=== PATIENT | male | born 1945 | race Caucasian/White ===

== ENCOUNTER → 2018-09-06 | Outpatient (CLI) | payer MEDICARE ==
--- NOTE | 2018-09-07 08:57 | XR ---
EXAMINATION TYPE: XR chest 2V DATE OF EXAM: 09/06/2018 COMPARISON: NONE HISTORY: Influenza and shortness of breath TECHNIQUE: Frontal and lateral views of the chest are obtained. FINDINGS: Patient is rotated. Suspect heart may be enlarged. No evident airspace disease, pneumothor ax, or pleural effusion. Prominent lung volume may be indicative of underlying COPD. Bone mineralizat ion is normal. Flowing anterior osteophytes along the thoracic spine with relative preservation of th e disc spaces may be indicative of diffuse idiopathic skeletal hyperostosis. Aorta is dense. IMPRESSION: Suspect cardiomegaly, additional findings above.
== END ==
LOC: RADXRYALE 16:51
PROVIDERS: ATTEND Family Medicine
DX: J09.X1 Influenza due to identified novel influenza A virus with pneumonia (principal); R06.02 Shortness of breath
CPT/HCPCS: 71046

== ENCOUNTER → 2018-11-19 | Outpatient (CLI) | payer MEDICARE ==
[~2018-11-19] MED LIST: REGADENOSON 0.4 MG/5 ML SYRINGE IV ONE
--- NOTE | 2018-11-19 13:00 | NM ---
EXAMINATION TYPE: NM stress lexiscan cardiolite DATE OF EXAM: 11/19/2018 COMPARISON: Chest x-ray 09/06/2018 HISTORY: Hypertension, morbid obesity TECHNIQUE: After the intravenous administration of 10.24 mCi Tc 99m Sestamibi - Cardiolite resting S PECT images acquired 45 minutes post injection. The patient received 0.4mg Lexiscan, 25.2 mCi Tc 99m Sestamibi - Stress images obtained [address] injection FINDINGS: Review of stress and rest SPECT images demonstrates no distinct perfusion abnormality. Gated analysi s shows normal wall motion with an estimated left ventricular ejection fraction of 61 %. IMPRESSION: No scintigraphic evidence for reversible ischemia.
--- NOTE | 2018-11-19 14:14 | EST ---
EXERCISE STRESS AGE: 73 SEX: M HT: 67" WT: 243 PROTOCOL: Lexiscan Cardiolite Stress Test HEART RATE REST: 75 BLOOD PRESSURE REST: 119/69 MAXIMUM HEART RATE ACHIEVED: 99 MAXIMUM BLOOD PRESSURE: 121/71 INDICATIONS: Difficulty in breathing. CLINICAL INFORMATION: Baseline rhythm is sinus mechanism, rate of 75, right bundle branch block. Baseline blood pressure 119/69 mmHg. Patient received injection of Lexiscan. Electrocardiograph monitoring revealed rare PVCs. There was no evidence of diagnostic ischemic ST deviation. Cardiolite was injected per protocol. CONCLUSION: 1. Nondiagnostic electrocardiograph stress testing. 2. Nuclear images will be reported separately. MMODL / IJN: [id number] /
== END | disposition home or self-care (01) ==
LOC: RADNMMAIN 07:41
PROVIDERS: ATTEND Family Medicine
DX: R06.02 Shortness of breath (principal); I10 Essential (primary) hypertension; E78.2 Mixed hyperlipidemia; E66.01 Morbid (severe) obesity due to excess calories
CPT/HCPCS: 93017; 78452; A9500; J2785

== ENCOUNTER → 2019-03-18 | Outpatient (CLI) | payer MEDICARE ==
--- NOTE | 2019-03-18 18:07 | US ---
EXAMINATION TYPE: US carotid duplex BILAT DATE OF EXAM: 03/18/2019 COMPARISON: NONE CLINICAL HISTORY: G31.84 Mild cognitive impairment, so stated. EXAM MEASUREMENTS: RIGHT: Peak Systolic Velocity (PSV) cm/sec ----- Right CCA: 54.7 ----- Right ICA: 64.0 ----- Right ECA: 94.6 ICA/CCA ratio: 1.1 RIGHT: End Diastole cm/sec ----- Right CCA: 13.7 ----- Right ICA: 19.9 ----- Right ECA: 15.4 LEFT: Peak Systolic Velocity (PSV) cm/sec ----- Left CCA: 75.0 ----- Left ICA: 70.8 ----- Left ECA: 84.8 ICA/CCA ratio: .9 LEFT: End Diastole cm/sec ----- Left CCA: 16.1 ----- Left ICA: 19.6 ----- Left ECA: 16.8 VERTEBRALS (direction of flow): Right Vertebral: Antegrade Left Vertebral: Antegrade Rhythm: Normal No significant stenosis seen IMPRESSION: 1. Atherosclerotic plaque with no significant hemodynamic stenosis Criteria for Assigning % of Stenosis / Diameter reduction (Estimation based on the indirect measurements of the internal carotid artery velocities (ICA PSV). 1. Normal (no stenosis)=ICA PSV < 125 cm/s: ratio < 2.0: ICA EDV<40 cm/s. 2. Less than 50% stenosis=ICA PSV < 125 cm/s: ratio < 2.0: ICA EDV<40 cm/s. 3. 50 to 69% stenosis=ICA PSV of 125 to 230 cm/s: ration 2.0 ? 4.0: ICA EDV 40-100 cm/s. 4. Greater than 70% stenosis to near occlusion= ICA PSV > 230 cm/s: ratio > 4.0: ICA EDV > 100 cm/s. 5. Near occlusion= ICA PSV velocities may be low or undetectable: variable ratio and ICA EDV. 6. Total occlusion=unable to detect flow.
== END | disposition home or self-care (01) ==
LOC: RADUSWWP 16:17
PROVIDERS: ATTEND Family Medicine
DX: I65.23 Occlusion and stenosis of bilateral carotid arteries (principal)
CPT/HCPCS: 93880

== ENCOUNTER → 2019-05-27 | Outpatient (CLI) | payer MEDICARE ==
--- NOTE | 2019-05-27 11:01 | XR ---
Lumbosacral spine HISTORY: Low back pain 5 views of lumbosacral spine There is multilevel spondylosis. Lumbar vertebral bodies show preserved height, alignment, bone raise miner alization. Sclerosis present in the posterior elements of the lower lumbar spine is consistent with f acet arthropathy. Loss of disc height at intervertebral levels especially L4-5 and L5-S1 is accompani ed with vacuum disc phenomenon. Atherosclerotic vascular calcifications are present. No evident spond ylolysis on oblique views. IMPRESSION: Degenerative disc disease and facet arthropathy.
== END | disposition home or self-care (01) ==
LOC: RADXRYALE 10:22
PROVIDERS: ATTEND Family Medicine
DX: M51.37 Other intervertebral disc degeneration, lumbosacral region (principal); M46.97 Unspecified inflammatory spondylopathy, lumbosacral region
CPT/HCPCS: 72110

== ENCOUNTER 2021-12-10 10:20 | Inpatient (IN) | payer MEDICARE ==
[2021-12-10] MEDS ORDERED: SODIUM CHLORIDE 0.9% 1,000 ML IV STA (10:30)
--- NOTE | 2021-12-10 10:34 | ED ---
General Adult HPI - General Stated complaint: GI Bleed Time Seen by Provider: 12/10/21 10:20 Source: patient, RN notes reviewed, old records reviewed - History of Present Illness Initial comments: This is a 76-year-old male presents emergency Department complaining of rectal bleeding. Patient states started on Thursday and has been continuous since. Patient states he was a little lightheaded this morning daughter thought it was a little confused so she called EMS. Patient is alert and oriented 3 currently. Patient states this happened multiple times in the past and usually does not come to the hospital he states it usually stops on its own but this is been a heaviness she's ever had. Patient states his last colonoscopy was years ago. Patient denies any current lightheadedness or dizziness. Patient denies any chest pain palpitations or difficulty breathing. Patient denies any abdominal pain patient denies nausea vomiting diarrhea. - Related Data Allergies Allergy/AdvReac Type Severity Reaction Status Date / Time No Known Allergies Allergy Unverified 11/19/18 08:12 Review of Systems ROS Statement: Those systems with pertinent positive or pertinent negative responses have been documented in the HPI. ROS Other: All systems not noted in ROS Statement are negative. General Exam - General Exam Comments Initial Comments: GENERAL: Patient is well-developed and well-nourished. Patient is nontoxic and well- hydrated and is in no acute distress. ENT: Neck is soft and supple. No significant lymphadenopathy is noted. Oropharynx is clear. Moist mucous membranes. Neck has full range of motion without eliciting any pain. EYES: The sclera were anicteric and conjunctiva were pink and moist. Extraocular movements were intact and pupils were equal round and reactive to light. Eyelids were unremarkable. PULMONARY: Unlabored respirations. Good breath sounds bilaterally. No audible rales rhonchi or wheezing was noted. CARDIOVASCULAR: There is a regular rate and rhythm without any murmurs gallops or rubs. ABDOMEN: Soft and nontender with normal bowel sounds. RECTAL: Rectal exam there were no hemorrhoids there was bright red blood around the anus. Patient also had blood on the way down his right leg. SKIN: Skin is clear with no lesions or rashes and otherwise unremarkable. NEUROLOGIC: Patient is alert and oriented x3. Cranial nerves II through XII are grossly intact. Motor and sensory are also intact. Normal speech, volume and content. Symmetrical smile. MUSCULOSKELETAL: Normal extremities with adequate strength and full range of motion. LYMPHATICS: No significant lymphadenopathy is noted PSYCHIATRIC: Normal psychiatric evaluation. Course Vital Signs 12/10/21 12/10/21 12/10/21 10:28 11:00 11:30 Temperature 98.2 F Pulse Rate 112 H 105 H 100 Respiratory 18 22 22 Rate Blood Pressure 106/49 69/48 66/42 O2 Sat by Pulse 99 99 99 Oximetry 12/10/21 12/10/21 12:00 12:30 Temperature Pulse Rate 96 96 Respiratory 22 18 Rate Blood Pressure 76/44 93/56 O2 Sat by Pulse 97 96 Oximetry Medical Decision Making - Medical Decision Making Patient's creatinine is elevated and it has not been in the past I will consult nephrology. I spoke with Dr. Guzman about GI bleed he states he is willing to be on consult for that. I spoke with some physicians Dr. Brown she agreed to admit the patient admitted the patient wrote admitting orders. - Lab Data Result diagrams: 12/10/21 10:50 12/10/21 10:50 Lab Results 12/10/21 12/10/21 12/10/21 Range/Units 10:45 10:50 10:50 WBC 10.0 (3.8-10.6) k/uL RBC 3.83 L (4.30-5.90) m/uL Hgb 8.8 L (13.0-17.5) gm/dL Hct 29.3 L (39.0-53.0) % MCV 76.3 L (80.0-100.0) fL MCH 23.0 L (25.0-35.0) pg MCHC 30.2 L (31.0-37.0) g/dL RDW 18.6 H (11.5-15.5) % Plt Count 288 (150-450) k/uL MPV 7.5 Neutrophils % (Manual) 64 % Lymphocytes % (Manual) 20 % Monocytes % (Manual) 15 % Basophils % (Manual) 1 % Neutrophils # (Manual) 6.40 (1.3-7.7) k/uL Lymphocytes # (Manual) 2.00 (1.0-4.8) k/uL Monocytes # (Manual) 1.50 H (0-1.0) k/uL Basophils # (Manual) 0.10 (0-0.2) k/uL Nucleated RBCs 0 (0-0) /100 WBC Manual Slide Review Performed Hypochromasia Marked Poikilocytosis Slight Anisocytosis Slight Microcytosis Slight PT (9.0-12.0) sec INR (<1.2) APTT (22.0-30.0) sec Sodium 138 (137-145) mmol/L Potassium 4.8 (3.5-5.1) mmol/L Chloride 106 (98-107) mmol/L Carbon Dioxide 19 L (22-30) mmol/L Anion Gap 13 mmol/L BUN 59 H (9-20) mg/dL Creatinine 3.30 H (0.66-1.25) mg/dL Est GFR (CKD-EPI)AfAm 20 (>60 ml/min/1.73 sqM) Est GFR (CKD-EPI)NonAf 17 (>60 ml/min/1.73 sqM) Glucose 154 H (74-99) mg/dL Calcium 8.7 (8.4-10.2) mg/dL Magnesium 1.9 (1.6-2.3) mg/dL Total Bilirubin 0.6 (0.2-1.3) mg/dL AST 15 L (17-59) U/L ALT 12 (4-49) U/L Alkaline Phosphatase 61 (38-126) U/L Troponin I (0.000-0.034) ng/mL Total Protein 6.0 L (6.3-8.2) g/dL Albumin 3.6 (3.5-5.0) g/dL Blood Type Blood Type Confirm A Positive Blood Type Recheck Bld Type Recheck Status Antibody Screen Spec Expiration Date 12/10/21 12/10/21 12/10/21 Range/Units 10:50 10:50 11:39 WBC (3.8-10.6) k/uL RBC (4.30-5.90) m/uL Hgb (13.0-17.5) gm/dL Hct (39.0-53.0) % MCV (80.0-100.0) fL MCH (25.0-35.0) pg MCHC (31.0-37.0) g/dL RDW (11.5-15.5) % Plt Count (150-450) k/uL MPV Neutrophils % (Manual) % Lymphocytes % (Manual) % Monocytes % (Manual) % Basophils % (Manual) % Neutrophils # (Manual) (1.3-7.7) k/uL Lymphocytes # (Manual) (1.0-4.8) k/uL Monocytes # (Manual) (0-1.0) k/uL Basophils # (Manual) (0-0.2) k/uL Nucleated RBCs (0-0) /100 WBC Manual Slide Review Hypochromasia Poikilocytosis Anisocytosis Microcytosis PT 10.8 (9.0-12.0) sec INR 1.0 (<1.2) APTT 18.9 L (22.0-30.0) sec Sodium (137-145) mmol/L Potassium (3.5-5.1) mmol/L Chloride (98-107) mmol/L Carbon Dioxide (22-30) mmol/L Anion Gap mmol/L BUN (9-20) mg/dL Creatinine (0.66-1.25) mg/dL Est GFR (CKD-EPI)AfAm (>60 ml/min/1.73 sqM) Est GFR (CKD-EPI)NonAf (>60 ml/min/1.73 sqM) Glucose (74-99) mg/dL Calcium (8.4-10.2) mg/dL Magnesium (1.6-2.3) mg/dL Total Bilirubin (0.2-1.3) mg/dL AST (17-59) U/L ALT (4-49) U/L Alkaline Phosphatase (38-126) U/L Troponin I 0.028 (0.000-0.034) ng/mL Total Protein (6.3-8.2) g/dL Albumin (3.5-5.0) g/dL Blood Type A Positive Blood Type Confirm Blood Type Recheck No Previous Record Bld Type Recheck Status CABO Indicated Antibody Screen NEGATIVE Spec Expiration Date 12/13/20212349 Disposition Clinical Impression: GI bleed, Anemia, Acute renal failure Disposition: ADMITTED IP TO THIS [facility] Referrals: None,Stated [Primary Care Provider] - 1-2 days Time of Disposition: 12:54
[2021-12-10 11:13] LABS: Albumin 3.6 g/dL (3.5-5.0); Calcium 8.7 mg/dL (8.4-10.2); Magnesium 1.9 mg/dL (1.6-2.3); Potassium 4.8 mmol/L (3.5-5.1); Total Bilirubin 0.6 mg/dL (0.2-1.3)
[2021-12-10 11:30] LABS: Anisocytosis Slight; HCT 29.3 % (39.0-53.0); HGB 8.8 gm/dL (13.0-17.5); Hypochromasia Marked; MCHC 30.2 g/dL (31.0-37.0); MCV 76.3 fL (80.0-100.0); Mean Platelet Volume 7.5; Microcytosis Slight; Platelet Count 288 k/uL (150-450); Poikilocytosis Slight; RBC 3.83 m/uL (4.30-5.90); RDW 18.6 % (11.5-15.5)
[2021-12-10 12:17] LABS: Prothrombin Time 10.8 sec (9.0-12.0)
[2021-12-10 12:22] LABS: Partial Thromboplastin Time 18.9 sec (22.0-30.0)
[2021-12-10 12:36] LABS: Neutrophils % (M) 64 %; Nucleated Red Blood Cells 0 /100 WBC (0-0); Total Cells Counted 100
[2021-12-10] MEDS ORDERED: SODIUM CHLORIDE 0.9% 1,000 ML IV ONE ×2 (12:54→23:20)
[2021-12-10] MEDS ORDERED: MELATONIN 3 MG TABLET PO PRN (13:32)
[2021-12-10] MEDS ORDERED: ONDANSETRON 4 MG/2 ML VIAL IVP PRN (13:32)
[2021-12-10] MEDS ORDERED: ACETAMINOPHEN TAB 325 MG TAB PO PRN (13:32)
[2021-12-10] MEDS ORDERED: NALOXONE 0.4 MG/ML 1 ML VIAL IV PRN (13:32)
[2021-12-10] MEDS ORDERED: PANTOPRAZOLE 40 MG/10 ML VIAL IVP ONE (13:36)
--- NOTE | 2021-12-10 13:43 | P.HPIM ---
History of Present Illness H&P Date: 12/10/21 Chief Complaint: GI bleed Patient is a 76-year-old male patient of Dr. Joel with diabetes, hypertension, and dyslipidemia who presented to the ER with complaints of bright red blood per rectum. In the ER he underwent extensive evaluation. On arrival he was tachycardic with a pulse of 112. His blood pressure got as low as 66/42. He was given 1 L bolus. Laboratory analysis showed hemoglobin of 8.8, BUN 59, creatinine 3.3. PT/INR was normal. Arrangements are made for admission. Surgery and nephrology were consulted. Patient seen and examined at bedside in the emergency department. His daughter helps with history gathering. He started having rectal bleeding approximately 2 days ago. It continued to worsen and he therefore decided to present to the ER. He states it is pulled bright red and dark with some clots. He has been having consistent and frequent diarrhea. He denies any abdominal pain, nausea. He has been eating and drinking normally. He states that he gets these episodes approximately twice a year but they usually last 2 days and self resolved. He had colonoscopies in the past which were unrevealing his last one was approximately 7 years ago. He has a history of polycythemia and sees Dr. Adorno. He typically has phlebotomy performed if his hemoglobin is greater than 15 or hematocrit is greater than 45. He has been taking more NSAIDs than typical due to a tooth extraction. He denies any shortness of breath, lightheadedness, dizziness, chest pain. No fevers or chills. He reports that he has had increasing edema and Dr. Joel he referred him for echocardiogram due to his murmur and lower extremity edema. Pertinent positives and negatives as discussed in HPI, a complete review of systems was performed and all other systems are negative. Vital signs reviewed General: Ill appearing, mild distress, appears at stated age Derm: warm, dry, blood streaked down both legs Head: atraumatic, normocephalic, symmetric Eyes: EOMI, no lid lag, anicteric sclera, pupils equal round reactive to light ENT: Nose and ears atraumatic, no thrush, no pharyngeal erythema Neck: No thyromegaly, no cervical lymphadenopathy, trachea midline, supple Mouth: no lip lesion, mucus membranes moist Cardiovascular: S1S2 reg, with grade 4 systolic ejection murmur, positive posterior tibial pulse bilateral, 3+ edema, capillary refill less than 2 seconds Lungs: clear to auscultation bilateral, no rhonchi, no rales, no wheeze, no accessory muscle use Abdominal: soft, nontender to palpation, no guarding, no appreciable organomegaly, normal bowel sounds Ext: no gross muscle atrophy, muscle strength muscle strength 5 out of 5 in all 4 extremities, no contractures Neuro: CN II-XII grossly intact, light touch intact all 4 extremities, finger to nose within normal limits, Psych: Alert, oriented, appropriate affect Assessment/Plan: Acute GI bleed Acute blood loss anemia with history of polycythemia NSAID use -IV fluids -Serial hemoglobins -Transfuse for hemoglobin less than 8 -Follow frequent vital signs -Surgery consultation, Heme/onc recs -Nothing by mouth except ice chips - IV PPI Acute kidney injury Metabolic acidosis - hold ACEI, hold HCTZ, hold metformin -Likely related to above -Bladder scan -Check renal ultrasound -IV fluids gentle in the setting of lower extremity edema -Nephrology consultation - avoid additional nephrotoxic agents Lower extremity edema with systolic ejection murmur -Check echocardiogram DM 2 - hold oral - SSI - follow BS Hypertension - hold meds due to bordeline BP - follow BP The patient is admitted with an anticipated greater than 2 midnight stay for evaluation of GI bleed. Surrogate decision-maker: Daughter CODE STATUS:Full DVT prophylaxis: SCDs Discussed with: Patient, ED provider, daugther Anticipated discharge date: in 2-[address]: home A total of 65 minutes was spent on the care of this complex patient more than 50% of the time was spent in counseling and care coordination. Past Medical History Past Medical History: Diabetes Mellitus, Hyperlipidemia, Hypertension Additional Past Medical History / Comment(s): bladder issues, polycthemia, low testerone, heart murmur History of Any Multi-Drug Resistant Organisms: None Reported Past Surgical History: Tonsillectomy Past Psychological History: No Psychological Hx Reported Smoking Status: Former smoker Past Alcohol Use History: None Reported Past Drug Use History: None Reported - Past Family History Father History Unknown: Yes Medications and Allergies Allergies Allergy/AdvReac Type Severity Reaction Status Date / Time No Known Allergies Allergy Unverified 11/19/18 08:12 Physical Exam Osteopathic Statement: *. No significant issues noted on an osteopathic structural exam other than those noted in the History and Physical/Consult. Vitals: Vital Signs Temp Pulse Resp BP Pulse Ox 12/10/21 12:30 96 18 93/56 96 12/10/21 12:00 96 22 76/44 97 12/10/21 11:30 100 22 66/42 99 12/10/21 11:00 105 H 22 69/48 99 12/10/21 10:28 98.2 F 112 H 18 106/49 99 Intake and Output 12/09/21 12/10/21 12/10/21 22:59 06:59 14:59 Other: Weight 97.522 kg Results CBC & Chem 7: 12/10/21 10:50 12/10/21 10:50 Labs: Abnormal Lab Results - Last 24 Hours (Table) 12/10/21 12/10/21 12/10/21 Range/Units 10:50 10:50 11:39 RBC 3.83 L (4.30-5.90) m/uL Hgb 8.8 L (13.0-17.5) gm/dL Hct 29.3 L (39.0-53.0) % MCV 76.3 L (80.0-100.0) fL MCH 23.0 L (25.0-35.0) pg MCHC 30.2 L (31.0-37.0) g/dL RDW 18.6 H (11.5-15.5) % Monocytes # (Manual) 1.50 H (0-1.0) k/uL APTT 18.9 L (22.0-30.0) sec Carbon Dioxide 19 L (22-30) mmol/L BUN 59 H (9-20) mg/dL Creatinine 3.30 H (0.66-1.25) mg/dL Glucose 154 H (74-99) mg/dL AST 15 L (17-59) U/L Total Protein 6.0 L (6.3-8.2) g/dL
[2021-12-10 14:04] LABS: Anisocytosis Slight; HCT 27.7 % (39.0-53.0); HGB 8.1 gm/dL (13.0-17.5); Hypochromasia Marked; MCH 22.4 pg (25.0-35.0); MCHC 29.3 g/dL (31.0-37.0); MCV 76.5 fL (80.0-100.0); Microcytosis Slight; Platelet Count 289 k/uL (150-450); RBC 3.62 m/uL (4.30-5.90); RDW 18.6 % (11.5-15.5); WBC 9.8 k/uL (3.8-10.6)
[2021-12-10 15:07] LABS: Reticulocyte % 3.5 % (0.5-2.0)
[2021-12-10 15:08] LABS: Band Neutrophils % 1 %; Lymphocytes # (M) 1.57 k/uL (1.0-4.8); Monocytes # (M) 0.39 k/uL (0-1.0); Neutrophils % (M) 79 %; Nucleated Red Blood Cells 0 /100 WBC (0-0); Total Cells Counted 100
[2021-12-10 15:09] LABS: Poikilocytosis (M) Present
[2021-12-10 20:12] LABS: Glucose,Whole Blood 131 mg/dL (70-110)
[2021-12-10 20:34] LABS: Anisocytosis Slight; HCT 25.7 % (39.0-53.0); HGB 7.6 gm/dL (13.0-17.5); Hypochromasia Marked; MCH 23.1 pg (25.0-35.0); MCHC 29.7 g/dL (31.0-37.0); MCV 77.7 fL (80.0-100.0); Mean Platelet Volume 6.9; Microcytosis Slight; Platelet Count 257 k/uL (150-450); RBC 3.31 m/uL (4.30-5.90); RDW 18.5 % (11.5-15.5); WBC 8.2 k/uL (3.8-10.6)
[2021-12-10] MEDS: PRAVASTATIN SODIUM 40 MG TAB PO SCH (20:52)
[2021-12-10] MEDS: PANTOPRAZOLE 40 MG/10 ML VIAL IVP SCH (20:53)
[2021-12-10 21:26] LABS: Eosinophils # (M) 0.08 k/uL (0-0.7); Monocytes # (M) 0.49 k/uL (0-1.0); Neutrophils # (M) 5.82 k/uL (1.3-7.7); Neutrophils % (M) 71 %; Nucleated Red Blood Cells 0 /100 WBC (0-0); Total Cells Counted 100
[2021-12-10 23:18] LABS: % Iron Saturation 3.05 (15.00-50.00); Ferritin 15.4 ng/mL (22.0-322.0)
[2021-12-10 23:25] LABS: Immunoglobulin M 29.6 mg/dL (40.0-280.0); Protein, Total 5.5 g/dL (6.2-8.2)
[2021-12-10 23:48] LABS: Glucose,Whole Blood 118 mg/dL (70-110)
[2021-12-11 05:47] LABS: Anisocytosis Slight; HCT 24.2 % (39.0-53.0); HGB 7.3 gm/dL (13.0-17.5); Hypochromasia Marked; MCH 23.8 pg (25.0-35.0); MCHC 30.3 g/dL (31.0-37.0); MCV 78.6 fL (80.0-100.0); Microcytosis Slight; Platelet Count 216 k/uL (150-450); Poikilocytosis Slight; RBC 3.08 m/uL (4.30-5.90); WBC 8.6 k/uL (3.8-10.6)
[2021-12-11 06:01] LABS: Albumin 3.2 g/dL (3.5-5.0); Calcium 7.8 mg/dL (8.4-10.2); Potassium 4.9 mmol/L (3.5-5.1); Total Bilirubin 0.8 mg/dL (0.2-1.3); Total Protein 5.4 g/dL (6.3-8.2)
[2021-12-11 08:17] LABS: Appearance,Urine Clear (Clear); Bilirubin,Urine Negative (Negative); Blood,Urine Negative (Negative); Color,Urine Colorless; Glucose,Urine (UA) Negative (Negative); Ketones,Urine 1+ (Negative); Leukocyte Esterase,Urine Negative (Negative); Nitrite,Urine Negative (Negative); Protein,Urine Negative (Negative); Urobilinogen,Urine <2.0 mg/dL (<2.0)
[2021-12-11] MEDS: PANTOPRAZOLE 40 MG/10 ML VIAL IVP SCH ×2 (08:41→21:45)
--- NOTE | 2021-12-11 08:43 | P.NPCON ---
History of Present Illness - Reason for Consult acute renal failure - History of Present Illness Reason for consultation: Acute kidney injury History of present illness: Patient is a 76-year-old male seen in renal consultation for acute kidney injury. Patient baseline creatinine is in the range of 1-1.2. Creatine on admission was 3.3 and is down to 2.11 today. Patient presented to the hospital due to blood in the stool. Patient noticed bright red blood with bowel movements which started on Thursday. Patient states he's had similar episodes in the past. Patient states the last 2-3 days and resolved spontaneously. He denies any dizziness or syncopal episodes. Denies vomiting or diarrhea. Tess ent's blood pressure was low in the systolic 70s on admission and he did receive a fluid bolus. He has also received a unit of blood and is scheduled to receive another unit today. Patient does admit to taking ibuprofen for the last 3 weeks after he got his teeth pulled. He does have history of diabetes. Denies family history of renal disease. Denies history of heart disease. No vomiting or diarrhea. No fever or chills. He was taking metformin as well as lisinopril outpatient which are both currently held. He's currently receiving IV fluids. Vital signs are stable. General: Awake and alert. No acute distress. HEENT: Head exam is unremarkable. LUNGS: Breath sounds decreased. HEART: Rate and Rhythm are regular. ABDOMEN: Soft, no distention. Nontender. EXTREMITITES: Trace edema. Past Medical History Past Medical History: Blood Disorder, Diabetes Mellitus, Hyperlipidemia, Hypertension Additional Past Medical History / Comment(s): Past rectal bleeds, polycythemia, NIDDM, recently had lower 5 teeth extracted, R lower leg edema, heart murmur, DDD with occasional back pain. History of Any Multi-Drug Resistant Organisms: None Reported Past Surgical History: Tonsillectomy Additional Past Surgical History / Comment(s): Colonoscopies, bilateral cataract removals/lens implants, R mastoid surgery at age 4 yrs. Past Anesthesia/Blood Transfusion Reactions: No Reported Reaction Smoking Status: Former smoker - Past Family History Father History Unknown: Yes Family Medical History: No Reported History Additional Family Medical History / Comment(s): Father was healthy and lived into his 90s. Mother History Unknown: Yes Medications and Allergies Home Medications Medication Instructions Recorded Confirmed Type Aspirin EC [Ecotrin Low Dose] 81 mg PO DAILY 12/10/21 12/10/21 History Multivitamins, Thera [Multivitamin 1 tab PO DAILY 12/10/21 12/10/21 History (formulary)] [place]-3/Dha/Epa/Fish Oil [Fish Oil 1 cap PO TID 12/10/21 12/10/21 History 1,000 mg Softgel] Oxybutynin Chloride [Ditropan] 5 mg PO TID 12/10/21 12/10/21 History Pravastatin Sodium [Pravachol] 40 mg PO HS 12/10/21 12/10/21 History Testosterone Cypionate 200 mg IM Q10D 12/10/21 12/10/21 History [Depo-Testosterone] lisinopriL 40 mg PO DAILY 12/10/21 12/10/21 History metFORMIN HCL [Glucophage] 500 mg PO BID 12/10/21 12/10/21 History Allergies Allergy/AdvReac Type Severity Reaction Status Date / Time No Known Allergies Allergy Verified 12/10/21 13:44 Physical Exam Vitals: Vital Signs Temp Pulse Pulse Resp BP BP Pulse Ox 12/11/21 07:00 101 H 21 102/55 95 12/11/21 06:30 96 14 99/53 94 L 12/11/21 06:00 99 9 L 117/60 93 L 12/11/21 05:30 101 H 12 89/61 94 L 12/11/21 05:00 96 3 L 98/51 92 L 12/11/21 04:30 99 21 94/53 94 L 12/11/21 04:00 98.3 F 95 12 94/48 93 L 12/11/21 03:30 95 12 90/55 94 L 12/11/21 03:00 96 5 L 89/53 93 L 12/11/21 02:45 98 14 97/54 93 L 12/11/21 02:30 121 H 14 97/54 86 L 12/11/21 02:15 100 7 L 98/53 95 12/11/21 02:02 98.2 F 92 14 99/52 94 L 12/11/21 02:00 98 5 L 99/52 96 12/11/21 01:45 99 23 98/56 96 12/11/21 01:30 105 H 25 H 95/53 94 L 12/11/21 01:15 101 H 4 L 93/46 93 L 12/11/21 01:00 99 5 L 93/46 93 L 12/11/21 00:45 105 H 7 L 98/50 94 L 12/11/21 00:30 106 H 14 119/99 97 12/11/21 00:15 104 H 5 L 98/56 89 L 12/11/21 00:00 104 H 12 98/56 95 12/10/21 23:58 97.7 F 104 H 14 98/56 94 L 12/10/21 23:45 105 H 6 L 100/66 94 L 12/10/21 23:30 112 H 9 L 96 12/10/21 23:29 32 H 12/10/21 23:28 98.2 F 109 H 14 124/61 94 L 12/10/21 23:18 98 F 103 H 14 91/52 93 L 12/10/21 20:00 97.5 F L 99 12 78/44 93 L 12/10/21 18:52 97.4 F L 73 16 86/49 99 12/10/21 18:30 86/53 12/10/21 18:24 98.2 F 82 16 100/67 100 12/10/21 18:15 93 13 95/53 100 12/10/21 18:00 92 22 72/52 100 12/10/21 17:45 96 17 102/61 99 12/10/21 17:30 97 5 L 89/55 100 12/10/21 17:15 103 H 24 98/48 99 12/10/21 17:00 92 8 L 100/67 100 12/10/21 16:45 96 32 H 83/47 100 12/10/21 16:43 98 15 83/47 100 12/10/21 16:00 98.1 F 98 18 87/57 99 12/10/21 15:00 92 18 70/58 97 12/10/21 14:53 90 18 70/58 98 12/10/21 14:00 93 18 86/44 98 12/10/21 13:00 101 H 16 83/57 100 12/10/21 12:30 96 18 93/56 96 12/10/21 12:00 96 22 76/44 97 12/10/21 11:30 100 22 66/42 99 12/10/21 11:00 105 H 22 69/48 99 07/05/22 10:28 98.2 F 112 H 18 106/49 99 Intake and Output 12/10/21 12/11/21 12/11/21 22:59 06:59 14:59 Intake Total 2070 75 Output Total 650 100 Balance 1420 -25 Intake: Intake, IV Titration 1450 75 Amount Sodium Chloride 0.9% 1, 450 75 000 ml @ 75 mls/hr IV . [id number] ONE Rx#:[id number] Sodium Chloride 0.9% 1, 1000 000 ml @ 999 mls/hr IV . Q1H1M ONE Rx#:[id number] Blood Product 620 Rc As-1 Unit 310 [id number] Output: Urine 650 100 Other: Voiding Method Toilet Toilet # Voids 2 1 # Bowel Movements 4 Weight 97.522 kg 101.5 kg Results - Lab Results Most recent lab results Calcium 7.8 mg/dL (8.4-10.2) L 12/11/21 05:41 Magnesium 2.0 mg/dL (1.6-2.3) 12/11/21 05:41 12/11/21 05:41 12/11/21 05:41 Assessment and Plan Plan: Assessment: 1. Acute kidney injury mostly prerenal secondary to hypotension. Creatinine was 3.3 on admission and is 2.11 today. Baseline creatinine 1-1.2. UA benign. 2. Acute GI bleed. Status post blood transfusion this admission. Hemoglobin 7.3. Surgery consulted. 3. Metabolic acidosis secondary to acute kidney injury, metformin and IV fluids. 4. History of polycythemia. 5. Diabetes mellitus. Plan: Decrease rate of normal saline to 50 mL an hour. Continue to hold antihypertensives. Scheduled to receive another unit of blood today. Check renal ultrasound. Follow-up echocardiogram. Continue to monitor renal function and urine output. Thank you for the consultation. I will continue to follow the patient with you during his hospital stay.
[2021-12-11] MEDS: SODIUM CHLORIDE 0.9% 1,000 ML IV SCH (09:30)
[2021-12-11] MEDS: LACTATED RINGERS 1,000 ML IV SCH (09:30)
--- NOTE | 2021-12-11 09:41 | US ---
EXAMINATION TYPE: US kidneys/renal and bladder DATE OF EXAM: 12/11/2021 COMPARISON: NONE CLINICAL HISTORY: nba. EXAM MEASUREMENTS: Right Kidney: 12.3 x 5.9 x 5.0 cm Left Kidney: 11.1 x 6.4 x 5.0 cm Right Kidney: No hydronephrosis or masses seen Left Kidney: No hydronephrosis or masses seen Bladder: ANECHOIC, DISTENDED Bilateral Jets seen: Yes There is no evidence for hydronephrosis at this point in time. No nephrolithiasis is seen. No darcy s are identified. The urinary bladder is anechoic. Bilateral ureteral jets are seen. IMPRESSION: No evidence for obstructive uropathy.
[2021-12-11] MEDS: SODIUM FERRIC GLUCONAT-SUCROSE 125 MG in SODIUM CHLORIDE 0.9% 100 ML IVPB SCH (10:00)
--- NOTE | 2021-12-11 10:49 | P.CONS ---
History of Present Illness - Reason for Consult Consult date: 12/10/21 GI Bleed, PV Requesting physician: Marilou Brown - History of Present Illness HPI : Mr. Varghese now presents to hospital with active GI bleeding. He was tachycardic with a pulse of 112. Hypotensive. Hemoglobin 8.8 (when his baseline is 50% greater than this requiring monthly phlebotomy), New onset renal insufficiency BUN 59, creatinine 3.3. No evidence of coagulaopathy. He was admitted to ICU for further eval. He has followed our practice many years, per that record he has had rectal bleeding on and off and has not been adherent to GI evals. However in the record therre is not evidence of an acute severe drop as there is in this admission. To note I do not have if patient has JAK2 or not. Hematological History: Pt is seen f/u and monitoring of his Polycythemia Vera, diagnosed around 2007, for which he receives phlebotomy periodically. The pt has been having rectal bleeding off and on since at least mid 2014. He was recommended to have a GI w/u but did not do so, as he thought this was due to his diet. He stopped eating nuts in late 2014. He had an EGD and colonoscopy in 08/21, which were negative other than diverticulosis. He missed his 09/23 appt as his had been quite ill. She in 10/23. He resumed phlebo in 11/23 He is continuing on baby ASA. telemedicine 10/10/19: The patient has been in his usual state of health overall. He denied any hospital or ER visits. He denied any f/c/n/v/itching or redness of the extremities. He had 2 days of small amounts of BRBPR in 05/25, with spontaneous resolution. he had another recurrence lasting about 3-4 days, with small amounts of blood in stool. He states that he had been eating pistachios, and this stopped once he stopped eating the nuts. He has mild fatigue, which is stable. He has very occasional, transient dizziness. No h/o jt swelling or edema. His ROS is otherwise as per HPI and negative out of 10. as above. Due to increase in hemoglobin and hematocrit. He was changed to phlebotomies every 2 months after his visit in 10/25. He was started on Hydrea 500 mg once a day in 07/29. he had a good response to the same, with Hgb dropping into thge 13 range. At his visit in 09/26, phlebo intervals were increased back to Q 3mths, and Hydrea held per the pt's request At this visit on 04/26/21, Hct was still > 45. The pt was thus asked to restart Hydea at 500 QOD. However he hgas not done so despite repeated urging. He denied any fevers/chills/nausea/vomiting. No history of any redness or itching of the extremities. He has had bleeding per rectum, again in 09/27, lasting about 2 days. He continues on aspirin. 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 Review of systems otherwise as per HPI and negative out of [address] Adorno october 2021, The pt is tolerating his phlebotomies well. His C BC today shows Hgb at 13.9, but HCT remains > 45 at 48 - He was advised that with phlebo alone, hos Hgb is dropping, but Hct is still staying elevated. More aggressive phlebo could potentially drop his Hgb lower than desired. He was thus strongly urged to try Hydrea. Benefits, efficacy, toelrance in general, and possible side effects were discussed ind etail. - He finally stated he was willing to try - Check labs - Repeat Phlebo also initiated the following month Vital signs reviewed Review of Systems All systems: negative Constitutional: Reports as per HPI Past Medical History Past Medical History: Diabetes Mellitus, Hyperlipidemia, Hypertension Additional Past Medical History / Comment(s): bladder issues, polycthemia, low testerone, heart murmur History of Any Multi-Drug Resistant Organisms: None Reported Past Surgical History: Tonsillectomy Past Psychological History: No Psychological Hx Reported Smoking Status: Former smoker Past Alcohol Use History: None Reported Past Drug Use History: None Reported - Past Family History Father History Unknown: Yes Mother History Unknown: Yes Medications and Allergies Home Medications Medication Instructions Recorded Confirmed Type Aspirin EC [Ecotrin Low Dose] 81 mg PO DAILY 12/10/21 12/10/21 History Multivitamins, Thera [Multivitamin 1 tab PO DAILY 12/10/21 12/10/21 History (formulary)] [place]-3/Dha/Epa/Fish Oil [Fish Oil 1 cap PO TID 12/10/21 12/10/21 History 1,000 mg Softgel] Oxybutynin Chloride [Ditropan] 5 mg PO TID 12/10/21 12/10/21 History Pravastatin Sodium [Pravachol] 40 mg PO HS 12/10/21 12/10/21 History Testosterone Cypionate 200 mg IM Q10D 12/10/21 12/10/21 History [Depo-Testosterone] lisinopriL 40 mg PO DAILY 12/10/21 12/10/21 History metFORMIN HCL [Glucophage] 500 mg PO BID 12/10/21 12/10/21 History Allergies Allergy/AdvReac Type Severity Reaction Status Date / Time No Known Allergies Allergy Verified 12/10/21 13:44 Physical Exam Vitals: Vital Signs Temp Pulse Resp BP Pulse Ox 12/10/21 12:30 96 18 93/56 96 12/10/21 12:00 96 22 76/44 97 12/10/21 11:30 100 22 66/42 99 12/10/21 11:00 105 H 22 69/48 99 12/10/21 10:28 98.2 F 112 H 18 106/49 99 Intake and Output 12/09/21 12/10/21 12/10/21 22:59 06:59 14:59 Other: Weight 97.522 kg Darkened grayish skin Alert NAD Abdomen dis, soft HR Irr Results CBC & Chem 7: 12/11/21 05:41 12/11/21 05:41 Labs: Abnormal Lab Results - Last 24 Hours (Table) 12/10/21 12/10/21 12/10/21 Range/Units 10:50 10:50 11:39 RBC 3.83 L (4.30-5.90) m/uL Hgb 8.8 L (13.0-17.5) gm/dL Hct 29.3 L (39.0-53.0) % MCV 76.3 L (80.0-100.0) fL MCH 23.0 L (25.0-35.0) pg MCHC 30.2 L (31.0-37.0) g/dL RDW 18.6 H (11.5-15.5) % Monocytes # (Manual) 1.50 H (0-1.0) k/uL APTT 18.9 L (22.0-30.0) sec Carbon Dioxide 19 L (22-30) mmol/L BUN 59 H (9-20) mg/dL Creatinine 3.30 H (0.66-1.25) mg/dL Glucose 154 H (74-99) mg/dL AST 15 L (17-59) U/L Total Protein 6.0 L (6.3-8.2) g/dL 12/10/21 Range/Units 13:30 RBC 3.62 L (4.30-5.90) m/uL Hgb 8.1 L (13.0-17.5) gm/dL Hct 27.7 L (39.0-53.0) % MCV 76.5 L (80.0-100.0) fL MCH 22.4 L (25.0-35.0) pg MCHC 29.3 L (31.0-37.0) g/dL RDW 18.6 H (11.5-15.5) % Monocytes # (Manual) (0-1.0) k/uL APTT (22.0-30.0) sec Carbon Dioxide (22-30) mmol/L BUN (9-20) mg/dL Creatinine (0.66-1.25) mg/dL Glucose (74-99) mg/dL AST (17-59) U/L Total Protein (6.3-8.2) g/dL Assessment and Plan (1) Polycythemia vera Narrative/Plan: - last required phlebotomy 11/13/21 hemoglobin was 16.7 - Hold phlebotomies at this time. Current Visit: Yes Status: Acute Code(s): D45 - POLYCYTHEMIA VERA SNOMED Code(s): 780589245 (2) Acute renal failure Narrative/Plan: - New finding and nephrology following Current Visit: Yes Status: Acute Code(s): N17.9 - ACUTE KIDNEY FAILURE, UNSPECIFIED SNOMED Code(s): 40014360 (3) Anemia Narrative/Plan: Severe 50% loss of blood GI evaluation is recommended jacinda to assess for underlying cause of bleed Hold AC, ASA Evidence of IRon deficiency with active bleed Parental Iron ordered OK to transfuse PRBC Current Visit: Yes Status: Acute Code(s): D64.9 - ANEMIA, UNSPECIFIED SNOMED Code(s): 479073644 (4) GI bleed Current Visit: Yes Status: Acute Code(s): K92.2 - GASTROINTESTINAL HEMORRHAGE, UNSPECIFIED SNOMED Code(s): 43625843
--- NOTE | 2021-12-11 11:34 | CA ---
Transthoracic Echo Report Name: Vince Varghese Age: 76 Gender: M : 1945 Exam Date: 12/10/2021 14:05 Exam Location: [facility] Ht (in): 66 Wt (lb): 215 Ordering Physician: Marilou Brown DO Attending/Referring Phys: [id number], Stephanie Dedicated Driver Aicha Hernandez RDCS Procedure CPT: Indications: chf, murmur Cardiac Hx: Technical Quality: Fair Contrast 1: Total Dose (mL): Contrast 2: Total Dose (mL): MEASUREMENTS (Male / Female) Normal Values 2D ECHO LV Diastolic Diameter PLAX 4.1 cm 4.2 - 5.9 / 3.9 - 5.3 cm LV Systolic Diameter PLAX 2.7 cm IVS Diastolic Thickness 1.6 cm 0.6 - 1.0 / 0.6 - 0.9 cm LVPW Diastolic Thickness 2.1 cm 0.6 - 1.0 / 0.6 - 0.9 cm LV Relative Wall Thickness 0.9 LA Volume 96.7 cm??? 18 - 58 / 22 - 52 cm??? M-MODE Aortic Root Diameter MM 3.6 cm DOPPLER AV Peak Velocity 523.7 cm/s AV Peak Gradient 109.7 mmHg AV Mean Velocity 384.3 cm/s AV Mean Gradient 66.9 mmHg AV Velocity Time Integral 95.8 cm AI Peak Velocity 302.2 cm/s AI Peak Gradient 36.5 mmHg AI Pressure Half Time 366.5 ms LVOT Peak Velocity 121.2 cm/s LVOT Peak Gradient 5.9 mmHg MV Peak Velocity 223.6 cm/s MV Peak Gradient 20.0 mmHg MV Mean Velocity 137.3 cm/s MV Mean Gradient 8.1 mmHg MV Velocity Time Integral 44.4 cm MV Area PHT 2.3 cm??? Mitral E Point Velocity 82.2 cm/s Mitral A Point Velocity 205.4 cm/s Mitral E to A Ratio 0.4 MV Deceleration Time 327.1 ms TR Peak Velocity 299.7 cm/s TR Peak Gradient 35.9 mmHg Right Ventricular Systolic Press 40.3 mmHg FINDINGS Left Ventricle Moderately increased septal wall thickness. No obvious regional wall motion abnormalities. Left ventricular ejection fraction is estimated at 55 %. Right Ventricle Normal right ventricular size and function. Mild pulmonary hypertension. Right Atrium Normal right atrial size. Left Atrium Severely increased left atrial volume. No evidence for an atrial septal defect. Mitral Valve Moderate mitral annular calcification. Mitral valve thickened. Moderate mitral regurgitation. Mild mitral stenosis. Aortic Valve Severe aortic stenosis with a peak velocity of 524 m/s, peak gradient 110 mmHg, mean gradient 67 mmHg. Trace aortic regurgitation. Tricuspid Valve [id number] tricuspid regurgitation. Pulmonic Valve Trace pulmonic regurgitation. Pericardium No pericardial effusion. Aorta Normal size aortic root and proximal ascending aorta. CONCLUSIONS Technically difficult study for interpretation Normal left ventricular dimension and systolic function. Moderate concentric left ventricular hypertrophy Thickened mitral valve leaflets with mild/moderate mitral stenosis and mild mitral regurgitation Severe aortic stenosis. The mean gradient 67 mmHg. The aortic valve is extremely calcified Previewed by: Dr. Chano Ceja MD (Electronically Signed) Final Date: 11 December 2021 11:34
[2021-12-11] MEDS ORDERED: PEG 3350-NA SULF,BICARB,CL/KCL 4,000 ML BOTTLE PO ONE (12:03)
--- NOTE | 2021-12-11 12:14 | P.CNPUL ---
History of Present Illness Consult date: 12/11/21 Requesting physician: Marilou Brown Reason for consult: other (GI bleeding, I see management) Chief complaint: Bright red blood per rectum History of present illness: This is a 76-year-old white male with history of diabetes, hypertension, dyslipidemia, patient presented to the ER yesterday with 2 days history of bright red blood per rectum. Upon evaluation in the ER, patient was noted to be a bit tachycardic, blood pressure was 66/42, and his hemoglobin was 8.8. Patient received 1 L of fluid boluses, he also received a unit of packed RBCs, admitted to the ICU, and this consult was initiated. General surgery was consulted, patient is supposed to undergo colonoscopy sometime later today. Supposedly the patient had his last colonoscopy was 7 years ago. And it was supposedly normal. Patient is known to have history of polycythemia and he normally sees the parking meter installer for his polycythemia, typically undergoes phlebotomy on a regular basis for his elevated hemoglobin and hematocrit. Patient has been taking recently significant amount of ibuprofen for dental pain as he had recent teeth extractions. Patient denies any denies any lightheadedness, denies any chest pain. He also denies fever or chills. Hemoglobin on his initial presentation was 8.8. Today hemoglobin is 7.3 however he did receive a unit of packed RBCs since admission. Patient is now on IV fluids at 50 mL per hour, is also on pantoprazole at 40 mg IV push twice a day. Patient is also receiving for a ferric gluconate. On admission the patient was noted to have acute kidney injury with creatinine of 3.30 and today it is 2.11, patient is normally on metformin for diabetes. This is being addressed by nephrology on the case. Review of Systems Constitutional: Negative HEENT: Negative Cardiac: Negative Pulmonary: Negative GI: As noted in HPI Genitourinary: Negative Hematologic: As noted in HPI Neurologic: Negative Psychiatric: Negative Musculoskeletal: Negative Skin: Negative Past Medical History Past Medical History: Diabetes Mellitus, Hyperlipidemia, Hypertension Additional Past Medical History / Comment(s): bladder issues, polycthemia, low testerone, heart murmur History of Any Multi-Drug Resistant Organisms: None Reported Past Surgical History: Tonsillectomy Additional Past Surgical History / Comment(s): Colonoscopies, bilateral cataract removals/lens implants, R mastoid surgery at age 4 yrs. Past Anesthesia/Blood Transfusion Reactions: No Reported Reaction Past Psychological History: No Psychological Hx Reported Smoking Status: Former smoker Past Alcohol Use History: None Reported Past Drug Use History: None Reported - Past Family History Father History Unknown: Yes Family Medical History: No Reported History Additional Family Medical History / Comment(s): Father was healthy and lived into his 90s. Mother History Unknown: Yes Medications and Allergies Home Medications Medication Instructions Recorded Confirmed Type Aspirin EC [Ecotrin Low Dose] 81 mg PO DAILY 12/10/21 12/10/21 History Multivitamins, Thera [Multivitamin 1 tab PO DAILY 12/10/21 12/10/21 History (formulary)] [place]-3/Dha/Epa/Fish Oil [Fish Oil 1 cap PO TID 12/10/21 12/10/21 History 1,000 mg Softgel] Oxybutynin Chloride [Ditropan] 5 mg PO TID 12/10/21 12/10/21 History Pravastatin Sodium [Pravachol] 40 mg PO HS 12/10/21 12/10/21 History Testosterone Cypionate 200 mg IM Q10D 12/10/21 12/10/21 History [Depo-Testosterone] lisinopriL 40 mg PO DAILY 12/10/21 12/10/21 History metFORMIN HCL [Glucophage] 500 mg PO BID 12/10/21 12/10/21 History Allergies Allergy/AdvReac Type Severity Reaction Status Date / Time No Known Allergies Allergy Verified 12/10/21 13:44 Physical Exam Vitals: Vital Signs Temp Pulse Pulse Resp BP BP Pulse Ox 12/11/21 11:30 105 H 21 103/60 92 L 12/11/21 11:00 96 16 102/63 93 L 12/11/21 10:30 96 19 117/55 93 L 12/11/21 10:00 103 H 14 106/71 94 L 12/11/21 09:30 94 12 103/56 93 L 12/11/21 09:00 96 12 104/61 96 12/11/21 08:30 96 10 L 104/58 94 L 12/11/21 08:00 98.1 F 95 17 110/64 95 12/11/21 07:30 94 26 H 88/60 94 L 12/11/21 07:00 101 H 21 102/55 95 07/06/22 06:30 96 14 99/53 94 L 12/11/21 06:00 99 9 L 117/60 93 L 12/11/21 05:30 101 H 12 89/61 94 L 12/11/21 05:00 96 3 L 98/51 92 L 12/11/21 04:30 99 21 94/53 94 L 12/11/21 04:00 98.3 F 95 12 94/48 93 L 12/11/21 03:30 95 12 90/55 94 L 12/11/21 03:00 96 5 L 89/53 93 L 12/11/21 02:45 98 14 97/54 93 L 12/11/21 02:30 121 H 14 97/54 86 L 12/11/21 02:15 100 7 L 98/53 95 12/11/21 02:02 98.2 F 92 14 99/52 94 L 12/11/21 02:00 98 5 L 99/52 96 12/11/21 01:45 99 23 98/56 96 12/11/21 01:30 105 H 25 H 95/53 94 L 12/11/21 01:15 101 H 4 L 93/46 93 L 12/11/21 01:00 99 5 L 93/46 93 L 12/11/21 00:45 105 H 7 L 98/50 94 L 12/11/21 00:30 106 H 14 119/99 97 12/11/21 00:15 104 H 5 L 98/56 89 L 12/11/21 00:00 104 H 12 98/56 95 12/10/21 23:58 97.7 F 104 H 14 98/56 94 L 12/10/21 23:45 105 H 6 L 100/66 94 L 12/10/21 23:30 112 H 9 L 96 12/10/21 23:29 32 H 12/10/21 23:28 98.2 F 109 H 14 124/61 94 L 12/10/21 23:18 98 F 103 H 14 91/52 93 L 12/10/21 20:00 97.5 F L 99 12 78/44 93 L 12/10/21 18:52 97.4 F L 73 16 86/49 99 12/10/21 18:30 86/53 12/10/21 18:24 98.2 F 82 16 100/67 100 12/10/21 18:15 93 13 95/53 100 12/10/21 18:00 92 22 72/52 100 12/10/21 17:45 96 17 102/61 99 12/10/21 17:30 97 5 L 89/55 100 12/10/21 17:15 103 H 24 98/48 99 12/10/21 17:00 92 8 L 100/67 100 12/10/21 16:45 96 32 H 83/47 100 12/10/21 16:43 98 15 83/47 100 12/10/21 16:00 98.1 F 98 18 87/57 99 12/10/21 15:00 92 18 70/58 97 12/10/21 14:53 90 18 70/58 98 12/10/21 14:00 93 18 86/44 98 12/10/21 13:00 101 H 16 83/57 100 12/10/21 12:30 96 18 93/56 96 12/10/21 12:00 96 22 76/44 97 Intake and Output 12/10/21 12/11/21 12/11/21 22:59 06:59 14:59 Intake Total 2070 400 Output Total 650 675 Balance 1420 -275 Intake: IV 225 0.9 225 Intake, IV Titration 1450 175 Amount Sodium Chloride 0.9% 1, 450 75 000 ml @ 75 mls/hr IV . [id number] ONE Rx#:[id number] Sodium Chloride 0.9% 1, 1000 000 ml @ 999 mls/hr IV . Q1H1M ONE Rx#:[id number] Sodium Ferric Gluconat- 100 Sucrose 125 mg In Sodium Chloride 0.9% 100 ml @ 100 mls/hr IVPB DAILY [facility] Rx#:[id number] Blood Product 620 Rc As-1 Unit 310 [id number] Output: Urine 650 675 Other: Voiding Method Toilet Toilet Toilet Urinal # Voids 2 1 # Bowel Movements 4 Weight 97.522 kg 101.5 kg Physical Exam: Revealed 76-year-old white male, in no distress Head: Atraumatic, normocephalic. HEENT:[Neck is supple.] [No neck masses.] [No thyromegaly.] [No JVD.] Chest: [Clear throughout, no crackles, no rhonchi, no wheezes.] Cardiac Exam: [Normal S1 and S2, no S3 gallop, no murmur.] Abdomen: [Soft, nontender, no megaly, no rebound, no guarding, normal bowel sounds.] Extremities: [No clubbing, no edema, no cyanosis.] Neurological Exam: [No focal neurologic deficit.] Alert oriented 3 Psychiatric: Normal mood, affect and normal mental status examination. Skin: No rashes. Results - Laboratory Findings CBC and BMP: 12/11/21 05:41 12/11/21 05:41 PT/INR, D-dimer PT 11.0 sec (9.0-12.0) 12/11/21 05:41 INR 1.0 (<1.2) 12/11/21 05:41 Abnormal lab findings: Abnormal Labs 12/10/21 12/10/21 12/10/21 10:50 10:50 10:50 RBC 3.83 L Hgb 8.8 L Hct 29.3 L MCV 76.3 L MCH 23.0 L MCHC 30.2 L RDW 18.6 H Neutrophils # (Manual) Monocytes # (Manual) 1.50 H Retic Count APTT Chloride Carbon Dioxide 19 L BUN 59 H Creatinine 3.30 H Glucose 154 H POC Glucose (mg/dL) Calcium Iron % Saturation Ferritin AST 15 L Lactate Dehydrogenase Total Protein 6.0 L Total Protein (PEP) Albumin Urine Ketones IgM Crossmatch See Detail 12/10/21 12/10/21 12/10/21 11:39 13:30 13:32 RBC 3.62 L Hgb 8.1 L Hct 27.7 L MCV 76.5 L MCH 22.4 L MCHC 29.3 L RDW 18.6 H Neutrophils # (Manual) 7.80 H Monocytes # (Manual) Retic Count 3.5 H APTT 18.9 L Chloride Carbon Dioxide BUN Creatinine Glucose POC Glucose (mg/dL) Calcium Iron % Saturation Ferritin AST Lactate Dehydrogenase Total Protein Total Protein (PEP) Albumin Urine Ketones IgM Crossmatch 12/10/21 12/10/21 12/10/21 15:26 15:26 15:26 RBC Hgb Hct MCV MCH MCHC RDW Neutrophils # (Manual) Monocytes # (Manual) Retic Count APTT Chloride Carbon Dioxide BUN Creatinine Glucose POC Glucose (mg/dL) Calcium Iron 12 L % Saturation 3.05 L Ferritin 15.4 L AST Lactate Dehydrogenase 253 L Total Protein Total Protein (PEP) 5.5 L Albumin Urine Ketones IgM 29.6 L Crossmatch 12/10/21 12/10/21 12/10/21 19:07 20:10 23:45 RBC 3.31 L Hgb 7.6 L Hct 25.7 L MCV 77.7 L MCH 23.1 L MCHC 29.7 L RDW 18.5 H Neutrophils # (Manual) Monocytes # (Manual) Retic Count APTT Chloride Carbon Dioxide BUN Creatinine Glucose POC Glucose (mg/dL) 131 H 118 H Calcium Iron % Saturation Ferritin AST Lactate Dehydrogenase Total Protein Total Protein (PEP) Albumin Urine Ketones IgM Crossmatch 12/11/21 12/11/21 12/11/21 05:41 05:41 07:45 RBC 3.08 L Hgb 7.3 L Hct 24.2 L MCV 78.6 L MCH 23.8 L MCHC 30.3 L RDW 19.0 H Neutrophils # (Manual) Monocytes # (Manual) Retic Count APTT Chloride 112 H Carbon Dioxide 19 L BUN 55 H Creatinine 2.11 H Glucose 108 H POC Glucose (mg/dL) Calcium 7.8 L Iron % Saturation Ferritin AST Lactate Dehydrogenase Total Protein 5.4 L Total Protein (PEP) Albumin 3.2 L Urine Ketones 1+ H IgM Crossmatch - Diagnostic Findings Additional studies: Renal ultrasound showed no evidence of obstructive uropathy. Assessment and Plan Assessment: Impression: Acute GI bleeding, etiology is unclear however workup is in progress, patient will likely require EGD and colonoscopy. Nonsteroidal anti-inflammatory drugs use History of polycythemia Acute kidney injury, diuretics, KYLE inhibitor and metformin are presently on hold Type 2 diabetes Benign essential hypertension Recommendation: Continue Protonix Hold nonsteroidal inflammatory drugs, hold KYLE inhibitor's and diuretics, hold metformin Nephrology to see on consultation Renal ultrasound was reviewed and there is no evidence of hydronephrosis GI or general surgery consultation Transfuse for any hemoglobin below 7 Agree with iron infusion Continue to monitor in the ICU for the next 24 hours. We will continue to follow. Time with Patient: Greater than 30
[2021-12-11 12:28] LABS: Anisocytosis Slight; HCT 25.9 % (39.0-53.0); HGB 7.6 gm/dL (13.0-17.5); Hypochromasia Marked; MCH 23.7 pg (25.0-35.0); MCHC 29.4 g/dL (31.0-37.0); MCV 80.8 fL (80.0-100.0); Mean Platelet Volume 7.2; Microcytosis Slight; Platelet Count 229 k/uL (150-450); Poikilocytosis Slight; RDW 19.1 % (11.5-15.5)
--- NOTE | 2021-12-11 12:45 | P.GSCN ---
History of Present Illness Consult date: 12/11/21 History of present illness: CHIEF COMPLAINT: GI bleed HISTORY OF PRESENT ILLNESS: This is a 76-year-old male who presented to the hospital with complaints of bright red blood per rectum for the last 4 days. Patient reports that he was having about 3 bloody stools a day. Denies any abdominal pain. Denies any nausea or vomiting. He was also started to pass blood without any stool. He's had GI bleeds in the past but has never had workup done. They resolve on their own. His last colonoscopy was 7 years ago and reports that he had some colon polyps. He does have a sister with a history of colon cancer. History he was transferred to the ICU from the third floor due to symptomatic GI bleed. He had had 3 bloody bowel movements and became hypotensive and tachycardic. He received a fluid bolus and 1 unit of blood. Hemoglobin on admission was 8.8 and did go down to 7.3. Repeat hemoglobin today was 7.6. Patient also reports taking high dose of Motrin over the last 3 weeks for dental work. PAST MEDICAL HISTORY: See list. PAST SURGICAL HISTORY: See list. MEDICATIONS: See list. ALLERGIES: See list. SOCIAL HISTORY: No illicit drug use. REVIEW OF SYSTEMS: CONSTITUTIONAL: Denies fever or chills. HEENT: Denies blurred vision, vision changes, or eye pain. Denies hemoptysis CARDIOVASCULAR: Denies chest pain or pressure. RESPIRATORY: No shortness of breath. GASTROINTESTINAL: See HPI for pertinent findings HEMATOLOGIC: Denies bleeding disorders. GENITOURINARY: Denies any blood in urine or increased urinary frequency. SKIN: Denies pruitis. Denies rash. PHYSICAL EXAM: VITAL SIGNS: Reviewed GENERAL: Well-developed in no acute distress. HEENT: No sclera icterus. Extraocular movements grossly intact. Moist buccal mucosa. Head is atraumatic, normocephalic. No nasal drainage. ABDOMEN: Soft. Nondistended. Nontender NEUROLOGIC: Alert and oriented. Cranial nerves II through XII grossly intact. LABORATORY DATA: WBC is 8 hemoglobin 7.6 platelets 229 sodium 139 potassium 4.9 creatinine 2.11 magnesium 2.0 LFTs normal urinalysis negative for infection IMAGING: Echo severe aortic stenosis. Mild mitral regurgitation EF 55%. ASSESSMENT: 1. Acute GI bleed with bright red blood per rectum 2. Acute blood loss anemia secondary to GI bleed 3. NSAID use PLAN: -Patient scheduled for EGD and colonoscopy tomorrow, 12/12/[address] tran -Start GoLYTELY prep -Nothing by mouth after midnight -Clear liquid diet today -Continue monitor hemoglobin -Continue monitor for any signs or symptoms of bleeding -No NSAIDS -Patient receiving IV iron Thank you for this consultation Physician Lab Pack Chemist note has been reviewed by physician. Signing provider agrees with the documented findings, assessment, and plan of care. Past Medical History Past Medical History: Blood Disorder, Diabetes Mellitus, Hyperlipidemia, Hypertension Additional Past Medical History / Comment(s): Past rectal bleeds, polycythemia, NIDDM, recently had lower 5 teeth extracted, R lower leg edema, heart murmur, DDD with occasional back pain. History of Any Multi-Drug Resistant Organisms: None Reported Past Surgical History: Tonsillectomy Additional Past Surgical History / Comment(s): Colonoscopies, bilateral cataract removals/lens implants, R mastoid surgery at age 4 yrs. Past Anesthesia/Blood Transfusion Reactions: No Reported Reaction Smoking Status: Former smoker - Past Family History Father History Unknown: Yes Family Medical History: No Reported History Additional Family Medical History / Comment(s): Father was healthy and lived into his 90s. Mother History Unknown: Yes Medications and Allergies Home Medications Medication Instructions Recorded Confirmed Type Aspirin EC [Ecotrin Low Dose] 81 mg PO DAILY 12/10/21 12/10/21 History Multivitamins, Thera [Multivitamin 1 tab PO DAILY 12/10/21 12/10/21 History (formulary)] [place]-3/Dha/Epa/Fish Oil [Fish Oil 1 cap PO TID 12/10/21 12/10/21 History 1,000 mg Softgel] Oxybutynin Chloride [Ditropan] 5 mg PO TID 12/10/21 12/10/21 History Pravastatin Sodium [Pravachol] 40 mg PO HS 12/10/21 12/10/21 History Testosterone Cypionate 200 mg IM Q10D 12/10/21 12/10/21 History [Depo-Testosterone] lisinopriL 40 mg PO DAILY 12/10/21 12/10/21 History metFORMIN HCL [Glucophage] 500 mg PO BID 12/10/21 12/10/21 History Allergies Allergy/AdvReac Type Severity Reaction Status Date / Time No Known Allergies Allergy Verified 12/10/21 13:44 Surgical - Exam Vital Signs Temp Pulse Resp BP Pulse Ox 98.2 F 112 H 18 106/49 99 12/10/21 10:28 12/10/21 10:28 12/10/21 10:28 12/10/21 10:28 12/10/21 10:28 Results - Labs 12/11/21 12:18 12/11/21 05:41 Abnormal Lab Results - Last 24 Hours (Table) 12/10/21 12/10/21 12/10/21 Range/Units 10:50 10:50 10:50 RBC 3.83 L (4.30-5.90) m/uL Hgb 8.8 L (13.0-17.5) gm/dL Hct 29.3 L (39.0-53.0) % MCV 76.3 L (80.0-100.0) fL MCH 23.0 L (25.0-35.0) pg MCHC 30.2 L (31.0-37.0) g/dL RDW 18.6 H (11.5-15.5) % Neutrophils # (Manual) (1.3-7.7) k/uL Monocytes # (Manual) 1.50 H (0-1.0) k/uL Retic Count (0.5-2.0) % APTT (22.0-30.0) sec Chloride (98-107) mmol/L Carbon Dioxide 19 L (22-30) mmol/L BUN 59 H (9-20) mg/dL Creatinine 3.30 H (0.66-1.25) mg/dL Glucose 154 H (74-99) mg/dL POC Glucose (mg/dL) (70-110) mg/dL Calcium (8.4-10.2) mg/dL Iron (65-175) ug/dL % Saturation (15.00-50.00) Ferritin (22.0-322.0) ng/mL AST 15 L (17-59) U/L Lactate Dehydrogenase (313-618) U/L Total Protein 6.0 L (6.3-8.2) g/dL Total Protein (PEP) (6.2-8.2) g/dL Albumin (3.5-5.0) g/dL Urine Ketones (Negative) IgM (40.0-280.0) mg/dL Crossmatch See Detail 12/10/21 12/10/21 12/10/21 Range/Units 11:39 13:30 13:32 RBC 3.62 L (4.30-5.90) m/uL Hgb 8.1 L (13.0-17.5) gm/dL Hct 27.7 L (39.0-53.0) % MCV 76.5 L (80.0-100.0) fL MCH 22.4 L (25.0-35.0) pg MCHC 29.3 L (31.0-37.0) g/dL RDW 18.6 H (11.5-15.5) % Neutrophils # (Manual) 7.80 H (1.3-7.7) k/uL Monocytes # (Manual) (0-1.0) k/uL Retic Count 3.5 H (0.5-2.0) % APTT 18.9 L (22.0-30.0) sec Chloride (98-107) mmol/L Carbon Dioxide (22-30) mmol/L BUN (9-20) mg/dL Creatinine (0.66-1.25) mg/dL Glucose (74-99) mg/dL POC Glucose (mg/dL) (70-110) mg/dL Calcium (8.4-10.2) mg/dL Iron (65-175) ug/dL % Saturation (15.00-50.00) Ferritin (22.0-322.0) ng/mL AST (17-59) U/L Lactate Dehydrogenase (313-618) U/L Total Protein (6.3-8.2) g/dL Total Protein (PEP) (6.2-8.2) g/dL Albumin (3.5-5.0) g/dL Urine Ketones (Negative) IgM (40.0-280.0) mg/dL Crossmatch 12/10/21 12/10/21 12/10/21 Range/Units 15:26 15:26 15:26 RBC (4.30-5.90) m/uL Hgb (13.0-17.5) gm/dL Hct (39.0-53.0) % MCV (80.0-100.0) fL MCH (25.0-35.0) pg MCHC (31.0-37.0) g/dL RDW (11.5-15.5) % Neutrophils # (Manual) (1.3-7.7) k/uL Monocytes # (Manual) (0-1.0) k/uL Retic Count (0.5-2.0) % APTT (22.0-30.0) sec Chloride (98-107) mmol/L Carbon Dioxide (22-30) mmol/L BUN (9-20) mg/dL Creatinine (0.66-1.25) mg/dL Glucose (74-99) mg/dL POC Glucose (mg/dL) (70-110) mg/dL Calcium (8.4-10.2) mg/dL Iron 12 L (65-175) ug/dL % Saturation 3.05 L (15.00-50.00) Ferritin 15.4 L (22.0-322.0) ng/mL AST (17-59) U/L Lactate Dehydrogenase 253 L (313-618) U/L Total Protein (6.3-8.2) g/dL Total Protein (PEP) 5.5 L (6.2-8.2) g/dL Albumin (3.5-5.0) g/dL Urine Ketones (Negative) IgM 29.6 L (40.0-280.0) mg/dL Crossmatch 12/10/21 12/10/21 12/10/21 Range/Units 19:07 20:10 23:45 RBC 3.31 L (4.30-5.90) m/uL Hgb 7.6 L (13.0-17.5) gm/dL Hct 25.7 L (39.0-53.0) % MCV 77.7 L (80.0-100.0) fL MCH 23.1 L (25.0-35.0) pg MCHC 29.7 L (31.0-37.0) g/dL RDW 18.5 H (11.5-15.5) % Neutrophils # (Manual) (1.3-7.7) k/uL Monocytes # (Manual) (0-1.0) k/uL Retic Count (0.5-2.0) % APTT (22.0-30.0) sec Chloride (98-107) mmol/L Carbon Dioxide (22-30) mmol/L BUN (9-20) mg/dL Creatinine (0.66-1.25) mg/dL Glucose (74-99) mg/dL POC Glucose (mg/dL) 131 H 118 H (70-110) mg/dL Calcium (8.4-10.2) mg/dL Iron (65-175) ug/dL % Saturation (15.00-50.00) Ferritin (22.0-322.0) ng/mL AST (17-59) U/L Lactate Dehydrogenase (313-618) U/L Total Protein (6.3-8.2) g/dL Total Protein (PEP) (6.2-8.2) g/dL Albumin (3.5-5.0) g/dL Urine Ketones (Negative) IgM (40.0-280.0) mg/dL Crossmatch 12/11/21 12/11/21 12/11/21 Range/Units 05:41 05:41 07:45 RBC 3.08 L (4.30-5.90) m/uL Hgb 7.3 L (13.0-17.5) gm/dL Hct 24.2 L (39.0-53.0) % MCV 78.6 L (80.0-100.0) fL MCH 23.8 L (25.0-35.0) pg MCHC 30.3 L (31.0-37.0) g/dL RDW 19.0 H (11.5-15.5) % Neutrophils # (Manual) (1.3-7.7) k/uL Monocytes # (Manual) (0-1.0) k/uL Retic Count (0.5-2.0) % APTT (22.0-30.0) sec Chloride 112 H (98-107) mmol/L Carbon Dioxide 19 L (22-30) mmol/L BUN 55 H (9-20) mg/dL Creatinine 2.11 H (0.66-1.25) mg/dL Glucose 108 H (74-99) mg/dL POC Glucose (mg/dL) (70-110) mg/dL Calcium 7.8 L (8.4-10.2) mg/dL Iron (65-175) ug/dL % Saturation (15.00-50.00) Ferritin (22.0-322.0) ng/mL AST (17-59) U/L Lactate Dehydrogenase (313-618) U/L Total Protein 5.4 L (6.3-8.2) g/dL Total Protein (PEP) (6.2-8.2) g/dL Albumin 3.2 L (3.5-5.0) g/dL Urine Ketones 1+ H (Negative) IgM (40.0-280.0) mg/dL Crossmatch Diabetes panel 12/10/21 12/11/21 Range/Units 10:50 05:41 Sodium 138 139 (137-145) mmol/L Potassium 4.8 4.9 (3.5-5.1) mmol/L Chloride 106 112 H (98-107) mmol/L Carbon Dioxide 19 L 19 L (22-30) mmol/L BUN 59 H 55 H (9-20) mg/dL Creatinine 3.30 H 2.11 H (0.66-1.25) mg/dL Glucose 154 H 108 H (74-99) mg/dL Calcium 8.7 7.8 L (8.4-10.2) mg/dL AST 15 L 18 (17-59) U/L ALT 12 9 (4-49) U/L Alkaline Phosphatase 61 53 (38-126) U/L Total Protein 6.0 L 5.4 L (6.3-8.2) g/dL Albumin 3.6 3.2 L (3.5-5.0) g/dL Calcium panel 12/10/21 12/11/21 Range/Units 10:50 05:41 Calcium 8.7 7.8 L (8.4-10.2) mg/dL Albumin 3.6 3.2 L (3.5-5.0) g/dL Pituitary panel 12/10/21 12/11/21 Range/Units 10:50 05:41 Sodium 138 139 (137-145) mmol/L Potassium 4.8 4.9 (3.5-5.1) mmol/L Chloride 106 112 H (98-107) mmol/L Carbon Dioxide 19 L 19 L (22-30) mmol/L BUN 59 H 55 H (9-20) mg/dL Creatinine 3.30 H 2.11 H (0.66-1.25) mg/dL Glucose 154 H 108 H (74-99) mg/dL Calcium 8.7 7.8 L (8.4-10.2) mg/dL Adrenal panel 12/10/21 12/11/21 Range/Units 10:50 05:41 Sodium 138 139 (137-145) mmol/L Potassium 4.8 4.9 (3.5-5.1) mmol/L Chloride 106 112 H (98-107) mmol/L Carbon Dioxide 19 L 19 L (22-30) mmol/L BUN 59 H 55 H (9-20) mg/dL Creatinine 3.30 H 2.11 H (0.66-1.25) mg/dL Glucose 154 H 108 H (74-99) mg/dL Calcium 8.7 7.8 L (8.4-10.2) mg/dL Total Bilirubin 0.6 0.8 (0.2-1.3) mg/dL AST 15 L 18 (17-59) U/L ALT 12 9 (4-49) U/L Alkaline Phosphatase 61 53 (38-126) U/L Total Protein 6.0 L 5.4 L (6.3-8.2) g/dL Albumin 3.6 3.2 L (3.5-5.0) g/dL
--- NOTE | 2021-12-11 12:57 | P.PN ---
Subjective Progress Note Date: 12/11/21 (delayed charting seen at 11am) Patient is a 76-year-old male patient of Dr. Rosa with diabetes, hypertension, and dyslipidemia who presented to the ER with complaints of bright red blood per rectum. In the ER he underwent extensive evaluation. On arrival he was tachycardic with a pulse of 112. His blood pressure got as low as 66/42. He was given 1 L bolus. Laboratory analysis showed hemoglobin of 8.8, BUN 59, creatinine 3.3. PT/INR was normal. Arrangements are made for admission. Surgery and nephrology were consulted. He continued to have bleeding and required a unit of blood. He was noted to have a significant murmur and echo was ordered which showed severe aortic stenosis. Patient seen and examined at bedside. He has not had any bowel movement since last night at 10 pm. He denies any abdominal pain and reports he is hungry. Denies chest pain, shortness of breath, lightheadedness, dizziness. General: nontoxic, no distress, appears at stated age Derm: warm, dry Head: atraumatic, normocephalic, symmetric Eyes: EOMI, no lid lag, anicteric sclera Mouth: no lip lesion, mucus membranes moist Cardiovascular: S1S2 reg with grade 4 systolic ejection murmur, positive posterior tibial pulse bilateral, Lungs: CTA bilateral, no rhonchi, no rales , no accessory muscle use Abdominal: soft, nontender to palpation, no guarding, no appreciable organomegaly Ext: no gross muscle atrophy, no edema, no contractures Neuro: CN II-XI grossly intact, no focal neuro deficits Psych: Alert, oriented, appropriate affect Assessment/Plan: Acute GI bleed s/p 2 units pRBC Acute blood loss anemia with history of polycythemia, iron deficiency anemia NSAID use -IV fluids -Serial hemoglobins -Transfuse for hemoglobin less than 8 -Follow frequent vital signs -Surgery consult pending -Heme/onc recs appreacited -Nothing by mouth except ice chips - IV PPI Acute kidney injury Metabolic acidosis - hold ACEI, hold metformin -Check renal ultrasound without abnormlaities -IV fluids gentle in the setting of lower extremity edema -Nephrology recs apprecaited - avoid additional nephrotoxic agents Severe aortic stenosis, LVH - consult cardio DM 2 - hold oral - SSI - follow BS Hypertension - hold meds due to bordeline BP - follow BP Objective - Vital Signs Vital signs: Vital Signs Temp 97.9 F 12/11/21 12:00 Pulse 98 12/11/21 12:00 Resp 20 12/11/21 12:00 BP 107/66 12/11/21 12:00 Pulse Ox 94 L 12/11/21 12:00 FiO2 Intake & Output 12/10/21 12/11/21 12/11/21 18:59 06:59 18:59 Intake Total 2070 450 Output Total 650 775 Balance 1420 -325 Weight 97.522 kg 101.5 kg Intake: IV 275 0.9 275 Intake, IV Titration 1450 175 Amount Sodium Chloride 0.9% 1, 450 75 000 ml @ 75 mls/hr IV . [id number] ONE Rx#:[id number] Sodium Chloride 0.9% 1, 1000 000 ml @ 999 mls/hr IV . Q1H1M [facility] Rx#:[id number] Sodium Ferric Gluconat- 100 Sucrose 125 mg In Sodium Chloride 0.9% 100 ml @ 100 mls/hr IVPB DAILY [facility] Rx#:[id number] Blood Product 620 Rc As-1 Unit 310 [id number] Output: Urine 650 775 Other: Voiding Method Toilet Toilet Urinal # Voids 2 1 # Bowel Movements 4 - Labs CBC & Chem 7: 12/11/21 12:18 12/11/21 05:41 Labs: Abnormal Lab Results - Last 24 Hours (Table) 12/10/21 12/10/21 12/10/21 Range/Units 10:50 13:30 13:32 RBC 3.62 L (4.30-5.90) m/uL Hgb 8.1 L (13.0-17.5) gm/dL Hct 27.7 L (39.0-53.0) % MCV 76.5 L (80.0-100.0) fL MCH 22.4 L (25.0-35.0) pg MCHC 29.3 L (31.0-37.0) g/dL RDW 18.6 H (11.5-15.5) % Neutrophils # (Manual) 7.80 H (1.3-7.7) k/uL Retic Count 3.5 H (0.5-2.0) % Chloride (98-107) mmol/L Carbon Dioxide (22-30) mmol/L BUN (9-20) mg/dL Creatinine (0.66-1.25) mg/dL Glucose (74-99) mg/dL POC Glucose (mg/dL) (70-110) mg/dL Calcium (8.4-10.2) mg/dL Iron (65-175) ug/dL % Saturation (15.00-50.00) Ferritin (22.0-322.0) ng/mL Lactate Dehydrogenase (313-618) U/L Total Protein (6.3-8.2) g/dL Total Protein (PEP) (6.2-8.2) g/dL Albumin (3.5-5.0) g/dL Urine Ketones (Negative) IgM (40.0-280.0) mg/dL Crossmatch See Detail 12/10/21 12/10/21 12/10/21 Range/Units 15:26 15:26 15:26 RBC (4.30-5.90) m/uL Hgb (13.0-17.5) gm/dL Hct (39.0-53.0) % MCV (80.0-100.0) fL MCH (25.0-35.0) pg MCHC (31.0-37.0) g/dL RDW (11.5-15.5) % Neutrophils # (Manual) (1.3-7.7) k/uL Retic Count (0.5-2.0) % Chloride (98-107) mmol/L Carbon Dioxide (22-30) mmol/L BUN (9-20) mg/dL Creatinine (0.66-1.25) mg/dL Glucose (74-99) mg/dL POC Glucose (mg/dL) (70-110) mg/dL Calcium (8.4-10.2) mg/dL Iron 12 L (65-175) ug/dL % Saturation 3.05 L (15.00-50.00) Ferritin 15.4 L (22.0-322.0) ng/mL Lactate Dehydrogenase 253 L (313-618) U/L Total Protein (6.3-8.2) g/dL Total Protein (PEP) 5.5 L (6.2-8.2) g/dL Albumin (3.5-5.0) g/dL Urine Ketones (Negative) IgM 29.6 L (40.0-280.0) mg/dL Crossmatch 12/10/21 12/10/21 12/10/21 Range/Units 19:07 20:10 23:45 RBC 3.31 L (4.30-5.90) m/uL Hgb 7.6 L (13.0-17.5) gm/dL Hct 25.7 L (39.0-53.0) % MCV 77.7 L (80.0-100.0) fL MCH 23.1 L (25.0-35.0) pg MCHC 29.7 L (31.0-37.0) g/dL RDW 18.5 H (11.5-15.5) % Neutrophils # (Manual) (1.3-7.7) k/uL Retic Count (0.5-2.0) % Chloride (98-107) mmol/L Carbon Dioxide (22-30) mmol/L BUN (9-20) mg/dL Creatinine (0.66-1.25) mg/dL Glucose (74-99) mg/dL POC Glucose (mg/dL) 131 H 118 H (70-110) mg/dL Calcium (8.4-10.2) mg/dL Iron (65-175) ug/dL % Saturation (15.00-50.00) Ferritin (22.0-322.0) ng/mL Lactate Dehydrogenase (313-618) U/L Total Protein (6.3-8.2) g/dL Total Protein (PEP) (6.2-8.2) g/dL Albumin (3.5-5.0) g/dL Urine Ketones (Negative) IgM (40.0-280.0) mg/dL Crossmatch 12/11/21 12/11/21 12/11/21 Range/Units 05:41 05:41 07:45 RBC 3.08 L (4.30-5.90) m/uL Hgb 7.3 L (13.0-17.5) gm/dL Hct 24.2 L (39.0-53.0) % MCV 78.6 L (80.0-100.0) fL MCH 23.8 L (25.0-35.0) pg MCHC 30.3 L (31.0-37.0) g/dL RDW 19.0 H (11.5-15.5) % Neutrophils # (Manual) (1.3-7.7) k/uL Retic Count (0.5-2.0) % Chloride 112 H (98-107) mmol/L Carbon Dioxide 19 L (22-30) mmol/L BUN 55 H (9-20) mg/dL Creatinine 2.11 H (0.66-1.25) mg/dL Glucose 108 H (74-99) mg/dL POC Glucose (mg/dL) (70-110) mg/dL Calcium 7.8 L (8.4-10.2) mg/dL Iron (65-175) ug/dL % Saturation (15.00-50.00) Ferritin (22.0-322.0) ng/mL Lactate Dehydrogenase (313-618) U/L Total Protein 5.4 L (6.3-8.2) g/dL Total Protein (PEP) (6.2-8.2) g/dL Albumin 3.2 L (3.5-5.0) g/dL Urine Ketones 1+ H (Negative) IgM (40.0-280.0) mg/dL Crossmatch 12/11/21 Range/Units 12:18 RBC 3.20 L (4.30-5.90) m/uL Hgb 7.6 L (13.0-17.5) gm/dL Hct 25.9 L (39.0-53.0) % MCV (80.0-100.0) fL MCH 23.7 L (25.0-35.0) pg MCHC 29.4 L (31.0-37.0) g/dL RDW 19.1 H (11.5-15.5) % Neutrophils # (Manual) (1.3-7.7) k/uL Retic Count (0.5-2.0) % Chloride (98-107) mmol/L Carbon Dioxide (22-30) mmol/L BUN (9-20) mg/dL Creatinine (0.66-1.25) mg/dL Glucose (74-99) mg/dL POC Glucose (mg/dL) (70-110) mg/dL Calcium (8.4-10.2) mg/dL Iron (65-175) ug/dL % Saturation (15.00-50.00) Ferritin (22.0-322.0) ng/mL Lactate Dehydrogenase (313-618) U/L Total Protein (6.3-8.2) g/dL Total Protein (PEP) (6.2-8.2) g/dL Albumin (3.5-5.0) g/dL Urine Ketones (Negative) IgM (40.0-280.0) mg/dL Crossmatch
[2021-12-11 15:47] LABS: Free Kappa Lt Chain Qnt, Serum 10.79 mg/dL (0.33-1.94); Free Lambda Lt Chain Qnt, Seru 5.15 mg/dL (0.57-2.63)
[2021-12-11 15:55] LABS: Glucose,Whole Blood 113 mg/dL (70-110)
--- NOTE | 2021-12-11 18:58 | P.PN ---
Subjective Progress Note Date: 12/11/21 Principal diagnosis: GI Bleed at bedside, colonoscopy and EGD planned for morning, he is drinking prep. THey are not sure if he ever had the genetic testing or JAK2 on diagnosis, He received PRBC today and Parental Iron. Objective - Vital Signs Vital signs: Vital Signs Temp 98.9 F 12/11/21 16:35 Pulse 92 12/11/21 18:00 Resp 12 12/11/21 18:00 BP 104/49 12/11/21 18:00 Pulse Ox 95 12/11/21 18:00 FiO2 Intake & Output 12/10/21 12/11/21 12/11/21 18:59 06:59 18:59 Intake Total 2070 2330 Output Total 650 775 Balance 1420 1555 Weight 97.522 kg 101.5 kg Intake: IV 575 0.9 575 Intake, IV Titration 1450 175 Amount Sodium Chloride 0.9% 1, 450 75 000 ml @ 75 mls/hr IV . [id number] ONE Rx#:[id number] Sodium Chloride 0.9% 1, 1000 000 ml @ 999 mls/hr IV . Q1H1M ONE Rx#:[id number] Sodium Ferric Gluconat- 100 Sucrose 125 mg In Sodium Chloride 0.9% 100 ml @ 100 mls/hr IVPB DAILY [facility] Rx#:[id number] Oral 960 Blood Product 620 620 Rc As-1 Unit 310 [id number] Rc As-1 Unit 310 [id number] Output: Urine 650 775 Other: Voiding Method Toilet Toilet Urinal # Voids 2 1 # Bowel Movements 4 2 - Exam Darkened grayish skin Alert NAD Abdomen dis, soft HR Irr - Labs CBC & Chem 7: 12/11/21 12:18 12/11/21 05:41 Labs: Abnormal Lab Results - Last 24 Hours (Table) 12/10/21 12/10/21 12/10/21 Range/Units 10:50 15:26 15:26 RBC (4.30-5.90) m/uL Hgb (13.0-17.5) gm/dL Hct (39.0-53.0) % MCV (80.0-100.0) fL MCH (25.0-35.0) pg MCHC (31.0-37.0) g/dL RDW (11.5-15.5) % Chloride (98-107) mmol/L Carbon Dioxide (22-30) mmol/L BUN (9-20) mg/dL Creatinine (0.66-1.25) mg/dL Glucose (74-99) mg/dL POC Glucose (mg/dL) (70-110) mg/dL Calcium (8.4-10.2) mg/dL Iron 12 L (65-175) ug/dL % Saturation 3.05 L (15.00-50.00) Ferritin 15.4 L (22.0-322.0) ng/mL Total Protein (6.3-8.2) g/dL Total Protein (PEP) 5.5 L (6.2-8.2) g/dL Albumin (3.5-5.0) g/dL Albumin (PEP) 3.20 L (3.80-4.90) g/dL Urine Ketones (Negative) IgM (40.0-280.0) mg/dL Free [place] LC, Quant 10.79 H (0.33-1.94) mg/dL Free [place] LC, Quant 5.15 H (0.57-2.63) mg/dL Crossmatch See Detail 12/10/21 12/10/21 12/10/21 Range/Units 15:26 19:07 20:10 RBC 3.31 L (4.30-5.90) m/uL Hgb 7.6 L (13.0-17.5) gm/dL Hct 25.7 L (39.0-53.0) % MCV 77.7 L (80.0-100.0) fL MCH 23.1 L (25.0-35.0) pg MCHC 29.7 L (31.0-37.0) g/dL RDW 18.5 H (11.5-15.5) % Chloride (98-107) mmol/L Carbon Dioxide (22-30) mmol/L BUN (9-20) mg/dL Creatinine (0.66-1.25) mg/dL Glucose (74-99) mg/dL POC Glucose (mg/dL) 131 H (70-110) mg/dL Calcium (8.4-10.2) mg/dL Iron (65-175) ug/dL % Saturation (15.00-50.00) Ferritin (22.0-322.0) ng/mL Total Protein (6.3-8.2) g/dL Total Protein (PEP) (6.2-8.2) g/dL Albumin (3.5-5.0) g/dL Albumin (PEP) (3.80-4.90) g/dL Urine Ketones (Negative) IgM 29.6 L (40.0-280.0) mg/dL Free [place] LC, Quant (0.33-1.94) mg/dL Free [place] LC, Quant (0.57-2.63) mg/dL Crossmatch 12/10/21 12/11/21 12/11/21 Range/Units 23:45 05:41 05:41 RBC 3.08 L (4.30-5.90) m/uL Hgb 7.3 L (13.0-17.5) gm/dL Hct 24.2 L (39.0-53.0) % MCV 78.6 L (80.0-100.0) fL MCH 23.8 L (25.0-35.0) pg MCHC 30.3 L (31.0-37.0) g/dL RDW 19.0 H (11.5-15.5) % Chloride 112 H (98-107) mmol/L Carbon Dioxide 19 L (22-30) mmol/L BUN 55 H (9-20) mg/dL Creatinine 2.11 H (0.66-1.25) mg/dL Glucose 108 H (74-99) mg/dL POC Glucose (mg/dL) 118 H (70-110) mg/dL Calcium 7.8 L (8.4-10.2) mg/dL Iron (65-175) ug/dL % Saturation (15.00-50.00) Ferritin (22.0-322.0) ng/mL Total Protein 5.4 L (6.3-8.2) g/dL Total Protein (PEP) (6.2-8.2) g/dL Albumin 3.2 L (3.5-5.0) g/dL Albumin (PEP) (3.80-4.90) g/dL Urine Ketones (Negative) IgM (40.0-280.0) mg/dL Free [place] LC, Quant (0.33-1.94) mg/dL Free [place] LC, Quant (0.57-2.63) mg/dL Crossmatch 12/11/21 12/11/21 12/11/21 Range/Units 07:45 12:18 15:54 RBC 3.20 L (4.30-5.90) m/uL Hgb 7.6 L (13.0-17.5) gm/dL Hct 25.9 L (39.0-53.0) % MCV (80.0-100.0) fL MCH 23.7 L (25.0-35.0) pg MCHC 29.4 L (31.0-37.0) g/dL RDW 19.1 H (11.5-15.5) % Chloride (98-107) mmol/L Carbon Dioxide (22-30) mmol/L BUN (9-20) mg/dL Creatinine (0.66-1.25) mg/dL Glucose (74-99) mg/dL POC Glucose (mg/dL) 113 H (70-110) mg/dL Calcium (8.4-10.2) mg/dL Iron (65-175) ug/dL % Saturation (15.00-50.00) Ferritin (22.0-322.0) ng/mL Total Protein (6.3-8.2) g/dL Total Protein (PEP) (6.2-8.2) g/dL Albumin (3.5-5.0) g/dL Albumin (PEP) (3.80-4.90) g/dL Urine Ketones 1+ H (Negative) IgM (40.0-280.0) mg/dL Free [place] LC, Quant (0.33-1.94) mg/dL Free [place] LC, Quant (0.57-2.63) mg/dL Crossmatch Assessment and Plan (1) Polycythemia vera Narrative/Plan: - last required phlebotomy 11/13/21 hemoglobin was 16.7 - Hold phlebotomies at this time. - Unknown JAK2 status Current Visit: Yes Status: Acute Code(s): D45 - POLYCYTHEMIA VERA SNOMED Code(s): 761877842 (2) Acute renal failure Narrative/Plan: - New finding and nephrology following Current Visit: Yes Status: Acute Code(s): N17.9 - ACUTE KIDNEY FAILURE, UNSPECIFIED SNOMED Code(s): 74532915 (3) Anemia Narrative/Plan: Severe 50% loss of blood GI evaluation is recommended jacinda to assess for underlying cause of bleed Hold AC, ASA Evidence of IRon deficiency with active bleed Parental Iron ordered COntinue to transfuse PRBC B12 low norm, supplemented Current Visit: Yes Status: Acute Code(s): D64.9 - ANEMIA, UNSPECIFIED SNOMED Code(s): 079525501 (4) GI bleed Current Visit: Yes Status: Acute Code(s): K92.2 - GASTROINTESTINAL HEMORRHAGE, UNSPECIFIED SNOMED Code(s): 79699839
[2021-12-11 19:53] LABS: Anisocytosis Slight; HCT 26.4 % (39.0-53.0); HGB 8.2 gm/dL (13.0-17.5); Hypochromasia Marked; MCH 25.3 pg (25.0-35.0); MCHC 31.2 g/dL (31.0-37.0); MCV 81.1 fL (80.0-100.0); Mean Platelet Volume 7.4; Microcytosis Slight; Platelet Count 251 k/uL (150-450); Poikilocytosis Moderate; RBC 3.25 m/uL (4.30-5.90); RDW 19.2 % (11.5-15.5); WBC 10.1 k/uL (3.8-10.6)
[2021-12-11] MEDS: PRAVASTATIN SODIUM 40 MG TAB PO SCH (21:46)
[2021-12-11] MEDS: CYANOCOBALAMIN 1,000 MCG/ML 1 ML VIAL IM SCH (21:47)
[2021-12-12] MEDS: SODIUM CHLORIDE 0.9% 1,000 ML IV SCH (06:48)
[2021-12-12 07:12] LABS: Anisocytosis Slight; HCT 23.9 % (39.0-53.0); HGB 7.3 gm/dL (13.0-17.5); Hypochromasia Marked; MCHC 30.6 g/dL (31.0-37.0); MCV 81.7 fL (80.0-100.0); Mean Platelet Volume 7.7; Microcytosis Slight; Platelet Count 219 k/uL (150-450); Poikilocytosis Moderate; RBC 2.93 m/uL (4.30-5.90); RDW 19.6 % (11.5-15.5); WBC 7.3 k/uL (3.8-10.6)
[2021-12-12 07:23] LABS: Potassium 4.8 mmol/L (3.5-5.1)
--- NOTE | 2021-12-12 08:01 | P.CRDCN ---
History of Present Illness History of present illness: HISTORY OF PRESENTING ILLNESS Patient is a pleasant 76-year-old male with history of diabetes mellitus type 2 hypertension hyperlipidemia documentation of prior polycythemia and recent GI bl eed as well as acute kidney injury and aortic stenosis who presents secondary to GI bleed. He started noticing blood in the stool 2 days prior to arrival and continued to have bleeding with bright red blood and clots as well as diarrhea and therefore presented to the ER. He denies any abdominal pain, fevers, chills. He denies being lightheaded however blood pressure on presentation 66/42 with acute kidney injury with creatinine up to 3.3. He does have a history of polycythemia and sees Dr. barcenas in hemoglobin normally more in the 14- 15 range. He has been taking some NSAIDs for tooth pain. He is also been taking a baby aspirin however this was stopped on arrival. His bleeding has been somewhat better over last 24 hours per patient and hemoglobin has stabilized. He does have a prior history of smoking however quit a while ago, no alcohol and no illicit drugs no family history of CAD. Echo 12/10/2021 shows peak gradient 5.2 m/s with a mean gradient of 67 and severe aortic stenosis. He states he has not been very active and normal if he goes a grocery store he will use an electric scooter. He blames this mainly on his joint pains. He denies any actual dyspnea however does not do much. He did have a syncopal episode a few years ago however denies much lightheadedness. His blood pressure was initially 66 systolic and denied feeling lightheaded at this time however 2 and appears fairly stoic. Denies any chest pain or pressure. He does have lower extremity edema which he blames on his diabetes usually fairly mild. REVIEW OF SYSTEMS At the time of my exam: CONSTITUTIONAL: Denies fever or chills. CARDIOVASCULAR: Denies chest pain, +shortness of breath, no orthopnea, PND or palpitations. RESPIRATORY: Denies cough. GASTROINTESTINAL: Denies abdominal pain, diarrhea, constipation, nausea or vomiting. MUSCULOSKELETAL: Denies myalgias. NEUROLOGIC: Denies numbness, tingling or weakness. ENDOCRINE: Denies fatigue, weight change, polydipsia or polyurina. GENITOURINARY: Denies burning, hematuria or urgency with micturation. HEMATOLOGIC: Denies history of anemia or bleeding. PHYSICAL EXAMINATION Vital signs reviewed. CONSTITUTIONAL: No apparent distress. HEENT: Head is normocephalic. Pupils are equal, round. Sclerae anicteric. Mucous membranes of the mouth are moist. No JVD. No carotid bruit. CHEST EXAMINATION: Lungs are clear to auscultation. No chest wall tenderness is noted on palpation or with deep breathing. HEART EXAMINATION: Regular rate and rhythm. S1, S2 heard. +4/6 systolic murmur, no gallops or rub. ABDOMEN: Soft, nontender. Positive bowel sounds. EXTREMITIES: 2+ peripheral pulses, no lower extremity edema and no calf tenderness. NEUROLOGIC EXAMINATION: Patient is awake, alert and oriented x3. ASSESSMENT 1. Critical aortic stenosis 2. Acute GI bleed appears to be improving 3. Acute kidney injury improving 4. Chronic diastolic heart failure, mild lower extremity edema appears stable 5. History of polycythemia 6. Debility not very active 7. Diabetes mellitus type 2 PLAN Echocardiogram reviewed with critical aortic stenosis. He states he has not been having much symptoms however likely exacerbating his hypotension and appear s somewhat stoic not saying he had any symptoms when his systolic blood pressures in the 60s. Given critical aortic stenosis discussed recommendations for aortic valve replacement. Also appears he does have some degree of diastolic heart failure with recent lower extremity edema and his prior syncopal episode have also been related to his aortic stenosis. Stabilize hemoglobin and then we will perform TAVR workup in the next few weeks. Hold antihypertensive medications for now. Patient is at elevated risk for EGD, colonoscopy however benefits appear to outweigh the risks and he is cleared. Past Medical History Past Medical History: Blood Disorder, Diabetes Mellitus, Hyperlipidemia, Hypertension Additional Past Medical History / Comment(s): Past rectal bleeds, polycythemia, NIDDM, recently had lower 5 teeth extracted, R lower leg edema, heart murmur, DDD with occasional back pain. History of Any Multi-Drug Resistant Organisms: None Reported Past Surgical History: Tonsillectomy Additional Past Surgical History / Comment(s): Colonoscopies, bilateral cataract removals/lens implants, R mastoid surgery at age 4 yrs. Past Anesthesia/Blood Transfusion Reactions: No Reported Reaction Smoking Status: Former smoker - Past Family History Father History Unknown: Yes Family Medical History: No Reported History Additional Family Medical History / Comment(s): Father was healthy and lived int o his 90s. Mother History Unknown: Yes Medications and Allergies Home Medications Medication Instructions Recorded Confirmed Type Aspirin EC [Ecotrin Low Dose] 81 mg PO DAILY 12/10/21 12/10/21 History Multivitamins, Thera [Multivitamin 1 tab PO DAILY 12/10/21 12/10/21 History (formulary)] Reva-3/Dha/Epa/Fish Oil [Fish Oil 1 cap PO TID 12/10/21 12/10/21 History 1,000 mg Softgel] Oxybutynin Chloride [Ditropan] 5 mg PO TID 12/10/21 12/10/21 History Pravastatin Sodium [Pravachol] 40 mg PO HS 12/10/21 12/10/21 History Testosterone Cypionate 200 mg IM Q10D 12/10/21 12/10/21 History [Depo-Testosterone] lisinopriL 40 mg PO DAILY 12/10/21 12/10/21 History metFORMIN HCL [Glucophage] 500 mg PO BID 12/10/21 12/10/21 History Allergies Allergy/AdvReac Type Severity Reaction Status Date / Time No Known Allergies Allergy Verified 12/10/21 13:44 Physical Exam Vitals: Vital Signs Temp Pulse Resp BP Pulse Ox 12/12/21 07:30 91 5 L 79/50 93 L 12/12/21 07:00 89 5 L 88/47 96 12/12/21 06:30 87 11 L 100/56 93 L 12/12/21 06:00 86 28 H 108/50 93 L 12/12/21 05:30 88 13 95/50 92 L 12/12/21 05:00 89 14 88/47 93 L 12/12/21 04:30 81 10 L 97/50 93 L 12/12/21 04:00 98.4 F 89 22 111/53 93 L 12/12/21 03:30 88 12 110/36 93 L 12/12/21 03:00 86 12 98/54 96 12/12/21 02:30 80 13 85/47 94 L 12/12/21 02:00 89 12 103/51 96 12/12/21 01:30 87 15 114/45 97 12/12/21 01:00 98.2 F 99 16 110/58 12/12/21 00:30 92 15 88/53 93 L 12/12/21 00:06 92 11 L 88/53 93 L 12/12/21 00:00 91 14 95/55 93 L 12/11/21 23:30 93 12 84/55 92 L 12/11/21 23:00 95 15 84/55 12/11/21 22:30 96 18 104/40 94 L 12/11/21 22:00 99 12 103/50 12/11/21 21:30 94 30 H 89/62 95 12/11/21 21:00 92 15 92/49 96 12/11/21 20:30 105 H 21 93/66 12/11/21 20:00 110/25 12/11/21 19:30 89 12 99/50 98 12/11/21 19:00 92 12 87/62 95 12/11/21 18:30 100 12 104/49 96 12/11/21 18:00 92 12 104/49 95 12/11/21 17:30 99 11 L 12/11/21 17:00 101 H 14 12/11/21 16:35 98.9 F 90 14 116/59 97 12/11/21 16:30 101 H 18 116/59 12/11/21 16:00 98.9 F 90 13 116/59 96 12/11/21 15:30 93 12 121/59 96 12/11/21 15:00 93 12 81/55 94 L 12/11/21 14:44 98.9 F 96 14 107/58 95 12/11/21 14:30 96 14 96/55 95 12/11/21 14:14 98.6 F 89 12 96/55 94 L 12/11/21 14:04 99.1 F 92 12 77/60 95 12/11/21 14:00 101 H 16 96/57 96 12/11/21 13:30 99.0 F 90 9 L 96/57 94 L 12/11/21 13:00 100 12 97/59 93 L 12/11/21 12:30 93 16 97/59 92 L 12/11/21 12:00 97.9 F 98 20 107/66 94 L 12/11/21 11:30 105 H 21 103/60 92 L 12/11/21 11:00 96 16 102/63 93 L 12/11/21 10:30 96 19 117/55 93 L 12/11/21 10:00 103 H 14 106/71 94 L 12/11/21 09:30 94 12 103/56 93 L 12/11/21 09:00 96 12 104/61 96 12/11/21 08:30 96 10 L 104/58 94 L 12/11/21 08:00 98.1 F 95 17 110/64 95 Intake and Output 12/11/21 12/12/21 12/12/21 22:59 06:59 14:59 Intake Total 2100 520 50 Output Total 400 400 200 Balance 1700 120 -150 Intake: IV 400 400 50 0.9 400 400 50 Oral 1080 120 Blood Product 620 Rc As-1 Unit 310 [id number] Output: Urine 400 400 200 Other: Voiding Method Toilet Toilet Urinal Urinal # Voids 1 # Bowel Movements 1 Weight 99 kg Results 12/12/21 06:36 12/12/21 06:36 CBC 12/11/21 12/11/21 12/12/21 Range/Units 12:18 19:46 06:36 WBC 8.0 10.1 7.3 (3.8-10.6) k/uL RBC 3.20 L 3.25 L 2.93 L (4.30-5.90) m/uL Hgb 7.6 L 8.2 L 7.3 L (13.0-17.5) gm/dL Hct 25.9 L 26.4 L 23.9 L (39.0-53.0) % Plt Count 229 251 219 (150-450) k/uL Comprehensive Metabolic Panel 12/12/21 Range/Units 06:36 Sodium 139 (137-145) mmol/L Potassium 4.8 (3.5-5.1) mmol/L Chloride 109 H (98-107) mmol/L Carbon Dioxide 23 (22-30) mmol/L BUN 36 H (9-20) mg/dL Creatinine 1.38 H (0.66-1.25) mg/dL Glucose 107 H (74-99) mg/dL Calcium 8.0 L (8.4-10.2) mg/dL Current Medications Generic Name Dose Route Start Last Admin Trade Name Freq PRN Reason Stop Dose Admin Acetaminophen 650 mg 12/10/21 13:32 Acetaminophen Tab 325 Mg Tab PO Q6HR PRN Mild Pain or Fever > 100.5 Cyanocobalamin 1,000 mcg 07/06/22 19:30 12/11/21 21:47 Cyanocobalamin 1,000 Mcg/Ml 1 Ml Vial IM 12/13/21 09:01 1,000 mcg DAILY BRAD Administration Lactated Ringer's 1,000 mls @ 20 mls/hr 12/11/21 08:45 12/11/21 09:30 Lactated Ringers IV Not Given .Q24H BRAD Sodium Chloride 1,000 mls @ 50 mls/hr 12/11/21 08:45 12/12/21 06:48 Saline 0.9% IV 50 mls/hr .Q20H BRAD Administration Ferric Sodium Gluconate 125 mg 110 mls @ 100 mls/hr 12/11/21 09:30 12/11/21 10:00 / Sodium Chloride IVPB 12/15/21 10:05 100 mls/hr DAILY BRAD Administration Melatonin 3 mg 12/10/21 13:32 Melatonin 3 Mg Tablet PO HS PRN Insomnia Naloxone HCl 0.2 mg 12/10/21 13:32 Naloxone 0.4 Mg/Ml 1 Ml Vial IV Q2M PRN Opioid Reversal Ondansetron HCl 4 mg 12/10/21 13:32 Ondansetron 4 Mg/2 Ml Vial IVP Q8HR PRN Nausea And Vomiting Pantoprazole Sodium 40 mg 12/10/21 21:00 12/11/21 21:45 Pantoprazole 40 Mg/10 Ml Vial IVP 40 mg BID BRAD Administration Pravastatin Sodium 40 mg 12/10/21 21:00 12/11/21 21:46 Pravastatin Sodium 40 Mg Tab PO 40 mg HS BRAD Administration Intake and Output 12/11/21 12/12/21 12/12/21 22:59 06:59 14:59 Intake Total 2100 520 50 Output Total 400 400 200 Balance 1700 120 -150 Intake: IV 400 400 50 0.9 400 400 50 Oral 1080 120 Blood Product 620 Rc As-1 Unit 310 [id number] Output: Urine 400 400 200 Other: Voiding Method Toilet Toilet Urinal Urinal # Voids 1 # Bowel Movements 1 Weight 99 kg 12/12/21 06:36 12/12/21 06:36
[2021-12-12] MEDS: PANTOPRAZOLE 40 MG/10 ML VIAL IVP SCH ×2 (08:16→20:36)
[2021-12-12] MEDS: CYANOCOBALAMIN 1,000 MCG/ML 1 ML VIAL IM SCH (08:17)
[2021-12-12] MEDS: SODIUM FERRIC GLUCONAT-SUCROSE 125 MG in SODIUM CHLORIDE 0.9% 100 ML IVPB SCH (08:29)
--- NOTE | 2021-12-12 09:03 | P.PN ---
Subjective Patient is seen in follow-up for acute kidney injury. Renal function improving. Nonoliguric. Hemoglobin 7.3. Per nurse, has been having bloody bowel movements. Vital signs are stable. Blood pressures on the lower side. General: Awake. No acute distress. HEENT: Head exam is unremarkable. LUNGS: Breath sounds decreased. HEART: Rate and Rhythm are regular. ABDOMEN: Soft, no distention. EXTREMITITES: No edema. Objective - Vital Signs Vital signs: Vital Signs Temp 98.4 F 12/12/21 04:00 Pulse 91 12/12/21 07:30 Resp 5 L 12/12/21 07:30 BP 79/50 12/12/21 07:30 Pulse Ox 93 L 12/12/21 07:30 FiO2 Intake & Output 12/11/21 12/12/21 12/12/21 18:59 06:59 18:59 Intake Total 2330 1320 50 Output Total 775 800 200 Balance 1555 520 -150 Weight 99 kg Intake: IV 575 600 50 0.9 575 600 50 Intake, IV Titration 175 Amount Sodium Chloride 0.9% 1, 75 000 ml @ 75 mls/hr IV . [id number] ONE Rx#:[id number] Sodium Ferric Gluconat- 100 Sucrose 125 mg In Sodium Chloride 0.9% 100 ml @ 100 mls/hr IVPB DAILY [facility] Rx#:[id number] Oral 960 720 Blood Product 620 Rc As-1 Unit 310 [id number] Output: Urine 775 800 200 Other: Voiding Method Toilet Toilet Urinal Urinal # Voids 1 1 # Bowel Movements 2 1 - Labs CBC & Chem 7: 12/12/21 06:36 12/12/21 06:36 Labs: Abnormal Lab Results - Last 24 Hours (Table) 12/10/21 12/10/21 12/11/21 Range/Units 10:50 15:26 12:18 RBC 3.20 L (4.30-5.90) m/uL Hgb 7.6 L (13.0-17.5) gm/dL Hct 25.9 L (39.0-53.0) % MCH 23.7 L (25.0-35.0) pg MCHC 29.4 L (31.0-37.0) g/dL RDW 19.1 H (11.5-15.5) % Chloride (98-107) mmol/L BUN (9-20) mg/dL Creatinine (0.66-1.25) mg/dL Glucose (74-99) mg/dL POC Glucose (mg/dL) (70-110) mg/dL Calcium (8.4-10.2) mg/dL Albumin (PEP) 3.20 L (3.80-4.90) g/dL [place] LC, Quant 10.79 H (0.33-1.94) mg/dL Free Lambda LC, Quant 5.15 H (0.57-2.63) mg/dL Crossmatch See Detail 12/11/21 12/11/21 12/12/21 Range/Units 15:54 19:46 06:36 RBC 3.25 L 2.93 L (4.30-5.90) m/uL Hgb 8.2 L 7.3 L (13.0-17.5) gm/dL Hct 26.4 L 23.9 L (39.0-53.0) % MCH (25.0-35.0) pg MCHC 30.6 L (31.0-37.0) g/dL RDW 19.2 H 19.6 H (11.5-15.5) % Chloride (98-107) mmol/L BUN (9-20) mg/dL Creatinine (0.66-1.25) mg/dL Glucose (74-99) mg/dL POC Glucose (mg/dL) 113 H (70-110) mg/dL Calcium (8.4-10.2) mg/dL Albumin (PEP) (3.80-4.90) g/dL [place] LC, Quant (0.33-1.94) mg/dL Free Lambda LC, Quant (0.57-2.63) mg/dL Crossmatch 12/12/21 Range/Units 06:36 RBC (4.30-5.90) m/uL Hgb (13.0-17.5) gm/dL Hct (39.0-53.0) % MCH (25.0-35.0) pg MCHC (31.0-37.0) g/dL RDW (11.5-15.5) % Chloride 109 H (98-107) mmol/L BUN 36 H (9-20) mg/dL Creatinine 1.38 H (0.66-1.25) mg/dL Glucose 107 H (74-99) mg/dL POC Glucose (mg/dL) (70-110) mg/dL Calcium 8.0 L (8.4-10.2) mg/dL Albumin (PEP) (3.80-4.90) g/dL [place] LC, Quant (0.33-1.94) mg/dL Free Lambda LC, Quant (0.57-2.63) mg/dL Crossmatch Assessment and Plan Plan: Assessment: 1. Acute kidney injury mostly prerenal secondary to hypotension. Creatinine was 3.3 on admission and is 1.38 today. Baseline creatinine 1-1.2. UA benign. No hydronephrosis noted on kidney. 2. Acute GI bleed. Status post blood transfusion this admission. Hemoglobin 7.3. Surgery following. Scheduled for colonoscopy today. Receiving IV iron. 3. Metabolic acidosis secondary to acute kidney injury, metformin and IV fluids. Improved. 4. History of polycythemia. 5. Diabetes mellitus. 6. Aortic stenosis. Cardiology following. Plan: Maintain gentle IV hydration. Check cortisol level as blood pressures on the lower side. Last blood pressure 105/60 per nurse. Scheduled for colonoscopy today. Continue to hold antihypertensives.
[2021-12-12] MEDS ORDERED: DESMOPRESSIN ACETATE 24 MCG in SODIUM CHLORIDE 0.9% 50 ML IVPB ONE (09:15)
--- NOTE | 2021-12-12 10:30 | P.PN ---
Subjective Progress Note Date: 12/12/21 Principal diagnosis: GI bleed Patient is a 76-year-old male patient of Dr. Rosa with diabetes, hypertension, and dyslipidemia who presented to the ER with complaints of bright red blood per rectum. In the ER he underwent extensive evaluation. On arrival he was tachycardic with a pulse of 112. His blood pressure got as low as 66/42. He was given 1 L bolus. Laboratory analysis showed hemoglobin of 8.8, BUN 59, creatinine 3.3. PT/INR was normal. Arrangements are made for admission. Surgery and nephrology were consulted. He continued to have bleeding and required a unit of blood adn IV fluids. His renal function improved, Renal ultrasound was without abnormalities. He was seen by oncology and was found to have iron deficiency anemia, he was started on IV iron. He was noted to have a significant murmur and echo was ordered which showed severe aortic stenosis. Cardiology was consulted. Patient seen and examined at bedside.Had BM with blood during the prep this has slowed. He has no chest pain, sob is unchanged from baseline he denies any nausea or vomiting, no lightheaded or dizziness. He is feeling very hungry. General: nontoxic, no distress, appears at stated age Derm: warm, dry Head: atraumatic, normocephalic, symmetric Eyes: EOMI, no lid lag, anicteric sclera Mouth: no lip lesion, mucus membranes moist Cardiovascular: S1S2 reg with grade 4 systolic ejection murmur, positive posterior tibial pulse bilateral, Lungs: CTA bilateral, no rhonchi, no rales , no accessory muscle use Abdominal: soft, nontender to palpation, no guarding, no appreciable organomegaly Ext: no gross muscle atrophy, 2+ edema, no contractures Neuro: CN II-XI grossly intact, no focal neuro deficits Psych: Alert, oriented, appropriate affect Assessment/Plan: Acute GI bleed s/p 2 units pRBC Acute blood loss anemia with history of polycythemia, iron deficiency anemia, Mild B12 deficiency NSAID use -IV fluids -repeat CBC at 5 pm and in AM -Follow frequent vital signs -Surgery recs appreciated, EGD/Colon today -Heme/onc recs appreciated- IV iron X 3, B 12 X 3 - IV PPI Acute kidney injury, improving Metabolic acidosis - hold ACEI, hold metformin -Renal ultrasound without abnormlaities -Nephrology recs appreciated - avoid additional nephrotoxic agents Severe aortic stenosis, LVH - Cardio recs DM 2 - hold oral - SSI - follow BS Hypertension - hold meds due to labile BP - follow BP Active Medications Generic Name Dose Route Start Last Admin Trade Name Blessing PRN Reason Stop Dose Admin Acetaminophen 650 mg 12/10/21 13:32 Acetaminophen Tab 325 Mg Tab PO Q6HR PRN Mild Pain or Fever > 100.5 Cyanocobalamin 1,000 mcg 12/11/21 19:30 12/12/21 08:17 Cyanocobalamin 1,000 Mcg/Ml 1 Ml Vial IM 12/13/21 09:01 1,000 mcg DAILY BRAD Administration Lactated Ringer's 1,000 mls @ 20 mls/hr 12/11/21 08:45 12/11/21 09:30 Lactated Ringers IV Not Given .Q24H BRAD Sodium Chloride 1,000 mls @ 50 mls/hr 12/11/21 08:45 12/12/21 06:48 Saline 0.9% IV 50 mls/hr .Q20H BRAD Administration Ferric Sodium Gluconate 125 mg 110 mls @ 100 mls/hr 12/11/21 09:30 12/12/21 08:29 / Sodium Chloride IVPB 12/15/21 10:05 100 mls/hr DAILY BRAD Administration Magnesium Sulfate/Dextrose 1 100 mls @ 100 mls/hr 12/12/21 10:15 gm/ IV Solution IVPB 12/12/21 12:14 Q1H BRAD Melatonin 3 mg 12/10/21 13:32 Melatonin 3 Mg Tablet PO HS PRN Insomnia Naloxone HCl 0.2 mg 12/10/21 13:32 Naloxone 0.4 Mg/Ml 1 Ml Vial IV Q2M PRN Opioid Reversal Ondansetron HCl 4 mg 12/10/21 13:32 Ondansetron 4 Mg/2 Ml Vial IVP Q8HR PRN Nausea And Vomiting Pantoprazole Sodium 40 mg 12/10/21 21:00 12/12/21 08:16 Pantoprazole 40 Mg/10 Ml Vial IVP 40 mg BID BRAD Administration Pravastatin Sodium 40 mg 12/10/21 21:00 12/11/21 21:46 Pravastatin Sodium 40 Mg Tab PO 40 mg HS BRAD Administration Objective - Vital Signs Vital signs: Vital Signs Temp 98.4 F 12/12/21 08:00 Pulse 101 H 12/12/21 10:00 Resp 14 12/12/21 10:00 BP 105/60 12/12/21 10:00 Pulse Ox 97 12/12/21 10:00 FiO2 Intake & Output 12/11/21 12/12/21 12/12/21 18:59 06:59 18:59 Intake Total 2330 1320 300 Output Total 775 800 520 Balance 1555 520 -220 Weight 99 kg Intake: IV 575 600 300 0.9 575 600 200 Sodium Ferric Gluconat- 100 Sucrose 125 mg In Sodium Chloride 0.9% 100 ml @ 100 mls/hr IVPB DAILY [facility] Rx#:[id number] Intake, IV Titration 175 Amount Sodium Chloride 0.9% 1, 75 000 ml @ 75 mls/hr IV . [id number] ONE Rx#:[id number] Sodium Ferric Gluconat- 100 Sucrose 125 mg In Sodium Chloride 0.9% 100 ml @ 100 mls/hr IVPB DAILY [facility] Rx#:[id number] Oral 960 720 Blood Product 620 Rc As-1 Unit 310 [id number] Output: Urine 775 800 520 Other: Voiding Method Toilet Toilet Toilet Urinal Urinal Bedside Commode Urinal # Voids 1 1 # Bowel Movements 2 1 - Labs CBC & Chem 7: 12/12/21 06:36 12/12/21 06:36 Labs: Abnormal Lab Results - Last 24 Hours (Table) 12/10/21 12/10/21 12/11/21 Range/Units 10:50 15:26 12:18 RBC 3.20 L (4.30-5.90) m/uL Hgb 7.6 L (13.0-17.5) gm/dL Hct 25.9 L (39.0-53.0) % MCH 23.7 L (25.0-35.0) pg MCHC 29.4 L (31.0-37.0) g/dL RDW 19.1 H (11.5-15.5) % Chloride (98-107) mmol/L BUN (9-20) mg/dL Creatinine (0.66-1.25) mg/dL Glucose (74-99) mg/dL POC Glucose (mg/dL) (70-110) mg/dL Calcium (8.4-10.2) mg/dL Albumin (PEP) 3.20 L (3.80-4.90) g/dL Free [place] LC, Quant 10.79 H (0.33-1.94) mg/dL Free Lambda LC, Quant 5.15 H (0.57-2.63) mg/dL Crossmatch See Detail 12/11/21 12/11/21 12/12/21 Range/Units 15:54 19:46 06:36 RBC 3.25 L 2.93 L (4.30-5.90) m/uL Hgb 8.2 L 7.3 L (13.0-17.5) gm/dL Hct 26.4 L 23.9 L (39.0-53.0) % MCH (25.0-35.0) pg MCHC 30.6 L (31.0-37.0) g/dL RDW 19.2 H 19.6 H (11.5-15.5) % Chloride (98-107) mmol/L BUN (9-20) mg/dL Creatinine (0.66-1.25) mg/dL Glucose (74-99) mg/dL POC Glucose (mg/dL) 113 H (70-110) mg/dL Calcium (8.4-10.2) mg/dL Albumin (PEP) (3.80-4.90) g/dL Free [place] LC, Quant (0.33-1.94) mg/dL Free Lambda LC, Quant (0.57-2.63) mg/dL Crossmatch 12/12/21 Range/Units 06:36 RBC (4.30-5.90) m/uL Hgb (13.0-17.5) gm/dL Hct (39.0-53.0) % MCH (25.0-35.0) pg MCHC (31.0-37.0) g/dL RDW (11.5-15.5) % Chloride 109 H (98-107) mmol/L BUN 36 H (9-20) mg/dL Creatinine 1.38 H (0.66-1.25) mg/dL Glucose 107 H (74-99) mg/dL POC Glucose (mg/dL) (70-110) mg/dL Calcium 8.0 L (8.4-10.2) mg/dL Albumin (PEP) (3.80-4.90) g/dL Free [place] LC, Quant (0.33-1.94) mg/dL Free Lambda LC, Quant (0.57-2.63) mg/dL Crossmatch
[2021-12-12] MEDS ORDERED: PROPOFOL 10 MG/ML 20 ML VIAL IV ONE (11:17)
[2021-12-12] MEDS ORDERED: LIDOCAINE 2% INJ 20 MG/ML (2 ML VIAL) ONE (11:17)
[2021-12-12] MEDS ORDERED: IV FLUID CONTINUATION 1,000 ML IV ONE ×2 (11:20)
--- NOTE | 2021-12-12 11:40 | P.OP ---
Date of Procedure: 12/12/21 Preoperative Diagnosis: GI bleed Postoperative Diagnosis: Antral gastritis Severe diverticulosis Procedure(s) Performed: EGD Colonoscopy Anesthesia: MAC Surgeon: Luciano Sullivan Pathology: other (Antral) Condition: stable Disposition: PACU Description of Procedure: The patient's placed on the endoscopy table in the lateral position.. He received IV sedation. The gastroscope placed oropharynx passed in the esophagus into the stomach. The scope was then placed through the pylorus. The first and second portion of the duodenum appeared normal. The scope was then brought back the antrum this appeared mildly inflamed. The scope was then retroflexed and the remainder the stomach appeared normal. The GE junction was at 40 cm. The distal esophagus appeared normal. The proximal esophagus appeared normal. Withdrawn for patient. Next digital rectal exam was performed. This revealed minimal external hemorrhoids. The flexible colonoscope was then placed patient anus and passed into the colon. There was extensive diverticular changes noted in the sigmoid colon. There was also extensive diverticular changes in the left colon. The scope cavity advanced beyond the splenic flexure secondary to tortuosity of the bowel and the severe diverticulosis. Scope withdrawn. There were diverticular changes seen in the sigmoid and left colon. There is no active bleeding seen. The scope was brought back the rectum and this appeared normal. Scope withdrawn for patient. His presumed patient may have had bleeding from diverticular disease or hemorrhoids. No active GI bleeding was seen on colonoscopy.
--- NOTE | 2021-12-12 11:44 | P.PN ---
Subjective Progress Note Date: 12/12/21 Principal diagnosis: Acute GI bleeding This is a 76-year-old white male with history of diabetes, hypertension, dyslipidemia, patient presented to the ER yesterday with 2 days history of bright red blood per rectum. Upon evaluation in the ER, patient was noted to be a bit tachycardic, blood pressure was 66/42, and his hemoglobin was 8.8. Patient received 1 L of fluid boluses, he also received a unit of packed RBCs, admitted to the ICU, and this consult was initiated. General surgery was consulted, patient is supposed to undergo colonoscopy sometime later today. Supposedly the patient had his last colonoscopy was 7 years ago. And it was supposedly normal. Patient is known to have history of polycythemia and he normally sees the loaf counter for his polycythemia, typically undergoes phlebotomy on a regular basis for his elevated hemoglobin and hematocrit. Patient has been taking recently significant amount of ibuprofen for dental pain as he had recent teeth extractions. Patient denies any denies any lightheadedness, denies any chest pain. He also denies fever or chills. Hemoglobin on his initial presentation was 8.8. Today hemoglobin is 7.3 however he did receive a unit of packed RBCs since admission. Patient is now on IV fluids at 50 mL per hour, is also on pantoprazole at 40 mg IV push twice a day. Patient is also receiving for a ferric gluconate. On admission the patient was noted to have acute kidney injury with creatinine of 3.30 and today it is 2.11, patient is normally on metformin for diabetes. This is being addressed by nephrology on the case. Reevaluated today on 12/12/2021, patient remains in the ICU, had further GI blood loss, and the patient received another unit of packed RBCs, he received so far total of 2 units of packed RBCs since admission. Patient was seen by cardiology, echocardiogram revealed severe aortic stenosis, with peak velocity of 524 m/s, and peak gradient of 110 mm mean gradient is 67. Patient is being considered for eventual taVR in the future patient was cleared for GI workup/colonoscopy, although he is considered relatively high risk. Patient tells me today that he had chronic shortness of breath, able to walk a few blocks, and he had 1 episode of syncope many years ago. Patient remains on room air, in no distress, hemoglobin today is 7.3, it was 8.2 yesterday. Electrolytes are normal renal profile is improving creatinine is 1.38, hemodynamically the patient is stable Objective - Vital Signs Vital signs: Vital Signs Temp 98.4 F 12/12/21 08:00 Pulse 102 H 12/12/21 11:00 Resp 16 12/12/21 11:00 BP 116/96 12/12/21 11:00 Pulse Ox 97 12/12/21 11:00 FiO2 Intake & Output 12/11/21 12/12/21 12/12/21 18:59 06:59 18:59 Intake Total 2330 1320 400 Output Total 775 800 520 Balance 1555 520 -120 Weight 99 kg Intake: IV 575 600 400 0.9 575 600 250 Desmopressin Acetate 24 50 mcg In Sodium Chloride 0. 9% 50 ml @ 200 mls/hr IVPB ONCE ONE Rx#: [id number] Sodium Ferric Gluconat- 100 Sucrose 125 mg In Sodium Chloride 0.9% 100 ml @ 100 mls/hr IVPB DAILY [facility]CLUDES [facility] Rx#:[id number] Intake, IV Titration 175 Amount Sodium Chloride 0.9% 1, 75 000 ml @ 75 mls/hr IV . [id number] ONE Rx#:[id number] Sodium Ferric Gluconat- 100 Sucrose 125 mg In Sodium Chloride 0.9% 100 ml @ 100 mls/hr IVPB DAILY COUNT INCLUDES THE [facility] Rx#:[id number] Oral 960 720 Blood Product 620 Rc As-1 Unit 310 [id number] Output: Urine 775 800 520 Other: Voiding Method Toilet Toilet Toilet Urinal Urinal Bedside Commode Urinal # Voids 1 1 0 # Bowel Movements 2 1 - Exam Physical Exam: Revealed 76-year-old white male in no distress, on room air. HEENT:[Neck is supple.] [No neck masses.] [No thyromegaly.] [No JVD.], Moist mucous membranes Chest: Symmetrical chest expansion diminished breath sounds at the bases no crackles or rhonchi or wheezes Cardiac Exam: Normal S1 and S2, 3/6 systolic ejection murmur thought the precordium Abdomen: [Soft, nontender, no megaly, no rebound, no guarding, normal bowel sounds.] Extremities: [No clubbing, no edema, no cyanosis.] Neurological Exam: [No focal neurologic deficit.] Alert and oriented 3. Psychiatric: Normal mood affect and normal mental status examination. Skin: No rashes - Labs CBC & Chem 7: 12/12/21 06:36 12/12/21 06:36 Labs: Abnormal Lab Results - Last 24 Hours (Table) 12/10/21 12/10/21 12/11/21 Range/Units 10:50 15:26 12:18 RBC 3.20 L (4.30-5.90) m/uL Hgb 7.6 L (13.0-17.5) gm/dL Hct 25.9 L (39.0-53.0) % MCH 23.7 L (25.0-35.0) pg MCHC 29.4 L (31.0-37.0) g/dL RDW 19.1 H (11.5-15.5) % Chloride (98-107) mmol/L BUN (9-20) mg/dL Creatinine (0.66-1.25) mg/dL Glucose (74-99) mg/dL POC Glucose (mg/dL) (70-110) mg/dL Calcium (8.4-10.2) mg/dL Albumin (PEP) 3.20 L (3.80-4.90) g/dL Free [place] LC, Quant 10.79 H (0.33-1.94) mg/dL Free [place] LC, Quant 5.15 H (0.57-2.63) mg/dL Crossmatch See Detail 12/11/21 12/11/21 12/12/21 Range/Units 15:54 19:46 06:36 RBC 3.25 L 2.93 L (4.30-5.90) m/uL Hgb 8.2 L 7.3 L (13.0-17.5) gm/dL Hct 26.4 L 23.9 L (39.0-53.0) % MCH (25.0-35.0) pg MCHC 30.6 L (31.0-37.0) g/dL RDW 19.2 H 19.6 H (11.5-15.5) % Chloride (98-107) mmol/L BUN (9-20) mg/dL Creatinine (0.66-1.25) mg/dL Glucose (74-99) mg/dL POC Glucose (mg/dL) 113 H (70-110) mg/dL Calcium (8.4-10.2) mg/dL Albumin (PEP) (3.80-4.90) g/dL Free [place] LC, Quant (0.33-1.94) mg/dL Free [place]ambda LC, Quant (0.57-2.63) mg/dL Crossmatch 12/12/21 Range/Units 06:36 RBC (4.30-5.90) m/uL Hgb (13.0-17.5) gm/dL Hct (39.0-53.0) % MCH (25.0-35.0) pg MCHC (31.0-37.0) g/dL RDW (11.5-15.5) % Chloride 109 H (98-107) mmol/L BUN 36 H (9-20) mg/dL Creatinine 1.38 H (0.66-1.25) mg/dL Glucose 107 H (74-99) mg/dL POC Glucose (mg/dL) (70-110) mg/dL Calcium 8.0 L (8.4-10.2) mg/dL Albumin (PEP) (3.80-4.90) g/dL Free [place] LC, Quant (0.33-1.94) mg/dL Free Lambda LC, Quant (0.57-2.63) mg/dL Crossmatch Assessment and Plan Assessment: Impression: Acute GI bleeding, etiology is unclear however workup is in progress, patient will likely require EGD and colonoscopy. Nonsteroidal anti-inflammatory drugs use History of polycythemia Acute kidney injury, diuretics, KYLE inhibitor and metformin are presently on hold, renal status is improving and creatinine seems to be coming down. Type 2 diabetes Benign essential hypertension Severe aortic stenosis as noted on echocardiogram, may eventually require valve replacement Recommendation: Continue Protonix Proceed with GI workup to determine the exact source of the bleeding Renal ultrasound was reviewed and there is no evidence of hydronephrosis Transfuse for any hemoglobin below 7 Continue iron infusions Based on the findings from colonoscopy and/or EGD, further recommendations to follow regarding staying in the ICU for transfer out of ICU. We will continue to follow. While in the intensive care unit Time with Patient: Less than 30
[2021-12-12] MEDS: MAGNESIUM SULFATE-D5W PMX 1 GM in DEXTROSE/WATER 1 100ML.BAG IVPB SCH ×2 (12:22→14:11)
[2021-12-12 13:01] LABS: Glucose,Whole Blood 139 mg/dL (70-110)
[2021-12-12] MEDS: LACTATED RINGERS 1,000 ML IV SCH (14:04)
[2021-12-12 16:16] LABS: Anisocytosis Slight; HCT 24.9 % (39.0-53.0); HGB 7.7 gm/dL (13.0-17.5); Hypochromasia Marked; MCH 24.9 pg (25.0-35.0); MCHC 30.7 g/dL (31.0-37.0); MCV 81.2 fL (80.0-100.0); Mean Platelet Volume 7.2; Microcytosis Slight; Platelet Count 215 k/uL (150-450); Poikilocytosis Moderate; RBC 3.07 m/uL (4.30-5.90); RDW 19.9 % (11.5-15.5); WBC 7.9 k/uL (3.8-10.6)
[2021-12-12 16:18] LABS: Glucose,Whole Blood 142 mg/dL (70-110)
[2021-12-12] MEDS: INSULIN ASPART (NovoLOG) 100 UNIT/ML VIAL SQ SCH ×2 (16:49→20:37)
[2021-12-12 20:28] LABS: Glucose,Whole Blood 150 mg/dL (70-110)
[2021-12-12] MEDS: PRAVASTATIN SODIUM 40 MG TAB PO SCH (20:37)
[2021-12-13] MEDS: SODIUM CHLORIDE 0.9% 1,000 ML IV SCH (04:24)
[2021-12-13 05:55] LABS: Glucose,Whole Blood 146 mg/dL (70-110)
[2021-12-13] MEDS: INSULIN ASPART (NovoLOG) 100 UNIT/ML VIAL SQ SCH ×2 (06:29→13:06)
[2021-12-13 09:02] LABS: Anisocytosis Moderate; HCT 25.6 % (39.0-53.0); HGB 7.7 gm/dL (13.0-17.5); Hypochromasia Marked; MCHC 30.3 g/dL (31.0-37.0); MCV 82.7 fL (80.0-100.0); Microcytosis Slight; Platelet Count 272 k/uL (150-450); Poikilocytosis Moderate; RBC 3.09 m/uL (4.30-5.90); RDW 20.3 % (11.5-15.5); WBC 9.1 k/uL (3.8-10.6)
[2021-12-13] MEDS: CYANOCOBALAMIN 1,000 MCG/ML 1 ML VIAL IM SCH (09:40)
--- NOTE | 2021-12-13 09:44 | P.PN ---
Subjective Patient is seen in follow-up for acute kidney injury. Renal function improving. Creatinine 1.38 yesterday. Nonoliguric. No bowel movement today. Vital signs are stable. Blood pressures 121/89 this morning. General: Awake. No acute distress. HEENT: Head exam is unremarkable. LUNGS: Breath sounds decreased. HEART: Rate and Rhythm are regular. ABDOMEN: Soft, no distention. EXTREMITITES: No edema. Objective - Vital Signs Vital signs: Vital Signs Temp 97.6 F 12/13/21 08:00 Pulse 87 12/13/21 08:00 Resp 15 12/13/21 08:00 BP 121/89 12/13/21 08:00 Pulse Ox 95 12/13/21 08:00 FiO2 Intake & Output 12/12/21 12/13/21 12/13/21 18:59 06:59 18:59 Intake Total 950 118 Output Total 970 Balance -20 118 Intake: IV 950 0.9 600 Desmopressin Acetate 24 50 mcg In Sodium Chloride 0. 9% 50 ml @ 200 mls/hr IVPB ONCE ONE Rx#: [id number] Sodium Ferric Gluconat- 100 Sucrose 125 mg In Sodium Chloride 0.9% 100 ml @ 100 mls/hr IVPB DAILY [facility] Rx#:[id number] Oral 118 Output: Urine 970 Other: Voiding Method Toilet Toilet Toilet Bedside Commode Urinal Urinal Urinal # Voids 0 - Labs CBC & Chem 7: 12/13/21 08:15 12/12/21 06:36 Labs: Abnormal Lab Results - Last 24 Hours (Table) 12/10/21 12/12/21 12/12/21 Range/Units 13:30 12:59 15:55 RBC 3.07 L (4.30-5.90) m/uL Hgb 7.7 L (13.0-17.5) gm/dL Hct 24.9 L (39.0-53.0) % MCH 24.9 L (25.0-35.0) pg MCHC 30.7 L (31.0-37.0) g/dL RDW 19.9 H (11.5-15.5) % Pathologist Review See comment A POC Glucose (mg/dL) 139 H (70-110) mg/dL 12/12/21 12/12/21 12/13/21 Range/Units 16:16 20:26 05:51 RBC (4.30-5.90) m/uL Hgb (13.0-17.5) gm/dL Hct (39.0-53.0) % MCH (25.0-35.0) pg MCHC (31.0-37.0) g/dL RDW (11.5-15.5) % Pathologist Review POC Glucose (mg/dL) 142 H 150 H 146 H (70-110) mg/dL 12/13/21 Range/Units 08:15 RBC 3.09 L (4.30-5.90) m/uL Hgb 7.7 L (13.0-17.5) gm/dL Hct 25.6 L (39.0-53.0) % MCH (25.0-35.0) pg MCHC 30.3 L (31.0-37.0) g/dL RDW 20.3 H (11.5-15.5) % Pathologist Review POC Glucose (mg/dL) (70-110) mg/dL Assessment and Plan Plan: Assessment: 1. Acute kidney injury mostly prerenal secondary to hypotension. Creatinine was 3.3 on admission - 1.38 yesterday. Baseline creatinine 1-1.2. UA benign. No hydronephrosis noted on kidney. 2. Acute GI bleed. Status post blood transfusion this admission. Hemoglobin 7.7 yesterday. Surgery following. EGD and colonoscopy done 12/12/2021 showed antral gastritis and diverticulosis. Also received IV DDAVP this admission. 3. Metabolic acidosis secondary to acute kidney injury, metformin and IV fluids. Improved. 4. History of polycythemia. 5. Diabetes mellitus. 6. Aortic stenosis. Cardiology following. Plan: Maintain gentle IV hydration. Encourage oral intake. Continue to hold antihypertensives. Cortisol level not low. Morning labs pending.
[2021-12-13] MEDS: SODIUM FERRIC GLUCONAT-SUCROSE 125 MG in SODIUM CHLORIDE 0.9% 100 ML IVPB SCH (10:39)
[2021-12-13 11:16] LABS: Calcium 8.3 mg/dL (8.4-10.2); Potassium 4.4 mmol/L (3.5-5.1)
[2021-12-13 11:30] VITALS: BP 108/67; PULSE 96; RESP 16; TEMP 97.8
[2021-12-13 11:38] LABS: Glucose,Whole Blood 155 mg/dL (70-110)
--- NOTE | 2021-12-13 12:20 | P.PN ---
Subjective Progress Note Date: 12/12/21 Principal diagnosis: GI Bleed However GI eval did not identify active bleeding, severe diverticulosis was identified. Patient requiring 2 units of blood yesterday to keep adequate hemoglobin today. Objective - Vital Signs Vital signs: Vital Signs Temp 98.4 F 12/12/21 08:00 Pulse 102 H 12/12/21 11:00 Resp 16 12/12/21 11:00 BP 116/96 12/12/21 11:00 Pulse Ox 97 12/12/21 11:00 FiO2 Intake & Output 12/11/21 12/12/21 12/12/21 18:59 06:59 18:59 Intake Total 2330 1320 600 Output Total 775 800 520 Balance 1555 520 80 Weight 99 kg Intake: IV 575 600 600 0.9 575 600 250 Desmopressin Acetate 24 50 mcg In Sodium Chloride 0. 9% 50 ml @ 200 mls/hr IVPB ONCE ONE Rx#: [id number] Sodium Ferric Gluconat- 100 Sucrose 125 mg In Sodium Chloride 0.9% 100 ml @ 100 mls/hr IVPB DAILY [facility] Rx#:[id number] Intake, IV Titration 175 Amount Sodium Chloride 0.9% 1, 75 000 ml @ 75 mls/hr IV . [id number] ONE Rx#:[id number] Sodium Ferric Gluconat- 100 Sucrose 125 mg In Sodium Chloride 0.9% 100 ml @ 100 mls/hr IVPB DAILY [facility] Rx#:[id number] Oral 960 720 Blood Product 620 Rc As-1 Unit 310 [id number] Output: Urine 775 800 520 Other: Voiding Method Toilet Toilet Toilet Urinal Urinal Bedside Commode Urinal # Voids 1 1 0 # Bowel Movements 2 1 - Exam Darkened grayish skin Alert NAD Abdomen dis, soft HR Irr - Labs CBC & Chem 7: 12/13/21 08:15 12/13/21 08:15 Labs: Abnormal Lab Results - Last 24 Hours (Table) 12/10/21 12/10/21 12/11/21 Range/Units 10:50 15:26 12:18 RBC 3.20 L (4.30-5.90) m/uL Hgb 7.6 L (13.0-17.5) gm/dL Hct 25.9 L (39.0-53.0) % MCH 23.7 L (25.0-35.0) pg MCHC 29.4 L (31.0-37.0) g/dL RDW 19.1 H (11.5-15.5) % Chloride (98-107) mmol/L BUN (9-20) mg/dL Creatinine (0.66-1.25) mg/dL Glucose (74-99) mg/dL POC Glucose (mg/dL) (70-110) mg/dL Calcium (8.4-10.2) mg/dL Albumin (PEP) 3.20 L (3.80-4.90) g/dL Free [place] LC, Quant 10.79 H (0.33-1.94) mg/dL Free Lambda LC, Quant 5.15 H (0.57-2.63) mg/dL Crossmatch See Detail 12/11/21 12/11/21 12/12/21 Range/Units 15:54 19:46 06:36 RBC 3.25 L 2.93 L (4.30-5.90) m/uL Hgb 8.2 L 7.3 L (13.0-17.5) gm/dL Hct 26.4 L 23.9 L (39.0-53.0) % MCH (25.0-35.0) pg MCHC 30.6 L (31.0-37.0) g/dL RDW 19.2 H 19.6 H (11.5-15.5) % Chloride (98-107) mmol/L BUN (9-20) mg/dL Creatinine (0.66-1.25) mg/dL Glucose (74-99) mg/dL POC Glucose (mg/dL) 113 H (70-110) mg/dL Calcium (8.4-10.2) mg/dL Albumin (PEP) (3.80-4.90) g/dL Free [place] LC, Quant (0.33-1.94) mg/dL Free Lambda LC, Quant (0.57-2.63) mg/dL Crossmatch 12/12/21 Range/Units 06:36 RBC (4.30-5.90) m/uL Hgb (13.0-17.5) gm/dL Hct (39.0-53.0) % MCH (25.0-35.0) pg MCHC (31.0-37.0) g/dL RDW (11.5-15.5) % Chloride 109 H (98-107) mmol/L BUN 36 H (9-20) mg/dL Creatinine 1.38 H (0.66-1.25) mg/dL Glucose 107 H (74-99) mg/dL POC Glucose (mg/dL) (70-110) mg/dL Calcium 8.0 L (8.4-10.2) mg/dL Albumin (PEP) (3.80-4.90) g/dL Free [place] LC, Quant (0.33-1.94) mg/dL Free Lambda LC, Quant (0.57-2.63) mg/dL Crossmatch Assessment and Plan (1) Polycythemia vera Narrative/Plan: - last required phlebotomy 11/13/21 hemoglobin was 16.7 - Hold phlebotomies at this time. - Unknown JAK2 status Current Visit: Yes Status: Acute Code(s): D45 - POLYCYTHEMIA VERA SNOMED Code(s): 025648531 (2) Acute renal failure Narrative/Plan: - New finding and nephrology following Current Visit: Yes Status: Acute Code(s): N17.9 - ACUTE KIDNEY FAILURE, UNSPECIFIED SNOMED Code(s): 68552925 (3) Anemia Narrative/Plan: Severe 50% loss of blood GI evaluation without active bleeding found Hold AC, ASA Will check for hemolysis, less likely Evidence of IRon deficiency with active bleed Parental Iron ordered COntinue to transfuse PRBC B12 low norm, supplemented Current Visit: Yes Status: Acute Code(s): D64.9 - ANEMIA, UNSPECIFIED SNOMED Code(s): 718560979 (4) GI bleed Current Visit: Yes Status: Acute Code(s): K92.2 - GASTROINTESTINAL HEMORRHAGE, UNSPECIFIED SNOMED Code(s): 86636614
--- NOTE | 2021-12-13 12:37 | P.PN ---
Subjective Progress Note Date: 12/13/21 CHIEF COMPLAINT: GI bleed HISTORY OF PRESENT ILLNESS: Patient is status post EGD and colonoscopy with res ults showing antral gastritis, severe diverticulosis and external hemorrhoids. Patient tolerating diet. Denies any abdominal pain. Hemoglobin is stable at 7.7. He's had no further evidence of bleeding. Patient seen and examined with Dr. tran PHYSICAL EXAM: VITAL SIGNS: Reviewed. GENERAL: Well-developed in no acute distress. HEENT: No sclera icterus. Extraocular movements grossly intact. Moist buccal mucosa. Head is atraumatic, normocephalic. ABDOMEN: Soft. Nondistended. Nontender. NEUROLOGIC: Alert and oriented. Cranial nerves II through XII grossly intact. ASSESSMENT: 1. Acute GI bleed presumed bleeding secondary to diverticular disease or hemorrhoids 2. Acute blood loss anemia 3. Status post EGD and colonoscopy demonstrates antral gastritis, severe diverticulosis and external hemorrhoids PLAN: -Patient is stable from surgical standpoint for discharge -Continue PPI Physician Computer Information Science Professor note has been reviewed by physician. Signing provider agrees with the documented findings, assessment, and plan of care. Objective - Vital Signs Vital signs: Vital Signs Temp 97.8 F 12/13/21 11:28 Pulse 96 12/13/21 11:28 Resp 16 12/13/21 11:28 BP 108/67 12/13/21 11:28 Pulse Ox 95 12/13/21 08:00 FiO2 Intake & Output 12/12/21 12/13/21 12/13/21 18:59 06:59 18:59 Intake Total 950 118 Output Total 970 Balance -20 118 Intake: IV 950 0.9 600 Desmopressin Acetate 24 50 mcg In Sodium Chloride 0. 9% 50 ml @ 200 mls/hr IVPB ONCE ONE Rx#: [id number] Sodium Ferric Gluconat- 100 Sucrose 125 mg In Sodium Chloride 0.9% 100 ml @ 100 mls/hr IVPB DAILY [facility] Rx#:[id number] Oral 118 Output: Urine 970 Other: Voiding Method Toilet Toilet Toilet Bedside Commode Urinal Urinal Urinal # Voids 0 - Labs CBC & Chem 7: 12/13/21 08:15 12/13/21 08:15 Labs: Abnormal Lab Results - Last 24 Hours (Table) 12/10/21 12/12/21 12/12/21 Range/Units 13:30 12:59 15:55 RBC 3.07 L (4.30-5.90) m/uL Hgb 7.7 L (13.0-17.5) gm/dL Hct 24.9 L (39.0-53.0) % MCH 24.9 L (25.0-35.0) pg MCHC 30.7 L (31.0-37.0) g/dL RDW 19.9 H (11.5-15.5) % Pathologist Review See comment A BUN (9-20) mg/dL Creatinine (0.66-1.25) mg/dL Glucose (74-99) mg/dL POC Glucose (mg/dL) 139 H (70-110) mg/dL Calcium (8.4-10.2) mg/dL 12/12/21 12/12/21 12/13/21 Range/Units 16:16 20:26 05:51 RBC (4.30-5.90) m/uL Hgb (13.0-17.5) gm/dL Hct (39.0-53.0) % MCH (25.0-35.0) pg MCHC (31.0-37.0) g/dL RDW (11.5-15.5) % Pathologist Review BUN (9-20) mg/dL Creatinine (0.66-1.25) mg/dL Glucose (74-99) mg/dL POC Glucose (mg/dL) 142 H 150 H 146 H (70-110) mg/dL Calcium (8.4-10.2) mg/dL 12/13/21 12/13/21 12/13/21 Range/Units 08:15 08:15 11:30 RBC 3.09 L (4.30-5.90) m/uL Hgb 7.7 L (13.0-17.5) gm/dL Hct 25.6 L (39.0-53.0) % MCH (25.0-35.0) pg MCHC 30.3 L (31.0-37.0) g/dL RDW 20.3 H (11.5-15.5) % Pathologist Review BUN 24 H (9-20) mg/dL Creatinine 1.36 H (0.66-1.25) mg/dL Glucose 114 H (74-99) mg/dL POC Glucose (mg/dL) 155 H (70-110) mg/dL Calcium 8.3 L (8.4-10.2) mg/dL
--- NOTE | 2021-12-13 12:41 | P.PN ---
Subjective Patient is a pleasant 76-year-old male with history of diabetes mellitus type 2 hypertension hyperlipidemia documentation of prior polycythemia and recent GI bleed as well as acute kidney injury and aortic stenosis who presents secondary to GI bleed. He started noticing blood in the stool 2 days prior to arrival and continued to have bleeding with bright red blood and clots as well as diarrhea and therefore presented to the ER. He denies any abdominal pain, fevers, chills. He denies being lightheaded however blood pressure on presentation 6 /42 with acute kidney injury with creatinine up to 3.3. He does have a history of polycythemia and sees Dr. barcenas in hemoglobin normally more in the 14-15 range. He has been taking some NSAIDs for tooth pain. He is also been taking a baby aspirin however this was stopped on arrival. His bleeding has been somewhat better over last 24 hours per patient and hemoglobin has stabilized. He does have a prior history of smoking however quit a while ago, no alcohol and no illicit drugs no family history of CAD. Echo 12/10/2021 shows peak gradient 5.2 m/s with a mean gradient of 67 and severe aortic stenosis. He states he has not been very active and normal if he goes a grocery store he will use an electric scooter. He blames this mainly on his joint pains. He denies any actual dyspnea however does not do much. He did have a syncopal episode a few years ago however denies much lightheadedness. His blood pressure was initially 66 systolic and denied feeling lightheaded at this time however 2 and appears fairly stoic. Denies any chest pain or pressure. He does have lower extremity edema which he blames on his diabetes usually fairly mild. 12/13/2021 Patient seen and examined at bedside, no acute distress. He continues to have no complaints. His vital signs are stable, blood pressure continues to be on the lower side 95/58 overnight. Hemoglobin 7.7. BUN 24, serum creatinine 1.3. Lisinopril is on hold. Patient currently maintained on pravastatin 40 mg nightly PHYSICAL EXAMINATION Vital signs reviewed. CONSTITUTIONAL: No apparent distress. HEENT: Head is normocephalic. Neck Supple. No JVD. CHEST EXAMINATION: Lungs are clear to auscultation. No chest wall tenderness is noted on palpation or with deep breathing. HEART EXAMINATION: Regular rate and rhythm. S1, S2 heard. +4/6 systolic murmur, no gallops or rub. ABDOMEN: Soft, nontender. Positive bowel sounds. EXTREMITIES: 2+ peripheral pulses, no lower extremity edema and no calf tenderness. NEUROLOGIC EXAMINATION: Patient is awake, alert and oriented x3. ASSESSMENT Critical aortic stenosis Acute GI bleed appears to be improving Acute kidney injury improving Chronic heart failure with preserved ejection fraction , mild lower extremity edema appears stable History of polycythemia Debility not very active Diabetes mellitus type 2 PLAN Echocardiogram reviewed with critical aortic stenosis. Given critical aortic stenosis discussed recommendations for aortic valve replacement. Stabilize hemoglobin and then we will perform TAVR workup in the next few weeks. Hold antihypertensive medications for now. Patient to follow up outpatient with Dr. Nash Currently stable from a cardiology perspective. Nurse practitioner note has been reviewed by physician. Signing provider agrees with the documented findings, assessment, and plan of care. Objective - Vital Signs Vital signs: Vital Signs Temp 98.2 F 12/12/21 19:35 Pulse 100 12/13/21 04:05 Resp 18 12/13/21 04:05 BP 95/58 12/13/21 04:05 Pulse Ox 95 12/13/21 04:05 FiO2 Intake & Output 12/12/21 12/13/21 12/13/21 18:59 06:59 18:59 Intake Total 950 Output Total 970 Balance -20 Intake: IV 950 0.9 600 Desmopressin Acetate 24 50 mcg In Sodium Chloride 0. 9% 50 ml @ 200 mls/hr IVPB ONCE ONE Rx#: [id number] Sodium Ferric Gluconat- 100 Sucrose 125 mg In Sodium Chloride 0.9% 100 ml @ 100 mls/hr IVPB DAILY [facility] Rx#:[id number] Output: Urine 970 Other: Voiding Method Toilet Toilet Bedside Commode Urinal Urinal # Voids 0 - Labs CBC & Chem 7: 12/13/21 08:15 12/13/21 08:15 Labs: Abnormal Lab Results - Last 24 Hours (Table) 12/10/21 12/12/21 12/12/21 Range/Units 13:30 12:59 15:55 RBC 3.07 L (4.30-5.90) m/uL Hgb 7.7 L (13.0-17.5) gm/dL Hct 24.9 L (39.0-53.0) % MCH 24.9 L (25.0-35.0) pg MCHC 30.7 L (31.0-37.0) g/dL RDW 19.9 H (11.5-15.5) % Pathologist Review See comment A POC Glucose (mg/dL) 139 H (70-110) mg/dL 12/12/21 12/12/21 12/13/21 Range/Units 16:16 20:26 05:51 RBC (4.30-5.90) m/uL Hgb (13.0-17.5) gm/dL Hct (39.0-53.0) % MCH (25.0-35.0) pg MCHC (31.0-37.0) g/dL RDW (11.5-15.5) % Pathologist Review POC Glucose (mg/dL) 142 H 150 H 146 H (70-110) mg/dL
--- NOTE | 2021-12-13 12:49 | P.DS ---
Providers Date of admission: 12/10/21 12:56 Expected date of discharge: 12/13/21 Attending physician: Marilou Brown DO Consults: 12/10/21 12:54 Consult Physician Urgent Consulting Provider: Luciano Sullivan Consult Reason/Comments: GI bleed Do you want consulting provider notified?: Yes Consult Physician Urgent Consulting Provider: Ry Calero Consult Reason/Comments: Acute renal failure Do you want consulting provider notified?: Yes 12/10/21 13:34 Consult Physician Routine Consulting Provider: Jorge Adorno Consult Reason/Comments: GI bleed in patient with polycythemia Do you want consulting provider notified?: Yes 12/11/21 00:50 Consult Physician Stat Consulting Provider: Steven Kwong Consult Reason/Comments: GI bleed symptomatic Do you want consulting provider notified?: Already Contacted 12/11/21 12:35 Consult Physician Routine Consulting Provider: Chano Ceja Consult Reason/Comments: Severe aortic stenosis Do you want consulting provider notified?: Yes Primary care physician: Stated None Hospital Course: Discharge Diagnosis: Acute lower GI bleed secondary to diverticulosis Acute blood loss anemia, polycythemia, iron deficiency and mild B12 anemia Acute kidney injury Metabolic acidosis Severe aortic stenosis LVH Diabetes mellitus type 2 History of hypertension. Hospital Course: Patient is a 76-year-old male patient of Dr. Rosa with diabetes, hypertension, and dyslipidemia who presented to the ER with complaints of bright red blood per rectum. In the ER he underwent extensive evaluation. On arrival he was tachycardic with a pulse of 112. His blood pressure got as low as 66/42. He was given 1 L bolus. Laboratory analysis showed hemoglobin of 8.8, BUN 59, creatinine 3.3. PT/INR was normal. Arrangements are made for admission. Surgery and nephrology were consulted. He continued to have bleeding and required a unit of blood adn IV fluids. His renal function improved, Renal ultrasound was without abnormalities. He was seen by oncology and was found to have iron deficiency anemia, he was started on IV iron. He was noted to have a significant murmur and echo was ordered which showed severe aortic stenosis. Cardiology was consulted and recommended further outpatient follow-up. He underwent EGD and colonoscopy on 12/12/21 which demonstrated severe diverticulosis as well as gastritis. He was ordered with diet and continued to progress well. He did not have any episodes of bleeding after colonoscopy. He was determined stable for discharge home. His blood pressure was low normal despite his lisinopril being held on admission. He was determined he no longer requires this medication with his severe aortic stenosis. Follow-up: Dr. Martino and Dr. Cross next week, started on Protonix for his gastritis. He was also told to add fiber supplement to ensure regular bowel movements. Patient seen and examined at bedside. Denies any chest pain, shortness of breath, nausea, vomiting. Eating and drinking well. We went over his discharge instructions for [place] and patient did not have any questions. Vital signs reviewed and stable. General: nontoxic, no distress, appears at stated age Derm: warm, dry Head: atraumatic, normocephalic, symmetric Eyes: EOMI, no lid lag, anicteric sclera Mouth: no lip lesion, mucus membranes moist Cardiovascular: S1S2 reg, with grade 4 murmur, positive posterior tibial pulse bilateral, Lungs: CTA bilateral, no rhonchi, no rales , no accessory muscle use Abdominal: soft, nontender to palpation, no guarding, no appreciable organomegaly Ext: no gross muscle atrophy, no edema, no contractures Neuro: CN II-XI grossly intact, no focal neuro deficits Psych: Alert, oriented, appropriate affect A total of 35 minutes of time were spent preparing this complex discharge summary. Patient was discharged on 12/13/21. Patient Condition at Discharge: Stable Plan - Discharge Summary Discharge Rx Participant: No New Discharge Prescriptions: New Pantoprazole [Protonix] 40 mg PO DAILY #30 tab Ferrous Sulfate [Slow Release Iron] 142 mg PO DAILY #30 tab Continue metFORMIN HCL [Glucophage] 500 mg PO BID Pravastatin Sodium [Pravachol] 40 mg PO HS Oxybutynin Chloride [Ditropan] 5 mg PO TID Testosterone Cypionate [Depo-Testosterone] 200 mg IM Q10D Marble-3/Dha/Epa/Fish Oil [Fish Oil 1,000 mg Softgel] 1 cap PO TID Multivitamins, Thera [Multivitamin (formulary)] 1 tab PO DAILY Aspirin EC [Ecotrin Low Dose] 81 mg PO DAILY Discontinued lisinopriL 40 mg PO DAILY Discharge Medication List Aspirin EC [Ecotrin Low Dose] 81 mg PO DAILY 12/10/21 [History] Multivitamins, Thera [Multivitamin (formulary)] 1 tab PO DAILY 12/10/21 [History] Marble-3/Dha/Epa/Fish Oil [Fish Oil 1,000 mg Softgel] 1 cap PO TID 12/10/21 [History] Oxybutynin Chloride [Ditropan] 5 mg PO TID 12/10/21 [History] Pravastatin Sodium [Pravachol] 40 mg PO HS 12/10/21 [History] Testosterone Cypionate [Depo-Testosterone] 200 mg IM Q10D 12/10/21 [History] metFORMIN HCL [Glucophage] 500 mg PO BID 12/10/21 [History] Ferrous Sulfate [Slow Release Iron] 142 mg PO DAILY #30 tab 12/13/21 [Rx] Pantoprazole [Protonix] 40 mg PO DAILY #30 tab 12/13/21 [Rx] Follow up Appointment(s)/Referral(s): Jorge Adorno MD [STAFF PHYSICIAN] - 12/27/21 9:15 am Randy Nash DO [STAFF PHYSICIAN] - 12/25/21 1:15 pm None,Stated [Primary Care Provider] - 1-2 days Lui Cross DO [Doctor of Osteopathic Medicine] - 12/17/21 5:20 pm Luciano Sullivan MD [STAFF PHYSICIAN] - 1 Week Patient Instructions/Handouts: Gastrointestinal Bleeding (IP), Iron Deficiency Anemia (GEN) Activity/Diet/Wound Care/Special Instructions: Activity: As tolerated Diet: Heart healthy, consistent carbohydrate Special Instructions: Take a fiber supplement daily with a goal of having daily bowel movements. Consider something such as MiraLAX or a fiber gummy. If you not had a bowel movement in 48 hours please take 1 capful of MiraLAX Continue to hold aspirin for the next 5 days and then resume your aspirin 81 mg your colonoscopy found to have severe diverticulosis causing a diverticular bleed. You also have mild gastritis and we recommend protonix daily for the next 30 days. We have been diagnosed with severe aortic stenosis. This is what is causing her heart murmur. Please ensure that you follow up with cardiology. Lisinopril has been stopped at this time due to low blood pressures. We do suggest that you have a CBC obtained with Dr. Cross next week. Please bring this sheet to your outpatient appointments. Discharge Disposition: HOME SELF-CARE
--- NOTE | 2021-12-13 13:29 | P.PN ---
Subjective Progress Note Date: 12/13/21 Principal diagnosis: Acute GI bleeding This is a 76-year-old white male with history of diabetes, hypertension, dyslipidemia, patient presented to the ER yesterday with 2 days history of bright red blood per rectum. Upon evaluation in the ER, patient was noted to be a bit tachycardic, blood pressure was 66/42, and his hemoglobin was 8.8. Patient received 1 L of fluid boluses, he also received a unit of packed RBCs, admitted to the ICU, and this consult was initiated. General surgery was consulted, patient is supposed to undergo colonoscopy sometime later today. Supposedly the patient had his last colonoscopy was 7 years ago. And it was supposedly normal. Patient is known to have history of polycythemia and he normally sees the business education professor for his polycythemia, typically undergoes phlebotomy on a regular basis for his elevated hemoglobin and hematocrit. Patient has been taking recently significant amount of ibuprofen for dental pain as he had recent teeth extractions. Patient denies any denies any lightheadedness, denies any chest pain. He also denies fever or chills. Hemoglobin on his initial presentation was 8.8. Today hemoglobin is 7.3 however he did receive a unit of packed RBCs since admission. Patient is now on IV fluids at 50 mL per hour, is also on pantoprazole at 40 mg IV push twice a day. Patient is also receiving for a ferric gluconate. On admission the patient was noted to have acute kidney injury with creatinine of 3.30 and today it is 2.11, patient is normally on metformin for diabetes. This is being addressed by nephrology on the case. Reevaluated today on 12/12/2021, patient remains in the ICU, had further GI blood loss, and the patient received another unit of packed RBCs, he received so far total of 2 units of packed RBCs since admission. Patient was seen by cardiology, echocardiogram revealed severe aortic stenosis, with peak velocity of 524 m/s, and peak gradient of 110 mm mean gradient is 67. Patient is being considered for eventual taVR in the future patient was cleared for GI workup/colonoscopy, although he is considered relatively high risk. Patient tells me today that he had chronic shortness of breath, able to walk a few blocks, and he had 1 episode of syncope many years ago. Patient remains on room air, in no distress, hemoglobin today is 7.3, it was 8.2 yesterday. Electrolytes are normal renal profile is improving creatinine is 1.38, hemodynamically the patient is stable Reevaluated today on 12/13/2021, patient is doing great, he is now on medical floor, no further episodes of GI bleeding, EGD and contrast report was noted otherwise in the patient had severe diverticulosis and S2 most likely source of the bleeding/GI bleeding. Hemodynamically the patient is stable, patient will need to have follow-up on outpatient basis with cardiology regarding his aortic stenosis. From my perspective the patient could be considered for discharge planning if cleared by other consultants on the case Objective - Vital Signs Vital signs: Vital Signs Temp 97.8 F 12/13/21 11:28 Pulse 96 12/13/21 11:28 Resp 16 12/13/21 11:28 BP 108/67 12/13/21 11:28 Pulse Ox 95 12/13/21 08:00 FiO2 Intake & Output 12/12/21 12/13/21 12/13/21 18:59 06:59 18:59 Intake Total 950 358 Output Total 970 Balance -20 358 Intake: IV 950 0.9 600 Desmopressin Acetate 24 50 mcg In Sodium Chloride 0. 9% 50 ml @ 200 mls/hr IVPB ONCE ONE Rx#: [id number] Sodium Ferric Gluconat- 100 Sucrose 125 mg In Sodium Chloride 0.9% 100 ml @ 100 mls/hr IVPB DAILY [facility] Rx#:[id number] Oral 358 Output: Urine 970 Other: Voiding Method Toilet Toilet Toilet Bedside Commode Urinal Urinal Urinal # Voids 0 - Exam Physical Exam: Revealed 76-year-old white male in no distress, on room air. HEENT:[Neck is supple.] [No neck masses.] [No thyromegaly.] [No JVD.], Moist mucous membranes Chest: Symmetrical chest expansion diminished breath sounds at the bases no crackles or rhonchi or wheezes Cardiac Exam: Normal S1 and S2, 3/6 systolic ejection murmur thought the precordium Abdomen: [Soft, nontender, no megaly, no rebound, no guarding, normal bowel sounds.] Extremities: [No clubbing, no edema, no cyanosis.] Neurological Exam: [No focal neurologic deficit.] Alert and oriented 3. Psychiatric: Normal mood affect and normal mental status examination. Skin: No rashes - Labs CBC & Chem 7: 12/13/21 08:15 12/13/21 08:15 Labs: Abnormal Lab Results - Last 24 Hours (Table) 12/10/21 12/12/21 12/12/21 Range/Units 13:30 15:55 16:16 RBC 3.07 L (4.30-5.90) m/uL Hgb 7.7 L (13.0-17.5) gm/dL Hct 24.9 L (39.0-53.0) % MCH 24.9 L (25.0-35.0) pg MCHC 30.7 L (31.0-37.0) g/dL RDW 19.9 H (11.5-15.5) % Pathologist Review See comment A BUN (9-20) mg/dL Creatinine (0.66-1.25) mg/dL Glucose (74-99) mg/dL POC Glucose (mg/dL) 142 H (70-110) mg/dL Calcium (8.4-10.2) mg/dL 12/12/21 12/13/21 12/13/21 Range/Units 20:26 05:51 08:15 RBC 3.09 L (4.30-5.90) m/uL Hgb 7.7 L (13.0-17.5) gm/dL Hct 25.6 L (39.0-53.0) % MCH (25.0-35.0) pg MCHC 30.3 L (31.0-37.0) g/dL RDW 20.3 H (11.5-15.5) % Pathologist Review BUN (9-20) mg/dL Creatinine (0.66-1.25) mg/dL Glucose (74-99) mg/dL POC Glucose (mg/dL) 150 H 146 H (70-110) mg/dL Calcium (8.4-10.2) mg/dL 12/13/21 12/13/21 Range/Units 08:15 11:30 RBC (4.30-5.90) m/uL Hgb (13.0-17.5) gm/dL Hct (39.0-53.0) % MCH (25.0-35.0) pg MCHC (31.0-37.0) g/dL RDW (11.5-15.5) % Pathologist Review BUN 24 H (9-20) mg/dL Creatinine 1.36 H (0.66-1.25) mg/dL Glucose 114 H (74-99) mg/dL POC Glucose (mg/dL) 155 H (70-110) mg/dL Calcium 8.3 L (8.4-10.2) mg/dL Assessment and Plan Assessment: Impression: Acute GI bleeding, most likely secondary to diverticular disease. No active bleeding at present Nonsteroidal anti-inflammatory drugs use History of polycythemia Acute kidney injury, diuretics, KYLE inhibitor and metformin are presently on hold, renal status is improving and creatinine seems to be coming down. Type 2 diabetes Benign essential hypertension Severe aortic stenosis as noted on echocardiogram, may eventually require valve replacement Recommendation: Continue Protonix EGD and colonoscopy findings were reviewed Agree with discharge planning if cleared by other consultants Time with Patient: Less than 30
== END 2021-12-13 14:15 | disposition home or self-care (01) | DRG 378 ==
LOC: EC 10:20 → 5NMEDONC 12:56 → 3SCARD 13:05 → 2SICU 23:24 → 3SCARD 12-12 18:43
PROVIDERS: ADMIT Internal Medicine; ATTEND Internal Medicine
PROC: 30233N1 Transfusion of Nonautologous Red Blood Cells into Peripheral Vein, Percutaneous Approach (ICD-10-PCS; principal; 2021-12-10)
PROC: 05HF33Z Insertion of Infusion Device into Left Cephalic Vein, Percutaneous Approach (ICD-10-PCS; 2021-12-11)
PROC: 0DB78ZX Excision of Stomach, Pylorus, Via Natural or Artificial Opening Endoscopic, Diagnostic (ICD-10-PCS; 2021-12-12 10:40)
PROC: 0DJD8ZZ Inspection of Lower Intestinal Tract, Via Natural or Artificial Opening Endoscopic (ICD-10-PCS; 2021-12-12 10:40)
DX: K57.31 Diverticulosis of large intestine without perforation or abscess with bleeding (principal); D62 Acute posthemorrhagic anemia; N17.9 Acute kidney failure, unspecified; E87.2 Acidosis; I50.32 Chronic diastolic (congestive) heart failure; D51.9 Vitamin B12 deficiency anemia, unspecified; I11.0 Hypertensive heart disease with heart failure; I95.9 Hypotension, unspecified; D45 Polycythemia vera; E11.9 Type 2 diabetes mellitus without complications; K29.70 Gastritis, unspecified, without bleeding; K64.4 Residual hemorrhoidal skin tags; I35.0 Nonrheumatic aortic (valve) stenosis; E78.5 Hyperlipidemia, unspecified; G47.00 Insomnia, unspecified; G89.29 Other chronic pain; M47.9 Spondylosis, unspecified; Z79.82 Long term (current) use of aspirin; Z79.84 Long term (current) use of oral hypoglycemic drugs; Z79.890 Hormone replacement therapy; Z79.899 Other long term (current) drug therapy; Z86.010 Personal history of colon polyps; Z87.891 Personal history of nicotine dependence; Z80.0 Family history of malignant neoplasm of digestive organs
CPT/HCPCS: 36410; 36415; 43239; 45378; 76770; 76937; 80048; 80053; 81003; 82533; 82607; 82728; 82746; 82784; 83010; 83540; 83550; 83615; 83735; 83883; 83921; 84165; 84484; 85025; 85027; 85045; 85384; 85610; 85730; 86334; 86850; 86900; 86901; 86920; 88305; 93306; 96361; 96374; 99285

== ENCOUNTER → 2022-01-01 | Outpatient (CLI) | payer MEDICARE ==
[2022-01-01 22:50] LABS: HGB 8.4 g/dL (13.0-17.0); MCH 22.2 pg (27.0-32.0); MCHC 27.1 g/dL (32.0-37.0); MCV 81.8 fL (80.0-97.0); Mean Platelet Volume 9.9 fL (9.5-12.2); NRBC Per 100 WBC 0 /100 WBCS (0.0-0.0); Platelet Count 229 X 10*3/uL (140-440); RBC 3.79 X 10*6/uL (4.40-5.60); RDW 20.2 % (11.5-14.5); WBC 5.73 X 10*3/uL (4.50-10.00)
[2022-01-02 01:52] LABS: African American GFR (CKD) 74.7 (60.0-200.0); Anion Gap 12.9 mmol/L (10.00-18.00); Blood Urea Nitrogen 22.6 mg/dL (9.0-27.0); Carbon Dioxide 23.1 mmol/L (20.0-27.5); Non-African American GFR(CKD) 64.4 (60.0-200.0); Potassium 4.6 mmol/L (3.5-5.5)
== END | disposition home or self-care (01) ==
LOC: LABPAT 14:28
PROVIDERS: ATTEND Internal Medicine
DX: Z01.812 Encounter for preprocedural laboratory examination (principal); I35.0 Nonrheumatic aortic (valve) stenosis
CPT/HCPCS: 80051; 82565; 84520; 85027

== ENCOUNTER → 2022-01-08 | Outpatient (CLI) | payer MEDICARE ==
[~2022-01-08] MED LIST changes: +IRON SUCROSE 300 MG in SODIUM CHLORIDE 0.9% 250 ML IVPB NR; -REGADENOSON 0.4 MG/5 ML SYRINGE IV ONE; +SODIUM CHLORIDE 0.9% 500 ML 500 ML in EMPTY BAG 1 BAG IV PRN
[2022-01-08 10:35] VITALS: TEMP 98.3
[2022-01-08 14:21] VITALS: BP 124/77; PULSE 81; RESP 18
== END ==
LOC: PROCWHC3 10:07
PROVIDERS: ATTEND Internal Medicine Hematology & Oncology
DX: D60.9 Acquired pure red cell aplasia, unspecified (principal)
CPT/HCPCS: 96365; 96366; 99195; 36415; J1756

== ENCOUNTER 2022-02-12 14:32 | Inpatient (IN) | payer MEDICARE ==
[2022-02-12] MEDS ORDERED: PANTOPRAZOLE 40 MG/10 ML VIAL IVP STA (15:29)
[2022-02-12] MEDS ORDERED: ONDANSETRON 4 MG/2 ML VIAL IVP STA (15:29)
[2022-02-12] MEDS ORDERED: MORPHINE SULFATE 4 MG/ML SYRINGE IV STA (15:29)
--- NOTE | 2022-02-12 15:44 | ED ---
General Adult HPI - General Chief complaint: Abdominal Pain Stated complaint: abd issues Time Seen by Provider: 02/12/22 15:13 Source: patient, EMS, RN notes reviewed, old records reviewed Mode of arrival: EMS Limitations: no limitations - History of Present Illness Initial comments: Patient is a 76-year-old male who presents emergency Department complaining of multiple complaints. Has history diabetes, hypertension, aortic stenosis, chf. Recently had a surgical resection of colon secondary to bleeding diverticulitis. Is not on blood thinners per family. Presents over concern for some mild confusion, worsening abdominal pain. States the pain is at the source of the incision. States is a small amount of clear, yellowish discharge. Followed up with Dr. Sullivan, his surgeon last week and isamar removed. Incision he was told looked good. Denies fevers. Is more slow to respond per family. He did fall on Thursday secondary to weakness. Has been more weak since Thursday or Thursday. Has not had a bowel movement in the last 2-3 days. No urinary complaints. Has been having chronic shortness of breath that has been worsening as well. Was started on oxygen while at [facility]. Has lower extremity edema. Is on Lasix but does not seem to be helping much. Shortness of breath has been progressively worsening. Lower extremity edema also has been progressively worsening bilateral lower extremities. He denies chest pain. He denies nausea or vomiting. No known sick contacts. Presents for further evaluation at this time. Patient's daughter is at bedside and helps with history taking. Is not on blood thinners. Endorses mild orthopnea. Denies PND. Endorses exertional dyspnea. Endorses lower extremity edema.Symptoms started on Thursday or Thursday evening. It is currently Thursday. - Related Data Home Medications Medication Instructions Recorded Confirmed Aspirin EC [Ecotrin Low Dose] 81 mg PO HS 12/10/21 02/12/22 Multivitamins, Thera [Multivitamin 1 tab PO HS 12/10/21 02/12/22 (formulary)] [place]-3/Dha/Epa/Fish Oil [Fish Oil 1 cap PO HS 12/10/21 02/12/22 1,000 mg Softgel] Oxybutynin Chloride [Ditropan] 5 mg PO BID 12/10/21 02/12/22 Pravastatin Sodium [Pravachol] 40 mg PO HS@199912/10/21 02/12/22 Testosterone Cypionate 200 mg IM Q10D 12/10/21 02/12/22 [Depo-Testosterone] metFORMIN HCL [Glucophage] 500 mg PO BID 12/10/21 02/12/22 Acetaminophen Tab [Tylenol Tab] 1,000 mg PO Q6H PRN 02/12/22 02/12/22 Ferrocite 324mg 1 tab PO HS 02/12/22 02/12/22 Furosemide [Lasix] 40 mg PO DAILY 02/12/22 02/12/22 Healthshake 1 dose PO BID@0800,1600 02/12/22 02/12/22 Melatonin 3 mg PO HS PRN 02/12/22 02/12/22 Psyllium Husk 100% [Metamucil 1 tbsp PO DAILY 02/12/22 02/12/22 Packet] Previous Rx's Medication Instructions Recorded Pantoprazole [Protonix] 40 mg PO DAILY #30 tab 12/13/21 Allergies Allergy/AdvReac Type Severity Reaction Status Date / Time No Known Allergies Allergy Verified 02/12/22 16:03 Review of Systems ROS Statement: Those systems with pertinent positive or pertinent negative responses have been documented in the HPI. Review of Systems: CONST: Denies fever EYES: Denies blurry vision ENT: Denies nasal congestion C/V: Denies Chest pain RESP: Endorses progressively worsening shortness of breath. GI: Endorses abdominal pain : Denies dysuria SKIN: Denies rash. MSK: Denies joint pain. NEURO: Denies headache ROS Other: All systems not noted in ROS Statement are negative. Past Medical History Past Medical History: Blood Disorder, Diabetes Mellitus, Hyperlipidemia, Hypertension Additional Past Medical History / Comment(s): Past rectal bleeds, polycythemia, NIDDM, recently had lower 5 teeth extracted, R lower leg edema, heart murmur, DDD with occasional back pain. History of Any Multi-Drug Resistant Organisms: None Reported Past Surgical History: Bowel Resection, Tonsillectomy Additional Past Surgical History / Comment(s): Colonoscopies, bilateral cataract removals/lens implants, R mastoid surgery at age 4 yrs. Past Anesthesia/Blood Transfusion Reactions: No Reported Reaction Past Psychological History: No Psychological Hx Reported Smoking Status: Former smoker Past Alcohol Use History: None Reported Past Drug Use History: None Reported - Past Family History Father History Unknown: Yes Family Medical History: No Reported History Additional Family Medical History / Comment(s): Father was healthy and lived into his 90s. Mother History Unknown: Yes General Exam - General Exam Comments Initial Comments: General: Appears in no acute distress. HEAD: Normal with no signs of head trauma. EYES: PERRLA, EOMI, conjunctiva normal, no discharge. ENT: Hearing grossly intact, normal oropharynx. RESPIRATORY: Clear breath sounds bilaterally. No wheezes, rales, or rhonchi. Hypoxic to 90% on room air. C/V: Mildly tachycardic with a regular rhythm. S1 and S2 auscultated. Peripheral pulses 2+ and intact. 2+ pitting edema up to the level of the bilateral knees. ABD: Abdomen is soft, nondistended. Tender to palpation around the surgical site. Surgical site does have mild amount of yellowish, clear discharge. EXT: Normal range of motion, no obvious deformity SKIN: No rashes or lesions observed on exposed skin. NEURO: Alert and oriented 3. Slightly slow to respond to questions. NIH of 0. GCS is 15. Limitations: no limitations Course Vital Signs 02/12/22 02/12/22 02/12/22 14:35 16:19 17:25 Temperature 96.6 F L 97.6 F 98.2 F Pulse Rate 107 H 103 H 101 H Respiratory 20 20 16 Rate Blood Pressure 105/70 112/70 94/62 O2 Sat by Pulse 98 98 98 Oximetry Fraction of Inspired Oxygen (FIO2) 02/12/22 02/12/22 02/12/22 18:44 19:17 19:20 Temperature 98.1 F Pulse Rate 103 H 104 H 102 H Respiratory 16 36 H 32 H Rate Blood Pressure 98/58 89/57 90/60 O2 Sat by Pulse 99 90 L 93 L Oximetry Fraction of 80 Inspired Oxygen (FIO2) 02/12/22 02/12/22 19:30 19:37 Temperature Pulse Rate 101 H Respiratory Rate Blood Pressure 101/65 O2 Sat by Pulse 96 Oximetry Fraction of 65 Inspired Oxygen (FIO2) Medical Decision Making - Medical Decision Making Based on the patient's presentation and physical exam, I'm concerned for possib le abdominal pathology for the patient's current symptoms. This includes infection. Also appears to be having a mild CHF exacerbation at this time. He is on Lasix but is lower extremity edema, worsening exertional dyspnea that has been progressive, as well as orthopnea. We will obtain cardiac workup in addition to infectious workup. CT brain will be obtained for the confusion as well as CT abdomen and pelvis. Chest x-ray and Covid swab will be obtained. Patient was in agreement with this plan. Vital signs remarkable for mild tachycardia at this time.Patient is saturating well on 4-5 L nasal cannula. EKG shows no signs of acute ischemia. Chest x-ray is remarkable for pulmonary vascular congestion with suspected bilateral pleural effusions. Brain CT showed no acute intracranial process. CT abdomen and pelvis showed no signs of infectious etiology knee abdomen. There is a small amount of ascites. There are moderate-sized right and small left pleural effusions. There is also signs concerning for constipation. No other findings. Laboratory studies are remarkable for a chronic anemia with a hemoglobin of 8.6. Patient has a mildly elevated potassium of 5.3, slightly elevated troponin of 0.053 likely secondary to heart failure exacerbation due to the chest x-ray findings as well as elevated BNP of 11,000. Urinalysis is remarkable for a large amount of blood. No signs of infection at this time. This was likely secondary to Palmer catheter placement. Covid is negative. I was notified by nursing staff prior to receiving laboratory studies and imaging with the patient was slightly more unresponsive at this time. Based on workup, I am concerned for hypercarbia as the cause of his altered mental status. VBG was ordered and sent. It did confirm my suspicions, with patient's pCO2, venous of 78. Patient is a respiratory acidosis secondary to this. Patient was immediately placed on BiPAP prior to receiving the results of the venous blood gas. We will continue to monitor his mental status. Seems to be tolerating the BiPAP at this time. Is arousable on stimulation. CT imaging did take a long time due to down time to obtain reads. I did finally update the patient's daughter who is at bedside the results of his entire workup. Patient will be admitted to the hospital, to cardiac stepdown for his hypercarbic hypoxic respiratory failure likely secondary to CHF exacerbation, pleural effusions requiring noninvasive positive pressure ventilation. Patient was started on Zosyn due to the discharge from his wound. Wound cultures and blood cultures are sent. We will consult his surgeon, Dr. Sullivan for evaluation tomorrow. Cardiology was also consulted. Pulmonology Dr. interiano is also consulted. The patient's family was in agreement with this plan. I spoke with the admitting physician, Dr. Espinoza who was in agreement the plan as well. Patient was admitted in serious condition to stepdown. Echo is pending. Lasix is ordered. - Lab Data Result diagrams: 02/12/22 15:58 02/12/22 15:58 Lab Results 02/12/22 02/12/22 02/12/22 Range/Units 15:58 15:58 15:58 WBC (3.8-10.6) k/uL RBC (4.30-5.90) m/uL Hgb (13.0-17.5) gm/dL Hct (39.0-53.0) % MCV (80.0-100.0) fL MCH (25.0-35.0) pg MCHC (31.0-37.0) g/dL RDW (11.5-15.5) % Plt Count (150-450) k/uL MPV Neutrophils % (Manual) % Lymphocytes % (Manual) % Monocytes % (Manual) % Eosinophils % (Manual) % Neutrophils # Neutrophils # (Manual) (1.3-7.7) k/uL Lymphocytes # (Manual) (1.0-4.8) k/uL Monocytes # (Manual) (0-1.0) k/uL Eosinophils # (Manual) (0-0.7) k/uL Nucleated RBCs (0-0) /100 WBC Manual Slide Review Polychromasia Hypochromasia Poikilocytosis Anisocytosis Ovalocytes Stomatocytes PT (9.0-12.0) sec INR (<1.2) APTT (22.0-30.0) sec VBG pH (7.31-7.41) VBG pCO2 (37-51) mmHg VBG HCO3 (24-28) mmol/L Sodium (137-145) mmol/L Potassium (3.5-5.1) mmol/L Chloride (98-107) mmol/L Carbon Dioxide (22-30) mmol/L Anion Gap mmol/L BUN (9-20) mg/dL Creatinine (0.66-1.25) mg/dL Est GFR (CKD-EPI)AfAm (>60 ml/min/1.73 sqM) Est GFR (CKD-EPI)NonAf (>60 ml/min/1.73 sqM) Glucose (74-99) mg/dL POC Glucose (mg/dL) (70-110) mg/dL POC Glu Auto Glass Installer ID Plasma Lactic Acid Marlon 1.6 (0.7-2.0) mmol/L Calcium (8.4-10.2) mg/dL Total Bilirubin (0.2-1.3) mg/dL AST (17-59) U/L ALT (4-49) U/L Alkaline Phosphatase (38-126) U/L Ammonia 13 (<30) umol/L Troponin I 0.053 H* (0.000-0.034) ng/mL NT-Pro-B Natriuret Pep 03173 pg/mL Total Protein (6.3-8.2) g/dL Albumin (3.5-5.0) g/dL Amylase (30-110) U/L Lipase (23-300) U/L Urine Color Urine Appearance (Clear) Urine pH (5.0-8.0) Ur Specific [place] (1.001-1.035) Urine Protein (Negative) Urine Glucose (UA) (Negative) Urine Ketones (Negative) Urine Blood (Negative) Urine Nitrite (Negative) Urine Bilirubin (Negative) Urine Urobilinogen (<2.0) mg/dL Ur Leukocyte Esterase (Negative) Urine RBC (0-5) /hpf Urine WBC (0-5) /hpf Hyaline Casts (0-2) /lpf Urine Mucus (None) /hpf Coronavirus (PCR) (Not Detectd) 02/12/22 02/12/22 02/12/22 Range/Units 15:58 15:58 15:58 WBC 7.7 (3.8-10.6) k/uL RBC 3.70 L (4.30-5.90) m/uL Hgb 8.6 L (13.0-17.5) gm/dL Hct 31.1 L (39.0-53.0) % MCV 84.0 (80.0-100.0) fL MCH 23.3 L (25.0-35.0) pg MCHC 27.8 L (31.0-37.0) g/dL RDW 18.2 H (11.5-15.5) % Plt Count 472 H (150-450) k/uL MPV 7.0 Neutrophils % (Manual) 78 % Lymphocytes % (Manual) 11 % Monocytes % (Manual) 10 % Eosinophils % (Manual) 1 % Neutrophils # IN [employer]OR Neutrophils # (Manual) 6.01 (1.3-7.7) k/uL Lymphocytes # (Manual) 0.85 L (1.0-4.8) k/uL Monocytes # (Manual) 0.77 (0-1.0) k/uL Eosinophils # (Manual) 0.08 (0-0.7) k/uL Nucleated RBCs 0 (0-0) /100 WBC Manual Slide Review Performed Polychromasia Present Hypochromasia Marked Poikilocytosis Slight Anisocytosis Slight Ovalocytes Present Stomatocytes Present PT (9.0-12.0) sec INR (<1.2) APTT (22.0-30.0) sec VBG pH (7.31-7.41) VBG pCO2 (37-51) mmHg VBG HCO3 (24-28) mmol/L Sodium 134 L (137-145) mmol/L Potassium 5.3 H (3.5-5.1) mmol/L Chloride 92 L (98-107) mmol/L Carbon Dioxide 29 (22-30) mmol/L Anion Gap 13 mmol/L BUN 48 H (9-20) mg/dL Creatinine 1.16 (0.66-1.25) mg/dL Est GFR (CKD-EPI)AfAm 70 (>60 ml/min/1.73 sqM) Est GFR (CKD-EPI)NonAf 61 (>60 ml/min/1.73 sqM) Glucose 138 H (74-99) mg/dL POC Glucose (mg/dL) (70-110) mg/dL POC Glu Auto Glass Installer ID Plasma Lactic Acid Marlon (0.7-2.0) mmol/L Calcium 9.0 (8.4-10.2) mg/dL Total Bilirubin 0.4 (0.2-1.3) mg/dL AST 21 (17-59) U/L ALT 10 (4-49) U/L Alkaline Phosphatase 85 (38-126) U/L Ammonia (<30) umol/L Troponin I (0.000-0.034) ng/mL NT-Pro-B Natriuret Pep pg/mL Total Protein 6.5 (6.3-8.2) g/dL Albumin 3.7 (3.5-5.0) g/dL Amylase 62 (30-110) U/L Lipase 326 H (23-300) U/L Urine Color Urine Appearance (Clear) Urine pH (5.0-8.0) Ur Specific [place] (1.001-1.035) Urine Protein (Negative) Urine Glucose (UA) (Negative) Urine Ketones (Negative) Urine Blood (Negative) Urine Nitrite (Negative) Urine Bilirubin (Negative) Urine Urobilinogen (<2.0) mg/dL Ur Leukocyte Esterase (Negative) Urine RBC (0-5) /hpf Urine WBC (0-5) /hpf Hyaline Casts (0-2) /lpf Urine Mucus (None) /hpf Coronavirus (PCR) Not Detected (Not Detectd) 02/12/22 02/12/22 02/12/22 Range/Units 15:58 18:00 18:20 WBC (3.8-10.6) k/uL RBC (4.30-5.90) m/uL Hgb (13.0-17.5) gm/dL Hct (39.0-53.0) % MCV (80.0-100.0) fL MCH (25.0-35.0) pg MCHC (31.0-37.0) g/dL RDW (11.5-15.5) % Plt Count (150-450) k/uL MPV Neutrophils % (Manual) % Lymphocytes % (Manual) % Monocytes % (Manual) % Eosinophils % (Manual) % Neutrophils # Neutrophils # (Manual) (1.3-7.7) k/uL Lymphocytes # (Manual) (1.0-4.8) k/uL Monocytes # (Manual) (0-1.0) k/uL Eosinophils # (Manual) (0-0.7) k/uL Nucleated RBCs (0-0) /100 WBC Manual Slide Review Polychromasia Hypochromasia Poikilocytosis Anisocytosis Ovalocytes Stomatocytes PT 11.0 (9.0-12.0) sec INR 1.0 (<1.2) APTT 23.3 (22.0-30.0) sec VBG pH 7.21 L (7.31-7.41) VBG pCO2 78 H* (37-51) mmHg VBG HCO3 31 H (24-28) mmol/L Sodium (137-145) mmol/L Potassium (3.5-5.1) mmol/L Chloride (98-107) mmol/L Carbon Dioxide (22-30) mmol/L Anion Gap mmol/L BUN (9-20) mg/dL Creatinine (0.66-1.25) mg/dL Est GFR (CKD-EPI)AfAm (>60 ml/min/1.73 sqM) Est GFR (CKD-EPI)NonAf (>60 ml/min/1.73 sqM) Glucose (74-99) mg/dL POC Glucose (mg/dL) 189 H (70-110) mg/dL POC Glu Auto Glass Installer ID Tania Pendleton Plasma Lactic Acid Marlon (0.7-2.0) mmol/L Calcium (8.4-10.2) mg/dL Total Bilirubin (0.2-1.3) mg/dL AST (17-59) U/L ALT (4-49) U/L Alkaline Phosphatase (38-126) U/L Ammonia (<30) umol/L Troponin I (0.000-0.034) ng/mL NT-Pro-B Natriuret Pep pg/mL Total Protein (6.3-8.2) g/dL Albumin (3.5-5.0) g/dL Amylase (30-110) U/L Lipase (23-300) U/L Urine Color Urine Appearance (Clear) Urine pH (5.0-8.0) Ur Specific [place] (1.001-1.035) Urine Protein (Negative) Urine Glucose (UA) (Negative) Urine Ketones (Negative) Urine Blood (Negative) Urine Nitrite (Negative) Urine Bilirubin (Negative) Urine Urobilinogen (<2.0) mg/dL Ur Leukocyte Esterase (Negative) Urine RBC (0-5) /hpf Urine WBC (0-5) /hpf Hyaline Casts (0-2) /lpf Urine Mucus (None) /hpf Coronavirus (PCR) (Not Detectd) 02/12/22 Range/Units 19:06 WBC (3.8-10.6) k/uL RBC (4.30-5.90) m/uL Hgb (13.0-17.5) gm/dL Hct (39.0-53.0) % MCV (80.0-100.0) fL MCH (25.0-35.0) pg MCHC (31.0-37.0) g/dL RDW (11.5-15.5) % Plt Count (150-450) k/uL MPV Neutrophils % (Manual) % Lymphocytes % (Manual) % Monocytes % (Manual) % Eosinophils % (Manual) % Neutrophils # Neutrophils # (Manual) (1.3-7.7) k/uL Lymphocytes # (Manual) (1.0-4.8) k/uL Monocytes # (Manual) (0-1.0) k/uL Eosinophils # (Manual) (0-0.7) k/uL Nucleated RBCs (0-0) /100 WBC Manual Slide Review Polychromasia Hypochromasia Poikilocytosis Anisocytosis Ovalocytes Stomatocytes PT (9.0-12.0) sec INR (<1.2) APTT (22.0-30.0) sec VBG pH (7.31-7.41) VBG pCO2 (37-51) mmHg VBG HCO3 (24-28) mmol/L Sodium (137-145) mmol/L Potassium (3.5-5.1) mmol/L Chloride (98-107) mmol/L Carbon Dioxide (22-30) mmol/L Anion Gap mmol/L BUN (9-20) mg/dL Creatinine (0.66-1.25) mg/dL Est GFR (CKD-EPI)AfAm (>60 ml/min/1.73 sqM) Est GFR (CKD-EPI)NonAf (>60 ml/min/1.73 sqM) Glucose (74-99) mg/dL POC Glucose (mg/dL) (70-110) mg/dL POC Glu Auto Glass Installer ID Plasma Lactic Acid Marlon (0.7-2.0) mmol/L Calcium (8.4-10.2) mg/dL Total Bilirubin (0.2-1.3) mg/dL AST (17-59) U/L ALT (4-49) U/L Alkaline Phosphatase (38-126) U/L Ammonia (<30) umol/L Troponin I (0.000-0.034) ng/mL NT-Pro-B Natriuret Pep pg/mL Total Protein (6.3-8.2) g/dL Albumin (3.5-5.0) g/dL Amylase (30-110) U/L Lipase (23-300) U/L Urine Color Yellow Urine Appearance Clear (Clear) Urine pH 5.0 (5.0-8.0) Ur Specific [place] 1.019 (1.001-1.035) Urine Protein Trace H (Negative) Urine Glucose (UA) Negative (Negative) Urine Ketones Negative (Negative) Urine Blood Large H (Negative) Urine Nitrite Negative (Negative) Urine Bilirubin Negative (Negative) Urine Urobilinogen <2.0 (<2.0) mg/dL Ur Leukocyte Esterase Trace H (Negative) Urine RBC 117 H (0-5) /hpf Urine WBC 3 (0-5) /hpf Hyaline Casts 10 H (0-2) /lpf Urine Mucus Rare H (None) /hpf Coronavirus (PCR) (Not Detectd) - EKG Data -: EKG Interpreted by Me EKG Comments: 12-lead Electrocardiogram Interpretation Note EKG was reviewed and interpreted by myself. 12-lead ECG performed at 1810 is interpreted by me as revealing normal sinus rhythm at a rate of 110 beats per minute. Woden is normal. MS intervals 145 ms, QRS duration is 144 ms, QTc is 405 ms. There are signs concerning for a right bundle-branch block. Seen on prior EKGs.. There were no ST or T wave abnormalities to suggest myocardial ischemia or injury. R wave progression across the precordium was satisfactory. By my interpretation this EKG is non-diagnostic for acute ischemia. Critical Care Time Critical Care Time: Yes Total Critical Care Time: 35 Critical Care Time: Upon my evaluation, this patient had a high probability of imminent or life- threatening deterioration due to hypercarbic hypoxic respiratory failure requiring noninvasive positive pressure ventilation, surgical wound infection, CO2 narcosis, which required my direct attention, intervention, and personal management. I have personally provided 35 minutes of critical care time exclusive of time spent on separately billable procedures. Time includes review of laboratory data, radiology results, discussion with consultants, and monitoring for potential decompensation. Interventions were performed as documented in my note. Disposition Clinical Impression: CHF exacerbation, Acute respiratory failure with hypoxia and hypercapnia, CO2 narcosis, Elevated troponin, BiPAP (biphasic positive airway pressure) dependence, Chronic anemia, Surgical wound infection Disposition: ADMITTED IP TO THIS HOSP Condition: Serious Time of Disposition: 19:20
[2022-02-12 16:11] LABS: Anisocytosis Slight; HCT 31.1 % (39.0-53.0); HGB 8.6 gm/dL (13.0-17.5); Hypochromasia Marked; MCH 23.3 pg (25.0-35.0); MCHC 27.8 g/dL (31.0-37.0); Platelet Count 472 k/uL (150-450); Poikilocytosis Slight; RDW 18.2 % (11.5-15.5); WBC 7.7 k/uL (3.8-10.6)
[2022-02-12 16:18] LABS: Albumin 3.7 g/dL (3.5-5.0); Potassium 5.3 mmol/L (3.5-5.1); Total Bilirubin 0.4 mg/dL (0.2-1.3); Total Protein 6.5 g/dL (6.3-8.2)
[2022-02-12 16:24] LABS: Lactic Acid, Venous 1.6 mmol/L (0.7-2.0)
[2022-02-12 16:31] LABS: Partial Thromboplastin Time 23.3 sec (22.0-30.0)
[2022-02-12 18:00] LABS: Eosinophils # (M) 0.08 k/uL (0-0.7); Lymphocytes # (M) 0.85 k/uL (1.0-4.8); Monocytes # (M) 0.77 k/uL (0-1.0); Neutrophils # (M) 6.01 k/uL (1.3-7.7); Neutrophils % (M) 78 %; Nucleated Red Blood Cells 0 /100 WBC (0-0); Polychromasia Present; Total Cells Counted 100
[2022-02-12 18:02] LABS: Ovalocytes Present; Stomatocytes Present
[2022-02-12] MEDS ORDERED: FUROSEMIDE 10 MG/ML 4 ML VIAL IV STA ×2 (18:22→21:57)
[2022-02-12 18:26] LABS: Glucose,Whole Blood 189 mg/dL (70-110)
--- NOTE | 2022-02-12 18:37 | CT ---
EXAM: CT Head Without Intravenous Contrast CLINICAL HISTORY: ITS. REASON CT Reason: confusion TECHNIQUE: Axial computed tomography images of the head/brain without intravenous contrast. CTDI is 49.1 mGy and DLP is 1145.4 mGy-cm. This CT exam was performed using one or more of the following dose reduction techniques: automated exposure control, adjustment of the mA and/or kV according to patient size, and/or use of iterative reconstruction technique. COMPARISON: No relevant prior studies available. FINDINGS: There is no intracranial hemorrhage or mass-effect. Chronic and age- indeterminate bilateral basal ganglia lacunar infarcts. Involutional and microvascular ischemic changes. Atherosclerosis of skull base arteries. The calvarium is intact. Right mastoidectomy. Mild frontoethmoidal sinus mucosal thickening. Ocular lens prostheses. IMPRESSION: Chronic and age-indeterminate bilateral basal ganglia lacunar infarcts. No intracranial hemorrhage or mass-effect.
[2022-02-12 19:00] LABS: VBG PH 7.21 (7.31-7.41)
[2022-02-12] MEDS ORDERED: SODIUM CHLORIDE 0.9% 500 ML 250 ML IV ONE (19:24)
--- NOTE | 2022-02-12 19:32 | CT ---
EXAM: CT Abdomen and Pelvis With Intravenous Contrast CLINICAL HISTORY: ITS. REASON CT Reason: abd pain TECHNIQUE: Axial computed tomography images of the abdomen and pelvis with intravenous contrast. CTDI is 41.3 mGy and DLP is 2037.9 mGy-cm. This CT exam was performed using one or more of the following dose reduction techniques: automated exposure control, adjustment of the mA and/or kV according to patient size, and/or use of iterative reconstruction technique. COMPARISON: No relevant prior studies available. FINDINGS: Moderate right and small left pleural effusions with associated compressive atelectasis. Cardiomegaly. Extensive mitral valve calcification. Gallbladder distention may simply reflect fasting state. No radiopaque stone or pericholecystic inflammatory change. The liver, pancreas, spleen, and adrenal glands are within normal limits. Renal atrophy with nonspecific perinephric stranding. No hydronephrosis. Fecal retention proximally as well as distally. Intact sigmoid colonic anastomosis. No clear small bowel obstruction. No perforation. The appendix is unremarkable. Small volume ascites, predominantly collecting in the dependent left paracolic gutter. No clearly loculated abscess. Prostatomegaly without pathologic urinary bladder distention. Aortoiliac atherosclerosis without aneurysm fatty inguinal hernias, left larger than right. Hip degeneration, left greater than right. Left protrusio acetabuli. Lumbar spondylosis. Thoracic hyperostosis. No fracture. IMPRESSION: Multifocal fecal retention. No visualized obstructing mass. Correlate for constipation. Intact sigmoid colonic anastomosis. Small volume ascites, primarily collecting in the dependent left paracolic gutter. No loculated abscess. Moderate right and small left pleural effusions causing compressive atelectasis. Cardiomegaly. Incidental findings as detailed above.
[2022-02-12] MEDS ORDERED: ONDANSETRON 4 MG/2 ML VIAL IVP PRN (19:38)
[2022-02-12] MEDS ORDERED: NALOXONE 0.4 MG/ML 1 ML VIAL IV PRN (19:38)
[2022-02-12 19:52] LABS: Appearance,Urine Clear (Clear); Bilirubin,Urine Negative (Negative); Blood,Urine Large (Negative); Color,Urine Yellow; Glucose,Urine (UA) Negative (Negative); Hyaline Casts,Urine 10 /lpf (0-2); Ketones,Urine Negative (Negative); Leukocyte Esterase,Urine Trace (Negative); Mucus,Urine Rare /hpf; Nitrite,Urine Negative (Negative); Protein,Urine Trace (Negative); RBC,Urine 117 /hpf (0-5); Specific Gravity,Urine 1.019 (1.001-1.035); Urobilinogen,Urine <2.0 mg/dL (<2.0); WBC,Urine 3 /hpf (0-5)
--- NOTE | 2022-02-12 19:59 | XR ---
EXAM: XR Chest, 2 Views CLINICAL HISTORY: ITS. REASON XR Reason: confusion TECHNIQUE: Frontal and lateral views of the chest. COMPARISON: CT abdomen and pelvis of same date FINDINGS/impression: As noted on CT, there are moderate right and small left pleural effusions with associated compressive atelectasis. Upper lobe opacities could reflect infectious infiltrates. Cardiomegaly. Mild vascular congestion.
[2022-02-12] MEDS ORDERED: PIPERACILLIN-TAZOBACTAM 3.375 GM in SODIUM CHLORIDE 0.9% 100 ML IVPB SCH (20:00)
[2022-02-12] MEDS ORDERED: FUROSEMIDE 10 MG/ML 4 ML VIAL IV SCH (21:00)
[2022-02-12] MEDS ORDERED: metFORMIN 500 MG TAB PO SCH (21:00)
[2022-02-12 21:05] LABS: VBG PH 7.19 (7.31-7.41)
[2022-02-12 22:06] LABS: ABG Base Excess 2.2 mmol/L; ABG HCO3 30 mmol/L (21-25); ABG Hematocrit 27 % (34.0-46.0); ABG PH 7.23 (7.35-7.45); ABG PO2 100 mmHg (83-108); ABG TCO2 32 mmol/L (19-24); Allen Test Performed? Yes
[2022-02-12 22:13] LABS: ABG PCO2 72 mmHg (35-45)
[2022-02-12 22:42] LABS: Glucose,Whole Blood 234 mg/dL (70-110)
[2022-02-12] MEDS: ASPIRIN 81 MG PO SCH (22:53)
[2022-02-12] MEDS: OXYBUTYNIN CHLORIDE 5 MG TAB PO SCH (22:53)
[2022-02-12 23:36] LABS: Allen Test Performed? Yes
[2022-02-12 23:51] LABS: ABG Base Excess 1.9 mmol/L; ABG HCO3 31 mmol/L (21-25); ABG Hematocrit 26 % (34.0-46.0); ABG Oxygen Saturation 98.8 % (94-97); ABG PO2 127 mmHg (83-108); ABG TCO2 34 mmol/L (19-24)
[2022-02-12 23:54] LABS: ABG PCO2 92 mmHg (35-45); ABG PH 7.14 (7.35-7.45)
[2022-02-13] MEDS ORDERED: ETOMIDATE 2 MG/ML 10 ML VIAL ONE (00:35)
[2022-02-13] MEDS ORDERED: PHENYLEPHRINE 10 MG/ML VIAL ONE (00:35)
[2022-02-13] MEDS ORDERED: SODIUM CHLORIDE 0.9% 1,000 ML IV ONE ×2 (00:53→01:24)
[2022-02-13] MEDS ORDERED: VANCOMYCIN IV PER PHARMACY 1 EACH MISC MISCELLANE PRN (00:54)
[2022-02-13] MEDS ORDERED: VANCOMYCIN 1,750 MG in SODIUM CHLORIDE 0.9% 500 ML 500 ML IVPB ONE (01:00)
[2022-02-13] MEDS: NOREPINEPHRINE 4 MG in SODIUM CHLORIDE 0.9% 250 ML IV SCH ×4 (01:14→22:04)
[2022-02-13] MEDS: HEPARIN SODIUM,PORCINE/PF 5,000 UNIT/0.5 ML SYRINGE SQ SCH ×3 (01:20→20:36)
--- NOTE | 2022-02-13 01:23 | XR ---
EXAM: XR Chest, 1 View CLINICAL HISTORY: ITS.REASON XR Reason: intubation TECHNIQUE: Frontal view of the chest. COMPARISON: XR Chest dated 02/12/2022 at 1601 hrs FINDINGS: Lungs: Mild patchy opacities in the mid to lower lungs bilaterally may represent airspace disease/atelectasis. Pleural space: Small bilateral pleural effusions. No pneumothorax. Heart: Mild cardiomegaly. Mediastinum: Unremarkable. Bones/joints: Unremarkable. Tubes, lines and devices: New endotracheal tube with the tip 12 mm above the mima. New enteric tube within the stomach, tip off the edge of image. IMPRESSION: 1. New endotracheal tube with the tip 12 mm above the mima. 2. New enteric tube within the stomach, tip off the edge of image. 3. Mild cardiomegaly. 4. Mild patchy opacities in the mid to lower lungs bilaterally may represent airspace disease/atelectasis. 5. Small bilateral pleural effusions. 6. Overall findings may reflect edema or infectious/inflammatory process
--- NOTE | 2022-02-13 02:21 | P.HPIM ---
History of Present Illness H&P Date: 02/12/22 Chief Complaint: altered mental status 76 year old male with severe aortic valve stenosis , recent episode of acute diverticulitis with bleeding requiring surgical intervention patient is currently residing at a rehab [facility] , he was supposed to leave today to go home, he follow up with surgery about a week ago and was told that his wound and everything looked good ,and stiches were removed. patient underwent surgical colon resection about a month ago. patient unable to provide any meaningful history at this time due to changes in mental status , patient is lethargic and unresponsive. per ED report, patient was brought in for increase confusion , abd pain at incis ion site, with two areas of small wound dehiscence. no further episode of bleeding. it was also noted that he was getting worsening leg edema and increase shortness of breath. upon arrival to the ED, he was found to be hypoxic and hypercapnic , no history of COPD. patient was initiated on BIpap, follow up ABG did not show much improvement, case discussed with ICU for admission and close monitoring with potential for intubation and mechanical vent. patient also reported a fall on Thursday (4 days ago) CT of the brain in the ED showed no acute pathology no report of fever, of GI bleeding , no report of chest pain CXR showed mild pulmonary vascular congestion , Repeat CXR after intubation was more suggestive of patchy infiltrates possible pneumonia blood work showed chronic anemia 8.6, K 5.[address] showed small volume ascites and multifocal fecal impaction , patient did report 3 day history of constipation UA was bloody post victoria cath insertion patient was initiated on lasix in the ED for persumed CHF, most recent echo showing LVEF 55% Bipap for acute hypercapnic respiratory failure empiric antibiotics initiated , surgical wound did not show sings of infection elevated troponin , and pro bnp lactic acid normal renal function showing possible dehydration or insufficient perfusion , slightly elevated K and mild hyponatremia Review of Systems ROS unobtainable: due to mental status Past Medical History Past Medical History: Blood Disorder, Diabetes Mellitus, Hyperlipidemia, Hypertension Additional Past Medical History / Comment(s): Past rectal bleeds, polycythemia, NIDDM, recently had lower 5 teeth extracted, R lower leg edema, heart murmur, DDD with occasional back pain. History of Any Multi-Drug Resistant Organisms: None Reported Past Surgical History: Bowel Resection, Tonsillectomy Additional Past Surgical History / Comment(s): Colonoscopies, bilateral cataract removals/lens implants, R mastoid surgery at age 4 yrs. Past Anesthesia/Blood Transfusion Reactions: No Reported Reaction Past Psychological History: No Psychological Hx Reported Smoking Status: Former smoker Past Alcohol Use History: None Reported Past Drug Use History: None Reported - Past Family History Father History Unknown: Yes Family Medical History: No Reported History Additional Family Medical History / Comment(s): Father was healthy and lived into his 90s. Mother History Unknown: Yes Medications and Allergies Home Medications Medication Instructions Recorded Confirmed Type Aspirin EC [Ecotrin Low Dose] 81 mg PO HS 12/10/21 02/12/22 History Multivitamins, Thera [Multivitamin 1 tab PO HS 12/10/21 02/12/22 History (formulary)] [place]-3/Dha/Epa/Fish Oil [Fish Oil 1 cap PO HS 12/10/21 02/12/22 History 1,000 mg Softgel] Oxybutynin Chloride [Ditropan] 5 mg PO BID 12/10/21 02/12/22 History Pravastatin Sodium [Pravachol] 40 mg PO HS@199912/10/21 02/12/22 History Testosterone Cypionate 200 mg IM Q10D 12/10/21 02/12/22 History [Depo-Testosterone] metFORMIN HCL [Glucophage] 500 mg PO BID 12/10/21 02/12/22 History Pantoprazole [Protonix] 40 mg PO DAILY #30 tab 12/13/21 02/12/22 Rx Acetaminophen Tab [Tylenol Tab] 1,000 mg PO Q6H PRN 02/12/22 02/12/22 History Ferrocite 324mg 1 tab PO HS 02/12/22 02/12/22 History Furosemide [Lasix] 40 mg PO DAILY 02/12/22 02/12/22 History Healthshake 1 dose PO BID@0800,1600 02/12/22 02/12/22 History Melatonin 3 mg PO HS PRN 02/12/22 02/12/22 History Psyllium Husk 100% [Metamucil 1 tbsp PO DAILY 02/12/22 02/12/22 History Packet] Allergies Allergy/AdvReac Type Severity Reaction Status Date / Time No Known Allergies Allergy Verified 02/12/22 16:03 Physical Exam Vitals: Vital Signs Temp Pulse Pulse Resp BP BP Pulse Ox 02/12/22 22:05 99 22 100/59 94 L 02/12/22 21:52 99 22 101/63 95 02/12/22 21:36 99 20 104/60 95 02/12/22 21:23 02/12/22 20:57 102 H 25 H 100/63 95 02/12/22 19:37 02/12/22 19:30 101 H 101/65 96 02/12/22 19:20 102 H 32 H 90/60 93 L 02/12/22 19:17 104 H 36 H 89/57 90 L 02/12/22 18:44 98.1 F 103 H 16 98/58 99 02/12/22 17:25 98.2 F 101 H 16 94/62 98 02/12/22 16:19 97.6 F 103 H 20 112/70 98 02/12/22 14:35 96.6 F L 107 H 20 105/70 98 FiO2 02/12/22 22:05 50 02/12/22 21:52 50 02/12/22 21:36 50 02/12/22 21:23 50 02/12/22 20:57 50 02/12/22 19:37 65 02/12/22 19:30 02/12/22 19:20 80 02/12/22 19:17 02/12/22 18:44 02/12/22 17:25 02/12/22 16:19 02/12/22 14:35 Intake and Output 02/12/22 02/12/22 02/13/22 14:59 22:59 06:59 Other: Weight 108.862 kg 108.862 kg Constitutional: lethargic, very difficult to arouse, sometimes open eyes briefly to painful stimulation , on Bipap Eyes: Anicteric sclerae, moist conjunctiva, Pupils equal round reactive to light ENMT: NC/AT Neck: Supple, no masses, or JVD No carotid bruits No thyromegaly Lungs: Clear to auscultation Clear to percussion Normal respiratory effort, no accessory muscle use Cardiovascular: Heart regular in rate and rhythm, No murmurs, gallops, or rubs +3 bilateral peripheral leg edema Abdominal: Soft, slightly distended Grimices to deep palpation , no guarding, rebound or rigidity two small areas of wound dehiscence, no surrounding induration or erythema, yellowish base of the wound minimal drainage Abdomen moving with respiration sluggish bowel sounds No hepatomegaly, No splenomegaly No palpable mass No abdominal wall hernia noted Skin: Normal temperature, tone, texture, turgor No induration No subcutaneous nodules No rash, lesions No ulcers Extremities: No digital cyanosis No clubbing Pedal pulses intact and symmetrical Radial pulses intact and symmetrical No calf tenderness Psychiatric: lethargic , difficult to arouse, open eyes briefly to painful stimulation Neuro unable to perform neuro exam due to mental status Lymphatics: no palpable cervical or supraclavicular , or inguinal lymph nodes Results CBC & Chem 7: 02/12/22 15:58 02/12/22 15:58 Labs: Abnormal Lab Results - Last 24 Hours (Table) 02/12/22 02/12/22 02/12/22 Range/Units 15:58 15:58 15:58 RBC 3.70 L (4.30-5.90) m/uL Hgb 8.6 L (13.0-17.5) gm/dL Hct 31.1 L (39.0-53.0) % MCH 23.3 L (25.0-35.0) pg MCHC 27.8 L (31.0-37.0) g/dL RDW 18.2 H (11.5-15.5) % Plt Count 472 H (150-450) k/uL Lymphocytes # (Manual) 0.85 L (1.0-4.8) k/uL ABG pH (7.35-7.45) ABG pCO2 (35-45) mmHg ABG HCO3 (21-25) mmol/L ABG Total CO2 (19-24) mmol/L ABG O2 Saturation (94-97) % ABG Hematocrit (34.0-46.0) % VBG pH (7.31-7.41) VBG pCO2 (37-51) mmHg VBG HCO3 (24-28) mmol/L Hemoglobin (13.0-17.5) gm/dL Sodium 134 L (137-145) mmol/L Potassium 5.3 H (3.5-5.1) mmol/L Chloride 92 L (98-107) mmol/L BUN 48 H (9-20) mg/dL Glucose 138 H (74-99) mg/dL POC Glucose (mg/dL) (70-110) mg/dL Troponin I 0.053 H* (0.000-0.034) ng/mL Lipase 326 H (23-300) U/L Urine Protein (Negative) Urine Blood (Negative) Ur Leukocyte Esterase (Negative) Urine RBC (0-5) /hpf Hyaline Casts (0-2) /lpf Urine Mucus (None) /hpf 02/12/22 02/12/22 02/12/22 Range/Units 18:00 18:20 19:06 RBC (4.30-5.90) m/uL Hgb (13.0-17.5) gm/dL Hct (39.0-53.0) % MCH (25.0-35.0) pg MCHC (31.0-37.0) g/dL RDW (11.5-15.5) % Plt Count (150-450) k/uL Lymphocytes # (Manual) (1.0-4.8) k/uL ABG pH (7.35-7.45) ABG pCO2 (35-45) mmHg ABG HCO3 (21-25) mmol/L ABG Total CO2 (19-24) mmol/L ABG O2 Saturation (94-97) % ABG Hematocrit (34.0-46.0) % VBG pH 7.21 L (7.31-7.41) VBG pCO2 78 H* (37-51) mmHg VBG HCO3 31 H (24-28) mmol/L Hemoglobin (13.0-17.5) gm/dL Sodium (137-145) mmol/L Potassium (3.5-5.1) mmol/L Chloride (98-107) mmol/L BUN (9-20) mg/dL Glucose (74-99) mg/dL POC Glucose (mg/dL) 189 H (70-110) mg/dL Troponin I (0.000-0.034) ng/mL Lipase (23-300) U/L Urine Protein Trace H (Negative) Urine Blood Large H (Negative) Ur Leukocyte Esterase Trace H (Negative) Urine RBC 117 H (0-5) /hpf Hyaline Casts 10 H (0-2) /lpf Urine Mucus Rare H (None) /hpf 02/12/22 02/12/22 02/12/22 Range/Units 20:41 20:41 21:57 RBC (4.30-5.90) m/uL Hgb (13.0-17.5) gm/dL Hct (39.0-53.0) % MCH (25.0-35.0) pg MCHC (31.0-37.0) g/dL RDW (11.5-15.5) % Plt Count (150-450) k/uL Lymphocytes # (Manual) (1.0-4.8) k/uL ABG pH 7.23 L (7.35-7.45) ABG pCO2 72 H* (35-45) mmHg ABG HCO3 30 H (21-25) mmol/L ABG Total CO2 32 H (19-24) mmol/L ABG O2 Saturation 98.0 H (94-97) % ABG Hematocrit 27 L (34.0-46.0) % VBG pH 7.19 L* (7.31-7.41) VBG pCO2 81 H* (37-51) mmHg VBG HCO3 31 H (24-28) mmol/L Hemoglobin 8.8 L (13.0-17.5) gm/dL Sodium (137-145) mmol/L Potassium (3.5-5.1) mmol/L Chloride (98-107) mmol/L BUN (9-20) mg/dL Glucose (74-99) mg/dL POC Glucose (mg/dL) (70-110) mg/dL Troponin I 0.069 H* (0.000-0.034) ng/mL Lipase (23-300) U/L Urine Protein (Negative) Urine Blood (Negative) Ur Leukocyte Esterase (Negative) Urine RBC (0-5) /hpf Hyaline Casts (0-2) /lpf Urine Mucus (None) /hpf 02/12/22 Range/Units 22:40 RBC (4.30-5.90) m/uL Hgb (13.0-17.5) gm/dL Hct (39.0-53.0) % MCH (25.0-35.0) pg MCHC (31.0-37.0) g/dL RDW (11.5-15.5) % Plt Count (150-450) k/uL Lymphocytes # (Manual) (1.0-4.8) k/uL ABG pH (7.35-7.45) ABG pCO2 (35-45) mmHg ABG HCO3 (21-25) mmol/L ABG Total CO2 (19-24) mmol/L ABG O2 Saturation (94-97) % ABG Hematocrit (34.0-46.0) % VBG pH (7.31-7.41) VBG pCO2 (37-51) mmHg VBG HCO3 (24-28) mmol/L Hemoglobin (13.0-17.5) gm/dL Sodium (137-145) mmol/L Potassium (3.5-5.1) mmol/L Chloride (98-107) mmol/L BUN (9-20) mg/dL Glucose (74-99) mg/dL POC Glucose (mg/dL) 234 H (70-110) mg/dL Troponin I (0.000-0.034) ng/mL Lipase (23-300) U/L Urine Protein (Negative) Urine Blood (Negative) Ur Leukocyte Esterase (Negative) Urine RBC (0-5) /hpf Hyaline Casts (0-2) /lpf Urine Mucus (None) /hpf Microbiology - Last 24 Hours (Table) 02/12/22 19:25 Anaerobic Culture - Preliminary Abdomen 02/12/22 19:25 Wound Culture - Preliminary Abdomen Assessment and Plan Assessment: 76 year old male with DM , severe aortic stenosis , recent surgical repair of bleeding acute diverticulitis about a month ago. brought in today for altered mental status , found to have acute hypercapnic respiratory failure , possible pneumonia , bilateral lower extremity edema CVS blood pressure borderline with history of severe aortic valve stenosis slightly elevated troponin elevated proBNP possible diastolic CHF CXR very small pleural effusion with possible patchy infilterates / pneumonia patient given lasix in the ED , produced no urine output renal function shows possible dehydration or decrease effective arterial circulation border line blood pressure , hold antihypertensive meds Neuro acute metabolic encephalpathy recent fall 4 days ago , Brain CT no acute pathology Respiratory acute hypercapnic respiratory failure failed Bipap with worsening CO2 retention and acidosis patient intubated due to failure of Biapap with worsening acute hypercapnic respiratory failure with worsening mental status initiated on antibiotics in the ED with zosyn follow up cultures add vancomycin infectious suspected pneumonia follow up cultures COVID negative initiated on zosyn and vanco , to cover abd source and possible pneumonia metabolic /Renal mild hyperkalemia renal function suggestive of dehydration , vs ineffective arterial perfusion of the kidneys failed lasix challenge , not making urine victoria cath flushed will start IVF hydration with normal saline bolus of 1 L , then continue with maintenance at 125 cc per hour monitor for fluid over load. hematology no reported GI bleeding chronic stable anemia continue to monitor GI recent bowel resection for hemorrhagic acute diverticulitis constipation CT abd reviewed supportive care await Gen Surg eval DM insulin sliding scale Q6hr guarded prognosis ICU care full code DVT PPX heparin sc tid
[2022-02-13] MEDS: SODIUM CHLORIDE 0.9% 1,000 ML IV SCH ×2 (03:18→15:15)
[2022-02-13] MEDS: INSULIN ASPART (NovoLOG) 100 UNIT/ML VIAL SQ SCH ×4 (05:14→23:45)
[2022-02-13 05:15] LABS: Glucose,Whole Blood 130 mg/dL (70-110)
[2022-02-13 05:32] LABS: Allen Test Performed? Yes
[2022-02-13 06:08] LABS: ABG Base Excess 4.4 mmol/L; ABG HCO3 28 mmol/L (21-25); ABG Oxygen Saturation 98.6 % (94-97); ABG PCO2 39 mmHg (35-45); ABG PH 7.47 (7.35-7.45); ABG PO2 83 mmHg (83-108); ABG TCO2 29 mmol/L (19-24)
[2022-02-13 06:15] LABS: ABG Hematocrit 23 % (34.0-46.0)
[2022-02-13 06:25] LABS: Anisocytosis Slight; HCT 28.8 % (39.0-53.0); HGB 7.8 gm/dL (13.0-17.5); Hypochromasia Marked; MCH 22.8 pg (25.0-35.0); MCHC 27.2 g/dL (31.0-37.0); MCV 83.9 fL (80.0-100.0); Platelet Count 429 k/uL (150-450); Poikilocytosis Slight; RBC 3.43 m/uL (4.30-5.90); RDW 18.1 % (11.5-15.5)
[2022-02-13 06:44] LABS: Calcium 8.3 mg/dL (8.4-10.2); Potassium 5.4 mmol/L (3.5-5.1)
--- NOTE | 2022-02-13 07:21 | XR ---
EXAM: XR Chest, 1 View CLINICAL HISTORY: ITS.REASON XR Reason: Tube placement TECHNIQUE: Frontal view of the chest. COMPARISON: 02/13/2022 0050 hours FINDINGS: See Impression. IMPRESSION: 1. Endotracheal tube tip higher than the prior study, now 3 cm above the mima. 2. Stable enteric tube within the stomach. 3. Stable cardiomegaly. 4. Stable bilateral atelectasis/airspace disease and small pleural effusions.
[2022-02-13 08:26] LABS: Glucose,Whole Blood 104 mg/dL (70-110)
[2022-02-13] MEDS ORDERED: CISATRACURIUM 2 MG/ML 5 ML VIAL IV ONE (09:30)
[2022-02-13 09:59] LABS: Lymphocytes # (M) 1.08 k/uL (1.0-4.8); Monocytes # (M) 0.45 k/uL (0-1.0); Neutrophils # (M) 7.47 k/uL (1.3-7.7); Neutrophils % (M) 83 %; Nucleated Red Blood Cells 0 /100 WBC (0-0); Total Cells Counted 100
[2022-02-13] MEDS: CHLORHEXIDINE GLUCONATE 15 ML CUP MUCOUS MEM SCH ×2 (10:35→20:36)
[2022-02-13] MEDS: PIPERACILLIN-TAZOBACTAM 3.375 GM in SODIUM CHLORIDE 0.9% 100 ML IVPB SCH ×3 (10:35→23:45)
[2022-02-13] MEDS: ACETAMINOPHEN TAB 325 MG TAB PO PRN (10:36)
[2022-02-13] MEDS: PANTOPRAZOLE 40 MG/10 ML VIAL IVP SCH (10:36)
--- NOTE | 2022-02-13 10:47 | XR ---
EXAM: XR Chest, 1 View CLINICAL HISTORY: ITS.REASON XR Reason: central line placement TECHNIQUE: Frontal view of the chest. COMPARISON: 02/13/22 at 5:31 AM FINDINGS: Lungs: Stable airspace consolidation within the bilateral lower lobes. Pleural space: Stable lateral pleural effusions. No pneumothorax. Heart: Stable cardiomegaly. Mediastinum: Unremarkable. Bones/joints: Osseous structures stable. Tubes, lines and devices: Interval placement of right central venous catheter with tip terminating in the region of the right atrium. Endotracheal tube again seen with tip approximately 6.5 cm above the mima. Enteric feeding tube terminates below the inferior aspect of the film. IMPRESSION: Interval placement of right central venous catheter with tip terminating in the region of the right atrium. Endotracheal tube now approximately 6.5 cm above the mima, previously 3 cm. Otherwise grossly unchanged exam as compared to prior.
--- NOTE | 2022-02-13 10:58 | CA ---
Transthoracic Echo Report Name: Vince Varghese Age: 76 Gender: M : 1945 Exam Date: 02/13/2022 08:20 Exam Location: [facility] Ht (in): 66 Wt (lb): 240 Ordering Physician: Wicho Duque MD Attending/Referring Phys: Ski Maker Isabel Orourke RDCS Procedure CPT: Indications: Heart failure Cardiac Hx: Technical Quality: Fair Contrast 1: Total Dose (mL): Contrast 2: Total Dose (mL): MEASUREMENTS (Male / Female) Normal Values 2D ECHO LV Diastolic Diameter PLAX 5.0 cm 4.2 - 5.9 / 3.9 - 5.3 cm LV Systolic Diameter PLAX 3.8 cm IVS Diastolic Thickness 1.6 cm 0.6 - 1.0 / 0.6 - 0.9 cm LVPW Diastolic Thickness 1.4 cm 0.6 - 1.0 / 0.6 - 0.9 cm LV Relative Wall Thickness 0.6 RV Internal Dim ED PLAX 4.4 cm LVOT Diameter 2.3 cm LA Systolic Diameter LX 4.2 cm 3.0 - 4.0 / 2.7 - 3.8 cm LA Volume 89.1 cm??? 18 - 58 / 22 - 52 cm??? M-MODE Aortic Root Diameter MM 3.3 cm DOPPLER AV Peak Velocity 465.0 cm/s AV Peak Gradient 86.5 mmHg AV Mean Velocity 397.8 cm/s AV Mean Gradient 65.6 mmHg AV Velocity Time Integral 100.9 cm AI Peak Velocity 377.1 cm/s AI Peak Gradient 56.9 mmHg AI Pressure Half Time 232.1 ms MV Peak Velocity 224.7 cm/s MV Peak Gradient 20.2 mmHg MV Mean Velocity 121.2 cm/s MV Mean Gradient 7.4 mmHg MV Velocity Time Integral 54.8 cm MV Area PHT 2.9 cm??? Mitral E Point Velocity 213.6 cm/s Mitral A Point Velocity 188.2 cm/s Mitral E to A Ratio 1.1 MV Deceleration Time 264.6 ms MV E' Velocity 3.4 cm/s Mitral E to MV E' Ratio 63.1 TR Peak Velocity 293.7 cm/s TR Peak Gradient 34.5 mmHg Right Ventricular Systolic Press 37.7 mmHg FINDINGS Left Ventricle Left ventricular ejection fraction is estimated at 40-45 %. Moderately increased septal wall thickness. Left ventricular cavity size normal. Right Ventricle Severe right ventricular dilatation. Mild pulmonary hypertension. Right Atrium Normal right atrial size. Left Atrium Mildly increased left atrial diameter. Severely increased left atrial volume. Mildly increased left atrial area. No evidence for an atrial septal defect. Mitral Valve Moderate thickening/calcification of the anterior mitral valve leaflet. Moderate thickening/calcification of the posterior mitral valve leaflet. Moderate mitral annular calcification. [id number] mitral stenosis with peak gradient of 20 mmHg and mean gradient of 7 mmHg Aortic Valve Moderate to severe aortic valve sclerosis. Severe aortic stenosis with a peak velocity of 465 m/s, peak gradient 87 mmHg, mean gradient 66 mmHg Tricuspid Valve Mild tricuspid regurgitation. Pulmonic Valve Pulmonic valve not well visualized. Pericardium Normal pericardium. No pericardial effusion. Aorta Normal size aortic root and proximal ascending aorta. CONCLUSIONS Normal LV size with moderate concentric LVH ejection fraction of 45%. There is severe calcification of mitral annulus and leaflets. There is calcific mitral stenosis of a moderate degree. There is also severe aortic stenosis with a mean gradient of 60 mmHg. Mild pulmonary hypertension. Previewed by: Dr. Jf Coto MD (Electronically Signed) Final Date: 13 February 2022 10:57
[2022-02-13] MEDS: OXYBUTYNIN CHLORIDE 5 MG TAB PO SCH ×2 (11:04→20:36)
[2022-02-13 11:08] LABS: ABG Base Excess 3.9 mmol/L; ABG HCO3 27 mmol/L (21-25); ABG PCO2 36 mmHg (35-45); ABG PH 7.49 (7.35-7.45); ABG PO2 245 mmHg (83-108); ABG TCO2 28 mmol/L (19-24)
[2022-02-13 11:10] LABS: ABG Hematocrit 23 % (34.0-46.0); Allen Test Performed? no
[2022-02-13 11:44] LABS: Glucose,Whole Blood 130 mg/dL (70-110)
[2022-02-13] MEDS: FUROSEMIDE 10 MG/ML 4 ML VIAL IV SCH (11:52)
--- NOTE | 2022-02-13 12:19 | P.PN ---
Subjective Progress Note Date: 02/13/22 Patient was intubated last night after refractory hypercarbic respiratory failure. Patient's surgical wound seems to have wound dehiscence in 2 spots with pustular discharge and one area. Gen: Intubated, sedated HEENT: normocephalic, atraumatic, good hearing acuity, moist mucous membranes Resp: Ventilator dependent CVS: good distal perfusion x 4, GI: soft, wound dehiscence with 2 areas, lower area has pustular discharge : no SPT, no CVAT, victoria catheter is present MSK: no pitting edema, no clubbing Neuro: non-focal Assessment/plan: 76 year old male with DM , severe aortic stenosis , recent surgical repair of bleeding acute diverticulitis about a month ago. brought in today for altered mental status , found to have acute hypercapnic respiratory failure , possible pneumonia , bilateral lower extremity edema Acute Hypoxemic and Hypercarbic Respiratory Failure Septic Shock with Toxic/Metabolic Encephalopathy Community Acquired Pneumonia Surgical Site Infection s/p Bowel Resection Acute Kidney Injury - Admit to ICU, telemetry - ICU, ID consultation appreciated - Wound Care consult - Surgery consult - Vancomycin, Zosyn - f/u BCx, Wound Cx - IVF - Levophed - Propofol - Monitor I/Os, UOP - Daily labs Severe Aortic Stenosis Chronic Diastolic Heart Failure - strict I/Os, daily weights - cardiology consult - f/u Echo DM - Insulin sliding scale Q6hr guarded prognosis ICU care full code DVT PPX heparin sc tid Objective - Vital Signs Vital signs: Vital Signs Temp 99.9 F H 02/13/22 12:00 Pulse 89 02/13/22 12:00 Resp 20 02/13/22 12:00 BP 110/67 02/13/22 12:00 Pulse Ox 100 02/13/22 12:00 FiO2 50 02/13/22 12:00 Intake & Output 02/12/22 02/13/22 02/13/22 18:59 06:59 18:59 Intake Total 2987.374 1063.939 Output Total 485 530 Balance 2502.374 533.939 Weight 108.862 kg 108.862 kg Intake: IV 2900 562 Piperacillin-Tazobactam 3 100 100 .375 gm In Sodium Chloride 0.9% 100 ml @ 25 mls/hr IVPB Q8H [facility] Rx#: [id number] Sodium Chloride 0.9% 1, 300 450 000 ml @ 75 mls/hr IV . [id number] [facility] Rx#:[id number] Sodium Chloride 0.9% 1, 2000 000 ml @ 999 mls/hr IV . Q1H1M ONE Rx#:[id number] Vancomycin 1,750 mg In 500 Sodium Chloride 0.9% 500 ml 500 ml @ 167 mls/hr IVPB ONCE ONE Rx#: [id number] pressure bag 12 Intake, IV Titration 87.374 501.939 Amount Norepinephrine 4 mg In 14.655 418.660 Sodium Chloride 0.9% 250 ml @ 0.05 MCG/KG/MIN 20. 738 mls/hr IV .[id number] [facility] Rx#:[id number] propofoL 1,000 mg In 72.719 83.279 Empty Bag 1 bag @ 5 MCG/ KG/MIN 3.266 mls/hr IV . Q24H [facility] Rx#:[id number] Output: Urine 485 530 Other: Voiding Method Indwelling Catheter ABP, PAP, CO, CI - Last Documented Arterial Blood Pressure 112/63 - Labs CBC & Chem 7: 02/13/22 06:02 02/13/22 06:02 Labs: Abnormal Lab Results - Last 24 Hours (Table) 02/12/22 02/12/22 02/12/22 Range/Units 15:58 15:58 15:58 RBC 3.70 L (4.30-5.90) m/uL Hgb 8.6 L (13.0-17.5) gm/dL Hct 31.1 L (39.0-53.0) % MCH 23.3 L (25.0-35.0) pg MCHC 27.8 L (31.0-37.0) g/dL RDW 18.2 H (11.5-15.5) % Plt Count 472 H (150-450) k/uL Lymphocytes # (Manual) 0.85 L (1.0-4.8) k/uL ABG pH (7.35-7.45) ABG pCO2 (35-45) mmHg ABG pO2 (83-108) mmHg ABG HCO3 (21-25) mmol/L ABG Total CO2 (19-24) mmol/L ABG O2 Saturation (94-97) % ABG Hematocrit (34.0-46.0) % VBG pH (7.31-7.41) VBG pCO2 (37-51) mmHg VBG HCO3 (24-28) mmol/L Hemoglobin (13.0-17.5) gm/dL Sodium 134 L (137-145) mmol/L Potassium 5.3 H (3.5-5.1) mmol/L Chloride 92 L (98-107) mmol/L BUN 48 H (9-20) mg/dL Creatinine (0.66-1.25) mg/dL Glucose 138 H (74-99) mg/dL POC Glucose (mg/dL) (70-110) mg/dL Calcium (8.4-10.2) mg/dL Troponin I 0.053 H* (0.000-0.034) ng/mL Lipase 326 H (23-300) U/L Urine Protein (Negative) Urine Blood (Negative) Ur Leukocyte Esterase (Negative) Urine RBC (0-5) /hpf Hyaline Casts (0-2) /lpf Urine Mucus (None) /hpf 02/12/22 02/12/22 02/12/22 Range/Units 18:00 18:20 19:06 RBC (4.30-5.90) m/uL Hgb (13.0-17.5) gm/dL Hct (39.0-53.0) % MCH (25.0-35.0) pg MCHC (31.0-37.0) g/dL RDW (11.5-15.5) % Plt Count (150-450) k/uL Lymphocytes # (Manual) (1.0-4.8) k/uL ABG pH (7.35-7.45) ABG pCO2 (35-45) mmHg ABG pO2 (83-108) mmHg ABG HCO3 (21-25) mmol/L ABG Total CO2 (19-24) mmol/L ABG O2 Saturation (94-97) % ABG Hematocrit (34.0-46.0) % VBG pH 7.21 L (7.31-7.41) VBG pCO2 78 H* (37-51) mmHg VBG HCO3 31 H (24-28) mmol/L Hemoglobin (13.0-17.5) gm/dL Sodium (137-145) mmol/L Potassium (3.5-5.1) mmol/L Chloride (98-107) mmol/L BUN (9-20) mg/dL Creatinine (0.66-1.25) mg/dL Glucose (74-99) mg/dL POC Glucose (mg/dL) 189 H (70-110) mg/dL Calcium (8.4-10.2) mg/dL Troponin I (0.000-0.034) ng/mL Lipase (23-300) U/L Urine Protein Trace H (Negative) Urine Blood Large H (Negative) Ur Leukocyte Esterase Trace H (Negative) Urine RBC 117 H (0-5) /hpf Hyaline Casts 10 H (0-2) /lpf Urine Mucus Rare H (None) /hpf 02/12/22 02/12/22 02/12/22 Range/Units 20:41 20:41 21:57 RBC (4.30-5.90) m/uL Hgb (13.0-17.5) gm/dL Hct (39.0-53.0) % MCH (25.0-35.0) pg MCHC (31.0-37.0) g/dL RDW (11.5-15.5) % Plt Count (150-450) k/uL Lymphocytes # (Manual) (1.0-4.8) k/uL ABG pH 7.23 L (7.35-7.45) ABG pCO2 72 H* (35-45) mmHg ABG pO2 (83-108) mmHg ABG HCO3 30 H (21-25) mmol/L ABG Total CO2 32 H (19-24) mmol/L ABG O2 Saturation 98.0 H (94-97) % ABG Hematocrit 27 L (34.0-46.0) % VBG pH 7.19 L* (7.31-7.41) VBG pCO2 81 H* (37-51) mmHg VBG HCO3 31 H (24-28) mmol/L Hemoglobin 8.8 L (13.0-17.5) gm/dL Sodium (137-145) mmol/L Potassium (3.5-5.1) mmol/L Chloride (98-107) mmol/L BUN (9-20) mg/dL Creatinine (0.66-1.25) mg/dL Glucose (74-99) mg/dL POC Glucose (mg/dL) (70-110) mg/dL Calcium (8.4-10.2) mg/dL Troponin I 0.069 H* (0.000-0.034) ng/mL Lipase (23-300) U/L Urine Protein (Negative) Urine Blood (Negative) Ur Leukocyte Esterase (Negative) Urine RBC (0-5) /hpf Hyaline Casts (0-2) /lpf Urine Mucus (None) /hpf 02/12/22 02/12/22 02/12/22 Range/Units 22:40 23:04 23:51 RBC (4.30-5.90) m/uL Hgb (13.0-17.5) gm/dL Hct (39.0-53.0) % MCH (25.0-35.0) pg MCHC (31.0-37.0) g/dL RDW (11.5-15.5) % Plt Count (150-450) k/uL Lymphocytes # (Manual) (1.0-4.8) k/uL ABG pH 7.14 L* (7.35-7.45) ABG pCO2 92 H* (35-45) mmHg ABG pO2 127 H (83-108) mmHg ABG HCO3 31 H (21-25) mmol/L ABG Total CO2 34 H (19-24) mmol/L ABG O2 Saturation 98.8 H (94-97) % ABG Hematocrit 26 L (34.0-46.0) % VBG pH (7.31-7.41) VBG pCO2 (37-51) mmHg VBG HCO3 (24-28) mmol/L Hemoglobin 8.5 L (13.0-17.5) gm/dL Sodium (137-145) mmol/L Potassium (3.5-5.1) mmol/L Chloride (98-107) mmol/L BUN (9-20) mg/dL Creatinine (0.66-1.25) mg/dL Glucose (74-99) mg/dL POC Glucose (mg/dL) 234 H (70-110) mg/dL Calcium (8.4-10.2) mg/dL Troponin I 0.070 H* (0.000-0.034) ng/mL Lipase (23-300) U/L Urine Protein (Negative) Urine Blood (Negative) Ur Leukocyte Esterase (Negative) Urine RBC (0-5) /hpf Hyaline Casts (0-2) /lpf Urine Mucus (None) /hpf 02/13/22 02/13/22 02/13/22 Range/Units 05:12 06:02 06:02 RBC 3.43 L (4.30-5.90) m/uL Hgb 7.8 L (13.0-17.5) gm/dL Hct 28.8 L (39.0-53.0) % MCH 22.8 L (25.0-35.0) pg MCHC 27.2 L (31.0-37.0) g/dL RDW 18.1 H (11.5-15.5) % Plt Count (150-450) k/uL Lymphocytes # (Manual) (1.0-4.8) k/uL ABG pH (7.35-7.45) ABG pCO2 (35-45) mmHg ABG pO2 (83-108) mmHg ABG HCO3 (21-25) mmol/L ABG Total CO2 (19-24) mmol/L ABG O2 Saturation (94-97) % ABG Hematocrit (34.0-46.0) % VBG pH (7.31-7.41) VBG pCO2 (37-51) mmHg VBG HCO3 (24-28) mmol/L Hemoglobin (13.0-17.5) gm/dL Sodium 133 L (137-145) mmol/L Potassium 5.4 H (3.5-5.1) mmol/L Chloride (98-107) mmol/L BUN 49 H (9-20) mg/dL Creatinine 1.51 H (0.66-1.25) mg/dL Glucose 112 H (74-99) mg/dL POC Glucose (mg/dL) 130 H (70-110) mg/dL Calcium 8.3 L (8.4-10.2) mg/dL Troponin I (0.000-0.034) ng/mL Lipase (23-300) U/L Urine Protein (Negative) Urine Blood (Negative) Ur Leukocyte Esterase (Negative) Urine RBC (0-5) /hpf Hyaline Casts (0-2) /lpf Urine Mucus (None) /hpf 02/13/22 02/13/2222 Range/Units 06:07 11:06 11:41 RBC (4.30-5.90) m/uL Hgb (13.0-17.5) gm/dL Hct (39.0-53.0) % MCH (25.0-35.0) pg MCHC (31.0-37.0) g/dL RDW (11.5-15.5) % Plt Count (150-450) k/uL Lymphocytes # (Manual) (1.0-4.8) k/uL ABG pH 7.47 H 7.49 H (7.35-7.45) ABG pCO2 (35-45) mmHg ABG pO2 245 H (83-108) mmHg ABG HCO3 28 H 27 H (21-25) mmol/L ABG Total CO2 29 H 28 H (19-24) mmol/L ABG O2 Saturation 98.6 H 100.0 H (94-97) % ABG Hematocrit 23 L 23 L (34.0-46.0) % VBG pH (7.31-7.41) VBG pCO2 (37-51) mmHg VBG HCO3 (24-28) mmol/L Hemoglobin 7.5 L 7.5 L (13.0-17.5) gm/dL Sodium (137-145) mmol/L Potassium (3.5-5.1) mmol/L Chloride (98-107) mmol/L BUN (9-20) mg/dL Creatinine (0.66-1.25) mg/dL Glucose (74-99) mg/dL POC Glucose (mg/dL) 130 H (70-110) mg/dL Calcium (8.4-10.2) mg/dL Troponin I (0.000-0.034) ng/mL Lipase (23-300) U/L Urine Protein (Negative) Urine Blood (Negative) Ur Leukocyte Esterase (Negative) Urine RBC (0-5) /hpf Hyaline Casts (0-2) /lpf Urine Mucus (None) /hpf Microbiology - Last 24 Hours (Table) 02/12/22 19:25 Gram Stain - Preliminary Abdomen Wound Culture - Preliminary 02/12/22 19:25 Anaerobic Culture - Preliminary Abdomen
--- NOTE | 2022-02-13 12:19 | P.CRDCN ---
History of Present Illness Consult date: 02/13/22 History of present illness: Patient has a known history of hypertension, hyperlipidemia, aortic stenosis, chronic kidney disease, anemia congestive heart failure, diabetes and recent history of bowel resection for bleeding diverticulitis. Patient is not on anticoagulation due to history of GI bleed Patient follows in the office with Dr. Nash. Patient initially presented to the ER for mild confusion and worsening abdominal pain. Upon initial assessment patient was found to have worsening shortness of breath, lower extremity edema. We have been consulted to see the patient for congestive heart failure and elevated troponins. Patient is an echocardiogram which showed a mildly decreased LV function with an ejection fraction of 45%, there is severe calcification of mitral annulus and leaflets. There is calcific mitral stenosis of moderate degree, severe aortic stenosis with mean gradient of 60 mmHg pulmonary hypertension. he was examined resting comfortably in bed intubated and sedated. EKG shows sinus with PVCs and a right bundle-branch block and left fascicular. troponin elevation secondary to hypoxia. will start IV Lasix 40 mg daily Review of Systems REVIEW OF SYSTEMS At the time of my exam: CONSTITUTIONAL: Denies fever or chills. EYES: Negative for vision changes ENT: Negative for hearing loss CARDIOVASCULAR: Denies chest pain, shortness of breath, diaphoresis, orthopnea, PND or palpitations. VASCULAR: Denies edema RESPIRATORY: Denies cough. GASTROINTESTINAL: Denies abdominal pain, diarrhea, constipation, nausea or vomiting. MUSCULOSKELETAL: Denies myalgias. NEUROLOGIC: Denies numbness, tingling, headache or weakness. ENDOCRINE: Denies fatigue, weight change, polydipsia or polyurina. GENITOURINARY: Denies burning, hematuria or urgency with micturation. HEMATOLOGIC: Denies history of anemia or bleeding. DERMATOLOGY: Denies rash or skin sores PSYCH: Negative for depression or hallucinations. Past Medical History Past Medical History: Blood Disorder, Diabetes Mellitus, Hyperlipidemia, Hypertension Additional Past Medical History / Comment(s): Past rectal bleeds, polycythemia, NIDDM, recently had lower 5 teeth extracted, R lower leg edema, heart murmur, DDD with occasional back pain. History of Any Multi-Drug Resistant Organisms: None Reported Past Surgical History: Bowel Resection, Tonsillectomy Additional Past Surgical History / Comment(s): Colonoscopies, bilateral cataract removals/lens implants, R mastoid surgery at age 4 yrs. Past Anesthesia/Blood Transfusion Reactions: No Reported Reaction Past Psychological History: No Psychological Hx Reported Smoking Status: Former smoker Past Alcohol Use History: None Reported Past Drug Use History: None Reported - Past Family History Father History Unknown: Yes Family Medical History: No Reported History Additional Family Medical History / Comment(s): Father was healthy and lived into his 90s. Mother History Unknown: Yes Medications and Allergies Home Medications Medication Instructions Recorded Confirmed Type Aspirin EC [Ecotrin Low Dose] 81 mg PO HS 12/10/21 02/12/22 History Multivitamins, Thera [Multivitamin 1 tab PO HS 12/10/21 02/12/22 History (formulary)] [place]-3/Dha/Epa/Fish Oil [Fish Oil 1 cap PO HS 12/10/21 02/12/22 History 1,000 mg Softgel] Oxybutynin Chloride [Ditropan] 5 mg PO BID 12/10/21 02/12/22 History Pravastatin Sodium [Pravachol] 40 mg PO HS@199912/10/21 02/12/22 History Testosterone Cypionate 200 mg IM Q10D 12/10/21 02/12/22 History [Depo-Testosterone] metFORMIN HCL [Glucophage] 500 mg PO BID 12/10/21 02/12/22 History Pantoprazole [Protonix] 40 mg PO DAILY #30 tab 12/13/21 02/12/22 Rx Acetaminophen Tab [Tylenol Tab] 1,000 mg PO Q6H PRN 02/12/22 02/12/22 History Ferrocite 324mg 1 tab PO HS 02/12/22 02/12/22 History Furosemide [Lasix] 40 mg PO DAILY 02/12/22 02/12/22 History Healthshake 1 dose PO BID@0800,1600 02/12/22 02/12/22 History Melatonin 3 mg PO HS PRN 02/12/22 02/12/22 History Psyllium Husk 100% [Metamucil 1 tbsp PO DAILY 02/12/22 02/12/22 History Packet] Allergies Allergy/AdvReac Type Severity Reaction Status Date / Time No Known Allergies Allergy Verified 02/12/22 16:03 Physical Exam Vitals: Vital Signs Temp Pulse Pulse Resp BP BP Pulse Ox 02/13/22 10:49 02/13/22 10:21 02/13/22 07:32 02/13/22 07:00 88 20 93/58 02/13/22 06:00 90 28 H 81/57 02/13/22 05:00 89 20 88/59 02/13/22 04:05 02/13/22 04:00 99.4 F 88 80 20 84/60 96 02/13/22 03:00 98.4 F 86 20 85/61 98 02/13/22 02:49 02/13/22 02:00 79 20 88/62 02/13/22 01:40 78 20 78/47 02/13/22 01:20 75 20 67/55 02/13/22 01:00 76 20 62/44 02/13/22 00:57 02/13/22 00:50 02/13/22 00:40 91 23 72/49 02/13/22 00:35 02/13/22 00:20 100 40 H 89/65 02/13/22 00:00 96.3 F L 98 80 20 95/60 02/12/22 23:40 98 66 H 88/61 02/12/22 23:20 98 16 82/53 02/12/22 23:00 98 16 88/57 02/12/22 22:05 99 22 100/59 94 L 02/12/22 21:52 99 22 101/63 95 02/12/22 21:36 99 20 104/60 95 02/12/22 21:23 02/12/22 20:57 102 H 25 H 100/63 95 02/12/22 19:37 02/12/22 19:30 101 H 101/65 96 02/12/22 19:20 102 H 32 H 90/60 93 L 02/12/22 19:17 104 H 36 H 89/57 90 L 02/12/22 18:44 98.1 F 103 H 16 98/58 99 02/12/22 17:25 98.2 F 101 H 16 94/62 98 02/12/22 16:19 97.6 F 103 H 20 112/70 98 02/12/22 14:35 96.6 F L 107 H 20 105/70 98 FiO2 02/13/22 10:49 60 02/13/22 10:21 60 02/13/22 07:32 80 02/13/22 07:00 02/13/22 06:00 02/13/22 05:00 02/13/22 04:05 80 02/13/22 04:00 80 02/13/22 03:00 80 02/13/22 02:49 80 02/13/22 02:00 02/13/22 01:40 02/13/22 01:20 02/13/22 01:00 02/13/22 00:57 100 02/13/22 00:50 100 02/13/22 00:40 02/13/22 00:35 100 02/13/22 00:20 02/13/22 00:00 02/12/22 23:40 02/12/22 23:20 02/12/22 23:00 50 02/12/22 22:05 50 02/12/22 21:52 50 02/12/22 21:36 50 02/12/22 21:23 50 02/12/22 20:57 50 02/12/22 19:37 65 02/12/22 19:30 02/12/22 19:20 80 02/12/22 19:17 02/12/22 18:44 02/12/22 17:25 02/12/22 16:19 02/12/22 14:35 Intake and Output 02/12/22 02/13/22 02/13/22 22:59 06:59 14:59 Intake Total 2987.374 472.624 Output Total 485 225 Balance 2502.374 247.624 Intake: IV 2900 150 Piperacillin-Tazobactam 3 100 .375 gm In Sodium Chloride 0.9% 100 ml @ 25 mls/hr IVPB Q8H [facility] Rx#: [id number] Sodium Chloride 0.9% 1, 300 150 000 ml @ 75 mls/hr IV . [id number] [facility] Rx#:[id number] Sodium Chloride 0.9% 1, 2000 000 ml @ 999 mls/hr IV . Q1H1M ONE Rx#:[id number] Vancomycin 1,750 mg In 500 Sodium Chloride 0.9% 500 ml 500 ml @ 167 mls/hr IVPB ONCE ONE Rx#: [id number] Intake, IV Titration 87.374 322.624 Amount Norepinephrine 4 mg In 14.655 239.345 Sodium Chloride 0.9% 250 ml @ 0.05 MCG/KG/MIN 20. 738 mls/hr IV .[id number] [facility] Rx#:[id number] propofoL 1,000 mg In 72.719 83.279 Empty Bag 1 bag @ 5 MCG/ KG/MIN 3.266 mls/hr IV . Q24H [facility] Rx#:[id number] Output: Urine 485 225 Other: Voiding Method Indwelling Catheter Weight 108.862 kg PHYSICAL EXAMINATION VITAL SIGNS: Reviewed General: The patient is awake and alert, in no distress, and does not appear acutely ill. Skin: Skin is warm and dry and no rashes or lesions are noted. Eye: Pupils are equal, round and reactive to light, extra-ocular movements are intact; there is normal conjunctiva bilaterally. Ears, nose, mouth and throat: There are moist mucous membranes and no oral lesions. Neck: The neck is supple, there is no tenderness or JVD. Cardiovascular: There is irregular regular rate and rhythm. No murmur, rub or gallop is appreciated. Respiratory: Lungs are clear to auscultation, patient is intubated Gastrointestinal: Soft, non-distended, non-tender abdomen without masses or organomegaly noted. There is no rebound or guarding present. Bowel sounds are unremarkable. Back: There is no tenderness to palpation in the midline. There is no obvious deformity. Musculoskeletal: Normal ROM, no tenderness, There is no pedal edema. There is no calf tenderness or swelling. Extremities: Mild bilateral pitting edema Vascular: Femoral pulse is normal. Posterior tibial pulses are normal .Dorsalis pedis is palpable. Neurological: CN II-XII intact. There are no obvious motor or sensory deficits. Speech is normal. Psychiatric: Cooperative, appropriate mood & affect, normal judgment Results 02/13/22 06:02 02/13/22 06:02 Cardiac Enzymes 02/12/22 02/12/22 02/12/22 Range/Units 15:58 15:58 20:41 AST 21 (17-59) U/L Troponin I 0.053 H* 0.069 H* (0.000-0.034) ng/mL 02/12/22 Range/Units 23:04 AST (17-59) U/L Troponin I 0.070 H* (0.000-0.034) ng/mL Coagulation 02/12/22 Range/Units 15:58 PT 11.0 (9.0-12.0) sec APTT 23.3 (22.0-30.0) sec CBC 02/12/22 02/13/22 Range/Units 15:58 06:02 WBC 7.7 9.0 (3.8-10.6) k/uL RBC 3.70 L 3.43 L (4.30-5.90) m/uL Hgb 8.6 L 7.8 L (13.0-17.5) gm/dL Hct 31.1 L 28.8 L (39.0-53.0) % Plt Count 472 H 429 (150-450) k/uL Comprehensive Metabolic Panel 02/12/22 02/13/22 Range/Units 15:58 06:02 Sodium 134 L 133 L (137-145) mmol/L Potassium 5.3 H 5.4 H (3.5-5.1) mmol/L Chloride 92 L 98 (98-107) mmol/L Carbon Dioxide 29 22 (22-30) mmol/L BUN 48 H 49 H (9-20) mg/dL Creatinine 1.16 1.51 H (0.66-1.25) mg/dL Glucose 138 H 112 H (74-99) mg/dL Calcium 9.0 8.3 L (8.4-10.2) mg/dL AST 21 (17-59) U/L ALT 10 (4-49) U/L Alkaline Phosphatase 85 (38-126) U/L Total Protein 6.5 (6.3-8.2) g/dL Albumin 3.7 (3.5-5.0) g/dL Current Medications Generic Name Dose Route Start Last Admin Trade Name Freq PRN Reason Stop Dose Admin Acetaminophen 650 mg 02/13/22 09:01 02/13/22 10:36 Acetaminophen Tab 325 Mg Tab PO 650 mg Q6HR PRN Administration Fever and/ or Mild Pain Albuterol/Ipratropium 3 ml 02/13/22 12:00 Ipratropium-Albuterol 3 Ml Neb INHALATION RT-Q4H [facility] Aspirin 81 mg 02/12/22 21:00 02/12/22 22:53 Aspirin 81 Mg PO Not Given HS [facility] Chlorhexidine Gluconate 15 ml 02/13/22 09:00 02/13/22 10:35 Chlorhexidine Gluconate 15 Ml Cup MUCOUS MEM 15 ml BID [facility] Administration Heparin Sodium (Porcine) 5,000 unit 02/12/22 21:00 02/13/22 10:36 Heparin Sodium,Porcine/Pf 5,000 Unit/0.5 Ml Syringe SQ 5,000 unit Q12HR [facility] Administration Propofol 1,000 mg/ IV Solution 100 mls @ 3.266 mls/hr 02/13/22 01:00 02/13/22 09:22 IV 35 mcg/kg/min .Q24H [facility] 22.861 mls/hr Administration Protocol 5 MCG/KG/MIN Norepinephrine Bitartrate 4 mg 254 mls @ 20.738 mls/hr 02/13/22 01:00 02/13/22 07:33 / Sodium Chloride IV 0.1 mcg/kg/min .[id number] [facility] 41.476 mls/hr Administration Protocol 0.05 MCG/KG/MIN Sodium Chloride 1,000 mls @ 75 mls/hr 02/13/22 01:45 02/13/22 03:18 Saline 0.9% IV 75 mls/hr .[id number] [facility] Administration Piperacillin Sod/Tazobactam 100 mls @ 25 mls/hr 02/13/22 08:00 02/13/22 10:35 Sod 3.375 gm/ Sodium Chloride IVPB 25 mls/hr Q8HR [facility] Administration Protocol Vancomycin HCl 2,000 mg/ 500 mls @ 167 mls/hr 02/13/22 22:00 Sodium Chloride IVPB Q24H [facility] Insulin Aspart 0 unit 02/13/22 06:00 02/13/22 05:14 Insulin Aspart (Novolog) 100 Unit/Ml Vial SQ Not Given Q6HR [facility] Protocol Naloxone HCl 0.2 mg 02/12/22 19:38 Naloxone 0.4 Mg/Ml 1 Ml Vial IV Q2M PRN Opioid Reversal Ondansetron HCl 4 mg 02/12/22 19:38 Ondansetron 4 Mg/2 Ml Vial IVP Q8HR PRN Nausea And Vomiting Oxybutynin Chloride 5 mg 02/12/22 21:00 02/12/22 22:53 Oxybutynin Chloride 5 Mg Tab PO Not Given BID [facility] Pantoprazole Sodium 40 mg 02/13/22 09:00 02/13/22 10:36 Pantoprazole 40 Mg/10 Ml Vial IVP 40 mg DAILY [facility] Administration Intake and Output 02/12/22 02/13/22 02/13/22 22:59 06:59 14:59 Intake Total 2987.374 472.624 Output Total 485 225 Balance 2502.374 247.624 Intake: IV 2900 150 Piperacillin-Tazobactam 3 100 .375 gm In Sodium Chloride 0.9% 100 ml @ 25 mls/hr IVPB Q8H [facility] Rx#: [id number] Sodium Chloride 0.9% 1, 300 150 000 ml @ 75 mls/hr IV . [id number] [facility] Rx#:[id number] Sodium Chloride 0.9% 1, 2000 000 ml @ 999 mls/hr IV . Q1H1M [facility] Rx#:[id number] Vancomycin 1,750 mg In 500 Sodium Chloride 0.9% 500 ml 500 ml @ 167 mls/hr IVPB ONCE ONE Rx#: [id number] Intake, IV Titration 87.374 322.624 Amount Norepinephrine 4 mg In 14.655 239.345 Sodium Chloride 0.9% 250 ml @ 0.05 MCG/KG/MIN 20. 738 mls/hr IV .[id number] [facility] Rx#:[id number] propofoL 1,000 mg In 72.719 83.279 Empty Bag 1 bag @ 5 MCG/ KG/MIN 3.266 mls/hr IV . Q24H [facility] Rx#:[id number] Output: Urine 485 225 Other: Voiding Method Indwelling Catheter Weight 108.862 kg 02/13/22 06:02 02/13/22 06:02 Assessment and Plan Assessment: Acute on chronic diastolic congestive heart failure Elevated troponin secondary hypoxia Severe aortic stenosis Plan: Start IV Lasix 40 mg daily Continue with all othe current cardiac medications Further recommendations based on clinical course The above impression and plan of care have been discussed and directed by the signing physician. Janice Barrios, nurse practitioner, acting as scribe for signing physician.
--- NOTE | 2022-02-13 12:56 | US ---
EXAMINATION TYPE: US chest DATE OF EXAM: 02/13/2022 COMPARISON: CLINICAL HISTORY: Markings for thoracentesis by pulmonary staff. ICU intubated patient. Patient unab le to be upright for imaging. TECHNIQUE: Targeted ultrasound of the posterior lower bilateral hemithoraces EXAM MEASUREMENTS: Right Pleural Effusion pocket size: 9.2 cm Right skin surface to fluid distance: 3.8 cm Right side marked for possible thoracentesis outside the dept. Left side NOT marked for possible thoracentesis outside the dept. Pulmonologists are able to review the images in the patient?s EMR. IMPRESSIONS: Limited chest ultrasound. Bilateral pleural effusions right greater than left
--- NOTE | 2022-02-13 13:22 | P.CNPUL ---
History of Present Illness Consult date: 02/13/22 Requesting physician: Gaudencio Estes Reason for consult: other (Acute hypoxic and hypercapnic respiratory failure) Chief complaint: Altered mental status and abdominal pain at incision site History of present illness: This is a 76-year-old white male, history of colon resection about a month ago, patient had severe diverticulosis and recurrent lower GI bleeding from diverticulosis. Patient had a very complicated postoperative course, and he was eventually discharged to [facility]. Yesterday the patient was supposed to be cleared to go home however the patient developed worsening confusion, abdominal pain at the incision site, and small wound dehiscence from his previous surgical site in the abdomen. Patient was brought into the ER, and he was noted to be hypoxic and hypercapnic. Patient was initially placed on BiPAP, and I had a discussion with the ER physician after reviewing the ABG that the patient may have to be intubated however the ER physician felt that the patient was clinically better than his ABG and did not require intubation. However as soon as the patient was transferred to the ICU, he was clearly noted to be not tolerating the BiPAP, and his ABG was getting worse. Patient was intubated placed on mechanical ventilation and broad-spectrum antibiotics. No history could be obtained from the patient and there is no family members around, most of the information was obtained from the chart. Workup in the ER included a chest x-ray which showed patchy infiltrates, possible pneumonia, and some pulmonary vascular congestion. Patient was also noted to be anemic with a hemoglobin of 8.6, patient does have chronic anemia. CT of the abdomen and pelvis showed ascites and fecal impaction. Patient did receive Lasix in the ER, and his BNP level was a bit elevated. Pro-calcitonin level is pending. Patient is known to have history of severe aortic stenosis. ABG this morning showed a pO2 of 245 pCO2 of 36 pH of 7.49 and this was on 60% FiO2 and PEEP of 10. Hence his FiO2 will be decreased down to 45%. Otherwise we'll continue the same vent settings, mostly a rate of 2012 volume 500 FiO2 will be cut down, and PEEP will remain at 10 for now. ABG in the ER yesterday showed a pO2 of 127 pCO2 92 pH of 7.14 and this ABG was shortly before he was intubated. Clearly the patient had a picture of acute hypercapnic respiratory failure. Chest x-ray today after line placement showed adequate placement of the right subclavian triple-lumen catheter, his endot sagar tube was noted to be relatively high above the mima and this will be advanced. There is evidence of airspace consolidation within the lower lobes bilaterally. Small pleural effusions noted. Specially on the left side. But the ultrasound showed moderate right-sided pleural effusion and small left-sided pleural effusion. CT of the brain showed no evidence of acute process Review of Systems ROS unobtainable: due to endotracheal tube Past Medical History Past Medical History: Blood Disorder, Diabetes Mellitus, Hyperlipidemia, Hypertension Additional Past Medical History / Comment(s): Past rectal bleeds, polycythemia, NIDDM, recently had lower 5 teeth extracted, R lower leg edema, heart murmur, DDD with occasional back pain. History of Any Multi-Drug Resistant Organisms: None Reported Past Surgical History: Bowel Resection, Tonsillectomy Additional Past Surgical History / Comment(s): Colonoscopies, bilateral cataract removals/lens implants, R mastoid surgery at age 4 yrs. Past Anesthesia/Blood Transfusion Reactions: No Reported Reaction Past Psychological History: No Psychological Hx Reported Smoking Status: Former smoker Past Alcohol Use History: None Reported Past Drug Use History: None Reported - Past Family History Father History Unknown: Yes Family Medical History: No Reported History Additional Family Medical History / Comment(s): Father was healthy and lived into his 90s. Mother History Unknown: Yes Medications and Allergies Home Medications Medication Instructions Recorded Confirmed Type Aspirin EC [Ecotrin Low Dose] 81 mg PO HS 12/10/21 02/12/22 History Multivitamins, Thera [Multivitamin 1 tab PO HS 12/10/21 02/12/22 History (formulary)] Garwood-3/Dha/Epa/Fish Oil [Fish Oil 1 cap PO HS 12/10/21 02/12/22 History 1,000 mg Softgel] Oxybutynin Chloride [Ditropan] 5 mg PO BID 12/10/21 02/12/22 History Pravastatin Sodium [Pravachol] 40 mg PO HS@199912/10/21 02/12/22 History Testosterone Cypionate 200 mg IM Q10D 12/10/21 02/12/22 History [Depo-Testosterone] metFORMIN HCL [Glucophage] 500 mg PO BID 12/10/21 02/12/22 History Pantoprazole [Protonix] 40 mg PO DAILY #30 tab 12/13/21 02/12/22 Rx Acetaminophen Tab [Tylenol Tab] 1,000 mg PO Q6H PRN 02/12/22 02/12/22 History Ferrocite 324mg 1 tab PO HS 02/12/22 02/12/22 History Furosemide [Lasix] 40 mg PO DAILY 02/12/22 02/12/22 History Healthshake 1 dose PO BID@0800,1600 02/12/22 02/12/22 History Melatonin 3 mg PO HS PRN 02/12/22 02/12/22 History Psyllium Husk 100% [Metamucil 1 tbsp PO DAILY 02/12/22 02/12/22 History Packet] Allergies Allergy/AdvReac Type Severity Reaction Status Date / Time No Known Allergies Allergy Verified 02/12/22 16:03 Physical Exam Vitals: Vital Signs Temp Pulse Pulse Resp BP BP Pulse Ox 02/13/22 12:00 99.9 F H 89 20 110/67 100 02/13/22 11:58 85 02/13/22 11:48 02/13/22 11:46 87 02/13/22 11:00 89 20 108/65 100 02/13/22 10:49 02/13/22 10:21 02/13/22 10:00 17 84/73 99 02/13/22 09:00 16 101/62 100 02/13/22 08:00 99.8 F H 89 20 97/60 99 02/13/22 07:32 02/13/22 07:00 88 20 93/58 02/13/22 06:00 90 28 H 81/57 02/13/22 05:00 89 20 88/59 02/13/22 04:05 02/13/22 04:00 99.4 F 88 80 20 84/60 96 02/13/22 03:00 98.4 F 86 20 85/61 98 02/13/22 02:49 02/13/22 02:00 79 20 88/62 02/13/22 01:40 78 20 78/47 02/13/22 01:20 75 20 67/55 02/13/22 01:00 76 20 62/44 02/13/22 00:57 02/13/22 00:50 02/13/22 00:40 91 23 72/49 02/13/22 00:35 02/13/22 00:20 100 40 H 89/65 02/13/22 00:00 96.3 F L 98 80 20 95/60 02/12/22 23:40 98 66 H 88/61 02/12/22 23:20 98 16 82/53 02/12/22 23:00 98 16 88/57 02/12/22 22:05 99 22 100/59 94 L 02/12/22 21:52 99 22 101/63 95 02/12/22 21:36 99 20 104/60 95 02/12/22 21:23 02/12/22 20:57 102 H 25 H 100/63 95 02/12/22 19:37 02/12/22 19:30 101 H 101/65 96 02/12/22 19:20 102 H 32 H 90/60 93 L 02/12/22 19:17 104 H 36 H 89/57 90 L 02/12/22 18:44 98.1 F 103 H 16 98/58 99 02/12/22 17:25 98.2 F 101 H 16 94/62 98 02/12/22 16:19 97.6 F 103 H 20 112/70 98 02/12/22 14:35 96.6 F L 107 H 20 105/70 98 FiO2 02/13/22 12:00 50 02/13/22 11:58 02/13/22 11:48 50 02/13/22 11:46 02/13/22 11:00 02/13/22 10:49 60 02/13/22 10:21 60 02/13/22 10:00 02/13/22 09:00 60 02/13/22 08:00 80 02/13/22 07:32 80 02/13/22 07:00 02/13/22 06:00 02/13/22 05:00 02/13/22 04:05 80 02/13/22 04:00 80 02/13/22 03:00 80 02/13/22 02:49 80 02/13/22 02:00 02/13/22 01:40 02/13/22 01:20 02/13/22 01:00 02/13/22 00:57 100 02/13/22 00:50 100 02/13/22 00:40 02/13/22 00:35 100 02/13/22 00:20 02/13/22 00:00 02/12/22 23:40 02/12/22 23:20 02/12/22 23:00 50 02/12/22 22:05 50 02/12/22 21:52 50 02/12/22 21:36 50 02/12/22 21:23 50 02/12/22 20:57 50 02/12/22 19:37 65 02/12/22 19:30 02/12/22 19:20 80 02/12/22 19:17 02/12/22 18:44 02/12/22 17:25 02/12/22 16:19 02/12/22 14:35 Intake and Output 02/12/22 02/13/22 02/13/22 22:59 06:59 14:59 Intake Total 2987.374 1069.331 Output Total 485 530 Balance 2502.374 539.331 Intake: IV 2900 562 Piperacillin-Tazobactam 3 100 100 .375 gm In Sodium Chloride 0.9% 100 ml @ 25 mls/hr IVPB Q8H [facility] Rx#: [id number] Sodium Chloride 0.9% 1, 300 450 000 ml @ 75 mls/hr IV . [id number] [facility] Rx#:[id number] Sodium Chloride 0.9% 1, 2000 000 ml @ 999 mls/hr IV . Q1H1M [facility] Rx#:[id number] Vancomycin 1,750 mg In 500 Sodium Chloride 0.9% 500 ml 500 ml @ 167 mls/hr IVPB ONCE [facility] Rx#: [id number] pressure bag 12 Intake, IV Titration 87.374 507.331 Amount Norepinephrine 4 mg In 14.655 424.052 Sodium Chloride 0.9% 250 ml @ 0.05 MCG/KG/MIN 20. 738 mls/hr IV .[id number] [facility] Rx#:[id number] propofoL 1,000 mg In 72.719 83.279 Empty Bag 1 bag @ 5 MCG/ KG/MIN 3.266 mls/hr IV . Q24H [facility] Rx#:[id number] Output: Urine 485 530 Other: Voiding Method Indwelling Catheter Weight 108.862 kg ABP, PAP, CO, CI - Last 8 Hours Arterial Blood Pressure 112/63 Arterial Blood Pressure 111/69 Physical Exam: Revealed a 76-year-old white male in no distress. Intubated and mechanically ventilated. Presently on propofol. And he is requiring norepin ephrine at 0.13 mcg/kg/m. Head: Atraumatic, normocephalic. Endotracheal tube and orogastric tube are intact. HEENT:[Neck is supple.] [No neck masses.] [No thyromegaly.] [No JVD.] PERRLA, EOMI, nonicteric, chronic masses, no JVD. Chest: Symmetrical chest expansion, crackles at the bases and scattered rhonchi. Cardiac Exam: [Normal S1 and S2, no S3 gallop, 3/6 systolic murmur thought the precordium mostly over the aortic area. Abdomen: Obese,wound dehiscence with 2 areas, lower area has pustular discharge Extremities: [No clubbing, no edema, no cyanosis.] Neurological Exam: Cannot be assessed, patient is sedated and intubated. Psychiatric: Could not assess. Skin: Evidence of wound dehiscence and purulent drainage from abdominal incision. Results - Laboratory Findings CBC and BMP: 02/13/22 06:02 02/13/22 06:02 ABG ABG pH 7.49 (7.35-7.45) H 02/13/22 11:06 ABG pCO2 36 mmHg (35-45) 02/13/22 11:06 ABG pO2 245 mmHg (83-108) H 02/13/22 11:06 ABG O2 Saturation 100.0 % (94-97) H 02/13/22 11:06 PT/INR, D-dimer PT 11.0 sec (9.0-12.0) 02/12/22 15:58 INR 1.0 (<1.2) 02/12/22 15:58 Abnormal lab findings: Abnormal Labs 02/12/22 02/12/22 02/12/22 15:58 15:58 15:58 RBC 3.70 L Hgb 8.6 L Hct 31.1 L MCH 23.3 L MCHC 27.8 L RDW 18.2 H Plt Count 472 H Lymphocytes # (Manual) 0.85 L ABG pH ABG pCO2 ABG pO2 ABG HCO3 ABG Total CO2 ABG O2 Saturation ABG Hematocrit VBG pH VBG pCO2 VBG HCO3 Hemoglobin Sodium 134 L Potassium 5.3 H Chloride 92 L BUN 48 H Creatinine Glucose 138 H POC Glucose (mg/dL) Calcium Troponin I 0.053 H* Lipase 326 H Urine Protein Urine Blood Ur Leukocyte Esterase Urine RBC Hyaline Casts Urine Mucus 02/12/22 02/12/22 02/12/22 18:00 18:20 19:06 RBC Hgb Hct MCH MCHC RDW Plt Count Lymphocytes # (Manual) ABG pH ABG pCO2 ABG pO2 ABG HCO3 ABG Total CO2 ABG O2 Saturation ABG Hematocrit VBG pH 7.21 L VBG pCO2 78 H* VBG HCO3 31 H Hemoglobin Sodium Potassium Chloride BUN Creatinine Glucose POC Glucose (mg/dL) 189 H Calcium Troponin I Lipase Urine Protein Trace H Urine Blood Large H Ur Leukocyte Esterase Trace H Urine RBC 117 H Hyaline Casts 10 H Urine Mucus Rare H 02/12/22 02/12/22 02/12/22 20:41 20:41 21:57 RBC Hgb Hct MCH MCHC RDW Plt Count Lymphocytes # (Manual) ABG pH 7.23 L ABG pCO2 72 H* ABG pO2 ABG HCO3 30 H ABG Total CO2 32 H ABG O2 Saturation 98.0 H ABG Hematocrit 27 L VBG pH 7.19 L* VBG pCO2 81 H* VBG HCO3 31 H Hemoglobin 8.8 L Sodium Potassium Chloride BUN Creatinine Glucose POC Glucose (mg/dL) Calcium Troponin I 0.069 H* Lipase Urine Protein Urine Blood Ur Leukocyte Esterase Urine RBC Hyaline Casts Urine Mucus 02/12/22 02/12/22 02/12/22 22:40 23:04 23:51 RBC Hgb Hct MCH MCHC RDW Plt Count Lymphocytes # (Manual) ABG pH 7.14 L* ABG pCO2 92 H* ABG pO2 127 H ABG HCO3 31 H ABG Total CO2 34 H ABG O2 Saturation 98.8 H ABG Hematocrit 26 L VBG pH VBG pCO2 VBG HCO3 Hemoglobin 8.5 L Sodium Potassium Chloride BUN Creatinine Glucose POC Glucose (mg/dL) 234 H Calcium Troponin I 0.070 H* Lipase Urine Protein Urine Blood Ur Leukocyte Esterase Urine RBC Hyaline Casts Urine Mucus 02/13/22 02/13/22 02/13/22 05:12 06:02 06:02 RBC 3.43 L Hgb 7.8 L Hct 28.8 L MCH 22.8 L MCHC 27.2 L RDW 18.1 H Plt Count Lymphocytes # (Manual) ABG pH ABG pCO2 ABG pO2 ABG HCO3 ABG Total CO2 ABG O2 Saturation ABG Hematocrit VBG pH VBG pCO2 VBG HCO3 Hemoglobin Sodium 133 L Potassium 5.4 H Chloride BUN 49 H Creatinine 1.51 H Glucose 112 H POC Glucose (mg/dL) 130 H Calcium 8.3 L Troponin I Lipase Urine Protein Urine Blood Ur Leukocyte Esterase Urine RBC Hyaline Casts Urine Mucus 02/13/22 02/13/22 02/13/22 06:07 11:06 11:41 RBC Hgb Hct MCH MCHC RDW Plt Count Lymphocytes # (Manual) ABG pH 7.47 H 7.49 H ABG pCO2 ABG pO2 245 H ABG HCO3 28 H 27 H ABG Total CO2 29 H 28 H ABG O2 Saturation 98.6 H 100.0 H ABG Hematocrit 23 L 23 L VBG pH VBG pCO2 VBG HCO3 Hemoglobin 7.5 L 7.5 L Sodium Potassium Chloride BUN Creatinine Glucose POC Glucose (mg/dL) 130 H Calcium Troponin I Lipase Urine Protein Urine Blood Ur Leukocyte Esterase Urine RBC Hyaline Casts Urine Mucus - Diagnostic Findings Chest x-ray: image reviewed (As noted in HPI.) Assessment and Plan Assessment: Impression: Acute hypoxic and hypercapnic respiratory failure Sepsis and septic shock strongly suspected. Healthcare acquired pneumonia Surgical site/wound infection/abdomen with wound dehiscence. Acute kidney injury Severe aortic stenosis, documented on previous admissions. 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 Recommendation: Continue ventilatory support Broad-spectrum antibiotics with infectious disease consultation Consulted general surgery for wound dehiscence and surgical wound infection Continue pressors and hemodynamic support Continue vancomycin and Zosyn for now empirically Line placement including a triple-lumen catheter and arterial line for hemodyna loraine monitoring Culture blood, sputum, and open wound/abdominal wound, and adjust antibiotics accordingly GI and DVT prophylaxis. Hemodynamic support. Adjust ventilator settings according to ABG Patient is not ready for any weaning at this point. Prognosis is extremely guarded. We will continue to follow. Critical care time is over 55 minutes not including time for procedures Time with Patient: Greater than 30
[2022-02-13] MEDS: IPRATROPIUM-ALBUTEROL 3 ML NEB INHALATION SCH ×3 (13:47→21:10)
--- NOTE | 2022-02-13 15:39 | P.GSCN ---
History of Present Illness Consult date: 02/13/22 History of present illness: CHIEF COMPLAINT: Altered mental status HISTORY OF PRESENT ILLNESS: This is a 76-year-old male who is brought into the ER with altered mental status and evidence of acute hypoxic and hypercapnic respiratory failure. He was on BiPAP in the ER and did require to be intubated. He is on antibiotics for possible pneumonia. Patient had recent hospitalization with diverticular bleeding and required a lower anterior resection for the diverticular bleed on 01/15/[address] tran. Patient did have abdominal wound infection at incision site during the hospitalization. Patient was discharged with antibiotics. Surgical service is consulted regarding patient's abdominal wound and possible infection. Patient was recently seen in the office by Dr. tran. Patient has a clearish drainage in the lower part of the abdominal incision where it is dehisced. Patient did have low-grade fevers. He is intubated and sedated, and requiring a small amount of Levophed. Per patient's family reported no bowel movement for about 24 hours. Computed tomography scan had shown evidence of constipation but no abscess. White count was normal on admission. Patient seen and examined with Dr. tran PAST MEDICAL HISTORY: Aortic stenosis, diabetes mellitus, hyperlipidemia, hypertension PAST SURGICAL HISTORY: See list. MEDICATIONS: See list. ALLERGIES: See list. SOCIAL HISTORY: No illicit drug use. REVIEW OF SYSTEMS: CONSTITUTIONAL: Denies fever or chills. HEENT: Denies blurred vision, vision changes, or eye pain. Denies hemoptysis CARDIOVASCULAR: Denies chest pain or pressure. RESPIRATORY: No shortness of breath. GASTROINTESTINAL: See HPI for pertinent findings HEMATOLOGIC: Denies bleeding disorders. GENITOURINARY: Denies any blood in urine or increased urinary frequency. SKIN: Denies pruitis. Denies rash. PHYSICAL EXAM: VITAL SIGNS: Reviewed GENERAL: Intubated and sedated HEENT: No sclera icterus. Extraocular movements grossly intact. Moist buccal mucosa. Head is atraumatic, normocephalic. No nasal drainage. ABDOMEN: Soft. Obese. Nondistended. Mid abdominal incision with middle portion of incision with scabbed area no drainage. Distal portion of incision area of dehisced about 1 cm in size with clearish drainage. LABORATORY DATA: WBC is 9.0 Hgb 7.8 platelets 429 Sodium 133 potassium is 4.4 creatinine 1.51 Covid not detected IMAGING: Computed tomography scan abdomen and pelvis multifocal fecal retention. No visualized obstructing mass. Correlate for constipation. Intact sigmoid colo suad anastomosis. Small volume ascites, primarily collecting in the dependent left paracolic gutter. No loculated abscess. Moderate right and small left pleural effusion causing compressive atelectasis. Cardiomegaly. ASSESSMENT: 1. Abdominal wound with no evidence of abscess noted on computed tomography scan. Per Dr. Tran no evidence of abdominal wound infection 2. 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 History of surgical site infection during last hospitalization PLAN: -Continue ICU management -Continue supportive care -No surgical intervention planned -Continue to monitor Thank you for this consultation Physician Manager [employer] note has been reviewed by physician. Signing provider agrees with the documented findings, assessment, and plan of care. Past Medical History Past Medical History: Blood Disorder, Diabetes Mellitus, Hyperlipidemia, Hypertension Additional Past Medical History / Comment(s): Past rectal bleeds, polycythemia, NIDDM, recently had lower 5 teeth extracted, R lower leg edema, heart murmur, DDD with occasional back pain. History of Any Multi-Drug Resistant Organisms: None Reported Past Surgical History: Bowel Resection, Tonsillectomy Additional Past Surgical History / Comment(s): Colonoscopies, bilateral cataract removals/lens implants, R mastoid surgery at age 4 yrs. Past Anesthesia/Blood Transfusion Reactions: No Reported Reaction Past Psychological History: No Psychological Hx Reported Smoking Status: Former smoker Past Alcohol Use History: None Reported Past Drug Use History: None Reported - Past Family History Father History Unknown: Yes Family Medical History: No Reported History Additional Family Medical History / Comment(s): Father was healthy and lived into his 90s. Mother History Unknown: Yes Medications and Allergies Home Medications Medication Instructions Recorded Confirmed Type Aspirin EC [Ecotrin Low Dose] 81 mg PO HS 12/10/21 02/12/22 History Multivitamins, Thera [Multivitamin 1 tab PO HS 12/10/21 02/12/22 History (formulary)] Horse Branch-3/Dha/Epa/Fish Oil [Fish Oil 1 cap PO HS 12/10/21 02/12/22 History 1,000 mg Softgel] Oxybutynin Chloride [Ditropan] 5 mg PO BID 12/10/21 02/12/22 History Pravastatin Sodium [Pravachol] 40 mg PO HS@199912/10/21 02/12/22 History Testosterone Cypionate 200 mg IM Q10D 12/10/21 02/12/22 History [Depo-Testosterone] metFORMIN HCL [Glucophage] 500 mg PO BID 12/10/21 02/12/22 History Pantoprazole [Protonix] 40 mg PO DAILY #30 tab 12/13/21 02/12/22 Rx Acetaminophen Tab [Tylenol Tab] 1,000 mg PO Q6H PRN 02/12/22 02/12/22 History Ferrocite 324mg 1 tab PO HS 02/12/22 02/12/22 History Furosemide [Lasix] 40 mg PO DAILY 02/12/22 02/12/22 History Healthshake 1 dose PO BID@0800,1600 02/12/22 02/12/22 History Melatonin 3 mg PO HS PRN 02/12/22 02/12/22 History Psyllium Husk 100% [Metamucil 1 tbsp PO DAILY 02/12/22 02/12/22 History Packet] Allergies Allergy/AdvReac Type Severity Reaction Status Date / Time No Known Allergies Allergy Verified 02/12/22 16:03 Surgical - Exam Vital Signs Temp Pulse Resp BP Pulse Ox 96.6 F L 107 H 20 105/70 98 02/12/22 14:35 02/12/22 14:35 02/12/22 14:35 02/12/22 14:35 02/12/22 14:35 Results - Labs 02/13/22 06:02 02/13/22 06:02 Abnormal Lab Results - Last 24 Hours (Table) 02/12/22 02/12/22 02/12/22 Range/Units 15:58 15:58 15:58 RBC 3.70 L (4.30-5.90) m/uL Hgb 8.6 L (13.0-17.5) gm/dL Hct 31.1 L (39.0-53.0) % MCH 23.3 L (25.0-35.0) pg MCHC 27.8 L (31.0-37.0) g/dL RDW 18.2 H (11.5-15.5) % Plt Count 472 H (150-450) k/uL Lymphocytes # (Manual) 0.85 L (1.0-4.8) k/uL ABG pH (7.35-7.45) ABG pCO2 (35-45) mmHg ABG pO2 (83-108) mmHg ABG HCO3 (21-25) mmol/L ABG Total CO2 (19-24) mmol/L ABG O2 Saturation (94-97) % ABG Hematocrit (34.0-46.0) % VBG pH (7.31-7.41) VBG pCO2 (37-51) mmHg VBG HCO3 (24-28) mmol/L Hemoglobin (13.0-17.5) gm/dL Sodium 134 L (137-145) mmol/L Potassium 5.3 H (3.5-5.1) mmol/L Chloride 92 L (98-107) mmol/L BUN 48 H (9-20) mg/dL Creatinine (0.66-1.25) mg/dL Glucose 138 H (74-99) mg/dL POC Glucose (mg/dL) (70-110) mg/dL Calcium (8.4-10.2) mg/dL Troponin I 0.053 H* (0.000-0.034) ng/mL Lipase 326 H (23-300) U/L Urine Protein (Negative) Urine Blood (Negative) Ur Leukocyte Esterase (Negative) Urine RBC (0-5) /hpf Hyaline Casts (0-2) /lpf Urine Mucus (None) /hpf 02/12/22 02/12/22 02/12/22 Range/Units 18:00 18:20 19:06 RBC (4.30-5.90) m/uL Hgb (13.0-17.5) gm/dL Hct (39.0-53.0) % MCH (25.0-35.0) pg MCHC (31.0-37.0) g/dL RDW (11.5-15.5) % Plt Count (150-450) k/uL Lymphocytes # (Manual) (1.0-4.8) k/uL ABG pH (7.35-7.45) ABG pCO2 (35-45) mmHg ABG pO2 (83-108) mmHg ABG HCO3 (21-25) mmol/L ABG Total CO2 (19-24) mmol/L ABG O2 Saturation (94-97) % ABG Hematocrit (34.0-46.0) % VBG pH 7.21 L (7.31-7.41) VBG pCO2 78 H* (37-51) mmHg VBG HCO3 31 H (24-28) mmol/L Hemoglobin (13.0-17.5) gm/dL Sodium (137-145) mmol/L Potassium (3.5-5.1) mmol/L Chloride (98-107) mmol/L BUN (9-20) mg/dL Creatinine (0.66-1.25) mg/dL Glucose (74-99) mg/dL POC Glucose (mg/dL) 189 H (70-110) mg/dL Calcium (8.4-10.2) mg/dL Troponin I (0.000-0.034) ng/mL Lipase (23-300) U/L Urine Protein Trace H (Negative) Urine Blood Large H (Negative) Ur Leukocyte Esterase Trace H (Negative) Urine RBC 117 H (0-5) /hpf Hyaline Casts 10 H (0-2) /lpf Urine Mucus Rare H (None) /hpf 02/12/22 02/12/22 02/12/22 Range/Units 20:41 20:41 21:57 RBC (4.30-5.90) m/uL Hgb (13.0-17.5) gm/dL Hct (39.0-53.0) % MCH (25.0-35.0) pg MCHC (31.0-37.0) g/dL RDW (11.5-15.5) % Plt Count (150-450) k/uL Lymphocytes # (Manual) (1.0-4.8) k/uL ABG pH 7.23 L (7.35-7.45) ABG pCO2 72 H* (35-45) mmHg ABG pO2 (83-108) mmHg ABG HCO3 30 H (21-25) mmol/L ABG Total CO2 32 H (19-24) mmol/L ABG O2 Saturation 98.0 H (94-97) % ABG Hematocrit 27 L (34.0-46.0) % VBG pH 7.19 L* (7.31-7.41) VBG pCO2 81 H* (37-51) mmHg VBG HCO3 31 H (24-28) mmol/L Hemoglobin 8.8 L (13.0-17.5) gm/dL Sodium (137-145) mmol/L Potassium (3.5-5.1) mmol/L Chloride (98-107) mmol/L BUN (9-20) mg/dL Creatinine (0.66-1.25) mg/dL Glucose (74-99) mg/dL POC Glucose (mg/dL) (70-110) mg/dL Calcium (8.4-10.2) mg/dL Troponin I 0.069 H* (0.000-0.034) ng/mL Lipase (23-300) U/L Urine Protein (Negative) Urine Blood (Negative) Ur Leukocyte Esterase (Negative) Urine RBC (0-5) /hpf Hyaline Casts (0-2) /lpf Urine Mucus (None) /hpf 02/12/22 02/12/22 02/12/22 Range/Units 22:40 23:04 23:51 RBC (4.30-5.90) m/uL Hgb (13.0-17.5) gm/dL Hct (39.0-53.0) % MCH (25.0-35.0) pg MCHC (31.0-37.0) g/dL RDW (11.5-15.5) % Plt Count (150-450) k/uL Lymphocytes # (Manual) (1.0-4.8) k/uL ABG pH 7.14 L* (7.35-7.45) ABG pCO2 92 H* (35-45) mmHg ABG pO2 127 H (83-108) mmHg ABG HCO3 31 H (21-25) mmol/L ABG Total CO2 34 H (19-24) mmol/L ABG O2 Saturation 98.8 H (94-97) % ABG Hematocrit 26 L (34.0-46.0) % VBG pH (7.31-7.41) VBG pCO2 (37-51) mmHg VBG HCO3 (24-28) mmol/L Hemoglobin 8.5 L (13.0-17.5) gm/dL Sodium (137-145) mmol/L Potassium (3.5-5.1) mmol/L Chloride (98-107) mmol/L BUN (9-20) mg/dL Creatinine (0.66-1.25) mg/dL Glucose (74-99) mg/dL POC Glucose (mg/dL) 234 H (70-110) mg/dL Calcium (8.4-10.2) mg/dL Troponin I 0.070 H* (0.000-0.034) ng/mL Lipase (23-300) U/L Urine Protein (Negative) Urine Blood (Negative) Ur Leukocyte Esterase (Negative) Urine RBC (0-5) /hpf Hyaline Casts (0-2) /lpf Urine Mucus (None) /hpf 02/13/22 02/13/22 02/13/22 Range/Units 05:12 06:02 06:02 RBC 3.43 L (4.30-5.90) m/uL Hgb 7.8 L (13.0-17.5) gm/dL Hct 28.8 L (39.0-53.0) % MCH 22.8 L (25.0-35.0) pg MCHC 27.2 L (31.0-37.0) g/dL RDW 18.1 H (11.5-15.5) % Plt Count (150-450) k/uL Lymphocytes # (Manual) (1.0-4.8) k/uL ABG pH (7.35-7.45) ABG pCO2 (35-45) mmHg ABG pO2 (83-108) mmHg ABG HCO3 (21-25) mmol/L ABG Total CO2 (19-24) mmol/L ABG O2 Saturation (94-97) % ABG Hematocrit (34.0-46.0) % VBG pH (7.31-7.41) VBG pCO2 (37-51) mmHg VBG HCO3 (24-28) mmol/L Hemoglobin (13.0-17.5) gm/dL Sodium 133 L (137-145) mmol/L Potassium 5.4 H (3.5-5.1) mmol/L Chloride (98-107) mmol/L BUN 49 H (9-20) mg/dL Creatinine 1.51 H (0.66-1.25) mg/dL Glucose 112 H (74-99) mg/dL POC Glucose (mg/dL) 130 H (70-110) mg/dL Calcium 8.3 L (8.4-10.2) mg/dL Troponin I (0.000-0.034) ng/mL Lipase (23-300) U/L Urine Protein (Negative) Urine Blood (Negative) Ur Leukocyte Esterase (Negative) Urine RBC (0-5) /hpf Hyaline Casts (0-2) /lpf Urine Mucus (None) /hpf 02/13/22 02/13/22 02/13/22 Range/Units 06:07 11:06 11:41 RBC (4.30-5.90) m/uL Hgb (13.0-17.5) gm/dL Hct (39.0-53.0) % MCH (25.0-35.0) pg MCHC (31.0-37.0) g/dL RDW (11.5-15.5) % Plt Count (150-450) k/uL Lymphocytes # (Manual) (1.0-4.8) k/uL ABG pH 7.47 H 7.49 H (7.35-7.45) ABG pCO2 (35-45) mmHg ABG pO2 245 H (83-108) mmHg ABG HCO3 28 H 27 H (21-25) mmol/L ABG Total CO2 29 H 28 H (19-24) mmol/L ABG O2 Saturation 98.6 H 100.0 H (94-97) % ABG Hematocrit 23 L 23 L (34.0-46.0) % VBG pH (7.31-7.41) VBG pCO2 (37-51) mmHg VBG HCO3 (24-28) mmol/L Hemoglobin 7.5 L 7.5 L (13.0-17.5) gm/dL Sodium (137-145) mmol/L Potassium (3.5-5.1) mmol/L Chloride (98-107) mmol/L BUN (9-20) mg/dL Creatinine (0.66-1.25) mg/dL Glucose (74-99) mg/dL POC Glucose (mg/dL) 130 H (70-110) mg/dL Calcium (8.4-10.2) mg/dL Troponin I (0.000-0.034) ng/mL Lipase (23-300) U/L Urine Protein (Negative) Urine Blood (Negative) Ur Leukocyte Esterase (Negative) Urine RBC (0-5) /hpf Hyaline Casts (0-2) /lpf Urine Mucus (None) /hpf Microbiology - Last 24 Hours (Table) 02/12/22 19:25 Gram Stain - Preliminary Abdomen Wound Culture - Preliminary 02/12/22 19:25 Anaerobic Culture - Preliminary Abdomen Diabetes panel 02/12/22 02/13/22 Range/Units 15:58 06:02 Sodium 134 L 133 L (137-145) mmol/L Potassium 5.3 H 5.4 H (3.5-5.1) mmol/L Chloride 92 L 98 (98-107) mmol/L Carbon Dioxide 29 22 (22-30) mmol/L BUN 48 H 49 H (9-20) mg/dL Creatinine 1.16 1.51 H (0.66-1.25) mg/dL Glucose 138 H 112 H (74-99) mg/dL Calcium 9.0 8.3 L (8.4-10.2) mg/dL AST 21 (17-59) U/L ALT 10 (4-49) U/L Alkaline Phosphatase 85 (38-126) U/L Total Protein 6.5 (6.3-8.2) g/dL Albumin 3.7 (3.5-5.0) g/dL Calcium panel 02/12/22 02/13/22 Range/Units 15:58 06:02 Calcium 9.0 8.3 L (8.4-10.2) mg/dL Albumin 3.7 (3.5-5.0) g/dL Pituitary panel 02/12/22 02/13/22 Range/Units 15:58 06:02 Sodium 134 L 133 L (137-145) mmol/L Potassium 5.3 H 5.4 H (3.5-5.1) mmol/L Chloride 92 L 98 (98-107) mmol/L Carbon Dioxide 29 22 (22-30) mmol/L BUN 48 H 49 H (9-20) mg/dL Creatinine 1.16 1.51 H (0.66-1.25) mg/dL Glucose 138 H 112 H (74-99) mg/dL Calcium 9.0 8.3 L (8.4-10.2) mg/dL Adrenal panel 02/12/22 02/13/22 Range/Units 15:58 06:02 Sodium 134 L 133 L (137-145) mmol/L Potassium 5.3 H 5.4 H (3.5-5.1) mmol/L Chloride 92 L 98 (98-107) mmol/L Carbon Dioxide 29 22 (22-30) mmol/L BUN 48 H 49 H (9-20) mg/dL Creatinine 1.16 1.51 H (0.66-1.25) mg/dL Glucose 138 H 112 H (74-99) mg/dL Calcium 9.0 8.3 L (8.4-10.2) mg/dL Total Bilirubin 0.4 (0.2-1.3) mg/dL AST 21 (17-59) U/L ALT 10 (4-49) U/L Alkaline Phosphatase 85 (38-126) U/L Total Protein 6.5 (6.3-8.2) g/dL Albumin 3.7 (3.5-5.0) g/dL
[2022-02-13 18:14] LABS: Glucose,Whole Blood 143 mg/dL (70-110)
--- NOTE | 2022-02-13 20:35 | OP ---
OPERATIVE REPORT OPERATIVE REPORT: Placement of right subclavian triple-lumen catheter. PREOPERATIVE DIAGNOSIS: Acute hypoxic and hypercapnic respiratory failure. POSTOPERATIVE DIAGNOSIS: Acute hypoxic and hypercapnic respiratory failure. ANESTHESIA USED: 2 mL of 1% lidocaine. DESCRIPTION OF PROCEDURE: The patient was placed in a supine position, the area of the right subclavian region was prepared in a sterile fashion and drapes were applied. The area below the right clavicle was locally anesthetized with lidocaine. Then, using the infraclavicular approach, the right subclavian vein was easily cannulated, a guidewire was placed. The area around guidewire was dilated, then a triple-lumen catheter was inserted over the guidewire, and the guidewire was removed. Good blood flow was noted in the 3 different ports of the triple-lumen catheter. Line was secured using 3.0 silk sutures. A chest x-ray showed no complications and adequate placement of the triple-lumen catheter, no pneumothorax. MMODL / IJN: [id number] /
[2022-02-13] MEDS: ASPIRIN 81 MG PO SCH (20:36)
--- NOTE | 2022-02-13 20:42 | OP ---
OPERATIVE REPORT PROCEDURE PERFORMED: Placement of a left brachial arterial line. PREOPERATIVE DIAGNOSIS: Acute hypoxic and hypercapnic respiratory failure. POSTOPERATIVE DIAGNOSIS: Acute hypoxic and hypercapnic respiratory failure. ANESTHESIA USED: None deployed. DESCRIPTION OF PROCEDURE: The patient was placed in the supine position. The area of the left brachial region was prepared in a sterile fashion, and drapes were applied. The left brachial artery was palpated, cannulated, a guidewire was placed, and a Cook catheter was inserted over the guidewire, the guidewire was removed. The line was secured using 3-0 silk sutures, and there was adequate blood flow, and good waveform noted. No complications. MMODL / IJN: [id number] /
[2022-02-13] MEDS ORDERED: VANCOMYCIN 2,000 MG in SODIUM CHLORIDE 0.9% 500 ML 500 ML IVPB SCH (22:00)
--- NOTE | 2022-02-13 23:03 | P.CONS ---
History of Present Illness - Reason for Consult Consult date: 02/13/22 Wound infection, pneumonia Requesting physician: Gaudencio Estes - Chief Complaint Confusion and increasing shortness of breath x one day - History of Present Illness Patient is a 76-year-old male with a past medical history significant for diverticulitis and recurrent GI bleed from diverticulosis patient is status post laparotomy and partial colectomy that was completed on 01/15/2022 patient apparently did have a dehiscence of his abdominal incision that was treated by the surgical team and the patient was subsequently discharged to the rehab unit for rehabilitation patient has been brought back to the hospital yesterday afternoon for evaluation of mild confusion and worsening abdominal pain pain has been mostly around incision site and apparently was some clear yellowish drainage patient was complaining of increasing shortness of breath and did have significant swelling to the lower extremity patient on presentation to the hospital was afebrile subsequently did have a low-grade fever of 99.8 F this morning patient went into respiratory distress and requiring intubation and admission to the ICU patient on presentation to the hospital did have a normal white count BUN and creatinine has been mildly elevated urine was negative COVID testing was negative patient did have a CT of abdominal pelvis multifocal fecal retention , intact sigmoid colonic anastomosis small volume ascites no loculated abscess cardiomegaly some compressive atelectasis patient did have a cultures obtained from the abdominal wound patient was started on vancomycin and Zosyn infectious disease was consulted for further management of antibiotic therapy Review of Systems Positive points has been mentioned in HPI complete review could not be obtained because patient on the ventilator Past Medical History Past Medical History: Blood Disorder, Diabetes Mellitus, Hyperlipidemia, Hypertension Additional Past Medical History / Comment(s): Past rectal bleeds, polycythemia, NIDDM, recently had lower 5 teeth extracted, R lower leg edema, heart murmur, DDD with occasional back pain. History of Any Multi-Drug Resistant Organisms: None Reported Past Surgical History: Bowel Resection, Tonsillectomy Additional Past Surgical History / Comment(s): Colonoscopies, bilateral cataract removals/lens implants, R mastoid surgery at age 4 yrs. Past Anesthesia/Blood Transfusion Reactions: No Reported Reaction Past Psychological History: No Psychological Hx Reported Smoking Status: Former smoker Past Alcohol Use History: None Reported Past Drug Use History: None Reported - Past Family History Father History Unknown: Yes Family Medical History: No Reported History Additional Family Medical History / Comment(s): Father was healthy and lived into his 90s. Mother History Unknown: Yes Medications and Allergies Home Medications Medication Instructions Recorded Confirmed Type Aspirin EC [Ecotrin Low Dose] 81 mg PO HS 12/10/21 02/12/22 History Multivitamins, Thera [Multivitamin 1 tab PO HS 12/10/21 02/12/22 History (formulary)] [place]-3/Dha/Epa/Fish Oil [Fish Oil 1 cap PO HS 12/10/21 02/12/22 History 1,000 mg Softgel] Oxybutynin Chloride [Ditropan] 5 mg PO BID 12/10/21 02/12/22 History Pravastatin Sodium [Pravachol] 40 mg PO HS@199912/10/21 02/12/22 History Testosterone Cypionate 200 mg IM Q10D 12/10/21 02/12/22 History [Depo-Testosterone] metFORMIN HCL [Glucophage] 500 mg PO BID 12/10/21 02/12/22 History Pantoprazole [Protonix] 40 mg PO DAILY #30 tab 12/13/21 02/12/22 Rx Acetaminophen Tab [Tylenol Tab] 1,000 mg PO Q6H PRN 02/12/22 02/12/22 History Ferrocite 324mg 1 tab PO HS 02/12/22 02/12/22 History Furosemide [Lasix] 40 mg PO DAILY 02/12/22 02/12/22 History Healthshake 1 dose PO BID@0800,1600 02/12/22 02/12/22 History Melatonin 3 mg PO HS PRN 02/12/22 02/12/22 History Psyllium Husk 100% [Metamucil 1 tbsp PO DAILY 02/12/22 02/12/22 History Packet] Allergies Allergy/AdvReac Type Severity Reaction Status Date / Time No Known Allergies Allergy Verified 02/12/22 16:03 Physical Exam Vitals: Vital Signs Temp Pulse Pulse Resp BP BP Pulse Ox 02/13/22 10:21 02/13/22 07:32 02/13/22 07:00 88 20 93/58 02/13/22 06:00 90 28 H 81/57 02/13/22 05:00 89 20 88/59 02/13/22 04:05 02/13/22 04:00 99.4 F 88 80 20 84/60 96 02/13/22 03:00 98.4 F 86 20 85/61 98 02/13/22 02:49 02/13/22 02:00 79 20 88/62 02/13/22 01:40 78 20 78/47 02/13/22 01:20 75 20 67/55 02/13/22 01:00 76 20 62/44 02/13/22 00:57 02/13/22 00:50 02/13/22 00:40 91 23 72/49 02/13/22 00:35 02/13/22 00:20 100 40 H 89/65 02/13/22 00:00 96.3 F L 98 80 20 95/60 02/12/22 23:40 98 66 H 88/61 02/12/22 23:20 98 16 82/53 02/12/22 23:00 98 16 88/57 02/12/22 22:05 99 22 100/59 94 L 02/12/22 21:52 99 22 101/63 95 02/12/22 21:36 99 20 104/60 95 02/12/22 21:23 02/12/22 20:57 102 H 25 H 100/63 95 02/12/22 19:37 02/12/22 19:30 101 H 101/65 96 02/12/22 19:20 102 H 32 H 90/60 93 L 02/12/22 19:17 104 H 36 H 89/57 90 L 02/12/22 18:44 98.1 F 103 H 16 98/58 99 02/12/22 17:25 98.2 F 101 H 16 94/62 98 02/12/22 16:19 97.6 F 103 H 20 112/70 98 02/12/22 14:35 96.6 F L 107 H 20 105/70 98 FiO2 02/13/22 10:21 60 02/13/22 07:32 80 02/13/22 07:00 02/13/22 06:00 02/13/22 05:00 02/13/22 04:05 80 02/13/22 04:00 80 02/13/22 03:00 80 02/13/22 02:49 80 02/13/22 02:00 02/13/22 01:40 02/13/22 01:20 02/13/22 01:00 02/13/22 00:57 100 02/13/22 00:50 100 02/13/22 00:40 02/13/22 00:35 100 02/13/22 00:20 02/13/22 00:00 02/12/22 23:40 02/12/22 23:20 02/12/22 23:00 50 02/12/22 22:05 50 02/12/22 21:52 50 02/12/22 21:36 50 02/12/22 21:23 50 02/12/22 20:57 50 02/12/22 19:37 65 02/12/22 19:30 02/12/22 19:20 80 02/12/22 19:17 02/12/22 18:44 02/12/22 17:25 02/12/22 16:19 02/12/22 14:35 Intake and Output 02/12/22 02/13/22 02/13/22 22:59 06:59 14:59 Intake Total 2987.374 472.624 Output Total 485 225 Balance 2502.374 247.624 Intake: IV 2900 150 Piperacillin-Tazobactam 3 100 .375 gm In Sodium Chloride 0.9% 100 ml @ 25 mls/hr IVPB Q8H [facility] Rx#: [id number] Sodium Chloride 0.9% 1, 300 150 000 ml @ 75 mls/hr IV . [id number] [facility] Rx#:[id number] Sodium Chloride 0.9% 1, 2000 000 ml @ 999 mls/hr IV . Q1H1M [facility] Rx#:[id number] Vancomycin 1,750 mg In 500 Sodium Chloride 0.9% 500 ml 500 ml @ 167 mls/hr IVPB ONCE [facility] Rx#: [id number] Intake, IV Titration 87.374 322.624 Amount Norepinephrine 4 mg In 14.655 239.345 Sodium Chloride 0.9% 250 ml @ 0.05 MCG/KG/MIN 20. 738 mls/hr IV .[id number] [facility] Rx#:[id number] propofoL 1,000 mg In 72.719 83.279 Empty Bag 1 bag @ 5 MCG/ KG/MIN 3.266 mls/hr IV . Q24H [facility] Rx#:[id number] Output: Urine 485 225 Other: Voiding Method Indwelling Catheter Weight 108.862 kg GENERAL DESCRIPTION: Elderly male intubated on the vent HEENT: Shows Pallor , no scleral icterus. Oral mucous membrane is dry. No pharyngeal erythema or thrush NECK: Trachea central, no thyromegaly. LUNGS: Unlabored breathing. Decreased breath sound the bases HEART: S1, S2, regular rate and rhythm. No loud murmur ABDOMEN: Soft, lower abdominal open incision wound with minimal slough tissue no surrounding swelling redness or any drainage EXTREMITIES: No edema of feet. SKIN: No rash, no masses palpable. NEUROLOGICAL: The patient is sedated on the vent Results CBC & Chem 7: 02/14/22 04:08 02/14/22 04:08 Labs: Abnormal Lab Results - Last 24 Hours (Table) 02/12/22 02/12/22 02/12/22 Range/Units 15:58 15:58 15:58 RBC 3.70 L (4.30-5.90) m/uL Hgb 8.6 L (13.0-17.5) gm/dL Hct 31.1 L (39.0-53.0) % MCH 23.3 L (25.0-35.0) pg MCHC 27.8 L (31.0-37.0) g/dL RDW 18.2 H (11.5-15.5) % Plt Count 472 H (150-450) k/uL Lymphocytes # (Manual) 0.85 L (1.0-4.8) k/uL ABG pH (7.35-7.45) ABG pCO2 (35-45) mmHg ABG pO2 (83-108) mmHg ABG HCO3 (21-25) mmol/L ABG Total CO2 (19-24) mmol/L ABG O2 Saturation (94-97) % ABG Hematocrit (34.0-46.0) % VBG pH (7.31-7.41) VBG pCO2 (37-51) mmHg VBG HCO3 (24-28) mmol/L Hemoglobin (13.0-17.5) gm/dL Sodium 134 L (137-145) mmol/L Potassium 5.3 H (3.5-5.1) mmol/L Chloride 92 L (98-107) mmol/L BUN 48 H (9-20) mg/dL Creatinine (0.66-1.25) mg/dL Glucose 138 H (74-99) mg/dL POC Glucose (mg/dL) (70-110) mg/dL Calcium (8.4-10.2) mg/dL Troponin I 0.053 H* (0.000-0.034) ng/mL Lipase 326 H (23-300) U/L Urine Protein (Negative) Urine Blood (Negative) Ur Leukocyte Esterase (Negative) Urine RBC (0-5) /hpf Hyaline Casts (0-2) /lpf Urine Mucus (None) /hpf 02/12/22 02/12/22 02/12/22 Range/Units 18:00 18:20 19:06 RBC (4.30-5.90) m/uL Hgb (13.0-17.5) gm/dL Hct (39.0-53.0) % MCH (25.0-35.0) pg MCHC (31.0-37.0) g/dL RDW (11.5-15.5) % Plt Count (150-450) k/uL Lymphocytes # (Manual) (1.0-4.8) k/uL ABG pH (7.35-7.45) ABG pCO2 (35-45) mmHg ABG pO2 (83-108) mmHg ABG HCO3 (21-25) mmol/L ABG Total CO2 (19-24) mmol/L ABG O2 Saturation (94-97) % ABG Hematocrit (34.0-46.0) % VBG pH 7.21 L (7.31-7.41) VBG pCO2 78 H* (37-51) mmHg VBG HCO3 31 H (24-28) mmol/L Hemoglobin (13.0-17.5) gm/dL Sodium (137-145) mmol/L Potassium (3.5-5.1) mmol/L Chloride (98-107) mmol/L BUN (9-20) mg/dL Creatinine (0.66-1.25) mg/dL Glucose (74-99) mg/dL POC Glucose (mg/dL) 189 H (70-110) mg/dL Calcium (8.4-10.2) mg/dL Troponin I (0.000-0.034) ng/mL Lipase (23-300) U/L Urine Protein Trace H (Negative) Urine Blood Large H (Negative) Ur Leukocyte Esterase Trace H (Negative) Urine RBC 117 H (0-5) /hpf Hyaline Casts 10 H (0-2) /lpf Urine Mucus Rare H (None) /hpf 02/12/22 02/12/22 02/12/22 Range/Units 20:41 20:41 21:57 RBC (4.30-5.90) m/uL Hgb (13.0-17.5) gm/dL Hct (39.0-53.0) % MCH (25.0-35.0) pg MCHC (31.0-37.0) g/dL RDW (11.5-15.5) % Plt Count (150-450) k/uL Lymphocytes # (Manual) (1.0-4.8) k/uL ABG pH 7.23 L (7.35-7.45) ABG pCO2 72 H* (35-45) mmHg ABG pO2 (83-108) mmHg ABG HCO3 30 H (21-25) mmol/L ABG Total CO2 32 H (19-24) mmol/L ABG O2 Saturation 98.0 H (94-97) % ABG Hematocrit 27 L (34.0-46.0) % VBG pH 7.19 L* (7.31-7.41) VBG pCO2 81 H* (37-51) mmHg VBG HCO3 31 H (24-28) mmol/L Hemoglobin 8.8 L (13.0-17.5) gm/dL Sodium (137-145) mmol/L Potassium (3.5-5.1) mmol/L Chloride (98-107) mmol/L BUN (9-20) mg/dL Creatinine (0.66-1.25) mg/dL Glucose (74-99) mg/dL POC Glucose (mg/dL) (70-110) mg/dL Calcium (8.4-10.2) mg/dL Troponin I 0.069 H* (0.000-0.034) ng/mL Lipase (23-300) U/L Urine Protein (Negative) Urine Blood (Negative) Ur Leukocyte Esterase (Negative) Urine RBC (0-5) /hpf Hyaline Casts (0-2) /lpf Urine Mucus (None) /hpf 0902/12/22 02/12/22 Range/Units 22:40 23:04 23:51 RBC (4.30-5.90) m/uL Hgb (13.0-17.5) gm/dL Hct (39.0-53.0) % MCH (25.0-35.0) pg MCHC (31.0-37.0) g/dL RDW (11.5-15.5) % Plt Count (150-450) k/uL Lymphocytes # (Manual) (1.0-4.8) k/uL ABG pH 7.14 L* (7.35-7.45) ABG pCO2 92 H* (35-45) mmHg ABG pO2 127 H (83-108) mmHg ABG HCO3 31 H (21-25) mmol/L ABG Total CO2 34 H (19-24) mmol/L ABG O2 Saturation 98.8 H (94-97) % ABG Hematocrit 26 L (34.0-46.0) % VBG pH (7.31-7.41) VBG pCO2 (37-51) mmHg VBG HCO3 (24-28) mmol/L Hemoglobin 8.5 L (13.0-17.5) gm/dL Sodium (137-145) mmol/L Potassium (3.5-5.1) mmol/L Chloride (98-107) mmol/L BUN (9-20) mg/dL Creatinine (0.66-1.25) mg/dL Glucose (74-99) mg/dL POC Glucose (mg/dL) 234 H (70-110) mg/dL Calcium (8.4-10.2) mg/dL Troponin I 0.070 H* (0.000-0.034) ng/mL Lipase (23-300) U/L Urine Protein (Negative) Urine Blood (Negative) Ur Leukocyte Esterase (Negative) Urine RBC (0-5) /hpf Hyaline Casts (0-2) /lpf Urine Mucus (None) /hpf 02/13/22 02/13/22 02/13/22 Range/Units 05:12 06:02 06:02 RBC 3.43 L (4.30-5.90) m/uL Hgb 7.8 L (13.0-17.5) gm/dL Hct 28.8 L (39.0-53.0) % MCH 22.8 L (25.0-35.0) pg MCHC 27.2 L (31.0-37.0) g/dL RDW 18.1 H (11.5-15.5) % Plt Count (150-450) k/uL Lymphocytes # (Manual) (1.0-4.8) k/uL ABG pH (7.35-7.45) ABG pCO2 (35-45) mmHg ABG pO2 (83-108) mmHg ABG HCO3 (21-25) mmol/L ABG Total CO2 (19-24) mmol/L ABG O2 Saturation (94-97) % ABG Hematocrit (34.0-46.0) % VBG pH (7.31-7.41) VBG pCO2 (37-51) mmHg VBG HCO3 (24-28) mmol/L Hemoglobin (13.0-17.5) gm/dL Sodium 133 L (137-145) mmol/L Potassium 5.4 H (3.5-5.1) mmol/L Chloride (98-107) mmol/L BUN 49 H (9-20) mg/dL Creatinine 1.51 H (0.66-1.25) mg/dL Glucose 112 H (74-99) mg/dL POC Glucose (mg/dL) 130 H (70-110) mg/dL Calcium 8.3 L (8.4-10.2) mg/dL Troponin I (0.000-0.034) ng/mL Lipase (23-300) U/L Urine Protein (Negative) Urine Blood (Negative) Ur Leukocyte Esterase (Negative) Urine RBC (0-5) /hpf Hyaline Casts (0-2) /lpf Urine Mucus (None) /hpf 02/13/22 Range/Units 06:07 RBC (4.30-5.90) m/uL Hgb (13.0-17.5) gm/dL Hct (39.0-53.0) % MCH (25.0-35.0) pg MCHC (31.0-37.0) g/dL RDW (11.5-15.5) % Plt Count (150-450) k/uL Lymphocytes # (Manual) (1.0-4.8) k/uL ABG pH 7.47 H (7.35-7.45) ABG pCO2 (35-45) mmHg ABG pO2 (83-108) mmHg ABG HCO3 28 H (21-25) mmol/L ABG Total CO2 29 H (19-24) mmol/L ABG O2 Saturation 98.6 H (94-97) % ABG Hematocrit 23 L (34.0-46.0) % VBG pH (7.31-7.41) VBG pCO2 (37-51) mmHg VBG HCO3 (24-28) mmol/L Hemoglobin 7.5 L (13.0-17.5) gm/dL Sodium (137-145) mmol/L Potassium (3.5-5.1) mmol/L Chloride (98-107) mmol/L BUN (9-20) mg/dL Creatinine (0.66-1.25) mg/dL Glucose (74-99) mg/dL POC Glucose (mg/dL) (70-110) mg/dL Calcium (8.4-10.2) mg/dL Troponin I (0.000-0.034) ng/mL Lipase (23-300) U/L Urine Protein (Negative) Urine Blood (Negative) Ur Leukocyte Esterase (Negative) Urine RBC (0-5) /hpf Hyaline Casts (0-2) /lpf Urine Mucus (None) /hpf Microbiology - Last 24 Hours (Table) 02/12/22 19:25 Gram Stain - Preliminary Abdomen Wound Culture - Preliminary 02/12/22 19:25 Anaerobic Culture - Preliminary Abdomen Assessment and Plan (1) Abdominal wall defect, acquired Current Visit: Yes Status: Acute Code(s): M95.8 - OTH ACQUIRED DEFORMITIES OF MUSCULOSKELETAL SYSTEM SNOMED Code(s): 181223361624453 (2) Pneumonia Current Visit: Yes Status: Acute Code(s): J18.9 - PNEUMONIA, UNSPECIFIED ORGANISM SNOMED Code(s): 099243536 Plan: 1patient presented to hospital with confusion and increasing shortness of breath in this patient with evidence of ascites effusion and 3+ edema feet likely related to fluid overload underlying pneumonia less likely but not entirely excluded. 2patient with a nonhealing lower abdominal wound however there is no evidence of any surrounding redness and CT abdominal pelvis did not mention any abscess. 3patient with renal insufficiency and high risk of nephrotoxicity from vancomycin. 4continue with Zosyn however discontinue vancomycin to decrease risk of ne phrotoxicity. We will follow on clinical condition and cultures to further adjust medication if needed Thank you for this consultation will follow this patient along with you Time with Patient: Greater than 30
[2022-02-13 23:44] LABS: Glucose,Whole Blood 151 mg/dL (70-110)
[2022-02-14] MEDS: IPRATROPIUM-ALBUTEROL 3 ML NEB INHALATION SCH ×6 (00:17→19:12)
[2022-02-14] MEDS ORDERED: VANCOMYCIN 1,750 MG in SODIUM CHLORIDE 0.9% 500 ML 500 ML IVPB SCH (03:00)
[2022-02-14] MEDS: SODIUM CHLORIDE 0.9% 1,000 ML IV SCH ×2 (03:13→17:08)
[2022-02-14 04:44] LABS: Anisocytosis Slight; HCT 27.6 % (39.0-53.0); HGB 7.6 gm/dL (13.0-17.5); Hypochromasia Marked; MCH 22.4 pg (25.0-35.0); MCHC 27.7 g/dL (31.0-37.0); MCV 80.8 fL (80.0-100.0); Mean Platelet Volume 7.4; Microcytosis Slight; Platelet Count 397 k/uL (150-450); Poikilocytosis Slight; RBC 3.41 m/uL (4.30-5.90); RDW 18.6 % (11.5-15.5); WBC 8.5 k/uL (3.8-10.6)
[2022-02-14 05:11] LABS: Calcium 7.9 mg/dL (8.4-10.2); Potassium 4.1 mmol/L (3.5-5.1)
[2022-02-14] MEDS ORDERED: Magnesium Replacement Protocol 1 EACH MISC MISCELLANE PRN (05:13)
[2022-02-14 05:15] LABS: Large Platelets Present; Lymphocytes # (M) 0.77 k/uL (1.0-4.8); Monocytes # (M) 0.26 k/uL (0-1.0); Neutrophils # (M) 7.48 k/uL (1.3-7.7); Neutrophils % (M) 88 %; Nucleated Red Blood Cells 0 /100 WBC (0-0); Total Cells Counted 200
[2022-02-14] MEDS: MAGNESIUM SULFATE-D5W PMX 1 GM in DEXTROSE/WATER 1 100ML.BAG IVPB SCH ×2 (05:24→06:08)
[2022-02-14 06:05] LABS: Glucose,Whole Blood 169 mg/dL (70-110)
[2022-02-14] MEDS: INSULIN ASPART (NovoLOG) 100 UNIT/ML VIAL SQ SCH ×4 (06:07→23:58)
[2022-02-14] MEDS: NOREPINEPHRINE 4 MG in SODIUM CHLORIDE 0.9% 250 ML IV SCH ×3 (06:08→17:07)
[2022-02-14 06:09] LABS: ABG Base Excess 5.3 mmol/L; ABG HCO3 29 mmol/L (21-25); ABG PCO2 39 mmHg (35-45); ABG PH 7.48 (7.35-7.45); ABG PO2 184 mmHg (83-108); ABG TCO2 30 mmol/L (19-24); Allen Test Performed? Yes
[2022-02-14 06:12] LABS: ABG Hematocrit 23 % (34.0-46.0)
[2022-02-14] MEDS: FUROSEMIDE 10 MG/ML 4 ML VIAL IV SCH (08:11)
[2022-02-14] MEDS: OXYBUTYNIN CHLORIDE 5 MG TAB PO SCH ×2 (08:11→20:33)
[2022-02-14] MEDS: PANTOPRAZOLE 40 MG/10 ML VIAL IVP SCH (08:11)
[2022-02-14] MEDS: PIPERACILLIN-TAZOBACTAM 3.375 GM in SODIUM CHLORIDE 0.9% 100 ML IVPB SCH ×3 (08:12→23:58)
[2022-02-14] MEDS: HEPARIN SODIUM,PORCINE/PF 5,000 UNIT/0.5 ML SYRINGE SQ SCH ×2 (08:12→20:33)
[2022-02-14] MEDS: CHLORHEXIDINE GLUCONATE 15 ML CUP MUCOUS MEM SCH ×2 (08:12→20:33)
--- NOTE | 2022-02-14 08:23 | XR ---
EXAMINATION TYPE: XR chest 1V portable DATE OF EXAM: 02/14/2022 COMPARISON: 02/13/2022 HISTORY: Central line placement TECHNIQUE: Single frontal view of the chest is obtained. FINDINGS: ET and NG tube noted with bilateral infiltrate and pleural effusion. Central line stable. Coarsened interstitium. No sizable pneumothorax. Atherosclerotic change aorta. Heart size prominent. IMPRESSION: Pleural parenchymal changes stable correlate for CHF otherwise consider pneumonia.
[2022-02-14] MEDS ORDERED: SODIUM CHLORIDE 0.9% 1,000 ML IV ONE (09:00)
[2022-02-14] MEDS: LACTULOSE 20 GM/30 ML CUP PO SCH ×2 (09:38→20:33)
[2022-02-14 11:22] LABS: Glucose,Whole Blood 188 mg/dL (70-110)
--- NOTE | 2022-02-14 12:04 | P.PN ---
Subjective Progress Note Date: 02/14/22 Patient has a known history of hypertension, hyperlipidemia, aortic stenosis, chronic kidney disease, anemia congestive heart failure, diabetes and recent history of bowel resection for bleeding diverticulitis. Patient is not on anticoagulation due to history of GI bleed Patient follows in the office with Dr. Nash. Patient initially presented to the ER for mild confusion and worsening abdominal pain. Upon initial assessment patient was found to have worsening shortness of breath, lower extremity edema. We have been consulted to see the patient for congestive heart failure and elevated troponins. Patient remains in the ICU intubated and sedated. He continues on Levophed for hypotension. Patient had a short run of atrial tachycardia last night. He been sinus rhythm with a controlled ventricle rate. She has been diuresing well. Will continue with IV Lasix Objective - Vital Signs Vital signs: Vital Signs Temp 99.2 F 02/14/22 04:00 Pulse 75 02/14/22 08:25 Resp 20 02/14/22 07:00 BP 98/55 02/14/22 07:00 Pulse Ox 99 02/14/22 07:00 FiO2 40 02/14/22 07:28 Intake & Output 02/13/22 02/14/22 02/14/22 18:59 06:59 18:59 Intake Total 2091.177 1822.796 187.204 Output Total 2780 1070 45 Balance -688.823 752.796 142.204 Weight 108 kg 97.5 kg Intake: IV 1148 972 81 Piperacillin-Tazobactam 3 200 .375 gm In Sodium Chloride 0.9% 100 ml @ 25 mls/hr IVPB Q8H [facility] Rx#: [id number] Sodium Chloride 0.9% 1, 900 900 75 000 ml @ 75 mls/hr IV . [id number] [facility] Rx#:[id number] pressure bag 48 72 6 Intake, IV Titration 863.177 540.796 76.204 Amount Norepinephrine 4 mg In 580.834 325.892 Sodium Chloride 0.9% 250 ml @ 0.05 MCG/KG/MIN 20. 738 mls/hr IV .[id number] [facility] Rx#:[id number] propofoL 1,000 mg In 282.343 214.904 76.204 Empty Bag 1 bag @ 5 MCG/ KG/MIN 3.266 mls/hr IV . Q24H [facility] Rx#:[id number] Tube Feeding 50 220 30 Other 30 90 Output: Urine 2780 1070 45 Other: Voiding Method Indwelling Catheter Indwelling Catheter ABP, PAP, CO, CI - Last Documented Arterial Blood Pressure 98/46 - Exam PHYSICAL EXAM: VITAL SIGNS: Reviewed. GENERAL: Well-developed in no acute distress. HEENT: Head is normocephalic. Pupils are equal, round. Sclerae anicteric. Mucous membranes of the mouth are moist. NECK: Supple. No JVD or thyromegaly RESPIRATORY: Patient is mechanically ventilated CARDIO: Regular rate and rhythm. S1 and S2 heard. No murmur or gallops. EXTREMITIES: Normal range of motion. No clubbing or cyanosis. Peripheral pulses intact. Negative for bilateral lower extremity edema NEURO: sedated - Labs CBC & Chem 7: 02/14/22 04:08 02/14/22 04:08 Labs: Abnormal Lab Results - Last 24 Hours (Table) 02/13/22 02/13/22 02/13/22 Range/Units 06:02 11:06 11:41 RBC (4.30-5.90) m/uL Hgb (13.0-17.5) gm/dL Hct (39.0-53.0) % MCH (25.0-35.0) pg MCHC (31.0-37.0) g/dL RDW (11.5-15.5) % Lymphocytes # (Manual) (1.0-4.8) k/uL ABG pH 7.49 H (7.35-7.45) ABG pO2 245 H (83-108) mmHg ABG HCO3 27 H (21-25) mmol/L ABG Total CO2 28 H (19-24) mmol/L ABG O2 Saturation 100.0 H (94-97) % ABG Hematocrit 23 L (34.0-46.0) % Hemoglobin 7.5 L (13.0-17.5) gm/dL Sodium (137-145) mmol/L BUN (9-20) mg/dL Glucose (74-99) mg/dL POC Glucose (mg/dL) 130 H (70-110) mg/dL Calcium (8.4-10.2) mg/dL Procalcitonin 0.37 H (0.02-0.09) ng/mL 02/13/22 02/13/22 02/14/22 Range/Units 18:13 23:43 04:08 RBC 3.41 L (4.30-5.90) m/uL Hgb 7.6 L (13.0-17.5) gm/dL Hct 27.6 L (39.0-53.0) % MCH 22.4 L (25.0-35.0) pg MCHC 27.7 L (31.0-37.0) g/dL RDW 18.6 H (11.5-15.5) % Lymphocytes # (Manual) 0.77 L (1.0-4.8) k/uL ABG pH (7.35-7.45) ABG pO2 (83-108) mmHg ABG HCO3 (21-25) mmol/L ABG Total CO2 (19-24) mmol/L ABG O2 Saturation (94-97) % ABG Hematocrit (34.0-46.0) % Hemoglobin (13.0-17.5) gm/dL Sodium (137-145) mmol/L BUN (9-20) mg/dL Glucose (74-99) mg/dL POC Glucose (mg/dL) 143 H 151 H (70-110) mg/dL Calcium (8.4-10.2) mg/dL Procalcitonin (0.02-0.09) ng/mL 02/14/22 02/14/22 02/14/22 Range/Units 04:08 06:01 06:03 RBC (4.30-5.90) m/uL Hgb (13.0-17.5) gm/dL Hct (39.0-53.0) % MCH (25.0-35.0) pg MCHC (31.0-37.0) g/dL RDW (11.5-15.5) % Lymphocytes # (Manual) (1.0-4.8) k/uL ABG pH 7.48 H (7.35-7.45) ABG pO2 184 H (83-108) mmHg ABG HCO3 29 H (21-25) mmol/L ABG Total CO2 30 H (19-24) mmol/L ABG O2 Saturation 100.0 H (94-97) % ABG Hematocrit 23 L (34.0-46.0) % Hemoglobin 7.6 L (13.0-17.5) gm/dL Sodium 135 L (137-145) mmol/L BUN 41 H (9-20) mg/dL Glucose 149 H (74-99) mg/dL POC Glucose (mg/dL) 169 H (70-110) mg/dL Calcium 7.9 L (8.4-10.2) mg/dL Procalcitonin (0.02-0.09) ng/mL Microbiology - Last 24 Hours (Table) 02/13/22 15:57 Gram Stain - Preliminary Sputum Sputum Culture - Preliminary 02/12/22 16:57 Blood Culture - Preliminary Blood No Growth after 24 hours 02/12/22 19:25 Gram Stain - Preliminary Abdomen Wound Culture - Preliminary Assessment and Plan Assessment: Acute on chronic diastolic congestive heart failure Elevated troponin secondary hypoxia Severe aortic stenosis Plan: IV Lasix 40 mg daily Continue with all other current cardiac medications Further recommendations based on clinical course The above impression and plan of care have been discussed and directed by the signing physician. Janice Barrios, nurse practitioner, acting as scribe for signing physician.
--- NOTE | 2022-02-14 12:55 | P.PN ---
Subjective Progress Note Date: 02/14/22 Principal diagnosis: Acute hypoxic and hypercapnic respiratory failure This is a 76-year-old white male, history of colon resection about a month ago, patient had severe diverticulosis and recurrent lower GI bleeding from diverticulosis. Patient had a very complicated postoperative course, and he was eventually discharged to [facility]. Yesterday the patient was supposed to be cleared to go home however the patient developed worsening confusion, abdominal pain at the incision site, and small wound dehiscence from his previous surgical site in the abdomen. Patient was brought into the ER, and he was noted to be hypoxic and hypercapnic. Patient was initially placed on BiPAP, and I had a discussion with the ER physician after reviewing the ABG that the patient may have to be intubated however the ER physician felt that the patient was clinically better than his ABG and did not require intubation. However as soon as the patient was transferred to the ICU, he was clearly noted to be not tolerating the BiPAP, and his ABG was getting worse. Patient was intubated placed on mechanical ventilation and broad-spectrum antibiotics. No history could be obtained from the patient and there is no family members around, most of the information was obtained from the chart. Workup in the ER included a chest x-ray which showed patchy infiltrates, possible pneumonia, and some pulmonary vascular congestion. Patient was also noted to be anemic with a hemoglobin of 8.6, patient does have chronic anemia. CT of the abdomen and pelvis showed ascites and fecal impaction. Patient did receive Lasix in the ER, and his BNP level was a bit elevated. Pro-calcitonin level is pending. Patient is known to have history of severe aortic stenosis. ABG this morning showed a pO2 of 245 pCO2 of 36 pH of 7.49 and this was on 60% FiO2 and PEEP of 10. Hence his FiO2 will be decreased down to 45%. Otherwise we'll continue the same vent settings, mostly a rate of 2012 volume 500 FiO2 will be cut down, and PEEP will remain at 10 for now. ABG in the ER yesterday showed a pO2 of 127 pCO2 92 pH of 7.14 and this ABG was shortly before he was intubated. Clearly the patient had a picture of acute hypercapnic respiratory failure. Chest x-ray today after line placement showed adequate placement of the right subclavian triple-lumen catheter, his endotracheal tube was noted to be relatively high above the mima and this will be advanced. There is evidence of airspace consolidation within the lower lobes bilaterally. Small pleural effusions noted. Specially on the left side. But the ultrasound showed moderate right-sided pleural effusion and small left-sided pleural effusion. CT of the brain showed no evidence of acute process Reevaluated today on 02/14/22, remains in the ICU, intubated and mechanically ventilated. Patient is on assist control rate of 20, volume 500 FiO2 40% and I cut it down to 35% PEEP of 8 and I cut it down to 5. ABG today showed a pO2 of 184 pCO2 39 pH of 7.48. Patient is requiring norepinephrine at 0.09 mcg/kg/m is on IV fluid 0.9 normal saline at 75 mL per hour and he is on propofol at 40 mcg/kg/m. Receiving vital HPI 30 mL per hour. Patient remains on Zosyn, considering his CVP is only 7 and urine output is marginal I will go ahead and recommended a liter bolus of 0.9 normal saline. We will cut down the propofol and hopefully cut down on the norepinephrine if his blood pressure improves. May improve with fluid bolus and with cutting down the dose of propofol WBC count is 8.5 hemoglobin 7.6 hematocrit is 27.6 basic metabolic profile is normal bicarb is normal BUN is 41 creatinine 1.2, improving since yesterday creatinine was 1.51 a chest x-ray showed pleural parenchymal changes, air bronchogram noted in the left retrocardiac area, highly suspicious for pneumonia. Objective - Vital Signs Vital signs: Vital Signs Temp 98.6 F 02/14/22 12:00 Pulse 78 02/14/22 12:15 Resp 20 02/14/22 12:00 BP 97/58 02/14/22 12:00 Pulse Ox 100 02/14/22 12:00 FiO2 35 02/14/22 12:00 Intake & Output 02/13/22 02/14/22 02/14/22 18:59 06:59 18:59 Intake Total 2091.177 7821.892 5991.846 Output Total 2780 1070 1685 Balance -688.823 752.796 356.846 Weight 108 kg 97.5 kg 97.5 kg Intake: IV 3619 044 7405 Piperacillin-Tazobactam 3 200 .375 gm In Sodium Chloride 0.9% 100 ml @ 25 mls/hr IVPB Q8H [facility] Rx#: [id number] Sodium Chloride 0.9% 1, 951 297 3031 000 ml @ 75 mls/hr IV . [id number] [facility] Rx#:[id number] pressure bag 48 72 36 Intake, IV Titration 863.177 540.796 390.846 Amount Norepinephrine 4 mg In 580.834 325.892 214.642 Sodium Chloride 0.9% 250 ml @ 0.05 MCG/KG/MIN 20. 738 mls/hr IV .[id number] [facility] Rx#:[id number] propofoL 1,000 mg In 282.343 214.904 176.204 Empty Bag 1 bag @ 5 MCG/ KG/MIN 3.266 mls/hr IV . Q24H [facility] Rx#:[id number] Tube Feeding 50 220 180 Other 30 90 60 Output: Urine 2780 1070 1685 Other: Voiding Method Indwelling Catheter Indwelling Catheter Indwelling Catheter ABP, PAP, CO, CI - Last Documented Arterial Blood Pressure 99/46 - Exam Physical Exam: Revealed a 76-year-old white male in no distress. Intubated and mechanically ventilated. Patient is sedated Head: Atraumatic, normocephalic. Endotracheal tube and orogastric tube are intact. HEENT:[Neck is supple.] [No neck masses.] [No thyromegaly.] [No JVD.] PERRLA, EOMI, nonicteric, chronic masses, no JVD. Chest: Symmetrical chest expansion, left basilar crackles noted right side is relatively clear. Cardiac Exam: [Normal S1 and S2, no S3 gallop, 3/6 systolic murmur thought the precordium mostly over the aortic area. Abdomen: Obese,wound dehiscence with 2 areas, lower area has pustular discharge Extremities: [No clubbing, no edema, no cyanosis.] Neurological Exam: Cannot fully assess, patient is intubated, sedated, on propofol. Psychiatric: Could not assess. Skin: Evidence of wound dehiscence and purulent drainage from abdominal incision. - Labs CBC & Chem 7: 02/14/22 04:08 02/14/22 04:08 Labs: Abnormal Lab Results - Last 24 Hours (Table) 02/13/22 02/13/22 02/13/22 Range/Units 06:02 18:13 23:43 RBC (4.30-5.90) m/uL Hgb (13.0-17.5) gm/dL Hct (39.0-53.0) % MCH (25.0-35.0) pg MCHC (31.0-37.0) g/dL RDW (11.5-15.5) % Lymphocytes # (Manual) (1.0-4.8) k/uL ABG pH (7.35-7.45) ABG pO2 (83-108) mmHg ABG HCO3 (21-25) mmol/L ABG Total CO2 (19-24) mmol/L ABG O2 Saturation (94-97) % ABG Hematocrit (34.0-46.0) % Hemoglobin (13.0-17.5) gm/dL Sodium (137-145) mmol/L BUN (9-20) mg/dL Glucose (74-99) mg/dL POC Glucose (mg/dL) 143 H 151 H (70-110) mg/dL Calcium (8.4-10.2) mg/dL Procalcitonin 0.37 H (0.02-0.09) ng/mL 02/14/22 02/14/22 02/14/22 Range/Units 04:08 04:08 06:01 RBC 3.41 L (4.30-5.90) m/uL Hgb 7.6 L (13.0-17.5) gm/dL Hct 27.6 L (39.0-53.0) % MCH 22.4 L (25.0-35.0) pg MCHC 27.7 L (31.0-37.0) g/dL RDW 18.6 H (11.5-15.5) % Lymphocytes # (Manual) 0.77 L (1.0-4.8) k/uL ABG pH 7.48 H (7.35-7.45) ABG pO2 184 H (83-108) mmHg ABG HCO3 29 H (21-25) mmol/L ABG Total CO2 30 H (19-24) mmol/L ABG O2 Saturation 100.0 H (94-97) % ABG Hematocrit 23 L (34.0-46.0) % Hemoglobin 7.6 L (13.0-17.5) gm/dL Sodium 135 L (137-145) mmol/L BUN 41 H (9-20) mg/dL Glucose 149 H (74-99) mg/dL POC Glucose (mg/dL) (70-110) mg/dL Calcium 7.9 L (8.4-10.2) mg/dL Procalcitonin (0.02-0.09) ng/mL 02/14/22 02/14/22 Range/Units 06:03 11:20 RBC (4.30-5.90) m/uL Hgb (13.0-17.5) gm/dL Hct (39.0-53.0) % MCH (25.0-35.0) pg MCHC (31.0-37.0) g/dL RDW (11.5-15.5) % Lymphocytes # (Manual) (1.0-4.8) k/uL ABG pH (7.35-7.45) ABG pO2 (83-108) mmHg ABG HCO3 (21-25) mmol/L ABG Total CO2 (19-24) mmol/L ABG O2 Saturation (94-97) % ABG Hematocrit (34.0-46.0) % Hemoglobin (13.0-17.5) gm/dL Sodium (137-145) mmol/L BUN (9-20) mg/dL Glucose (74-99) mg/dL POC Glucose (mg/dL) 169 H 188 H (70-110) mg/dL Calcium (8.4-10.2) mg/dL Procalcitonin (0.02-0.09) ng/mL Microbiology - Last 24 Hours (Table) 02/13/22 07:00 Blood Culture - Preliminary Blood No Growth after 24 hours 02/13/22 15:57 Gram Stain - Preliminary Sputum Sputum Culture - Preliminary 02/12/22 16:57 Blood Culture - Preliminary Blood No Growth after 24 hours Assessment and Plan Assessment: Impression: Acute hypoxic and hypercapnic respiratory failure Sepsis and septic shock strongly suspected. Healthcare acquired pneumonia Surgical site/wound infection/abdomen with wound dehiscence. Acute kidney injury, improving with fluids and this morning the patient received diuretics Severe aortic stenosis, documented on previous admissions. 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 Recommendation: Continue ventilatory support, not quite ready for weaning Continue hemodynamic support patient is on low-dose norepinephrine. Broad-spectrum antibiotics with infectious disease consultation Consulted general surgery for wound dehiscence and surgical wound infection Continue Zosyn for now empirically Cultures from sputum blood and wound are pending GI and DVT prophylaxis. Hemodynamic support. Titrate norepinephrine accordingly to maintain a mean arterial pressure of 65 Patient is not ready for any weaning at this point. Prognosis remains guarded. Updated his family at bedside on his overall clinical status We will continue to follow. Critical care time is over 30 minutes Time with Patient: Greater than 30
--- NOTE | 2022-02-14 13:11 | P.CONS ---
History of Present Illness - Reason for Consult Consult date: 02/14/22 wound care - History of Present Illness This is a 76-year-old patient being seen in ICU for a nonhealing ulceration to the abdominal incision. Patient had surgery with Dr. hawkins at an [facility]. He just recently had the isamar removed from the site. Patient has not had the distal portion of the area incision well approximated. Patient is a resident at an extended care facility where honey gel is being utilized for wound treatment. The ulceration measuring approximately 4 x 3 x 0.4 cm with significant amount of slough noted and minimal granulation. The wound edges are attached to the wound base no tunneling or undermining noted at this time. Significant amount of slough present to accurately determine depth. Suture noted midline of ulceration. Review of systems: Unable to obtain due to intubation Physical exam: General Appearance: Alert, cooperative, no distress, appears stated age. Skin: See HPI all other Skin color, texture, tugor normal, no rashes or lesions. Neurologic: Alert oriented x3 Assessment: 1. Nonhealing ulceration with fatty layer exposure abdomen 2. Surgical wound dehiscence Plan: 1. Apply Santyl, saline moistened gauze, dry gauze and secured paper tape. Change daily. Thank you for the consultation any questions please contact the wound care center DNP note has been reviewed and discussed with Dr. Rand and the impression and plan of care has been directed as dictated. Past Medical History Past Medical History: Blood Disorder, Diabetes Mellitus, Hyperlipidemia, Hypertension Additional Past Medical History / Comment(s): Past rectal bleeds, polycythemia, NIDDM, recently had lower 5 teeth extracted, R lower leg edema, heart murmur, DDD with occasional back pain. History of Any Multi-Drug Resistant Organisms: None Reported Past Surgical History: Bowel Resection, Tonsillectomy Additional Past Surgical History / Comment(s): Colonoscopies, bilateral cataract removals/lens implants, R mastoid surgery at age 4 yrs. Past Anesthesia/Blood Transfusion Reactions: No Reported Reaction Past Psychological History: No Psychological Hx Reported Smoking Status: Former smoker Past Alcohol Use History: None Reported Past Drug Use History: None Reported - Past Family History Father History Unknown: Yes Family Medical History: No Reported History Additional Family Medical History / Comment(s): Father was healthy and lived into his 90s. Mother History Unknown: Yes Medications and Allergies Home Medications Medication Instructions Recorded Confirmed Type Aspirin EC [Ecotrin Low Dose] 81 mg PO HS 12/10/21 02/12/22 History Multivitamins, Thera [Multivitamin 1 tab PO HS 12/10/21 02/12/22 History (formulary)] [place]-3/Dha/Epa/Fish Oil [Fish Oil 1 cap PO HS 12/10/21 02/12/22 History 1,000 mg Softgel] Oxybutynin Chloride [Ditropan] 5 mg PO BID 12/10/21 02/12/22 History Pravastatin Sodium [Pravachol] 40 mg PO HS@199912/10/21 02/12/22 History Testosterone Cypionate 200 mg IM Q10D 12/10/21 02/12/22 History [Depo-Testosterone] metFORMIN HCL [Glucophage] 500 mg PO BID 12/10/21 02/12/22 History Pantoprazole [Protonix] 40 mg PO DAILY #30 tab 12/13/21 02/12/22 Rx Acetaminophen Tab [Tylenol Tab] 1,000 mg PO Q6H PRN 02/12/22 02/12/22 History Ferrocite 324mg 1 tab PO HS 02/12/22 02/12/22 History Furosemide [Lasix] 40 mg PO DAILY 02/12/22 02/12/22 History Healthshake 1 dose PO BID@0800,1600 02/12/22 02/12/22 History Melatonin 3 mg PO HS PRN 02/12/22 02/12/22 History Psyllium Husk 100% [Metamucil 1 tbsp PO DAILY 02/12/22 02/12/22 History Packet] Allergies Allergy/AdvReac Type Severity Reaction Status Date / Time No Known Allergies Allergy Verified 02/12/22 16:03 Physical Exam Vitals: Vital Signs Temp Pulse Resp BP Pulse Ox FiO2 02/14/22 13:00 81 20 99/59 100 02/14/22 12:15 78 02/14/22 12:03 77 02/14/22 12:00 98.6 F 76 20 97/58 100 35 02/14/22 11:24 35 02/14/22 11:00 77 20 92/55 100 02/14/22 10:00 77 20 100/59 100 02/14/22 09:00 76 22 95/58 99 35 02/14/22 08:25 75 02/14/22 08:13 75 02/14/22 08:00 98.5 F 75 20 98/55 100 35 02/14/22 07:28 40 02/14/22 07:00 73 20 98/55 99 40 02/14/22 06:00 76 20 97/58 99 40 02/14/22 05:00 74 20 105/62 97 40 02/14/22 04:47 71 02/14/22 04:36 76 02/14/22 04:32 40 02/14/22 04:00 99.2 F 73 20 104/59 98 40 02/14/22 03:00 74 20 99/65 99 40 02/14/22 02:00 79 20 106/68 98 40 02/14/22 01:00 73 21 92/54 98 40 02/14/22 00:33 75 02/14/22 00:18 77 02/14/22 00:10 40 02/14/22 00:00 98.5 F 74 20 89/52 97 40 02/13/22 23:00 73 20 89/52 97 40 02/13/22 22:00 77 20 92/52 96 40 02/13/22 21:25 40 02/13/22 21:24 69 02/13/22 21:11 74 02/13/22 21:00 71 20 91/54 97 100 02/13/22 20:00 97.9 F 73 20 92/55 97 40 02/13/22 19:00 75 20 100/59 100 02/13/22 18:00 73 20 99/61 100 02/13/22 17:00 76 20 101/63 100 02/13/22 16:00 77 20 97/61 99 40 02/13/22 15:57 40 02/13/22 15:19 77 02/13/22 15:11 40 02/13/22 15:00 77 20 99/63 100 40 02/13/22 14:00 79 20 98/61 100 Intake and Output 02/13/22 02/14/22 02/14/22 22:59 06:59 14:59 Intake Total 8804.358 3349.127 2152.846 Output Total 2004 303 0270 Balance -469.549 793.127 232.846 Intake: IV 195 287 2987 Piperacillin-Tazobactam 3 100 .375 gm In Sodium Chloride 0.9% 100 ml @ 25 mls/hr IVPB Q8H [facility] Rx#: [id number] Sodium Chloride 0.9% 1, 923 593 3894 000 ml @ 75 mls/hr IV . [id number] [facility] Rx#:[id number] pressure bag 48 48 42 Intake, IV Titration 417.451 380.127 390.846 Amount Norepinephrine 4 mg In 228.674 254.000 214.642 Sodium Chloride 0.9% 250 ml @ 0.05 MCG/KG/MIN 20. 738 mls/hr IV .[id number] [facility] Rx#:[id number] propofoL 1,000 mg In 188.777 126.127 176.204 Empty Bag 1 bag @ 5 MCG/ KG/MIN 3.266 mls/hr IV . Q24H [facility] Rx#:[id number] Tube Feeding 90 170 210 Other 60 60 60 Output: Urine 2004 661 6770 Other: Voiding Method Indwelling Catheter Indwelling Catheter Indwelling Catheter Weight 97.5 kg 97.5 kg ABP, PAP, CO, CI - Last 8 Hours Arterial Blood Pressure 96/44 Arterial Blood Pressure 99/46 Arterial Blood Pressure 100/46 Arterial Blood Pressure 95/44 Arterial Blood Pressure 103/47 Arterial Blood Pressure 97/46 Arterial Blood Pressure 98/46 Arterial Blood Pressure 101/49 Results CBC & Chem 7: 02/14/22 04:08 02/14/22 04:08 Labs: Abnormal Lab Results - Last 24 Hours (Table) 02/13/22 02/13/22 02/13/22 Range/Units 06:02 18:13 23:43 RBC (4.30-5.90) m/uL Hgb (13.0-17.5) gm/dL Hct (39.0-53.0) % MCH (25.0-35.0) pg MCHC (31.0-37.0) g/dL RDW (11.5-15.5) % Lymphocytes # (Manual) (1.0-4.8) k/uL ABG pH (7.35-7.45) ABG pO2 (83-108) mmHg ABG HCO3 (21-25) mmol/L ABG Total CO2 (19-24) mmol/L ABG O2 Saturation (94-97) % ABG Hematocrit (34.0-46.0) % Hemoglobin (13.0-17.5) gm/dL Sodium (137-145) mmol/L BUN (9-20) mg/dL Glucose (74-99) mg/dL POC Glucose (mg/dL) 143 H 151 H (70-110) mg/dL Calcium (8.4-10.2) mg/dL Procalcitonin 0.37 H (0.02-0.09) ng/mL 02/14/22 02/14/22 02/14/22 Range/Units 04:08 04:08 06:01 RBC 3.41 L (4.30-5.90) m/uL Hgb 7.6 L (13.0-17.5) gm/dL Hct 27.6 L (39.0-53.0) % MCH 22.4 L (25.0-35.0) pg MCHC 27.7 L (31.0-37.0) g/dL RDW 18.6 H (11.5-15.5) % Lymphocytes # (Manual) 0.77 L (1.0-4.8) k/uL ABG pH 7.48 H (7.35-7.45) ABG pO2 184 H (83-108) mmHg ABG HCO3 29 H (21-25) mmol/L ABG Total CO2 30 H (19-24) mmol/L ABG O2 Saturation 100.0 H (94-97) % ABG Hematocrit 23 L (34.0-46.0) % Hemoglobin 7.6 L (13.0-17.5) gm/dL Sodium 135 L (137-145) mmol/L BUN 41 H (9-20) mg/dL Glucose 149 H (74-99) mg/dL POC Glucose (mg/dL) (70-110) mg/dL Calcium 7.9 L (8.4-10.2) mg/dL Procalcitonin (0.02-0.09) ng/mL 02/14/22 02/14/22 Range/Units 06:03 11:20 RBC (4.30-5.90) m/uL Hgb (13.0-17.5) gm/dL Hct (39.0-53.0) % MCH (25.0-35.0) pg MCHC (31.0-37.0) g/dL RDW (11.5-15.5) % Lymphocytes # (Manual) (1.0-4.8) k/uL ABG pH (7.35-7.45) ABG pO2 (83-108) mmHg ABG HCO3 (21-25) mmol/L ABG Total CO2 (19-24) mmol/L ABG O2 Saturation (94-97) % ABG Hematocrit (34.0-46.0) % Hemoglobin (13.0-17.5) gm/dL Sodium (137-145) mmol/L BUN (9-20) mg/dL Glucose (74-99) mg/dL POC Glucose (mg/dL) 169 H 188 H (70-110) mg/dL Calcium (8.4-10.2) mg/dL Procalcitonin (0.02-0.09) ng/mL Microbiology - Last 24 Hours (Table) 02/13/22 07:00 Blood Culture - Preliminary Blood No Growth after 24 hours 02/13/22 15:57 Gram Stain - Preliminary Sputum Sputum Culture - Preliminary 02/12/22 16:57 Blood Culture - Preliminary Blood No Growth after 24 hours Assessment and Plan (1) Non-pressure chronic ulcer of skin of other sites with fat layer exposed Current Visit: Yes Status: Acute Code(s): L98.492 - NON-PRS CHRONIC ULCER OF SKIN OF SITES W FAT LAYER EXPOSED SNOMED Code(s): 10071362 (2) Dehiscence of incision Current Visit: Yes Status: Acute Code(s): T81.31XA - DISRUPTION OF EXTERNAL OPERATION (SURGICAL) WOUND, NEC, INIT SNOMED Code(s): 00667335
--- NOTE | 2022-02-14 13:17 | P.PN ---
Subjective Progress Note Date: 02/14/22 CHIEF COMPLAINT: Respiratory failure HISTORY OF PRESENT ILLNESS: Patient remains intubated and on mechanical intubation in the ICU. Patient is requiring norepinephrine. The cutting back on the sedation today. Patient's chest x-ray showing suspicion of pneumonia. He remains on antibiotics. Patient seen by wound care service regarding the abdominal wound. They've added Santyl to his dressing changes. Patient has not had no increase or change in output from the abdominal incision. Afebrile. WBC is 8.5 hgb 7.6 cr 1.22 wound culture pending Patient seen and examined with Dr. Sullivan PHYSICAL EXAM: VITAL SIGNS: Reviewed. GENERAL: Intubated and sedated ABDOMEN: Soft. Obese. Nondistended. Mid abdominal incision with middle portion of incision with scabbed area no drainage. Distal portion of incision area of dehisced about 1 cm in size with clearish drainage. ASSESSMENT: 1. Abdominal wound with no evidence of abscess noted on computed tomography scan. Per Dr. Sullivan no evidence of abdominal wound infection 2. 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 History of surgical site infection during last hospitalization 4. Constipation PLAN: -Continue local wound care -No surgical intervention planned -Continue ICU management and supportive care -Continue to feed for nutrition support -Agree with lactulose for constipation Physician Tungsten Tender note has been reviewed by physician. Signing provider agrees with the documented findings, assessment, and plan of care. Objective - Vital Signs Vital signs: Vital Signs Temp 98.6 F 02/14/22 12:00 Pulse 81 02/14/22 13:00 Resp 20 02/14/22 13:00 BP 99/59 02/14/22 13:00 Pulse Ox 100 02/14/22 13:00 FiO2 35 02/14/22 12:00 Intake & Output 02/13/22 02/14/22 02/14/22 18:59 06:59 18:59 Intake Total 2091.177 2934.618 8602.846 Output Total 2780 1070 1920 Balance -688.823 752.796 232.846 Weight 108 kg 97.5 kg 97.5 kg Intake: IV 2787 322 6736 Piperacillin-Tazobactam 3 200 .375 gm In Sodium Chloride 0.9% 100 ml @ 25 mls/hr IVPB Q8H [facility] Rx#: [id number] Sodium Chloride 0.9% 1, 368 302 6530 000 ml @ 75 mls/hr IV . [id number] [facility] Rx#:[id number] pressure bag 48 72 42 Intake, IV Titration 863.177 540.796 390.846 Amount Norepinephrine 4 mg In 580.834 325.892 214.642 Sodium Chloride 0.9% 250 ml @ 0.05 MCG/KG/MIN 20. 738 mls/hr IV .[id number] [facility] Rx#:[id number] propofoL 1,000 mg In 282.343 214.904 176.204 Empty Bag 1 bag @ 5 MCG/ KG/MIN 3.266 mls/hr IV . Q24H [facility] Rx#:[id number] Tube Feeding 50 220 210 Other 30 90 60 Output: Urine 2780 1070 1920 Other: Voiding Method Indwelling Catheter Indwelling Catheter Indwelling Catheter ABP, PAP, CO, CI - Last Documented Arterial Blood Pressure 96/44 - Labs CBC & Chem 7: 02/14/22 04:08 02/14/22 04:08 Labs: Abnormal Lab Results - Last 24 Hours (Table) 02/13/22 02/13/22 02/13/22 Range/Units 06:02 18:13 23:43 RBC (4.30-5.90) m/uL Hgb (13.0-17.5) gm/dL Hct (39.0-53.0) % MCH (25.0-35.0) pg MCHC (31.0-37.0) g/dL RDW (11.5-15.5) % Lymphocytes # (Manual) (1.0-4.8) k/uL ABG pH (7.35-7.45) ABG pO2 (83-108) mmHg ABG HCO3 (21-25) mmol/L ABG Total CO2 (19-24) mmol/L ABG O2 Saturation (94-97) % ABG Hematocrit (34.0-46.0) % Hemoglobin (13.0-17.5) gm/dL Sodium (137-145) mmol/L BUN (9-20) mg/dL Glucose (74-99) mg/dL POC Glucose (mg/dL) 143 H 151 H (70-110) mg/dL Calcium (8.4-10.2) mg/dL Procalcitonin 0.37 H (0.02-0.09) ng/mL 02/14/22 02/14/22 02/14/22 Range/Units 04:08 04:08 06:01 RBC 3.41 L (4.30-5.90) m/uL Hgb 7.6 L (13.0-17.5) gm/dL Hct 27.6 L (39.0-53.0) % MCH 22.4 L (25.0-35.0) pg MCHC 27.7 L (31.0-37.0) g/dL RDW 18.6 H (11.5-15.5) % Lymphocytes # (Manual) 0.77 L (1.0-4.8) k/uL ABG pH 7.48 H (7.35-7.45) ABG pO2 184 H (83-108) mmHg ABG HCO3 29 H (21-25) mmol/L ABG Total CO2 30 H (19-24) mmol/L ABG O2 Saturation 100.0 H (94-97) % ABG Hematocrit 23 L (34.0-46.0) % Hemoglobin 7.6 L (13.0-17.5) gm/dL Sodium 135 L (137-145) mmol/L BUN 41 H (9-20) mg/dL Glucose 149 H (74-99) mg/dL POC Glucose (mg/dL) (70-110) mg/dL Calcium 7.9 L (8.4-10.2) mg/dL Procalcitonin (0.02-0.09) ng/mL 02/14/22 02/14/22 Range/Units 06:03 11:20 RBC (4.30-5.90) m/uL Hgb (13.0-17.5) gm/dL Hct (39.0-53.0) % MCH (25.0-35.0) pg MCHC (31.0-37.0) g/dL RDW (11.5-15.5) % Lymphocytes # (Manual) (1.0-4.8) k/uL ABG pH (7.35-7.45) ABG pO2 (83-108) mmHg ABG HCO3 (21-25) mmol/L ABG Total CO2 (19-24) mmol/L ABG O2 Saturation (94-97) % ABG Hematocrit (34.0-46.0) % Hemoglobin (13.0-17.5) gm/dL Sodium (137-145) mmol/L BUN (9-20) mg/dL Glucose (74-99) mg/dL POC Glucose (mg/dL) 169 H 188 H (70-110) mg/dL Calcium (8.4-10.2) mg/dL Procalcitonin (0.02-0.09) ng/mL Microbiology - Last 24 Hours (Table) 02/13/22 07:00 Blood Culture - Preliminary Blood No Growth after 24 hours 02/13/22 15:57 Gram Stain - Preliminary Sputum Sputum Culture - Preliminary 02/12/22 16:57 Blood Culture - Preliminary Blood No Growth after 24 hours
--- NOTE | 2022-02-14 14:28 | P.PN ---
Subjective Progress Note Date: 02/14/22 Pt is stable, has not yet had a sedation holiday. Sputum Cx gram stain is + for yeast, GPCs. Gen: Intubated, sedated HEENT: normocephalic, atraumatic, good hearing acuity, moist mucous membranes Resp: Ventilator dependent CVS: good distal perfusion x 4, GI: soft, wound dehiscence with 2 areas, lower area has pustular discharge : no SPT, no CVAT, victoria catheter is present MSK: no pitting edema, no clubbing Neuro: non-focal Assessment/plan: 76 year old male with DM , severe aortic stenosis , recent surgical repair of bleeding acute diverticulitis about a month ago. brought in today for altered mental status , found to have acute hypercapnic respiratory failure , possible pneumonia , bilateral lower extremity edema Acute Hypoxemic and Hypercarbic Respiratory Failure Septic Shock with Toxic/Metabolic Encephalopathy Community Acquired Pneumonia Surgical Site Infection s/p Bowel Resection Acute Kidney Injury - Admit to ICU, telemetry - ICU, ID consultation appreciated - Wound Care consult - Surgery consult - Vancomycin, Zosyn - f/u BCx, Wound Cx - IVF - Levophed - Propofol - Monitor I/Os, UOP - Daily labs Severe Aortic Stenosis Chronic Diastolic Heart Failure - strict I/Os, daily weights - cardiology consult - f/u Echo DM - Insulin sliding scale Q6hr guarded prognosis ICU care full code DVT PPX heparin sc tid Objective - Vital Signs Vital signs: Vital Signs Temp 98.6 F 02/14/22 12:00 Pulse 81 02/14/22 13:00 Resp 20 02/14/22 13:00 BP 99/59 02/14/22 13:00 Pulse Ox 100 02/14/22 13:00 FiO2 35 02/14/22 12:00 Intake & Output 02/13/22 02/14/22 02/14/22 18:59 06:59 18:59 Intake Total 2091.177 6070.961 0932.530 Output Total 2780 1070 1920 Balance -688.823 752.796 274.530 Weight 108 kg 97.5 kg 97.5 kg Intake: IV 4664 248 6148 Piperacillin-Tazobactam 3 200 .375 gm In Sodium Chloride 0.9% 100 ml @ 25 mls/hr IVPB Q8H BRAD Rx#: [id number] Sodium Chloride 0.9% 1, 834 035 8785 000 ml @ 75 mls/hr IV . [id number] BRAD Rx#:[id number] pressure bag 48 72 42 Intake, IV Titration 863.177 540.796 432.530 Amount Norepinephrine 4 mg In 580.834 325.892 256.326 Sodium Chloride 0.9% 250 ml @ 0.05 MCG/KG/MIN 20. 738 mls/hr IV .[id number] BARD Rx#:[id number] propofoL 1,000 mg In 282.343 214.904 176.204 Empty Bag 1 bag @ 5 MCG/ KG/MIN 3.266 mls/hr IV . Q24H BRAD Rx#:[id number] Tube Feeding 50 220 210 Other 30 90 60 Output: Urine 2780 1070 1920 Other: Voiding Method Indwelling Catheter Indwelling Catheter Indwelling Catheter ABP, PAP, CO, CI - Last Documented Arterial Blood Pressure 96/44 - Labs CBC & Chem 7: 02/14/22 04:08 02/14/22 04:08 Labs: Abnormal Lab Results - Last 24 Hours (Table) 02/13/22 02/13/22 02/13/22 Range/Units 06:02 18:13 23:43 RBC (4.30-5.90) m/uL Hgb (13.0-17.5) gm/dL Hct (39.0-53.0) % MCH (25.0-35.0) pg MCHC (31.0-37.0) g/dL RDW (11.5-15.5) % Lymphocytes # (Manual) (1.0-4.8) k/uL ABG pH (7.35-7.45) ABG pO2 (83-108) mmHg ABG HCO3 (21-25) mmol/L ABG Total CO2 (19-24) mmol/L ABG O2 Saturation (94-97) % ABG Hematocrit (34.0-46.0) % Hemoglobin (13.0-17.5) gm/dL Sodium (137-145) mmol/L BUN (9-20) mg/dL Glucose (74-99) mg/dL POC Glucose (mg/dL) 143 H 151 H (70-110) mg/dL Calcium (8.4-10.2) mg/dL Procalcitonin 0.37 H (0.02-0.09) ng/mL 02/14/22 02/14/22 02/14/22 Range/Units 04:08 04:08 06:01 RBC 3.41 L (4.30-5.90) m/uL Hgb 7.6 L (13.0-17.5) gm/dL Hct 27.6 L (39.0-53.0) % MCH 22.4 L (25.0-35.0) pg MCHC 27.7 L (31.0-37.0) g/dL RDW 18.6 H (11.5-15.5) % Lymphocytes # (Manual) 0.77 L (1.0-4.8) k/uL ABG pH 7.48 H (7.35-7.45) ABG pO2 184 H (83-108) mmHg ABG HCO3 29 H (21-25) mmol/L ABG Total CO2 30 H (19-24) mmol/L ABG O2 Saturation 100.0 H (94-97) % ABG Hematocrit 23 L (34.0-46.0) % Hemoglobin 7.6 L (13.0-17.5) gm/dL Sodium 135 L (137-145) mmol/L BUN 41 H (9-20) mg/dL Glucose 149 H (74-99) mg/dL POC Glucose (mg/dL) (70-110) mg/dL Calcium 7.9 L (8.4-10.2) mg/dL Procalcitonin (0.02-0.09) ng/mL 02/14/22 02/14/22 Range/Units 06:03 11:20 RBC (4.30-5.90) m/uL Hgb (13.0-17.5) gm/dL Hct (39.0-53.0) % MCH (25.0-35.0) pg MCHC (31.0-37.0) g/dL RDW (11.5-15.5) % Lymphocytes # (Manual) (1.0-4.8) k/uL ABG pH (7.35-7.45) ABG pO2 (83-108) mmHg ABG HCO3 (21-25) mmol/L ABG Total CO2 (19-24) mmol/L ABG O2 Saturation (94-97) % ABG Hematocrit (34.0-46.0) % Hemoglobin (13.0-17.5) gm/dL Sodium (137-145) mmol/L BUN (9-20) mg/dL Glucose (74-99) mg/dL POC Glucose (mg/dL) 169 H 188 H (70-110) mg/dL Calcium (8.4-10.2) mg/dL Procalcitonin (0.02-0.09) ng/mL Microbiology - Last 24 Hours (Table) 02/13/22 07:00 Blood Culture - Preliminary Blood No Growth after 24 hours 02/13/22 15:57 Gram Stain - Preliminary Sputum Sputum Culture - Preliminary 02/12/22 16:57 Blood Culture - Preliminary Blood No Growth after 24 hours
[2022-02-14] MEDS: COLLAGENASE 250 UNIT/GM OINTMENT 30 GM TUBE TOPICAL SCH (14:33)
[2022-02-14] MEDS: ACETAMINOPHEN TAB 325 MG TAB PO PRN (15:32)
--- NOTE | 2022-02-14 15:52 | P.PN ---
Subjective Progress Note Date: 02/14/22 Principal diagnosis: Possible sepsis Patient is a 76-year-old male with a past medical history again for diverticulitis recurrent GI bleed in this patient who is status post laparotomy and no anterior resection on 01/15/2022 subsequently the [facility] was at [facility] the patient was brought for evaluation of confusion and increasing shortness of breath patient did not get intubated. On today's evaluation that is 02/14/2022, the patient remains to be intubated on the vent, FiO2 is currently stable at 35%, no significant purulent secretion through the ET or diarrhea reported by the nursing staff, patient is requiring Levophed for pressor support Objective - Vital Signs Vital signs: Vital Signs Temp 98.6 F 02/14/22 12:00 Pulse 78 02/14/22 12:15 Resp 20 02/14/22 12:00 BP 97/58 02/14/22 12:00 Pulse Ox 100 02/14/22 12:00 FiO2 35 02/14/22 12:00 Intake & Output 02/13/22 02/14/22 02/14/22 18:59 06:59 18:59 Intake Total 2091.177 8140.443 3352.846 Output Total 2780 1070 1685 Balance -688.823 752.796 356.846 Weight 108 kg 97.5 kg 97.5 kg Intake: IV 5113 768 5148 Piperacillin-Tazobactam 3 200 .375 gm In Sodium Chloride 0.9% 100 ml @ 25 mls/hr IVPB Q8H [facility]AD Rx#: [id number] Sodium Chloride 0.9% 1, 709 341 9738 000 ml @ 75 mls/hr IV . [id number] [facility] Rx#:[id number] pressure bag 48 72 36 Intake, IV Titration 863.177 540.796 390.846 Amount Norepinephrine 4 mg In 580.834 325.892 214.642 Sodium Chloride 0.9% 250 ml @ 0.05 MCG/KG/MIN 20. 738 mls/hr IV .[id number] [facility]AD Rx#:[id number] propofoL 1,000 mg In 282.343 214.904 176.204 Empty Bag 1 bag @ 5 MCG/ KG/MIN 3.266 mls/hr IV . Q24H [facility]AD Rx#:[id number] Tube Feeding 50 220 180 Other 30 90 60 Output: Urine 2780 1070 1685 Other: Voiding Method Indwelling Catheter Indwelling Catheter Indwelling Catheter ABP, PAP, CO, CI - Last Documented Arterial Blood Pressure 99/46 - Exam GENERAL DESCRIPTION: An elderly male intubated on the vent RESPIRATORY SYSTEM: Unlabored breathing , decreased breath sounds at bases HEART: S1 S2 regular rate and rhythm , ABDOMEN: Soft , no tenderness EXTREMITIES: One plus edema feet - Labs CBC & Chem 7: 02/14/22 04:08 02/14/22 04:08 Labs: Abnormal Lab Results - Last 24 Hours (Table) 02/13/22 02/13/22 02/13/22 Range/Units 06:02 18:13 23:43 RBC (4.30-5.90) m/uL Hgb (13.0-17.5) gm/dL Hct (39.0-53.0) % MCH (25.0-35.0) pg MCHC (31.0-37.0) g/dL RDW (11.5-15.5) % Lymphocytes # (Manual) (1.0-4.8) k/uL ABG pH (7.35-7.45) ABG pO2 (83-108) mmHg ABG HCO3 (21-25) mmol/L ABG Total CO2 (19-24) mmol/L ABG O2 Saturation (94-97) % ABG Hematocrit (34.0-46.0) % Hemoglobin (13.0-17.5) gm/dL Sodium (137-145) mmol/L BUN (9-20) mg/dL Glucose (74-99) mg/dL POC Glucose (mg/dL) 143 H 151 H (70-110) mg/dL Calcium (8.4-10.2) mg/dL Procalcitonin 0.37 H (0.02-0.09) ng/mL 02/14/22 02/14/22 02/14/22 Range/Units 04:08 04:08 06:01 RBC 3.41 L (4.30-5.90) m/uL Hgb 7.6 L (13.0-17.5) gm/dL Hct 27.6 L (39.0-53.0) % MCH 22.4 L (25.0-35.0) pg MCHC 27.7 L (31.0-37.0) g/dL RDW 18.6 H (11.5-15.5) % Lymphocytes # (Manual) 0.77 L (1.0-4.8) k/uL ABG pH 7.48 H (7.35-7.45) ABG pO2 184 H (83-108) mmHg ABG HCO3 29 H (21-25) mmol/L ABG Total CO2 30 H (19-24) mmol/L ABG O2 Saturation 100.0 H (94-97) % ABG Hematocrit 23 L (34.0-46.0) % Hemoglobin 7.6 L (13.0-17.5) gm/dL Sodium 135 L (137-145) mmol/L BUN 41 H (9-20) mg/dL Glucose 149 H (74-99) mg/dL POC Glucose (mg/dL) (70-110) mg/dL Calcium 7.9 L (8.4-10.2) mg/dL Procalcitonin (0.02-0.09) ng/mL 02/14/22 02/14/22 Range/Units 06:03 11:20 RBC (4.30-5.90) m/uL Hgb (13.0-17.5) gm/dL Hct (39.0-53.0) % MCH (25.0-35.0) pg MCHC (31.0-37.0) g/dL RDW (11.5-15.5) % Lymphocytes # (Manual) (1.0-4.8) k/uL ABG pH (7.35-7.45) ABG pO2 (83-108) mmHg ABG HCO3 (21-25) mmol/L ABG Total CO2 (19-24) mmol/L ABG O2 Saturation (94-97) % ABG Hematocrit (34.0-46.0) % Hemoglobin (13.0-17.5) gm/dL Sodium (137-145) mmol/L BUN (9-20) mg/dL Glucose (74-99) mg/dL POC Glucose (mg/dL) 169 H 188 H (70-110) mg/dL Calcium (8.4-10.2) mg/dL Procalcitonin (0.02-0.09) ng/mL Microbiology - Last 24 Hours (Table) 02/13/22 07:00 Blood Culture - Preliminary Blood No Growth after 24 hours 02/13/22 15:57 Gram Stain - Preliminary Sputum Sputum Culture - Preliminary 02/12/22 16:57 Blood Culture - Preliminary Blood No Growth after 24 hours Assessment and Plan (1) Pneumonia Current Visit: Yes Status: Acute Code(s): J18.9 - PNEUMONIA, UNSPECIFIED ORGANISM SNOMED Code(s): 829176676 (2) Abdominal wall defect, acquired Current Visit: Yes Status: Acute Code(s): M95.8 - OTH ACQUIRED DEFORMITIES OF MUSCULOSKELETAL SYSTEM SNOMED Code(s): 589471177264811 Plan: 1patient presented to hospital with confusion and increasing shortness of breath in this patient with evidence of ascites effusion and 3+ edema feet likely related to fluid overload underlying pneumonia less likely but not entirely excluded. 2patient with a nonhealing lower abdominal wound however there is no evidence of any surrounding redness and CT abdominal pelvis did not mention any abscess. 3patient with renal insufficiency and high risk of nephrotoxicity from vancomycin. 4patient to continue with Zosyn while waiting for the culture finalized and monitor clinical course closely Time with Patient: Less than 30
[2022-02-14 17:11] LABS: Glucose,Whole Blood 182 mg/dL (70-110)
[2022-02-14] MEDS: ASPIRIN 81 MG PO SCH (20:33)
[2022-02-14 23:59] LABS: Glucose,Whole Blood 186 mg/dL (70-110)
[2022-02-15] MEDS: IPRATROPIUM-ALBUTEROL 3 ML NEB INHALATION SCH ×6 (00:35→20:25)
[2022-02-15] MEDS: NOREPINEPHRINE 4 MG in SODIUM CHLORIDE 0.9% 250 ML IV SCH ×2 (04:46→20:47)
[2022-02-15 05:48] LABS: Calcium 7.7 mg/dL (8.4-10.2); Potassium 3.9 mmol/L (3.5-5.1)
[2022-02-15 05:52] LABS: ABG HCO3 28 mmol/L (21-25); ABG Oxygen Saturation 99.4 % (94-97); ABG PCO2 38 mmHg (35-45); ABG PH 7.49 (7.35-7.45); ABG PO2 100 mmHg (83-108); ABG TCO2 30 mmol/L (19-24); Allen Test Performed? Yes
[2022-02-15 05:52] LABS: Anisocytosis Slight; HCT 27.5 % (39.0-53.0); HGB 7.7 gm/dL (13.0-17.5); Hypochromasia Marked; MCH 22.8 pg (25.0-35.0); MCHC 28.1 g/dL (31.0-37.0); Microcytosis Slight; Platelet Count 356 k/uL (150-450); Poikilocytosis Moderate; WBC 8.1 k/uL (3.8-10.6)
[2022-02-15 05:54] LABS: ABG Hematocrit 23 % (34.0-46.0)
[2022-02-15] MEDS ORDERED: Potassium Replacement Protocol 1 EACH MISC MISCELLANE PRN (06:06)
[2022-02-15] MEDS ORDERED: POTASSIUM BICARBONATE/CIT AC 20 MEQ TABLET.EFF NG-TUBE SCH (06:07)
[2022-02-15 06:17] LABS: Glucose,Whole Blood 170 mg/dL (70-110)
[2022-02-15] MEDS: INSULIN ASPART (NovoLOG) 100 UNIT/ML VIAL SQ SCH ×4 (06:20→23:18)
[2022-02-15 06:29] LABS: Lymphocytes # (M) 0.57 k/uL (1.0-4.8); Monocytes # (M) 0.89 k/uL (0-1.0); Neutrophils # (M) 6.64 k/uL (1.3-7.7); Neutrophils % (M) 82 %; Nucleated Red Blood Cells 0 /100 WBC (0-0); Total Cells Counted 100
--- NOTE | 2022-02-15 07:23 | XR ---
EXAMINATION TYPE: XR chest 1V portable DATE OF EXAM: 02/15/2022 5:56 AM COMPARISON: Chest radiograph from one day prior. TECHNIQUE: XR chest 1V portable Portable AP radiograph of the chest. CLINICAL INDICATION:Male, 76 years old with history of Tube placement; FINDINGS: Lungs/Pleura: Airspace opacities are seen throughout the lungs most pronounced in the right lower lob e There is no evidence of , or pneumothorax. Possible blunting of the costophrenic angles. Pulmonary vascularity: Pulmonary vascular congestion. Heart/mediastinum: Cardiomediastinal silhouette is enlarged and stable. Musculoskeletal: No acute osseous pathology. Other findings: None Lines/Tubes: Endotracheal tube with distal tip 2.8 cm above the mima Nasogastric tube with its distal tip and side-port projecting under the diaphragm. IMPRESSION: Cardiomegaly, pulmonary vascular congestion and bilateral pleural effusions. Correlate with BNP for c ongestive heart failure.
--- NOTE | 2022-02-15 08:58 | P.PN ---
Progress Note - Text Progress Note Date: 02/15/22 Patient remains on the ventilator. Vitals remain unchanged. Abdomen is soft nontender. Restrict failure with possible pneumonia. Patient to receive ICU care.
[2022-02-15] MEDS: HEPARIN SODIUM,PORCINE/PF 5,000 UNIT/0.5 ML SYRINGE SQ SCH ×2 (09:06→20:24)
[2022-02-15] MEDS: CHLORHEXIDINE GLUCONATE 15 ML CUP MUCOUS MEM SCH ×2 (09:06→20:24)
[2022-02-15] MEDS: FUROSEMIDE 10 MG/ML 4 ML VIAL IV SCH ×2 (09:06→20:24)
[2022-02-15] MEDS: LACTULOSE 20 GM/30 ML CUP PO SCH ×2 (09:06→20:24)
[2022-02-15] MEDS: PANTOPRAZOLE 40 MG/10 ML VIAL IVP SCH (09:06)
[2022-02-15] MEDS: SODIUM CHLORIDE 0.9% 1,000 ML IV SCH (09:07)
[2022-02-15] MEDS: OXYBUTYNIN CHLORIDE 5 MG TAB PO SCH ×2 (09:07→20:25)
[2022-02-15] MEDS: PIPERACILLIN-TAZOBACTAM 3.375 GM in SODIUM CHLORIDE 0.9% 100 ML IVPB SCH ×2 (09:08→15:49)
[2022-02-15] MEDS: COLLAGENASE 250 UNIT/GM OINTMENT 30 GM TUBE TOPICAL SCH (09:08)
[2022-02-15 11:31] LABS: Glucose,Whole Blood 146 mg/dL (70-110)
[2022-02-15 12:14] LABS: ABG Base Excess 4.5 mmol/L; ABG HCO3 29 mmol/L (21-25); ABG Hematocrit 25 % (34.0-46.0); ABG Oxygen Saturation 97.3 % (94-97); ABG PCO2 43 mmHg (35-45); ABG PH 7.43 (7.35-7.45); ABG PO2 85 mmHg (83-108); ABG TCO2 30 mmol/L (19-24)
--- NOTE | 2022-02-15 13:05 | P.PN ---
Subjective Progress Note Date: 02/15/22 Pt is stable, has not yet had a sedation holiday. Sputum Cx gram stain is + for yeast, GPCs. Gen: Intubated, sedated HEENT: normocephalic, atraumatic, good hearing acuity, moist mucous membranes Resp: Ventilator dependent CVS: good distal perfusion x 4, GI: soft, wound dehiscence with 2 areas, lower area has pustular discharge : no SPT, no CVAT, victoria catheter is present MSK: no pitting edema, no clubbing Neuro: non-focal Assessment/plan: 76 year old male with DM , severe aortic stenosis , recent surgical repair of bleeding acute diverticulitis about a month ago. brought in today for altered mental status , found to have acute hypercapnic respiratory failure , possible pneumonia , bilateral lower extremity edema Acute Hypoxemic and Hypercarbic Respiratory Failure Septic Shock with Toxic/Metabolic Encephalopathy Community Acquired Pneumonia Surgical Site Infection s/p Bowel Resection Acute Kidney Injury - Admit to ICU, telemetry - ICU, ID consultation appreciated - Wound Care consult - Surgery consult - Vancomycin, Zosyn - f/u BCx - NGTD, Wound Cx - staph aureus - IVF - Levophed - Propofol - Monitor I/Os, UOP - Daily labs Severe Aortic Stenosis Chronic Diastolic Heart Failure - strict I/Os, daily weights - cardiology consult - f/u Echo DM - Insulin sliding scale Q6hr guarded prognosis ICU care full code DVT PPX heparin sc tid Objective - Vital Signs Vital signs: Vital Signs Temp 99.9 F H 02/15/22 12:00 Pulse 122 H 02/15/22 12:35 Resp 20 02/15/22 12:35 BP 103/60 02/15/22 09:00 Pulse Ox 97 02/15/22 12:00 FiO2 35 02/15/22 12:24 Intake & Output 02/14/22 02/15/22 02/15/22 18:59 06:59 18:59 Intake Total 3178.368 1733.577 792.333 Output Total 2400 710 1380 Balance 570.620 2405.577 -587.667 Weight 97.5 kg 101.2 kg Intake: IV 1897 972 561 Piperacillin-Tazobactam 3 75 .375 gm In Sodium Chloride 0.9% 100 ml @ 25 mls/hr IVPB Q8HR [facility]AD Rx# :[id number] Sodium Chloride 0.9% 1, 1825 900 450 000 ml @ 75 mls/hr IV . [id number] [facility]AD Rx#:[id number] pressure bag 72 72 36 Intake, IV Titration 791.368 435.577 163.333 Amount Norepinephrine 4 mg In 438.199 328.174 75.972 Sodium Chloride 0.9% 250 ml @ 0.05 MCG/KG/MIN 20. 738 mls/hr IV .[id number] [facility]AD Rx#:[id number] propofoL 1,000 mg In 353.169 107.403 87.361 Empty Bag 1 bag @ 5 MCG/ KG/MIN 3.266 mls/hr IV . Q24H [facility]AD Rx#:[id number] Tube Feeding 400 266 38 Other 90 60 30 Output: Urine 2400 710 1380 Other: Voiding Method Indwelling Catheter Indwelling Catheter Indwelling Catheter # Bowel Movements 0 0 ABP, PAP, CO, CI - Last Documented Arterial Blood Pressure 111/56 - Labs CBC & Chem 7: 02/15/22 05:25 02/15/22 05:25 Labs: Abnormal Lab Results - Last 24 Hours (Table) 02/14/22 02/14/22 02/15/22 Range/Units 17:10 23:57 05:21 RBC (4.30-5.90) m/uL Hgb (13.0-17.5) gm/dL Hct (39.0-53.0) % MCH (25.0-35.0) pg MCHC (31.0-37.0) g/dL RDW (11.5-15.5) % Lymphocytes # (Manual) (1.0-4.8) k/uL ABG pH 7.49 H (7.35-7.45) ABG HCO3 28 H (21-25) mmol/L ABG Total CO2 30 H (19-24) mmol/L ABG O2 Saturation 99.4 H (94-97) % ABG Hematocrit 23 L (34.0-46.0) % Hemoglobin 7.5 L (13.0-17.5) gm/dL BUN (9-20) mg/dL Glucose (74-99) mg/dL POC Glucose (mg/dL) 182 H 186 H (70-110) mg/dL Calcium (8.4-10.2) mg/dL 02/15/22 02/15/22 02/15/22 Range/Units 05:25 05:25 06:15 RBC 3.40 L (4.30-5.90) m/uL Hgb 7.7 L (13.0-17.5) gm/dL Hct 27.5 L (39.0-53.0) % MCH 22.8 L (25.0-35.0) pg MCHC 28.1 L (31.0-37.0) g/dL RDW 18.0 H (11.5-15.5) % Lymphocytes # (Manual) 0.57 L (1.0-4.8) k/uL ABG pH (7.35-7.45) ABG HCO3 (21-25) mmol/L ABG Total CO2 (19-24) mmol/L ABG O2 Saturation (94-97) % ABG Hematocrit (34.0-46.0) % Hemoglobin (13.0-17.5) gm/dL BUN 30 H (9-20) mg/dL Glucose 149 H (74-99) mg/dL POC Glucose (mg/dL) 170 H (70-110) mg/dL Calcium 7.7 L (8.4-10.2) mg/dL 02/15/22 02/15/22 Range/Units 11:30 12:11 RBC (4.30-5.90) m/uL Hgb (13.0-17.5) gm/dL Hct (39.0-53.0) % MCH (25.0-35.0) pg MCHC (31.0-37.0) g/dL RDW (11.5-15.5) % Lymphocytes # (Manual) (1.0-4.8) k/uL ABG pH (7.35-7.45) ABG HCO3 29 H (21-25) mmol/L ABG Total CO2 30 H (19-24) mmol/L ABG O2 Saturation 97.3 H (94-97) % ABG Hematocrit 25 L (34.0-46.0) % Hemoglobin 8.2 L (13.0-17.5) gm/dL BUN (9-20) mg/dL Glucose (74-99) mg/dL POC Glucose (mg/dL) 146 H (70-110) mg/dL Calcium (8.4-10.2) mg/dL Microbiology - Last 24 Hours (Table) 02/13/22 15:57 Gram Stain - Preliminary Sputum Sputum Culture - Preliminary Yeast species 02/13/22 07:00 Blood Culture - Preliminary Blood No Growth after 48 hours 02/12/22 19:25 Gram Stain - Preliminary Abdomen Wound Culture - Preliminary Presumptive Staph aureus 02/12/22 16:57 Blood Culture - Preliminary Blood No Growth after 48 hours
--- NOTE | 2022-02-15 13:06 | P.PN ---
Subjective Progress Note Date: 02/15/22 Principal diagnosis: Acute hypoxic and hypercapnic respiratory failure This is a 76-year-old white male, history of colon resection about a month ago, patient had severe diverticulosis and recurrent lower GI bleeding from diverticulosis. Patient had a very complicated postoperative course, and he was eventually discharged to [facility]. Yesterday the patient was supposed to be cleared to go home however the patient developed worsening confusion, abdominal pain at the incision site, and small wound dehiscence from his previous surgical site in the abdomen. Patient was brought into the ER, and he was noted to be hypoxic and hypercapnic. Patient was initially placed on BiPAP, and I had a discussion with the ER physician after reviewing the ABG that the patient may have to be intubated however the ER physician felt that the patient was clinically better than his ABG and did not require intubation. However as soon as the patient was transferred to the ICU, he was clearly noted to be not tolerating the BiPAP, and his ABG was getting worse. Patient was intubated placed on mechanical ventilation and broad-spectrum antibiotics. No history could be obtained from the patient and there is no family members around, most of the information was obtained from the chart. Workup in the ER included a chest x-ray which showed patchy infiltrates, possible pneumonia, and some pulmonary vascular congestion. Patient was also noted to be anemic with a hemoglobin of 8.6, patient does have chronic anemia. CT of the abdomen and pelvis showed ascites and fecal impaction. Patient did receive Lasix in the ER, and his BNP level was a bit elevated. Pro-calcitonin level is pending. Patient is known to have history of severe aortic stenosis. ABG this morning showed a pO2 of 245 pCO2 of 36 pH of 7.49 and this was on 60% FiO2 and PEEP of 10. Hence his FiO2 will be decreased down to 45%. Otherwise we'll continue the same vent settings, mostly a rate of 2012 volume 500 FiO2 will be cut down, and PEEP will remain at 10 for now. ABG in the ER yesterday showed a pO2 of 127 pCO2 92 pH of 7.14 and this ABG was shortly before he was intubated. Clearly the patient had a picture of acute hypercapnic respiratory failure. Chest x-ray today after line placement showed adequate placement of the right subclavian triple-lumen catheter, his endotracheal tube was noted to be relatively high above the mima and this will be advanced. There is evidence of airspace consolidation within the lower lobes bilaterally. Small pleural effusions noted. Specially on the left side. But the ultrasound showed moderate right-sided pleural effusion and small left-sided pleural effusion. CT of the brain showed no evidence of acute process Reevaluated today on 02/14/22, remains in the ICU, intubated and mechanically ventilated. Patient is on assist control rate of 20, volume 500 FiO2 40% and I cut it down to 35% PEEP of 8 and I cut it down to 5. ABG today showed a pO2 of 184 pCO2 39 pH of 7.48. Patient is requiring norepinephrine at 0.09 mcg/kg/m is on IV fluid 0.9 normal saline at 75 mL per hour and he is on propofol at 40 mcg/kg/m. Receiving vital HPI 30 mL per hour. Patient remains on Zosyn, considering his CVP is only 7 and urine output is marginal I will go ahead and recommended a liter bolus of 0.9 normal saline. We will cut down the propofol and hopefully cut down on the norepinephrine if his blood pressure improves. May improve with fluid bolus and with cutting down the dose of propofol WBC count is 8.5 hemoglobin 7.6 hematocrit is 27.6 basic metabolic profile is normal bicarb is normal BUN is 41 creatinine 1.2, improving since yesterday creatinine was 1.51 a chest x-ray showed pleural parenchymal changes, air bronchogram noted in the left retrocardiac area, highly suspicious for pneumonia. Reevaluated today on 02/15/22, patient remains on the ventilator, his on assist control rate of 20 to light and 500 FiO2 35% PEEP of 5 ABG showed a pO2 of 100 pCO2 38 pH of 7.49. Patient remains on antibiotics in the form of Zosyn he is also on diuretics, the diuretics was increased since the patient continues to have findings suggestive of mild fluid overload and he also has findings suggestive of pneumonia. Chest x-ray is showing cardiomegaly with pulmonary vascular congestion and bilateral pleural effusion and bibasilar airspace disease WBC count is 8.1 hemoglobin is 7.7, basic metabolic profile is normal renal profile is normal, creatinine has been steadily improving since admission, it is 1.01 today. Sputum cultures are negative except for some yeast species and his wound culture is showing presumptive staph aureus, final sensitivities pending. In the meantime the patient is on Zosyn. He did receive vancomycin initially. Objective - Vital Signs Vital signs: Vital Signs Temp 99.9 F H 02/15/22 12:00 Pulse 122 H 02/15/22 12:35 Resp 20 02/15/22 12:35 BP 103/60 02/15/22 09:00 Pulse Ox 97 02/15/22 12:00 FiO2 35 02/15/22 12:24 Intake & Output 02/14/22 02/15/22 02/15/22 18:59 06:59 18:59 Intake Total 3178.368 1733.577 792.333 Output Total 2400 710 1380 Balance 225.930 6455.577 -587.667 Weight 97.5 kg 101.2 kg Intake: IV 1897 972 561 Piperacillin-Tazobactam 3 75 .375 gm In Sodium Chloride 0.9% 100 ml @ 25 mls/hr IVPB Q8HR BRAD Rx# :[id number] Sodium Chloride 0.9% 1, 1825 900 450 000 ml @ 75 mls/hr IV . [id number] BRAD Rx#:[id number] pressure bag 72 72 36 Intake, IV Titration 791.368 435.577 163.333 Amount Norepinephrine 4 mg In 438.199 328.174 75.972 Sodium Chloride 0.9% 250 ml @ 0.05 MCG/KG/MIN 20. 738 mls/hr IV .[id number] BRAD Rx#:[id number] propofoL 1,000 mg In 353.169 107.403 87.361 Empty Bag 1 bag @ 5 MCG/ KG/MIN 3.266 mls/hr IV . Q24H BRAD Rx#:[id number] Tube Feeding 400 266 38 Other 90 60 30 Output: Urine 2400 710 1380 Other: Voiding Method Indwelling Catheter Indwelling Catheter Indwelling Catheter # Bowel Movements 0 0 ABP, PAP, CO, CI - Last Documented Arterial Blood Pressure 111/56 - Exam Physical Exam: Revealed a 76-year-old white male in no distress. Intubated and mechanically ventilated. Head: Atraumatic, normocephalic. Endotracheal tube and orogastric tube are intact. HEENT:[Neck is supple.] [No neck masses.] [No thyromegaly.] [No JVD.] PERRLA, EOMI, nonicteric, chronic masses, no JVD. Chest: Symmetrical chest expansion, final crackles at the bases. Cardiac Exam: [Normal S1 and S2, no S3 gallop, 3/6 systolic murmur thought the precordium mostly over the aortic area. Abdomen: Obese,wound dehiscence with 2 areas, lower area has pustular discharge Extremities: [No clubbing, no edema, no cyanosis.] Neurological Exam: Cannot fully assess, patient is intubated, sedated, on propofol. Psychiatric: Could not assess. Skin: Evidence of wound dehiscence and purulent drainage from abdominal incisio n. - Labs CBC & Chem 7: 02/15/22 05:25 02/15/22 05:25 Labs: Abnormal Lab Results - Last 24 Hours (Table) 02/14/22 02/14/22 02/15/22 Range/Units 17:10 23:57 05:21 RBC (4.30-5.90) m/uL Hgb (13.0-17.5) gm/dL Hct (39.0-53.0) % MCH (25.0-35.0) pg MCHC (31.0-37.0) g/dL RDW (11.5-15.5) % Lymphocytes # (Manual) (1.0-4.8) k/uL ABG pH 7.49 H (7.35-7.45) ABG HCO3 28 H (21-25) mmol/L ABG Total CO2 30 H (19-24) mmol/L ABG O2 Saturation 99.4 H (94-97) % ABG Hematocrit 23 L (34.0-46.0) % Hemoglobin 7.5 L (13.0-17.5) gm/dL BUN (9-20) mg/dL Glucose (74-99) mg/dL POC Glucose (mg/dL) 182 H 186 H (70-110) mg/dL Calcium (8.4-10.2) mg/dL 02/15/22 02/15/22 02/15/22 Range/Units 05:25 05:25 06:15 RBC 3.40 L (4.30-5.90) m/uL Hgb 7.7 L (13.0-17.5) gm/dL Hct 27.5 L (39.0-53.0) % MCH 22.8 L (25.0-35.0) pg MCHC 28.1 L (31.0-37.0) g/dL RDW 18.0 H (11.5-15.5) % Lymphocytes # (Manual) 0.57 L (1.0-4.8) k/uL ABG pH (7.35-7.45) ABG HCO3 (21-25) mmol/L ABG Total CO2 (19-24) mmol/L ABG O2 Saturation (94-97) % ABG Hematocrit (34.0-46.0) % Hemoglobin (13.0-17.5) gm/dL BUN 30 H (9-20) mg/dL Glucose 149 H (74-99) mg/dL POC Glucose (mg/dL) 170 H (70-110) mg/dL Calcium 7.7 L (8.4-10.2) mg/dL 02/15/22 02/15/22 Range/Units 11:30 12:11 RBC (4.30-5.90) m/uL Hgb (13.0-17.5) gm/dL Hct (39.0-53.0) % MCH (25.0-35.0) pg MCHC (31.0-37.0) g/dL RDW (11.5-15.5) % Lymphocytes # (Manual) (1.0-4.8) k/uL ABG pH (7.35-7.45) ABG HCO3 29 H (21-25) mmol/L ABG Total CO2 30 H (19-24) mmol/L ABG O2 Saturation 97.3 H (94-97) % ABG Hematocrit 25 L (34.0-46.0) % Hemoglobin 8.2 L (13.0-17.5) gm/dL BUN (9-20) mg/dL Glucose (74-99) mg/dL POC Glucose (mg/dL) 146 H (70-110) mg/dL Calcium (8.4-10.2) mg/dL Microbiology - Last 24 Hours (Table) 02/13/22 15:57 Gram Stain - Preliminary Sputum Sputum Culture - Preliminary Yeast species 02/13/22 07:00 Blood Culture - Preliminary Blood No Growth after 48 hours 02/12/22 19:25 Gram Stain - Preliminary Abdomen Wound Culture - Preliminary Presumptive Staph aureus 02/12/22 16:57 Blood Culture - Preliminary Blood No Growth after 48 hours Assessment and Plan Assessment: Impression: Acute hypoxic and hypercapnic respiratory failure Sepsis and septic shock strongly suspected. Healthcare acquired pneumonia Surgical site/wound infection/abdomen with wound dehiscence. Acute kidney injury, improving with fluids and this morning the patient received diuretics Severe aortic stenosis, documented on previous admissions. 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 Recommendation: Continue ventilatory support, we will try to hold propofol today, may even consider a weaning trial of this patient. And decide whether the patient could be considered for extubation. This was actually done a few hours after I saw the patient, and I was told the patient had lots of secretions he had good weaning parameters but he had secretions and his heart rate was 130. Hence placed back on assist control mode of mechanical ventilation. Off norepinephrine for now, may use again if needed Broad-spectrum antibiotics with infectious disease consultation patient is now on Zosyn, cultures from the abdominal wound are pending Continue Zosyn for now empirically Cultures from sputum are nondiagnostic so far GI and DVT prophylaxis. Daily trials of weaning will be considered from now on Prognosis remains guarded. We will continue to follow. Critical care time is over 30 minutes Time with Patient: Greater than 30
--- NOTE | 2022-02-15 14:31 | P.PN ---
Subjective HISTORY OF PRESENTING ILLNESS Patient has a known history of hypertension, hyperlipidemia, aortic stenosis, chronic kidney disease, anemia congestive heart failure, diabetes and recent history of bowel resection for bleeding diverticulitis. Patient is not on anticoagulation due to history of GI bleed Patient follows in the office with Dr. Nash. Patient initially presented to the ER for mild confusion and worsening abdominal pain. Upon initial assessment patient was found to have worsening shortness of breath, lower extremity edema. We have been consulted to see the patient for congestive heart failure and elevated troponins. Patient remains in the ICU intubated and sedated. He continues on Levophed for hypotension. Patient had a short run of atrial tachycardia last night. He been sinus rhythm with a controlled ventricle rate. She has been diuresing well. Will continue with IV Lasix 02/15 Patient seen and examined. Patient underwent trial of sedation weaning however failed with increased heart rate. He has had intermittent episodes of tachycardia however currently sinus rhythm with normal heart rates. He has needed low dose norepinephrine currently at 0.07. He is receiving IV Lasix 40 mg twice a day. Chest x-ray performed this morning shows concern of increased pulmonary vascular congestion. Currently on FiO2 35% with a PEEP of 5. Hemoglobin stable at 7.7 and creatinine 1.0. PHYSICAL EXAMINATION Vital signs reviewed. CONSTITUTIONAL: No apparent distress, intubated and sedated HEENT: Head is normocephalic. Pupils are equal, round. Sclerae anicteric. Mucous membranes of the mouth are moist. No JVD. No carotid bruit. CHEST EXAMINATION: Decreased breath sounds at bases HEART EXAMINATION: Regular rate and rhythm. S1, S2 heard. No murmurs, gallops or rub. ABDOMEN: Soft, nontender. Positive bowel sounds. EXTREMITIES: 2+ peripheral pulses, no lower extremity edema and no calf tenderness. NEUROLOGIC EXAMINATION: Patient is sedated on vent ASSESSMENT 1. Acute on chronic diastolic heart failure 2. Non-STEMI related to hypoxia, sepsis 3. Severe aortic stenosis 4. Anemia, history of bleeding diverticulosis 5. Prior history of polycythemia 6. Episodes of atrial tachycardia 7. Hypertension currently hypotensive 8. Septic shock concern of pneumonia as source 9. Acute on chronic respiratory failure 10. Acute kidney injury likely related to ATN improving PLAN Patient appears to be slowly recovering area main presentation appears consistent with sepsis and currently still requiring vasopressors for septic shock. Continue to wean sedation and ventilator as able. Hopeful extubation tomorrow. Continue with IV Lasix 40 mg twice a day and monitor ins and outs. Objective - Vital Signs Vital signs: Vital Signs Temp 99.9 F H 02/15/22 12:00 Pulse 105 H 02/15/22 13:00 Resp 20 02/15/22 13:00 BP 103/60 02/15/22 09:00 Pulse Ox 95 02/15/22 13:00 FiO2 35 02/15/22 12:24 Intake & Output 02/14/22 02/15/22 02/15/22 18:59 06:59 18:59 Intake Total 3178.368 3542.972 0158.420 Output Total 2400 710 1490 Balance 816.916 2719.577 -487.580 Weight 97.5 kg 101.2 kg Intake: IV 1897 972 667 Piperacillin-Tazobactam 3 100 .375 gm In Sodium Chloride 0.9% 100 ml @ 25 mls/hr IVPB Q8HR [facility]AD Rx# :[id number] Sodium Chloride 0.9% 1, 1825 900 525 000 ml @ 75 mls/hr IV . [id number] [facility]AD Rx#:[id number] pressure bag 72 72 42 Intake, IV Titration 791.368 435.577 267.420 Amount Norepinephrine 4 mg In 438.199 328.174 174.823 Sodium Chloride 0.9% 250 ml @ 0.05 MCG/KG/MIN 20. 738 mls/hr IV .[id number] [facility]AD Rx#:[id number] propofoL 1,000 mg In 353.169 107.403 92.597 Empty Bag 1 bag @ 5 MCG/ KG/MIN 3.266 mls/hr IV . Q24H [facility]AD Rx#:[id number] Tube Feeding 400 266 38 Other 90 60 30 Output: Urine 2400 710 1490 Other: Voiding Method Indwelling Catheter Indwelling Catheter Indwelling Catheter # Bowel Movements 0 0 ABP, PAP, CO, CI - Last Documented Arterial Blood Pressure 97/46 - Labs CBC & Chem 7: 02/15/22 05:25 02/15/22 05:25 Labs: Abnormal Lab Results - Last 24 Hours (Table) 02/14/22 02/14/22 02/15/22 Range/Units 17:10 23:57 05:21 RBC (4.30-5.90) m/uL Hgb (13.0-17.5) gm/dL Hct (39.0-53.0) % MCH (25.0-35.0) pg MCHC (31.0-37.0) g/dL RDW (11.5-15.5) % Lymphocytes # (Manual) (1.0-4.8) k/uL ABG pH 7.49 H (7.35-7.45) ABG HCO3 28 H (21-25) mmol/L ABG Total CO2 30 H (19-24) mmol/L ABG O2 Saturation 99.4 H (94-97) % ABG Hematocrit 23 L (34.0-46.0) % Hemoglobin 7.5 L (13.0-17.5) gm/dL BUN (9-20) mg/dL Glucose (74-99) mg/dL POC Glucose (mg/dL) 182 H 186 H (70-110) mg/dL Calcium (8.4-10.2) mg/dL 02/15/22 02/15/22 02/15/22 Range/Units 05:25 05:25 06:15 RBC 3.40 L (4.30-5.90) m/uL Hgb 7.7 L (13.0-17.5) gm/dL Hct 27.5 L (39.0-53.0) % MCH 22.8 L (25.0-35.0) pg MCHC 28.1 L (31.0-37.0) g/dL RDW 18.0 H (11.5-15.5) % Lymphocytes # (Manual) 0.57 L (1.0-4.8) k/uL ABG pH (7.35-7.45) ABG HCO3 (21-25) mmol/L ABG Total CO2 (19-24) mmol/L ABG O2 Saturation (94-97) % ABG Hematocrit (34.0-46.0) % Hemoglobin (13.0-17.5) gm/dL BUN 30 H (9-20) mg/dL Glucose 149 H (74-99) mg/dL POC Glucose (mg/dL) 170 H (70-110) mg/dL Calcium 7.7 L (8.4-10.2) mg/dL 02/15/22 02/15/22 Range/Units 11:30 12:11 RBC (4.30-5.90) m/uL Hgb (13.0-17.5) gm/dL Hct (39.0-53.0) % MCH (25.0-35.0) pg MCHC (31.0-37.0) g/dL RDW (11.5-15.5) % Lymphocytes # (Manual) (1.0-4.8) k/uL ABG pH (7.35-7.45) ABG HCO3 29 H (21-25) mmol/L ABG Total CO2 30 H (19-24) mmol/L ABG O2 Saturation 97.3 H (94-97) % ABG Hematocrit 25 L (34.0-46.0) % Hemoglobin 8.2 L (13.0-17.5) gm/dL BUN (9-20) mg/dL Glucose (74-99) mg/dL POC Glucose (mg/dL) 146 H (70-110) mg/dL Calcium (8.4-10.2) mg/dL Microbiology - Last 24 Hours (Table) 02/13/22 15:57 Gram Stain - Preliminary Sputum Sputum Culture - Preliminary Yeast species 02/13/22 07:00 Blood Culture - Preliminary Blood No Growth after 48 hours 02/12/22 19:25 Gram Stain - Preliminary Abdomen Wound Culture - Preliminary Presumptive Staph aureus 02/12/22 16:57 Blood Culture - Preliminary Blood No Growth after 48 hours
[2022-02-15 17:26] LABS: Glucose,Whole Blood 152 mg/dL (70-110)
[2022-02-15] MEDS: ASPIRIN 81 MG PO SCH (20:24)
[2022-02-15 23:15] LABS: Glucose,Whole Blood 178 mg/dL (70-110)
[2022-02-15] MEDS: AMPICILLIN-SULBACTAM 3 GM in SODIUM CHLORIDE 0.9% 100 ML IVPB SCH (23:18)
[2022-02-16] MEDS: IPRATROPIUM-ALBUTEROL 3 ML NEB INHALATION SCH ×7 (00:02→23:21)
--- NOTE | 2022-02-16 00:06 | P.PN ---
Subjective Progress Note Date: 02/15/22 Principal diagnosis: Possible sepsis Patient is a 76-year-old male with a past medical history again for diverticulitis recurrent GI bleed in this patient who is status post laparotomy and no anterior resection on 01/15/2022 subsequently the [facility] the patient was brought for evaluation of confusion and increasing shortness of breath patient did not get intubated. On today's evaluation that is 02/15/2022, the patient remains to be afebrile, patient is intubated on the vent, FiO2 is stable at 35%, no significant purulent secretion through the ET or diarrhea reported by the nursing staff, patient is requiring less Levophed for pressor support per the nursing staff Objective - Vital Signs Vital signs: Vital Signs Temp 99.9 F H 02/15/22 12:00 Pulse 88 02/15/22 15:41 Resp 20 02/15/22 15:41 BP 103/60 02/15/22 09:00 Pulse Ox 95 02/15/22 13:00 FiO2 35 02/15/22 15:25 Intake & Output 02/14/22 02/15/22 02/15/22 18:59 06:59 18:59 Intake Total 3178.368 0378.054 5583.420 Output Total 2400 710 1490 Balance 283.152 9748.577 -487.580 Weight 97.5 kg 101.2 kg Intake: IV 1897 972 667 Piperacillin-Tazobactam 3 100 .375 gm In Sodium Chloride 0.9% 100 ml @ 25 mls/hr IVPB Q8HR [facility]AD Rx# :[id number] Sodium Chloride 0.9% 1, 1825 900 525 000 ml @ 75 mls/hr IV . [id number] [facility]AD Rx#:[id number] pressure bag 72 72 42 Intake, IV Titration 791.368 435.577 267.420 Amount Norepinephrine 4 mg In 438.199 328.174 174.823 Sodium Chloride 0.9% 250 ml @ 0.05 MCG/KG/MIN 20. 738 mls/hr IV .[id number] [facility]AD Rx#:[id number] propofoL 1,000 mg In 353.169 107.403 92.597 Empty Bag 1 bag @ 5 MCG/ KG/MIN 3.266 mls/hr IV . Q24H [facility]AD Rx#:[id number] Tube Feeding 400 266 38 Other 90 60 30 Output: Urine 2400 710 1490 Other: Voiding Method Indwelling Catheter Indwelling Catheter Indwelling Catheter # Bowel Movements 0 0 ABP, PAP, CO, CI - Last Documented Arterial Blood Pressure 97/46 - Exam GENERAL DESCRIPTION: An elderly male intubated on the vent RESPIRATORY SYSTEM: Unlabored breathing , decreased breath sounds at bases HEART: S1 S2 regular rate and rhythm , ABDOMEN: Soft , no tenderness EXTREMITIES: One plus edema feet - Labs CBC & Chem 7: 02/15/22 05:25 02/15/22 05:25 Labs: Abnormal Lab Results - Last 24 Hours (Table) 02/14/22 02/14/22 02/15/22 Range/Units 17:10 23:57 05:21 RBC (4.30-5.90) m/uL Hgb (13.0-17.5) gm/dL Hct (39.0-53.0) % MCH (25.0-35.0) pg MCHC (31.0-37.0) g/dL RDW (11.5-15.5) % Lymphocytes # (Manual) (1.0-4.8) k/uL ABG pH 7.49 H (7.35-7.45) ABG HCO3 28 H (21-25) mmol/L ABG Total CO2 30 H (19-24) mmol/L ABG O2 Saturation 99.4 H (94-97) % ABG Hematocrit 23 L (34.0-46.0) % Hemoglobin 7.5 L (13.0-17.5) gm/dL BUN (9-20) mg/dL Glucose (74-99) mg/dL POC Glucose (mg/dL) 182 H 186 H (70-110) mg/dL Calcium (8.4-10.2) mg/dL 02/15/22 02/15/22 02/15/22 Range/Units 05:25 05:25 06:15 RBC 3.40 L (4.30-5.90) m/uL Hgb 7.7 L (13.0-17.5) gm/dL Hct 27.5 L (39.0-53.0) % MCH 22.8 L (25.0-35.0) pg MCHC 28.1 L (31.0-37.0) g/dL RDW 18.0 H (11.5-15.5) % Lymphocytes # (Manual) 0.57 L (1.0-4.8) k/uL ABG pH (7.35-7.45) ABG HCO3 (21-25) mmol/L ABG Total CO2 (19-24) mmol/L ABG O2 Saturation (94-97) % ABG Hematocrit (34.0-46.0) % Hemoglobin (13.0-17.5) gm/dL BUN 30 H (9-20) mg/dL Glucose 149 H (74-99) mg/dL POC Glucose (mg/dL) 170 H (70-110) mg/dL Calcium 7.7 L (8.4-10.2) mg/dL 02/15/22 02/15/22 Range/Units 11:30 12:11 RBC (4.30-5.90) m/uL Hgb (13.0-17.5) gm/dL Hct (39.0-53.0) % MCH (25.0-35.0) pg MCHC (31.0-37.0) g/dL RDW (11.5-15.5) % Lymphocytes # (Manual) (1.0-4.8) k/uL ABG pH (7.35-7.45) ABG HCO3 29 H (21-25) mmol/L ABG Total CO2 30 H (19-24) mmol/L ABG O2 Saturation 97.3 H (94-97) % ABG Hematocrit 25 L (34.0-46.0) % Hemoglobin 8.2 L (13.0-17.5) gm/dL BUN (9-20) mg/dL Glucose (74-99) mg/dL POC Glucose (mg/dL) 146 H (70-110) mg/dL Calcium (8.4-10.2) mg/dL Microbiology - Last 24 Hours (Table) 02/13/22 15:57 Gram Stain - Preliminary Sputum Sputum Culture - Preliminary Yeast species 02/13/22 07:00 Blood Culture - Preliminary Blood No Growth after 48 hours 02/12/22 19:25 Gram Stain - Preliminary Abdomen Wound Culture - Preliminary Presumptive Staph aureus 02/12/22 16:57 Blood Culture - Preliminary Blood No Growth after 48 hours Assessment and Plan (1) Abdominal wall defect, acquired Current Visit: Yes Status: Acute Code(s): M95.8 - OTH ACQUIRED DEFORMITIES OF MUSCULOSKELETAL SYSTEM SNOMED Code(s): 454030503673444 (2) Pneumonia Current Visit: Yes Status: Acute Code(s): J18.9 - PNEUMONIA, UNSPECIFIED ORGANISM SNOMED Code(s): 088515408 Plan: 1patient presented to hospital with confusion and increasing shortness of breath in this patient with evidence of ascites effusion and 3+ edema feet likely related to fluid overload underlying pneumonia less likely but not entirely excluded. 2patient with a nonhealing lower abdominal wound however there is no evidence of any surrounding redness and CT abdominal pelvis did not mention any abscess. 3abdominal cultures are growing MSSA sputum is growing Malathi. 4we will discontinue Zosyn and start the patient on Unasyn and monitor clinical course closely Time with Patient: Less than 30
[2022-02-16] MEDS: NOREPINEPHRINE 4 MG in SODIUM CHLORIDE 0.9% 250 ML IV SCH ×3 (00:18→09:27)
[2022-02-16 05:10] LABS: Glucose,Whole Blood 156 mg/dL (70-110)
[2022-02-16] MEDS: AMPICILLIN-SULBACTAM 3 GM in SODIUM CHLORIDE 0.9% 100 ML IVPB SCH ×3 (05:13→18:07)
[2022-02-16] MEDS: INSULIN ASPART (NovoLOG) 100 UNIT/ML VIAL SQ SCH ×3 (05:13→18:08)
[2022-02-16 05:19] LABS: Anisocytosis Slight; HCT 29.3 % (39.0-53.0); HGB 8.1 gm/dL (13.0-17.5); Hypochromasia Marked; MCH 22.3 pg (25.0-35.0); MCHC 27.6 g/dL (31.0-37.0); MCV 80.8 fL (80.0-100.0); Microcytosis Slight; Platelet Count 348 k/uL (150-450); Poikilocytosis Slight; RBC 3.62 m/uL (4.30-5.90); RDW 18.1 % (11.5-15.5); WBC 8.6 k/uL (3.8-10.6)
[2022-02-16 05:29] LABS: Calcium 7.8 mg/dL (8.4-10.2); Potassium 3.9 mmol/L (3.5-5.1)
[2022-02-16 05:52] LABS: ABG Base Excess 7.4 mmol/L; ABG HCO3 31 mmol/L (21-25); ABG Oxygen Saturation 99.2 % (94-97); ABG PCO2 40 mmHg (35-45); ABG PO2 100 mmHg (83-108); ABG TCO2 32 mmol/L (19-24); Allen Test Performed? Yes
[2022-02-16 05:56] LABS: ABG Hematocrit 24 % (34.0-46.0)
--- NOTE | 2022-02-16 06:55 | XR ---
EXAMINATION TYPE: XR chest 1V portable DATE OF EXAM: 02/16/2022 CLINICAL HISTORY: Difficulty breathing progress study. TECHNIQUE: Single AP portable semiupright view of the chest is obtained. COMPARISON: Chest x-ray from one day earlier and older studies. FINDINGS: Stable endotracheal and orogastric tubes. Stable right-sided subclavian central venous cat heter. Persistent cardiomegaly with small bilateral pleural effusion and increased opacities bilaterally. No pneumothorax is seen. Multilevel spurring and spine redemonstrated. IMPRESSION: Findings suggests continued CHF exacerbation as there is cardiomegaly with central opacit ies favoring edema and small bilateral pleural effusions are all redemonstrated. No significant benz e from one day earlier.
[2022-02-16] MEDS ORDERED: POTASSIUM BICARBONATE/CIT AC 20 MEQ TABLET.EFF NG-TUBE SCH (07:00)
[2022-02-16] MEDS: CHLORHEXIDINE GLUCONATE 15 ML CUP MUCOUS MEM SCH ×2 (09:27→21:10)
[2022-02-16] MEDS ORDERED: SODIUM CHLORIDE 0.9% 500 ML 500 ML IV ONE ×2 (09:27→11:36)
[2022-02-16] MEDS: PANTOPRAZOLE 40 MG/10 ML VIAL IVP SCH (09:28)
[2022-02-16] MEDS: COLLAGENASE 250 UNIT/GM OINTMENT 30 GM TUBE TOPICAL SCH (09:28)
[2022-02-16] MEDS: LACTULOSE 20 GM/30 ML CUP PO SCH ×2 (09:28→21:09)
[2022-02-16] MEDS: OXYBUTYNIN CHLORIDE 5 MG TAB PO SCH ×2 (09:28→21:09)
[2022-02-16] MEDS: HEPARIN SODIUM,PORCINE/PF 5,000 UNIT/0.5 ML SYRINGE SQ SCH ×2 (09:28→21:09)
--- NOTE | 2022-02-16 10:23 | P.PN ---
Progress Note - Text Progress Note Date: 02/16/22 Patient remains on ventilator. He's being treated for congestive heart failure and possible pneumonia. On exam his vital signs appear stable. His abdomen is soft. There is minimal distention. Wound is clean. Respiratory failure. Patient to receive supportive care. We will follow with you.
[2022-02-16 11:35] LABS: Glucose,Whole Blood 153 mg/dL (70-110)
--- NOTE | 2022-02-16 12:20 | P.PN ---
Subjective Progress Note Date: 02/16/22 Principal diagnosis: Acute hypoxic and hypercapnic respiratory failure This is a 76-year-old white male, history of colon resection about a month ago, patient had severe diverticulosis and recurrent lower GI bleeding from diverticulosis. Patient had a very complicated postoperative course, and he was eventually discharged to [facility]. Yesterday the patient was supposed to be cleared to go home however the patient developed worsening confusion, abdominal pain at the incision site, and small wound dehiscence from his previous surgical site in the abdomen. Patient was brought into the ER, and he was noted to be hypoxic and hypercapnic. Patient was initially placed on BiPAP, and I had a discussion with the ER physician after reviewing the ABG that the patient may have to be intubated however the ER physician felt that the patient was clinically better than his ABG and did not require intubation. However as soon as the patient was transferred to the ICU, he was clearly noted to be not tolerating the BiPAP, and his ABG was getting worse. Patient was intubated placed on mechanical ventilation and broad-spectrum antibiotics. No history could be obtained from the patient and there is no family members around, most of the information was obtained from the chart. Workup in the ER included a chest x-ray which showed patchy infiltrates, possible pneumonia, and some pulmonary vascular congestion. Patient was also noted to be anemic with a hemoglobin of 8.6, patient does have chronic anemia. CT of the abdomen and pelvis showed ascites and fecal impaction. Patient did receive Lasix in the ER, and his BNP level was a bit elevated. Pro-calcitonin level is pending. Patient is known to have history of severe aortic stenosis. ABG this morning showed a pO2 of 245 pCO2 of 36 pH of 7.49 and this was on 60% FiO2 and PEEP of 10. Hence his FiO2 will be decreased down to 45%. Otherwise we'll continue the same vent settings, mostly a rate of 2012 volume 500 FiO2 will be cut down, and PEEP will remain at 10 for now. ABG in the ER yesterday showed a pO2 of 127 pCO2 92 pH of 7.14 and this ABG was shortly before he was intubated. Clearly the patient had a picture of acute hypercapnic respiratory failure. Chest x-ray today after line placement showed adequate placement of the right subclavian triple-lumen catheter, his endotracheal tube was noted to be relatively high above the mima and this will be advanced. There is evidence of airspace consolidation within the lower lobes bilaterally. Small pleural effusions noted. Specially on the left side. But the ultrasound showed moderate right-sided pleural effusion and small left-sided pleural effusion. CT of the brain showed no evidence of acute process Reevaluated today on 02/14/22, remains in the ICU, intubated and mechanically ventilated. Patient is on assist control rate of 20, volume 500 FiO2 40% and I cut it down to 35% PEEP of 8 and I cut it down to 5. ABG today showed a pO2 of 184 pCO2 39 pH of 7.48. Patient is requiring norepinephrine at 0.09 mcg/kg/m is on IV fluid 0.9 normal saline at 75 mL per hour and he is on propofol at 40 mcg/kg/m. Receiving vital HPI 30 mL per hour. Patient remains on Zosyn, considering his CVP is only 7 and urine output is marginal I will go ahead and recommended a liter bolus of 0.9 normal saline. We will cut down the propofol and hopefully cut down on the norepinephrine if his blood pressure improves. May improve with fluid bolus and with cutting down the dose of propofol WBC count is 8.5 hemoglobin 7.6 hematocrit is 27.6 basic metabolic profile is normal bicarb is normal BUN is 41 creatinine 1.2, improving since yesterday creatinine was 1.51 a chest x-ray showed pleural parenchymal changes, air bronchogram noted in the left retrocardiac area, highly suspicious for pneumonia. Reevaluated today on 02/15/22, patient remains on the ventilator, his on assist control rate of 20 to light and 500 FiO2 35% PEEP of 5 ABG showed a pO2 of 100 pCO2 38 pH of 7.49. Patient remains on antibiotics in the form of Zosyn he is also on diuretics, the diuretics was increased since the patient continues to have findings suggestive of mild fluid overload and he also has findings suggestive of pneumonia. Chest x-ray is showing cardiomegaly with pulmonary vascular congestion and bilateral pleural effusion and bibasilar airspace disease WBC count is 8.1 hemoglobin is 7.7, basic metabolic profile is normal renal profile is normal, creatinine has been steadily improving since admission, it is 1.01 today. Sputum cultures are negative except for some yeast species and his wound culture is showing presumptive staph aureus, final sensitivities pending. In the meantime the patient is on Zosyn. He did receive vancomycin initially. Reevaluated today on 02/16/22, patient remains in the ICU, intubated and mechanically ventilated. He is on assist control rate of 20- tidal volume of 500 FiO2 35% PEEP of 5. ABG showed a pO2 of 100 pCO2 40 pH of 7.50 patient remains sedated, he is requiring more and norepinephrine overnight, he is on propofol at 35 mcg/kg/m, norepinephrine at 0.12 mcg/kg/m patient has not had a bowel movement since admission, lactulose. Today on plan to give the patient fluid boluses 500 mL at a time, and I plan to hold his Lasix. Hoping that fluid boluses will improve his blood pressure and hopefully down on the dose of norepinephrine. Patient remains on vital HPI 38 mL per hour. His antibiotics were transitioned to Unasyn since the patient has mostly staph aureus, MSSA in the wound culture. Yesterday the patient weaned but could not be extubated mostly because of worsening tachycardia and worsening endotracheal secretions. Hence I had to place him back on assist control mode of mechanical ventilation and did not go further to extubate. Labs today demonstrate is 8.6 and global was 8.1 lites are normal, renal profile is normal. Sputum cultures are negative blood cultures are - abdominal wound cultures are positive for MSSA. Objective - Vital Signs Vital signs: Vital Signs Temp 98.5 F 02/16/22 12:00 Pulse 80 02/16/22 12:06 Resp 20 02/16/22 12:06 BP 103/60 02/16/22 01:00 Pulse Ox 96 02/16/22 12:00 FiO2 35 02/16/22 12:00 Intake & Output 02/15/22 02/16/22 02/16/22 18:59 06:59 18:59 Intake Total 2250.453 0451.680 1905.221 Output Total 2055 1735 290 Balance -145.281 -32.320 1615.221 Weight 100 kg Intake: IV 0592 584 9412 Ampicillin-Sulbactam 3 gm 200 100 In Sodium Chloride 0.9% 100 ml @ 200 mls/hr IVPB Q6HR [facility] Rx#:[id number] Piperacillin-Tazobactam 3 200 .375 gm In Sodium Chloride 0.9% 100 ml @ 25 mls/hr IVPB Q8HR [facility] Rx# :[id number] Sodium Chloride 0.9% 1, 975 220 120 000 ml @ 75 mls/hr IV . [id number] [facility] Rx#:[id number] Sodium Chloride 0.9% 500 1000 ml 500 ml @ 999 mls/hr IV .Q31M [facility] Rx#:[id number] pressure bag 78 66 36 Intake, IV Titration 330.719 708.680 285.221 Amount Norepinephrine 4 mg In 179.826 413.108 269.599 Sodium Chloride 0.9% 250 ml @ 0.05 MCG/KG/MIN 20. 738 mls/hr IV .[id number] [facility] Rx#:[id number] propofoL 1,000 mg In 150.893 295.572 15.622 Empty Bag 1 bag @ 5 MCG/ KG/MIN 3.266 mls/hr IV . Q24H [facility] Rx#:[id number] Tube Feeding 266 418 304 Other 60 90 60 Output: Urine 2055 1735 290 Other: Voiding Method Indwelling Catheter Indwelling Catheter Indwelling Catheter # Bowel Movements 0 ABP, PAP, CO, CI - Last Documented Arterial Blood Pressure 101/45 - Exam Physical Exam: Revealed a 76-year-old white male in no distress. Intubated and mechanically ventilated. Head: Atraumatic, normocephalic. Endotracheal tube and orogastric tube are intact. HEENT:[Neck is supple.] [No neck masses.] [No thyromegaly.] [No JVD.] PERRLA, EOMI, nonicteric, chronic masses, no JVD. Chest: Symmetrical chest expansion, final crackles at the bases. Cardiac Exam: [Normal S1 and S2, no S3 gallop, 3/6 systolic murmur thought the precordium mostly over the aortic area. Abdomen: Obese,wound dehiscence with 2 areas, lower area has pustular discharge Extremities: [No clubbing, no edema, no cyanosis.] Neurological Exam: Cannot fully assess, patient is intubated, sedated, on propofol. Psychiatric: Could not assess. Skin: Evidence of wound dehiscence and purulent drainage from abdominal incision. - Labs CBC & Chem 7: 02/16/22 05:00 02/16/22 05:00 Labs: Abnormal Lab Results - Last 24 Hours (Table) 02/15/22 02/15/22 02/15/22 Range/Units 12:11 17:24 23:14 RBC (4.30-5.90) m/uL Hgb (13.0-17.5) gm/dL Hct (39.0-53.0) % MCH (25.0-35.0) pg MCHC (31.0-37.0) g/dL RDW (11.5-15.5) % ABG pH (7.35-7.45) ABG HCO3 29 H (21-25) mmol/L ABG Total CO2 30 H (19-24) mmol/L ABG O2 Saturation 97.3 H (94-97) % ABG Hematocrit 25 L (34.0-46.0) % Hemoglobin 8.2 L (13.0-17.5) gm/dL BUN (9-20) mg/dL Glucose (74-99) mg/dL POC Glucose (mg/dL) 152 H 178 H (70-110) mg/dL Calcium (8.4-10.2) mg/dL 02/16/22 02/16/22 02/16/22 Range/Units 05:00 05:00 05:08 RBC 3.62 L (4.30-5.90) m/uL Hgb 8.1 L (13.0-17.5) gm/dL Hct 29.3 L (39.0-53.0) % MCH 22.3 L (25.0-35.0) pg MCHC 27.6 L (31.0-37.0) g/dL RDW 18.1 H (11.5-15.5) % ABG pH (7.35-7.45) ABG HCO3 (21-25) mmol/L ABG Total CO2 (19-24) mmol/L ABG O2 Saturation (94-97) % ABG Hematocrit (34.0-46.0) % Hemoglobin (13.0-17.5) gm/dL BUN 22 H (9-20) mg/dL Glucose 149 H (74-99) mg/dL POC Glucose (mg/dL) 156 H (70-110) mg/dL Calcium 7.8 L (8.4-10.2) mg/dL 02/16/22 02/16/22 Range/Units 05:47 11:33 RBC (4.30-5.90) m/uL Hgb (13.0-17.5) gm/dL Hct (39.0-53.0) % MCH (25.0-35.0) pg MCHC (31.0-37.0) g/dL RDW (11.5-15.5) % ABG pH 7.50 H (7.35-7.45) ABG HCO3 31 H (21-25) mmol/L ABG Total CO2 32 H (19-24) mmol/L ABG O2 Saturation 99.2 H (94-97) % ABG Hematocrit 24 L (34.0-46.0) % Hemoglobin 7.9 L (13.0-17.5) gm/dL BUN (9-20) mg/dL Glucose (74-99) mg/dL POC Glucose (mg/dL) 153 H (70-110) mg/dL Calcium (8.4-10.2) mg/dL Microbiology - Last 24 Hours (Table) 02/13/22 07:00 Blood Culture - Preliminary Blood No Growth after 72 hours 02/12/22 19:25 Gram Stain - Final Abdomen Wound Culture - Final Staphylococcus aureus 02/12/22 16:57 Blood Culture - Preliminary Blood No Growth after 72 hours 02/13/22 15:57 Gram Stain - Preliminary Sputum Sputum Culture - Preliminary Yeast species Assessment and Plan Assessment: Impression: Acute hypoxic and hypercapnic respiratory failure Sepsis and septic shock strongly suspected. Healthcare acquired pneumonia Surgical site/wound infection/this is secondary to MSSA, abdomen wound dehiscence. Acute kidney injury, resolved Severe aortic stenosis, documented on previous admissions. 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 Recommendation: Continue ventilatory support, patient failed weaning yesterday mostly because of worsening tachycardia and significant endotracheal tube secretions. Patient is back on norepinephrine for low blood pressure, will try fluid boluses today and tapered down his norepinephrine and possibly discontinue if possible. Broad-spectrum antibiotics with infectious disease , Zosyn was changed to Unasyn mostly because of MSSA abdominal wound infection Continue Unasyn Cultures from sputum are nondiagnostic so far GI and DVT prophylaxis. Daily trials of weaning will be considered however today my main concern is to get his blood pressure more stable, patient is requiring relatively high dose of norepinephrine. Prognosis remains guarded. We will continue to follow. Critical care time is over 30 minutes Time with Patient: Greater than 30
--- NOTE | 2022-02-16 13:23 | P.PN ---
Subjective Progress Note Date: 02/16/22 Pt is stable, did okay with sedation holiday yesterday, no sedation holiday today. Rec'd lasix for volume overload yesterday, but CVP dropped to 4 and so was bolused today. CVP at 8. Levo at 0.09. Sputum Cx gram stain is + for yeast, Wound Cx + for GPCs. Gen: Intubated, sedated HEENT: normocephalic, atraumatic, good hearing acuity, moist mucous membranes Resp: Ventilator dependent CVS: good distal perfusion x 4, GI: soft, wound dehiscence with 2 areas : no SPT, no CVAT, victoria catheter is present MSK: no pitting edema, no clubbing Neuro: non-focal Assessment/plan: 76 year old male with DM , severe aortic stenosis , recent surgical repair of bleeding acute diverticulitis about a month ago. brought in today for altered mental status , found to have acute hypercapnic respiratory failure , possible pneumonia , bilateral lower extremity edema Acute Hypoxemic and Hypercarbic Respiratory Failure Septic Shock with Toxic/Metabolic Encephalopathy Community Acquired Pneumonia Surgical Site Infection s/p Bowel Resection Acute Kidney Injury - Admit to ICU, telemetry - ICU, ID consultation appreciated - Wound Care consult - Surgery consult - Vancomycin, Zosyn - f/u BCx - NGTD, Wound Cx - staph aureus - IVF - Levophed - Propofol - Monitor I/Os, UOP - Daily labs Severe Aortic Stenosis Chronic Diastolic Heart Failure - strict I/Os, daily weights - cardiology consult - f/u Echo DM - Insulin sliding scale Q6hr guarded prognosis ICU care full code DVT PPX heparin sc tid Objective - Vital Signs Vital signs: Vital Signs Temp 98.5 F 02/16/22 12:00 Pulse 91 02/16/22 12:18 Resp 20 02/16/22 12:18 BP 103/60 02/16/22 01:00 Pulse Ox 96 02/16/22 12:00 FiO2 35 02/16/22 12:00 Intake & Output 02/15/22 02/16/22 02/16/22 18:59 06:59 18:59 Intake Total 5151.604 1662.680 1905.221 Output Total 2485 1735 290 Balance -145.281 -32.320 1615.221 Weight 100 kg Intake: IV 5427 395 3939 Ampicillin-Sulbactam 3 gm 200 100 In Sodium Chloride 0.9% 100 ml @ 200 mls/hr IVPB Q6HR [facility] Rx#:[id number] Piperacillin-Tazobactam 3 200 .375 gm In Sodium Chloride 0.9% 100 ml @ 25 mls/hr IVPB Q8HR [facility] Rx# :[id number] Sodium Chloride 0.9% 1, 975 220 120 000 ml @ 75 mls/hr IV . [id number] [facility] Rx#:[id number] Sodium Chloride 0.9% 500 1000 ml 500 ml @ 999 mls/hr IV .Q31M [facility] Rx#:[id number] pressure bag 78 66 36 Intake, IV Titration 330.719 708.680 285.221 Amount Norepinephrine 4 mg In 179.826 413.108 269.599 Sodium Chloride 0.9% 250 ml @ 0.05 MCG/KG/MIN 20. 738 mls/hr IV .[id number] [facility] Rx#:[id number] propofoL 1,000 mg In 150.893 295.572 15.622 Empty Bag 1 bag @ 5 MCG/ KG/MIN 3.266 mls/hr IV . Q24H [facility] Rx#:[id number] Tube Feeding 266 418 304 Other 60 90 60 Output: Urine 2055 1735 290 Other: Voiding Method Indwelling Catheter Indwelling Catheter Indwelling Catheter # Bowel Movements 0 ABP, PAP, CO, CI - Last Documented Arterial Blood Pressure 101/45 - Labs CBC & Chem 7: 02/16/22 05:00 02/16/22 05:00 Labs: Abnormal Lab Results - Last 24 Hours (Table) 02/15/22 02/15/22 02/16/22 Range/Units 17:24 23:14 05:00 RBC 3.62 L (4.30-5.90) m/uL Hgb 8.1 L (13.0-17.5) gm/dL Hct 29.3 L (39.0-53.0) % MCH 22.3 L (25.0-35.0) pg MCHC 27.6 L (31.0-37.0) g/dL RDW 18.1 H (11.5-15.5) % ABG pH (7.35-7.45) ABG HCO3 (21-25) mmol/L ABG Total CO2 (19-24) mmol/L ABG O2 Saturation (94-97) % ABG Hematocrit (34.0-46.0) % Hemoglobin (13.0-17.5) gm/dL BUN (9-20) mg/dL Glucose (74-99) mg/dL POC Glucose (mg/dL) 152 H 178 H (70-110) mg/dL Calcium (8.4-10.2) mg/dL 02/16/22 02/16/22 02/16/22 Range/Units 05:00 05:08 05:47 RBC (4.30-5.90) m/uL Hgb (13.0-17.5) gm/dL Hct (39.0-53.0) % MCH (25.0-35.0) pg MCHC (31.0-37.0) g/dL RDW (11.5-15.5) % ABG pH 7.50 H (7.35-7.45) ABG HCO3 31 H (21-25) mmol/L ABG Total CO2 32 H (19-24) mmol/L ABG O2 Saturation 99.2 H (94-97) % ABG Hematocrit 24 L (34.0-46.0) % Hemoglobin 7.9 L (13.0-17.5) gm/dL BUN 22 H (9-20) mg/dL Glucose 149 H (74-99) mg/dL POC Glucose (mg/dL) 156 H (70-110) mg/dL Calcium 7.8 L (8.4-10.2) mg/dL 02/16/22 Range/Units 11:33 RBC (4.30-5.90) m/uL Hgb (13.0-17.5) gm/dL Hct (39.0-53.0) % MCH (25.0-35.0) pg MCHC (31.0-37.0) g/dL RDW (11.5-15.5) % ABG pH (7.35-7.45) ABG HCO3 (21-25) mmol/L ABG Total CO2 (19-24) mmol/L ABG O2 Saturation (94-97) % ABG Hematocrit (34.0-46.0) % Hemoglobin (13.0-17.5) gm/dL BUN (9-20) mg/dL Glucose (74-99) mg/dL POC Glucose (mg/dL) 153 H (70-110) mg/dL Calcium (8.4-10.2) mg/dL Microbiology - Last 24 Hours (Table) 02/13/22 07:00 Blood Culture - Preliminary Blood No Growth after 72 hours 02/12/22 19:25 Gram Stain - Final Abdomen Wound Culture - Final Staphylococcus aureus 02/12/22 16:57 Blood Culture - Preliminary Blood No Growth after 72 hours 02/13/22 15:57 Gram Stain - Preliminary Sputum Sputum Culture - Preliminary Yeast species
--- NOTE | 2022-02-16 14:35 | P.PN ---
Subjective HISTORY OF PRESENTING ILLNESS Patient has a known history of hypertension, hyperlipidemia, aortic stenosis, chronic kidney disease, anemia congestive heart failure, diabetes and recent history of bowel resection for bleeding diverticulitis. Patient is not on anticoagulation due to history of GI bleed Patient follows in the office with Dr. Nash. Patient initially presented to the ER for mild confusion and worsening abdominal pain. Upon initial assessment patient was found to have worsening shortness of breath, lower extremity edema. We have been consulted to see the patient for congestive heart failure and elevated troponins. Patient remains in the ICU intubated and sedated. He continues on Levophed for hypotension. Patient had a short run of atrial tachycardia last night. He been sinus rhythm with a controlled ventricle rate. She has been diuresing well. Will continue with IV Lasix 02/15 Patient seen and examined. Patient underwent trial of sedation weaning however failed with increased heart rate. He has had intermittent episodes of tachycardia however currently sinus rhythm with normal heart rates. He has needed low dose norepinephrine currently at 0.07. He is receiving IV Lasix 40 mg twice a day. Chest x-ray performed this morning shows concern of increased pulmonary vascular congestion. Currently on FiO2 35% with a PEEP of 5. Hemoglobin stable at 7.7 and creatinine 1.0. 02/16 Patient seen and examined. Patient received Lasix yesterday however CVP had decreased and patient was given IV fluids. Norepinephrine has been decreased to 0.01. Remains sedated and intubated on ventilator. Hemoglobin 8.1, creatinine 0.98. PHYSICAL EXAMINATION Vital signs reviewed. CONSTITUTIONAL: No apparent distress, intubated and sedated HEENT: Head is normocephalic. Pupils are equal, round. Sclerae anicteric. Mucous membranes of the mouth are moist. No JVD. No carotid bruit. CHEST EXAMINATION: Decreased breath sounds at bases HEART EXAMINATION: Regular rate and rhythm. S1, S2 heard. No murmurs, gallops or rub. ABDOMEN: Soft, nontender. Positive bowel sounds. EXTREMITIES: 2+ peripheral pulses, no lower extremity edema and no calf tenderness. NEUROLOGIC EXAMINATION: Patient is sedated on vent ASSESSMENT 1. Acute on chronic diastolic heart failure 2. Non-STEMI related to hypoxia, sepsis 3. Severe aortic stenosis 4. Anemia, history of bleeding diverticulosis 5. Prior history of polycythemia 6. Episodes of atrial tachycardia 7. Hypertension currently hypotensive 8. Septic shock concern of pneumonia as source 9. Acute on chronic respiratory failure 10. Acute kidney injury likely related to ATN improving PLAN Patient appears is slowly be recovering from his sepsis. Still requiring low dose of norepinephrine. Hypotensive with a lower CVP and therefore was given fluid back. Continue to monitor urine output and ins and outs. Hopeful extubation tomorrow. Objective - Vital Signs Vital signs: Vital Signs Temp 98.5 F 02/16/22 12:00 Pulse 85 02/16/22 14:00 Resp 20 02/16/22 14:00 BP 103/60 02/16/22 01:00 Pulse Ox 98 02/16/22 14:00 FiO2 35 02/16/22 12:00 Intake & Output 02/15/22 02/16/22 02/16/22 18:59 06:59 18:59 Intake Total 2833.652 6809.680 2033.221 Output Total 2055 1735 355 Balance -145.281 -32.320 1678.221 Weight 100 kg Intake: IV 2611 903 2304 Ampicillin-Sulbactam 3 gm 200 100 In Sodium Chloride 0.9% 100 ml @ 200 mls/hr IVPB Q6HR [facility] Rx#:[id number] Piperacillin-Tazobactam 3 200 .375 gm In Sodium Chloride 0.9% 100 ml @ 25 mls/hr IVPB Q8HR [facility] Rx# :[id number] Sodium Chloride 0.9% 1, 975 220 160 000 ml @ 75 mls/hr IV . [id number] [facility] Rx#:[id number] Sodium Chloride 0.9% 500 1000 ml 500 ml @ 999 mls/hr IV .Q31M [facility] Rx#:[id number] pressure bag 78 66 48 Intake, IV Titration 330.719 708.680 285.221 Amount Norepinephrine 4 mg In 179.826 413.108 269.599 Sodium Chloride 0.9% 250 ml @ 0.05 MCG/KG/MIN 20. 738 mls/hr IV .[id number] [facility] Rx#:[id number] propofoL 1,000 mg In 150.893 295.572 15.622 Empty Bag 1 bag @ 5 MCG/ KG/MIN 3.266 mls/hr IV . Q24H [facility] Rx#:[id number] Tube Feeding 266 418 380 Other 60 90 60 Output: Urine 2055 1735 355 Other: Voiding Method Indwelling Catheter Indwelling Catheter Indwelling Catheter # Bowel Movements 0 ABP, PAP, CO, CI - Last Documented Arterial Blood Pressure 100/45 - Labs CBC & Chem 7: 02/16/22 05:00 02/16/22 05:00 Labs: Abnormal Lab Results - Last 24 Hours (Table) 02/15/22 02/15/22 02/16/22 Range/Units 17:24 23:14 05:00 RBC 3.62 L (4.30-5.90) m/uL Hgb 8.1 L (13.0-17.5) gm/dL Hct 29.3 L (39.0-53.0) % MCH 22.3 L (25.0-35.0) pg MCHC 27.6 L (31.0-37.0) g/dL RDW 18.1 H (11.5-15.5) % ABG pH (7.35-7.45) ABG HCO3 (21-25) mmol/L ABG Total CO2 (19-24) mmol/L ABG O2 Saturation (94-97) % ABG Hematocrit (34.0-46.0) % Hemoglobin (13.0-17.5) gm/dL BUN (9-20) mg/dL Glucose (74-99) mg/dL POC Glucose (mg/dL) 152 H 178 H (70-110) mg/dL Calcium (8.4-10.2) mg/dL 02/16/22 02/16/22 02/16/22 Range/Units 05:00 05:08 05:47 RBC (4.30-5.90) m/uL Hgb (13.0-17.5) gm/dL Hct (39.0-53.0) % MCH (25.0-35.0) pg MCHC (31.0-37.0) g/dL RDW (11.5-15.5) % ABG pH 7.50 H (7.35-7.45) ABG HCO3 31 H (21-25) mmol/L ABG Total CO2 32 H (19-24) mmol/L ABG O2 Saturation 99.2 H (94-97) % ABG Hematocrit 24 L (34.0-46.0) % Hemoglobin 7.9 L (13.0-17.5) gm/dL BUN 22 H (9-20) mg/dL Glucose 149 H (74-99) mg/dL POC Glucose (mg/dL) 156 H (70-110) mg/dL Calcium 7.8 L (8.4-10.2) mg/dL 02/16/22 Range/Units 11:33 RBC (4.30-5.90) m/uL Hgb (13.0-17.5) gm/dL Hct (39.0-53.0) % MCH (25.0-35.0) pg MCHC (31.0-37.0) g/dL RDW (11.5-15.5) % ABG pH (7.35-7.45) ABG HCO3 (21-25) mmol/L ABG Total CO2 (19-24) mmol/L ABG O2 Saturation (94-97) % ABG Hematocrit (34.0-46.0) % Hemoglobin (13.0-17.5) gm/dL BUN (9-20) mg/dL Glucose (74-99) mg/dL POC Glucose (mg/dL) 153 H (70-110) mg/dL Calcium (8.4-10.2) mg/dL Microbiology - Last 24 Hours (Table) 02/13/22 07:00 Blood Culture - Preliminary Blood No Growth after 72 hours 02/12/22 19:25 Gram Stain - Final Abdomen Wound Culture - Final Staphylococcus aureus 02/12/22 16:57 Blood Culture - Preliminary Blood No Growth after 72 hours
[2022-02-16 17:12] LABS: Glucose,Whole Blood 161 mg/dL (70-110)
[2022-02-16] MEDS: ASPIRIN 81 MG PO SCH (21:09)
--- NOTE | 2022-02-16 23:29 | P.PN ---
Subjective Progress Note Date: 02/16/22 Principal diagnosis: Possible sepsis Patient is a 76-year-old male with a past medical history again for diverticulitis recurrent GI bleed in this patient who is status post laparotomy and no anterior resection on 01/15/2022 subsequently the patient was at the halfway from it the patient was brought for evaluation of confusion and increasing shortness of breath patient did not get intubated. On today's evaluation that is 02/16/2022, the patient continues to be afebrile, patient is intubated on the vent, FiO2 is stable at 35%, no significant purulent secretion through the ET or diarrhea reported by the nursing staff, Objective - Vital Signs Vital signs: Vital Signs Temp 98.5 F 02/16/22 12:00 Pulse 91 02/16/22 12:18 Resp 20 02/16/22 12:18 BP 103/60 02/16/22 01:00 Pulse Ox 96 02/16/22 12:00 FiO2 35 02/16/22 12:00 Intake & Output 02/15/22 02/16/22 02/16/22 18:59 06:59 18:59 Intake Total 6885.634 7890.680 1905.221 Output Total 2055 1735 290 Balance -145.281 -32.320 1615.221 Weight 100 kg Intake: IV 7649 720 3252 Ampicillin-Sulbactam 3 gm 200 100 In Sodium Chloride 0.9% 100 ml @ 200 mls/hr IVPB Q6HR [facility] Rx#:[id number] Piperacillin-Tazobactam 3 200 .375 gm In Sodium Chloride 0.9% 100 ml @ 25 mls/hr IVPB Q8HR [facility] Rx# :[id number] Sodium Chloride 0.9% 1, 975 220 120 000 ml @ 75 mls/hr IV . [id number] [facility] Rx#:[id number] Sodium Chloride 0.9% 500 1000 ml 500 ml @ 999 mls/hr IV .Q31M [facility] Rx#:[id number] pressure bag 78 66 36 Intake, IV Titration 330.719 708.680 285.221 Amount Norepinephrine 4 mg In 179.826 413.108 269.599 Sodium Chloride 0.9% 250 ml @ 0.05 MCG/KG/MIN 20. 738 mls/hr IV .[id number] [facility] Rx#:[id number] propofoL 1,000 mg In 150.893 295.572 15.622 Empty Bag 1 bag @ 5 MCG/ KG/MIN 3.266 mls/hr IV . Q24H [facility] Rx#:[id number] Tube Feeding 266 418 304 Other 60 90 60 Output: Urine 7035 1735 290 Other: Voiding Method Indwelling Catheter Indwelling Catheter Indwelling Catheter # Bowel Movements 0 ABP, PAP, CO, CI - Last Documented Arterial Blood Pressure 101/45 - Exam GENERAL DESCRIPTION: An elderly male intubated on the vent RESPIRATORY SYSTEM: Unlabored breathing , decreased breath sounds at bases HEART: S1 S2 regular rate and rhythm , ABDOMEN: Soft , no tenderness EXTREMITIES: One plus edema feet - Labs CBC & Chem 7: 02/16/22 05:00 02/16/22 05:00 Labs: Abnormal Lab Results - Last 24 Hours (Table) 02/15/22 02/15/22 02/16/22 Range/Units 17:24 23:14 05:00 RBC 3.62 L (4.30-5.90) m/uL Hgb 8.1 L (13.0-17.5) gm/dL Hct 29.3 L (39.0-53.0) % MCH 22.3 L (25.0-35.0) pg MCHC 27.6 L (31.0-37.0) g/dL RDW 18.1 H (11.5-15.5) % ABG pH (7.35-7.45) ABG HCO3 (21-25) mmol/L ABG Total CO2 (19-24) mmol/L ABG O2 Saturation (94-97) % ABG Hematocrit (34.0-46.0) % Hemoglobin (13.0-17.5) gm/dL BUN (9-20) mg/dL Glucose (74-99) mg/dL POC Glucose (mg/dL) 152 H 178 H (70-110) mg/dL Calcium (8.4-10.2) mg/dL 02/16/22 02/16/22 02/16/22 Range/Units 05:00 05:08 05:47 RBC (4.30-5.90) m/uL Hgb (13.0-17.5) gm/dL Hct (39.0-53.0) % MCH (25.0-35.0) pg MCHC (31.0-37.0) g/dL RDW (11.5-15.5) % ABG pH 7.50 H (7.35-7.45) ABG HCO3 31 H (21-25) mmol/L ABG Total CO2 32 H (19-24) mmol/L ABG O2 Saturation 99.2 H (94-97) % ABG Hematocrit 24 L (34.0-46.0) % Hemoglobin 7.9 L (13.0-17.5) gm/dL BUN 22 H (9-20) mg/dL Glucose 149 H (74-99) mg/dL POC Glucose (mg/dL) 156 H (70-110) mg/dL Calcium 7.8 L (8.4-10.2) mg/dL 02/16/22 Range/Units 11:33 RBC (4.30-5.90) m/uL Hgb (13.0-17.5) gm/dL Hct (39.0-53.0) % MCH (25.0-35.0) pg MCHC (31.0-37.0) g/dL RDW (11.5-15.5) % ABG pH (7.35-7.45) ABG HCO3 (21-25) mmol/L ABG Total CO2 (19-24) mmol/L ABG O2 Saturation (94-97) % ABG Hematocrit (34.0-46.0) % Hemoglobin (13.0-17.5) gm/dL BUN (9-20) mg/dL Glucose (74-99) mg/dL POC Glucose (mg/dL) 153 H (70-110) mg/dL Calcium (8.4-10.2) mg/dL Microbiology - Last 24 Hours (Table) 02/13/22 07:00 Blood Culture - Preliminary Blood No Growth after 72 hours 02/12/22 19:25 Gram Stain - Final Abdomen Wound Culture - Final Staphylococcus aureus 02/12/22 16:57 Blood Culture - Preliminary Blood No Growth after 72 hours Assessment and Plan (1) Abdominal wall defect, acquired Current Visit: Yes Status: Acute Code(s): M95.8 - OTH ACQUIRED DEFORMITIES OF MUSCULOSKELETAL SYSTEM SNOMED Code(s): 192016706359523 (2) Pneumonia Current Visit: Yes Status: Acute Code(s): J18.9 - PNEUMONIA, UNSPECIFIED ORGANISM SNOMED Code(s): 000116723 Plan: 1patient presented to hospital with confusion and increasing shortness of breath in this patient with evidence of ascites effusion and 3+ edema feet likely related to fluid overload underlying pneumonia less likely but not entirely excluded. 2patient with a nonhealing lower abdominal wound however there is no evidence of any surrounding redness and CT abdominal pelvis did not mention any abscess. 3abdominal cultures are growing MSSA and anaerobes, the patient sputum is growing Malathi. 4patient to continue with Unasyn and monitor clinical course closely Time with Patient: Less than 30
[2022-02-16 23:44] LABS: Glucose,Whole Blood 147 mg/dL (70-110)
[2022-02-17] MEDS: NOREPINEPHRINE 32 MG in SODIUM CHLORIDE 0.9% 218 ML IV SCH ×2 (00:03→23:31)
[2022-02-17] MEDS: INSULIN ASPART (NovoLOG) 100 UNIT/ML VIAL SQ SCH ×5 (00:04→23:47)
[2022-02-17] MEDS: ACETAMINOPHEN TAB 325 MG TAB PO PRN ×2 (00:08→23:54)
[2022-02-17] MEDS: AMPICILLIN-SULBACTAM 3 GM in SODIUM CHLORIDE 0.9% 100 ML IVPB SCH ×5 (00:09→23:47)
[2022-02-17] MEDS: IPRATROPIUM-ALBUTEROL 3 ML NEB INHALATION SCH ×6 (03:00→23:11)
[2022-02-17 05:17] LABS: Glucose,Whole Blood 165 mg/dL (70-110)
[2022-02-17 05:24] LABS: ABG Base Excess 5.7 mmol/L; ABG HCO3 29 mmol/L (21-25); ABG Oxygen Saturation 97.2 % (94-97); ABG PCO2 40 mmHg (35-45); ABG PH 7.47 (7.35-7.45); ABG PO2 78 mmHg (83-108); ABG TCO2 31 mmol/L (19-24)
[2022-02-17 05:26] LABS: Anisocytosis Slight; HCT 27.6 % (39.0-53.0); HGB 7.7 gm/dL (13.0-17.5); Hypochromasia Marked; MCH 22.8 pg (25.0-35.0); MCHC 27.9 g/dL (31.0-37.0); MCV 81.8 fL (80.0-100.0); Mean Platelet Volume 7.5; Microcytosis Slight; Platelet Count 282 k/uL (150-450); Poikilocytosis Moderate; RBC 3.37 m/uL (4.30-5.90); RDW 18.3 % (11.5-15.5); WBC 7.8 k/uL (3.8-10.6)
[2022-02-17 05:26] LABS: ABG Hematocrit 23 % (34.0-46.0); Allen Test Performed? no
[2022-02-17 05:40] LABS: ALT 8 U/L (4-49); AST 25 U/L (17-59); African American GFR (CKD) >90 (>60 ml/min/1.73 sqM); Albumin 2.5 g/dL (3.5-5.0); Alkaline Phosphatase 72 U/L (38-126); Anion Gap 9 mmol/L; Blood Urea Nitrogen 20 mg/dL (9-20); Calcium 7.6 mg/dL (8.4-10.2); Carbon Dioxide 26 mmol/L (22-30); Chloride 104 mmol/L (98-107); Glucose 148 mg/dL (74-99); Magnesium 1.8 mg/dL (1.6-2.3); Non-African American GFR(CKD) 85 (>60 ml/min/1.73 sqM); Potassium 3.8 mmol/L (3.5-5.1); Sodium 139 mmol/L (137-145); Total Bilirubin 0.7 mg/dL (0.2-1.3); Total Protein 4.9 g/dL (6.3-8.2)
[2022-02-17] MEDS: MAGNESIUM SULFATE-D5W PMX 1 GM in DEXTROSE/WATER 1 100ML.BAG IVPB SCH ×2 (06:18→08:28)
[2022-02-17] MEDS ORDERED: POTASSIUM BICARBONATE/CIT AC 20 MEQ TABLET.EFF NG-TUBE SCH (07:00)
--- NOTE | 2022-02-17 07:34 | XR ---
EXAMINATION TYPE: XR chest 1V portable DATE OF EXAM: 02/17/2022 5:51 AM COMPARISON: Chest radiographs from 02/16/2022. TECHNIQUE: XR chest 1V portable Frontal view of the chest. CLINICAL INDICATION:Male, 76 years old with history of Tube placement; FINDINGS: Patient is rotated which limits evaluation. Lungs/Pleura: Small moderate bilateral pleural effusions with bibasilar airspace opacities. No pneumo thorax. Pulmonary vascularity: Pulmonary vascular congestion. Heart/mediastinum: Cardiomediastinal silhouette is enlarged and stable. Atherosclerotic calcificatio ns are seen in the aorta. Musculoskeletal: No acute osseous pathology. Lines/Tubes: Stable endotracheal tube, nasogastric tube, and right subclavian central venous catheter. IMPRESSION: 1. Overall unchanged examination with continued CHF exacerbation with cardiomegaly, pulmonary vascul ar congestion, and small to moderate bilateral pleural effusions. 2. Stable support lines and tubes.
--- NOTE | 2022-02-17 07:52 | P.PN ---
Subjective Progress Note Date: 02/17/22 Principal diagnosis: Heart failure with preserved ejection fraction/severe aortic stenosis This is a 76-year-old gentleman with aortic stenosis and chronic kidney disease as well as hypertension and dyslipidemia as well as multiple comorbid conditions was admitted to the hospital with acute on chronic diastolic heart failure and he developed respiratory failure requiring intubation and mechanical ventilation. The patient was seen this morning. He continues to be intubated on mechanical ventilation VT continues to be in stable and recur norepinephrine. Lasix currently on hold because his CVP was low yesterday but CVP this morning is 14. The echo showed evidence off mildly impaired LV function was evidence of severe aortic stenosis and mean gradient all 40 mmHg. At this point I would continue the current medical regimen and continue monitor the urine output and hoping to extubate the patient. Objective - Vital Signs Vital signs: Vital Signs Temp 99.4 F 02/17/22 04:00 Pulse 96 02/17/22 07:00 Resp 20 02/17/22 07:00 BP 103/60 02/17/22 07:00 Pulse Ox 97 02/17/22 07:00 FiO2 35 02/17/22 07:30 Intake & Output 02/16/22 02/17/22 02/17/22 18:59 06:59 18:59 Intake Total 2613.888 1325.885 Output Total 535 505 Balance 2078.888 820.885 Weight 101 kg Intake: IV 1528 412 0.9 KVO 90 240 Ampicillin-Sulbactam 3 gm 200 100 In Sodium Chloride 0.9% 100 ml @ 200 mls/hr IVPB Q6HR [facility] Rx#:[id number] Sodium Chloride 0.9% 1, 160 000 ml @ 75 mls/hr IV . [id number] [facility] Rx#:[id number] Sodium Chloride 0.9% 500 1000 ml 500 ml @ 999 mls/hr IV .Q31M [facility] Rx#:[id number] pressure bag 78 72 Intake, IV Titration 387.888 419.885 Amount Norepinephrine 32 mg In 20.813 Sodium Chloride 0.9% 218 ml @ 0.05 MCG/KG/MIN 2. 344 mls/hr IV .Q24H [facility] Rx#:[id number] Norepinephrine 4 mg In 269.599 201.739 Sodium Chloride 0.9% 250 ml @ 0.05 MCG/KG/MIN 20. 738 mls/hr IV .[id number] [facility] Rx#:[id number] propofoL 1,000 mg In 118.289 197.333 Empty Bag 1 bag @ 5 MCG/ KG/MIN 3.266 mls/hr IV . Q24H [facility] Rx#:[id number] Tube Feeding 608 494 Other 90 Output: Urine 535 505 Other: Voiding Method Indwelling Catheter Indwelling Catheter ABP, PAP, CO, CI - Last Documented Arterial Blood Pressure 109/54 - Constitutional General appearance: Present: no acute distress - Respiratory Respiratory: bilateral: diminished - Cardiovascular Rhythm: regular Abnormal Heart Sounds: Present: systolic murmur - Labs CBC & Chem 7: 02/17/22 05:14 02/17/22 05:14 Labs: Abnormal Lab Results - Last 24 Hours (Table) 02/16/22 02/16/22 02/16/22 Range/Units 11:33 17:10 23:42 RBC (4.30-5.90) m/uL Hgb (13.0-17.5) gm/dL Hct (39.0-53.0) % MCH (25.0-35.0) pg MCHC (31.0-37.0) g/dL RDW (11.5-15.5) % ABG pH (7.35-7.45) ABG pO2 (83-108) mmHg ABG HCO3 (21-25) mmol/L ABG Total CO2 (19-24) mmol/L ABG O2 Saturation (94-97) % ABG Hematocrit (34.0-46.0) % Hemoglobin (13.0-17.5) gm/dL Glucose (74-99) mg/dL POC Glucose (mg/dL) 153 H 161 H 147 H (70-110) mg/dL Calcium (8.4-10.2) mg/dL Total Protein (6.3-8.2) g/dL Albumin (3.5-5.0) g/dL 02/17/22 02/17/22 02/17/22 Range/Units 05:14 05:14 05:15 RBC 3.37 L (4.30-5.90) m/uL Hgb 7.7 L (13.0-17.5) gm/dL Hct 27.6 L (39.0-53.0) % MCH 22.8 L (25.0-35.0) pg MCHC 27.9 L (31.0-37.0) g/dL RDW 18.3 H (11.5-15.5) % ABG pH (7.35-7.45) ABG pO2 (83-108) mmHg ABG HCO3 (21-25) mmol/L ABG Total CO2 (19-24) mmol/L ABG O2 Saturation (94-97) % ABG Hematocrit (34.0-46.0) % Hemoglobin (13.0-17.5) gm/dL Glucose 148 H (74-99) mg/dL POC Glucose (mg/dL) 165 H (70-110) mg/dL Calcium 7.6 L (8.4-10.2) mg/dL Total Protein 4.9 L (6.3-8.2) g/dL Albumin 2.5 L (3.5-5.0) g/dL 02/17/22 Range/Units 05:23 RBC (4.30-5.90) m/uL Hgb (13.0-17.5) gm/dL Hct (39.0-53.0) % MCH (25.0-35.0) pg MCHC (31.0-37.0) g/dL RDW (11.5-15.5) % ABG pH 7.47 H (7.35-7.45) ABG pO2 78 L (83-108) mmHg ABG HCO3 29 H (21-25) mmol/L ABG Total CO2 31 H (19-24) mmol/L ABG O2 Saturation 97.2 H (94-97) % ABG Hematocrit 23 L (34.0-46.0) % Hemoglobin 7.6 L (13.0-17.5) gm/dL Glucose (74-99) mg/dL POC Glucose (mg/dL) (70-110) mg/dL Calcium (8.4-10.2) mg/dL Total Protein (6.3-8.2) g/dL Albumin (3.5-5.0) g/dL Microbiology - Last 24 Hours (Table) 02/12/22 19:25 Anaerobic Culture - Final Abdomen Anaerobic Gm Negative Bacilli 02/12/22 16:57 Blood Culture - Preliminary Blood No Growth after 96 hours 02/13/22 15:57 Gram Stain - Final Sputum Sputum Culture - Final Malathi sp,not albicans/galbr 02/13/22 07:00 Blood Culture - Preliminary Blood No Growth after 72 hours Assessment and Plan Assessment: Assessment Acute on chronic heart failure with preserved ejection fraction Acute coronary syndrome likely related to hypoxemia/sepsis Acute hypoxic respiratory failure Severe aortic stenosis Cardiac arrhythmia Multiple comorbid conditions Plan Giving the CVP which is 14 I will suggest give the patient small dose of Lasix maybe 1 dose today Continue monitor the kidney function and electrolytes The right wean the patient from norepinephrine Follow-up with the patient
[2022-02-17] MEDS: LACTULOSE 20 GM/30 ML CUP PO SCH ×2 (08:28→20:17)
[2022-02-17] MEDS: CHLORHEXIDINE GLUCONATE 15 ML CUP MUCOUS MEM SCH ×2 (08:28→20:18)
[2022-02-17] MEDS: PANTOPRAZOLE 40 MG/10 ML VIAL IVP SCH (08:28)
[2022-02-17] MEDS: OXYBUTYNIN CHLORIDE 5 MG TAB PO SCH ×2 (08:29→20:19)
[2022-02-17] MEDS: COLLAGENASE 250 UNIT/GM OINTMENT 30 GM TUBE TOPICAL SCH (08:29)
[2022-02-17] MEDS: HEPARIN SODIUM,PORCINE/PF 5,000 UNIT/0.5 ML SYRINGE SQ SCH ×2 (08:29→20:18)
--- NOTE | 2022-02-17 11:44 | P.PN ---
Subjective Progress Note Date: 02/17/22 Principal diagnosis: Respiratory failure. Reevaluated today on 02/14/22, remains in the ICU, intubated and mechanically ventilated. Patient is on assist control rate of 20, volume 500 FiO2 40% and I cut it down to 35% PEEP of 8 and I cut it down to 5. ABG today showed a pO2 of 184 pCO2 39 pH of 7.48. Patient is requiring norepinephrine at 0.09 mcg/kg/m is on IV fluid 0.9 normal saline at 75 mL per hour and he is on propofol at 40 mcg/kg/m. Receiving vital HPI 30 mL per hour. Patient remains on Zosyn, considering his CVP is only 7 and urine output is marginal I will go ahead and recommended a liter bolus of 0.9 normal saline. We will cut down the propofol and hopefully cut down on the norepinephrine if his blood pressure improves. May improve with fluid bolus and with cutting down the dose of propofol WBC count is 8.5 hemoglobin 7.6 hematocrit is 27.6 basic metabolic profile is normal bicarb is normal BUN is 41 creatinine 1.2, improving since yesterday creatinine was 1.51 a chest x-ray showed pleural parenchymal changes, air bronchogram noted in the left retrocardiac area, highly suspicious for pneumonia. Reevaluated today on 02/15/22, patient remains on the ventilator, his on assist control rate of 20 to light and 500 FiO2 35% PEEP of 5 ABG showed a pO2 of 100 pCO2 38 pH of 7.49. Patient remains on antibiotics in the form of Zosyn he is also on diuretics, the diuretics was increased since the patient continues to have findings suggestive of mild fluid overload and he also has findings suggestive of pneumonia. Chest x-ray is showing cardiomegaly with pulmonary vascular congestion and bilateral pleural effusion and bibasilar airspace disease WBC count is 8.1 hemoglobin is 7.7, basic metabolic profile is normal renal profile is normal, creatinine has been steadily improving since admission, it is 1.01 today. Sputum cultures are negative except for some yeast species and his wound culture is showing presumptive staph aureus, final sensitivities pending. In the meantime the patient is on Zosyn. He did receive vancomycin initially. Reevaluated today on 02/16/22, patient remains in the ICU, intubated and mechanically ventilated. He is on assist control rate of 20- tidal volume of 500 FiO2 35% PEEP of 5. ABG showed a pO2 of 100 pCO2 40 pH of 7.50 patient remains sedated, he is requiring more and norepinephrine overnight, he is on pro pofol at 35 mcg/kg/m, norepinephrine at 0.12 mcg/kg/m patient has not had a bowel movement since admission, lactulose. Today on plan to give the patient fluid boluses 500 mL at a time, and I plan to hold his Lasix. Hoping that fluid boluses will improve his blood pressure and hopefully down on the dose of norepinephrine. Patient remains on vital HPI 38 mL per hour. His antibiotics were transitioned to Unasyn since the patient has mostly staph aureus, MSSA in the wound culture. Yesterday the patient weaned but could not be extubated mostly because of worsening tachycardia and worsening endotracheal secretions. Hence I had to place him back on assist control mode of mechanical ventilation and did not go further to extubate. Labs today demonstrate is 8.6 and global was 8.1 lites are normal, renal profile is normal. Sputum cultures are negative blood cultures are - abdominal wound cultures are positive for MSSA. Progress note dated 02/17/2022. This is a 76-year-old male who was admitted on February 12, for her hypercapnic respiratory failure, CO2 narcosis, and CHF. The patient was intubated on February 13. He remains on the mechanical ventilator. The patient is on volume assist control, rate 20, tidal volume 500, FiO2 35%, and PEEP of 5. Blood gases show pO2 78, pCO2 40, and a pH is 7.47. The patient remains on propofol, at 40 mcg/kg/m, norepinephrine at 8 mcg/m, saline at 20 mL an hour, and vital high protein at 30 mL an hour, which is goal. The patient remains on Unasyn. White count 7.8, hemoglobin 7.7, hematocrit 27.6, and platelet count 282,000. Sodium 139, potassium 3.8, chlorides 104, CO2 26, BUN 20, and creatinine 0.83. Abdominal wound cultures are showing Staphylococcus aureus, and anaerobic gram- negative bacilli. Chest x-ray shows pulmonary vascular congestion, small to moderate bilateral pleural effusions, and cardiomegaly. Objective - Vital Signs Vital signs: Vital Signs Temp 99.4 F 02/17/22 04:00 Pulse 93 02/17/22 11:26 Resp 20 02/17/22 07:00 BP 103/60 02/17/22 07:00 Pulse Ox 97 02/17/22 07:00 FiO2 35 02/17/22 10:43 Intake & Output 02/16/22 02/17/22 02/17/22 18:59 06:59 18:59 Intake Total 2613.888 1425.885 Output Total 535 505 Balance 2078.888 920.885 Weight 101 kg 101 kg Intake: IV 1528 412 0.9 KVO 90 240 Ampicillin-Sulbactam 3 gm 200 100 In Sodium Chloride 0.9% 100 ml @ 200 mls/hr IVPB Q6HR [facility] Rx#:[id number] Sodium Chloride 0.9% 1, 160 000 ml @ 75 mls/hr IV . [id number] [facility] Rx#:[id number] Sodium Chloride 0.9% 500 1000 ml 500 ml @ 999 mls/hr IV .Q31M [facility] Rx#:[id number] pressure bag 78 72 Intake, IV Titration 387.888 519.885 Amount Norepinephrine 32 mg In 20.813 Sodium Chloride 0.9% 218 ml @ 0.05 MCG/KG/MIN 2. 344 mls/hr IV .Q24H [facility] Rx#:[id number] Norepinephrine 4 mg In 269.599 201.739 Sodium Chloride 0.9% 250 ml @ 0.05 MCG/KG/MIN 20. 738 mls/hr IV .[id number] [facility] Rx#:[id number] propofoL 1,000 mg In 118.289 297.333 Empty Bag 1 bag @ 5 MCG/ KG/MIN 3.266 mls/hr IV . Q24H [facility] Rx#:[id number] Tube Feeding 608 494 Other 90 Output: Urine 535 505 Other: Voiding Method Indwelling Catheter Indwelling Catheter ABP, PAP, CO, CI - Last Documented Arterial Blood Pressure 109/54 - Exam No acute distress, sedated, with an orally placed endotracheal tube. HEENT examination is grossly unremarkable. Neck supple. Full range of motion. No adenopathy thyromegaly or neck vein distention. Cardiovascular examination reveals regular rhythm rate. S1-S2 normal. No S3 or S4. A systolic murmur is noted. Lungs reveal scattered bilateral rhonchi. No wheezes. No crackles. Breath sounds equal bilaterally. Saturations are adequate. Abdomen soft bowel sounds are heard. No masses or tenderness. Extremities are intact. No cyanosis clubbing or edema. Skin is without rash or lesion. Neurologic examination cannot be evaluated. - Labs CBC & Chem 7: 02/17/22 05:14 02/17/22 05:14 Labs: Abnormal Lab Results - Last 24 Hours (Table) 02/16/22 02/16/22 02/16/22 Range/Units 11:33 17:10 23:42 RBC (4.30-5.90) m/uL Hgb (13.0-17.5) gm/dL Hct (39.0-53.0) % MCH (25.0-35.0) pg MCHC (31.0-37.0) g/dL RDW (11.5-15.5) % ABG pH (7.35-7.45) ABG pO2 (83-108) mmHg ABG HCO3 (21-25) mmol/L ABG Total CO2 (19-24) mmol/L ABG O2 Saturation (94-97) % ABG Hematocrit (34.0-46.0) % Hemoglobin (13.0-17.5) gm/dL Glucose (74-99) mg/dL POC Glucose (mg/dL) 153 H 161 H 147 H (70-110) mg/dL Calcium (8.4-10.2) mg/dL Total Protein (6.3-8.2) g/dL Albumin (3.5-5.0) g/dL 02/17/22 02/17/22 02/17/22 Range/Units 05:14 05:14 05:15 RBC 3.37 L (4.30-5.90) m/uL Hgb 7.7 L (13.0-17.5) gm/dL Hct 27.6 L (39.0-53.0) % MCH 22.8 L (25.0-35.0) pg MCHC 27.9 L (31.0-37.0) g/dL RDW 18.3 H (11.5-15.5) % ABG pH (7.35-7.45) ABG pO2 (83-108) mmHg ABG HCO3 (21-25) mmol/L ABG Total CO2 (19-24) mmol/L ABG O2 Saturation (94-97) % ABG Hematocrit (34.0-46.0) % Hemoglobin (13.0-17.5) gm/dL Glucose 148 H (74-99) mg/dL POC Glucose (mg/dL) 165 H (70-110) mg/dL Calcium 7.6 L (8.4-10.2) mg/dL Total Protein 4.9 L (6.3-8.2) g/dL Albumin 2.5 L (3.5-5.0) g/dL 02/17/22 Range/Units 05:23 RBC (4.30-5.90) m/uL Hgb (13.0-17.5) gm/dL Hct (39.0-53.0) % MCH (25.0-35.0) pg MCHC (31.0-37.0) g/dL RDW (11.5-15.5) % ABG pH 7.47 H (7.35-7.45) ABG pO2 78 L (83-108) mmHg ABG HCO3 29 H (21-25) mmol/L ABG Total CO2 31 H (19-24) mmol/L ABG O2 Saturation 97.2 H (94-97) % ABG Hematocrit 23 L (34.0-46.0) % Hemoglobin 7.6 L (13.0-17.5) gm/dL Glucose (74-99) mg/dL POC Glucose (mg/dL) (70-110) mg/dL Calcium (8.4-10.2) mg/dL Total Protein (6.3-8.2) g/dL Albumin (3.5-5.0) g/dL Microbiology - Last 24 Hours (Table) 02/13/22 07:00 Blood Culture - Preliminary Blood No Growth after 96 hours 02/12/22 19:25 Anaerobic Culture - Final Abdomen Anaerobic Gm Negative Bacilli 02/12/22 16:57 Blood Culture - Preliminary Blood No Growth after 96 hours 02/13/22 15:57 Gram Stain - Final Sputum Sputum Culture - Final Malathi sp,not albicans/galbr Assessment and Plan Assessment: Acute hypoxemic and hypercapnic respiratory failure, requiring intubation and mechanical ventilation on February 13, 2022. Probable sepsis/septic shock. Healthcare acquired pneumonia. Surgical site wound infection, secondary to methicillin sensitive Staphylococcus aureus. Acute kidney injury. Severe aortic stenosis. Chronic diastolic CHF. Type 2 diabetes mellitus. Chronic anemia. Benign essential hypertension. Chronic polycythemia. History of bowel resection, December 2021. Plan: Plan dated 02/17/2022. The patient will have a daily interruption of sedation. He may or may not be ready for a spontaneous breathing trial. Labs, x-rays, and medications are reviewed. He currently remains on propofol at 40 mcg/kg/m, and a modest dose of norepinephrine at 8 mcg/m. He is receiving tube feedings. He remains on Unasyn. We will continue to follow make recommendations along the way. Prognosis is certainly guarded. We do continue GI and DVT prophylaxis. Time with Patient: Greater than 30
--- NOTE | 2022-02-17 12:01 | P.PN ---
Subjective Progress Note Date: 02/17/22 CHIEF COMPLAINT: Respiratory failure HISTORY OF PRESENT ILLNESS: Patient remains intubated and on mechanical intubation in the ICU. Patient is undergoing a sedation holiday today. He is on lactulose for his constipation. He did have 2 smears of a BM. Wound culture from the abdomen did grow MSSA. Patient is on Unasyn. Patient being treated for pneumonia and CHF. Patient did have a temp of 101.2 last night. WBC 7.8 Hgb 7.7 platelet 282 Patient seen and examined with Dr. Sullivan PHYSICAL EXAM: VITAL SIGNS: Reviewed. GENERAL: Intubated ABDOMEN: Soft. Obese. Mildly distended. Clearish drainage from abdominal incision ASSESSMENT: 1. Abdominal wound surgical site infection 2. 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 History of surgical site infection during last hospitalization 4. 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 Signing provider agrees with the documented findings, assessment, and plan of care. Objective - Vital Signs Vital signs: Vital Signs Temp 99.4 F 02/17/22 04:00 Pulse 93 02/17/22 11:26 Resp 20 02/17/22 07:00 BP 103/60 02/17/22 07:00 Pulse Ox 97 02/17/22 07:00 FiO2 35 02/17/22 10:43 Intake & Output 02/16/22 02/17/22 02/17/22 18:59 06:59 18:59 Intake Total 2613.888 1425.885 81.429 Output Total 535 505 Balance 2078.888 920.885 81.429 Weight 101 kg 101 kg Intake: IV 1528 412 0.9 KVO 90 240 Ampicillin-Sulbactam 3 gm 200 100 In Sodium Chloride 0.9% 100 ml @ 200 mls/hr IVPB Q6HR [facility] Rx#:[id number] Sodium Chloride 0.9% 1, 160 000 ml @ 75 mls/hr IV . [id number] [facility] Rx#:[id number] Sodium Chloride 0.9% 500 1000 ml 500 ml @ 999 mls/hr IV .Q31M [facility] Rx#:[id number] pressure bag 78 72 Intake, IV Titration 387.888 519.885 81.429 Amount Norepinephrine 32 mg In 20.813 Sodium Chloride 0.9% 218 ml @ 0.05 MCG/KG/MIN 2. 344 mls/hr IV .Q24H [facility] Rx#:[id number] Norepinephrine 4 mg In 269.599 201.739 Sodium Chloride 0.9% 250 ml @ 0.05 MCG/KG/MIN 20. 738 mls/hr IV .[id number] [facility] Rx#:[id number] propofoL 1,000 mg In 118.289 297.333 81.429 Empty Bag 1 bag @ 5 MCG/ KG/MIN 3.266 mls/hr IV . Q24H [facility] Rx#:[id number] Tube Feeding 608 494 Other 90 Output: Urine 535 505 Other: Voiding Method Indwelling Catheter Indwelling Catheter ABP, PAP, CO, CI - Last Documented Arterial Blood Pressure 109/54 - Labs CBC & Chem 7: 02/17/22 05:14 02/17/22 05:14 Labs: Abnormal Lab Results - Last 24 Hours (Table) 02/16/22 02/16/22 02/17/22 Range/Units 17:10 23:42 05:14 RBC 3.37 L (4.30-5.90) m/uL Hgb 7.7 L (13.0-17.5) gm/dL Hct 27.6 L (39.0-53.0) % MCH 22.8 L (25.0-35.0) pg MCHC 27.9 L (31.0-37.0) g/dL RDW 18.3 H (11.5-15.5) % ABG pH (7.35-7.45) ABG pO2 (83-108) mmHg ABG HCO3 (21-25) mmol/L ABG Total CO2 (19-24) mmol/L ABG O2 Saturation (94-97) % ABG Hematocrit (34.0-46.0) % Hemoglobin (13.0-17.5) gm/dL Glucose (74-99) mg/dL POC Glucose (mg/dL) 161 H 147 H (70-110) mg/dL Calcium (8.4-10.2) mg/dL Total Protein (6.3-8.2) g/dL Albumin (3.5-5.0) g/dL 02/17/22 02/17/22 02/17/22 Range/Units 05:14 05:15 05:23 RBC (4.30-5.90) m/uL Hgb (13.0-17.5) gm/dL Hct (39.0-53.0) % MCH (25.0-35.0) pg MCHC (31.0-37.0) g/dL RDW (11.5-15.5) % ABG pH 7.47 H (7.35-7.45) ABG pO2 78 L (83-108) mmHg ABG HCO3 29 H (21-25) mmol/L ABG Total CO2 31 H (19-24) mmol/L ABG O2 Saturation 97.2 H (94-97) % ABG Hematocrit 23 L (34.0-46.0) % Hemoglobin 7.6 L (13.0-17.5) gm/dL Glucose 148 H (74-99) mg/dL POC Glucose (mg/dL) 165 H (70-110) mg/dL Calcium 7.6 L (8.4-10.2) mg/dL Total Protein 4.9 L (6.3-8.2) g/dL Albumin 2.5 L (3.5-5.0) g/dL Microbiology - Last 24 Hours (Table) 02/13/22 07:00 Blood Culture - Preliminary Blood No Growth after 96 hours 02/12/22 19:25 Anaerobic Culture - Final Abdomen Anaerobic Gm Negative Bacilli 02/12/22 16:57 Blood Culture - Preliminary Blood No Growth after 96 hours 02/13/22 15:57 Gram Stain - Final Sputum Sputum Culture - Final Malathi sp,not albicans/galbr
--- NOTE | 2022-02-17 12:11 | P.PN ---
Subjective Progress Note Date: 02/17/22 Pt still on precedex, intubated. Receiving lasix for high CVP. Gen: Intubated, sedated HEENT: normocephalic, atraumatic, good hearing acuity, moist mucous membranes Resp: Ventilator dependent CVS: good distal perfusion x 4, GI: soft, wound dehiscence with 2 areas : no SPT, no CVAT, victoria catheter is present MSK: no pitting edema, no clubbing Neuro: non-focal Assessment/plan: 76 year old male with DM , severe aortic stenosis , recent surgical repair of bleeding acute diverticulitis about a month ago. brought in today for altered mental status , found to have acute hypercapnic respiratory failure , possible pneumonia , bilateral lower extremity edema Acute Hypoxemic and Hypercarbic Respiratory Failure Septic Shock with Toxic/Metabolic Encephalopathy Community Acquired Pneumonia Surgical Site Infection s/p Bowel Resection Acute Kidney Injury - Admit to ICU, telemetry - ICU, ID consultation appreciated - Wound Care consult - Surgery consult - Vancomycin, Zosyn - f/u BCx - NGTD, Wound Cx - staph aureus - IVF - Levophed - Propofol - Monitor I/Os, UOP - Daily labs Severe Aortic Stenosis Chronic Diastolic Heart Failure - strict I/Os, daily weights - cardiology consult - f/u Echo DM - Insulin sliding scale Q6hr guarded prognosis ICU care full code DVT PPX heparin sc tid Objective - Vital Signs Vital signs: Vital Signs Temp 99.4 F 02/17/22 04:00 Pulse 93 02/17/22 11:26 Resp 20 02/17/22 07:00 BP 103/60 02/17/22 07:00 Pulse Ox 97 02/17/22 07:00 FiO2 35 02/17/22 10:43 Intake & Output 02/16/22 02/17/22 02/17/22 18:59 06:59 18:59 Intake Total 2613.888 1425.885 81.429 Output Total 535 505 Balance 2078.888 920.885 81.429 Weight 101 kg 101 kg Intake: IV 1528 412 0.9 KVO 90 240 Ampicillin-Sulbactam 3 gm 200 100 In Sodium Chloride 0.9% 100 ml @ 200 mls/hr IVPB Q6HR [facility] Rx#:[id number] Sodium Chloride 0.9% 1, 160 000 ml @ 75 mls/hr IV . [id number] [facility] Rx#:[id number] Sodium Chloride 0.9% 500 1000 ml 500 ml @ 999 mls/hr IV .Q31M [facility] Rx#:[id number] pressure bag 78 72 Intake, IV Titration 387.888 519.885 81.429 Amount Norepinephrine 32 mg In 20.813 Sodium Chloride 0.9% 218 ml @ 0.05 MCG/KG/MIN 2. 344 mls/hr IV .Q24H [facility] Rx#:[id number] Norepinephrine 4 mg In 269.599 201.739 Sodium Chloride 0.9% 250 ml @ 0.05 MCG/KG/MIN 20. 738 mls/hr IV .[id number] [facility] Rx#:[id number] propofoL 1,000 mg In 118.289 297.333 81.429 Empty Bag 1 bag @ 5 MCG/ KG/MIN 3.266 mls/hr IV . Q24H [facility] Rx#:[id number] Tube Feeding 608 494 Other 90 Output: Urine 535 505 Other: Voiding Method Indwelling Catheter Indwelling Catheter ABP, PAP, CO, CI - Last Documented Arterial Blood Pressure 109/54 - Labs CBC & Chem 7: 02/17/22 05:14 02/17/22 05:14 Labs: Abnormal Lab Results - Last 24 Hours (Table) 02/16/22 02/16/22 02/17/22 Range/Units 17:10 23:42 05:14 RBC 3.37 L (4.30-5.90) m/uL Hgb 7.7 L (13.0-17.5) gm/dL Hct 27.6 L (39.0-53.0) % MCH 22.8 L (25.0-35.0) pg MCHC 27.9 L (31.0-37.0) g/dL RDW 18.3 H (11.5-15.5) % ABG pH (7.35-7.45) ABG pO2 (83-108) mmHg ABG HCO3 (21-25) mmol/L ABG Total CO2 (19-24) mmol/L ABG O2 Saturation (94-97) % ABG Hematocrit (34.0-46.0) % Hemoglobin (13.0-17.5) gm/dL Glucose (74-99) mg/dL POC Glucose (mg/dL) 161 H 147 H (70-110) mg/dL Calcium (8.4-10.2) mg/dL Total Protein (6.3-8.2) g/dL Albumin (3.5-5.0) g/dL 02/17/22 02/17/22 02/17/22 Range/Units 05:14 05:15 05:23 RBC (4.30-5.90) m/uL Hgb (13.0-17.5) gm/dL Hct (39.0-53.0) % MCH (25.0-35.0) pg MCHC (31.0-37.0) g/dL RDW (11.5-15.5) % ABG pH 7.47 H (7.35-7.45) ABG pO2 78 L (83-108) mmHg ABG HCO3 29 H (21-25) mmol/L ABG Total CO2 31 H (19-24) mmol/L ABG O2 Saturation 97.2 H (94-97) % ABG Hematocrit 23 L (34.0-46.0) % Hemoglobin 7.6 L (13.0-17.5) gm/dL Glucose 148 H (74-99) mg/dL POC Glucose (mg/dL) 165 H (70-110) mg/dL Calcium 7.6 L (8.4-10.2) mg/dL Total Protein 4.9 L (6.3-8.2) g/dL Albumin 2.5 L (3.5-5.0) g/dL Microbiology - Last 24 Hours (Table) 02/13/22 07:00 Blood Culture - Preliminary Blood No Growth after 96 hours 02/12/22 19:25 Anaerobic Culture - Final Abdomen Anaerobic Gm Negative Bacilli 02/12/22 16:57 Blood Culture - Preliminary Blood No Growth after 96 hours 02/13/22 15:57 Gram Stain - Final Sputum Sputum Culture - Final Malathi sp,not albicans/galbr
[2022-02-17 12:37] LABS: Glucose,Whole Blood 174 mg/dL (70-110)
[2022-02-17 17:47] LABS: Glucose,Whole Blood 145 mg/dL (70-110)
[2022-02-17] MEDS: ASPIRIN 81 MG PO SCH (20:17)
[2022-02-17 23:31] LABS: Glucose,Whole Blood 179 mg/dL (70-110)
[2022-02-18] MEDS: IPRATROPIUM-ALBUTEROL 3 ML NEB INHALATION SCH ×6 (03:13→23:27)
[2022-02-18 05:11] LABS: ABG Base Excess 4.6 mmol/L; ABG HCO3 29 mmol/L (21-25); ABG Oxygen Saturation 97.8 % (94-97); ABG PCO2 41 mmHg (35-45); ABG PH 7.46 (7.35-7.45); ABG PO2 85 mmHg (83-108); ABG TCO2 30 mmol/L (19-24)
[2022-02-18 05:13] LABS: ABG Hematocrit 24 % (34.0-46.0); Allen Test Performed? no
[2022-02-18 05:50] LABS: Glucose,Whole Blood 161 mg/dL (70-110)
[2022-02-18] MEDS: AMPICILLIN-SULBACTAM 3 GM in SODIUM CHLORIDE 0.9% 100 ML IVPB SCH ×3 (05:54→18:37)
[2022-02-18] MEDS: INSULIN ASPART (NovoLOG) 100 UNIT/ML VIAL SQ SCH ×3 (05:54→18:38)
[2022-02-18 06:17] LABS: Anisocytosis Slight; HCT 28.8 % (39.0-53.0); Hypochromasia Marked; MCH 22.7 pg (25.0-35.0); MCHC 27.6 g/dL (31.0-37.0); MCV 82.3 fL (80.0-100.0); Mean Platelet Volume 7.5; Microcytosis Slight; Platelet Count 332 k/uL (150-450); Poikilocytosis Moderate; RDW 18.4 % (11.5-15.5); WBC 9.8 k/uL (3.8-10.6)
[2022-02-18 06:37] LABS: ALT 9 U/L (4-49); AST 29 U/L (17-59); African American GFR (CKD) >90 (>60 ml/min/1.73 sqM); Albumin 2.6 g/dL (3.5-5.0); Alkaline Phosphatase 86 U/L (38-126); Anion Gap 9 mmol/L; Bilirubin, Delta 0.6 mg/dL (0.0-0.2); Bilirubin,Unconjugated 0.2 mg/dL (0.0-1.1); Blood Urea Nitrogen 21 mg/dL (9-20); Calcium 7.7 mg/dL (8.4-10.2); Carbon Dioxide 26 mmol/L (22-30); Chloride 104 mmol/L (98-107); Glucose 149 mg/dL (74-99); Non-African American GFR(CKD) 86 (>60 ml/min/1.73 sqM); Potassium 3.9 mmol/L (3.5-5.1); Sodium 139 mmol/L (137-145); Total Bilirubin 0.8 mg/dL (0.2-1.3)
[2022-02-18 06:53] LABS: Lymphocytes # (M) 1.18 k/uL (1.0-4.8); Monocytes # (M) 0.69 k/uL (0-1.0); Neutrophils # (M) 7.74 k/uL (1.3-7.7); Neutrophils % (M) 79 %; Nucleated Red Blood Cells 0 /100 WBC (0-0); Total Cells Counted 100
[2022-02-18 06:54] LABS: Polychromasia Present
[2022-02-18] MEDS ORDERED: POTASSIUM CHLORIDE 20 MEQ in WATER FOR INJECTION 1 100ML.BAG IVPB ONE (07:30)
--- NOTE | 2022-02-18 07:32 | P.PN ---
Subjective Progress Note Date: 02/18/22 Principal diagnosis: Heart failure with preserved ejection fraction/severe aortic stenosis This is a 76-year-old gentleman with aortic stenosis and chronic kidney disease as well as hypertension and dyslipidemia as well as multiple comorbid conditions was admitted to the hospital with acute on chronic diastolic heart failure and he developed respiratory failure requiring intubation and mechanical ventilation. The patient was seen this morning. He continues to be intubated on mechanical ventilation and continues to be unstable and recur norepinephrine. Overall the prognosis is not good. Pulmonary and intensive care team on the case and they felt yesterday that the patient is not ready to go to a trial of possible extubation. Objective - Vital Signs Vital signs: Vital Signs Temp 98.9 F 02/18/22 04:00 Pulse 103 H 02/18/22 07:00 Resp 20 02/18/22 07:00 BP 103/60 02/18/22 05:45 Pulse Ox 94 L 02/18/22 07:00 FiO2 35 02/18/22 07:20 Intake & Output 02/17/22 02/18/22 02/18/22 18:59 06:59 18:59 Intake Total 055.589 6318.044 50 Output Total 505 495 35 Balance 353.213 711.044 15 Weight 101 kg 101 kg Intake: IV 386 479 20 0.9 KVO 220 240 20 Ampicillin-Sulbactam 3 gm 100 200 In Sodium Chloride 0.9% 100 ml @ 200 mls/hr IVPB Q6HR [facility] Rx#:[id number] pressure bag 66 39 Intake, IV Titration 374.213 257.044 Amount Ampicillin-Sulbactam 3 gm 100 In Sodium Chloride 0.9% 100 ml @ 200 mls/hr IVPB Q6HR [facility] Rx#:[id number] Norepinephrine 32 mg In 53.375 Sodium Chloride 0.9% 218 ml @ 0.05 MCG/KG/MIN 2. 344 mls/hr IV .Q24H [facility] Rx#:[id number] propofoL 1,000 mg In 220.838 257.044 Empty Bag 1 bag @ 5 MCG/ KG/MIN 3.266 mls/hr IV . Q24H [facility] Rx#:[id number] Tube Feeding 98 330 30 Other 140 Output: Urine 505 495 35 Other: Voiding Method Indwelling Catheter Indwelling Catheter ABP, PAP, CO, CI - Last Documented Arterial Blood Pressure 109/54 - Constitutional General appearance: Present: no acute distress - Respiratory Respiratory: bilateral: diminished - Cardiovascular Heart sounds: normal: S1, S2 Abnormal Heart Sounds: Present: systolic murmur - Labs CBC & Chem 7: 02/18/22 05:40 02/18/22 05:40 Labs: Abnormal Lab Results - Last 24 Hours (Table) 02/17/22 02/17/22 02/17/22 Range/Units 12:35 17:46 23:29 RBC (4.30-5.90) m/uL Hgb (13.0-17.5) gm/dL Hct (39.0-53.0) % MCH (25.0-35.0) pg MCHC (31.0-37.0) g/dL RDW (11.5-15.5) % Neutrophils # (Manual) (1.3-7.7) k/uL ABG pH (7.35-7.45) ABG HCO3 (21-25) mmol/L ABG Total CO2 (19-24) mmol/L ABG O2 Saturation (94-97) % ABG Hematocrit (34.0-46.0) % Hemoglobin (13.0-17.5) gm/dL BUN (9-20) mg/dL Glucose (74-99) mg/dL POC Glucose (mg/dL) 174 H 145 H 179 H (70-110) mg/dL Calcium (8.4-10.2) mg/dL Delta Bilirubin (0.0-0.2) mg/dL Total Protein (6.3-8.2) g/dL Albumin (3.5-5.0) g/dL 02/18/22 02/18/22 02/18/22 Range/Units 05:10 05:40 05:40 RBC 3.50 L (4.30-5.90) m/uL Hgb 8.0 L (13.0-17.5) gm/dL Hct 28.8 L (39.0-53.0) % MCH 22.7 L (25.0-35.0) pg MCHC 27.6 L (31.0-37.0) g/dL RDW 18.4 H (11.5-15.5) % Neutrophils # (Manual) 7.74 H (1.3-7.7) k/uL ABG pH 7.46 H (7.35-7.45) ABG HCO3 29 H (21-25) mmol/L ABG Total CO2 30 H (19-24) mmol/L ABG O2 Saturation 97.8 H (94-97) % ABG Hematocrit 24 L (34.0-46.0) % Hemoglobin 7.7 L (13.0-17.5) gm/dL BUN 21 H (9-20) mg/dL Glucose 149 H (74-99) mg/dL POC Glucose (mg/dL) (70-110) mg/dL Calcium 7.7 L (8.4-10.2) mg/dL Delta Bilirubin 0.6 H (0.0-0.2) mg/dL Total Protein 5.0 L (6.3-8.2) g/dL Albumin 2.6 L (3.5-5.0) g/dL 02/18/22 Range/Units 05:47 RBC (4.30-5.90) m/uL Hgb (13.0-17.5) gm/dL Hct (39.0-53.0) % MCH (25.0-35.0) pg MCHC (31.0-37.0) g/dL RDW (11.5-15.5) % Neutrophils # (Manual) (1.3-7.7) k/uL ABG pH (7.35-7.45) ABG HCO3 (21-25) mmol/L ABG Total CO2 (19-24) mmol/L ABG O2 Saturation (94-97) % ABG Hematocrit (34.0-46.0) % Hemoglobin (13.0-17.5) gm/dL BUN (9-20) mg/dL Glucose (74-99) mg/dL POC Glucose (mg/dL) 161 H (70-110) mg/dL Calcium (8.4-10.2) mg/dL Delta Bilirubin (0.0-0.2) mg/dL Total Protein (6.3-8.2) g/dL Albumin (3.5-5.0) g/dL Microbiology - Last 24 Hours (Table) 02/12/22 16:57 Blood Culture - Preliminary Blood No Growth after 120 hours 02/13/22 07:00 Blood Culture - Preliminary Blood No Growth after 96 hours Assessment and Plan Assessment: Assessment Acute on chronic heart failure with preserved ejection fraction Acute coronary syndrome likely related to hypoxemia/sepsis Acute hypoxic respiratory failure Severe aortic stenosis Cardiac arrhythmia Multiple comorbid conditions Plan Continue monitor the kidney function and electrolytes The right wean the patient from norepinephrine Follow-up with the patient
--- NOTE | 2022-02-18 08:01 | XR ---
EXAMINATION TYPE: XR chest 1V portable DATE OF EXAM: 02/18/2022 COMPARISON: 02/17/2022 HISTORY: Shortness of breath TECHNIQUE: Single frontal view of the chest is obtained. FINDINGS: ET tube and NG tube noted. Patient markedly rotated with diffuse interstitial pattern, enoc ateral effusion and infiltrate. Heart is enlarged and atherosclerotic aorta. Hyperinflation suggests COPD. IMPRESSION: Diffuse bilateral airspace disease with pleural effusion correlate for CHF otherwise con jewel bearing turner interstitial pneumonia. Findings stable.
[2022-02-18] MEDS: CHLORHEXIDINE GLUCONATE 15 ML CUP MUCOUS MEM SCH ×2 (08:30→20:14)
[2022-02-18] MEDS: HEPARIN SODIUM,PORCINE/PF 5,000 UNIT/0.5 ML SYRINGE SQ SCH ×2 (08:30→20:14)
[2022-02-18] MEDS: OXYBUTYNIN CHLORIDE 5 MG TAB PO SCH ×2 (08:30→20:15)
[2022-02-18] MEDS: LACTULOSE 20 GM/30 ML CUP PO SCH ×2 (08:30→20:14)
[2022-02-18] MEDS: PANTOPRAZOLE 40 MG/10 ML VIAL IVP SCH (08:31)
[2022-02-18] MEDS: COLLAGENASE 250 UNIT/GM OINTMENT 30 GM TUBE TOPICAL SCH (10:10)
--- NOTE | 2022-02-18 11:08 | P.PN ---
Subjective Progress Note Date: 02/18/22 Principal diagnosis: Respiratory failure. Reevaluated today on 02/14/22, remains in the ICU, intubated and mechanically ventilated. Patient is on assist control rate of 20, volume 500 FiO2 40% and I cut it down to 35% PEEP of 8 and I cut it down to 5. ABG today showed a pO2 of 184 pCO2 39 pH of 7.48. Patient is requiring norepinephrine at 0.09 mcg/kg/m is on IV fluid 0.9 normal saline at 75 mL per hour and he is on propofol at 40 mcg/kg/m. Receiving vital HPI 30 mL per hour. Patient remains on Zosyn, considering his CVP is only 7 and urine output is marginal I will go ahead and recommended a liter bolus of 0.9 normal saline. We will cut down the propofol and hopefully cut down on the norepinephrine if his blood pressure improves. May improve with fluid bolus and with cutting down the dose of propofol WBC count is 8.5 hemoglobin 7.6 hematocrit is 27.6 basic metabolic profile is normal bicarb is normal BUN is 41 creatinine 1.2, improving since yesterday creatinine was 1.51 a chest x-ray showed pleural parenchymal changes, air bronchogram noted in the left retrocardiac area, highly suspicious for pneumonia. Reevaluated today on 02/15/22, patient remains on the ventilator, his on assist control rate of 20 to light and 500 FiO2 35% PEEP of 5 ABG showed a pO2 of 100 pCO2 38 pH of 7.49. Patient remains on antibiotics in the form of Zosyn he is also on diuretics, the diuretics was increased since the patient continues to have findings suggestive of mild fluid overload and he also has findings suggestive of pneumonia. Chest x-ray is showing cardiomegaly with pulmonary vascular congestion and bilateral pleural effusion and bibasilar airspace disease WBC count is 8.1 hemoglobin is 7.7, basic metabolic profile is normal renal profile is normal, creatinine has been steadily improving since admission, it is 1.01 today. Sputum cultures are negative except for some yeast species and his wound culture is showing presumptive staph aureus, final sensitivities pending. In the meantime the patient is on Zosyn. He did receive vancomycin initially. Reevaluated today on 02/16/22, patient remains in the ICU, intubated and mechanically ventilated. He is on assist control rate of 20- tidal volume of 500 FiO2 35% PEEP of 5. ABG showed a pO2 of 100 pCO2 40 pH of 7.50 patient remains sedated, he is requiring more and norepinephrine overnight, he is on pro pofol at 35 mcg/kg/m, norepinephrine at 0.12 mcg/kg/m patient has not had a bowel movement since admission, lactulose. Today on plan to give the patient fluid boluses 500 mL at a time, and I plan to hold his Lasix. Hoping that fluid boluses will improve his blood pressure and hopefully down on the dose of norepinephrine. Patient remains on vital HPI 38 mL per hour. His antibiotics were transitioned to Unasyn since the patient has mostly staph aureus, MSSA in the wound culture. Yesterday the patient weaned but could not be extubated mostly because of worsening tachycardia and worsening endotracheal secretions. Hence I had to place him back on assist control mode of mechanical ventilation and did not go further to extubate. Labs today demonstrate is 8.6 and global was 8.1 lites are normal, renal profile is normal. Sputum cultures are negative blood cultures are - abdominal wound cultures are positive for MSSA. Progress note dated 02/17/2022. This is a 76-year-old male who was admitted on February 12, for her hypercapnic respiratory failure, CO2 narcosis, and CHF. The patient was intubated on February 13. He remains on the mechanical ventilator. The patient is on volume assist control, rate 20, tidal volume 500, FiO2 35%, and PEEP of 5. Blood gases show pO2 78, pCO2 40, and a pH is 7.47. The patient remains on propofol, at 40 mcg/kg/m, norepinephrine at 8 mcg/m, saline at 20 mL an hour, and vital high protein at 30 mL an hour, which is goal. The patient remains on Unasyn. White count 7.8, hemoglobin 7.7, hematocrit 27.6, and platelet count 282,000. Sodium 139, potassium 3.8, chlorides 104, CO2 26, BUN 20, and creatinine 0.83. Abdominal wound cultures are showing Staphylococcus aureus, and anaerobic gram- negative bacilli. Chest x-ray shows pulmonary vascular congestion, small to moderate bilateral pleural effusions, and cardiomegaly. Progress note dated 02/18/2022. 76-year-old male admitted on February 12, for hypercapnic respiratory failure, CO2 narcosis, and CHF. The patient was intubated the following day, on February 13. He remains on the mechanical ventilator. The patient is on volume assist control, rate 20, tidal volume 500, FiO2 85%, PEEP of 5. Blood gases show a PaO2 of 85, pCO2 41, and a pH is 7.46. The patient failed his daily interruption of sedation yesterday. We will attempted again today. Currently, norepinephrine is off, and propofol is off. He is getting saline at 20 mL an hour, and vital high protein at 30 mL an hour, which is goal. White count 9.8, hemoglobin 8, hematocrit 28.8, and platelet count 332,000. Sodium, potassium, chloride, CO2, anion gap, are all normal. BUN is 21, with a creatinine of 0.81. Albumin is 2.6. Chest x-ray shows diffuse airspace disease, and small effusions, consistent with CHF. Objective - Vital Signs Vital signs: Vital Signs Temp 99.2 F 02/18/22 08:00 Pulse 107 H 02/18/22 09:15 Resp 24 02/18/22 09:15 BP 103/60 02/18/22 09:00 Pulse Ox 95 02/18/22 09:15 FiO2 35 02/18/22 09:34 Intake & Output 02/17/22 02/18/22 02/18/22 18:59 06:59 18:59 Intake Total 362.232 6879.044 339.043 Output Total 505 495 370 Balance 353.213 711.044 -30.957 Weight 101 kg 101 kg Intake: IV 386 479 72 0.9 KVO 220 240 60 Ampicillin-Sulbactam 3 gm 100 200 In Sodium Chloride 0.9% 100 ml @ 200 mls/hr IVPB Q6HR [facility] Rx#:[id number] pressure bag 66 39 12 Intake, IV Titration 374.213 257.044 147.043 Amount Ampicillin-Sulbactam 3 gm 100 In Sodium Chloride 0.9% 100 ml @ 200 mls/hr IVPB Q6HR [facility] Rx#:[id number] Norepinephrine 32 mg In 53.375 47.043 Sodium Chloride 0.9% 218 ml @ 0.05 MCG/KG/MIN 2. 344 mls/hr IV .Q24H [facility] Rx#:[id number] propofoL 1,000 mg In 220.838 257.044 100.000 Empty Bag 1 bag @ 5 MCG/ KG/MIN 3.266 mls/hr IV . Q24H [facility] Rx#:[id number] Tube Feeding 98 330 90 Other 140 30 Output: Urine 505 495 370 Other: Voiding Method Indwelling Catheter Indwelling Catheter ABP, PAP, CO, CI - Last Documented Arterial Blood Pressure 99/50 - Exam No acute distress, sedated, with an orally placed endotracheal tube. HEENT examination is grossly unremarkable. Neck supple. Full range of motion. No adenopathy thyromegaly or neck vein distention. Cardiovascular examination reveals regular rhythm rate. S1-S2 normal. No S3 or S4. A systolic murmur is noted. Heart sounds are distant. Heart rate 107 bpm. Lungs reveal scattered bilateral rhonchi. No wheezes. No crackles. Breath sounds equal bilaterally. Saturations are 95%. Abdomen soft bowel sounds are heard. No masses or tenderness. Extremities are intact. No cyanosis clubbing or edema. Skin is without rash or lesion. Neurologic examination cannot be evaluated. - Labs CBC & Chem 7: 02/18/22 05:40 02/18/22 05:40 Labs: Abnormal Lab Results - Last 24 Hours (Table) 02/17/22 02/17/22 02/17/22 Range/Units 12:35 17:46 23:29 RBC (4.30-5.90) m/uL Hgb (13.0-17.5) gm/dL Hct (39.0-53.0) % MCH (25.0-35.0) pg MCHC (31.0-37.0) g/dL RDW (11.5-15.5) % Neutrophils # (Manual) (1.3-7.7) k/uL ABG pH (7.35-7.45) ABG HCO3 (21-25) mmol/L ABG Total CO2 (19-24) mmol/L ABG O2 Saturation (94-97) % ABG Hematocrit (34.0-46.0) % Hemoglobin (13.0-17.5) gm/dL BUN (9-20) mg/dL Glucose (74-99) mg/dL POC Glucose (mg/dL) 174 H 145 H 179 H (70-110) mg/dL Calcium (8.4-10.2) mg/dL Delta Bilirubin (0.0-0.2) mg/dL Total Protein (6.3-8.2) g/dL Albumin (3.5-5.0) g/dL 02/18/22 02/18/22 02/18/22 Range/Units 05:10 05:40 05:40 RBC 3.50 L (4.30-5.90) m/uL Hgb 8.0 L (13.0-17.5) gm/dL Hct 28.8 L (39.0-53.0) % MCH 22.7 L (25.0-35.0) pg MCHC 27.6 L (31.0-37.0) g/dL RDW 18.4 H (11.5-15.5) % Neutrophils # (Manual) 7.74 H (1.3-7.7) k/uL ABG pH 7.46 H (7.35-7.45) ABG HCO3 29 H (21-25) mmol/L ABG Total CO2 30 H (19-24) mmol/L ABG O2 Saturation 97.8 H (94-97) % ABG Hematocrit 24 L (34.0-46.0) % Hemoglobin 7.7 L (13.0-17.5) gm/dL BUN 21 H (9-20) mg/dL Glucose 149 H (74-99) mg/dL POC Glucose (mg/dL) (70-110) mg/dL Calcium 7.7 L (8.4-10.2) mg/dL Delta Bilirubin 0.6 H (0.0-0.2) mg/dL Total Protein 5.0 L (6.3-8.2) g/dL Albumin 2.6 L (3.5-5.0) g/dL 02/18/22 Range/Units 05:47 RBC (4.30-5.90) m/uL Hgb (13.0-17.5) gm/dL Hct (39.0-53.0) % MCH (25.0-35.0) pg MCHC (31.0-37.0) g/dL RDW (11.5-15.5) % Neutrophils # (Manual) (1.3-7.7) k/uL ABG pH (7.35-7.45) ABG HCO3 (21-25) mmol/L ABG Total CO2 (19-24) mmol/L ABG O2 Saturation (94-97) % ABG Hematocrit (34.0-46.0) % Hemoglobin (13.0-17.5) gm/dL BUN (9-20) mg/dL Glucose (74-99) mg/dL POC Glucose (mg/dL) 161 H (70-110) mg/dL Calcium (8.4-10.2) mg/dL Delta Bilirubin (0.0-0.2) mg/dL Total Protein (6.3-8.2) g/dL Albumin (3.5-5.0) g/dL Microbiology - Last 24 Hours (Table) 02/13/22 07:00 Blood Culture - Preliminary Blood No Growth after 120 hours 02/12/22 16:57 Blood Culture - Preliminary Blood No Growth after 120 hours Assessment and Plan Assessment: Acute hypoxemic and hypercapnic respiratory failure, requiring intubation and mechanical ventilation on February 13, 2022. Probable sepsis/septic shock. Healthcare acquired pneumonia. Surgical site wound infection, secondary to methicillin sensitive Staphylococcus aureus. Acute kidney injury. Severe aortic stenosis. Chronic diastolic CHF. Type 2 diabetes mellitus. Chronic anemia. Benign essential hypertension. Chronic polycythemia. History of bowel resection, December 2021. Plan: Plan dated 02/17/2022. The patient will have a daily interruption of sedation. He may or may not be ready for a spontaneous breathing trial. Labs, x-rays, and medications are reviewed. He currently remains on propofol at 40 mcg/kg/m, and a modest dose of norepinephrine at 8 mcg/m. He is receiving tube feedings. He remains on Unasyn. We will continue to follow make recommendations along the way. Prognosis is certainly guarded. We do continue GI and DVT prophylaxis. Plan dated 02/18/2022. The patient will be given another daily interruption of sedation today. Hopefully, he'll do better than he did yesterday. Currently, norepinephrine has been weaned off. Remains on tube feedings. Blood gases are consistent with a mild metabolic alkalosis. Labs, x-rays, and medications are reviewed. Prognosis is certainly guarded. We will continue to follow the patient and make recommendations along the way. We continue GI and DVT prophylaxis. Time with Patient: Greater than 30
[2022-02-18 11:48] LABS: Glucose,Whole Blood 159 mg/dL (70-110)
--- NOTE | 2022-02-18 12:01 | P.PN ---
Subjective Progress Note Date: 02/18/22 CHIEF COMPLAINT: Respiratory failure HISTORY OF PRESENT ILLNESS: Patient remains intubated and on mechanical intubation in the ICU. Patient is undergoing a sedation holiday again today. Levophed weaned off. He is on lactulose for his constipation. Having flatus. No BM. Wound culture from the abdomen did grew MSSA. Patient is on Unasyn. Patient being treated for pneumonia and CHF. Patient did have a temp of 101.2 last night. WBC 7.8 Hgb 7.7 platelet 282 Patient seen and examined with Dr. Tran PHYSICAL EXAM: VITAL SIGNS: Reviewed. GENERAL: Intubated ABDOMEN: Soft. Obese. Distended. Clearish drainage from abdominal incision wounds ASSESSMENT: 1. Abdominal wound. Per Dr. tran the MSSA growing in the abdominal wound is likely colonization 2. 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 History of surgical site infection during last hospitalization 4. Constipation PLAN: -Continue local wound care -Continue antibiotics -No surgical intervention planned -Continue ICU management and supportive care -Continue tube feed for nutrition support -Continue lactulose for constipation Physician Cras note has been reviewed by physician. Signing provider agrees with the documented findings, assessment, and plan of care. Objective - Vital Signs Vital signs: Vital Signs Temp 99.2 F 02/18/22 08:00 Pulse 114 H 02/18/22 11:28 Resp 20 02/18/22 11:00 BP 96/58 02/18/22 11:00 Pulse Ox 94 L 02/18/22 11:00 FiO2 35 02/18/22 11:47 Intake & Output 02/17/22 02/18/22 02/18/22 18:59 06:59 18:59 Intake Total 817.459 1696.044 451.903 Output Total 505 495 430 Balance 353.213 711.044 21.903 Weight 101 kg 101 kg Intake: IV 386 479 124 0.9 KVO 220 240 100 Ampicillin-Sulbactam 3 gm 100 200 In Sodium Chloride 0.9% 100 ml @ 200 mls/hr IVPB Q6HR [facility] Rx#:[id number] pressure bag 66 39 24 Intake, IV Titration 374.213 257.044 147.903 Amount Ampicillin-Sulbactam 3 gm 100 In Sodium Chloride 0.9% 100 ml @ 200 mls/hr IVPB Q6HR [facility] Rx#:[id number] Norepinephrine 32 mg In 53.375 47.903 Sodium Chloride 0.9% 218 ml @ 0.05 MCG/KG/MIN 2. 344 mls/hr IV .Q24H [facility] Rx#:[id number] propofoL 1,000 mg In 220.838 257.044 100.000 Empty Bag 1 bag @ 5 MCG/ KG/MIN 3.266 mls/hr IV . Q24H [facility] Rx#:[id number] Tube Feeding 98 330 150 Other 140 30 Output: Urine 505 495 430 Other: Voiding Method Indwelling Catheter Indwelling Catheter Indwelling Catheter ABP, PAP, CO, CI - Last Documented Arterial Blood Pressure 96/51 - Labs CBC & Chem 7: 02/18/22 05:40 02/18/22 05:40 Labs: Abnormal Lab Results - Last 24 Hours (Table) 02/17/22 02/17/22 02/17/22 Range/Units 12:35 17:46 23:29 RBC (4.30-5.90) m/uL Hgb (13.0-17.5) gm/dL Hct (39.0-53.0) % MCH (25.0-35.0) pg MCHC (31.0-37.0) g/dL RDW (11.5-15.5) % Neutrophils # (Manual) (1.3-7.7) k/uL ABG pH (7.35-7.45) ABG HCO3 (21-25) mmol/L ABG Total CO2 (19-24) mmol/L ABG O2 Saturation (94-97) % ABG Hematocrit (34.0-46.0) % Hemoglobin (13.0-17.5) gm/dL BUN (9-20) mg/dL Glucose (74-99) mg/dL POC Glucose (mg/dL) 174 H 145 H 179 H (70-110) mg/dL Calcium (8.4-10.2) mg/dL Delta Bilirubin (0.0-0.2) mg/dL Total Protein (6.3-8.2) g/dL Albumin (3.5-5.0) g/dL 02/18/22 02/18/22 02/18/22 Range/Units 05:10 05:40 05:40 RBC 3.50 L (4.30-5.90) m/uL Hgb 8.0 L (13.0-17.5) gm/dL Hct 28.8 L (39.0-53.0) % MCH 22.7 L (25.0-35.0) pg MCHC 27.6 L (31.0-37.0) g/dL RDW 18.4 H (11.5-15.5) % Neutrophils # (Manual) 7.74 H (1.3-7.7) k/uL ABG pH 7.46 H (7.35-7.45) ABG HCO3 29 H (21-25) mmol/L ABG Total CO2 30 H (19-24) mmol/L ABG O2 Saturation 97.8 H (94-97) % ABG Hematocrit 24 L (34.0-46.0) % Hemoglobin 7.7 L (13.0-17.5) gm/dL BUN 21 H (9-20) mg/dL Glucose 149 H (74-99) mg/dL POC Glucose (mg/dL) (70-110) mg/dL Calcium 7.7 L (8.4-10.2) mg/dL Delta Bilirubin 0.6 H (0.0-0.2) mg/dL Total Protein 5.0 L (6.3-8.2) g/dL Albumin 2.6 L (3.5-5.0) g/dL 02/18/22 02/18/22 Range/Units 05:47 11:45 RBC (4.30-5.90) m/uL Hgb (13.0-17.5) gm/dL Hct (39.0-53.0) % MCH (25.0-35.0) pg MCHC (31.0-37.0) g/dL RDW (11.5-15.5) % Neutrophils # (Manual) (1.3-7.7) k/uL ABG pH (7.35-7.45) ABG HCO3 (21-25) mmol/L ABG Total CO2 (19-24) mmol/L ABG O2 Saturation (94-97) % ABG Hematocrit (34.0-46.0) % Hemoglobin (13.0-17.5) gm/dL BUN (9-20) mg/dL Glucose (74-99) mg/dL POC Glucose (mg/dL) 161 H 159 H (70-110) mg/dL Calcium (8.4-10.2) mg/dL Delta Bilirubin (0.0-0.2) mg/dL Total Protein (6.3-8.2) g/dL Albumin (3.5-5.0) g/dL Microbiology - Last 24 Hours (Table) 02/13/22 07:00 Blood Culture - Preliminary Blood No Growth after 120 hours 02/12/22 16:57 Blood Culture - Preliminary Blood No Growth after 120 hours
[2022-02-18] MEDS: ACETAMINOPHEN TAB 325 MG TAB PO PRN (16:28)
--- NOTE | 2022-02-18 17:05 | P.PN ---
Subjective Progress Note Date: 02/18/22 Patient was seen and examined. He is currently intubated. Ventilator settings show rate 20, tidal volume 500, FiO2 85%, PEEP of 5. CBC shows Hg by 8.0 with MCV of 82.3. ABG shows 7.46 with HCO3 of 29. CMP shows BUN of 21, glucose 149, Ca 7.7. General: Sedated Derm: warm, dry Head: atraumatic, normocephalic, symmetric Eyes: EOMI, no lid lag, anicteric sclera Mouth: no lip lesion, mucus membranes moist Cardiovascular: Tachycardic, no murmur Lungs: Coarse breath sounds bilaterally, ventilator dependent Abdominal: soft, abdominal dressing c/d/i Ext: no gross muscle atrophy, no edema, no contractures Neuro: Unable to determine Psych: Unable to determine Assessment/plan: Acute Hypoxemic and Hypercarbic Respiratory Failure Septic Shock with Toxic/Metabolic Encephalopathy Community Acquired Pneumonia Surgical Site Infection s/p Bowel Resection Acute Kidney Injury - Admit to ICU, telemetry - ICU, ID consultation appreciated - Wound Care consult - Surgery consult - Unasyn - f/u BCx - NGTD, Wound Cx - staph aureus - IVF - Levophed discontinued - Propofol - Monitor I/Os, UOP - Daily labs Severe Aortic Stenosis Chronic Diastolic Heart Failure - Strict I/Os, daily weights - Cardiology on board - Echocardiogram shows EF of 45% with moderate concentric LVH, severe calcification of the mitral valve, severe aortic stenosis Normocytic anemia -Stable DM - Insulin sliding scale SC Q6H FULL CODE DVT PPX heparin SC BID Objective - Vital Signs Vital signs: Vital Signs Temp 100.7 F H 02/18/22 16:00 Pulse 117 H 02/18/22 16:19 Resp 20 02/18/22 16:19 BP 95/56 02/18/22 15:30 Pulse Ox 95 02/18/22 16:00 FiO2 35 02/18/22 16:00 Intake & Output 02/17/22 02/18/22 02/18/22 18:59 06:59 18:59 Intake Total 758.405 4682.044 775.903 Output Total 505 495 580 Balance 353.213 711.044 195.903 Weight 101 kg 101 kg Intake: IV 386 479 228 0.9 KVO 220 240 180 Ampicillin-Sulbactam 3 gm 100 200 In Sodium Chloride 0.9% 100 ml @ 200 mls/hr IVPB Q6HR [facility] Rx#:[id number] pressure bag 66 39 48 Intake, IV Titration 374.213 257.044 247.903 Amount Ampicillin-Sulbactam 3 gm 100 In Sodium Chloride 0.9% 100 ml @ 200 mls/hr IVPB Q6HR [facility] Rx#:[id number] Norepinephrine 32 mg In 53.375 47.903 Sodium Chloride 0.9% 218 ml @ 0.05 MCG/KG/MIN 2. 344 mls/hr IV .Q24H [facility] Rx#:[id number] propofoL 1,000 mg In 220.838 257.044 200.000 Empty Bag 1 bag @ 5 MCG/ KG/MIN 3.266 mls/hr IV . Q24H [facility] Rx#:[id number] Tube Feeding 98 330 270 Other 140 30 Output: Urine 505 495 580 Other: Voiding Method Indwelling Catheter Indwelling Catheter Indwelling Catheter ABP, PAP, CO, CI - Last Documented Arterial Blood Pressure 94/50 - Labs CBC & Chem 7: 02/18/22 05:40 02/18/22 05:40 Labs: Abnormal Lab Results - Last 24 Hours (Table) 02/17/22 02/17/22 02/18/22 Range/Units 17:46 23:29 05:10 RBC (4.30-5.90) m/uL Hgb (13.0-17.5) gm/dL Hct (39.0-53.0) % MCH (25.0-35.0) pg MCHC (31.0-37.0) g/dL RDW (11.5-15.5) % Neutrophils # (Manual) (1.3-7.7) k/uL ABG pH 7.46 H (7.35-7.45) ABG HCO3 29 H (21-25) mmol/L ABG Total CO2 30 H (19-24) mmol/L ABG O2 Saturation 97.8 H (94-97) % ABG Hematocrit 24 L (34.0-46.0) % Hemoglobin 7.7 L (13.0-17.5) gm/dL BUN (9-20) mg/dL Glucose (74-99) mg/dL POC Glucose (mg/dL) 145 H 179 H (70-110) mg/dL Calcium (8.4-10.2) mg/dL Delta Bilirubin (0.0-0.2) mg/dL Total Protein (6.3-8.2) g/dL Albumin (3.5-5.0) g/dL 02/18/22 02/18/22 02/18/22 Range/Units 05:40 05:40 05:47 RBC 3.50 L (4.30-5.90) m/uL Hgb 8.0 L (13.0-17.5) gm/dL Hct 28.8 L (39.0-53.0) % MCH 22.7 L (25.0-35.0) pg MCHC 27.6 L (31.0-37.0) g/dL RDW 18.4 H (11.5-15.5) % Neutrophils # (Manual) 7.74 H (1.3-7.7) k/uL ABG pH (7.35-7.45) ABG HCO3 (21-25) mmol/L ABG Total CO2 (19-24) mmol/L ABG O2 Saturation (94-97) % ABG Hematocrit (34.0-46.0) % Hemoglobin (13.0-17.5) gm/dL BUN 21 H (9-20) mg/dL Glucose 149 H (74-99) mg/dL POC Glucose (mg/dL) 161 H (70-110) mg/dL Calcium 7.7 L (8.4-10.2) mg/dL Delta Bilirubin 0.6 H (0.0-0.2) mg/dL Total Protein 5.0 L (6.3-8.2) g/dL Albumin 2.6 L (3.5-5.0) g/dL 02/18/22 Range/Units 11:45 RBC (4.30-5.90) m/uL Hgb (13.0-17.5) gm/dL Hct (39.0-53.0) % MCH (25.0-35.0) pg MCHC (31.0-37.0) g/dL RDW (11.5-15.5) % Neutrophils # (Manual) (1.3-7.7) k/uL ABG pH (7.35-7.45) ABG HCO3 (21-25) mmol/L ABG Total CO2 (19-24) mmol/L ABG O2 Saturation (94-97) % ABG Hematocrit (34.0-46.0) % Hemoglobin (13.0-17.5) gm/dL BUN (9-20) mg/dL Glucose (74-99) mg/dL POC Glucose (mg/dL) 159 H (70-110) mg/dL Calcium (8.4-10.2) mg/dL Delta Bilirubin (0.0-0.2) mg/dL Total Protein (6.3-8.2) g/dL Albumin (3.5-5.0) g/dL Microbiology - Last 24 Hours (Table) 02/13/22 07:00 Blood Culture - Preliminary Blood No Growth after 120 hours 02/12/22 16:57 Blood Culture - Preliminary Blood No Growth after 120 hours
[2022-02-18 17:06] LABS: Glucose,Whole Blood 176 mg/dL (70-110)
[2022-02-18] MEDS: ASPIRIN 81 MG PO SCH (20:14)
--- NOTE | 2022-02-18 21:46 | P.PN ---
Subjective Progress Note Date: 02/17/22 Principal diagnosis: Possible sepsis Patient is a 76-year-old male with a past medical history again for diverticulitis recurrent GI bleed in this patient who is status post laparotomy and no anterior resection on 01/15/2022 subsequently the [facility] the patient was brought for evaluation of confusion and increasing shortness of breath patient did not get intubated. On today's evaluation that is 02/17/2022, the patient remains to be afebrile, patient is intubated on the vent, FiO2 is stable at 35%, no significant purulent secretion through the ET or diarrhea reported by the nursing staff, patient not requiring pressor support Objective - Vital Signs Vital signs: Vital Signs Temp 98.4 F 02/17/22 12:00 Pulse 96 02/17/22 15:11 Resp 20 02/17/22 15:00 BP 103/60 02/17/22 07:00 Pulse Ox 100 02/17/22 15:00 FiO2 35 02/17/22 15:13 Intake & Output 02/16/22 02/17/22 02/17/22 18:59 06:59 18:59 Intake Total 2613.888 1425.885 457.429 Output Total 535 505 400 Balance 2078.888 920.885 57.429 Weight 101 kg 101 kg Intake: IV 1528 412 308 0.9 KVO 90 240 160 Ampicillin-Sulbactam 3 gm 200 100 100 In Sodium Chloride 0.9% 100 ml @ 200 mls/hr IVPB Q6HR [facility] Rx#:[id number] Sodium Chloride 0.9% 1, 160 000 ml @ 75 mls/hr IV . [id number] [facility] Rx#:[id number] Sodium Chloride 0.9% 500 1000 ml 500 ml @ 999 mls/hr IV .Q31M [facility] Rx#:[id number] pressure bag 78 72 48 Intake, IV Titration 387.888 519.885 81.429 Amount Norepinephrine 32 mg In 20.813 Sodium Chloride 0.9% 218 ml @ 0.05 MCG/KG/MIN 2. 344 mls/hr IV .Q24H [facility] Rx#:[id number] Norepinephrine 4 mg In 269.599 201.739 Sodium Chloride 0.9% 250 ml @ 0.05 MCG/KG/MIN 20. 738 mls/hr IV .[id number] [facility] Rx#:[id number] propofoL 1,000 mg In 118.289 297.333 81.429 Empty Bag 1 bag @ 5 MCG/ KG/MIN 3.266 mls/hr IV . Q24H [facility] Rx#:[id number] Tube Feeding 608 494 68 Other 90 Output: Urine 535 505 400 Other: Voiding Method Indwelling Catheter Indwelling Catheter Indwelling Catheter ABP, PAP, CO, CI - Last Documented Arterial Blood Pressure 114/55 - Exam GENERAL DESCRIPTION: An elderly male intubated on the vent RESPIRATORY SYSTEM: Unlabored breathing , decreased breath sounds at bases HEART: S1 S2 regular rate and rhythm , ABDOMEN: Soft , no tenderness EXTREMITIES: One plus edema feet - Labs CBC & Chem 7: 02/18/22 05:40 02/18/22 05:40 Labs: Abnormal Lab Results - Last 24 Hours (Table) 02/16/22 02/16/22 02/17/22 Range/Units 17:10 23:42 05:14 RBC 3.37 L (4.30-5.90) m/uL Hgb 7.7 L (13.0-17.5) gm/dL Hct 27.6 L (39.0-53.0) % MCH 22.8 L (25.0-35.0) pg MCHC 27.9 L (31.0-37.0) g/dL RDW 18.3 H (11.5-15.5) % ABG pH (7.35-7.45) ABG pO2 (83-108) mmHg ABG HCO3 (21-25) mmol/L ABG Total CO2 (19-24) mmol/L ABG O2 Saturation (94-97) % ABG Hematocrit (34.0-46.0) % Hemoglobin (13.0-17.5) gm/dL Glucose (74-99) mg/dL POC Glucose (mg/dL) 161 H 147 H (70-110) mg/dL Calcium (8.4-10.2) mg/dL Total Protein (6.3-8.2) g/dL Albumin (3.5-5.0) g/dL 02/17/22 02/17/22 02/17/22 Range/Units 05:14 05:15 05:23 RBC (4.30-5.90) m/uL Hgb (13.0-17.5) gm/dL Hct (39.0-53.0) % MCH (25.0-35.0) pg MCHC (31.0-37.0) g/dL RDW (11.5-15.5) % ABG pH 7.47 H (7.35-7.45) ABG pO2 78 L (83-108) mmHg ABG HCO3 29 H (21-25) mmol/L ABG Total CO2 31 H (19-24) mmol/L ABG O2 Saturation 97.2 H (94-97) % ABG Hematocrit 23 L (34.0-46.0) % Hemoglobin 7.6 L (13.0-17.5) gm/dL Glucose 148 H (74-99) mg/dL POC Glucose (mg/dL) 165 H (70-110) mg/dL Calcium 7.6 L (8.4-10.2) mg/dL Total Protein 4.9 L (6.3-8.2) g/dL Albumin 2.5 L (3.5-5.0) g/dL 02/17/22 Range/Units 12:35 RBC (4.30-5.90) m/uL Hgb (13.0-17.5) gm/dL Hct (39.0-53.0) % MCH (25.0-35.0) pg MCHC (31.0-37.0) g/dL RDW (11.5-15.5) % ABG pH (7.35-7.45) ABG pO2 (83-108) mmHg ABG HCO3 (21-25) mmol/L ABG Total CO2 (19-24) mmol/L ABG O2 Saturation (94-97) % ABG Hematocrit (34.0-46.0) % Hemoglobin (13.0-17.5) gm/dL Glucose (74-99) mg/dL POC Glucose (mg/dL) 174 H (70-110) mg/dL Calcium (8.4-10.2) mg/dL Total Protein (6.3-8.2) g/dL Albumin (3.5-5.0) g/dL Microbiology - Last 24 Hours (Table) 02/13/22 07:00 Blood Culture - Preliminary Blood No Growth after 96 hours 02/12/22 19:25 Anaerobic Culture - Final Abdomen Anaerobic Gm Negative Bacilli 02/12/22 16:57 Blood Culture - Preliminary Blood No Growth after 96 hours 02/13/22 15:57 Gram Stain - Final Sputum Sputum Culture - Final Malathi sp,not albicans/galbr Assessment and Plan (1) Abdominal wall defect, acquired Current Visit: Yes Status: Acute Code(s): M95.8 - OTH ACQUIRED DEFORMITIES OF MUSCULOSKELETAL SYSTEM SNOMED Code(s): 712388977150551 (2) Pneumonia Current Visit: Yes Status: Acute Code(s): J18.9 - PNEUMONIA, UNSPECIFIED ORGANISM SNOMED Code(s): 381874412 Plan: 1patient presented to hospital with confusion and increasing shortness of breath in this patient with evidence of ascites effusion and 3+ edema feet likely related to fluid overload underlying pneumonia less likely but not entirely excluded. 2patient with a nonhealing lower abdominal wound however there is no evidence of any surrounding redness and CT abdominal pelvis did not mention any abscess. 3abdominal cultures are growing MSSA and anaerobes, the patient sputum is growing Malathi. 4patient condition remains to be stable and will continue with Unasyn and monitor clinical course closely Time with Patient: Less than 30
--- NOTE | 2022-02-18 21:47 | P.PN ---
Subjective Progress Note Date: 02/18/22 Principal diagnosis: Possible sepsis Patient is a 76-year-old male with a past medical history again for diverticulitis recurrent GI bleed in this patient who is status post laparotomy and no anterior resection on 01/15/2022 subsequently the patient was at the assisted from it the patient was brought for evaluation of confusion and increasing shortness of breath patient did not get intubated. On today's evaluation that is 02/18/2022, the patient continues to be afebrile, patient remains to be intubated on the vent, FiO2 is stable at 35%, no significant purulent secretion through the ET or diarrhea reported by the nursing staff, Objective - Vital Signs Vital signs: Vital Signs Temp 99.2 F 02/18/22 08:00 Pulse 114 H 02/18/22 11:28 Resp 20 02/18/22 11:00 BP 96/58 02/18/22 11:00 Pulse Ox 94 L 02/18/22 11:00 FiO2 35 02/18/22 11:47 Intake & Output 02/17/22 02/18/22 02/18/22 18:59 06:59 18:59 Intake Total 129.220 0649.044 464.967 Output Total 505 495 430 Balance 353.213 711.044 34.967 Weight 101 kg 101 kg Intake: IV 386 479 124 0.9 KVO 220 240 100 Ampicillin-Sulbactam 3 gm 100 200 In Sodium Chloride 0.9% 100 ml @ 200 mls/hr IVPB Q6HR [facility] Rx#:[id number] pressure bag 66 39 24 Intake, IV Titration 374.213 257.044 160.967 Amount Ampicillin-Sulbactam 3 gm 100 In Sodium Chloride 0.9% 100 ml @ 200 mls/hr IVPB Q6HR [facility] Rx#:[id number] Norepinephrine 32 mg In 53.375 47.903 Sodium Chloride 0.9% 218 ml @ 0.05 MCG/KG/MIN 2. 344 mls/hr IV .Q24H [facility] Rx#:[id number] propofoL 1,000 mg In 220.838 257.044 113.064 Empty Bag 1 bag @ 5 MCG/ KG/MIN 3.266 mls/hr IV . Q24H [facility] Rx#:[id number] Tube Feeding 98 330 150 Other 140 30 Output: Urine 505 495 430 Other: Voiding Method Indwelling Catheter Indwelling Catheter Indwelling Catheter ABP, PAP, CO, CI - Last Documented Arterial Blood Pressure 96/51 - Exam GENERAL DESCRIPTION: An elderly male intubated on the vent RESPIRATORY SYSTEM: Unlabored breathing , decreased breath sounds at bases HEART: S1 S2 regular rate and rhythm , ABDOMEN: Soft , no tenderness EXTREMITIES: One plus edema feet - Labs CBC & Chem 7: 02/18/22 05:40 02/18/22 05:40 Labs: Abnormal Lab Results - Last 24 Hours (Table) 02/17/22 02/17/22 02/18/22 Range/Units 17:46 23:29 05:10 RBC (4.30-5.90) m/uL Hgb (13.0-17.5) gm/dL Hct (39.0-53.0) % MCH (25.0-35.0) pg MCHC (31.0-37.0) g/dL RDW (11.5-15.5) % Neutrophils # (Manual) (1.3-7.7) k/uL ABG pH 7.46 H (7.35-7.45) ABG HCO3 29 H (21-25) mmol/L ABG Total CO2 30 H (19-24) mmol/L ABG O2 Saturation 97.8 H (94-97) % ABG Hematocrit 24 L (34.0-46.0) % Hemoglobin 7.7 L (13.0-17.5) gm/dL BUN (9-20) mg/dL Glucose (74-99) mg/dL POC Glucose (mg/dL) 145 H 179 H (70-110) mg/dL Calcium (8.4-10.2) mg/dL Delta Bilirubin (0.0-0.2) mg/dL Total Protein (6.3-8.2) g/dL Albumin (3.5-5.0) g/dL 02/18/22 02/18/22 02/18/22 Range/Units 05:40 05:40 05:47 RBC 3.50 L (4.30-5.90) m/uL Hgb 8.0 L (13.0-17.5) gm/dL Hct 28.8 L (39.0-53.0) % MCH 22.7 L (25.0-35.0) pg MCHC 27.6 L (31.0-37.0) g/dL RDW 18.4 H (11.5-15.5) % Neutrophils # (Manual) 7.74 H (1.3-7.7) k/uL ABG pH (7.35-7.45) ABG HCO3 (21-25) mmol/L ABG Total CO2 (19-24) mmol/L ABG O2 Saturation (94-97) % ABG Hematocrit (34.0-46.0) % Hemoglobin (13.0-17.5) gm/dL BUN 21 H (9-20) mg/dL Glucose 149 H (74-99) mg/dL POC Glucose (mg/dL) 161 H (70-110) mg/dL Calcium 7.7 L (8.4-10.2) mg/dL Delta Bilirubin 0.6 H (0.0-0.2) mg/dL Total Protein 5.0 L (6.3-8.2) g/dL Albumin 2.6 L (3.5-5.0) g/dL 02/18/22 Range/Units 11:45 RBC (4.30-5.90) m/uL Hgb (13.0-17.5) gm/dL Hct (39.0-53.0) % MCH (25.0-35.0) pg MCHC (31.0-37.0) g/dL RDW (11.5-15.5) % Neutrophils # (Manual) (1.3-7.7) k/uL ABG pH (7.35-7.45) ABG HCO3 (21-25) mmol/L ABG Total CO2 (19-24) mmol/L ABG O2 Saturation (94-97) % ABG Hematocrit (34.0-46.0) % Hemoglobin (13.0-17.5) gm/dL BUN (9-20) mg/dL Glucose (74-99) mg/dL POC Glucose (mg/dL) 159 H (70-110) mg/dL Calcium (8.4-10.2) mg/dL Delta Bilirubin (0.0-0.2) mg/dL Total Protein (6.3-8.2) g/dL Albumin (3.5-5.0) g/dL Microbiology - Last 24 Hours (Table) 02/13/22 07:00 Blood Culture - Preliminary Blood No Growth after 120 hours 02/12/22 16:57 Blood Culture - Preliminary Blood No Growth after 120 hours Assessment and Plan (1) Abdominal wall defect, acquired Current Visit: Yes Status: Acute Code(s): M95.8 - OTH ACQUIRED DEFORMITIES OF MUSCULOSKELETAL SYSTEM SNOMED Code(s): 852679104469513 (2) Pneumonia Current Visit: Yes Status: Acute Code(s): J18.9 - PNEUMONIA, UNSPECIFIED O RGANISM SNOMED Code(s): 775265479 Plan: 1patient presented to hospital with confusion and increasing shortness of breath in this patient with evidence of ascites effusion and 3+ edema feet likely related to fluid overload underlying pneumonia less likely but not entirely excluded. 2patient with a nonhealing lower abdominal wound however there is no evidence of any surrounding redness and CT abdominal pelvis did not mention any abscess. 3abdominal cultures are growing MSSA and anaerobes, the patient sputum is growing Malathi. 4patient condition remains to be stable with no fever or white count is normal, the patient will continue with Unasyn and continue supportive care Time with Patient: Less than 30
[2022-02-18 23:38] LABS: Glucose,Whole Blood 176 mg/dL (70-110)
[2022-02-19] MEDS: NOREPINEPHRINE 32 MG in SODIUM CHLORIDE 0.9% 218 ML IV SCH (00:53)
[2022-02-19] MEDS: AMPICILLIN-SULBACTAM 3 GM in SODIUM CHLORIDE 0.9% 100 ML IVPB SCH ×4 (00:54→17:59)
[2022-02-19] MEDS: INSULIN ASPART (NovoLOG) 100 UNIT/ML VIAL SQ SCH ×4 (00:55→17:59)
[2022-02-19] MEDS: IPRATROPIUM-ALBUTEROL 3 ML NEB INHALATION SCH ×5 (03:11→19:50)
[2022-02-19] MEDS ORDERED: NA PHOS,M-B/NA PHOS,DI-BA 133 ML ENEMA RECTAL STA (04:06)
[2022-02-19] MEDS: HYDROmorphone 1 MG/ML 1 ML SYRINGE IVP PRN (04:29)
[2022-02-19 05:09] LABS: Glucose,Whole Blood 144 mg/dL (70-110)
[2022-02-19 05:42] LABS: African American GFR (CKD) >90 (>60 ml/min/1.73 sqM); Anion Gap 10 mmol/L; Blood Urea Nitrogen 28 mg/dL (9-20); Calcium 7.8 mg/dL (8.4-10.2); Carbon Dioxide 26 mmol/L (22-30); Chloride 103 mmol/L (98-107); Glucose 134 mg/dL (74-99); Non-African American GFR(CKD) 81 (>60 ml/min/1.73 sqM); Sodium 139 mmol/L (137-145)
[2022-02-19 06:08] LABS: Anisocytosis Slight; HCT 27.7 % (39.0-53.0); HGB 7.6 gm/dL (13.0-17.5); Hypochromasia Marked; MCH 22.8 pg (25.0-35.0); MCHC 27.5 g/dL (31.0-37.0); MCV 82.7 fL (80.0-100.0); Mean Platelet Volume 7.4; Platelet Count 288 k/uL (150-450); Poikilocytosis Moderate; RBC 3.35 m/uL (4.30-5.90); RDW 18.3 % (11.5-15.5)
[2022-02-19 06:11] LABS: ABG Base Excess 3.4 mmol/L; ABG HCO3 27 mmol/L (21-25); ABG Oxygen Saturation 99.2 % (94-97); ABG PCO2 39 mmHg (35-45); ABG PH 7.46 (7.35-7.45); ABG PO2 105 mmHg (83-108); ABG TCO2 29 mmol/L (19-24); Allen Test Performed? Yes
[2022-02-19 06:13] LABS: ABG Hematocrit 23 % (34.0-46.0)
--- NOTE | 2022-02-19 07:00 | P.PN ---
Subjective Progress Note Date: 02/19/22 Principal diagnosis: Heart failure with preserved ejection fraction/severe aortic stenosis This is a 76-year-old gentleman with aortic stenosis and chronic kidney disease as well as hypertension and dyslipidemia as well as multiple comorbid conditions was admitted to the hospital with acute on chronic diastolic heart failure and he developed respiratory failure requiring intubation and mechanical ventilation. The patient underwent recently an abdominal surgery and he did dai ve surgical site wound infection secondary to methicillin-resistant staph aureus. The patient was seen this morning. He continues to be intubated on mechanical ventilation. He felt an attempt to wean yesterday. He continues to be unstable and requiring norepinephrine. He has been in sinus rhythm with PACs. Objective - Vital Signs Vital signs: Vital Signs Temp 98.4 F 02/19/22 04:30 Pulse 97 02/19/22 05:00 Resp 21 02/19/22 05:00 BP 96/69 02/19/22 05:00 Pulse Ox 94 L 02/19/22 05:00 FiO2 35 02/19/22 04:30 Intake & Output 02/18/22 02/18/22 02/19/22 06:59 18:59 06:59 Intake Total 1206.044 999.903 902.144 Output Total 495 725 415 Balance 711.044 274.903 487.144 Weight 101 kg 103 kg Intake: IV 479 332 336 0.9 KVO 240 260 200 Ampicillin-Sulbactam 3 gm 200 100 In Sodium Chloride 0.9% 100 ml @ 200 mls/hr IVPB Q6HR [facility] Rx#:[id number] pressure bag 39 72 36 Intake, IV Titration 257.044 247.903 111.144 Amount Norepinephrine 32 mg In 47.903 4.612 Sodium Chloride 0.9% 218 ml @ 0.05 MCG/KG/MIN 2. 344 mls/hr IV .Q24H [facility] Rx#:[id number] propofoL 1,000 mg In 257.044 200.000 106.532 Empty Bag 1 bag @ 5 MCG/ KG/MIN 3.266 mls/hr IV . Q24H [facility] Rx#:[id number] Tube Feeding 330 390 300 Other 140 30 155 Output: Urine 495 725 415 Other: Voiding Method Indwelling Catheter Indwelling Catheter Indwelling Catheter # Bowel Movements 1 ABP, PAP, CO, CI - Last Documented Arterial Blood Pressure 98/50 - Constitutional General appearance: Present: no acute distress - Respiratory Respiratory: bilateral: diminished - Cardiovascular Rhythm: regular Abnormal Heart Sounds: Present: systolic murmur - Labs CBC & Chem 7: 02/19/22 05:08 02/19/22 05:08 Labs: Abnormal Lab Results - Last 24 Hours (Table) 02/18/22 02/18/22 02/18/22 Range/Units 11:45 17:04 23:36 RBC (4.30-5.90) m/uL Hgb (13.0-17.5) gm/dL Hct (39.0-53.0) % MCH (25.0-35.0) pg MCHC (31.0-37.0) g/dL RDW (11.5-15.5) % ABG pH (7.35-7.45) ABG HCO3 (21-25) mmol/L ABG Total CO2 (19-24) mmol/L ABG O2 Saturation (94-97) % ABG Hematocrit (34.0-46.0) % Hemoglobin (13.0-17.5) gm/dL BUN (9-20) mg/dL Glucose (74-99) mg/dL POC Glucose (mg/dL) 159 H 176 H 176 H (70-110) mg/dL Calcium (8.4-10.2) mg/dL 02/19/22 02/19/22 02/19/22 Range/Units 05:07 05:08 05:08 RBC 3.35 L (4.30-5.90) m/uL Hgb 7.6 L (13.0-17.5) gm/dL Hct 27.7 L (39.0-53.0) % MCH 22.8 L (25.0-35.0) pg MCHC 27.5 L (31.0-37.0) g/dL RDW 18.3 H (11.5-15.5) % ABG pH (7.35-7.45) ABG HCO3 (21-25) mmol/L ABG Total CO2 (19-24) mmol/L ABG O2 Saturation (94-97) % ABG Hematocrit (34.0-46.0) % Hemoglobin (13.0-17.5) gm/dL BUN 28 H (9-20) mg/dL Glucose 134 H (74-99) mg/dL POC Glucose (mg/dL) 144 H (70-110) mg/dL Calcium 7.8 L (8.4-10.2) mg/dL 02/19/22 Range/Units 06:10 RBC (4.30-5.90) m/uL Hgb (13.0-17.5) gm/dL Hct (39.0-53.0) % MCH (25.0-35.0) pg MCHC (31.0-37.0) g/dL RDW (11.5-15.5) % ABG pH 7.46 H (7.35-7.45) ABG HCO3 27 H (21-25) mmol/L ABG Total CO2 29 H (19-24) mmol/L ABG O2 Saturation 99.2 H (94-97) % ABG Hematocrit 23 L (34.0-46.0) % Hemoglobin 7.4 L (13.0-17.5) gm/dL BUN (9-20) mg/dL Glucose (74-99) mg/dL POC Glucose (mg/dL) (70-110) mg/dL Calcium (8.4-10.2) mg/dL Microbiology - Last 24 Hours (Table) 02/12/22 16:57 Blood Culture - Final Blood No Growth after 144 hours 02/13/22 07:00 Blood Culture - Preliminary Blood No Growth after 120 hours Assessment and Plan Assessment: Assessment Acute on chronic heart failure with preserved ejection fraction Acute coronary syndrome likely related to hypoxemia/sepsis Acute hypoxic respiratory failure Severe aortic stenosis Cardiac arrhythmia Multiple comorbid conditions Plan Continue monitor the kidney function and electrolytes The right wean the patient from norepinephrine If the patient continues to be hypotensive he might benefit from balloon valvuloplasty of the aortic valve.
--- NOTE | 2022-02-19 07:40 | XR ---
EXAMINATION TYPE: XR chest 1V portable DATE OF EXAM: 02/19/2022 5:52 AM COMPARISON: Chest radiographs from TECHNIQUE: XR chest 1V portable Portable AP radiograph of the chest. CLINICAL INDICATION:Male, 76 years old with history of mechanical ventilation; FINDINGS: Lungs/Pleura: Bilateral layering pleural effusions with no evidence of pneumothorax. Patchy consolida tion changes are also present likely representing atelectasis. Pulmonary vascularity: Pulmonary vascular congestion. Heart/mediastinum: Cardiomediastinal silhouette is unremarkable. Atherosclerotic calcifications are seen in the aorta. Musculoskeletal: No acute osseous pathology. Lines/Tubes: Endotracheal tube with distal tip is thought to be obscured in 7.2 cm above the mima. Nasogastric tube has been retracted and now demonstrates side-port projecting over the distal esophag us. Right central venous catheter with distal tip at the cavoatrial junction. IMPRESSION: 1. Nasogastric tube side-port and distal tip projecting over the distal esophagus consider advanceme nt of 11 cm for optimal placement. 2. Obscured distal endotracheal tube tip consider attention on follow-up imaging. 3. Cardiomegaly with pulmonary vascular congestion and bibasilar layering pleural effusions likely r epresenting congestive heart failure changes.
[2022-02-19] MEDS: HEPARIN SODIUM,PORCINE/PF 5,000 UNIT/0.5 ML SYRINGE SQ SCH ×2 (07:54→21:45)
[2022-02-19] MEDS: COLLAGENASE 250 UNIT/GM OINTMENT 30 GM TUBE TOPICAL SCH (07:54)
[2022-02-19] MEDS: CHLORHEXIDINE GLUCONATE 15 ML CUP MUCOUS MEM SCH ×2 (07:54→21:45)
[2022-02-19] MEDS: PANTOPRAZOLE 40 MG/10 ML VIAL IVP SCH (07:54)
[2022-02-19] MEDS: OXYBUTYNIN CHLORIDE 5 MG TAB PO SCH ×2 (07:54→22:17)
[2022-02-19] MEDS: LACTULOSE 20 GM/30 ML CUP PO SCH ×2 (09:59→22:17)
--- NOTE | 2022-02-19 10:56 | P.PN ---
Subjective Progress Note Date: 02/19/22 Principal diagnosis: Respiratory failure. Reevaluated today on 02/14/22, remains in the ICU, intubated and mechanically ventilated. Patient is on assist control rate of 20, volume 500 FiO2 40% and I cut it down to 35% PEEP of 8 and I cut it down to 5. ABG today showed a pO2 of 184 pCO2 39 pH of 7.48. Patient is requiring norepinephrine at 0.09 mcg/kg/m is on IV fluid 0.9 normal saline at 75 mL per hour and he is on propofol at 40 mcg/kg/m. Receiving vital HPI 30 mL per hour. Patient remains on Zosyn, considering his CVP is only 7 and urine output is marginal I will go ahead and recommended a liter bolus of 0.9 normal saline. We will cut down the propofol and hopefully cut down on the norepinephrine if his blood pressure improves. May improve with fluid bolus and with cutting down the dose of propofol WBC count is 8.5 hemoglobin 7.6 hematocrit is 27.6 basic metabolic profile is normal bicarb is normal BUN is 41 creatinine 1.2, improving since yesterday creatinine was 1.51 a chest x-ray showed pleural parenchymal changes, air bronchogram noted in the left retrocardiac area, highly suspicious for pneumonia. Reevaluated today on 02/15/22, patient remains on the ventilator, his on assist control rate of 20 to light and 500 FiO2 35% PEEP of 5 ABG showed a pO2 of 100 pCO2 38 pH of 7.49. Patient remains on antibiotics in the form of Zosyn he is also on diuretics, the diuretics was increased since the patient continues to have findings suggestive of mild fluid overload and he also has findings suggestive of pneumonia. Chest x-ray is showing cardiomegaly with pulmonary vascular congestion and bilateral pleural effusion and bibasilar airspace disease WBC count is 8.1 hemoglobin is 7.7, basic metabolic profile is normal renal profile is normal, creatinine has been steadily improving since admission, it is 1.01 today. Sputum cultures are negative except for some yeast species and his wound culture is showing presumptive staph aureus, final sensitivities pending. In the meantime the patient is on Zosyn. He did receive vancomycin initially. Reevaluated today on 02/16/22, patient remains in the ICU, intubated and mechanically ventilated. He is on assist control rate of 20- tidal volume of 500 FiO2 35% PEEP of 5. ABG showed a pO2 of 100 pCO2 40 pH of 7.50 patient remains sedated, he is requiring more and norepinephrine overnight, he is on pro pofol at 35 mcg/kg/m, norepinephrine at 0.12 mcg/kg/m patient has not had a bowel movement since admission, lactulose. Today on plan to give the patient fluid boluses 500 mL at a time, and I plan to hold his Lasix. Hoping that fluid boluses will improve his blood pressure and hopefully down on the dose of norepinephrine. Patient remains on vital HPI 38 mL per hour. His antibiotics were transitioned to Unasyn since the patient has mostly staph aureus, MSSA in the wound culture. Yesterday the patient weaned but could not be extubated mostly because of worsening tachycardia and worsening endotracheal secretions. Hence I had to place him back on assist control mode of mechanical ventilation and did not go further to extubate. Labs today demonstrate is 8.6 and global was 8.1 lites are normal, renal profile is normal. Sputum cultures are negative blood cultures are - abdominal wound cultures are positive for MSSA. Progress note dated 02/17/2022. This is a 76-year-old male who was admitted on February 12, for her hypercapnic respiratory failure, CO2 narcosis, and CHF. The patient was intubated on February 13. He remains on the mechanical ventilator. The patient is on volume assist control, rate 20, tidal volume 500, FiO2 35%, and PEEP of 5. Blood gases show pO2 78, pCO2 40, and a pH is 7.47. The patient remains on propofol, at 40 mcg/kg/m, norepinephrine at 8 mcg/m, saline at 20 mL an hour, and vital high protein at 30 mL an hour, which is goal. The patient remains on Unasyn. White count 7.8, hemoglobin 7.7, hematocrit 27.6, and platelet count 282,000. Sodium 139, potassium 3.8, chlorides 104, CO2 26, BUN 20, and creatinine 0.83. Abdominal wound cultures are showing Staphylococcus aureus, and anaerobic gram- negative bacilli. Chest x-ray shows pulmonary vascular congestion, small to moderate bilateral pleural effusions, and cardiomegaly. Progress note dated 02/18/2022. 76-year-old male admitted on February 12, for hypercapnic respiratory failure, CO2 narcosis, and CHF. The patient was intubated the following day, on February 13. He remains on the mechanical ventilator. The patient is on volume assist control, rate 20, tidal volume 500, FiO2 85%, PEEP of 5. Blood gases show a PaO2 of 85, pCO2 41, and a pH is 7.46. The patient failed his daily interruption of sedation yesterday. We will attempted again today. Currently, norepinephrine is off, and propofol is off. He is getting saline at 20 mL an hour, and vital high protein at 30 mL an hour, which is goal. White count 9.8, hemoglobin 8, hematocrit 28.8, and platelet count 332,000. Sodium, potassium, chloride, CO2, anion gap, are all normal. BUN is 21, with a creatinine of 0.81. Albumin is 2.6. Chest x-ray shows diffuse airspace disease, and small effusions, consistent with CHF. Progress note dated 02/19/2022. 76-year-old male admitted on February 12 for hypercapnic respiratory failure and CHF. The patient has been having daily interruption of sedation and spontaneous breathing trials. We did not think he was ready yesterday. He currently remains on the ventilator. He is on the volume assist control, rate 20, tidal volume 500, FiO2 35%, and PEEP of 5. Blood gases show pO2 105, he CO2 39, and pH is 7.46. The patient's on propofol at 30 mcg/kg/m, norepinephrine at 5 mcg/m, saline at 10 mL an hour, and vital high protein at 30 mL an hour, which is goal. We will again attempt a DIS/SBT, today, on both pressure support and CPAP. White count 8.2, hemoglobin 7.6, hematocrit 27.7, and platelet count 288,000. Sodium 139, potassium 4, chlorides 103, CO2 26, BUN 28, and creatinine 0.91. The patient's chest x-ray suggests that the endotracheal tube should be pushed down about a centimeter or 2. In addition, the x-ray is consistent with either infiltrate and/or fluid overload. Objective - Vital Signs Vital signs: Vital Signs Temp 98.6 F 02/19/22 08:00 Pulse 103 H 02/19/22 10:00 Resp 21 02/19/22 10:00 BP 111/60 02/19/22 10:00 Pulse Ox 97 02/19/22 10:00 FiO2 35 02/19/22 10:48 Intake & Output 02/18/22 02/19/22 02/19/22 18:59 06:59 18:59 Intake Total 999.903 958.144 226.769 Output Total 725 445 260 Balance 274.903 513.144 -33.231 Weight 103 kg Intake: IV 332 362 101 0.9 KVO 260 220 80 Ampicillin-Sulbactam 3 gm 100 In Sodium Chloride 0.9% 100 ml @ 200 mls/hr IVPB Q6HR [facility] Rx#:[id number] pressure bag 72 42 21 Intake, IV Titration 247.903 111.144 65.769 Amount Norepinephrine 32 mg In 47.903 4.612 11.229 Sodium Chloride 0.9% 218 ml @ 0.05 MCG/KG/MIN 2. 344 mls/hr IV .Q24H [facility] Rx#:[id number] propofoL 1,000 mg In 200.000 106.532 54.540 Empty Bag 1 bag @ 5 MCG/ KG/MIN 3.266 mls/hr IV . Q24H [facility] Rx#:[id number] Tube Feeding 390 330 60 Other 30 155 Output: Urine 725 445 260 Other: Voiding Method Indwelling Catheter Indwelling Catheter Indwelling Catheter # Bowel Movements 1 ABP, PAP, CO, CI - Last Documented Arterial Blood Pressure 174/159 - Exam No acute distress, sedated, with an orally placed endotracheal tube. HEENT examination is grossly unremarkable. Neck supple. Full range of motion. No adenopathy thyromegaly or neck vein distention. Cardiovascular examination reveals regular rhythm rate. S1-S2 normal. No S3 or S4. A systolic murmur is noted. Heart sounds are distant. Heart rate 119 bpm. Lungs reveal scattered bilateral rhonchi. No wheezes. No crackles. Breath sounds equal bilaterally. Saturations are 97 %. Abdomen soft bowel sounds are heard. No masses or tenderness. Extremities are intact. No cyanosis clubbing or edema. Skin is without rash or lesion. Neurologic examination cannot be evaluated. - Labs CBC & Chem 7: 02/19/22 05:08 02/19/22 05:08 Labs: Abnormal Lab Results - Last 24 Hours (Table) 02/18/22 02/18/22 02/18/22 Range/Units 11:45 17:04 23:36 RBC (4.30-5.90) m/uL Hgb (13.0-17.5) gm/dL Hct (39.0-53.0) % MCH (25.0-35.0) pg MCHC (31.0-37.0) g/dL RDW (11.5-15.5) % ABG pH (7.35-7.45) ABG HCO3 (21-25) mmol/L ABG Total CO2 (19-24) mmol/L ABG O2 Saturation (94-97) % ABG Hematocrit (34.0-46.0) % Hemoglobin (13.0-17.5) gm/dL BUN (9-20) mg/dL Glucose (74-99) mg/dL POC Glucose (mg/dL) 159 H 176 H 176 H (70-110) mg/dL Calcium (8.4-10.2) mg/dL 02/19/22 02/19/22 02/19/22 Range/Units 05:07 05:08 05:08 RBC 3.35 L (4.30-5.90) m/uL Hgb 7.6 L (13.0-17.5) gm/dL Hct 27.7 L (39.0-53.0) % MCH 22.8 L (25.0-35.0) pg MCHC 27.5 L (31.0-37.0) g/dL RDW 18.3 H (11.5-15.5) % ABG pH (7.35-7.45) ABG HCO3 (21-25) mmol/L ABG Total CO2 (19-24) mmol/L ABG O2 Saturation (94-97) % ABG Hematocrit (34.0-46.0) % Hemoglobin (13.0-17.5) gm/dL BUN 28 H (9-20) mg/dL Glucose 134 H (74-99) mg/dL POC Glucose (mg/dL) 144 H (70-110) mg/dL Calcium 7.8 L (8.4-10.2) mg/dL 02/19/22 Range/Units 06:10 RBC (4.30-5.90) m/uL Hgb (13.0-17.5) gm/dL Hct (39.0-53.0) % MCH (25.0-35.0) pg MCHC (31.0-37.0) g/dL RDW (11.5-15.5) % ABG pH 7.46 H (7.35-7.45) ABG HCO3 27 H (21-25) mmol/L ABG Total CO2 29 H (19-24) mmol/L ABG O2 Saturation 99.2 H (94-97) % ABG Hematocrit 23 L (34.0-46.0) % Hemoglobin 7.4 L (13.0-17.5) gm/dL BUN (9-20) mg/dL Glucose (74-99) mg/dL POC Glucose (mg/dL) (70-110) mg/dL Calcium (8.4-10.2) mg/dL Microbiology - Last 24 Hours (Table) 02/13/22 07:00 Blood Culture - Final Blood No Growth after 144 hours 02/12/22 16:57 Blood Culture - Final Blood No Growth after 144 hours Assessment and Plan Assessment: Acute hypoxemic and hypercapnic respiratory failure, requiring intubation and me chanical ventilation on February 13, 2022. Probable sepsis/septic shock. Healthcare acquired pneumonia. Surgical site wound infection, secondary to methicillin sensitive Staphylococcus aureus. Acute kidney injury. Severe aortic stenosis. Chronic diastolic CHF. Type 2 diabetes mellitus. Chronic anemia. Benign essential hypertension. Chronic polycythemia. History of bowel resection, December 2021. Plan: Plan dated 02/17/2022. The patient will have a daily interruption of sedation. He may or may not be ready for a spontaneous breathing trial. Labs, x-rays, and medications are reviewed. He currently remains on propofol at 40 mcg/kg/m, and a modest dose of norepinephrine at 8 mcg/m. He is receiving tube feedings. He remains on Unasyn. We will continue to follow make recommendations along the way. Prognosis is certainly guarded. We do continue GI and DVT prophylaxis. Plan dated 02/18/2022. The patient will be given another daily interruption of sedation today. Hopefully, he'll do better than he did yesterday. Currently, norepinephrine has been weaned off. Remains on tube feedings. Blood gases are consistent with a mild metabolic alkalosis. Labs, x-rays, and medications are reviewed. Prognosis is certainly guarded. We will continue to follow the patient and make recommendations along the way. We continue GI and DVT prophylaxis. Plan dated 02/19/2022. The patient is again seen today in room 262. Labs, x-rays, and medications are reviewed. The patient remains on propofol at 30 mcg/kg/m, and norepinephrine at 5 mcg/m. We will attempt another daily interruption of sedation and spontaneously breathing trial. We are hoping that he is ready for extubation. This will depend on his mental status, his weaning parameters, and his cuff leak. We will continue to follow and make recommendations along the way. Time with Patient: Greater than 30
[2022-02-19 11:22] LABS: Glucose,Whole Blood 173 mg/dL (70-110)
[2022-02-19 12:27] LABS: Band Neutrophils % 1 %; Eosinophils # (M) 0.08 k/uL (0-0.7); Lymphocytes # (M) 0.65 k/uL (1.0-4.8); Monocytes # (M) 0.65 k/uL (0-1.0); Myelocytes # (M) 0.08 k/uL (0); Myelocytes % 1 %; Neutrophils % (M) 83 %; Nucleated Red Blood Cells 1 /100 WBC (0-0); Total Cells Counted 200; WBC 8.1 k/uL (3.8-10.6)
--- NOTE | 2022-02-19 13:46 | P.PN ---
Subjective Progress Note Date: 02/19/22 CHIEF COMPLAINT: Respiratory failure HISTORY OF PRESENT ILLNESS: Patient remains intubated and on mechanical intubation in the ICU. Patient undergoing another weaning trial from the vent today. He was given a Fleet enema at 3:00 this morning with positive results. Patient had a large bowel movement. He did have a low-grade temp of 100. Tachycardic heart rate 121. WBC is 8.1 hemoglobin 7.6 platelets 288. Patient is able to follow some simple commands. He denies any pain. Patient being treated for pneumonia and CHF. Patient seen and examined with Dr. Tran PHYSICAL EXAM: VITAL SIGNS: Reviewed. GENERAL: Intubated ABDOMEN: Soft. Obese. Distended. Clearish drainage from abdominal incision wounds. Healthy granulation tissue noted ASSESSMENT: 1. Abdominal wound. Per Dr. tran the MSSA growing in the abdominal wound is likely colonization 2. 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 History of surgical site infection during last hospitalization 4. Constipation PLAN: -Continue local wound care -Continue antibiotics -No surgical intervention planned -Continue ICU management and supportive care -Continue tube feed for nutrition support -Continue lactulose for constipation Physician Health Care Assistant note has been reviewed by physician. Signing provider agrees with the documented findings, assessment, and plan of care. Objective - Vital Signs Vital signs: Vital Signs Temp 99.0 F 02/19/22 12:00 Pulse 121 H 02/19/22 13:00 Resp 24 02/19/22 13:00 BP 118/65 02/19/22 13:00 Pulse Ox 97 02/19/22 13:00 FiO2 50 02/19/22 13:00 Intake & Output 02/18/22 02/19/22 02/19/22 18:59 06:59 18:59 Intake Total 999.903 958.144 409.879 Output Total 725 445 395 Balance 274.903 513.144 14.879 Weight 103 kg Intake: IV 332 362 279 0.9 KVO 260 220 140 Ampicillin-Sulbactam 3 gm 100 100 In Sodium Chloride 0.9% 100 ml @ 200 mls/hr IVPB Q6HR [facility] Rx#:[id number] pressure bag 72 42 39 Intake, IV Titration 247.903 111.144 70.879 Amount Norepinephrine 32 mg In 47.903 4.612 16.339 Sodium Chloride 0.9% 218 ml @ 0.05 MCG/KG/MIN 2. 344 mls/hr IV .Q24H [facility] Rx#:[id number] propofoL 1,000 mg In 200.000 106.532 54.540 Empty Bag 1 bag @ 5 MCG/ KG/MIN 3.266 mls/hr IV . Q24H [facility] Rx#:[id number] Tube Feeding 390 330 60 Other 30 155 Output: Urine 725 445 395 Other: Voiding Method Indwelling Catheter Indwelling Catheter Indwelling Catheter # Bowel Movements 1 ABP, PAP, CO, CI - Last Documented Arterial Blood Pressure 174/159 - Labs CBC & Chem 7: 02/19/22 05:08 02/19/22 05:08 Labs: Abnormal Lab Results - Last 24 Hours (Table) 02/18/22 02/18/22 02/19/22 Range/Units 17:04 23:36 05:07 RBC (4.30-5.90) m/uL Hgb (13.0-17.5) gm/dL Hct (39.0-53.0) % MCH (25.0-35.0) pg MCHC (31.0-37.0) g/dL RDW (11.5-15.5) % Lymphocytes # (Manual) (1.0-4.8) k/uL Myelocytes # (Manual) (0) k/uL Nucleated RBCs (0-0) /100 WBC ABG pH (7.35-7.45) ABG HCO3 (21-25) mmol/L ABG Total CO2 (19-24) mmol/L ABG O2 Saturation (94-97) % ABG Hematocrit (34.0-46.0) % Hemoglobin (13.0-17.5) gm/dL BUN (9-20) mg/dL Glucose (74-99) mg/dL POC Glucose (mg/dL) 176 H 176 H 144 H (70-110) mg/dL Calcium (8.4-10.2) mg/dL 02/19/22 02/19/22 02/19/22 Range/Units 05:08 05:08 06:10 RBC 3.35 L (4.30-5.90) m/uL Hgb 7.6 L (13.0-17.5) gm/dL Hct 27.7 L (39.0-53.0) % MCH 22.8 L (25.0-35.0) pg MCHC 27.5 L (31.0-37.0) g/dL RDW 18.3 H (11.5-15.5) % Lymphocytes # (Manual) 0.65 L (1.0-4.8) k/uL Myelocytes # (Manual) 0.08 H (0) k/uL Nucleated RBCs 1 H (0-0) /100 WBC ABG pH 7.46 H (7.35-7.45) ABG HCO3 27 H (21-25) mmol/L ABG Total CO2 29 H (19-24) mmol/L ABG O2 Saturation 99.2 H (94-97) % ABG Hematocrit 23 L (34.0-46.0) % Hemoglobin 7.4 L (13.0-17.5) gm/dL BUN 28 H (9-20) mg/dL Glucose 134 H (74-99) mg/dL POC Glucose (mg/dL) (70-110) mg/dL Calcium 7.8 L (8.4-10.2) mg/dL 02/19/22 Range/Units 11:20 RBC (4.30-5.90) m/uL Hgb (13.0-17.5) gm/dL Hct (39.0-53.0) % MCH (25.0-35.0) pg MCHC (31.0-37.0) g/dL RDW (11.5-15.5) % Lymphocytes # (Manual) (1.0-4.8) k/uL Myelocytes # (Manual) (0) k/uL Nucleated RBCs (0-0) /100 WBC ABG pH (7.35-7.45) ABG HCO3 (21-25) mmol/L ABG Total CO2 (19-24) mmol/L ABG O2 Saturation (94-97) % ABG Hematocrit (34.0-46.0) % Hemoglobin (13.0-17.5) gm/dL BUN (9-20) mg/dL Glucose (74-99) mg/dL POC Glucose (mg/dL) 173 H (70-110) mg/dL Calcium (8.4-10.2) mg/dL Microbiology - Last 24 Hours (Table) 02/13/22 07:00 Blood Culture - Final Blood No Growth after 144 hours 02/12/22 16:57 Blood Culture - Final Blood No Growth after 144 hours
--- NOTE | 2022-02-19 14:29 | P.PN ---
Subjective Progress Note Date: 02/19/22 Patient was seen and examined. Patient extubated. Currently on levophed at 5 mics/m. General: Patient appears to be in no acute distress Derm: warm, dry Head: atraumatic, normocephalic, symmetric Eyes: EOMI, no lid lag, anicteric sclera Mouth: no lip lesion, mucus membranes moist Cardiovascular: Tachycardic, systolic ejection murmur Lungs: Decreased breath sounds bilaterally, ventilator dependent Abdominal: soft, abdominal dressing c/d/i Ext: no gross muscle atrophy, no edema, no contractures Neuro: No focal deficits Psych: Alert and oriented Assessment/plan: Acute Hypoxemic and Hypercarbic Respiratory Failure Septic Shock with Toxic/Metabolic Encephalopathy Community Acquired Pneumonia Surgical Site Infection s/p Bowel Resection Acute Kidney Injury - Extubated 02/19 - Admit to ICU, telemetry - ICU, ID consultation appreciated - Wound Care consult - Surgery consult - Bronchodilators - Unasyn - f/u BCx - NGTD, Wound Cx - staph aureus - IVF - Attempt to wean levophed - Monitor I/Os, UOP - Daily labs Severe Aortic Stenosis Chronic Diastolic Heart Failure - Strict I/Os, daily weights - Cardiology on board - Echocardiogram shows EF of 45% with moderate concentric LVH, severe calcification of the mitral valve, severe aortic stenosis Normocytic anemia -Stable DM - Insulin sliding scale SC Q6H FULL CODE DVT PPX heparin SC BID Objective - Vital Signs Vital signs: Vital Signs Temp 99.0 F 02/19/22 12:00 Pulse 121 H 02/19/22 13:00 Resp 24 02/19/22 13:00 BP 118/65 02/19/22 13:00 Pulse Ox 97 02/19/22 13:00 FiO2 50 02/19/22 13:00 Intake & Output 02/18/22 02/19/22 02/19/22 18:59 06:59 18:59 Intake Total 999.903 958.144 409.879 Output Total 725 445 395 Balance 274.903 513.144 14.879 Weight 103 kg Intake: IV 332 362 279 0.9 KVO 260 220 140 Ampicillin-Sulbactam 3 gm 100 100 In Sodium Chloride 0.9% 100 ml @ 200 mls/hr IVPB Q6HR [facility] Rx#:[id number] pressure bag 72 42 39 Intake, IV Titration 247.903 111.144 70.879 Amount Norepinephrine 32 mg In 47.903 4.612 16.339 Sodium Chloride 0.9% 218 ml @ 0.05 MCG/KG/MIN 2. 344 mls/hr IV .Q24H [facility] Rx#:[id number] propofoL 1,000 mg In 200.000 106.532 54.540 Empty Bag 1 bag @ 5 MCG/ KG/MIN 3.266 mls/hr IV . Q24H [facility] Rx#:[id number] Tube Feeding 390 330 60 Other 30 155 Output: Urine 725 445 395 Other: Voiding Method Indwelling Catheter Indwelling Catheter Indwelling Catheter # Bowel Movements 1 ABP, PAP, CO, CI - Last Documented Arterial Blood Pressure 174/159 - Labs CBC & Chem 7: 02/19/22 05:08 02/19/22 05:08 Labs: Abnormal Lab Results - Last 24 Hours (Table) 02/18/22 02/18/22 02/19/22 Range/Units 17:04 23:36 05:07 RBC (4.30-5.90) m/uL Hgb (13.0-17.5) gm/dL Hct (39.0-53.0) % MCH (25.0-35.0) pg MCHC (31.0-37.0) g/dL RDW (11.5-15.5) % Lymphocytes # (Manual) (1.0-4.8) k/uL Myelocytes # (Manual) (0) k/uL Nucleated RBCs (0-0) /100 WBC ABG pH (7.35-7.45) ABG HCO3 (21-25) mmol/L ABG Total CO2 (19-24) mmol/L ABG O2 Saturation (94-97) % ABG Hematocrit (34.0-46.0) % Hemoglobin (13.0-17.5) gm/dL BUN (9-20) mg/dL Glucose (74-99) mg/dL POC Glucose (mg/dL) 176 H 176 H 144 H (70-110) mg/dL Calcium (8.4-10.2) mg/dL 02/19/22 02/19/22 02/19/22 Range/Units 05:08 05:08 06:10 RBC 3.35 L (4.30-5.90) m/uL Hgb 7.6 L (13.0-17.5) gm/dL Hct 27.7 L (39.0-53.0) % MCH 22.8 L (25.0-35.0) pg MCHC 27.5 L (31.0-37.0) g/dL RDW 18.3 H (11.5-15.5) % Lymphocytes # (Manual) 0.65 L (1.0-4.8) k/uL Myelocytes # (Manual) 0.08 H (0) k/uL Nucleated RBCs 1 H (0-0) /100 WBC ABG pH 7.46 H (7.35-7.45) ABG HCO3 27 H (21-25) mmol/L ABG Total CO2 29 H (19-24) mmol/L ABG O2 Saturation 99.2 H (94-97) % ABG Hematocrit 23 L (34.0-46.0) % Hemoglobin 7.4 L (13.0-17.5) gm/dL BUN 28 H (9-20) mg/dL Glucose 134 H (74-99) mg/dL POC Glucose (mg/dL) (70-110) mg/dL Calcium 7.8 L (8.4-10.2) mg/dL 02/19/22 Range/Units 11:20 RBC (4.30-5.90) m/uL Hgb (13.0-17.5) gm/dL Hct (39.0-53.0) % MCH (25.0-35.0) pg MCHC (31.0-37.0) g/dL RDW (11.5-15.5) % Lymphocytes # (Manual) (1.0-4.8) k/uL Myelocytes # (Manual) (0) k/uL Nucleated RBCs (0-0) /100 WBC ABG pH (7.35-7.45) ABG HCO3 (21-25) mmol/L ABG Total CO2 (19-24) mmol/L ABG O2 Saturation (94-97) % ABG Hematocrit (34.0-46.0) % Hemoglobin (13.0-17.5) gm/dL BUN (9-20) mg/dL Glucose (74-99) mg/dL POC Glucose (mg/dL) 173 H (70-110) mg/dL Calcium (8.4-10.2) mg/dL Microbiology - Last 24 Hours (Table) 02/13/22 07:00 Blood Culture - Final Blood No Growth after 144 hours 02/12/22 16:57 Blood Culture - Final Blood No Growth after 144 hours
[2022-02-19 17:33] LABS: Glucose,Whole Blood 162 mg/dL (70-110)
[2022-02-19] MEDS: ASPIRIN 81 MG PO SCH (22:16)
--- NOTE | 2022-02-19 23:28 | XR ---
EXAM: XR Chest, 1 View CLINICAL HISTORY: ITS.REASON XR Reason: possible aspiration TECHNIQUE: Frontal view of the chest. COMPARISON: Comparison made to prior chest x-ray from February 19, 2022. FINDINGS: There is right subclavian approach central venous catheter in place with its distal tip in the right atrium. Lungs: Bilateral lower lobe patchy opacities. There is pulmonary edema. Pleural space: Blunting of the costophrenic angles. No pneumothorax. Heart: Cardiomegaly. Mediastinum: Unremarkable. Bones/joints: Unremarkable. IMPRESSION: Findings concerning for bilateral lower lobe infiltrates. Possible left lower lobe pleural effusion.
[2022-02-20] MEDS: IPRATROPIUM-ALBUTEROL 3 ML NEB INHALATION SCH ×7 (00:11→23:20)
[2022-02-20 00:21] LABS: Glucose,Whole Blood 141 mg/dL (70-110)
[2022-02-20] MEDS: AMPICILLIN-SULBACTAM 3 GM in SODIUM CHLORIDE 0.9% 100 ML IVPB SCH ×4 (00:40→17:29)
[2022-02-20] MEDS: INSULIN ASPART (NovoLOG) 100 UNIT/ML VIAL SQ SCH ×4 (00:41→17:37)
[2022-02-20] MEDS: NOREPINEPHRINE 32 MG in SODIUM CHLORIDE 0.9% 218 ML IV SCH (00:41)
[2022-02-20] MEDS: HYDROmorphone 1 MG/ML 1 ML SYRINGE IVP PRN (02:50)
[2022-02-20 05:19] LABS: Anisocytosis Slight; HCT 31.6 % (39.0-53.0); HGB 8.2 gm/dL (13.0-17.5); Hypochromasia Marked; MCHC 25.9 g/dL (31.0-37.0); MCV 85.2 fL (80.0-100.0); Mean Platelet Volume 7.5; Platelet Count 362 k/uL (150-450); Poikilocytosis Slight; RBC 3.71 m/uL (4.30-5.90); WBC 11.8 k/uL (3.8-10.6)
[2022-02-20 05:30] LABS: Calcium 8.4 mg/dL (8.4-10.2); Potassium 4.5 mmol/L (3.5-5.1)
[2022-02-20 05:56] LABS: Glucose,Whole Blood 143 mg/dL (70-110)
[2022-02-20 06:53] LABS: Glucose,Whole Blood 142 mg/dL (70-110)
--- NOTE | 2022-02-20 07:15 | P.PN ---
Subjective Progress Note Date: 02/20/22 Principal diagnosis: Heart failure with preserved ejection fraction/severe aortic stenosis This is a 76-year-old gentleman with aortic stenosis and chronic kidney disease as well as hypertension and dyslipidemia as well as multiple comorbid conditions was admitted to the hospital with acute on chronic diastolic heart failure and he developed respiratory failure requiring intubation and mechanical ventilation. The patient underwent recently an abdominal surgery and he did dai ve surgical site wound infection secondary to methicillin-resistant staph aureus. The patient was seen this morning. He continues to be intubated on mechanical ventilation. He felt an attempt to wean yesterday. He continues to be unstable and requiring norepinephrine. He has been in sinus rhythm with PACs. February 202021 The patient was seen this morning he was extubated yesterday. He remains tachypneic and slightly tachycardic and he is in mild respiratory distress. Otherwise he's off norepinephrine and he seems hemodynamically stable. He is in normal sinus mechanism was mild sinus tachycardia probably related to the agitation in mild respiratory distress. From a cardiac standpoint of view, we'll continue the current medical regimen. Continue following up with the patient Objective - Vital Signs Vital signs: Vital Signs Temp 98.9 F 02/20/22 04:00 Pulse 114 H 02/20/22 06:00 Resp 26 H 02/20/22 06:00 BP 102/73 02/20/22 06:00 Pulse Ox 98 02/20/22 06:00 FiO2 50 02/20/22 04:00 Intake & Output 02/19/22 02/20/22 02/20/22 18:59 06:59 18:59 Intake Total 665.879 328 Output Total 595 425 Balance 70.879 -97 Weight 103 kg 108.5 kg Intake: IV 435 328 0.9 KVO 260 210 Ampicillin-Sulbactam 3 gm 100 100 In Sodium Chloride 0.9% 100 ml @ 200 mls/hr IVPB Q6HR BRAD Rx#:[id number] pressure bag 75 18 Intake, IV Titration 170.879 Amount Ampicillin-Sulbactam 3 gm 100 In Sodium Chloride 0.9% 100 ml @ 200 mls/hr IVPB Q6HR BRAD Rx#:[id number] Norepinephrine 32 mg In 16.339 Sodium Chloride 0.9% 218 ml @ 0.05 MCG/KG/MIN 2. 344 mls/hr IV .Q24H BRAD Rx#:[id number] propofoL 1,000 mg In 54.540 Empty Bag 1 bag @ 5 MCG/ KG/MIN 3.266 mls/hr IV . Q24H BRAD Rx#:[id number] Tube Feeding 60 Output: Urine 595 425 Other: Voiding Method Indwelling Catheter Indwelling Catheter ABP, PAP, CO, CI - Last Documented Arterial Blood Pressure 106/57 - Constitutional General appearance: Present: no acute distress - Respiratory Respiratory: bilateral: diminished - Cardiovascular Rhythm: regular Heart sounds: normal: S1, S2 - Labs CBC & Chem 7: 02/20/22 04:54 02/20/22 04:54 Labs: Abnormal Lab Results - Last 24 Hours (Table) 02/19/22 02/19/22 02/19/22 Range/Units 05:08 11:20 17:31 WBC (3.8-10.6) k/uL RBC (4.30-5.90) m/uL Hgb (13.0-17.5) gm/dL Hct (39.0-53.0) % MCH (25.0-35.0) pg MCHC (31.0-37.0) g/dL RDW (11.5-15.5) % Lymphocytes # (Manual) 0.65 L (1.0-4.8) k/uL Myelocytes # (Manual) 0.08 H (0) k/uL Nucleated RBCs 1 H (0-0) /100 WBC BUN (9-20) mg/dL Glucose (74-99) mg/dL POC Glucose (mg/dL) 173 H 162 H (70-110) mg/dL 02/20/22 02/20/22 02/20/22 Range/Units 00:20 04:54 04:54 WBC 11.8 H (3.8-10.6) k/uL RBC 3.71 L (4.30-5.90) m/uL Hgb 8.2 L (13.0-17.5) gm/dL Hct 31.6 L (39.0-53.0) % MCH 22.0 L (25.0-35.0) pg MCHC 25.9 L (31.0-37.0) g/dL RDW 18.0 H (11.5-15.5) % Lymphocytes # (Manual) (1.0-4.8) k/uL Myelocytes # (Manual) (0) k/uL Nucleated RBCs (0-0) /100 WBC BUN 35 H (9-20) mg/dL Glucose 139 H (74-99) mg/dL POC Glucose (mg/dL) 141 H (70-110) mg/dL 02/20/22 02/20/22 Range/Units 05:55 06:51 WBC (3.8-10.6) k/uL RBC (4.30-5.90) m/uL Hgb (13.0-17.5) gm/dL Hct (39.0-53.0) % MCH (25.0-35.0) pg MCHC (31.0-37.0) g/dL RDW (11.5-15.5) % Lymphocytes # (Manual) (1.0-4.8) k/uL Myelocytes # (Manual) (0) k/uL Nucleated RBCs (0-0) /100 WBC BUN (9-20) mg/dL Glucose (74-99) mg/dL POC Glucose (mg/dL) 143 H 142 H (70-110) mg/dL Microbiology - Last 24 Hours (Table) 02/13/22 07:00 Blood Culture - Final Blood No Growth after 144 hours Assessment and Plan Assessment: Assessment Acute on chronic heart failure with preserved ejection fraction Acute coronary syndrome likely related to hypoxemia/sepsis Acute hypoxic respiratory failure Severe aortic stenosis Cardiac arrhythmia Multiple comorbid conditions Plan The patient was extubated yesterday He is off norepinephrine Continue the current medical regimen Follow-up with the patient
--- NOTE | 2022-02-20 07:42 | P.PN ---
Subjective Progress Note Date: 02/20/22 Principal diagnosis: Respiratory failure. Reevaluated today on 02/14/22, remains in the ICU, intubated and mechanically ventilated. Patient is on assist control rate of 20, volume 500 FiO2 40% and I cut it down to 35% PEEP of 8 and I cut it down to 5. ABG today showed a pO2 of 184 pCO2 39 pH of 7.48. Patient is requiring norepinephrine at 0.09 mcg/kg/m is on IV fluid 0.9 normal saline at 75 mL per hour and he is on propofol at 40 mcg/kg/m. Receiving vital HPI 30 mL per hour. Patient remains on Zosyn, considering his CVP is only 7 and urine output is marginal I will go ahead and recommended a liter bolus of 0.9 normal saline. We will cut down the propofol and hopefully cut down on the norepinephrine if his blood pressure improves. May improve with fluid bolus and with cutting down the dose of propofol WBC count is 8.5 hemoglobin 7.6 hematocrit is 27.6 basic metabolic profile is normal bicarb is normal BUN is 41 creatinine 1.2, improving since yesterday creatinine was 1.51 a chest x-ray showed pleural parenchymal changes, air bronchogram noted in the left retrocardiac area, highly suspicious for pneumonia. Reevaluated today on 02/15/22, patient remains on the ventilator, his on assist control rate of 20 to light and 500 FiO2 35% PEEP of 5 ABG showed a pO2 of 100 pCO2 38 pH of 7.49. Patient remains on antibiotics in the form of Zosyn he is also on diuretics, the diuretics was increased since the patient continues to have findings suggestive of mild fluid overload and he also has findings suggestive of pneumonia. Chest x-ray is showing cardiomegaly with pulmonary vascular congestion and bilateral pleural effusion and bibasilar airspace disease WBC count is 8.1 hemoglobin is 7.7, basic metabolic profile is normal renal profile is normal, creatinine has been steadily improving since admission, it is 1.01 today. Sputum cultures are negative except for some yeast species and his wound culture is showing presumptive staph aureus, final sensitivities pending. In the meantime the patient is on Zosyn. He did receive vancomycin initially. Reevaluated today on 02/16/22, patient remains in the ICU, intubated and mechanically ventilated. He is on assist control rate of 20- tidal volume of 500 FiO2 35% PEEP of 5. ABG showed a pO2 of 100 pCO2 40 pH of 7.50 patient remains sedated, he is requiring more and norepinephrine overnight, he is on pro pofol at 35 mcg/kg/m, norepinephrine at 0.12 mcg/kg/m patient has not had a bowel movement since admission, lactulose. Today on plan to give the patient fluid boluses 500 mL at a time, and I plan to hold his Lasix. Hoping that fluid boluses will improve his blood pressure and hopefully down on the dose of norepinephrine. Patient remains on vital HPI 38 mL per hour. His antibiotics were transitioned to Unasyn since the patient has mostly staph aureus, MSSA in the wound culture. Yesterday the patient weaned but could not be extubated mostly because of worsening tachycardia and worsening endotracheal secretions. Hence I had to place him back on assist control mode of mechanical ventilation and did not go further to extubate. Labs today demonstrate is 8.6 and global was 8.1 lites are normal, renal profile is normal. Sputum cultures are negative blood cultures are - abdominal wound cultures are positive for MSSA. Progress note dated 02/17/2022. This is a 76-year-old male who was admitted on February 12, for her hypercapnic respiratory failure, CO2 narcosis, and CHF. The patient was intubated on February 13. He remains on the mechanical ventilator. The patient is on volume assist control, rate 20, tidal volume 500, FiO2 35%, and PEEP of 5. Blood gases show pO2 78, pCO2 40, and a pH is 7.47. The patient remains on propofol, at 40 mcg/kg/m, norepinephrine at 8 mcg/m, saline at 20 mL an hour, and vital high protein at 30 mL an hour, which is goal. The patient remains on Unasyn. White count 7.8, hemoglobin 7.7, hematocrit 27.6, and platelet count 282,000. Sodium 139, potassium 3.8, chlorides 104, CO2 26, BUN 20, and creatinine 0.83. Abdominal wound cultures are showing Staphylococcus aureus, and anaerobic gram- negative bacilli. Chest x-ray shows pulmonary vascular congestion, small to moderate bilateral pleural effusions, and cardiomegaly. Progress note dated 02/18/2022. 76-year-old male admitted on February 12, for hypercapnic respiratory failure, CO2 narcosis, and CHF. The patient was intubated the following day, on February 13. He remains on the mechanical ventilator. The patient is on volume assist control, rate 20, tidal volume 500, FiO2 85%, PEEP of 5. Blood gases show a PaO2 of 85, pCO2 41, and a pH is 7.46. The patient failed his daily interruption of sedation yesterday. We will attempted again today. Currently, norepinephrine is off, and propofol is off. He is getting saline at 20 mL an hour, and vital high protein at 30 mL an hour, which is goal. White count 9.8, hemoglobin 8, hematocrit 28.8, and platelet count 332,000. Sodium, potassium, chloride, CO2, anion gap, are all normal. BUN is 21, with a creatinine of 0.81. Albumin is 2.6. Chest x-ray shows diffuse airspace disease, and small effusions, consistent with CHF. Progress note dated 02/19/2022. 76-year-old male admitted on February 12 for hypercapnic respiratory failure and CHF. The patient has been having daily interruption of sedation and spontaneous breathing trials. We did not think he was ready yesterday. He currently remains on the ventilator. He is on the volume assist control, rate 20, tidal volume 500, FiO2 35%, and PEEP of 5. Blood gases show pO2 105, he CO2 39, and pH is 7.46. The patient's on propofol at 30 mcg/kg/m, norepinephrine at 5 mcg/m, saline at 10 mL an hour, and vital high protein at 30 mL an hour, which is goal. We will again attempt a DIS/SBT, today, on both pressure support and CPAP. White count 8.2, hemoglobin 7.6, hematocrit 27.7, and platelet count 288,000. Sodium 139, potassium 4, chlorides 103, CO2 26, BUN 28, and creatinine 0.91. The patient's chest x-ray suggests that the endotracheal tube should be pushed down about a centimeter or 2. In addition, the x-ray is consistent with either infiltrate and/or fluid overload. Progress note dated 02/20/2022. 76-year-old male admitted on February 12 for hypercapnic respiratory failure and CHF. The patient was extubated yesterday, February 19. Currently, he is on BiPAP, with settings of 15/5 and 50%. He remains on saline at 10 mL an hour. He also remains on Unasyn as his antibiotic. Laboratory data today includes a white count of 11.8, hemoglobin 8.2, hematocrit 31.6, and a platelet count 362,000. Sodium 139, potassium 4.5, chlorides 102, CO2 25, anion gap 12, BUN 35, and creatinine 1.09. Abdominal wound cultures show evidence of staph a ureus, and anaerobic gram-negative saline. No chest x-ray today as yet. Objective - Vital Signs Vital signs: Vital Signs Temp 98.9 F 02/20/22 04:00 Pulse 114 H 02/20/22 07:28 Resp 26 H 02/20/22 06:00 BP 102/73 02/20/22 06:00 Pulse Ox 98 02/20/22 06:00 FiO2 50 02/20/22 07:26 Intake & Output 02/19/22 02/20/22 02/20/22 18:59 06:59 18:59 Intake Total 665.879 328 Output Total 595 425 Balance 70.879 -97 Weight 103 kg 108.5 kg Intake: IV 435 328 0.9 KVO 260 210 Ampicillin-Sulbactam 3 gm 100 100 In Sodium Chloride 0.9% 100 ml @ 200 mls/hr IVPB Q6HR [facility]AD Rx#:[id number] pressure bag 75 18 Intake, IV Titration 170.879 Amount Ampicillin-Sulbactam 3 gm 100 In Sodium Chloride 0.9% 100 ml @ 200 mls/hr IVPB Q6HR [facility]AD Rx#:[id number] Norepinephrine 32 mg In 16.339 Sodium Chloride 0.9% 218 ml @ 0.05 MCG/KG/MIN 2. 344 mls/hr IV .Q24H [facility]AD Rx#:[id number] propofoL 1,000 mg In 54.540 Empty Bag 1 bag @ 5 MCG/ KG/MIN 3.266 mls/hr IV . Q24H [facility]AD Rx#:[id number] Tube Feeding 60 Output: Urine 595 425 Other: Voiding Method Indwelling Catheter Indwelling Catheter ABP, PAP, CO, CI - Last Documented Arterial Blood Pressure 106/57 - Exam No acute distress, currently on BiPAP. HEENT examination is grossly unremarkable. Neck supple. Full range of motion. No adenopathy thyromegaly or neck vein distention. Cardiovascular examination reveals regular rhythm rate. S1-S2 normal. No S3 or S4. A systolic murmur is noted. Heart sounds are distant. Heart rate 114 bpm. Lungs reveal scattered bilateral rhonchi. No wheezes. No crackles. Breath sounds equal bilaterally. Saturations are 98 %. Abdomen soft, with minimal bowel sounds. Surgical dressings are noted. Extremities are intact. No cyanosis clubbing or edema. Skin is without rash or lesion. Neurologic examination is brief but nonfocal. - Labs CBC & Chem 7: 02/20/22 04:54 02/20/22 04:54 Labs: Abnormal Lab Results - Last 24 Hours (Table) 02/19/22 02/19/22 02/19/22 Range/Units 05:08 11:20 17:31 WBC (3.8-10.6) k/uL RBC (4.30-5.90) m/uL Hgb (13.0-17.5) gm/dL Hct (39.0-53.0) % MCH (25.0-35.0) pg MCHC (31.0-37.0) g/dL RDW (11.5-15.5) % Lymphocytes # (Manual) 0.65 L (1.0-4.8) k/uL Myelocytes # (Manual) 0.08 H (0) k/uL Nucleated RBCs 1 H (0-0) /100 WBC BUN (9-20) mg/dL Glucose (74-99) mg/dL POC Glucose (mg/dL) 173 H 162 H (70-110) mg/dL 02/20/22 02/20/22 02/20/22 Range/Units 00:20 04:54 04:54 WBC 11.8 H (3.8-10.6) k/uL RBC 3.71 L (4.30-5.90) m/uL Hgb 8.2 L (13.0-17.5) gm/dL Hct 31.6 L (39.0-53.0) % MCH 22.0 L (25.0-35.0) pg MCHC 25.9 L (31.0-37.0) g/dL RDW 18.0 H (11.5-15.5) % Lymphocytes # (Manual) (1.0-4.8) k/uL Myelocytes # (Manual) (0) k/uL Nucleated RBCs (0-0) /100 WBC BUN 35 H (9-20) mg/dL Glucose 139 H (74-99) mg/dL POC Glucose (mg/dL) 141 H (70-110) mg/dL 02/20/22 02/20/22 Range/Units 05:55 06:51 WBC (3.8-10.6) k/uL RBC (4.30-5.90) m/uL Hgb (13.0-17.5) gm/dL Hct (39.0-53.0) % MCH (25.0-35.0) pg MCHC (31.0-37.0) g/dL RDW (11.5-15.5) % Lymphocytes # (Manual) (1.0-4.8) k/uL Myelocytes # (Manual) (0) k/uL Nucleated RBCs (0-0) /100 WBC BUN (9-20) mg/dL Glucose (74-99) mg/dL POC Glucose (mg/dL) 143 H 142 H (70-110) mg/dL Microbiology - Last 24 Hours (Table) 02/13/22 07:00 Blood Culture - Final Blood No Growth after 144 hours Assessment and Plan Assessment: Acute hypoxemic and hypercapnic respiratory failure, requiring intubation and mechanical ventilation on February 13, 2022, status post extubation on 022. Probable sepsis/septic shock. Healthcare acquired pneumonia. Surgical site wound infection, secondary to methicillin sensitive Staphylococcus aureus. Acute kidney injury. Severe aortic stenosis. Chronic diastolic CHF. Type 2 diabetes mellitus. Chronic anemia. Benign essential hypertension. Chronic polycythemia. History of bowel resection, December 2021. Plan: Plan dated 02/17/2022. The patient will have a daily interruption of sedation. He may or may not be ready for a spontaneous breathing trial. Labs, x-rays, and medications are reviewed. He currently remains on propofol at 40 mcg/kg/m, and a modest dose of norepinephrine at 8 mcg/m. He is receiving tube feedings. He remains on Unasyn. We will continue to follow make recommendations along the way. Progno sis is certainly guarded. We do continue GI and DVT prophylaxis. Plan dated 02/18/2022. The patient will be given another daily interruption of sedation today. Hopefully, he'll do better than he did yesterday. Currently, norepinephrine has been weaned off. Remains on tube feedings. Blood gases are consistent with a mild metabolic alkalosis. Labs, x-rays, and medications are reviewed. Prog nosis is certainly guarded. We will continue to follow the patient and make recommendations along the way. We continue GI and DVT prophylaxis. Plan dated 02/19/2022. The patient is again seen today in room 262. Labs, x-rays, and medications are reviewed. The patient remains on propofol at 30 mcg/kg/m, and norepinephrine at 5 mcg/m. We will attempt another daily interruption of sedation and spontaneously breathing trial. We are hoping that he is ready for extubation. This will depend on his mental status, his weaning parameters, and his cuff leak. We will continue to follow and make recommendations along the way. Plan dated 02/21/2020. The patient was extubated yesterday, February 19, to BiPAP. He remains on BiPAP with settings of 15/5 and 50%. Getting saline at 10 mL an hour. He remains on Unasyn for his surgical wound infections. The patient is still very tenuous. We'll continue to watch him in the intensive care unit. He may require reintubation. The patient will be trialed off of BiPAP this morning. Labs, x-rays, and medications are reviewed. Prognosis is certainly very guarded. We'll follow make recommendations along the way. Time with Patient: Greater than 30
[2022-02-20] MEDS: LACTULOSE 20 GM/30 ML CUP PO SCH ×2 (08:44→19:42)
[2022-02-20] MEDS: COLLAGENASE 250 UNIT/GM OINTMENT 30 GM TUBE TOPICAL SCH (08:45)
[2022-02-20] MEDS: OXYBUTYNIN CHLORIDE 5 MG TAB PO SCH ×2 (08:45→19:42)
[2022-02-20] MEDS: PANTOPRAZOLE 40 MG/10 ML VIAL IVP SCH (08:45)
[2022-02-20] MEDS: CHLORHEXIDINE GLUCONATE 15 ML CUP MUCOUS MEM SCH (08:45)
[2022-02-20] MEDS: HEPARIN SODIUM,PORCINE/PF 5,000 UNIT/0.5 ML SYRINGE SQ SCH ×2 (08:45→21:28)
--- NOTE | 2022-02-20 11:11 | P.PN ---
Subjective Progress Note Date: 02/20/22 CHIEF COMPLAINT: Respiratory failure HISTORY OF PRESENT ILLNESS: Patient was extubated yesterday. He is currently on 4 L. He is able to follow some simple commands. He is off the Levophed. He did have a bowel movement yesterday. He is afebrile. Tachycardic. WBC did go up from 8.1-11.8 hemoglobin 8.2 platelets 362 Patient being treated for pneumonia and CHF. Patient seen and examined with Dr. Tran PHYSICAL EXAM: VITAL SIGNS: Reviewed. GENERAL: Intubated ABDOMEN: Soft. Obese. Distended. Clearish drainage from abdominal incision wounds. ASSESSMENT: 1. Abdominal wound. Per Dr. tran the MSSA growing in the abdominal wound is likely colonization 2. 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 History of surgical site infection during last hospitalization 4. Constipation PLAN: -Patient scheduled for swallow eval today -Continue local wound care -Continue antibiotics -No surgical intervention planned -Continue ICU management and supportive care -Continue tube feed for nutrition support -Continue lactulose for constipation Physician Informatics Pharmacist note has been reviewed by physician. Signing provider agrees with the documented findings, assessment, and plan of care. Objective - Vital Signs Vital signs: Vital Signs Temp 98.4 F 02/20/22 08:00 Pulse 113 H 02/20/22 11:07 Resp 39 H 02/20/22 09:00 BP 99/73 02/20/22 09:00 Pulse Ox 96 02/20/22 09:00 FiO2 50 02/20/22 10:59 Intake & Output 02/19/22 02/20/22 02/20/22 18:59 06:59 18:59 Intake Total 665.879 328 48 Output Total 595 425 100 Balance 70.879 -97 -52 Weight 103 kg 108.5 kg Intake: IV 435 328 48 0.9 KVO 260 210 30 Ampicillin-Sulbactam 3 gm 100 100 In Sodium Chloride 0.9% 100 ml @ 200 mls/hr IVPB Q6HR BRAD Rx#:[id number] pressure bag 75 18 18 Intake, IV Titration 170.879 Amount Ampicillin-Sulbactam 3 gm 100 In Sodium Chloride 0.9% 100 ml @ 200 mls/hr IVPB Q6HR BRAD Rx#:[id number] Norepinephrine 32 mg In 16.339 Sodium Chloride 0.9% 218 ml @ 0.05 MCG/KG/MIN 2. 344 mls/hr IV .Q24H BRAD Rx#:[id number] propofoL 1,000 mg In 54.540 Empty Bag 1 bag @ 5 MCG/ KG/MIN 3.266 mls/hr IV . Q24H BRAD Rx#:[id number] Tube Feeding 60 Output: Urine 595 425 100 Other: Voiding Method Indwelling Catheter Indwelling Catheter Indwelling Catheter ABP, PAP, CO, CI - Last Documented Arterial Blood Pressure 111/59 - Labs CBC & Chem 7: 02/20/22 04:54 02/20/22 04:54 Labs: Abnormal Lab Results - Last 24 Hours (Table) 02/19/22 02/19/22 02/19/22 Range/Units 05:08 11:20 17:31 WBC (3.8-10.6) k/uL RBC (4.30-5.90) m/uL Hgb (13.0-17.5) gm/dL Hct (39.0-53.0) % MCH (25.0-35.0) pg MCHC (31.0-37.0) g/dL RDW (11.5-15.5) % Lymphocytes # (Manual) 0.65 L (1.0-4.8) k/uL Myelocytes # (Manual) 0.08 H (0) k/uL Nucleated RBCs 1 H (0-0) /100 WBC BUN (9-20) mg/dL Glucose (74-99) mg/dL POC Glucose (mg/dL) 173 H 162 H (70-110) mg/dL 02/20/22 02/20/22 02/20/22 Range/Units 00:20 04:54 04:54 WBC 11.8 H (3.8-10.6) k/uL RBC 3.71 L (4.30-5.90) m/uL Hgb 8.2 L (13.0-17.5) gm/dL Hct 31.6 L (39.0-53.0) % MCH 22.0 L (25.0-35.0) pg MCHC 25.9 L (31.0-37.0) g/dL RDW 18.0 H (11.5-15.5) % Lymphocytes # (Manual) (1.0-4.8) k/uL Myelocytes # (Manual) (0) k/uL Nucleated RBCs (0-0) /100 WBC BUN 35 H (9-20) mg/dL Glucose 139 H (74-99) mg/dL POC Glucose (mg/dL) 141 H (70-110) mg/dL 02/20/22 02/20/22 Range/Units 05:55 06:51 WBC (3.8-10.6) k/uL RBC (4.30-5.90) m/uL Hgb (13.0-17.5) gm/dL Hct (39.0-53.0) % MCH (25.0-35.0) pg MCHC (31.0-37.0) g/dL RDW (11.5-15.5) % Lymphocytes # (Manual) (1.0-4.8) k/uL Myelocytes # (Manual) (0) k/uL Nucleated RBCs (0-0) /100 WBC BUN (9-20) mg/dL Glucose (74-99) mg/dL POC Glucose (mg/dL) 143 H 142 H (70-110) mg/dL Microbiology - Last 24 Hours (Table) 02/13/22 07:00 Blood Culture - Final Blood No Growth after 144 hours
[2022-02-20 12:00] LABS: Glucose,Whole Blood 148 mg/dL (70-110)
--- NOTE | 2022-02-20 14:18 | P.PN ---
Subjective Progress Note Date: 02/20/22 Patient was seen and examined. Off Levophed. Extubated on 02/19. Currently on BiPAP 20/10 with FiO2 of 40%. General: Patient appears fatigued on BiPAP Derm: warm, dry Head: atraumatic, normocephalic, symmetric Eyes: EOMI, no lid lag, anicteric sclera Mouth: no lip lesion, mucus membranes moist Cardiovascular: Tachycardic, systolic ejection murmur Lungs: Decreased breath sounds bilaterally, ventilator dependent Abdominal: soft, abdominal dressing c/d/i Ext: no gross muscle atrophy, no edema, no contractures Neuro: Unable to accurately assess Psych: Unable to accurately assess Assessment/plan: Acute Hypoxemic and Hypercarbic Respiratory Failure Septic Shock with Toxic/Metabolic Encephalopathy Community Acquired Pneumonia Surgical Site Infection s/p Bowel Resection Acute Kidney Injury - Extubated 02/19 - Admit to ICU, telemetry - ICU, ID consultation appreciated - Wound Care consult - Surgery consult - Bronchodilators - Unasyn - f/u BCx - NGTD, Wound Cx - staph aureus - IVF - Attempt to wean levophed - Monitor I/Os, UOP - Daily labs Severe Aortic Stenosis Chronic Diastolic Heart Failure - Strict I/Os, daily weights - Cardiology on board - Echocardiogram shows EF of 45% with moderate concentric LVH, severe calcification of the mitral valve, severe aortic stenosis Normocytic anemia -Stable DM - Insulin sliding scale SC Q6H FULL CODE DVT PPX heparin SC BID Objective - Vital Signs Vital signs: Vital Signs Temp 98.5 F 02/20/22 12:00 Pulse 114 H 02/20/22 12:00 Resp 34 H 02/20/22 12:00 BP 99/60 02/20/22 12:00 Pulse Ox 94 L 02/20/22 12:00 FiO2 40 02/20/22 12:00 Intake & Output 02/19/22 02/20/22 02/20/22 18:59 06:59 18:59 Intake Total 665.879 328 96 Output Total 595 425 165 Balance 70.879 -97 -69 Weight 103 kg 108.5 kg Intake: IV 435 328 96 0.9 KVO 260 210 60 Ampicillin-Sulbactam 3 gm 100 100 In Sodium Chloride 0.9% 100 ml @ 200 mls/hr IVPB Q6HR ON LICENSE OF [facility] Rx#:[id number] pressure bag 75 18 36 Intake, IV Titration 170.879 Amount Ampicillin-Sulbactam 3 gm 100 In Sodium Chloride 0.9% 100 ml @ 200 mls/hr IVPB Q6HR [facility] Rx#:[id number] Norepinephrine 32 mg In 16.339 Sodium Chloride 0.9% 218 ml @ 0.05 MCG/KG/MIN 2. 344 mls/hr IV .Q24H [facility] Rx#:[id number] propofoL 1,000 mg In 54.540 Empty Bag 1 bag @ 5 MCG/ KG/MIN 3.266 mls/hr IV . Q24H [facility] Rx#:[id number] Tube Feeding 60 Output: Urine 595 425 165 Other: Voiding Method Indwelling Catheter Indwelling Catheter Indwelling Catheter ABP, PAP, CO, CI - Last Documented Arterial Blood Pressure 106/55 - Labs CBC & Chem 7: 02/20/22 04:54 02/20/22 04:54 Labs: Abnormal Lab Results - Last 24 Hours (Table) 02/19/22 02/20/22 02/20/22 Range/Units 17:31 00:20 04:54 WBC 11.8 H (3.8-10.6) k/uL RBC 3.71 L (4.30-5.90) m/uL Hgb 8.2 L (13.0-17.5) gm/dL Hct 31.6 L (39.0-53.0) % MCH 22.0 L (25.0-35.0) pg MCHC 25.9 L (31.0-37.0) g/dL RDW 18.0 H (11.5-15.5) % BUN (9-20) mg/dL Glucose (74-99) mg/dL POC Glucose (mg/dL) 162 H 141 H (70-110) mg/dL 02/20/22 02/20/22 02/20/22 Range/Units 04:54 05:55 06:51 WBC (3.8-10.6) k/uL RBC (4.30-5.90) m/uL Hgb (13.0-17.5) gm/dL Hct (39.0-53.0) % MCH (25.0-35.0) pg MCHC (31.0-37.0) g/dL RDW (11.5-15.5) % BUN 35 H (9-20) mg/dL Glucose 139 H (74-99) mg/dL POC Glucose (mg/dL) 143 H 142 H (70-110) mg/dL 02/20/22 Range/Units 11:58 WBC (3.8-10.6) k/uL RBC (4.30-5.90) m/uL Hgb (13.0-17.5) gm/dL Hct (39.0-53.0) % MCH (25.0-35.0) pg MCHC (31.0-37.0) g/dL RDW (11.5-15.5) % BUN (9-20) mg/dL Glucose (74-99) mg/dL POC Glucose (mg/dL) 148 H (70-110) mg/dL
[2022-02-20] MEDS ORDERED: FUROSEMIDE 10 MG/ML 10 ML VIAL IV STA (17:25)
[2022-02-20 17:35] LABS: Glucose,Whole Blood 141 mg/dL (70-110)
[2022-02-20] MEDS: ASPIRIN 81 MG PO SCH (19:42)
[2022-02-20] MEDS ORDERED: ACETAMINOPHEN IV (For NPO) 1,000 MG in EMPTY BAG 1 BAG IVPB ONE (20:00)
--- NOTE | 2022-02-20 21:55 | P.PN ---
Subjective Progress Note Date: 02/19/22 Principal diagnosis: Possible sepsis Patient is a 76-year-old male with a past medical history again for diverticulitis recurrent GI bleed in this patient who is status post laparotomy and no anterior resection on 01/15/2022 subsequently [facility] the patient was brought for evaluation of confusion and increasing shortness of breath patient did not get intubated. On today's evaluation that is 02/19/2022, the patient did spike a low-grade fever 100.7 last evening the patient is afebrile this morning, patient remains to be intubated on the vent, FiO2 is stable at 35%, no significant purulent secretion through the ET or diarrhea reported by the nursing staff, Objective - Vital Signs Vital signs: Vital Signs Temp 98.6 F 02/19/22 08:00 Pulse 118 H 02/19/22 11:02 Resp 26 H 02/19/22 11:00 BP 112/69 02/19/22 11:00 Pulse Ox 98 02/19/22 11:00 FiO2 50 02/19/22 11:36 Intake & Output 02/18/22 02/19/22 02/19/22 18:59 06:59 18:59 Intake Total 999.903 958.144 226.769 Output Total 725 445 260 Balance 274.903 513.144 -33.231 Weight 103 kg Intake: IV 332 362 101 0.9 KVO 260 220 80 Ampicillin-Sulbactam 3 gm 100 In Sodium Chloride 0.9% 100 ml @ 200 mls/hr IVPB Q6HR [facility] Rx#:[id number] pressure bag 72 42 21 Intake, IV Titration 247.903 111.144 65.769 Amount Norepinephrine 32 mg In 47.903 4.612 11.229 Sodium Chloride 0.9% 218 ml @ 0.05 MCG/KG/MIN 2. 344 mls/hr IV .Q24H [facility] Rx#:[id number] propofoL 1,000 mg In 200.000 106.532 54.540 Empty Bag 1 bag @ 5 MCG/ KG/MIN 3.266 mls/hr IV . Q24H [facility] Rx#:[id number] Tube Feeding 390 330 60 Other 30 155 Output: Urine 725 445 260 Other: Voiding Method Indwelling Catheter Indwelling Catheter Indwelling Catheter # Bowel Movements 1 ABP, PAP, CO, CI - Last Documented Arterial Blood Pressure 174/159 - Exam GENERAL DESCRIPTION: An elderly male intubated on the vent RESPIRATORY SYSTEM: Unlabored breathing , decreased breath sounds at bases HEART: S1 S2 regular rate and rhythm , ABDOMEN: Soft , no tenderness EXTREMITIES: One plus edema feet - Labs CBC & Chem 7: 02/20/22 04:54 02/20/22 04:54 Labs: Abnormal Lab Results - Last 24 Hours (Table) 02/18/22 02/18/22 02/19/22 Range/Units 17:04 23:36 05:07 RBC (4.30-5.90) m/uL Hgb (13.0-17.5) gm/dL Hct (39.0-53.0) % MCH (25.0-35.0) pg MCHC (31.0-37.0) g/dL RDW (11.5-15.5) % ABG pH (7.35-7.45) ABG HCO3 (21-25) mmol/L ABG Total CO2 (19-24) mmol/L ABG O2 Saturation (94-97) % ABG Hematocrit (34.0-46.0) % Hemoglobin (13.0-17.5) gm/dL BUN (9-20) mg/dL Glucose (74-99) mg/dL POC Glucose (mg/dL) 176 H 176 H 144 H (70-110) mg/dL Calcium (8.4-10.2) mg/dL 02/19/22 02/19/22 02/19/22 Range/Units 05:08 05:08 06:10 RBC 3.35 L (4.30-5.90) m/uL Hgb 7.6 L (13.0-17.5) gm/dL Hct 27.7 L (39.0-53.0) % MCH 22.8 L (25.0-35.0) pg MCHC 27.5 L (31.0-37.0) g/dL RDW 18.3 H (11.5-15.5) % ABG pH 7.46 H (7.35-7.45) ABG HCO3 27 H (21-25) mmol/L ABG Total CO2 29 H (19-24) mmol/L ABG O2 Saturation 99.2 H (94-97) % ABG Hematocrit 23 L (34.0-46.0) % Hemoglobin 7.4 L (13.0-17.5) gm/dL BUN 28 H (9-20) mg/dL Glucose 134 H (74-99) mg/dL POC Glucose (mg/dL) (70-110) mg/dL Calcium 7.8 L (8.4-10.2) mg/dL 02/19/22 Range/Units 11:20 RBC (4.30-5.90) m/uL Hgb (13.0-17.5) gm/dL Hct (39.0-53.0) % MCH (25.0-35.0) pg MCHC (31.0-37.0) g/dL RDW (11.5-15.5) % ABG pH (7.35-7.45) ABG HCO3 (21-25) mmol/L ABG Total CO2 (19-24) mmol/L ABG O2 Saturation (94-97) % ABG Hematocrit (34.0-46.0) % Hemoglobin (13.0-17.5) gm/dL BUN (9-20) mg/dL Glucose (74-99) mg/dL POC Glucose (mg/dL) 173 H (70-110) mg/dL Calcium (8.4-10.2) mg/dL Microbiology - Last 24 Hours (Table) 02/13/22 07:00 Blood Culture - Final Blood No Growth after 144 hours 02/12/22 16:57 Blood Culture - Final Blood No Growth after 144 hours Assessment and Plan (1) Abdominal wall defect, acquired Current Visit: Yes Status: Acute Code(s): M95.8 - OTH ACQUIRED DEFORMITIES OF MUSCULOSKELETAL SYSTEM SNOMED Code(s): 216249606110057 (2) Pneumonia Current Visit: Yes Status: Acute Code(s): J18.9 - PNEUMONIA, UNSPECIFIED ORGANISM SNOMED Code(s): 525137847 Plan: 1patient presented to hospital with confusion and increasing shortness of breath in this patient with evidence of ascites effusion and 3+ edema feet likely related to fluid overload underlying pneumonia less likely but not entirely excluded. 2patient with a nonhealing lower abdominal wound however there is no evidence of any surrounding redness and CT abdominal pelvis did not mention any abscess. 3abdominal cultures are growing MSSA and anaerobes, the patient sputum is growing Malathi. 4patient will continue with Unasyn and continue supportive care Time with Patient: Less than 30
--- NOTE | 2022-02-20 21:58 | P.PN ---
Subjective Progress Note Date: 02/20/22 Principal diagnosis: Possible sepsis Patient is a 76-year-old male with a past medical history again for diverticulitis recurrent GI bleed in this patient who is status post laparotomy and no anterior resection on 01/15/2022 subsequently the patient was at the correction from it the patient was brought for evaluation of confusion and increasing shortness of breath patient did not get intubated. The patient was extubated 02/19/2022 On today's evaluation that is 02/20/2022, the patient is afebrile, the patient is breathing Comfortably on nasal cannula oxygen the patient is lethargic and not a very good historian, no vomiting no diarrhea or any visual changes re ported by the nursing staff Objective - Vital Signs Vital signs: Vital Signs Temp 98.5 F 02/20/22 12:00 Pulse 115 H 02/20/22 14:00 Resp 18 02/20/22 14:00 BP 103/60 02/20/22 14:00 Pulse Ox 94 L 02/20/22 13:00 FiO2 40 02/20/22 12:00 Intake & Output 02/19/22 02/20/22 02/20/22 18:59 06:59 18:59 Intake Total 665.879 328 128 Output Total 595 425 225 Balance 70.879 -97 -97 Weight 103 kg 108.5 kg Intake: IV 435 328 128 0.9 KVO 260 210 80 Ampicillin-Sulbactam 3 gm 100 100 In Sodium Chloride 0.9% 100 ml @ 200 mls/hr IVPB Q6HR [facility] Rx#:[id number] pressure bag 75 18 48 Intake, IV Titration 170.879 Amount Ampicillin-Sulbactam 3 gm 100 In Sodium Chloride 0.9% 100 ml @ 200 mls/hr IVPB Q6HR [facility] Rx#:[id number] Norepinephrine 32 mg In 16.339 Sodium Chloride 0.9% 218 ml @ 0.05 MCG/KG/MIN 2. 344 mls/hr IV .Q24H [facility] Rx#:[id number] propofoL 1,000 mg In 54.540 Empty Bag 1 bag @ 5 MCG/ KG/MIN 3.266 mls/hr IV . Q24H [facility] Rx#:[id number] Tube Feeding 60 Output: Urine 595 425 225 Other: Voiding Method Indwelling Catheter Indwelling Catheter Indwelling Catheter ABP, PAP, CO, CI - Last Documented Arterial Blood Pressure 106/52 - Exam GENERAL DESCRIPTION: An elderly male lying in bed in no distress RESPIRATORY SYSTEM: Unlabored breathing , coarse breath sounds bilaterally HEART: S1 S2 regular rate and rhythm , ABDOMEN: Soft , no tenderness EXTREMITIES: One plus edema feet - Labs CBC & Chem 7: 02/20/22 04:54 02/20/22 04:54 Labs: Abnormal Lab Results - Last 24 Hours (Table) 02/19/22 02/20/22 02/20/22 Range/Units 17:31 00:20 04:54 WBC 11.8 H (3.8-10.6) k/uL RBC 3.71 L (4.30-5.90) m/uL Hgb 8.2 L (13.0-17.5) gm/dL Hct 31.6 L (39.0-53.0) % MCH 22.0 L (25.0-35.0) pg MCHC 25.9 L (31.0-37.0) g/dL RDW 18.0 H (11.5-15.5) % BUN (9-20) mg/dL Glucose (74-99) mg/dL POC Glucose (mg/dL) 162 H 141 H (70-110) mg/dL 02/20/22 02/20/22 02/20/22 Range/Units 04:54 05:55 06:51 WBC (3.8-10.6) k/uL RBC (4.30-5.90) m/uL Hgb (13.0-17.5) gm/dL Hct (39.0-53.0) % MCH (25.0-35.0) pg MCHC (31.0-37.0) g/dL RDW (11.5-15.5) % BUN 35 H (9-20) mg/dL Glucose 139 H (74-99) mg/dL POC Glucose (mg/dL) 143 H 142 H (70-110) mg/dL 02/20/22 Range/Units 11:58 WBC (3.8-10.6) k/uL RBC (4.30-5.90) m/uL Hgb (13.0-17.5) gm/dL Hct (39.0-53.0) % MCH (25.0-35.0) pg MCHC (31.0-37.0) g/dL RDW (11.5-15.5) % BUN (9-20) mg/dL Glucose (74-99) mg/dL POC Glucose (mg/dL) 148 H (70-110) mg/dL Assessment and Plan (1) Abdominal wall defect, acquired Current Visit: Yes Status: Acute Code(s): M95.8 - OTH ACQUIRED DEFORMITIES OF MUSCULOSKELETAL SYSTEM SNOMED Code(s): 008186848180288 (2) Pneumonia Current Visit: Yes Status: Acute Code(s): J18.9 - PNEUMONIA, UNSPECIFIED ORGANISM SNOMED Code(s): 894832859 Plan: 1patient presented to hospital with confusion and increasing shortness of breath in this patient with evidence of ascites effusion and 3+ edema feet likely related to fluid overload underlying pneumonia less likely but not entirely excluded. 2patient with a nonhealing lower abdominal wound however there is no evidence of any surrounding redness and CT abdominal pelvis did not mention any abscess. 3abdominal cultures are growing MSSA and anaerobes, the patient sputum is growing Malathi. 4patient seemed to have some clinical improvement and has been extubated patient will continue with Unasyn and continue supportive care Time with Patient: Less than 30
[2022-02-20 23:33] LABS: Appearance,Urine Turbid (Clear); Bacteria,Urine Rare /hpf; Bilirubin,Urine Negative (Negative); Blood,Urine Large (Negative); Color,Urine Yellow; Glucose,Urine (UA) Negative (Negative); Hyaline Casts,Urine 36 /lpf (0-2); Ketones,Urine 1+ (Negative); Leukocyte Esterase,Urine Small (Negative); Mucus,Urine Rare /hpf; Nitrite,Urine Negative (Negative); Protein,Urine 1+ (Negative); RBC,Urine >182 /hpf (0-5); Specific Gravity,Urine 1.021 (1.001-1.035); Squamous Epithelial Cell,Urine <1 /hpf (0-4); WBC,Urine 10 /hpf (0-5)
[2022-02-20 23:57] LABS: ABG HCO3 24 mmol/L (21-25); ABG Hematocrit 25 % (34.0-46.0); ABG Oxygen Saturation 97.9 % (94-97); ABG PCO2 54 mmHg (35-45); ABG PH 7.26 (7.35-7.45); ABG PO2 102 mmHg (83-108); ABG TCO2 26 mmol/L (19-24); Allen Test Performed? Yes
[2022-02-21 00:10] LABS: Glucose,Whole Blood 174 mg/dL (70-110)
[2022-02-21 00:45] LABS: Glucose,Whole Blood 158 mg/dL (70-110)
[2022-02-21] MEDS: INSULIN ASPART (NovoLOG) 100 UNIT/ML VIAL SQ SCH ×5 (00:47→23:58)
[2022-02-21] MEDS: PIPERACILLIN-TAZOBACTAM 3.375 GM in SODIUM CHLORIDE 0.9% 100 ML IVPB SCH ×4 (00:48→23:50)
[2022-02-21 01:07] LABS: ABG Base Excess -2.7 mmol/L; ABG HCO3 24 mmol/L (21-25); ABG Hematocrit 25 % (34.0-46.0); ABG Oxygen Saturation 94.9 % (94-97); ABG PCO2 47 mmHg (35-45); ABG PH 7.31 (7.35-7.45); ABG PO2 76 mmHg (83-108); ABG TCO2 25 mmol/L (19-24); Allen Test Performed? Yes
--- NOTE | 2022-02-21 01:21 | XR ---
EXAMINATION TYPE: XR chest 1V portable DATE OF EXAM: 02/21/2022 COMPARISON: 02/19/2022 HISTORY: Tube placement TECHNIQUE: Single view FINDINGS: Endotracheal tube is 3.5 cm from the mima. There is nasogastric tube in the stomach. Ther e is pulmonary airspace edema. There is almost complete opacification left hemithorax. IMPRESSION: There is large left pleural effusion which has increased significantly compared to recent exam. There is pulmonary edema that could be congestive heart failure or RDS.
[2022-02-21] MEDS: ACETAMINOPHEN TAB 325 MG TAB PO PRN ×2 (03:35→20:59)
[2022-02-21 04:11] LABS: Albumin 2.9 g/dL (3.5-5.0); C Reactive Protein 4.2 mg/dL (<1.0); Calcium 8.7 mg/dL (8.4-10.2); Potassium 4.4 mmol/L (3.5-5.1); Total Bilirubin 0.9 mg/dL (0.2-1.3); Total Protein 5.5 g/dL (6.3-8.2)
[2022-02-21] MEDS: IPRATROPIUM-ALBUTEROL 3 ML NEB INHALATION SCH ×6 (04:20→23:56)
[2022-02-21 04:48] LABS: Anisocytosis Slight; HCT 30.4 % (39.0-53.0); Hypochromasia Marked; MCH 21.9 pg (25.0-35.0); MCHC 26.3 g/dL (31.0-37.0); MCV 83.5 fL (80.0-100.0); Platelet Count 528 k/uL (150-450); Poikilocytosis Moderate; RBC 3.64 m/uL (4.30-5.90); RDW 18.6 % (11.5-15.5)
[2022-02-21 05:50] LABS: ABG Base Excess -1.7 mmol/L; ABG HCO3 23 mmol/L (21-25); ABG PCO2 37 mmHg (35-45); ABG PH 7.41 (7.35-7.45); ABG PO2 145 mmHg (83-108); ABG TCO2 24 mmol/L (19-24); Allen Test Performed? Yes
[2022-02-21 05:51] LABS: ABG Hematocrit 24 % (34.0-46.0)
[2022-02-21 05:57] LABS: Glucose,Whole Blood 154 mg/dL (70-110)
[2022-02-21 06:52] LABS: Band Neutrophils % 8 %; Lymphocytes # (M) 1.46 k/uL (1.0-4.8); Monocytes # (M) 0.56 k/uL (0-1.0); Neutrophils % (M) 76 %; Nucleated Red Blood Cells 4 /100 WBC (0-0); Total Cells Counted 200; WBC 11.2 k/uL (3.8-10.6)
[2022-02-21 06:54] LABS: Polychromasia Present
[2022-02-21 06:56] LABS: Large Platelets Present
[2022-02-21] MEDS ORDERED: LACTATED RINGERS 1,000 ML IV ONE (07:00)
[2022-02-21 08:04] LABS: INR 1.2 (<1.2); Prothrombin Time 12.5 sec (9.0-12.0)
--- NOTE | 2022-02-21 08:05 | XR ---
EXAMINATION TYPE: XR chest 1V portable DATE OF EXAM: 02/21/2022 COMPARISON: 02/21/2022 HISTORY: Tube placement TECHNIQUE: Single frontal view of the chest is obtained. FINDINGS: Diffuse interstitial pattern with bilateral infiltrate and pleural effusion. Cardiomegaly. ET and NG tube stable. Right-sided PICC line noted. No sizable pneumothorax. Improved aeration left upper lobe. IMPRESSION: 1. Diffuse bilateral airspace disease with pleural effusion correlate for ARDS, diffuse pneumonia or pulmonary edema. There is improved aeration with regard to the left upper lobe.
--- NOTE | 2022-02-21 08:19 | P.PN ---
Subjective Principal diagnosis: Heart failure with preserved ejection fraction/severe aortic stenosis This is a 76-year-old gentleman with aortic stenosis and chronic kidney disease as well as hypertension and dyslipidemia as well as multiple comorbid conditions was admitted to the hospital with acute on chronic diastolic heart failure and he developed respiratory failure requiring intubation and mechanical ventilation. The patient underwent recently an abdominal surgery and he did have surgical site wound infection secondary to methicillin-resistant staph aureus. The patient was seen this morning. He continues to be intubated on mechanical ventilation. He felt an attempt to wean yesterday. He continues to be unstable and requiring norepinephrine. He has been in sinus rhythm with PACs. February 202021 The patient was seen this morning he was extubated yesterday. He remains tachypneic and slightly tachycardic and he is in mild respiratory distress. Otherwise he's off norepinephrine and he seems hemodynamically stable. He is in normal sinus mechanism was mild sinus tachycardia probably related to the agitation in mild respiratory distress. From a cardiac standpoint of view, we'll continue the current medical regimen. Continue following up with the patient February 212021 The patient was seen this morning. Unfortunately he was reintubated yesterday because of tachypnea and respiratory distress. He has been maintaining normal sinus mechanism. He was given Lasix IV yesterday. The chest x-ray from this morning showed an ARDS versus pulmonary edema. From the cardiac standpoint of view, we will continue the current medical regimen. He seems now to be hemodynamically stable and not on any vasopressors. Objective - Vital Signs Vital signs: Vital Signs Temp 100.4 F H 02/21/22 04:00 Pulse 114 H 02/21/22 07:45 Resp 24 02/21/22 07:45 BP 111/67 02/21/22 07:15 Pulse Ox 99 02/21/22 07:45 FiO2 60 02/21/22 07:15 Intake & Output 02/20/22 02/21/22 02/21/22 18:59 06:59 18:59 Intake Total 176 484.148 25.219 Output Total 335 567 30 Balance -159 -82.852 -4.781 Weight 102 kg Intake: IV 176 276 16 0.9 KVO 110 110 10 Piperacillin-Tazobactam 3 100 .375 gm In Sodium Chloride 0.9% 100 ml @ 25 mls/hr IVPB Q8HR [facility] Rx# :[id number] pressure bag 66 66 6 Intake, IV Titration 208.148 9.219 Amount Norepinephrine 32 mg In 59.767 9.219 Sodium Chloride 0.9% 218 ml @ 0.05 MCG/KG/MIN 2. 344 mls/hr IV .Q24H [facility] Rx#:[id number] propofoL 1,000 mg In 148.381 Empty Bag 1 bag @ 5 MCG/ KG/MIN 3.266 mls/hr IV . Q24H [facility] Rx#:[id number] Output: Urine 335 567 30 Other: Voiding Method Indwelling Catheter Indwelling Catheter ABP, PAP, CO, CI - Last Documented Arterial Blood Pressure 101/52 - Constitutional General appearance: Present: no acute distress - Respiratory Respiratory: bilateral: diminished - Cardiovascular Rhythm: regular - Labs CBC & Chem 7: 02/21/22 03:43 02/21/22 03:43 Labs: Abnormal Lab Results - Last 24 Hours (Table) 02/20/22 02/20/22 02/20/22 Range/Units 11:58 17:33 23:00 WBC (3.8-10.6) k/uL RBC (4.30-5.90) m/uL Hgb (13.0-17.5) gm/dL Hct (39.0-53.0) % MCH (25.0-35.0) pg MCHC (31.0-37.0) g/dL RDW (11.5-15.5) % Plt Count (150-450) k/uL Neutrophils # (Manual) (1.3-7.7) k/uL Nucleated RBCs (0-0) /100 WBC ABG pH (7.35-7.45) ABG pCO2 (35-45) mmHg ABG pO2 (83-108) mmHg ABG Total CO2 (19-24) mmol/L ABG O2 Saturation (94-97) % ABG Hematocrit (34.0-46.0) % Hemoglobin (13.0-17.5) gm/dL BUN (9-20) mg/dL Creatinine (0.66-1.25) mg/dL Glucose (74-99) mg/dL POC Glucose (mg/dL) 148 H 141 H (70-110) mg/dL C-Reactive Protein (<1.0) mg/dL Total Protein (6.3-8.2) g/dL Albumin (3.5-5.0) g/dL Urine Protein 1+ H (Negative) Urine Ketones 1+ H (Negative) Urine Blood Large H (Negative) Ur Leukocyte Esterase Small H (Negative) Urine RBC >182 H (0-5) /hpf Urine WBC 10 H (0-5) /hpf Urine Bacteria Rare H (None) /hpf Hyaline Casts 36 H (0-2) /lpf Urine Mucus Rare H (None) /hpf 02/20/22 02/21/22 02/21/22 Range/Units 23:55 00:09 00:43 WBC (3.8-10.6) k/uL RBC (4.30-5.90) m/uL Hgb (13.0-17.5) gm/dL Hct (39.0-53.0) % MCH (25.0-35.0) pg MCHC (31.0-37.0) g/dL RDW (11.5-15.5) % Plt Count (150-450) k/uL Neutrophils # (Manual) (1.3-7.7) k/uL Nucleated RBCs (0-0) /100 WBC ABG pH 7.26 L (7.35-7.45) ABG pCO2 54 H (35-45) mmHg ABG pO2 (83-108) mmHg ABG Total CO2 26 H (19-24) mmol/L ABG O2 Saturation 97.9 H (94-97) % ABG Hematocrit 25 L (34.0-46.0) % Hemoglobin 8.1 L (13.0-17.5) gm/dL BUN (9-20) mg/dL Creatinine (0.66-1.25) mg/dL Glucose (74-99) mg/dL POC Glucose (mg/dL) 174 H 158 H (70-110) mg/dL C-Reactive Protein (<1.0) mg/dL Total Protein (6.3-8.2) g/dL Albumin (3.5-5.0) g/dL Urine Protein (Negative) Urine Ketones (Negative) Urine Blood (Negative) Ur Leukocyte Esterase (Negative) Urine RBC (0-5) /hpf Urine WBC (0-5) /hpf Urine Bacteria (None) /hpf Hyaline Casts (0-2) /lpf Urine Mucus (None) /hpf 02/21/22 02/21/22 02/21/22 Range/Units 01:04 03:43 03:43 WBC 11.2 H (3.8-10.6) k/uL RBC 3.64 L (4.30-5.90) m/uL Hgb 8.0 L (13.0-17.5) gm/dL Hct 30.4 L (39.0-53.0) % MCH 21.9 L (25.0-35.0) pg MCHC 26.3 L (31.0-37.0) g/dL RDW 18.6 H (11.5-15.5) % Plt Count 528 H (150-450) k/uL Neutrophils # (Manual) 9.40 H (1.3-7.7) k/uL Nucleated RBCs 4 H (0-0) /100 WBC ABG pH 7.31 L (7.35-7.45) ABG pCO2 47 H (35-45) mmHg ABG pO2 76 L (83-108) mmHg ABG Total CO2 25 H (19-24) mmol/L ABG O2 Saturation (94-97) % ABG Hematocrit 25 L (34.0-46.0) % Hemoglobin 8.0 L (13.0-17.5) gm/dL BUN 52 H (9-20) mg/dL Creatinine 1.63 H (0.66-1.25) mg/dL Glucose 160 H (74-99) mg/dL POC Glucose (mg/dL) (70-110) mg/dL C-Reactive Protein 4.2 H (<1.0) mg/dL Total Protein 5.5 L (6.3-8.2) g/dL Albumin 2.9 L (3.5-5.0) g/dL Urine Protein (Negative) Urine Ketones (Negative) Urine Blood (Negative) Ur Leukocyte Esterase (Negative) Urine RBC (0-5) /hpf Urine WBC (0-5) /hpf Urine Bacteria (None) /hpf Hyaline Casts (0-2) /lpf Urine Mucus (None) /hpf 02/21/22 02/21/22 Range/Units 04:58 05:56 WBC (3.8-10.6) k/uL RBC (4.30-5.90) m/uL Hgb (13.0-17.5) gm/dL Hct (39.0-53.0) % MCH (25.0-35.0) pg MCHC (31.0-37.0) g/dL RDW (11.5-15.5) % Plt Count (150-450) k/uL Neutrophils # (Manual) (1.3-7.7) k/uL Nucleated RBCs (0-0) /100 WBC ABG pH (7.35-7.45) ABG pCO2 (35-45) mmHg ABG pO2 145 H (83-108) mmHg ABG Total CO2 (19-24) mmol/L ABG O2 Saturation 100.0 H (94-97) % ABG Hematocrit 24 L (34.0-46.0) % Hemoglobin 7.8 L (13.0-17.5) gm/dL BUN (9-20) mg/dL Creatinine (0.66-1.25) mg/dL Glucose (74-99) mg/dL POC Glucose (mg/dL) 154 H (70-110) mg/dL C-Reactive Protein (<1.0) mg/dL Total Protein (6.3-8.2) g/dL Albumin (3.5-5.0) g/dL Urine Protein (Negative) Urine Ketones (Negative) Urine Blood (Negative) Ur Leukocyte Esterase (Negative) Urine RBC (0-5) /hpf Urine WBC (0-5) /hpf Urine Bacteria (None) /hpf Hyaline Casts (0-2) /lpf Urine Mucus (None) /hpf Assessment and Plan Assessment: Assessment Acute on chronic heart failure with preserved ejection fraction Acute coronary syndrome likely related to hypoxemia/sepsis Acute hypoxic respiratory failure Severe aortic stenosis Cardiac arrhythmia Multiple comorbid conditions Plan Continue the current medical regimen Follow-up with the patient
--- NOTE | 2022-02-21 08:48 | P.PN ---
Subjective Progress Note Date: 02/21/22 Principal diagnosis: Respiratory failure. Reevaluated today on 02/14/22, remains in the ICU, intubated and mechanically ventilated. Patient is on assist control rate of 20, volume 500 FiO2 40% and I cut it down to 35% PEEP of 8 and I cut it down to 5. ABG today showed a pO2 of 184 pCO2 39 pH of 7.48. Patient is requiring norepinephrine at 0.09 mcg/kg/m is on IV fluid 0.9 normal saline at 75 mL per hour and he is on propofol at 40 mcg/kg/m. Receiving vital HPI 30 mL per hour. Patient remains on Zosyn, considering his CVP is only 7 and urine output is marginal I will go ahead and recommended a liter bolus of 0.9 normal saline. We will cut down the propofol and hopefully cut down on the norepinephrine if his blood pressure improves. May improve with fluid bolus and with cutting down the dose of propofol WBC count is 8.5 hemoglobin 7.6 hematocrit is 27.6 basic metabolic profile is normal bicarb is normal BUN is 41 creatinine 1.2, improving since yesterday creatinine was 1.51 a chest x-ray showed pleural parenchymal changes, air bronchogram noted in the left retrocardiac area, highly suspicious for pneumonia. Reevaluated today on 02/15/22, patient remains on the ventilator, his on assist control rate of 20 to light and 500 FiO2 35% PEEP of 5 ABG showed a pO2 of 100 pCO2 38 pH of 7.49. Patient remains on antibiotics in the form of Zosyn he is also on diuretics, the diuretics was increased since the patient continues to have findings suggestive of mild fluid overload and he also has findings suggestive of pneumonia. Chest x-ray is showing cardiomegaly with pulmonary vascular congestion and bilateral pleural effusion and bibasilar airspace disease WBC count is 8.1 hemoglobin is 7.7, basic metabolic profile is normal renal profile is normal, creatinine has been steadily improving since admission, it is 1.01 today. Sputum cultures are negative except for some yeast species and his wound culture is showing presumptive staph aureus, final sensitivities pending. In the meantime the patient is on Zosyn. He did receive vancomycin initially. Reevaluated today on 02/16/22, patient remains in the ICU, intubated and mechanically ventilated. He is on assist control rate of 20- tidal volume of 500 FiO2 35% PEEP of 5. ABG showed a pO2 of 100 pCO2 40 pH of 7.50 patient remains sedated, he is requiring more and norepinephrine overnight, he is on pro pofol at 35 mcg/kg/m, norepinephrine at 0.12 mcg/kg/m patient has not had a bowel movement since admission, lactulose. Today on plan to give the patient fluid boluses 500 mL at a time, and I plan to hold his Lasix. Hoping that fluid boluses will improve his blood pressure and hopefully down on the dose of norepinephrine. Patient remains on vital HPI 38 mL per hour. His antibiotics were transitioned to Unasyn since the patient has mostly staph aureus, MSSA in the wound culture. Yesterday the patient weaned but could not be extubated mostly because of worsening tachycardia and worsening endotracheal secretions. Hence I had to place him back on assist control mode of mechanical ventilation and did not go further to extubate. Labs today demonstrate is 8.6 and global was 8.1 lites are normal, renal profile is normal. Sputum cultures are negative blood cultures are - abdominal wound cultures are positive for MSSA. Progress note dated 02/17/2022. This is a 76-year-old male who was admitted on February 12, for her hypercapnic respiratory failure, CO2 narcosis, and CHF. The patient was intubated on February 13. He remains on the mechanical ventilator. The patient is on volume assist control, rate 20, tidal volume 500, FiO2 35%, and PEEP of 5. Blood gases show pO2 78, pCO2 40, and a pH is 7.47. The patient remains on propofol, at 40 mcg/kg/m, norepinephrine at 8 mcg/m, saline at 20 mL an hour, and vital high protein at 30 mL an hour, which is goal. The patient remains on Unasyn. White count 7.8, hemoglobin 7.7, hematocrit 27.6, and platelet count 282,000. Sodium 139, potassium 3.8, chlorides 104, CO2 26, BUN 20, and creatinine 0.83. Abdominal wound cultures are showing Staphylococcus aureus, and anaerobic gram- negative bacilli. Chest x-ray shows pulmonary vascular congestion, small to moderate bilateral pleural effusions, and cardiomegaly. Progress note dated 02/18/2022. 76-year-old male admitted on February 12, for hypercapnic respiratory failure, CO2 narcosis, and CHF. The patient was intubated the following day, on February 13. He remains on the mechanical ventilator. The patient is on volume assist control, rate 20, tidal volume 500, FiO2 85%, PEEP of 5. Blood gases show a PaO2 of 85, pCO2 41, and a pH is 7.46. The patient failed his daily interruption of sedation yesterday. We will attempted again today. Currently, norepinephrine is off, and propofol is off. He is getting saline at 20 mL an hour, and vital high protein at 30 mL an hour, which is goal. White count 9.8, hemoglobin 8, hematocrit 28.8, and platelet count 332,000. Sodium, potassium, chloride, CO2, anion gap, are all normal. BUN is 21, with a creatinine of 0.81. Albumin is 2.6. Chest x-ray shows diffuse airspace disease, and small effusions, consistent with CHF. Progress note dated 02/19/2022. 76-year-old male admitted on February 12 for hypercapnic respiratory failure and CHF. The patient has been having daily interruption of sedation and spontaneous breathing trials. We did not think he was ready yesterday. He currently remains on the ventilator. He is on the volume assist control, rate 20, tidal volume 500, FiO2 35%, and PEEP of 5. Blood gases show pO2 105, he CO2 39, and pH is 7.46. The patient's on propofol at 30 mcg/kg/m, norepinephrine at 5 mcg/m, saline at 10 mL an hour, and vital high protein at 30 mL an hour, which is goal. We will again attempt a DIS/SBT, today, on both pressure support and CPAP. White count 8.2, hemoglobin 7.6, hematocrit 27.7, and platelet count 288,000. Sodium 139, potassium 4, chlorides 103, CO2 26, BUN 28, and creatinine 0.91. The patient's chest x-ray suggests that the endotracheal tube should be pushed down about a centimeter or 2. In addition, the x-ray is consistent with either infiltrate and/or fluid overload. Progress note dated 02/20/2022. 76-year-old male admitted on February 12 for hypercapnic respiratory failure and CHF. The patient was extubated yesterday, February 19. Currently, he is on BiPAP, with settings of 15/5 and 50%. He remains on saline at 10 mL an hour. He also remains on Unasyn as his antibiotic. Laboratory data today includes a white count of 11.8, hemoglobin 8.2, hematocrit 31.6, and a platelet count 362,000. Sodium 139, potassium 4.5, chlorides 102, CO2 25, anion gap 12, BUN 35, and creatinine 1.09. Abdominal wound cultures show evidence of staph a ureus, and anaerobic gram-negative saline. No chest x-ray today as yet. Progress note dated 02/21/2022. 76-year-old male admitted on February 12 for hypercapnic respiratory failure and CHF. The patient was extubated on February 19. Unfortunately last night, the patient's respiratory status declined, and he needed to be reintubated. He was reintubated after midnight, on February 21. Currently, he is on volume assist control, rate 24, tidal volume 450, FiO2 60%, and PEEP of 5. Blood gases show pO2 145, pCO2 37, and pH is 7.41. Those blood gases were done on 80% and the FiO2 was then dropped to 60%. The patient's on norepinephrine at 20 mcg/m, propofol at 45 mcg/kg/m, and 0.9 at KVO. We'll resume tube feedings. I believe he was on vital high protein 30 mL an hour which was goal. We'll also place a PICC line, and given 1-2 L of lactated Ringer's, to see we can stop the norepin ephrine. The patient remains on Zosyn. White count 11.2, hemoglobin 8, hematocrit 30.4, and platelet count normal. Sodium 141, potassium 4.4, chlorides 104, CO2 22, BUN 52, creatinine 1.63. Albumin 2.9. Chest x-ray continues to show diffuse bilateral infiltrates, possibly consistent with either pneumonia, acute lung injury, or pulmonary edema. Objective - Vital Signs Vital signs: Vital Signs Temp 100.4 F H 02/21/22 04:00 Pulse 114 H 02/21/22 07:45 Resp 24 02/21/22 07:45 BP 111/67 02/21/22 07:15 Pulse Ox 99 02/21/22 07:45 FiO2 60 02/21/22 07:15 Intake & Output 02/20/22 02/21/22 02/21/22 18:59 06:59 18:59 Intake Total 176 484.148 25.219 Output Total 335 567 30 Balance -159 -82.852 -4.781 Weight 102 kg Intake: IV 176 276 16 0.9 KVO 110 110 10 Piperacillin-Tazobactam 3 100 .375 gm In Sodium Chloride 0.9% 100 ml @ 25 mls/hr IVPB Q8HR [facility] Rx# :[id number] pressure bag 66 66 6 Intake, IV Titration 208.148 9.219 Amount Norepinephrine 32 mg In 59.767 9.219 Sodium Chloride 0.9% 218 ml @ 0.05 MCG/KG/MIN 2. 344 mls/hr IV .Q24H [facility] Rx#:[id number] propofoL 1,000 mg In 148.381 Empty Bag 1 bag @ 5 MCG/ KG/MIN 3.266 mls/hr IV . Q24H [facility]AD Rx#:[id number] Output: Urine 335 567 30 Other: Voiding Method Indwelling Catheter Indwelling Catheter ABP, PAP, CO, CI - Last Documented Arterial Blood Pressure 101/52 - Exam No acute distress, reintubated, with an orally placed endotracheal tube and NG tube. Sedated. HEENT examination is grossly unremarkable. Neck supple. Full range of motion. No adenopathy thyromegaly or neck vein distention. Cardiovascular examination reveals regular rhythm rate. S1-S2 normal. No S3 or S4. A systolic murmur is noted. Heart sounds are distant. Heart rate 107 bpm. Lungs reveal scattered bilateral rhonchi. No wheezes. No crackles. Breath sounds equal bilaterally. Saturations are 99 %. Abdomen soft, with minimal bowel sounds. Surgical dressings are noted. Extremities are intact. No cyanosis clubbing or edema. Skin is without rash or lesion. Neurologic examination cannot be properly assessed. - Labs CBC & Chem 7: 02/21/22 03:43 02/21/22 03:43 Labs: Abnormal Lab Results - Last 24 Hours (Table) 02/20/22 02/20/22 02/20/22 Range/Units 11:58 17:33 23:00 WBC (3.8-10.6) k/uL RBC (4.30-5.90) m/uL Hgb (13.0-17.5) gm/dL Hct (39.0-53.0) % MCH (25.0-35.0) pg MCHC (31.0-37.0) g/dL RDW (11.5-15.5) % Plt Count (150-450) k/uL Neutrophils # (Manual) (1.3-7.7) k/uL Nucleated RBCs (0-0) /100 WBC ABG pH (7.35-7.45) ABG pCO2 (35-45) mmHg ABG pO2 (83-108) mmHg ABG Total CO2 (19-24) mmol/L ABG O2 Saturation (94-97) % ABG Hematocrit (34.0-46.0) % Hemoglobin (13.0-17.5) gm/dL BUN (9-20) mg/dL Creatinine (0.66-1.25) mg/dL Glucose (74-99) mg/dL POC Glucose (mg/dL) 148 H 141 H (70-110) mg/dL C-Reactive Protein (<1.0) mg/dL Total Protein (6.3-8.2) g/dL Albumin (3.5-5.0) g/dL Urine Protein 1+ H (Negative) Urine Ketones 1+ H (Negative) Urine Blood Large H (Negative) Ur Leukocyte Esterase Small H (Negative) Urine RBC >182 H (0-5) /hpf Urine WBC 10 H (0-5) /hpf Urine Bacteria Rare H (None) /hpf Hyaline Casts 36 H (0-2) /lpf Urine Mucus Rare H (None) /hpf 02/20/22 02/21/22 02/21/22 Range/Units 23:55 00:09 00:43 WBC (3.8-10.6) k/uL RBC (4.30-5.90) m/uL Hgb (13.0-17.5) gm/dL Hct (39.0-53.0) % MCH (25.0-35.0) pg MCHC (31.0-37.0) g/dL RDW (11.5-15.5) % Plt Count (150-450) k/uL Neutrophils # (Manual) (1.3-7.7) k/uL Nucleated RBCs (0-0) /100 WBC ABG pH 7.26 L (7.35-7.45) ABG pCO2 54 H (35-45) mmHg ABG pO2 (83-108) mmHg ABG Total CO2 26 H (19-24) mmol/L ABG O2 Saturation 97.9 H (94-97) % ABG Hematocrit 25 L (34.0-46.0) % Hemoglobin 8.1 L (13.0-17.5) gm/dL BUN (9-20) mg/dL Creatinine (0.66-1.25) mg/dL Glucose (74-99) mg/dL POC Glucose (mg/dL) 174 H 158 H (70-110) mg/dL C-Reactive Protein (<1.0) mg/dL Total Protein (6.3-8.2) g/dL Albumin (3.5-5.0) g/dL Urine Protein (Negative) Urine Ketones (Negative) Urine Blood (Negative) Ur Leukocyte Esterase (Negative) Urine RBC (0-5) /hpf Urine WBC (0-5) /hpf Urine Bacteria (None) /hpf Hyaline Casts (0-2) /lpf Urine Mucus (None) /hpf 02/21/22 02/21/22 02/21/22 Range/Units 01:04 03:43 03:43 WBC 11.2 H (3.8-10.6) k/uL RBC 3.64 L (4.30-5.90) m/uL Hgb 8.0 L (13.0-17.5) gm/dL Hct 30.4 L (39.0-53.0) % MCH 21.9 L (25.0-35.0) pg MCHC 26.3 L (31.0-37.0) g/dL RDW 18.6 H (11.5-15.5) % Plt Count 528 H (150-450) k/uL Neutrophils # (Manual) 9.40 H (1.3-7.7) k/uL Nucleated RBCs 4 H (0-0) /100 WBC ABG pH 7.31 L (7.35-7.45) ABG pCO2 47 H (35-45) mmHg ABG pO2 76 L (83-108) mmHg ABG Total CO2 25 H (19-24) mmol/L ABG O2 Saturation (94-97) % ABG Hematocrit 25 L (34.0-46.0) % Hemoglobin 8.0 L (13.0-17.5) gm/dL BUN 52 H (9-20) mg/dL Creatinine 1.63 H (0.66-1.25) mg/dL Glucose 160 H (74-99) mg/dL POC Glucose (mg/dL) (70-110) mg/dL C-Reactive Protein 4.2 H (<1.0) mg/dL Total Protein 5.5 L (6.3-8.2) g/dL Albumin 2.9 L (3.5-5.0) g/dL Urine Protein (Negative) Urine Ketones (Negative) Urine Blood (Negative) Ur Leukocyte Esterase (Negative) Urine RBC (0-5) /hpf Urine WBC (0-5) /hpf Urine Bacteria (None) /hpf Hyaline Casts (0-2) /lpf Urine Mucus (None) /hpf 02/21/22 02/21/22 Range/Units 04:58 05:56 WBC (3.8-10.6) k/uL RBC (4.30-5.90) m/uL Hgb (13.0-17.5) gm/dL Hct (39.0-53.0) % MCH (25.0-35.0) pg MCHC (31.0-37.0) g/dL RDW (11.5-15.5) % Plt Count (150-450) k/uL Neutrophils # (Manual) (1.3-7.7) k/uL Nucleated RBCs (0-0) /100 WBC ABG pH (7.35-7.45) ABG pCO2 (35-45) mmHg ABG pO2 145 H (83-108) mmHg ABG Total CO2 (19-24) mmol/L ABG O2 Saturation 100.0 H (94-97) % ABG Hematocrit 24 L (34.0-46.0) % Hemoglobin 7.8 L (13.0-17.5) gm/dL BUN (9-20) mg/dL Creatinine (0.66-1.25) mg/dL Glucose (74-99) mg/dL POC Glucose (mg/dL) 154 H (70-110) mg/dL C-Reactive Protein (<1.0) mg/dL Total Protein (6.3-8.2) g/dL Albumin (3.5-5.0) g/dL Urine Protein (Negative) Urine Ketones (Negative) Urine Blood (Negative) Ur Leukocyte Esterase (Negative) Urine RBC (0-5) /hpf Urine WBC (0-5) /hpf Urine Bacteria (None) /hpf Hyaline Casts (0-2) /lpf Urine Mucus (None) /hpf Assessment and Plan Assessment: Acute hypoxemic and hypercapnic respiratory failure, requiring intubation and mechanical ventilation on February 13, 2022, status post extubation on 02/19/2022. Acute respiratory failure, requiring reintubation on 02/21/2022. Probable sepsis/septic shock. Healthcare acquired pneumonia. Surgical site wound infection, secondary to methicillin sensitive Staphylococcus aureus. Acute kidney injury. Severe aortic stenosis. Chronic diastolic CHF. Type 2 diabetes mellitus. Chronic anemia. Benign essential hypertension. Chronic polycythemia. History of bowel resection, December 2021. Plan: Plan dated 02/17/2022. The patient will have a daily interruption of sedation. He may or may not be ready for a spontaneous breathing trial. Labs, x-rays, and medications are reviewed. He currently remains on propofol at 40 mcg/kg/m, and a modest dose of norepinephrine at 8 mcg/m. He is receiving tube feedings. He remains on Unasyn. We will continue to follow make recommendations along the way. Prognosis is certainly guarded. We do continue GI and DVT prophylaxis. Plan dated 02/18/2022. The patient will be given another daily interruption of sedation today. Hopefully, he'll do better than he did yesterday. Currently, norepinephrine has been weaned off. Remains on tube feedings. Blood gases are consistent with a mild metabolic alkalosis. Labs, x-rays, and medications are reviewed. Prognosis is certainly guarded. We will continue to follow the patient and make recommendations along the way. We continue GI and DVT prophylaxis. Plan dated 02/19/2022. The patient is again seen today in room 262. Labs, x-rays, and medications are reviewed. The patient remains on propofol at 30 mcg/kg/m, and norepinephrine at 5 mcg/m. We will attempt another daily interruption of sedation and spontaneously breathing trial. We are hoping that he is ready for extubation. This will depend on his mental status, his weaning parameters, and his cuff leak. We will continue to follow and make recommendations along the way. Plan dated 02/21/2020. The patient was extubated yesterday, February 19, to BiPAP. He remains on BiPAP with settings of 15/5 and 50%. Getting saline at 10 mL an hour. He remains on Unasyn for his surgical wound infections. The patient is still very tenuous. We'll continue to watch him in the intensive care unit. He may require reintubation. The patient will be trialed off of BiPAP this morning. Labs, x-rays, and medications are reviewed. Prognosis is certainly very guarded. We'll follow make recommendations along the way. Plan dated 02/21/2022. The patient was initially extubated on February 19. Unfortunately, for worsening respiratory status, he was reintubated on February 21. She remains on the ventilator. The patient is now on norepinephrine, and propofol. We will resume tube feedings. The patient will need a PICC line. In addition, we'll give him 1-2 L of lactated Ringer's to see we can wean off the norepinephrine. Additional recommendations and suggestions are forthcoming. Labs, x-rays, medications are all reviewed. Prognosis is certainly guarded. The patient may be headed towards a tracheostomy and PEG tube. Time with Patient: Greater than 30
[2022-02-21] MEDS: NOREPINEPHRINE 32 MG in SODIUM CHLORIDE 0.9% 218 ML IV SCH ×2 (09:16→23:53)
[2022-02-21] MEDS: CHLORHEXIDINE GLUCONATE 15 ML CUP MUCOUS MEM SCH ×2 (09:58→20:59)
[2022-02-21] MEDS: PANTOPRAZOLE 40 MG/10 ML VIAL IVP SCH (09:58)
[2022-02-21] MEDS: HEPARIN SODIUM,PORCINE/PF 5,000 UNIT/0.5 ML SYRINGE SQ SCH ×2 (09:58→21:00)
[2022-02-21] MEDS: LACTULOSE 20 GM/30 ML CUP PO SCH ×2 (09:58→21:00)
[2022-02-21] MEDS ORDERED: FUROSEMIDE 10 MG/ML 4 ML VIAL ONE (10:01)
[2022-02-21] MEDS: OXYBUTYNIN CHLORIDE 5 MG TAB PO SCH ×2 (10:02→21:33)
[2022-02-21] MEDS: FUROSEMIDE 10 MG/ML 4 ML VIAL IV SCH ×2 (10:02→21:00)
--- NOTE | 2022-02-21 10:02 | P.NPCON ---
History of Present Illness - Reason for Consult acute renal failure - History of Present Illness Reason for consultation: Acute kidney injury and PICC line clearance History of present illness: Patient is a 76-year-old male seen in consultation for acute kidney injury. Patient presented to the hospital on 02/12/2022 with confusion and abdominal discomfort. Patient is noted to have abdominal wounds with culture positive for staph. He is on antibiotics. Patient is also on Levophed. Patient was intu bated due to respiratory distress subsequently extubated and reintubated again this morning. He also received 1 L normal saline bolus during intubation this morning. Patient has history of systolic CHF with ejection fraction of 45% with severe aortic stenosis. Patient is receiving tube feeds which were started this morning. Patient is noted to be quite edematous. Blood pressure is currently s table. Patient does have history of diabetes. I don't see NSAIDs and his home medication list. He was taking oral diuretics at home. He should also receive a dose of IV Lasix yesterday. Urine output has been anywhere from 30-75 mL an hour. Patient's baseline creatinine is near 1 and is 1.63 today. Vital signs stable. On levophed. General: Resting in bed. HEENT: Intubated. LUNGS: Breath sounds decreased. HEART: Rate and Rhythm are regular. ABDOMEN: Soft, no distention. EXTREMITITES: 3+ edema. Past Medical History Past Medical History: Blood Disorder, Diabetes Mellitus, Hyperlipidemia, Hypertension Additional Past Medical History / Comment(s): Past rectal bleeds, polycythemia, NIDDM, recently had lower 5 teeth extracted, R lower leg edema, heart murmur, DDD with occasional back pain. History of Any Multi-Drug Resistant Organisms: None Reported Past Surgical History: Bowel Resection, Tonsillectomy Additional Past Surgical History / Comment(s): Colonoscopies, bilateral cataract removals/lens implants, R mastoid surgery at age 4 yrs. Past Anesthesia/Blood Transfusion Reactions: No Reported Reaction Past Psychological History: No Psychological Hx Reported Smoking Status: Former smoker Past Alcohol Use History: None Reported Past Drug Use History: None Reported - Past Family History Father History Unknown: Yes Family Medical History: No Reported History Additional Family Medical History / Comment(s): Father was healthy and lived into his 90s. Mother History Unknown: Yes Medications and Allergies Home Medications Medication Instructions Recorded Confirmed Type Aspirin EC [Ecotrin Low Dose] 81 mg PO HS 12/10/21 02/12/22 History Multivitamins, Thera [Multivitamin 1 tab PO HS 12/10/21 02/12/22 History (formulary)] [place]-3/Dha/Epa/Fish Oil [Fish Oil 1 cap PO HS 12/10/21 02/12/22 History 1,000 mg Softgel] Oxybutynin Chloride [Ditropan] 5 mg PO BID 12/10/21 02/12/22 History Pravastatin Sodium [Pravachol] 40 mg PO HS@199912/10/21 02/12/22 History Testosterone Cypionate 200 mg IM Q10D 12/10/21 02/12/22 History [Depo-Testosterone] metFORMIN HCL [Glucophage] 500 mg PO BID 12/10/21 02/12/22 History Pantoprazole [Protonix] 40 mg PO DAILY #30 tab 12/13/21 02/12/22 Rx Acetaminophen Tab [Tylenol Tab] 1,000 mg PO Q6H PRN 02/12/22 02/12/22 History Ferrocite 324mg 1 tab PO HS 02/12/22 02/12/22 History Furosemide [Lasix] 40 mg PO DAILY 02/12/22 02/12/22 History Healthshake 1 dose PO BID@0800,1600 02/12/22 02/12/22 History Melatonin 3 mg PO HS PRN 02/12/22 02/12/22 History Psyllium Husk 100% [Metamucil 1 tbsp PO DAILY 02/12/22 02/12/22 History Packet] Allergies Allergy/AdvReac Type Severity Reaction Status Date / Time No Known Allergies Allergy Verified 02/12/22 16:03 Physical Exam Vitals: Vital Signs Temp Pulse Resp BP Pulse Ox FiO2 02/21/22 09:00 96 24 99 60 02/21/22 08:45 112 H 24 112/63 99 02/21/22 08:30 108 H 24 112/63 99 02/21/22 08:15 100 24 112/63 99 02/21/22 08:00 99.5 F 94 24 111/67 99 60 02/21/22 07:45 114 H 24 99 02/21/22 07:35 93 02/21/22 07:30 101 H 24 99 02/21/22 07:21 112 H 02/21/22 07:15 123 H 24 111/67 98 60 02/21/22 07:00 115 H 24 97 02/21/22 06:45 124 H 24 97 02/21/22 06:30 113 H 24 97 02/21/22 06:15 109 H 25 H 120/83 96 02/21/22 06:00 124 H 25 H 96 02/21/22 05:56 60 02/21/22 05:45 116 H 25 H 99 02/21/22 05:30 109 H 25 H 99 02/21/22 05:15 25 H 119/73 98 02/21/22 05:00 24 98 02/21/22 04:45 24 98 02/21/22 04:32 116 H 02/21/22 04:30 113 H 24 99 02/21/22 04:20 115 H 02/21/22 04:15 117 H 25 H 117/77 93 L 02/21/22 04:11 80 02/21/22 04:00 100.4 F H 121 H 24 111/62 93 L 80 02/21/22 03:45 128 H 26 H 94 L 02/21/22 03:30 115 H 24 94 L 02/21/22 03:15 113 H 25 H 111/62 93 L 02/21/22 03:00 120 H 25 H 93 L 02/21/22 02:45 116 H 24 92 L 02/21/22 02:30 118 H 25 H 92 L 02/21/22 02:15 120 H 24 92 L 02/21/22 02:00 126 H 25 H 91 L 02/21/22 01:45 115 H 25 H 91 L 02/21/22 01:30 116 H 24 92 L 02/21/22 01:15 120 H 24 91 L 02/21/22 01:14 80 02/21/22 01:00 123 H 24 98/60 93 L 02/21/22 00:45 124 H 24 98/60 92 L 100 02/21/22 00:44 100 02/21/22 00:33 100 02/21/22 00:30 104 H 24 91 L 02/21/22 00:15 117 H 18 92 L 100 02/21/22 00:13 100 02/21/22 00:05 80 02/21/22 00:00 101.2 F H 112 H 13 106/75 91 L 80 02/20/22 23:35 114 H 33 H 02/20/22 23:20 114 H 34 H 100 02/20/22 23:00 113 H 32 H 93/70 95 02/20/22 22:00 114 H 28 H 101/63 95 02/20/22 21:00 112 H 30 H 98/73 95 02/20/22 20:20 116 H 02/20/22 20:10 112 H 40 02/20/22 20:00 101.5 F H 112 H 38 H 103/70 96 40 02/20/22 18:00 114 H 35 H 97/52 95 02/20/22 17:00 115 H 18 93/33 91 L 02/20/22 16:00 97.8 F 116 H 18 90/39 95 40 02/20/22 15:20 114 H 02/20/22 15:14 115 H 02/20/22 15:11 50 02/20/22 15:00 117 H 21 99/61 95 02/20/22 14:00 115 H 18 103/60 02/20/22 13:00 115 H 34 H 108/65 94 L 02/20/22 12:00 98.5 F 114 H 34 H 99/60 94 L 40 02/20/22 11:15 115 H 02/20/22 11:07 113 H 02/20/22 11:00 118 H 35 H 99/61 94 L 02/20/22 10:59 50 02/20/22 10:00 116 H 22 104/65 93 L Intake and Output 02/20/22 02/21/22 02/21/22 22:59 06:59 14:59 Intake Total 96 298.971 1917.681 Output Total 350 337 180 Balance -254 99.148 1011.681 Intake: IV 96 228 1048 0.9 KVO 60 80 30 LR bolus 1000 Piperacillin-Tazobactam 3 100 .375 gm In Sodium Chloride 0.9% 100 ml @ 25 mls/hr IVPB Q8HR [facility] Rx# :[id number] pressure bag 36 48 18 Intake, IV Titration 208.148 83.681 Amount Norepinephrine 32 mg In 59.767 9.219 Sodium Chloride 0.9% 218 ml @ 0.05 MCG/KG/MIN 2. 344 mls/hr IV .Q24H [facility] Rx#:[id number] propofoL 1,000 mg In 148.381 74.462 Empty Bag 1 bag @ 5 MCG/ KG/MIN 3.266 mls/hr IV . Q24H [facility] Rx#:[id number] Tube Feeding 60 Output: Urine 350 337 180 Other: Voiding Method Indwelling Catheter Indwelling Catheter Weight 102 kg ABP, PAP, CO, CI - Last 8 Hours Arterial Blood Pressure 110/51 Arterial Blood Pressure 113/55 Arterial Blood Pressure 115/54 Arterial Blood Pressure 116/59 Arterial Blood Pressure 111/52 Arterial Blood Pressure 101/52 Arterial Blood Pressure 106/56 Arterial Blood Pressure 102/51 Arterial Blood Pressure 105/55 Arterial Blood Pressure 114/52 Arterial Blood Pressure 110/57 Arterial Blood Pressure 113/56 Arterial Blood Pressure 122/59 Arterial Blood Pressure 105/49 Arterial Blood Pressure 117/59 Arterial Blood Pressure 118/58 Arterial Blood Pressure 114/57 Arterial Blood Pressure 121/60 Arterial Blood Pressure 116/59 Arterial Blood Pressure 112/56 Arterial Blood Pressure 123/65 Arterial Blood Pressure 112/61 Arterial Blood Pressure 117/63 Arterial Blood Pressure 111/66 Arterial Blood Pressure 116/59 Arterial Blood Pressure 118/63 Arterial Blood Pressure 103/56 Arterial Blood Pressure 112/61 Results - Lab Results Most recent lab results ABG pH 7.41 (7.35-7.45) 02/21/22 04:58 ABG pCO2 37 mmHg (35-45) 02/21/22 04:58 ABG pO2 145 mmHg (83-108) H 02/21/22 04:58 ABG HCO3 23 mmol/L (21-25) 02/21/22 04:58 ABG O2 Saturation 100.0 % (94-97) H 02/21/22 04:58 Calcium 8.7 mg/dL (8.4-10.2) 02/21/22 03:43 Magnesium 2.0 mg/dL (1.6-2.3) 02/18/22 05:40 02/21/22 03:43 02/21/22 03:43 Assessment and Plan Plan: Assessment: 1. Acute kidney injury secondary to ATN secondary to septic shock. Baseline creatinine near 1 and is 1.63 today. No hydronephrosis noted on CAT scan done this admission. 2. Septic shock secondary to abdominal wall infection as well as pneumonia. ID following. 3. Acute on chronic systolic CHF with ejection fraction of 40-45% with severe aortic stenosis. 4. Acute hypoxic respiratory failure. 5. Diabetes mellitus. 6. Volume overload. Plan: Add IV Lasix 40 mg twice daily. Wean FiO2 and vasopressors. Avoid nephrotoxins. Continue to monitor renal function and urine output. Okay to place PICC line in the dominant arm. Thank you for the consultation. I will continue to follow the patient with you during his hospital stay.
[2022-02-21] MEDS: COLLAGENASE 250 UNIT/GM OINTMENT 30 GM TUBE TOPICAL SCH (10:04)
--- NOTE | 2022-02-21 10:05 | P.PN ---
Progress Note - Text Progress Note Date: 02/21/22 Patient intubated and sedated. Spoke with patient's daughter, Carolyn, via telephone. Attempted to schedule family meeting to discuss goals of care. Carolyn is working late today and is unable to come in. Offered to meet with her tomorrow, Thursday. She stated she has to work Thursday as well. She also would like her sister, Renetta, present for the meeting who is currently out of town. Her sister will be back in town by Thursday. Family meeting scheduled for Thursday02/24/22 at 11:00am. Code status discussed with Carolyn. She stated she will call her sister to clarify their wishes for their father and call back. Awaiting call back. Carolyn called back and stated that they would like to keep him intubated until our meeting. They do not want chest compressions, defibrillation, or medications given in the event of a cardiac arrest. RN notified. Thank you for this consult Shasta [facility] Spectralink [phone] Email: [email or web address]
[2022-02-21] MEDS ORDERED: DEXTROSE 5% IN WATER 100 ML with AMIODARONE 150 MG IV ONE (10:30)
[2022-02-21] MEDS ORDERED: AMIODARONE 360 MG in DEXTROSE 5% IN WATER 200 ML IV ONE ×4 (10:45→18:45)
--- NOTE | 2022-02-21 10:45 | P.PN ---
Subjective Progress Note Date: 02/21/22 Patient was seen and examined. Unfortunately, patient was reintubated early this morning. Ventilator settings rate 24, tidal volume 450, FiO2 60%, PEEP of 5. Patient noted to be in atrial flutter heart rate 180-200. BP 50s/40s, MAP low 60. General: Intubated Derm: warm, dry Head: atraumatic, normocephalic, symmetric Eyes: EOMI, no lid lag, anicteric sclera Mouth: no lip lesion, mucus membranes moist Cardiovascular: Tachycardic, irregular, systolic ejection murmur Lungs: Coarse breath sounds bilaterally, ventilator dependent Abdominal: soft, abdominal dressing c/d/i Ext: no gross muscle atrophy, no edema, no contractures Neuro: Unable to accurately assess Psych: Unable to accurately assess Assessment/plan: Atrial fibrillation with RVR - Bolus amiodarone 150 mg IV - Start amiodarone drip - Obtain magnesium level - Cardiology on board Acute Hypoxemic and Hypercarbic Respiratory Failure Septic Shock with Toxic/Metabolic Encephalopathy Hospital Acquired Pneumonia Surgical Site Infection s/p Bowel Resection Acute Kidney Injury - Extubated 02/19, reintubated 02/21/2022 - Admit to ICU, telemetry - ICU, ID consultation appreciated - Wound Care consult - Surgery consult - Nephrology consult - Bronchodilators - Zosyn - f/u BCx - NGTD, Wound Cx - staph aureus - Lasix 40 mg IV today for 1 - Levophed - Monitor I/Os, UOP - Daily labs Severe Aortic Stenosis Chronic Diastolic Heart Failure - Strict I/Os, daily weights - Cardiology on board - Echocardiogram shows EF of 45% with moderate concentric LVH, severe calcification of the mitral valve, severe aortic stenosis Normocytic anemia -Stable DM - Insulin sliding scale SC Q6H FULL CODE DVT PPX heparin SC BID Objective - Vital Signs Vital signs: Vital Signs Temp 99.5 F 02/21/22 08:00 Pulse 114 H 02/21/22 10:00 Resp 27 H 02/21/22 10:00 BP 112/63 02/21/22 08:45 Pulse Ox 88 L 02/21/22 10:00 FiO2 60 02/21/22 10:00 Intake & Output 02/20/22 02/21/22 02/21/22 18:59 06:59 18:59 Intake Total 176 811.393 1416.681 Output Total 335 567 255 Balance -159 -82.852 982.681 Weight 102 kg Intake: IV 523 967 3245 0.9 KVO 110 110 40 LR bolus 1000 Piperacillin-Tazobactam 3 100 .375 gm In Sodium Chloride 0.9% 100 ml @ 25 mls/hr IVPB Q8HR [facility] Rx# :[id number] pressure bag 66 66 24 Intake, IV Titration 208.148 83.681 Amount Norepinephrine 32 mg In 59.767 9.219 Sodium Chloride 0.9% 218 ml @ 0.05 MCG/KG/MIN 2. 344 mls/hr IV .Q24H [facility] Rx#:[id number] propofoL 1,000 mg In 148.381 74.462 Empty Bag 1 bag @ 5 MCG/ KG/MIN 3.266 mls/hr IV . Q24H [facility] Rx#:[id number] Tube Feeding 90 Output: Urine 335 567 255 Other: Voiding Method Indwelling Catheter Indwelling Catheter ABP, PAP, CO, CI - Last Documented Arterial Blood Pressure 98/49 - Labs CBC & Chem 7: 02/21/22 03:43 02/21/22 03:43 Labs: Abnormal Lab Results - Last 24 Hours (Table) 02/20/22 02/20/22 02/20/22 Range/Units 11:58 17:33 23:00 WBC (3.8-10.6) k/uL RBC (4.30-5.90) m/uL Hgb (13.0-17.5) gm/dL Hct (39.0-53.0) % MCH (25.0-35.0) pg MCHC (31.0-37.0) g/dL RDW (11.5-15.5) % Plt Count (150-450) k/uL Neutrophils # (Manual) (1.3-7.7) k/uL Nucleated RBCs (0-0) /100 WBC PT (9.0-12.0) sec INR (<1.2) ABG pH (7.35-7.45) ABG pCO2 (35-45) mmHg ABG pO2 (83-108) mmHg ABG Total CO2 (19-24) mmol/L ABG O2 Saturation (94-97) % ABG Hematocrit (34.0-46.0) % Hemoglobin (13.0-17.5) gm/dL BUN (9-20) mg/dL Creatinine (0.66-1.25) mg/dL Glucose (74-99) mg/dL POC Glucose (mg/dL) 148 H 141 H (70-110) mg/dL C-Reactive Protein (<1.0) mg/dL Total Protein (6.3-8.2) g/dL Albumin (3.5-5.0) g/dL Procalcitonin (0.02-0.09) ng/mL Urine Protein 1+ H (Negative) Urine Ketones 1+ H (Negative) Urine Blood Large H (Negative) Ur Leukocyte Esterase Small H (Negative) Urine RBC >182 H (0-5) /hpf Urine WBC 10 H (0-5) /hpf Urine Bacteria Rare H (None) /hpf Hyaline Casts 36 H (0-2) /lpf Urine Mucus Rare H (None) /hpf 02/20/22 02/21/22 02/21/22 Range/Units 23:55 00:09 00:43 WBC (3.8-10.6) k/uL RBC (4.30-5.90) m/uL Hgb (13.0-17.5) gm/dL Hct (39.0-53.0) % MCH (25.0-35.0) pg MCHC (31.0-37.0) g/dL RDW (11.5-15.5) % Plt Count (150-450) k/uL Neutrophils # (Manual) (1.3-7.7) k/uL Nucleated RBCs (0-0) /100 WBC PT (9.0-12.0) sec INR (<1.2) ABG pH 7.26 L (7.35-7.45) ABG pCO2 54 H (35-45) mmHg ABG pO2 (83-108) mmHg ABG Total CO2 26 H (19-24) mmol/L ABG O2 Saturation 97.9 H (94-97) % ABG Hematocrit 25 L (34.0-46.0) % Hemoglobin 8.1 L (13.0-17.5) gm/dL BUN (9-20) mg/dL Creatinine (0.66-1.25) mg/dL Glucose (74-99) mg/dL POC Glucose (mg/dL) 174 H 158 H (70-110) mg/dL C-Reactive Protein (<1.0) mg/dL Total Protein (6.3-8.2) g/dL Albumin (3.5-5.0) g/dL Procalcitonin (0.02-0.09) ng/mL Urine Protein (Negative) Urine Ketones (Negative) Urine Blood (Negative) Ur Leukocyte Esterase (Negative) Urine RBC (0-5) /hpf Urine WBC (0-5) /hpf Urine Bacteria (None) /hpf Hyaline Casts (0-2) /lpf Urine Mucus (None) /hpf 02/21/22 02/21/22 02/21/22 Range/Units 01:04 03:43 03:43 WBC 11.2 H (3.8-10.6) k/uL RBC 3.64 L (4.30-5.90) m/uL Hgb 8.0 L (13.0-17.5) gm/dL Hct 30.4 L (39.0-53.0) % MCH 21.9 L (25.0-35.0) pg MCHC 26.3 L (31.0-37.0) g/dL RDW 18.6 H (11.5-15.5) % Plt Count 528 H (150-450) k/uL Neutrophils # (Manual) 9.40 H (1.3-7.7) k/uL Nucleated RBCs 4 H (0-0) /100 WBC PT (9.0-12.0) sec INR (<1.2) ABG pH 7.31 L (7.35-7.45) ABG pCO2 47 H (35-45) mmHg ABG pO2 76 L (83-108) mmHg ABG Total CO2 25 H (19-24) mmol/L ABG O2 Saturation (94-97) % ABG Hematocrit 25 L (34.0-46.0) % Hemoglobin 8.0 L (13.0-17.5) gm/dL BUN (9-20) mg/dL Creatinine (0.66-1.25) mg/dL Glucose (74-99) mg/dL POC Glucose (mg/dL) (70-110) mg/dL C-Reactive Protein (<1.0) mg/dL Total Protein (6.3-8.2) g/dL Albumin (3.5-5.0) g/dL Procalcitonin 0.66 H (0.02-0.09) ng/mL Urine Protein (Negative) Urine Ketones (Negative) Urine Blood (Negative) Ur Leukocyte Esterase (Negative) Urine RBC (0-5) /hpf Urine WBC (0-5) /hpf Urine Bacteria (None) /hpf Hyaline Casts (0-2) /lpf Urine Mucus (None) /hpf 02/21/22 02/21/22 02/21/22 Range/Units 03:43 04:58 05:56 WBC (3.8-10.6) k/uL RBC (4.30-5.90) m/uL Hgb (13.0-17.5) gm/dL Hct (39.0-53.0) % MCH (25.0-35.0) pg MCHC (31.0-37.0) g/dL RDW (11.5-15.5) % Plt Count (150-450) k/uL Neutrophils # (Manual) (1.3-7.7) k/uL Nucleated RBCs (0-0) /100 WBC PT (9.0-12.0) sec INR (<1.2) ABG pH (7.35-7.45) ABG pCO2 (35-45) mmHg ABG pO2 145 H (83-108) mmHg ABG Total CO2 (19-24) mmol/L ABG O2 Saturation 100.0 H (94-97) % ABG Hematocrit 24 L (34.0-46.0) % Hemoglobin 7.8 L (13.0-17.5) gm/dL BUN 52 H (9-20) mg/dL Creatinine 1.63 H (0.66-1.25) mg/dL Glucose 160 H (74-99) mg/dL POC Glucose (mg/dL) 154 H (70-110) mg/dL C-Reactive Protein 4.2 H (<1.0) mg/dL Total Protein 5.5 L (6.3-8.2) g/dL Albumin 2.9 L (3.5-5.0) g/dL Procalcitonin (0.02-0.09) ng/mL Urine Protein (Negative) Urine Ketones (Negative) Urine Blood (Negative) Ur Leukocyte Esterase (Negative) Urine RBC (0-5) /hpf Urine WBC (0-5) /hpf Urine Bacteria (None) /hpf Hyaline Casts (0-2) /lpf Urine Mucus (None) /hpf 02/21/22 Range/Units 07:30 WBC (3.8-10.6) k/uL RBC (4.30-5.90) m/uL Hgb (13.0-17.5) gm/dL Hct (39.0-53.0) % MCH (25.0-35.0) pg MCHC (31.0-37.0) g/dL RDW (11.5-15.5) % Plt Count (150-450) k/uL Neutrophils # (Manual) (1.3-7.7) k/uL Nucleated RBCs (0-0) /100 WBC PT 12.5 H (9.0-12.0) sec INR 1.2 H (<1.2) ABG pH (7.35-7.45) ABG pCO2 (35-45) mmHg ABG pO2 (83-108) mmHg ABG Total CO2 (19-24) mmol/L ABG O2 Saturation (94-97) % ABG Hematocrit (34.0-46.0) % Hemoglobin (13.0-17.5) gm/dL BUN (9-20) mg/dL Creatinine (0.66-1.25) mg/dL Glucose (74-99) mg/dL POC Glucose (mg/dL) (70-110) mg/dL C-Reactive Protein (<1.0) mg/dL Total Protein (6.3-8.2) g/dL Albumin (3.5-5.0) g/dL Procalcitonin (0.02-0.09) ng/mL Urine Protein (Negative) Urine Ketones (Negative) Urine Blood (Negative) Ur Leukocyte Esterase (Negative) Urine RBC (0-5) /hpf Urine WBC (0-5) /hpf Urine Bacteria (None) /hpf Hyaline Casts (0-2) /lpf Urine Mucus (None) /hpf Microbiology - Last 24 Hours (Table) 02/21/22 04:28 Sputum Culture - Preliminary Sputum
[2022-02-21 12:19] LABS: Glucose,Whole Blood 228 mg/dL (70-110)
--- NOTE | 2022-02-21 14:26 | P.PN ---
Subjective Progress Note Date: 02/21/22 CHIEF COMPLAINT: Respiratory failure HISTORY OF PRESENT ILLNESS: Patient required to be reintubated this morning due to worsening respiratory status. Patient being treated for pneumonia and CHF. Patient did have A. fib with RVR requiring IV amiodarone. Surgical service following regards to patient's abdominal wound which is colonized with MSSA. Patient continues to have fevers temp of 101 last night. And tachycardic. White count 11.2. Patient requiring Levophed and propofol. Patient was seen by palliative care service and CODE STATUS has been changed to no code. Patient seen and examined with Dr. Tran PHYSICAL EXAM: VITAL SIGNS: Reviewed. GENERAL: Intubated ABDOMEN: Soft. Obese. Distended. Clearish drainage from abdominal incision wounds. ASSESSMENT: 1. Abdominal wound. Per Dr. tran the MSSA growing in the abdominal wound is likely colonization 2. 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 History of surgical site infection during last hospitalization 4. Constipation PLAN: -Continue local wound care to abdominal wound -Continue antibiotics -No surgical intervention planned -Continue ICU management and supportive care -Continue tube feed for nutrition support -Continue lactulose for constipation Physician Clothing Examiner note has been reviewed by physician. Signing provider agrees with the documented findings, assessment, and plan of care. Objective - Vital Signs Vital signs: Vital Signs Temp 98.7 F 02/21/22 12:00 Pulse 118 H 02/21/22 13:45 Resp 24 02/21/22 13:45 BP 85/59 02/21/22 12:30 Pulse Ox 100 02/21/22 13:45 FiO2 80 02/21/22 13:00 Intake & Output 02/20/22 02/21/22 02/21/22 18:59 06:59 18:59 Intake Total 176 084.091 1948.681 Output Total 335 567 755 Balance -159 -82.852 680.681 Weight 102 kg 102 kg Intake: IV 780 385 7685 0.9 KVO 110 110 100 LR bolus 1000 Piperacillin-Tazobactam 3 100 .375 gm In Sodium Chloride 0.9% 100 ml @ 25 mls/hr IVPB Q8HR [facility] Rx# :[id number] pressure bag 66 66 42 Intake, IV Titration 208.148 83.681 Amount Norepinephrine 32 mg In 59.767 9.219 Sodium Chloride 0.9% 218 ml @ 0.05 MCG/KG/MIN 2. 344 mls/hr IV .Q24H [facility] Rx#:[id number] propofoL 1,000 mg In 148.381 74.462 Empty Bag 1 bag @ 5 MCG/ KG/MIN 3.266 mls/hr IV . Q24H [facility] Rx#:[id number] Tube Feeding 210 Output: Urine 335 567 755 Other: Voiding Method Indwelling Catheter Indwelling Catheter ABP, PAP, CO, CI - Last Documented Arterial Blood Pressure 101/55 - Labs CBC & Chem 7: 02/21/22 03:43 02/21/22 03:43 Labs: Abnormal Lab Results - Last 24 Hours (Table) 02/20/22 02/20/22 02/20/22 Range/Units 17:33 23:00 23:55 WBC (3.8-10.6) k/uL RBC (4.30-5.90) m/uL Hgb (13.0-17.5) gm/dL Hct (39.0-53.0) % MCH (25.0-35.0) pg MCHC (31.0-37.0) g/dL RDW (11.5-15.5) % Plt Count (150-450) k/uL Neutrophils # (Manual) (1.3-7.7) k/uL Nucleated RBCs (0-0) /100 WBC PT (9.0-12.0) sec INR (<1.2) ABG pH 7.26 L (7.35-7.45) ABG pCO2 54 H (35-45) mmHg ABG pO2 (83-108) mmHg ABG Total CO2 26 H (19-24) mmol/L ABG O2 Saturation 97.9 H (94-97) % ABG Hematocrit 25 L (34.0-46.0) % Hemoglobin 8.1 L (13.0-17.5) gm/dL BUN (9-20) mg/dL Creatinine (0.66-1.25) mg/dL Glucose (74-99) mg/dL POC Glucose (mg/dL) 141 H (70-110) mg/dL C-Reactive Protein (<1.0) mg/dL Total Protein (6.3-8.2) g/dL Albumin (3.5-5.0) g/dL Procalcitonin (0.02-0.09) ng/mL Urine Protein 1+ H (Negative) Urine Ketones 1+ H (Negative) Urine Blood Large H (Negative) Ur Leukocyte Esterase Small H (Negative) Urine RBC >182 H (0-5) /hpf Urine WBC 10 H (0-5) /hpf Urine Bacteria Rare H (None) /hpf Hyaline Casts 36 H (0-2) /lpf Urine Mucus Rare H (None) /hpf 02/21/22 02/21/22 02/21/22 Range/Units 00:09 00:43 01:04 WBC (3.8-10.6) k/uL RBC (4.30-5.90) m/uL Hgb (13.0-17.5) gm/dL Hct (39.0-53.0) % MCH (25.0-35.0) pg MCHC (31.0-37.0) g/dL RDW (11.5-15.5) % Plt Count (150-450) k/uL Neutrophils # (Manual) (1.3-7.7) k/uL Nucleated RBCs (0-0) /100 WBC PT (9.0-12.0) sec INR (<1.2) ABG pH 7.31 L (7.35-7.45) ABG pCO2 47 H (35-45) mmHg ABG pO2 76 L (83-108) mmHg ABG Total CO2 25 H (19-24) mmol/L ABG O2 Saturation (94-97) % ABG Hematocrit 25 L (34.0-46.0) % Hemoglobin 8.0 L (13.0-17.5) gm/dL BUN (9-20) mg/dL Creatinine (0.66-1.25) mg/dL Glucose (74-99) mg/dL POC Glucose (mg/dL) 174 H 158 H (70-110) mg/dL C-Reactive Protein (<1.0) mg/dL Total Protein (6.3-8.2) g/dL Albumin (3.5-5.0) g/dL Procalcitonin (0.02-0.09) ng/mL Urine Protein (Negative) Urine Ketones (Negative) Urine Blood (Negative) Ur Leukocyte Esterase (Negative) Urine RBC (0-5) /hpf Urine WBC (0-5) /hpf Urine Bacteria (None) /hpf Hyaline Casts (0-2) /lpf Urine Mucus (None) /hpf 02/21/22 02/21/22 02/21/22 Range/Units 03:43 03:43 03:43 WBC 11.2 H (3.8-10.6) k/uL RBC 3.64 L (4.30-5.90) m/uL Hgb 8.0 L (13.0-17.5) gm/dL Hct 30.4 L (39.0-53.0) % MCH 21.9 L (25.0-35.0) pg MCHC 26.3 L (31.0-37.0) g/dL RDW 18.6 H (11.5-15.5) % Plt Count 528 H (150-450) k/uL Neutrophils # (Manual) 9.40 H (1.3-7.7) k/uL Nucleated RBCs 4 H (0-0) /100 WBC PT (9.0-12.0) sec INR (<1.2) ABG pH (7.35-7.45) ABG pCO2 (35-45) mmHg ABG pO2 (83-108) mmHg ABG Total CO2 (19-24) mmol/L ABG O2 Saturation (94-97) % ABG Hematocrit (34.0-46.0) % Hemoglobin (13.0-17.5) gm/dL BUN 52 H (9-20) mg/dL Creatinine 1.63 H (0.66-1.25) mg/dL Glucose 160 H (74-99) mg/dL POC Glucose (mg/dL) (70-110) mg/dL C-Reactive Protein 4.2 H (<1.0) mg/dL Total Protein 5.5 L (6.3-8.2) g/dL Albumin 2.9 L (3.5-5.0) g/dL Procalcitonin 0.66 H (0.02-0.09) ng/mL Urine Protein (Negative) Urine Ketones (Negative) Urine Blood (Negative) Ur Leukocyte Esterase (Negative) Urine RBC (0-5) /hpf Urine WBC (0-5) /hpf Urine Bacteria (None) /hpf Hyaline Casts (0-2) /lpf Urine Mucus (None) /hpf 02/21/22 02/21/22 02/21/22 Range/Units 04:58 05:56 07:30 WBC (3.8-10.6) k/uL RBC (4.30-5.90) m/uL Hgb (13.0-17.5) gm/dL Hct (39.0-53.0) % MCH (25.0-35.0) pg MCHC (31.0-37.0) g/dL RDW (11.5-15.5) % Plt Count (150-450) k/uL Neutrophils # (Manual) (1.3-7.7) k/uL Nucleated RBCs (0-0) /100 WBC PT 12.5 H (9.0-12.0) sec INR 1.2 H (<1.2) ABG pH (7.35-7.45) ABG pCO2 (35-45) mmHg ABG pO2 145 H (83-108) mmHg ABG Total CO2 (19-24) mmol/L ABG O2 Saturation 100.0 H (94-97) % ABG Hematocrit 24 L (34.0-46.0) % Hemoglobin 7.8 L (13.0-17.5) gm/dL BUN (9-20) mg/dL Creatinine (0.66-1.25) mg/dL Glucose (74-99) mg/dL POC Glucose (mg/dL) 154 H (70-110) mg/dL C-Reactive Protein (<1.0) mg/dL Total Protein (6.3-8.2) g/dL Albumin (3.5-5.0) g/dL Procalcitonin (0.02-0.09) ng/mL Urine Protein (Negative) Urine Ketones (Negative) Urine Blood (Negative) Ur Leukocyte Esterase (Negative) Urine RBC (0-5) /hpf Urine WBC (0-5) /hpf Urine Bacteria (None) /hpf Hyaline Casts (0-2) /lpf Urine Mucus (None) /hpf 02/21/22 Range/Units 12:17 WBC (3.8-10.6) k/uL RBC (4.30-5.90) m/uL Hgb (13.0-17.5) gm/dL Hct (39.0-53.0) % MCH (25.0-35.0) pg MCHC (31.0-37.0) g/dL RDW (11.5-15.5) % Plt Count (150-450) k/uL Neutrophils # (Manual) (1.3-7.7) k/uL Nucleated RBCs (0-0) /100 WBC PT (9.0-12.0) sec INR (<1.2) ABG pH (7.35-7.45) ABG pCO2 (35-45) mmHg ABG pO2 (83-108) mmHg ABG Total CO2 (19-24) mmol/L ABG O2 Saturation (94-97) % ABG Hematocrit (34.0-46.0) % Hemoglobin (13.0-17.5) gm/dL BUN (9-20) mg/dL Creatinine (0.66-1.25) mg/dL Glucose (74-99) mg/dL POC Glucose (mg/dL) 228 H (70-110) mg/dL C-Reactive Protein (<1.0) mg/dL Total Protein (6.3-8.2) g/dL Albumin (3.5-5.0) g/dL Procalcitonin (0.02-0.09) ng/mL Urine Protein (Negative) Urine Ketones (Negative) Urine Blood (Negative) Ur Leukocyte Esterase (Negative) Urine RBC (0-5) /hpf Urine WBC (0-5) /hpf Urine Bacteria (None) /hpf Hyaline Casts (0-2) /lpf Urine Mucus (None) /hpf Microbiology - Last 24 Hours (Table) 02/21/22 04:28 Sputum Culture - Preliminary Sputum
--- NOTE | 2022-02-21 14:49 | P.PN ---
Subjective Progress Note Date: 02/21/22 Principal diagnosis: Possible sepsis Patient is a 76-year-old male with a past medical history again for diverticulitis recurrent GI bleed in this patient who is status post laparotomy and no anterior resection on 01/15/2022 [facility] the patient was brought for evaluation of confusion and increasing shortness of breath patient did not get intubated. The patient was extubated 02/19/2022, patient did have worsening respiratory status and ended up getting reintubated on 02/21/2022 On today's evaluation that is 02/21/2022, the patient continues to be afebrile, the patient is sedated on the vent and FiO2 is currently at 80% patient is requiring a low-dose pressor support and no significant purulent secretion through the ET or diarrhea reported by the nursing staff Objective - Vital Signs Vital signs: Vital Signs Temp 99.5 F 02/21/22 08:00 Pulse 172 H 02/21/22 11:00 Resp 26 H 02/21/22 11:00 BP 112/63 02/21/22 08:45 Pulse Ox 92 L 02/21/22 10:45 FiO2 80 02/21/22 11:18 Intake & Output 02/20/22 02/21/22 02/21/22 18:59 06:59 18:59 Intake Total 176 874.054 7914.681 Output Total 335 567 605 Balance -159 -82.852 744.681 Weight 102 kg 102 kg Intake: IV 870 457 1645 0.9 KVO 110 110 80 LR bolus 1000 Piperacillin-Tazobactam 3 100 .375 gm In Sodium Chloride 0.9% 100 ml @ 25 mls/hr IVPB Q8HR [facility] Rx# :[id number] pressure bag 66 66 36 Intake, IV Titration 208.148 83.681 Amount Norepinephrine 32 mg In 59.767 9.219 Sodium Chloride 0.9% 218 ml @ 0.05 MCG/KG/MIN 2. 344 mls/hr IV .Q24H [facility] Rx#:[id number] propofoL 1,000 mg In 148.381 74.462 Empty Bag 1 bag @ 5 MCG/ KG/MIN 3.266 mls/hr IV . Q24H [facility] Rx#:[id number] Tube Feeding 150 Output: Urine 335 567 605 Other: Voiding Method Indwelling Catheter Indwelling Catheter ABP, PAP, CO, CI - Last Documented Arterial Blood Pressure 86/46 - Exam GENERAL DESCRIPTION: An elderly male intubated on the vent RESPIRATORY SYSTEM: Unlabored breathing , coarse breath sounds bilaterally HEART: S1 S2 regular rate and rhythm , ABDOMEN: Soft , no tenderness EXTREMITIES: 2plus edema feet - Labs CBC & Chem 7: 02/21/22 03:43 02/21/22 03:43 Labs: Abnormal Lab Results - Last 24 Hours (Table) 02/20/22 02/20/22 02/20/22 Range/Units 17:33 23:00 23:55 WBC (3.8-10.6) k/uL RBC (4.30-5.90) m/uL Hgb (13.0-17.5) gm/dL Hct (39.0-53.0) % MCH (25.0-35.0) pg MCHC (31.0-37.0) g/dL RDW (11.5-15.5) % Plt Count (150-450) k/uL Neutrophils # (Manual) (1.3-7.7) k/uL Nucleated RBCs (0-0) /100 WBC PT (9.0-12.0) sec INR (<1.2) ABG pH 7.26 L (7.35-7.45) ABG pCO2 54 H (35-45) mmHg ABG pO2 (83-108) mmHg ABG Total CO2 26 H (19-24) mmol/L ABG O2 Saturation 97.9 H (94-97) % ABG Hematocrit 25 L (34.0-46.0) % Hemoglobin 8.1 L (13.0-17.5) gm/dL BUN (9-20) mg/dL Creatinine (0.66-1.25) mg/dL Glucose (74-99) mg/dL POC Glucose (mg/dL) 141 H (70-110) mg/dL C-Reactive Protein (<1.0) mg/dL Total Protein (6.3-8.2) g/dL Albumin (3.5-5.0) g/dL Procalcitonin (0.02-0.09) ng/mL Urine Protein 1+ H (Negative) Urine Ketones 1+ H (Negative) Urine Blood Large H (Negative) Ur Leukocyte Esterase Small H (Negative) Urine RBC >182 H (0-5) /hpf Urine WBC 10 H (0-5) /hpf Urine Bacteria Rare H (None) /hpf Hyaline Casts 36 H (0-2) /lpf Urine Mucus Rare H (None) /hpf 02/21/22 02/21/22 02/21/22 Range/Units 00:09 00:43 01:04 WBC (3.8-10.6) k/uL RBC (4.30-5.90) m/uL Hgb (13.0-17.5) gm/dL Hct (39.0-53.0) % MCH (25.0-35.0) pg MCHC (31.0-37.0) g/dL RDW (11.5-15.5) % Plt Count (150-450) k/uL Neutrophils # (Manual) (1.3-7.7) k/uL Nucleated RBCs (0-0) /100 WBC PT (9.0-12.0) sec INR (<1.2) ABG pH 7.31 L (7.35-7.45) ABG pCO2 47 H (35-45) mmHg ABG pO2 76 L (83-108) mmHg ABG Total CO2 25 H (19-24) mmol/L ABG O2 Saturation (94-97) % ABG Hematocrit 25 L (34.0-46.0) % Hemoglobin 8.0 L (13.0-17.5) gm/dL BUN (9-20) mg/dL Creatinine (0.66-1.25) mg/dL Glucose (74-99) mg/dL POC Glucose (mg/dL) 174 H 158 H (70-110) mg/dL C-Reactive Protein (<1.0) mg/dL Total Protein (6.3-8.2) g/dL Albumin (3.5-5.0) g/dL Procalcitonin (0.02-0.09) ng/mL Urine Protein (Negative) Urine Ketones (Negative) Urine Blood (Negative) Ur Leukocyte Esterase (Negative) Urine RBC (0-5) /hpf Urine WBC (0-5) /hpf Urine Bacteria (None) /hpf Hyaline Casts (0-2) /lpf Urine Mucus (None) /hpf 02/21/22 02/21/22 02/21/22 Range/Units 03:43 03:43 03:43 WBC 11.2 H (3.8-10.6) k/uL RBC 3.64 L (4.30-5.90) m/uL Hgb 8.0 L (13.0-17.5) gm/dL Hct 30.4 L (39.0-53.0) % MCH 21.9 L (25.0-35.0) pg MCHC 26.3 L (31.0-37.0) g/dL RDW 18.6 H (11.5-15.5) % Plt Count 528 H (150-450) k/uL Neutrophils # (Manual) 9.40 H (1.3-7.7) k/uL Nucleated RBCs 4 H (0-0) /100 WBC PT (9.0-12.0) sec INR (<1.2) ABG pH (7.35-7.45) ABG pCO2 (35-45) mmHg ABG pO2 (83-108) mmHg ABG Total CO2 (19-24) mmol/L ABG O2 Saturation (94-97) % ABG Hematocrit (34.0-46.0) % Hemoglobin (13.0-17.5) gm/dL BUN 52 H (9-20) mg/dL Creatinine 1.63 H (0.66-1.25) mg/dL Glucose 160 H (74-99) mg/dL POC Glucose (mg/dL) (70-110) mg/dL C-Reactive Protein 4.2 H (<1.0) mg/dL Total Protein 5.5 L (6.3-8.2) g/dL Albumin 2.9 L (3.5-5.0) g/dL Procalcitonin 0.66 H (0.02-0.09) ng/mL Urine Protein (Negative) Urine Ketones (Negative) Urine Blood (Negative) Ur Leukocyte Esterase (Negative) Urine RBC (0-5) /hpf Urine WBC (0-5) /hpf Urine Bacteria (None) /hpf Hyaline Casts (0-2) /lpf Urine Mucus (None) /hpf 02/21/22 02/21/22 02/21/22 Range/Units 04:58 05:56 07:30 WBC (3.8-10.6) k/uL RBC (4.30-5.90) m/uL Hgb (13.0-17.5) gm/dL Hct (39.0-53.0) % MCH (25.0-35.0) pg MCHC (31.0-37.0) g/dL RDW (11.5-15.5) % Plt Count (150-450) k/uL Neutrophils # (Manual) (1.3-7.7) k/uL Nucleated RBCs (0-0) /100 WBC PT 12.5 H (9.0-12.0) sec INR 1.2 H (<1.2) ABG pH (7.35-7.45) ABG pCO2 (35-45) mmHg ABG pO2 145 H (83-108) mmHg ABG Total CO2 (19-24) mmol/L ABG O2 Saturation 100.0 H (94-97) % ABG Hematocrit 24 L (34.0-46.0) % Hemoglobin 7.8 L (13.0-17.5) gm/dL BUN (9-20) mg/dL Creatinine (0.66-1.25) mg/dL Glucose (74-99) mg/dL POC Glucose (mg/dL) 154 H (70-110) mg/dL C-Reactive Protein (<1.0) mg/dL Total Protein (6.3-8.2) g/dL Albumin (3.5-5.0) g/dL Procalcitonin (0.02-0.09) ng/mL Urine Protein (Negative) Urine Ketones (Negative) Urine Blood (Negative) Ur Leukocyte Esterase (Negative) Urine RBC (0-5) /hpf Urine WBC (0-5) /hpf Urine Bacteria (None) /hpf Hyaline Casts (0-2) /lpf Urine Mucus (None) /hpf Microbiology - Last 24 Hours (Table) 02/21/22 04:28 Sputum Culture - Preliminary Sputum Assessment and Plan (1) Abdominal wall defect, acquired Current Visit: Yes Status: Acute Code(s): M95.8 - OTH ACQUIRED DEFORMITIES OF MUSCULOSKELETAL SYSTEM SNOMED Code(s): 227640451875214 (2) Pneumonia Current Visit: Yes Status: Acute Code(s): J18.9 - PNEUMONIA, UNSPECIFIED ORGANISM SNOMED Code(s): 376515187 Plan: 1patient presented to hospital with confusion and increasing shortness of breath in this patient with evidence of ascites effusion and 3+ edema feet likely related to fluid overload underlying pneumonia less likely but not entirely excluded. 2patient with a nonhealing lower abdominal wound however there is no evidence of any surrounding redness and CT abdominal pelvis did not mention any abscess. 3abdominal cultures are growing MSSA and anaerobes, the patient sputum is growing Malathi. 4patient did have worsening of his respiratory status requiring reintubated also running a fever culture has been repeated antibiotic has been switched to Zosyn and will monitor clinical course closely Time with Patient: Less than 30
[2022-02-21] MEDS ORDERED: AMIODARONE 450 MG in DEXTROSE 5% IN WATER 250 ML IV SCH ×2 (16:15)
[2022-02-21 18:02] LABS: Glucose,Whole Blood 220 mg/dL (70-110)
[2022-02-21] MEDS: ASPIRIN 81 MG PO SCH (20:59)
[2022-02-21] MEDS ORDERED: FUROSEMIDE 10 MG/ML 4 ML VIAL IV SCH (21:00)
[2022-02-21 23:51] LABS: Glucose,Whole Blood 207 mg/dL (70-110)
[2022-02-22] MEDS: AMIODARONE 360 MG in DEXTROSE 5% IN WATER 200 ML IV SCH ×10 (00:44→23:22)
[2022-02-22] MEDS: IPRATROPIUM-ALBUTEROL 3 ML NEB INHALATION SCH ×6 (03:47→23:07)
[2022-02-22 05:08] LABS: Anisocytosis Slight; HGB 7.4 gm/dL (13.0-17.5); Hypochromasia Marked; MCH 22.2 pg (25.0-35.0); MCHC 27.4 g/dL (31.0-37.0); Mean Platelet Volume 7.8; Microcytosis Slight; Platelet Count 323 k/uL (150-450); Poikilocytosis Moderate; RBC 3.34 m/uL (4.30-5.90); WBC 8.2 k/uL (3.8-10.6)
[2022-02-22 05:23] LABS: Albumin 2.6 g/dL (3.5-5.0); Calcium 8.1 mg/dL (8.4-10.2); Total Bilirubin 0.8 mg/dL (0.2-1.3); Total Protein 5.1 g/dL (6.3-8.2)
[2022-02-22 05:28] LABS: Band Neutrophils % 3 %; Eosinophils # (M) 0.08 k/uL (0-0.7); Lymphocytes # (M) 0.74 k/uL (1.0-4.8); Monocytes # (M) 0.57 k/uL (0-1.0); Neutrophils % (M) 80 %; Nucleated Red Blood Cells 0 /100 WBC (0-0); Total Cells Counted 100
[2022-02-22 05:29] LABS: Anisocytosis (M) Present; Poikilocytosis (M) Present; Stomatocytes Present
[2022-02-22 05:30] LABS: Glucose,Whole Blood 205 mg/dL (70-110)
[2022-02-22] MEDS: INSULIN ASPART (NovoLOG) 100 UNIT/ML VIAL SQ SCH ×4 (05:32→23:33)
[2022-02-22 05:34] LABS: ABG Base Excess 3.9 mmol/L; ABG HCO3 28 mmol/L (21-25); ABG PCO2 38 mmHg (35-45); ABG PH 7.47 (7.35-7.45); ABG PO2 64 mmHg (83-108); ABG TCO2 29 mmol/L (19-24); Allen Test Performed? Yes
[2022-02-22 05:37] LABS: ABG Hematocrit 23 % (34.0-46.0)
[2022-02-22] MEDS: POTASSIUM CHLORIDE 20 MEQ in WATER FOR INJECTION 1 100ML.BAG IVPB SCH ×2 (06:11→08:28)
--- NOTE | 2022-02-22 07:28 | XR ---
EXAMINATION TYPE: XR chest 1V portable DATE OF EXAM: 02/22/2022 Comparison: 02/21/2022 Clinical History: 76-year-old male Tube placement Findings: ET and NG tubes satisfactory. Right subclavian CVC tip in the right atrium. Prominent leftward patien t rotation. Heart appears mildly enlarged. Diffuse interstitial and patchy opacities are present bila terally along with small bilateral pleural effusions and prominent bibasilar patchy opacity adjacent. Impression: Relatively similar findings, probably mild patchy pulmonary edema along with small pleural effusions with adjacent atelectasis and/or consolidation.
[2022-02-22] MEDS: MAGNESIUM SULFATE-D5W PMX 1 GM in DEXTROSE/WATER 1 100ML.BAG IVPB SCH ×2 (07:35→08:34)
--- NOTE | 2022-02-22 07:57 | P.PN ---
Subjective Progress Note Date: 02/22/22 Principal diagnosis: Heart failure with preserved ejection fraction/severe aortic stenosis This is a 76-year-old gentleman with aortic stenosis and chronic kidney disease as well as hypertension and dyslipidemia as well as multiple comorbid conditions was admitted to the hospital with acute on chronic diastolic heart failure and he developed respiratory failure requiring intubation and mechanical ventilation. The patient underwent recently an abdominal surgery and he did dai ve surgical site wound infection secondary to methicillin-resistant staph aureus. The patient was seen this morning. He continues to be intubated on mechanical ventilation. He felt an attempt to wean yesterday. He continues to be unstable and requiring norepinephrine. He has been in sinus rhythm with PACs. February 202021 The patient was seen this morning he was extubated yesterday. He remains tachypneic and slightly tachycardic and he is in mild respiratory distress. Otherwise he's off norepinephrine and he seems hemodynamically stable. He is in normal sinus mechanism was mild sinus tachycardia probably related to the agitation in mild respiratory distress. From a cardiac standpoint of view, we'll continue the current medical regimen. Continue following up with the patient February 212021 The patient was seen this morning. Unfortunately he was reintubated yesterday because of tachypnea and respiratory distress. He has been maintaining normal sinus mechanism. He was given Lasix IV yesterday. The chest x-ray from this morning showed an ARDS versus pulmonary edema. From the cardiac standpoint of view, we will continue the current medical regimen. He seems now to be hemodynamically stable and not on any vasopressors. February 222021 The patient remains intubated on mechanical ventilation. Unfortunately he went yesterday into A. fib with RVR. Because he was on norepinephrine I started the patient on amiodarone IV. He converted to normal sinus mechanism and currently is in sinus rhythm with PACs. He is on a new IV which I'm going to keep at this point. Regarding anticoagulation I would start the patient on Lovenox. He is hyper 1 week overall and he has been receiving Lasix IV. Objective - Vital Signs Vital signs: Vital Signs Temp 99 F 02/22/22 04:00 Pulse 111 H 02/22/22 07:53 Resp 25 H 02/22/22 07:00 BP 92/49 02/22/22 07:00 Pulse Ox 94 L 02/22/22 07:00 FiO2 40 02/22/22 07:28 Intake & Output 02/21/22 02/22/22 02/22/22 18:59 06:59 18:59 Intake Total 7933.187 2480.498 51 Output Total 1140 1695 55 Balance 595.681 -607.502 -4 Weight 102 kg 101 kg Intake: IV 1272 412 26 0.9 KVO 200 240 20 LR bolus 1000 Piperacillin-Tazobactam 3 100 .375 gm In Sodium Chloride 0.9% 100 ml @ 25 mls/hr IVPB Q8HR [facility] Rx# :[id number] pressure bag 72 72 6 Intake, IV Titration 183.681 400.498 Amount Amiodarone 360 mg In 181.109 Dextrose 5% in Water 200 ml @ 1 MG/MIN 33.333 mls/ hr IV .Q6H [facility] Rx#: [id number] Norepinephrine 32 mg In 9.219 43.222 Sodium Chloride 0.9% 218 ml @ 0.05 MCG/KG/MIN 2. 344 mls/hr IV .Q24H [facility] Rx#:[id number] propofoL 1,000 mg In 100 176.167 Empty Bag 1 bag @ 5 MCG/ KG/MIN 3.255 mls/hr IV . Q24H [facility] Rx#:[id number] propofoL 1,000 mg In 74.462 Empty Bag 1 bag @ 5 MCG/ KG/MIN 3.266 mls/hr IV . Q24H [facility] Rx#:[id number] Tube Feeding 280 275 25 Output: Urine 1140 1695 55 Other: Voiding Method Indwelling Catheter Indwelling Catheter ABP, PAP, CO, CI - Last Documented Arterial Blood Pressure 96/57 - Constitutional General appearance: Present: no acute distress - Respiratory Respiratory: bilateral: diminished - Cardiovascular Rhythm: regular - Labs CBC & Chem 7: 02/22/22 04:34 02/22/22 04:34 Labs: Abnormal Lab Results - Last 24 Hours (Table) 02/21/22 02/21/22 02/21/22 Range/Units 03:43 03:43 07:30 RBC (4.30-5.90) m/uL Hgb (13.0-17.5) gm/dL Hct (39.0-53.0) % MCH (25.0-35.0) pg MCHC (31.0-37.0) g/dL RDW (11.5-15.5) % Lymphocytes # (Manual) (1.0-4.8) k/uL PT 12.5 H (9.0-12.0) sec INR 1.2 H (<1.2) ABG pH (7.35-7.45) ABG pO2 (83-108) mmHg ABG HCO3 (21-25) mmol/L ABG Total CO2 (19-24) mmol/L ABG Hematocrit (34.0-46.0) % Hemoglobin (13.0-17.5) gm/dL Potassium (3.5-5.1) mmol/L BUN (9-20) mg/dL Glucose (74-99) mg/dL POC Glucose (mg/dL) (70-110) mg/dL Calcium (8.4-10.2) mg/dL Magnesium 2.5 H (1.5-2.4) mg/dL Total Protein (6.3-8.2) g/dL Albumin (3.5-5.0) g/dL Procalcitonin 0.66 H (0.02-0.09) ng/mL 02/21/22 02/21/22 02/21/22 Range/Units 12:17 18:00 23:50 RBC (4.30-5.90) m/uL Hgb (13.0-17.5) gm/dL Hct (39.0-53.0) % MCH (25.0-35.0) pg MCHC (31.0-37.0) g/dL RDW (11.5-15.5) % Lymphocytes # (Manual) (1.0-4.8) k/uL PT (9.0-12.0) sec INR (<1.2) ABG pH (7.35-7.45) ABG pO2 (83-108) mmHg ABG HCO3 (21-25) mmol/L ABG Total CO2 (19-24) mmol/L ABG Hematocrit (34.0-46.0) % Hemoglobin (13.0-17.5) gm/dL Potassium (3.5-5.1) mmol/L BUN (9-20) mg/dL Glucose (74-99) mg/dL POC Glucose (mg/dL) 228 H 220 H 207 H (70-110) mg/dL Calcium (8.4-10.2) mg/dL Magnesium (1.5-2.4) mg/dL Total Protein (6.3-8.2) g/dL Albumin (3.5-5.0) g/dL Procalcitonin (0.02-0.09) ng/mL 02/22/22 02/22/22 02/22/22 Range/Units 04:34 04:34 05:26 RBC 3.34 L (4.30-5.90) m/uL Hgb 7.4 L (13.0-17.5) gm/dL Hct 27.0 L (39.0-53.0) % MCH 22.2 L (25.0-35.0) pg MCHC 27.4 L (31.0-37.0) g/dL RDW 19.0 H (11.5-15.5) % Lymphocytes # (Manual) 0.74 L (1.0-4.8) k/uL PT (9.0-12.0) sec INR (<1.2) ABG pH (7.35-7.45) ABG pO2 (83-108) mmHg ABG HCO3 (21-25) mmol/L ABG Total CO2 (19-24) mmol/L ABG Hematocrit (34.0-46.0) % Hemoglobin (13.0-17.5) gm/dL Potassium 3.0 L (3.5-5.1) mmol/L BUN 49 H (9-20) mg/dL Glucose 178 H (74-99) mg/dL POC Glucose (mg/dL) 205 H (70-110) mg/dL Calcium 8.1 L (8.4-10.2) mg/dL Magnesium (1.5-2.4) mg/dL Total Protein 5.1 L (6.3-8.2) g/dL Albumin 2.6 L (3.5-5.0) g/dL Procalcitonin (0.02-0.09) ng/mL 02/22/22 Range/Units 05:32 RBC (4.30-5.90) m/uL Hgb (13.0-17.5) gm/dL Hct (39.0-53.0) % MCH (25.0-35.0) pg MCHC (31.0-37.0) g/dL RDW (11.5-15.5) % Lymphocytes # (Manual) (1.0-4.8) k/uL PT (9.0-12.0) sec INR (<1.2) ABG pH 7.47 H (7.35-7.45) ABG pO2 64 L (83-108) mmHg ABG HCO3 28 H (21-25) mmol/L ABG Total CO2 29 H (19-24) mmol/L ABG Hematocrit 23 L (34.0-46.0) % Hemoglobin 7.3 L (13.0-17.5) gm/dL Potassium (3.5-5.1) mmol/L BUN (9-20) mg/dL Glucose (74-99) mg/dL POC Glucose (mg/dL) (70-110) mg/dL Calcium (8.4-10.2) mg/dL Magnesium (1.5-2.4) mg/dL Total Protein (6.3-8.2) g/dL Albumin (3.5-5.0) g/dL Procalcitonin (0.02-0.09) ng/mL Microbiology - Last 24 Hours (Table) 02/20/22 22:59 Blood Culture - Preliminary Blood No Growth after 24 hours 02/21/22 04:28 Sputum Culture - Preliminary Sputum Assessment and Plan Assessment: Assessment Acute on chronic heart failure with preserved ejection fraction Acute coronary syndrome likely related to hypoxemia/sepsis Acute hypoxic respiratory failure Severe aortic stenosis Cardiac arrhythmia Atrial fibrillation, paroxysmal Plan The right wean the patient from norepinephrine Continue amiodarone IV Start the patient on anticoagulation with Lovenox Follow-up with the patient
[2022-02-22] MEDS ORDERED: POTASSIUM BICARBONATE/CIT AC 20 MEQ TABLET.EFF PO ONE (08:25)
[2022-02-22] MEDS: PIPERACILLIN-TAZOBACTAM 3.375 GM in SODIUM CHLORIDE 0.9% 100 ML IVPB SCH ×3 (08:38→23:32)
[2022-02-22] MEDS: CHLORHEXIDINE GLUCONATE 15 ML CUP MUCOUS MEM SCH ×2 (08:41→21:17)
[2022-02-22] MEDS: PANTOPRAZOLE 40 MG/10 ML VIAL IVP SCH (08:42)
[2022-02-22] MEDS: OXYBUTYNIN CHLORIDE 5 MG TAB PO SCH ×2 (08:42→21:31)
[2022-02-22] MEDS: FUROSEMIDE 10 MG/ML 4 ML VIAL IV SCH ×2 (08:42→21:17)
[2022-02-22] MEDS: COLLAGENASE 250 UNIT/GM OINTMENT 30 GM TUBE TOPICAL SCH (08:47)
[2022-02-22] MEDS: LACTULOSE 20 GM/30 ML CUP PO SCH ×2 (08:47→21:17)
[2022-02-22] MEDS: ENOXAPARIN 100 MG/ML SYRINGE SQ SCH ×2 (09:23→21:25)
--- NOTE | 2022-02-22 10:10 | P.PN ---
Subjective patient is seen in follow-up for acute kidney injury. Renal function better. IV Lasix. Nonoliguric. Intubated. On amiodarone drip. Also on Levophed. Vital signs are stable. on vasopressor support. General: resting in bed. HEENT: intubated. LUNGS: Breath sounds decreased. HEART: irregular rate and rhythm. ABDOMEN: soft, no distention. EXTREMITITES: 2+ edema. Objective - Vital Signs Vital signs: Vital Signs Temp 100 F H 02/22/22 08:00 Pulse 99 02/22/22 09:00 Resp 25 H 02/22/22 09:00 BP 99/56 02/22/22 09:00 Pulse Ox 95 02/22/22 09:00 FiO2 40 02/22/22 09:00 Intake & Output 02/21/22 02/22/22 02/22/22 18:59 06:59 18:59 Intake Total 5639.791 7128.498 728 Output Total 1140 1695 280 Balance 595.681 -607.502 448 Weight 102 kg 101 kg Intake: IV 1272 412 578 0.9 KVO 200 240 60 LR bolus 1000 Piperacillin-Tazobactam 3 100 100 .375 gm In Sodium Chloride 0.9% 100 ml @ 25 mls/hr IVPB Q8HR BRAD Rx# :[id number] magnesium 200 potassium 200 pressure bag 72 72 18 Intake, IV Titration 183.681 400.498 100 Amount Amiodarone 360 mg In 181.109 Dextrose 5% in Water 200 ml @ 1 MG/MIN 33.333 mls/ hr IV .Q6H BRAD Rx#: [id number] Norepinephrine 32 mg In 9.219 43.222 Sodium Chloride 0.9% 218 ml @ 0.05 MCG/KG/MIN 2. 344 mls/hr IV .Q24H BRAD Rx#:[id number] propofoL 1,000 mg In 100 176.167 100 Empty Bag 1 bag @ 5 MCG/ KG/MIN 3.255 mls/hr IV . Q24H BRAD Rx#:[id number] propofoL 1,000 mg In 74.462 Empty Bag 1 bag @ 5 MCG/ KG/MIN 3.266 mls/hr IV . Q24H BRAD Rx#:[id number] Tube Feeding 280 275 50 Output: Urine 1140 1695 280 Other: Voiding Method Indwelling Catheter Indwelling Catheter Indwelling Catheter # Bowel Movements 1 ABP, PAP, CO, CI - Last Documented Arterial Blood Pressure 105/53 - Labs CBC & Chem 7: 02/22/22 04:34 02/22/22 04:34 Labs: Abnormal Lab Results - Last 24 Hours (Table) 02/21/22 02/21/22 02/21/22 Range/Units 03:43 12:17 18:00 RBC (4.30-5.90) m/uL Hgb (13.0-17.5) gm/dL Hct (39.0-53.0) % MCH (25.0-35.0) pg MCHC (31.0-37.0) g/dL RDW (11.5-15.5) % Lymphocytes # (Manual) (1.0-4.8) k/uL ABG pH (7.35-7.45) ABG pO2 (83-108) mmHg ABG HCO3 (21-25) mmol/L ABG Total CO2 (19-24) mmol/L ABG Hematocrit (34.0-46.0) % Hemoglobin (13.0-17.5) gm/dL Potassium (3.5-5.1) mmol/L BUN (9-20) mg/dL Glucose (74-99) mg/dL POC Glucose (mg/dL) 228 H 220 H (70-110) mg/dL Calcium (8.4-10.2) mg/dL Magnesium 2.5 H (1.5-2.4) mg/dL Total Protein (6.3-8.2) g/dL Albumin (3.5-5.0) g/dL 02/21/22 02/22/22 02/22/22 Range/Units 23:50 04:34 04:34 RBC 3.34 L (4.30-5.90) m/uL Hgb 7.4 L (13.0-17.5) gm/dL Hct 27.0 L (39.0-53.0) % MCH 22.2 L (25.0-35.0) pg MCHC 27.4 L (31.0-37.0) g/dL RDW 19.0 H (11.5-15.5) % Lymphocytes # (Manual) 0.74 L (1.0-4.8) k/uL ABG pH (7.35-7.45) ABG pO2 (83-108) mmHg ABG HCO3 (21-25) mmol/L ABG Total CO2 (19-24) mmol/L ABG Hematocrit (34.0-46.0) % Hemoglobin (13.0-17.5) gm/dL Potassium 3.0 L (3.5-5.1) mmol/L BUN 49 H (9-20) mg/dL Glucose 178 H (74-99) mg/dL POC Glucose (mg/dL) 207 H (70-110) mg/dL Calcium 8.1 L (8.4-10.2) mg/dL Magnesium (1.5-2.4) mg/dL Total Protein 5.1 L (6.3-8.2) g/dL Albumin 2.6 L (3.5-5.0) g/dL 02/22/22 02/22/22 Range/Units 05:26 05:32 RBC (4.30-5.90) m/uL Hgb (13.0-17.5) gm/dL Hct (39.0-53.0) % MCH (25.0-35.0) pg MCHC (31.0-37.0) g/dL RDW (11.5-15.5) % Lymphocytes # (Manual) (1.0-4.8) k/uL ABG pH 7.47 H (7.35-7.45) ABG pO2 64 L (83-108) mmHg ABG HCO3 28 H (21-25) mmol/L ABG Total CO2 29 H (19-24) mmol/L ABG Hematocrit 23 L (34.0-46.0) % Hemoglobin 7.3 L (13.0-17.5) gm/dL Potassium (3.5-5.1) mmol/L BUN (9-20) mg/dL Glucose (74-99) mg/dL POC Glucose (mg/dL) 205 H (70-110) mg/dL Calcium (8.4-10.2) mg/dL Magnesium (1.5-2.4) mg/dL Total Protein (6.3-8.2) g/dL Albumin (3.5-5.0) g/dL Microbiology - Last 24 Hours (Table) 02/21/22 04:28 Gram Stain - Preliminary Sputum Sputum Culture - Preliminary 02/20/22 22:59 Blood Culture - Preliminary Blood No Growth after 24 hours Assessment and Plan Plan: Assessment: 1. Acute kidney injury secondary to ATN secondary to septic shock. Baseline creatinine near 1 and peaked at 1.63 this admission - 1.22 today. No hydronephrosis noted on CAT scan done this admission. 2. Septic shock secondary to abdominal wall infection as well as pneumonia. ID following. 3. Acute on chronic systolic CHF with ejection fraction of 40-45% with severe aortic stenosis. 4. Acute hypoxic respiratory failure. 5. Diabetes mellitus. 6. Volume overload. 7. A. fib with RVR maintained on amiodarone drip. 8. Hypokalemia from diuresis. Plan: maintain IV Lasix 40 mg twice daily. potassium being replaced. Wean FiO2 and vasopressors. Avoid nephrotoxins. Continue to monitor renal function and urine output.
--- NOTE | 2022-02-22 10:55 | P.PN ---
Subjective Progress Note Date: 02/22/22 Patient was seen and examined. Unfortunately, patient was reintubated on 11/21. Ventilator settings rate 24, tidal volume 450, FiO2 40%, PEEP of 5. Continues to be on Levophed. Heart rate improved to low 100s. CBC shows hemoglobin of 7.4. BMP shows potassium of 3, BUN of 49, calcium of 8.1, albumin 2.6. General: Intubated Derm: warm, dry Head: atraumatic, normocephalic, symmetric Eyes: EOMI, no lid lag, anicteric sclera Mouth: no lip lesion, mucus membranes moist Cardiovascular: Tachycardic, irregular, systolic ejection murmur Lungs: Coarse breath sounds bilaterally, ventilator dependent Abdominal: soft, abdominal dressing c/d/i Ext: no gross muscle atrophy, no edema, no contractures Neuro: Unable to accurately assess Psych: Unable to accurately assess Assessment/plan: Hypokalemia - Replace and monitor Atrial fibrillation with RVR - Continue amiodarone drip - Cardiology on board Acute Hypoxemic and Hypercarbic Respiratory Failure Septic Shock with Toxic/Metabolic Encephalopathy Hospital Acquired Pneumonia Surgical Site Infection s/p Bowel Resection Acute Kidney Injury - Extubated 02/19, reintubated 02/21/2022 - Admit to ICU, telemetry - ICU, ID consultation appreciated - Wound Care consult - Surgery consult - Nephrology consult - Bronchodilators - Zosyn - f/u BCx - NGTD, Wound Cx - staph aureus - Lasix 40 mg IV today for 1 - Levophed - Monitor I/Os, UOP - Daily labs Severe Aortic Stenosis Chronic Diastolic Heart Failure - Strict I/Os, daily weights - Cardiology on board - Echocardiogram shows EF of 45% with moderate concentric LVH, severe calcification of the mitral valve, severe aortic stenosis Normocytic anemia -Stable DM - Insulin sliding scale SC Q6H NO CODE but OK with intubation DVT PPX heparin SC BID Objective - Vital Signs Vital signs: Vital Signs Temp 100 F H 02/22/22 08:00 Pulse 107 H 02/22/22 10:00 Resp 29 H 02/22/22 10:00 BP 95/59 02/22/22 10:00 Pulse Ox 97 02/22/22 10:00 FiO2 40 02/22/22 10:00 Intake & Output 02/21/22 02/22/22 02/22/22 18:59 06:59 18:59 Intake Total 7196.198 5030.498 779 Output Total 1140 1695 430 Balance 595.681 -607.502 349 Weight 102 kg 101 kg Intake: IV 1272 412 604 0.9 KVO 200 240 80 LR bolus 1000 Piperacillin-Tazobactam 3 100 100 .375 gm In Sodium Chloride 0.9% 100 ml @ 25 mls/hr IVPB Q8HR [facility] Rx# :[id number] magnesium 200 potassium 200 pressure bag 72 72 24 Intake, IV Titration 183.681 400.498 100 Amount Amiodarone 360 mg In 181.109 Dextrose 5% in Water 200 ml @ 1 MG/MIN 33.333 mls/ hr IV .Q6H BRAD Rx#: [id number] Norepinephrine 32 mg In 9.219 43.222 Sodium Chloride 0.9% 218 ml @ 0.05 MCG/KG/MIN 2. 344 mls/hr IV .Q24H [facility]AD Rx#:[id number] propofoL 1,000 mg In 100 176.167 100 Empty Bag 1 bag @ 5 MCG/ KG/MIN 3.255 mls/hr IV . Q24H [facility]AD Rx#:[id number] propofoL 1,000 mg In 74.462 Empty Bag 1 bag @ 5 MCG/ KG/MIN 3.266 mls/hr IV . Q24H [facility]AD Rx#:[id number] Tube Feeding 280 275 75 Output: Urine 1140 1695 430 Other: Voiding Method Indwelling Catheter Indwelling Catheter Indwelling Catheter # Bowel Movements 1 ABP, PAP, CO, CI - Last Documented Arterial Blood Pressure 101/58 - Labs CBC & Chem 7: 02/22/22 04:34 02/22/22 04:34 Labs: Abnormal Lab Results - Last 24 Hours (Table) 02/21/22 02/21/22 02/21/22 Range/Units 03:43 12:17 18:00 RBC (4.30-5.90) m/uL Hgb (13.0-17.5) gm/dL Hct (39.0-53.0) % MCH (25.0-35.0) pg MCHC (31.0-37.0) g/dL RDW (11.5-15.5) % Lymphocytes # (Manual) (1.0-4.8) k/uL ABG pH (7.35-7.45) ABG pO2 (83-108) mmHg ABG HCO3 (21-25) mmol/L ABG Total CO2 (19-24) mmol/L ABG Hematocrit (34.0-46.0) % Hemoglobin (13.0-17.5) gm/dL Potassium (3.5-5.1) mmol/L BUN (9-20) mg/dL Glucose (74-99) mg/dL POC Glucose (mg/dL) 228 H 220 H (70-110) mg/dL Calcium (8.4-10.2) mg/dL Magnesium 2.5 H (1.5-2.4) mg/dL Total Protein (6.3-8.2) g/dL Albumin (3.5-5.0) g/dL 02/21/22 02/22/22 02/22/22 Range/Units 23:50 04:34 04:34 RBC 3.34 L (4.30-5.90) m/uL Hgb 7.4 L (13.0-17.5) gm/dL Hct 27.0 L (39.0-53.0) % MCH 22.2 L (25.0-35.0) pg MCHC 27.4 L (31.0-37.0) g/dL RDW 19.0 H (11.5-15.5) % Lymphocytes # (Manual) 0.74 L (1.0-4.8) k/uL ABG pH (7.35-7.45) ABG pO2 (83-108) mmHg ABG HCO3 (21-25) mmol/L ABG Total CO2 (19-24) mmol/L ABG Hematocrit (34.0-46.0) % Hemoglobin (13.0-17.5) gm/dL Potassium 3.0 L (3.5-5.1) mmol/L BUN 49 H (9-20) mg/dL Glucose 178 H (74-99) mg/dL POC Glucose (mg/dL) 207 H (70-110) mg/dL Calcium 8.1 L (8.4-10.2) mg/dL Magnesium (1.5-2.4) mg/dL Total Protein 5.1 L (6.3-8.2) g/dL Albumin 2.6 L (3.5-5.0) g/dL 02/22/22 02/22/22 Range/Units 05:26 05:32 RBC (4.30-5.90) m/uL Hgb (13.0-17.5) gm/dL Hct (39.0-53.0) % MCH (25.0-35.0) pg MCHC (31.0-37.0) g/dL RDW (11.5-15.5) % Lymphocytes # (Manual) (1.0-4.8) k/uL ABG pH 7.47 H (7.35-7.45) ABG pO2 64 L (83-108) mmHg ABG HCO3 28 H (21-25) mmol/L ABG Total CO2 29 H (19-24) mmol/L ABG Hematocrit 23 L (34.0-46.0) % Hemoglobin 7.3 L (13.0-17.5) gm/dL Potassium (3.5-5.1) mmol/L BUN (9-20) mg/dL Glucose (74-99) mg/dL POC Glucose (mg/dL) 205 H (70-110) mg/dL Calcium (8.4-10.2) mg/dL Magnesium (1.5-2.4) mg/dL Total Protein (6.3-8.2) g/dL Albumin (3.5-5.0) g/dL Microbiology - Last 24 Hours (Table) 02/21/22 04:28 Gram Stain - Preliminary Sputum Sputum Culture - Preliminary 02/20/22 22:59 Blood Culture - Preliminary Blood No Growth after 24 hours
--- NOTE | 2022-02-22 11:38 | P.PN ---
Subjective Progress Note Date: 02/22/22 Principal diagnosis: Respiratory failure. Reevaluated today on 02/14/22, remains in the ICU, intubated and mechanically ventilated. Patient is on assist control rate of 20, volume 500 FiO2 40% and I cut it down to 35% PEEP of 8 and I cut it down to 5. ABG today showed a pO2 of 184 pCO2 39 pH of 7.48. Patient is requiring norepinephrine at 0.09 mcg/kg/m is on IV fluid 0.9 normal saline at 75 mL per hour and he is on propofol at 40 mcg/kg/m. Receiving vital HPI 30 mL per hour. Patient remains on Zosyn, considering his CVP is only 7 and urine output is marginal I will go ahead and recommended a liter bolus of 0.9 normal saline. We will cut down the propofol and hopefully cut down on the norepinephrine if his blood pressure improves. May improve with fluid bolus and with cutting down the dose of propofol WBC count is 8.5 hemoglobin 7.6 hematocrit is 27.6 basic metabolic profile is normal bicarb is normal BUN is 41 creatinine 1.2, improving since yesterday creatinine was 1.51 a chest x-ray showed pleural parenchymal changes, air bronchogram noted in the left retrocardiac area, highly suspicious for pneumonia. Reevaluated today on 02/15/22, patient remains on the ventilator, his on assist control rate of 20 to light and 500 FiO2 35% PEEP of 5 ABG showed a pO2 of 100 pCO2 38 pH of 7.49. Patient remains on antibiotics in the form of Zosyn he is also on diuretics, the diuretics was increased since the patient continues to have findings suggestive of mild fluid overload and he also has findings suggestive of pneumonia. Chest x-ray is showing cardiomegaly with pulmonary vascular congestion and bilateral pleural effusion and bibasilar airspace disease WBC count is 8.1 hemoglobin is 7.7, basic metabolic profile is normal renal profile is normal, creatinine has been steadily improving since admission, it is 1.01 today. Sputum cultures are negative except for some yeast species and his wound culture is showing presumptive staph aureus, final sensitivities pending. In the meantime the patient is on Zosyn. He did receive vancomycin initially. Reevaluated today on 02/16/22, patient remains in the ICU, intubated and mechanically ventilated. He is on assist control rate of 20- tidal volume of 500 FiO2 35% PEEP of 5. ABG showed a pO2 of 100 pCO2 40 pH of 7.50 patient remains sedated, he is requiring more and norepinephrine overnight, he is on pro pofol at 35 mcg/kg/m, norepinephrine at 0.12 mcg/kg/m patient has not had a bowel movement since admission, lactulose. Today on plan to give the patient fluid boluses 500 mL at a time, and I plan to hold his Lasix. Hoping that fluid boluses will improve his blood pressure and hopefully down on the dose of norepinephrine. Patient remains on vital HPI 38 mL per hour. His antibiotics were transitioned to Unasyn since the patient has mostly staph aureus, MSSA in the wound culture. Yesterday the patient weaned but could not be extubated mostly because of worsening tachycardia and worsening endotracheal secretions. Hence I had to place him back on assist control mode of mechanical ventilation and did not go further to extubate. Labs today demonstrate is 8.6 and global was 8.1 lites are normal, renal profile is normal. Sputum cultures are negative blood cultures are - abdominal wound cultures are positive for MSSA. Progress note dated 02/17/2022. This is a 76-year-old male who was admitted on February 12, for her hypercapnic respiratory failure, CO2 narcosis, and CHF. The patient was intubated on February 13. He remains on the mechanical ventilator. The patient is on volume assist control, rate 20, tidal volume 500, FiO2 35%, and PEEP of 5. Blood gases show pO2 78, pCO2 40, and a pH is 7.47. The patient remains on propofol, at 40 mcg/kg/m, norepinephrine at 8 mcg/m, saline at 20 mL an hour, and vital high protein at 30 mL an hour, which is goal. The patient remains on Unasyn. White count 7.8, hemoglobin 7.7, hematocrit 27.6, and platelet count 282,000. Sodium 139, potassium 3.8, chlorides 104, CO2 26, BUN 20, and creatinine 0.83. Abdominal wound cultures are showing Staphylococcus aureus, and anaerobic gram- negative bacilli. Chest x-ray shows pulmonary vascular congestion, small to moderate bilateral pleural effusions, and cardiomegaly. Progress note dated 02/18/2022. 76-year-old male admitted on February 12, for hypercapnic respiratory failure, CO2 narcosis, and CHF. The patient was intubated the following day, on February 13. He remains on the mechanical ventilator. The patient is on volume assist control, rate 20, tidal volume 500, FiO2 85%, PEEP of 5. Blood gases show a PaO2 of 85, pCO2 41, and a pH is 7.46. The patient failed his daily interruption of sedation yesterday. We will attempted again today. Currently, norepinephrine is off, and propofol is off. He is getting saline at 20 mL an hour, and vital high protein at 30 mL an hour, which is goal. White count 9.8, hemoglobin 8, hematocrit 28.8, and platelet count 332,000. Sodium, potassium, chloride, CO2, anion gap, are all normal. BUN is 21, with a creatinine of 0.81. Albumin is 2.6. Chest x-ray shows diffuse airspace disease, and small effusions, consistent with CHF. Progress note dated 02/19/2022. 76-year-old male admitted on February 12 for hypercapnic respiratory failure and CHF. The patient has been having daily interruption of sedation and spontaneous breathing trials. We did not think he was ready yesterday. He currently remains on the ventilator. He is on the volume assist control, rate 20, tidal volume 500, FiO2 35%, and PEEP of 5. Blood gases show pO2 105, he CO2 39, and pH is 7.46. The patient's on propofol at 30 mcg/kg/m, norepinephrine at 5 mcg/m, saline at 10 mL an hour, and vital high protein at 30 mL an hour, which is goal. We will again attempt a DIS/SBT, today, on both pressure support and CPAP. White count 8.2, hemoglobin 7.6, hematocrit 27.7, and platelet count 288,000. Sodium 139, potassium 4, chlorides 103, CO2 26, BUN 28, and creatinine 0.91. The patient's chest x-ray suggests that the endotracheal tube should be pushed down about a centimeter or 2. In addition, the x-ray is consistent with either infiltrate and/or fluid overload. Progress note dated 02/20/2022. 76-year-old male admitted on February 12 for hypercapnic respiratory failure and CHF. The patient was extubated yesterday, February 19. Currently, he is on BiPAP, with settings of 15/5 and 50%. He remains on saline at 10 mL an hour. He also remains on Unasyn as his antibiotic. Laboratory data today includes a white count of 11.8, hemoglobin 8.2, hematocrit 31.6, and a platelet count 362,000. Sodium 139, potassium 4.5, chlorides 102, CO2 25, anion gap 12, BUN 35, and creatinine 1.09. Abdominal wound cultures show evidence of staph a ureus, and anaerobic gram-negative saline. No chest x-ray today as yet. Progress note dated 02/21/2022. 76-year-old male admitted on February 12 for hypercapnic respiratory failure and CHF. The patient was extubated on February 19. Unfortunately last night, the patient's respiratory status declined, and he needed to be reintubated. He was reintubated after midnight, on February 21. Currently, he is on volume assist control, rate 24, tidal volume 450, FiO2 60%, and PEEP of 5. Blood gases show pO2 145, pCO2 37, and pH is 7.41. Those blood gases were done on 80% and the FiO2 was then dropped to 60%. The patient's on norepinephrine at 20 mcg/m, propofol at 45 mcg/kg/m, and 0.9 at KVO. We'll resume tube feedings. I believe he was on vital high protein 30 mL an hour which was goal. We'll also place a PICC line, and given 1-2 L of lactated Ringer's, to see we can stop the norepin ephrine. The patient remains on Zosyn. White count 11.2, hemoglobin 8, hematocrit 30.4, and platelet count normal. Sodium 141, potassium 4.4, chlorides 104, CO2 22, BUN 52, creatinine 1.63. Albumin 2.9. Chest x-ray continues to show diffuse bilateral infiltrates, possibly consistent with either pneumonia, acute lung injury, or pulmonary edema. Progress note dated 02/22/2022. 76-year-old male admitted on February 12 for hypercapnic respiratory failure and congestive heart failure. The patient was extubated on February 19, but unfortunately, required reintubation, on February 21. The patient remains on mechanical ventilator. The patient is on volume assist control, rate 24, tidal volume 450, FiO2 40%, PEEP of 5. Blood gases show pO2 of 64, pCO2 38, and a pH is 7.47. The patient remains on propofol at 25 mcg/kg/m, norepinephrine at 8 mcg/m, amiodarone at 1 mg/m, and Lovenox. In addition, the patient's getting saline at 20 mL an hour, and vital high protein, at goal, which is 25 mL an hour. The patient remains on IV Zosyn. Family apparently make the patient a DO NOT RESUSCITATE. White count 8.2, hemoglobin 7.4, hematocrit 27, and platelet count 323,000. Sodium 141, potassium 3, chlorides 105, CO2 25, BUN 49, and creatinine 1.22. Albumin is 2.6. Chest x-ray findings are largely unchanged. Objective - Vital Signs Vital signs: Vital Signs Temp 100 F H 02/22/22 08:00 Pulse 103 H 02/22/22 11:15 Resp 26 H 02/22/22 11:00 BP 101/67 02/22/22 11:00 Pulse Ox 96 02/22/22 11:00 FiO2 40 02/22/22 11:00 Intake & Output 02/21/22 02/22/22 02/22/22 18:59 06:59 18:59 Intake Total 9644.498 5877.498 999.443 Output Total 1140 1695 680 Balance 595.681 -607.502 319.443 Weight 102 kg 101 kg Intake: IV 1272 412 630 0.9 KVO 200 240 100 LR bolus 1000 Piperacillin-Tazobactam 3 100 100 .375 gm In Sodium Chloride 0.9% 100 ml @ 25 mls/hr IVPB Q8HR BRAD Rx# :[id number] magnesium 200 potassium 200 pressure bag 72 72 30 Intake, IV Titration 183.681 400.498 269.443 Amount Amiodarone 360 mg In 181.109 169.443 Dextrose 5% in Water 200 ml @ 1 MG/MIN 33.333 mls/ hr IV .Q6H BRAD Rx#: [id number] Norepinephrine 32 mg In 9.219 43.222 Sodium Chloride 0.9% 218 ml @ 0.05 MCG/KG/MIN 2. 344 mls/hr IV .Q24H BRAD Rx#:[id number] propofoL 1,000 mg In 100 176.167 100 Empty Bag 1 bag @ 5 MCG/ KG/MIN 3.255 mls/hr IV . Q24H BRAD Rx#:[id number] propofoL 1,000 mg In 74.462 Empty Bag 1 bag @ 5 MCG/ KG/MIN 3.266 mls/hr IV . Q24H BRAD Rx#:[id number] Tube Feeding 280 275 100 Output: Urine 1140 1695 680 Other: Voiding Method Indwelling Catheter Indwelling Catheter Indwelling Catheter # Bowel Movements 1 ABP, PAP, CO, CI - Last Documented Arterial Blood Pressure 103/55 - Exam No acute distress, reintubated, with an orally placed endotracheal tube and NG tube. Sedated. HEENT examination is grossly unremarkable. Neck supple. Full range of motion. No adenopathy thyromegaly or neck vein distention. Cardiovascular examination reveals regular rhythm rate. S1-S2 normal. No S3 or S4. A systolic murmur is noted. Heart sounds are distant. Heart rate 103 bpm. Lungs reveal scattered bilateral rhonchi. No wheezes. No crackles. Breath sounds equal bilaterally. Saturations are 96 %. Abdomen soft, with minimal bowel sounds. Surgical dressings are noted. Extremities are intact. No cyanosis clubbing or edema. Skin is without rash or lesion. Neurologic examination cannot be properly assessed. - Labs CBC & Chem 7: 02/22/22 04:34 02/22/22 04:34 Labs: Abnormal Lab Results - Last 24 Hours (Table) 02/21/22 02/21/22 02/21/22 Range/Units 03:43 12:17 18:00 RBC (4.30-5.90) m/uL Hgb (13.0-17.5) gm/dL Hct (39.0-53.0) % MCH (25.0-35.0) pg MCHC (31.0-37.0) g/dL RDW (11.5-15.5) % Lymphocytes # (Manual) (1.0-4.8) k/uL ABG pH (7.35-7.45) ABG pO2 (83-108) mmHg ABG HCO3 (21-25) mmol/L ABG Total CO2 (19-24) mmol/L ABG Hematocrit (34.0-46.0) % Hemoglobin (13.0-17.5) gm/dL Potassium (3.5-5.1) mmol/L BUN (9-20) mg/dL Glucose (74-99) mg/dL POC Glucose (mg/dL) 228 H 220 H (70-110) mg/dL Calcium (8.4-10.2) mg/dL Magnesium 2.5 H (1.5-2.4) mg/dL Total Protein (6.3-8.2) g/dL Albumin (3.5-5.0) g/dL 02/21/22 02/22/22 02/22/22 Range/Units 23:50 04:34 04:34 RBC 3.34 L (4.30-5.90) m/uL Hgb 7.4 L (13.0-17.5) gm/dL Hct 27.0 L (39.0-53.0) % MCH 22.2 L (25.0-35.0) pg MCHC 27.4 L (31.0-37.0) g/dL RDW 19.0 H (11.5-15.5) % Lymphocytes # (Manual) 0.74 L (1.0-4.8) k/uL ABG pH (7.35-7.45) ABG pO2 (83-108) mmHg ABG HCO3 (21-25) mmol/L ABG Total CO2 (19-24) mmol/L ABG Hematocrit (34.0-46.0) % Hemoglobin (13.0-17.5) gm/dL Potassium 3.0 L (3.5-5.1) mmol/L BUN 49 H (9-20) mg/dL Glucose 178 H (74-99) mg/dL POC Glucose (mg/dL) 207 H (70-110) mg/dL Calcium 8.1 L (8.4-10.2) mg/dL Magnesium (1.5-2.4) mg/dL Total Protein 5.1 L (6.3-8.2) g/dL Albumin 2.6 L (3.5-5.0) g/dL 02/22/22 02/22/22 Range/Units 05:26 05:32 RBC (4.30-5.90) m/uL Hgb (13.0-17.5) gm/dL Hct (39.0-53.0) % MCH (25.0-35.0) pg MCHC (31.0-37.0) g/dL RDW (11.5-15.5) % Lymphocytes # (Manual) (1.0-4.8) k/uL ABG pH 7.47 H (7.35-7.45) ABG pO2 64 L (83-108) mmHg ABG HCO3 28 H (21-25) mmol/L ABG Total CO2 29 H (19-24) mmol/L ABG Hematocrit 23 L (34.0-46.0) % Hemoglobin 7.3 L (13.0-17.5) gm/dL Potassium (3.5-5.1) mmol/L BUN (9-20) mg/dL Glucose (74-99) mg/dL POC Glucose (mg/dL) 205 H (70-110) mg/dL Calcium (8.4-10.2) mg/dL Magnesium (1.5-2.4) mg/dL Total Protein (6.3-8.2) g/dL Albumin (3.5-5.0) g/dL Microbiology - Last 24 Hours (Table) 02/21/22 04:28 Gram Stain - Preliminary Sputum Sputum Culture - Preliminary 02/20/22 22:59 Blood Culture - Preliminary Blood No Growth after 24 hours Assessment and Plan Assessment: Acute hypoxemic and hypercapnic respiratory failure, requiring intubation and mechanical ventilation on February 13, 2022, status post extubation on 02/19/2022. Acute respiratory failure, requiring reintubation on 02/21/2022. Probable sepsis/septic shock. Healthcare acquired pneumonia. Surgical site wound infection, secondary to methicillin sensitive Staphylococcus aureus. Acute kidney injury. Severe aortic stenosis. Chronic diastolic CHF. Type 2 diabetes mellitus. Chronic anemia. Benign essential hypertension. Chronic polycythemia. History of bowel resection, December 2021. Plan: Plan dated 02/17/2022. The patient will have a daily interruption of sedation. He may or may not be ready for a spontaneous breathing trial. Labs, x-rays, and medications are rev iewed. He currently remains on propofol at 40 mcg/kg/m, and a modest dose of norepinephrine at 8 mcg/m. He is receiving tube feedings. He remains on Unasyn. We will continue to follow make recommendations along the way. Prognosis is certainly guarded. We do continue GI and DVT prophylaxis. Plan dated 02/18/2022. The patient will be given another daily interruption of sedation today. Hopef ully, he'll do better than he did yesterday. Currently, norepinephrine has been weaned off. Remains on tube feedings. Blood gases are consistent with a mild metabolic alkalosis. Labs, x-rays, and medications are reviewed. Prognosis is certainly guarded. We will continue to follow the patient and make recommendations along the way. We continue GI and DVT prophylaxis. Plan dated 02/19/2022. The patient is again seen today in room 262. Labs, x-rays, and medications are reviewed. The patient remains on propofol at 30 mcg/kg/m, and norepinephrine at 5 mcg/m. We will attempt another daily interruption of sedation and spontaneously breathing trial. We are hoping that he is ready for extubation. This will depend on his mental status, his weaning parameters, and his cuff leak. We will continue to follow and make recommendations along the way. Plan dated 02/21/2020. The patient was extubated yesterday, February 19, to BiPAP. He remains on BiPAP with settings of 15/5 and 50%. Getting saline at 10 mL an hour. He remains on Unasyn for his surgical wound infections. The patient is still very tenuous. We'll continue to watch him in the intensive care unit. He may require reintubation. The patient will be trialed off of BiPAP this morning. Labs, x-rays, and medications are reviewed. Prognosis is certainly very guarded. We'll follow make recommendations along the way. Plan dated 02/21/2022. The patient was initially extubated on February 19. Unfortunately, for worsening respiratory status, he was reintubated on February 21. She remains on the ventilator. The patient is now on norepinephrine, and propofol. We will resume tube feedings. The patient will need a PICC line. In addition, we'll give him 1-2 L of lactated Ringer's to see we can wean off the norepinephrine. Additional recommendations and suggestions are forthcoming. Labs, x-rays, medications are all reviewed. Prognosis is certainly guarded. The patient may be headed towards a tracheostomy and PEG tube. Plan dated 02/22/2022. The patient was unfortunately reintubated on 02/21/2022. He was initially extubated on February 19. The patient is now a DO NOT RESUSCITATE patient with instructions. The patient remains on propofol for sedation. In addition, the patient is on amiodarone, and norepinephrine. The patient is getting tube feedings at goal. The patient remains on Zosyn. Labs, x-rays, and medications are reviewed. Overall prognosis remains very poor. Time with Patient: Greater than 30
[2022-02-22 12:01] LABS: Glucose,Whole Blood 226 mg/dL (70-110)
[2022-02-22] MEDS ORDERED: Potassium Replacement Protocol 1 EACH MISC MISCELLANE PRN (13:27)
[2022-02-22] MEDS ORDERED: POTASSIUM BICARBONATE/CIT AC 20 MEQ TABLET.EFF NG-TUBE SCH (14:00)
--- NOTE | 2022-02-22 15:47 | P.PN ---
Subjective Progress Note Date: 02/22/22 Principal diagnosis: Possible sepsis Patient is a 76-year-old male with a past medical history again for diverticulitis recurrent GI bleed in this patient who is status post laparotomy and no anterior resection on 01/15/2022 subsequently the patient was at the halfway from it the patient was brought for evaluation of confusion and increasing shortness of breath patient did not get intubated. The patient was extubated 02/19/2022, patient did have worsening respiratory status and ended up getting reintubated on 02/21/2022 On today's evaluation that is 02/22/2022, the patient did have low-grade fever 100F this morning, the patient is sedated on the vent and FiO2 is down to 40 % patient is requiring a low-dose pressor support and is currently being weaned o ff the pressor support per the nursing staff, no significant purulent secretion through the ET or diarrhea reported by the nursing staff Objective - Vital Signs Vital signs: Vital Signs Temp 99.9 F H 02/22/22 12:00 Pulse 109 H 02/22/22 13:00 Resp 31 H 02/22/22 13:00 BP 105/61 02/22/22 13:00 Pulse Ox 94 L 02/22/22 13:00 FiO2 40 02/22/22 13:00 Intake & Output 02/21/22 02/22/22 02/22/22 18:59 06:59 18:59 Intake Total 2721.169 3653.498 1209.889 Output Total 1140 1695 1105 Balance 595.681 -607.502 104.889 Weight 102 kg 101 kg Intake: IV 1272 412 682 0.9 KVO 200 240 140 LR bolus 1000 Piperacillin-Tazobactam 3 100 100 .375 gm In Sodium Chloride 0.9% 100 ml @ 25 mls/hr IVPB Q8HR [facility] Rx# :[id number] magnesium 200 potassium 200 pressure bag 72 72 42 Intake, IV Titration 183.681 400.498 377.889 Amount Amiodarone 360 mg In 181.109 169.443 Dextrose 5% in Water 200 ml @ 1 MG/MIN 33.333 mls/ hr IV .Q6H [facility]AD Rx#: [id number] Norepinephrine 32 mg In 9.219 43.222 55.788 Sodium Chloride 0.9% 218 ml @ 0.05 MCG/KG/MIN 2. 344 mls/hr IV .Q24H [facility]AD Rx#:[id number] propofoL 1,000 mg In 100 176.167 152.658 Empty Bag 1 bag @ 5 MCG/ KG/MIN 3.255 mls/hr IV . Q24H [facility]AD Rx#:[id number] propofoL 1,000 mg In 74.462 Empty Bag 1 bag @ 5 MCG/ KG/MIN 3.266 mls/hr IV . Q24H [facility]AD Rx#:[id number] Tube Feeding 280 275 150 Output: Urine 1140 1695 1105 Other: Voiding Method Indwelling Catheter Indwelling Catheter Indwelling Catheter # Bowel Movements 1 ABP, PAP, CO, CI - Last Documented Arterial Blood Pressure 96/52 - Exam GENERAL DESCRIPTION: An elderly male intubated on the vent RESPIRATORY SYSTEM: Unlabored breathing , coarse breath sounds bilaterally HEART: S1 S2 regular rate and rhythm , ABDOMEN: Soft , no tenderness EXTREMITIES: 2plus edema feet - Labs CBC & Chem 7: 02/22/22 04:34 02/22/22 12:00 Labs: Abnormal Lab Results - Last 24 Hours (Table) 02/21/22 02/21/22 02/21/22 Range/Units 03:43 18:00 23:50 RBC (4.30-5.90) m/uL Hgb (13.0-17.5) gm/dL Hct (39.0-53.0) % MCH (25.0-35.0) pg MCHC (31.0-37.0) g/dL RDW (11.5-15.5) % Lymphocytes # (Manual) (1.0-4.8) k/uL ABG pH (7.35-7.45) ABG pO2 (83-108) mmHg ABG HCO3 (21-25) mmol/L ABG Total CO2 (19-24) mmol/L ABG Hematocrit (34.0-46.0) % Hemoglobin (13.0-17.5) gm/dL Potassium (3.5-5.1) mmol/L BUN (9-20) mg/dL Glucose (74-99) mg/dL POC Glucose (mg/dL) 220 H 207 H (70-110) mg/dL Calcium (8.4-10.2) mg/dL Magnesium 2.5 H (1.5-2.4) mg/dL Total Protein (6.3-8.2) g/dL Albumin (3.5-5.0) g/dL 02/22/22 02/22/22 02/22/22 Range/Units 04:34 04:34 05:26 RBC 3.34 L (4.30-5.90) m/uL Hgb 7.4 L (13.0-17.5) gm/dL Hct 27.0 L (39.0-53.0) % MCH 22.2 L (25.0-35.0) pg MCHC 27.4 L (31.0-37.0) g/dL RDW 19.0 H (11.5-15.5) % Lymphocytes # (Manual) 0.74 L (1.0-4.8) k/uL ABG pH (7.35-7.45) ABG pO2 (83-108) mmHg ABG HCO3 (21-25) mmol/L ABG Total CO2 (19-24) mmol/L ABG Hematocrit (34.0-46.0) % Hemoglobin (13.0-17.5) gm/dL Potassium 3.0 L (3.5-5.1) mmol/L BUN 49 H (9-20) mg/dL Glucose 178 H (74-99) mg/dL POC Glucose (mg/dL) 205 H (70-110) mg/dL Calcium 8.1 L (8.4-10.2) mg/dL Magnesium (1.5-2.4) mg/dL Total Protein 5.1 L (6.3-8.2) g/dL Albumin 2.6 L (3.5-5.0) g/dL 02/22/22 02/22/22 Range/Units 05:32 11:59 RBC (4.30-5.90) m/uL Hgb (13.0-17.5) gm/dL Hct (39.0-53.0) % MCH (25.0-35.0) pg MCHC (31.0-37.0) g/dL RDW (11.5-15.5) % Lymphocytes # (Manual) (1.0-4.8) k/uL ABG pH 7.47 H (7.35-7.45) ABG pO2 64 L (83-108) mmHg ABG HCO3 28 H (21-25) mmol/L ABG Total CO2 29 H (19-24) mmol/L ABG Hematocrit 23 L (34.0-46.0) % Hemoglobin 7.3 L (13.0-17.5) gm/dL Potassium (3.5-5.1) mmol/L BUN (9-20) mg/dL Glucose (74-99) mg/dL POC Glucose (mg/dL) 226 H (70-110) mg/dL Calcium (8.4-10.2) mg/dL Magnesium (1.5-2.4) mg/dL Total Protein (6.3-8.2) g/dL Albumin (3.5-5.0) g/dL Microbiology - Last 24 Hours (Table) 02/21/22 04:28 Gram Stain - Preliminary Sputum Sputum Culture - Preliminary 02/20/22 22:59 Blood Culture - Preliminary Blood No Growth after 24 hours Assessment and Plan (1) Abdominal wall defect, acquired Current Visit: Yes Status: Acute Code(s): M95.8 - OTH ACQUIRED DEFORMITIES OF MUSCULOSKELETAL SYSTEM SNOMED Code(s): 743131235003409 (2) Pneumonia Current Visit: Yes Status: Acute Code(s): J18.9 - PNEUMONIA, UNSPECIFIED ORGANISM SNOMED Code(s): 040162965 Plan: 1patient presented to hospital with confusion and increasing shortness of b reath in this patient with evidence of ascites effusion and 3+ edema feet likely related to fluid overload underlying pneumonia less likely but not entirely excluded. 2patient with a nonhealing lower abdominal wound however there is no evidence of any surrounding redness and CT abdominal pelvis did not mention any abscess. 3abdominal cultures are growing MSSA and anaerobes, the patient sputum is growing Malathi. 4patient did have worsening of his respiratory status requiring reintubated also running a fever culture has been repeated which are currently pending the patient did have a normal white count, patient to continue with Zosyn and monitor clinical course closely Time with Patient: Less than 30
--- NOTE | 2022-02-22 15:47 | P.PN ---
Subjective Progress Note Date: 02/22/22 CHIEF COMPLAINT: Bacteremia with wound infection HISTORY OF PRESENT ILLNESS: The patient is a 76-year-old male who presented to the hospital with generalized weakness. Patient has A. fib. He has positive blood cultures. Per discussion with nursing, wound improving. Infectious disease following. He has no code. ROS: Full mechanical ventilation. Has atrial fibrillation. Has positive blood cultures. PHYSICAL EXAM: VITAL SIGNS: Reviewed CONSTITUTIONAL: Well developed and in no acute distress. EYES: Conjuctivae without sclera icterus. Extraocular movements grossly intact. HEAD, EARS, NOSE, THROAT: Moist buccal mucosa. Head is atraumatic, normocephalic. cNo nasal drainage. RESPIRATORY: Mechanically ventilated. CARDIOVASCULAR: Palpable 2+ radial pulses. ABDOMEN: Dressing clean dry and intact. No cellulitis. MUSCULOSKELETAL: No gross deformity of the lower extremities noted. No clubbing. No cyanosis. SKIN: Good skin turgor. Well perfused. NEUROLOGIC: Cranial nerves II through XII grossly intact. No focal or lateralizing signs. PSYCH: Sedated CLINICAL LABS: Reviewed. WBC normal 8.2. Anemia, hemoglobin 7.4. ASSESSMENT: 1. Atrial fibrillation 2. Bacteremia 3. MSSA wound infection PLAN: 1. Continue local wound care with Santyl and packing daily 2. Antibodies per infectious disease Objective - Vital Signs Vital signs: Vital Signs Temp 99.9 F H 02/22/22 12:00 Pulse 111 H 02/22/22 15:17 Resp 30 H 02/22/22 15:00 BP 83/64 02/22/22 15:00 Pulse Ox 95 02/22/22 15:00 FiO2 40 02/22/22 15:02 Intake & Output 02/21/22 02/22/22 02/22/22 18:59 06:59 18:59 Intake Total 8625.623 8088.498 1311.889 Output Total 1140 1695 1305 Balance 595.681 -607.502 6.889 Weight 102 kg 101 kg Intake: IV 1272 412 734 0.9 KVO 200 240 180 LR bolus 1000 Piperacillin-Tazobactam 3 100 100 .375 gm In Sodium Chloride 0.9% 100 ml @ 25 mls/hr IVPB Q8HR [facility] Rx# :[id number] magnesium 200 potassium 200 pressure bag 72 72 54 Intake, IV Titration 183.681 400.498 377.889 Amount Amiodarone 360 mg In 181.109 169.443 Dextrose 5% in Water 200 ml @ 1 MG/MIN 33.333 mls/ hr IV .Q6H [facility] Rx#: [id number] Norepinephrine 32 mg In 9.219 43.222 55.788 Sodium Chloride 0.9% 218 ml @ 0.05 MCG/KG/MIN 2. 344 mls/hr IV .Q24H [facility] Rx#:[id number] propofoL 1,000 mg In 100 176.167 152.658 Empty Bag 1 bag @ 5 MCG/ KG/MIN 3.255 mls/hr IV . Q24H [facility] Rx#:[id number] propofoL 1,000 mg In 74.462 Empty Bag 1 bag @ 5 MCG/ KG/MIN 3.266 mls/hr IV . Q24H [facility] Rx#:[id number] Tube Feeding 280 275 200 Output: Urine 1140 1695 1305 Other: Voiding Method Indwelling Catheter Indwelling Catheter Indwelling Catheter # Bowel Movements 1 ABP, PAP, CO, CI - Last Documented Arterial Blood Pressure 92/51 - Labs CBC & Chem 7: 02/22/22 04:34 02/22/22 12:00 Labs: Abnormal Lab Results - Last 24 Hours (Table) 02/21/22 02/21/22 02/21/22 Range/Units 03:43 18:00 23:50 RBC (4.30-5.90) m/uL Hgb (13.0-17.5) gm/dL Hct (39.0-53.0) % MCH (25.0-35.0) pg MCHC (31.0-37.0) g/dL RDW (11.5-15.5) % Lymphocytes # (Manual) (1.0-4.8) k/uL ABG pH (7.35-7.45) ABG pO2 (83-108) mmHg ABG HCO3 (21-25) mmol/L ABG Total CO2 (19-24) mmol/L ABG Hematocrit (34.0-46.0) % Hemoglobin (13.0-17.5) gm/dL Potassium (3.5-5.1) mmol/L BUN (9-20) mg/dL Glucose (74-99) mg/dL POC Glucose (mg/dL) 220 H 207 H (70-110) mg/dL Calcium (8.4-10.2) mg/dL Magnesium 2.5 H (1.5-2.4) mg/dL Total Protein (6.3-8.2) g/dL Albumin (3.5-5.0) g/dL 02/22/22 02/22/22 02/22/22 Range/Units 04:34 04:34 05:26 RBC 3.34 L (4.30-5.90) m/uL Hgb 7.4 L (13.0-17.5) gm/dL Hct 27.0 L (39.0-53.0) % MCH 22.2 L (25.0-35.0) pg MCHC 27.4 L (31.0-37.0) g/dL RDW 19.0 H (11.5-15.5) % Lymphocytes # (Manual) 0.74 L (1.0-4.8) k/uL ABG pH (7.35-7.45) ABG pO2 (83-108) mmHg ABG HCO3 (21-25) mmol/L ABG Total CO2 (19-24) mmol/L ABG Hematocrit (34.0-46.0) % Hemoglobin (13.0-17.5) gm/dL Potassium 3.0 L (3.5-5.1) mmol/L BUN 49 H (9-20) mg/dL Glucose 178 H (74-99) mg/dL POC Glucose (mg/dL) 205 H (70-110) mg/dL Calcium 8.1 L (8.4-10.2) mg/dL Magnesium (1.5-2.4) mg/dL Total Protein 5.1 L (6.3-8.2) g/dL Albumin 2.6 L (3.5-5.0) g/dL 02/22/22 02/22/22 Range/Units 05:32 11:59 RBC (4.30-5.90) m/uL Hgb (13.0-17.5) gm/dL Hct (39.0-53.0) % MCH (25.0-35.0) pg MCHC (31.0-37.0) g/dL RDW (11.5-15.5) % Lymphocytes # (Manual) (1.0-4.8) k/uL ABG pH 7.47 H (7.35-7.45) ABG pO2 64 L (83-108) mmHg ABG HCO3 28 H (21-25) mmol/L ABG Total CO2 29 H (19-24) mmol/L ABG Hematocrit 23 L (34.0-46.0) % Hemoglobin 7.3 L (13.0-17.5) gm/dL Potassium (3.5-5.1) mmol/L BUN (9-20) mg/dL Glucose (74-99) mg/dL POC Glucose (mg/dL) 226 H (70-110) mg/dL Calcium (8.4-10.2) mg/dL Magnesium (1.5-2.4) mg/dL Total Protein (6.3-8.2) g/dL Albumin (3.5-5.0) g/dL Microbiology - Last 24 Hours (Table) 02/21/22 04:28 Gram Stain - Preliminary Sputum Sputum Culture - Preliminary 02/20/22 22:59 Blood Culture - Preliminary Blood No Growth after 24 hours
[2022-02-22] MEDS: ACETAMINOPHEN TAB 325 MG TAB PO PRN (16:33)
[2022-02-22 18:07] LABS: Glucose,Whole Blood 207 mg/dL (70-110)
[2022-02-22] MEDS: ASPIRIN 81 MG PO SCH (21:17)
[2022-02-22 23:29] LABS: Glucose,Whole Blood 228 mg/dL (70-110)
[2022-02-23 00:03] LABS: Glucose,Whole Blood 211 mg/dL (70-110)
[2022-02-23] MEDS: POTASSIUM CHLORIDE 20 MEQ in WATER FOR INJECTION 1 100ML.BAG IVPB SCH ×2 (00:29→02:30)
[2022-02-23] MEDS: IPRATROPIUM-ALBUTEROL 3 ML NEB INHALATION SCH ×6 (03:08→23:22)
[2022-02-23 05:08] LABS: Glucose,Whole Blood 186 mg/dL (70-110)
[2022-02-23] MEDS: NOREPINEPHRINE 32 MG in SODIUM CHLORIDE 0.9% 218 ML IV SCH (05:10)
[2022-02-23] MEDS: INSULIN ASPART (NovoLOG) 100 UNIT/ML VIAL SQ SCH ×3 (05:14→18:44)
[2022-02-23] MEDS: AMIODARONE 360 MG in DEXTROSE 5% IN WATER 200 ML IV SCH ×8 (05:15→23:03)
[2022-02-23 05:23] LABS: Anisocytosis Slight; HCT 27.5 % (39.0-53.0); HGB 7.5 gm/dL (13.0-17.5); Hypochromasia Marked; MCH 22.1 pg (25.0-35.0); MCHC 27.4 g/dL (31.0-37.0); MCV 80.5 fL (80.0-100.0); Mean Platelet Volume 8.1; Microcytosis Slight; Platelet Count 275 k/uL (150-450); Poikilocytosis Moderate; RBC 3.42 m/uL (4.30-5.90); RDW 18.9 % (11.5-15.5); WBC 8.9 k/uL (3.8-10.6)
[2022-02-23 05:25] LABS: ABG Base Excess 3.4 mmol/L; ABG HCO3 27 mmol/L (21-25); ABG Oxygen Saturation 97.9 % (94-97); ABG PCO2 36 mmHg (35-45); ABG PH 7.48 (7.35-7.45); ABG PO2 86 mmHg (83-108); ABG TCO2 28 mmol/L (19-24)
[2022-02-23 05:29] LABS: ABG Hematocrit 22 % (34.0-46.0); Allen Test Performed? no
[2022-02-23 05:38] LABS: Albumin 2.6 g/dL (3.5-5.0); Calcium 7.9 mg/dL (8.4-10.2); Magnesium 2.2 mg/dL (1.6-2.3); Potassium 4.1 mmol/L (3.5-5.1); Total Protein 5.2 g/dL (6.3-8.2)
--- NOTE | 2022-02-23 07:54 | P.PN ---
Subjective Progress Note Date: 02/23/22 Principal diagnosis: Heart failure with preserved ejection fraction/severe aortic stenosis This is a 76-year-old gentleman with aortic stenosis and chronic kidney disease as well as hypertension and dyslipidemia as well as multiple comorbid conditions was admitted to the hospital with acute on chronic diastolic heart failure and he developed respiratory failure requiring intubation and mechanical ventilation. The patient underwent recently an abdominal surgery and he did dai ve surgical site wound infection secondary to methicillin-resistant staph aureus. The patient was seen this morning. He continues to be intubated on mechanical ventilation. He felt an attempt to wean yesterday. He continues to be unstable and requiring norepinephrine. He has been in sinus rhythm with PACs. February 202021 The patient was seen this morning he was extubated yesterday. He remains tachypneic and slightly tachycardic and he is in mild respiratory distress. Otherwise he's off norepinephrine and he seems hemodynamically stable. He is in normal sinus mechanism was mild sinus tachycardia probably related to the agitation in mild respiratory distress. From a cardiac standpoint of view, we'll continue the current medical regimen. Continue following up with the patient February 212021 The patient was seen this morning. Unfortunately he was reintubated yesterday because of tachypnea and respiratory distress. He has been maintaining normal sinus mechanism. He was given Lasix IV yesterday. The chest x-ray from this morning showed an ARDS versus pulmonary edema. From the cardiac standpoint of view, we will continue the current medical regimen. He seems now to be hemodynamically stable and not on any vasopressors. February 222021 The patient remains intubated on mechanical ventilation. Unfortunately he went yesterday into A. fib with RVR. Because he was on norepinephrine I started the patient on amiodarone IV. He converted to normal sinus mechanism and currently is in sinus rhythm with PACs. He is on a new IV which I'm going to keep at this point. Regarding anticoagulation I would start the patient on Lovenox. He is hyper 1 week overall and he has been receiving Lasix IV. 02/13/2022 The patient was seen and evaluated this morning. Unfortunately he continues to be intubated on mechanical ventilation and he continues to be on norepinephrine to support the blood pressure. He converted to normal sinus mechanism on IV amiodarone. Yesterday he was started on Lovenox twice a day for atrial fibrillation. He has been responding to Lasix IV well and he has been diuresing very well. Kidney function continues to be stable. Overall the prognosis is poor. Objective - Vital Signs Vital signs: Vital Signs Temp 99.6 F 02/23/22 04:00 Pulse 88 02/23/22 07:00 Resp 24 02/23/22 07:41 BP 87/60 02/23/22 07:00 Pulse Ox 93 L 02/23/22 07:00 FiO2 40 02/23/22 07:41 Intake & Output 02/22/22 02/23/22 02/23/22 18:59 06:59 18:59 Intake Total 3517.538 1029.133 Output Total 1460 1100 Balance 287.583 432.133 Weight 101.5 kg Intake: IV 912 638 0.9 KVO 240 260 Piperacillin-Tazobactam 3 200 100 .375 gm In Sodium Chloride 0.9% 100 ml @ 25 mls/hr IVPB Q8HR [facility] Rx# :[id number] magnesium 200 potassium 200 200 pressure bag 72 78 Intake, IV Titration 610.583 594.133 Amount Amiodarone 360 mg In 346.108 396.109 Dextrose 5% in Water 200 ml @ 1 MG/MIN 33.333 mls/ hr IV .Q6H [facility] Rx#: [id number] Norepinephrine 32 mg In 64.475 28.221 Sodium Chloride 0.9% 218 ml @ 0.05 MCG/KG/MIN 2. 344 mls/hr IV .Q24H [facility] Rx#:[id number] propofoL 1,000 mg In 200.000 169.803 Empty Bag 1 bag @ 5 MCG/ KG/MIN 3.255 mls/hr IV . Q24H [facility] Rx#:[id number] Tube Feeding 225 300 Output: Urine 1460 1100 Other: Voiding Method Indwelling Catheter Indwelling Catheter Indwelling Catheter # Bowel Movements 1 ABP, PAP, CO, CI - Last Documented Arterial Blood Pressure 99/51 - Constitutional General appearance: Present: no acute distress - Respiratory Respiratory: bilateral: diminished - Cardiovascular Rhythm: regular Heart sounds: normal: S1, S2 Abnormal Heart Sounds: Present: systolic murmur - Labs CBC & Chem 7: 02/23/22 05:03 02/23/22 05:03 Labs: Abnormal Lab Results - Last 24 Hours (Table) 02/22/22 02/22/22 02/22/22 Range/Units 11:59 18:05 23:28 RBC (4.30-5.90) m/uL Hgb (13.0-17.5) gm/dL Hct (39.0-53.0) % MCH (25.0-35.0) pg MCHC (31.0-37.0) g/dL RDW (11.5-15.5) % ABG pH (7.35-7.45) ABG HCO3 (21-25) mmol/L ABG Total CO2 (19-24) mmol/L ABG O2 Saturation (94-97) % ABG Hematocrit (34.0-46.0) % Hemoglobin (13.0-17.5) gm/dL BUN (9-20) mg/dL Creatinine (0.66-1.25) mg/dL Glucose (74-99) mg/dL POC Glucose (mg/dL) 226 H 207 H 228 H (70-110) mg/dL Calcium (8.4-10.2) mg/dL Total Protein (6.3-8.2) g/dL Albumin (3.5-5.0) g/dL 02/23/22 02/23/22 02/23/22 Range/Units 00:01 05:03 05:03 RBC 3.42 L (4.30-5.90) m/uL Hgb 7.5 L (13.0-17.5) gm/dL Hct 27.5 L (39.0-53.0) % MCH 22.1 L (25.0-35.0) pg MCHC 27.4 L (31.0-37.0) g/dL RDW 18.9 H (11.5-15.5) % ABG pH (7.35-7.45) ABG HCO3 (21-25) mmol/L ABG Total CO2 (19-24) mmol/L ABG O2 Saturation (94-97) % ABG Hematocrit (34.0-46.0) % Hemoglobin (13.0-17.5) gm/dL BUN 47 H (9-20) mg/dL Creatinine 1.31 H (0.66-1.25) mg/dL Glucose 175 H (74-99) mg/dL POC Glucose (mg/dL) 211 H (70-110) mg/dL Calcium 7.9 L (8.4-10.2) mg/dL Total Protein 5.2 L (6.3-8.2) g/dL Albumin 2.6 L (3.5-5.0) g/dL 02/23/22 02/23/22 Range/Units 05:05 05:23 RBC (4.30-5.90) m/uL Hgb (13.0-17.5) gm/dL Hct (39.0-53.0) % MCH (25.0-35.0) pg MCHC (31.0-37.0) g/dL RDW (11.5-15.5) % ABG pH 7.48 H (7.35-7.45) ABG HCO3 27 H (21-25) mmol/L ABG Total CO2 28 H (19-24) mmol/L ABG O2 Saturation 97.9 H (94-97) % ABG Hematocrit 22 L (34.0-46.0) % Hemoglobin 7.3 L (13.0-17.5) gm/dL BUN (9-20) mg/dL Creatinine (0.66-1.25) mg/dL Glucose (74-99) mg/dL POC Glucose (mg/dL) 186 H (70-110) mg/dL Calcium (8.4-10.2) mg/dL Total Protein (6.3-8.2) g/dL Albumin (3.5-5.0) g/dL Microbiology - Last 24 Hours (Table) 02/20/22 22:59 Blood Culture - Preliminary Blood No Growth after 48 hours 02/21/22 04:28 Gram Stain - Preliminary Sputum Sputum Culture - Preliminary Assessment and Plan Assessment: Assessment Acute on chronic heart failure with preserved ejection fraction Acute coronary syndrome likely related to hypoxemia/sepsis Acute hypoxic respiratory failure Severe aortic stenosis Cardiac arrhythmia into of paroxysmal atrial fibrillation Plan The right wean the patient from norepinephrine Continue amiodarone IV Continue anticoagulation using Lovenox Overall poor prognosis
[2022-02-23] MEDS: PIPERACILLIN-TAZOBACTAM 3.375 GM in SODIUM CHLORIDE 0.9% 100 ML IVPB SCH ×2 (08:00→16:54)
[2022-02-23] MEDS: FUROSEMIDE 10 MG/ML 4 ML VIAL IV SCH ×2 (08:01→20:15)
[2022-02-23] MEDS: PANTOPRAZOLE 40 MG/10 ML VIAL IVP SCH (08:01)
[2022-02-23] MEDS: CHLORHEXIDINE GLUCONATE 15 ML CUP MUCOUS MEM SCH ×2 (08:01→20:15)
[2022-02-23] MEDS: ENOXAPARIN 100 MG/ML SYRINGE SQ SCH ×2 (08:01→20:15)
[2022-02-23] MEDS: LACTULOSE 20 GM/30 ML CUP PO SCH (08:02)
[2022-02-23] MEDS: COLLAGENASE 250 UNIT/GM OINTMENT 30 GM TUBE TOPICAL SCH (08:02)
[2022-02-23] MEDS: OXYBUTYNIN CHLORIDE 5 MG TAB PO SCH ×2 (08:02→20:15)
--- NOTE | 2022-02-23 08:05 | XR ---
EXAMINATION TYPE: XR chest 1V portable, semiupright DATE OF EXAM: 02/23/2022 Comparison: 02/22/2022 Clinical History: 76-year-old male Tube placement Findings: ET tube satisfactory. NG tube courses below the diaphragm. Right subclavian CVC tip in the right atri um. Leftward patient rotation ultrasonography mediastinal contours. Heart likely borderline to mildly enlarged. Continued bibasilar opacities as well as mild patchy/interstitial hazy density throughout the remainder of the lungs. Impression: Continued partially layering bilateral pleural effusions with adjacent atelectasis and/or consolidati on. Mild patchy pulmonary edema probably similar or slightly improved.
[2022-02-23] MEDS ORDERED: ANIDULAFUNGIN 200 MG in SODIUM CHLORIDE 0.9% 200 ML IVPB ONE (08:40)
--- NOTE | 2022-02-23 09:24 | P.PN ---
Subjective patient is seen in follow-up for acute kidney injury. Renal function fairly stable. On IV Lasix. Nonoliguric. Intubated. On amiodarone drip. Also on Levophed. receiving tube feeds. Vital signs are stable. on vasopressor support. General: resting in bed. HEENT: intubated. LUNGS: Breath sounds decreased. HEART: irregular rate and rhythm. ABDOMEN: soft, no distention. EXTREMITITES: 2+ edema. Objective - Vital Signs Vital signs: Vital Signs Temp 99.0 F 02/23/22 08:00 Pulse 85 02/23/22 09:00 Resp 25 H 02/23/22 09:00 BP 97/60 02/23/22 09:00 Pulse Ox 98 02/23/22 09:00 FiO2 40 02/23/22 09:00 Intake & Output 02/22/22 02/23/22 02/23/22 18:59 06:59 18:59 Intake Total 4466.985 8846.133 287.163 Output Total 1460 1100 335 Balance 287.583 432.133 -47.837 Weight 101.5 kg Intake: IV 912 638 152 0.9 KVO 240 260 40 Piperacillin-Tazobactam 3 200 100 100 .375 gm In Sodium Chloride 0.9% 100 ml @ 25 mls/hr IVPB Q8HR [facility] Rx# :[id number] magnesium 200 potassium 200 200 pressure bag 72 78 12 Intake, IV Titration 610.583 594.133 85.163 Amount Amiodarone 360 mg In 346.108 396.109 Dextrose 5% in Water 200 ml @ 1 MG/MIN 33.333 mls/ hr IV .Q6H [facility] Rx#: [id number] Norepinephrine 32 mg In 64.475 28.221 11.438 Sodium Chloride 0.9% 218 ml @ 0.05 MCG/KG/MIN 2. 344 mls/hr IV .Q24H [facility] Rx#:[id number] propofoL 1,000 mg In 200.000 169.803 73.725 Empty Bag 1 bag @ 5 MCG/ KG/MIN 3.255 mls/hr IV . Q24H [facility] Rx#:[id number] Tube Feeding 225 300 50 Output: Urine 1460 1100 335 Other: Voiding Method Indwelling Catheter Indwelling Catheter Indwelling Catheter # Bowel Movements 1 ABP, PAP, CO, CI - Last Documented Arterial Blood Pressure 112/56 - Labs CBC & Chem 7: 02/23/22 05:03 02/23/22 05:03 Labs: Abnormal Lab Results - Last 24 Hours (Table) 02/22/22 02/22/22 02/22/22 Range/Units 11:59 18:05 23:28 RBC (4.30-5.90) m/uL Hgb (13.0-17.5) gm/dL Hct (39.0-53.0) % MCH (25.0-35.0) pg MCHC (31.0-37.0) g/dL RDW (11.5-15.5) % ABG pH (7.35-7.45) ABG HCO3 (21-25) mmol/L ABG Total CO2 (19-24) mmol/L ABG O2 Saturation (94-97) % ABG Hematocrit (34.0-46.0) % Hemoglobin (13.0-17.5) gm/dL BUN (9-20) mg/dL Creatinine (0.66-1.25) mg/dL Glucose (74-99) mg/dL POC Glucose (mg/dL) 226 H 207 H 228 H (70-110) mg/dL Calcium (8.4-10.2) mg/dL Total Protein (6.3-8.2) g/dL Albumin (3.5-5.0) g/dL 02/23/22 02/23/22 02/23/22 Range/Units 00:01 05:03 05:03 RBC 3.42 L (4.30-5.90) m/uL Hgb 7.5 L (13.0-17.5) gm/dL Hct 27.5 L (39.0-53.0) % MCH 22.1 L (25.0-35.0) pg MCHC 27.4 L (31.0-37.0) g/dL RDW 18.9 H (11.5-15.5) % ABG pH (7.35-7.45) ABG HCO3 (21-25) mmol/L ABG Total CO2 (19-24) mmol/L ABG O2 Saturation (94-97) % ABG Hematocrit (34.0-46.0) % Hemoglobin (13.0-17.5) gm/dL BUN 47 H (9-20) mg/dL Creatinine 1.31 H (0.66-1.25) mg/dL Glucose 175 H (74-99) mg/dL POC Glucose (mg/dL) 211 H (70-110) mg/dL Calcium 7.9 L (8.4-10.2) mg/dL Total Protein 5.2 L (6.3-8.2) g/dL Albumin 2.6 L (3.5-5.0) g/dL 02/23/22 02/23/22 Range/Units 05:05 05:23 RBC (4.30-5.90) m/uL Hgb (13.0-17.5) gm/dL Hct (39.0-53.0) % MCH (25.0-35.0) pg MCHC (31.0-37.0) g/dL RDW (11.5-15.5) % ABG pH 7.48 H (7.35-7.45) ABG HCO3 27 H (21-25) mmol/L ABG Total CO2 28 H (19-24) mmol/L ABG O2 Saturation 97.9 H (94-97) % ABG Hematocrit 22 L (34.0-46.0) % Hemoglobin 7.3 L (13.0-17.5) gm/dL BUN (9-20) mg/dL Creatinine (0.66-1.25) mg/dL Glucose (74-99) mg/dL POC Glucose (mg/dL) 186 H (70-110) mg/dL Calcium (8.4-10.2) mg/dL Total Protein (6.3-8.2) g/dL Albumin (3.5-5.0) g/dL Microbiology - Last 24 Hours (Table) 02/20/22 22:59 Blood Culture - Preliminary Blood No Growth after 48 hours 02/21/22 04:28 Gram Stain - Preliminary Sputum Sputum Culture - Preliminary Assessment and Plan Plan: Assessment: 1. Acute kidney injury secondary to ATN secondary to septic shock. Baseline creatinine near 1 and peaked at 1.63 this admission - fairly stable at 1.31 today. No hydronephrosis noted on CAT scan done this admission. 2. Septic shock secondary to abdominal wall infection as well as pneumonia. ID following. 3. Acute on chronic systolic CHF with ejection fraction of 40-45% with severe aortic stenosis. 4. Acute hypoxic respiratory failure. 5. Diabetes mellitus. 6. Volume overload. improving with diuresis. 7. A. fib with RVR maintained on amiodarone drip. 8. Hypokalemia from diuresis. replaced. Better. Plan: maintain IV Lasix 40 mg twice daily. Wean FiO2 and vasopressors. Maintain tube feeds. Avoid nephrotoxins. Continue to monitor renal function and urine output.
--- NOTE | 2022-02-23 10:29 | P.PN ---
Subjective Progress Note Date: 02/23/22 Principal diagnosis: Respiratory failure. Reevaluated today on 02/14/22, remains in the ICU, intubated and mechanically ventilated. Patient is on assist control rate of 20, volume 500 FiO2 40% and I cut it down to 35% PEEP of 8 and I cut it down to 5. ABG today showed a pO2 of 184 pCO2 39 pH of 7.48. Patient is requiring norepinephrine at 0.09 mcg/kg/m is on IV fluid 0.9 normal saline at 75 mL per hour and he is on propofol at 40 mcg/kg/m. Receiving vital HPI 30 mL per hour. Patient remains on Zosyn, considering his CVP is only 7 and urine output is marginal I will go ahead and recommended a liter bolus of 0.9 normal saline. We will cut down the propofol and hopefully cut down on the norepinephrine if his blood pressure improves. May improve with fluid bolus and with cutting down the dose of propofol WBC count is 8.5 hemoglobin 7.6 hematocrit is 27.6 basic metabolic profile is normal bicarb is normal BUN is 41 creatinine 1.2, improving since yesterday creatinine was 1.51 a chest x-ray showed pleural parenchymal changes, air bronchogram noted in the left retrocardiac area, highly suspicious for pneumonia. Reevaluated today on 02/15/22, patient remains on the ventilator, his on assist control rate of 20 to light and 500 FiO2 35% PEEP of 5 ABG showed a pO2 of 100 pCO2 38 pH of 7.49. Patient remains on antibiotics in the form of Zosyn he is also on diuretics, the diuretics was increased since the patient continues to have findings suggestive of mild fluid overload and he also has findings suggestive of pneumonia. Chest x-ray is showing cardiomegaly with pulmonary vascular congestion and bilateral pleural effusion and bibasilar airspace disease WBC count is 8.1 hemoglobin is 7.7, basic metabolic profile is normal renal profile is normal, creatinine has been steadily improving since admission, it is 1.01 today. Sputum cultures are negative except for some yeast species and his wound culture is showing presumptive staph aureus, final sensitivities pending. In the meantime the patient is on Zosyn. He did receive vancomycin initially. Reevaluated today on 02/16/22, patient remains in the ICU, intubated and mechanically ventilated. He is on assist control rate of 20- tidal volume of 500 FiO2 35% PEEP of 5. ABG showed a pO2 of 100 pCO2 40 pH of 7.50 patient remains sedated, he is requiring more and norepinephrine overnight, he is on pro pofol at 35 mcg/kg/m, norepinephrine at 0.12 mcg/kg/m patient has not had a bowel movement since admission, lactulose. Today on plan to give the patient fluid boluses 500 mL at a time, and I plan to hold his Lasix. Hoping that fluid boluses will improve his blood pressure and hopefully down on the dose of norepinephrine. Patient remains on vital HPI 38 mL per hour. His antibiotics were transitioned to Unasyn since the patient has mostly staph aureus, MSSA in the wound culture. Yesterday the patient weaned but could not be extubated mostly because of worsening tachycardia and worsening endotracheal secretions. Hence I had to place him back on assist control mode of mechanical ventilation and did not go further to extubate. Labs today demonstrate is 8.6 and global was 8.1 lites are normal, renal profile is normal. Sputum cultures are negative blood cultures are - abdominal wound cultures are positive for MSSA. Progress note dated 02/17/2022. This is a 76-year-old male who was admitted on February 12, for her hypercapnic respiratory failure, CO2 narcosis, and CHF. The patient was intubated on February 13. He remains on the mechanical ventilator. The patient is on volume assist control, rate 20, tidal volume 500, FiO2 35%, and PEEP of 5. Blood gases show pO2 78, pCO2 40, and a pH is 7.47. The patient remains on propofol, at 40 mcg/kg/m, norepinephrine at 8 mcg/m, saline at 20 mL an hour, and vital high protein at 30 mL an hour, which is goal. The patient remains on Unasyn. White count 7.8, hemoglobin 7.7, hematocrit 27.6, and platelet count 282,000. Sodium 139, potassium 3.8, chlorides 104, CO2 26, BUN 20, and creatinine 0.83. Abdominal wound cultures are showing Staphylococcus aureus, and anaerobic gram- negative bacilli. Chest x-ray shows pulmonary vascular congestion, small to moderate bilateral pleural effusions, and cardiomegaly. Progress note dated 02/18/2022. 76-year-old male admitted on February 12, for hypercapnic respiratory failure, CO2 narcosis, and CHF. The patient was intubated the following day, on February 13. He remains on the mechanical ventilator. The patient is on volume assist control, rate 20, tidal volume 500, FiO2 85%, PEEP of 5. Blood gases show a PaO2 of 85, pCO2 41, and a pH is 7.46. The patient failed his daily interruption of sedation yesterday. We will attempted again today. Currently, norepinephrine is off, and propofol is off. He is getting saline at 20 mL an hour, and vital high protein at 30 mL an hour, which is goal. White count 9.8, hemoglobin 8, hematocrit 28.8, and platelet count 332,000. Sodium, potassium, chloride, CO2, anion gap, are all normal. BUN is 21, with a creatinine of 0.81. Albumin is 2.6. Chest x-ray shows diffuse airspace disease, and small effusions, consistent with CHF. Progress note dated 02/19/2022. 76-year-old male admitted on February 12 for hypercapnic respiratory failure and CHF. The patient has been having daily interruption of sedation and spontaneous breathing trials. We did not think he was ready yesterday. He currently remains on the ventilator. He is on the volume assist control, rate 20, tidal volume 500, FiO2 35%, and PEEP of 5. Blood gases show pO2 105, he CO2 39, and pH is 7.46. The patient's on propofol at 30 mcg/kg/m, norepinephrine at 5 mcg/m, saline at 10 mL an hour, and vital high protein at 30 mL an hour, which is goal. We will again attempt a DIS/SBT, today, on both pressure support and CPAP. White count 8.2, hemoglobin 7.6, hematocrit 27.7, and platelet count 288,000. Sodium 139, potassium 4, chlorides 103, CO2 26, BUN 28, and creatinine 0.91. The patient's chest x-ray suggests that the endotracheal tube should be pushed down about a centimeter or 2. In addition, the x-ray is consistent with either infiltrate and/or fluid overload. Progress note dated 02/20/2022. 76-year-old male admitted on February 12 for hypercapnic respiratory failure and CHF. The patient was extubated yesterday, February 19. Currently, he is on BiPAP, with settings of 15/5 and 50%. He remains on saline at 10 mL an hour. He also remains on Unasyn as his antibiotic. Laboratory data today includes a white count of 11.8, hemoglobin 8.2, hematocrit 31.6, and a platelet count 362,000. Sodium 139, potassium 4.5, chlorides 102, CO2 25, anion gap 12, BUN 35, and creatinine 1.09. Abdominal wound cultures show evidence of staph a ureus, and anaerobic gram-negative saline. No chest x-ray today as yet. Progress note dated 02/21/2022. 76-year-old male admitted on February 12 for hypercapnic respiratory failure and CHF. The patient was extubated on February 19. Unfortunately last night, the patient's respiratory status declined, and he needed to be reintubated. He was reintubated after midnight, on February 21. Currently, he is on volume assist control, rate 24, tidal volume 450, FiO2 60%, and PEEP of 5. Blood gases show pO2 145, pCO2 37, and pH is 7.41. Those blood gases were done on 80% and the FiO2 was then dropped to 60%. The patient's on norepinephrine at 20 mcg/m, propofol at 45 mcg/kg/m, and 0.9 at KVO. We'll resume tube feedings. I believe he was on vital high protein 30 mL an hour which was goal. We'll also place a PICC line, and given 1-2 L of lactated Ringer's, to see we can stop the norepin ephrine. The patient remains on Zosyn. White count 11.2, hemoglobin 8, hematocrit 30.4, and platelet count normal. Sodium 141, potassium 4.4, chlorides 104, CO2 22, BUN 52, creatinine 1.63. Albumin 2.9. Chest x-ray continues to show diffuse bilateral infiltrates, possibly consistent with either pneumonia, acute lung injury, or pulmonary edema. Progress note dated 02/22/2022. 76-year-old male admitted on February 12 for hypercapnic respiratory failure and congestive heart failure. The patient was extubated on February 19, but unfortunately, required reintubation, on February 21. The patient remains on mechanical ventilator. The patient is on volume assist control, rate 24, tidal volume 450, FiO2 40%, PEEP of 5. Blood gases show pO2 of 64, pCO2 38, and a pH is 7.47. The patient remains on propofol at 25 mcg/kg/m, norepinephrine at 8 mcg/m, amiodarone at 1 mg/m, and Lovenox. In addition, the patient's getting saline at 20 mL an hour, and vital high protein, at goal, which is 25 mL an hour. The patient remains on IV Zosyn. Family apparently make the patient a DO NOT RESUSCITATE. White count 8.2, hemoglobin 7.4, hematocrit 27, and platelet count 323,000. Sodium 141, potassium 3, chlorides 105, CO2 25, BUN 49, and creatinine 1.22. Albumin is 2.6. Chest x-ray findings are largely unchanged. Progress note dated 02/23/2022. 76-year-old male, admitted on February 12, for hypercapnic respiratory failure and congestive heart failure. The patient was extubated initially on February 19, but unfortunately, failed, and required reintubation on February 21. He remains on the mechanical ventilator. The patient is on volume assist control, rate 24, tidal volume 450, FiO2 40%, and a PEEP of 5. The patient is currently on propofol at 15 mcg/kg/m, vital high protein at 25 mL an hour, which is goal, amiodarone at 1 mg/m, and norepinephrine at 10 mcg/m. He is also receiving saline at 20 mL an hour. Blood gases show pO2 of 86, pCO2 36, and a pH is 7.48. White count 8.9, hemoglobin 7.5, hematocrit 27.5, and platelet count 275,000. Sodium 140, potassium 4.1, chlorides 104, CO2 26, BUN 47, and creatinine 1.31. Albumin is 2.6. Chest x-ray shows bilateral pleural effusions, and basilar atelectasis. There are also patchy infiltrates. Objective - Vital Signs Vital signs: Vital Signs Temp 99.0 F 02/23/22 08:00 Pulse 85 02/23/22 09:00 Resp 25 H 02/23/22 09:00 BP 97/60 02/23/22 09:00 Pulse Ox 98 02/23/22 09:00 FiO2 40 02/23/22 09:00 Intake & Output 02/22/22 02/23/22 02/23/22 18:59 06:59 18:59 Intake Total 1245.938 7827.133 434.939 Output Total 1460 1100 335 Balance 287.583 432.133 99.939 Weight 101.5 kg Intake: IV 912 638 152 0.9 KVO 240 260 40 Piperacillin-Tazobactam 3 200 100 100 .375 gm In Sodium Chloride 0.9% 100 ml @ 25 mls/hr IVPB Q8HR [facility] Rx# :[id number] magnesium 200 potassium 200 200 pressure bag 72 78 12 Intake, IV Titration 610.583 594.133 232.939 Amount Amiodarone 360 mg In 346.108 396.109 147.776 Dextrose 5% in Water 200 ml @ 1 MG/MIN 33.333 mls/ hr IV .Q6H [facility] Rx#: [id number] Norepinephrine 32 mg In 64.475 28.221 11.438 Sodium Chloride 0.9% 218 ml @ 0.05 MCG/KG/MIN 2. 344 mls/hr IV .Q24H [facility] Rx#:[id number] propofoL 1,000 mg In 200.000 169.803 73.725 Empty Bag 1 bag @ 5 MCG/ KG/MIN 3.255 mls/hr IV . Q24H [facility] Rx#:[id number] Tube Feeding 225 300 50 Output: Urine 1460 1100 335 Other: Voiding Method Indwelling Catheter Indwelling Catheter Indwelling Catheter # Bowel Movements 1 ABP, PAP, CO, CI - Last Documented Arterial Blood Pressure 112/56 - Exam No acute distress, reintubated, with an orally placed endotracheal tube and NG tube. Sedated. HEENT examination is grossly unremarkable. Neck supple. Full range of motion. No adenopathy thyromegaly or neck vein distention. Cardiovascular examination reveals regular rhythm rate. S1-S2 normal. No S3 or S4. A systolic murmur is noted. Heart sounds are distant. Heart rate 92 bpm. Lungs reveal scattered bilateral rhonchi. No wheezes. No crackles. Breath sounds equal bilaterally. Saturations are 98 %. Abdomen soft, with minimal bowel sounds. Surgical dressings are noted. Extremities are intact. No cyanosis clubbing or edema. Skin is without rash or lesion. Neurologic examination cannot be properly assessed. - Labs CBC & Chem 7: 02/23/22 05:03 02/23/22 05:03 Labs: Abnormal Lab Results - Last 24 Hours (Table) 02/22/22 02/22/22 02/22/22 Range/Units 11:59 18:05 23:28 RBC (4.30-5.90) m/uL Hgb (13.0-17.5) gm/dL Hct (39.0-53.0) % MCH (25.0-35.0) pg MCHC (31.0-37.0) g/dL RDW (11.5-15.5) % ABG pH (7.35-7.45) ABG HCO3 (21-25) mmol/L ABG Total CO2 (19-24) mmol/L ABG O2 Saturation (94-97) % ABG Hematocrit (34.0-46.0) % Hemoglobin (13.0-17.5) gm/dL BUN (9-20) mg/dL Creatinine (0.66-1.25) mg/dL Glucose (74-99) mg/dL POC Glucose (mg/dL) 226 H 207 H 228 H (70-110) mg/dL Calcium (8.4-10.2) mg/dL Total Protein (6.3-8.2) g/dL Albumin (3.5-5.0) g/dL 02/23/22 02/23/22 02/23/22 Range/Units 00:01 05:03 05:03 RBC 3.42 L (4.30-5.90) m/uL Hgb 7.5 L (13.0-17.5) gm/dL Hct 27.5 L (39.0-53.0) % MCH 22.1 L (25.0-35.0) pg MCHC 27.4 L (31.0-37.0) g/dL RDW 18.9 H (11.5-15.5) % ABG pH (7.35-7.45) ABG HCO3 (21-25) mmol/L ABG Total CO2 (19-24) mmol/L ABG O2 Saturation (94-97) % ABG Hematocrit (34.0-46.0) % Hemoglobin (13.0-17.5) gm/dL BUN 47 H (9-20) mg/dL Creatinine 1.31 H (0.66-1.25) mg/dL Glucose 175 H (74-99) mg/dL POC Glucose (mg/dL) 211 H (70-110) mg/dL Calcium 7.9 L (8.4-10.2) mg/dL Total Protein 5.2 L (6.3-8.2) g/dL Albumin 2.6 L (3.5-5.0) g/dL 02/23/22 02/23/22 Range/Units 05:05 05:23 RBC (4.30-5.90) m/uL Hgb (13.0-17.5) gm/dL Hct (39.0-53.0) % MCH (25.0-35.0) pg MCHC (31.0-37.0) g/dL RDW (11.5-15.5) % ABG pH 7.48 H (7.35-7.45) ABG HCO3 27 H (21-25) mmol/L ABG Total CO2 28 H (19-24) mmol/L ABG O2 Saturation 97.9 H (94-97) % ABG Hematocrit 22 L (34.0-46.0) % Hemoglobin 7.3 L (13.0-17.5) gm/dL BUN (9-20) mg/dL Creatinine (0.66-1.25) mg/dL Glucose (74-99) mg/dL POC Glucose (mg/dL) 186 H (70-110) mg/dL Calcium (8.4-10.2) mg/dL Total Protein (6.3-8.2) g/dL Albumin (3.5-5.0) g/dL Microbiology - Last 24 Hours (Table) 02/20/22 22:59 Blood Culture - Preliminary Blood No Growth after 48 hours 02/21/22 04:28 Gram Stain - Preliminary Sputum Sputum Culture - Preliminary Assessment and Plan Assessment: Acute hypoxemic and hypercapnic respiratory failure, requiring intubation and mechanical ventilation on February 13, 2022, status post extubation on 02/19/2022. Acute respiratory failure, requiring reintubation on 02/21/2022. Probable sepsis/septic shock. Healthcare acquired pneumonia. Surgical site wound infection, secondary to methicillin sensitive Staphylococcus aureus. Acute kidney injury. Severe aortic stenosis. Chronic diastolic CHF. Type 2 diabetes mellitus. Chronic anemia. Benign essential hypertension. Chronic polycythemia. History of bowel resection, December 2021. Plan: Plan dated 02/17/2022. The patient will have a daily interruption of sedation. He may or may not be ready for a spontaneous breathing trial. Labs, x-rays, and medications are rev iewed. He currently remains on propofol at 40 mcg/kg/m, and a modest dose of norepinephrine at 8 mcg/m. He is receiving tube feedings. He remains on Unasyn. We will continue to follow make recommendations along the way. Prognosis is certainly guarded. We do continue GI and DVT prophylaxis. Plan dated 02/18/2022. The patient will be given another daily interruption of sedation today. Hopef ully, he'll do better than he did yesterday. Currently, norepinephrine has been weaned off. Remains on tube feedings. Blood gases are consistent with a mild metabolic alkalosis. Labs, x-rays, and medications are reviewed. Prognosis is certainly guarded. We will continue to follow the patient and make recommendations along the way. We continue GI and DVT prophylaxis. Plan dated 02/19/2022. The patient is again seen today in room 262. Labs, x-rays, and medications are reviewed. The patient remains on propofol at 30 mcg/kg/m, and norepinephrine at 5 mcg/m. We will attempt another daily interruption of sedation and spontaneously breathing trial. We are hoping that he is ready for extubation. This will depend on his mental status, his weaning parameters, and his cuff leak. We will continue to follow and make recommendations along the way. Plan dated 02/21/2020. The patient was extubated yesterday, February 19, to BiPAP. He remains on BiPAP with settings of 15/5 and 50%. Getting saline at 10 mL an hour. He remains on Unasyn for his surgical wound infections. The patient is still very tenuous. We'll continue to watch him in the intensive care unit. He may require reintubation. The patient will be trialed off of BiPAP this morning. Labs, x-rays, and medications are reviewed. Prognosis is certainly very guarded. We'll follow make recommendations along the way. Plan dated 02/21/2022. The patient was initially extubated on February 19. Unfortunately, for worsening respiratory status, he was reintubated on February 21. She remains on the ventilator. The patient is now on norepinephrine, and propofol. We will resume tube feedings. The patient will need a PICC line. In addition, we'll give him 1-2 L of lactated Ringer's to see we can wean off the norepinephrine. Additional recommendations and suggestions are forthcoming. Labs, x-rays, medications are all reviewed. Prognosis is certainly guarded. The patient may be headed towards a tracheostomy and PEG tube. Plan dated 02/22/2022. The patient was unfortunately reintubated on 02/21/2022. He was initially extubated on February 19. The patient is now a DO NOT RESUSCITATE patient with instructions. The patient remains on propofol for sedation. In addition, the patient is on amiodarone, and norepinephrine. The patient is getting tube feedings at goal. The patient remains on Zosyn. Labs, x-rays, and medications are reviewed. Overall prognosis remains very poor. Plan dated 02/23/2022. The patient is currently on the ventilator. The patient remains on multiple drips including amiodarone, norepinephrine, propofol, and saline. The patient is receiving tube feedings at goal. Blood gases are reasonable. Labs, and x- rays are reviewed. Medications are reviewed. Apparently the family is having a meeting tomorrow, with palliative care services. They may choose to go comfort care. We will continue to follow make recommendations along the way. The patient remains on Zosyn. Because of ongoing elevations of temperature, I add Eraxis, empirically. Time with Patient: Greater than 30
--- NOTE | 2022-02-23 11:26 | P.PN ---
Subjective Progress Note Date: 02/23/22 Patient was seen and examined. Unfortunately, patient was reintubated on 11/21. Ventilator settings rate 24, tidal volume 450, FiO2 40%, PEEP of 5. Continues to be on Levophed. Heart rate improved to low 100s. CBC shows hemoglobin of 7.5. BMP shows BUN of 47, creatinine of 1.31, calcium of 7.9, albumin 2.6. General: Intubated Derm: warm, dry Head: atraumatic, normocephalic, symmetric Eyes: EOMI, no lid lag, anicteric sclera Mouth: no lip lesion, mucus membranes moist Cardiovascular: Tachycardic, irregular, systolic ejection murmur Lungs: Coarse breath sounds bilaterally, ventilator dependent Abdominal: soft, abdominal dressing c/d/i Ext: no gross muscle atrophy, no edema, no contractures Neuro: Unable to accurately assess Psych: Unable to accurately assess Assessment/plan: Hypokalemia - Replace and monitor Atrial fibrillation with RVR - Continue amiodarone drip - Cardiology on board Acute Hypoxemic and Hypercarbic Respiratory Failure Septic Shock with Toxic/Metabolic Encephalopathy Hospital Acquired Pneumonia Surgical Site Infection s/p Bowel Resection Acute Kidney Injury - Extubated 02/19, reintubated 02/21/2022 - Admit to ICU, telemetry - ICU, ID consultation appreciated - Wound Care consult - Surgery consult - Nephrology consult - Bronchodilators - Zosyn - f/u BCx - NGTD, Wound Cx - staph aureus - Lasix 40 mg IV today for 1 - Levophed - Monitor I/Os, UOP - Daily labs Severe Aortic Stenosis Chronic Diastolic Heart Failure - Strict I/Os, daily weights - Cardiology on board - Echocardiogram shows EF of 45% with moderate concentric LVH, severe calcification of the mitral valve, severe aortic stenosis Normocytic anemia -Stable DM - Insulin sliding scale SC Q6H NO CODE but OK with intubation DVT PPX heparin SC BID Objective - Vital Signs Vital signs: Vital Signs Temp 99.0 F 02/23/22 08:00 Pulse 80 02/23/22 11:17 Resp 25 H 02/23/22 10:00 BP 103/68 02/23/22 10:00 Pulse Ox 98 02/23/22 10:00 FiO2 40 02/23/22 10:48 Intake & Output 02/22/22 02/23/22 02/23/22 18:59 06:59 18:59 Intake Total 3891.044 6232.133 496.331 Output Total 1460 1100 685 Balance 287.583 432.133 -188.669 Weight 101.5 kg Intake: IV 912 638 178 0.9 KVO 240 260 60 Piperacillin-Tazobactam 3 200 100 100 .375 gm In Sodium Chloride 0.9% 100 ml @ 25 mls/hr IVPB Q8HR [facility] Rx# :[id number] magnesium 200 potassium 200 200 pressure bag 72 78 18 Intake, IV Titration 610.583 594.133 243.331 Amount Amiodarone 360 mg In 346.108 396.109 147.776 Dextrose 5% in Water 200 ml @ 1 MG/MIN 33.333 mls/ hr IV .Q6H [facility] Rx#: [id number] Norepinephrine 32 mg In 64.475 28.221 21.830 Sodium Chloride 0.9% 218 ml @ 0.05 MCG/KG/MIN 2. 344 mls/hr IV .Q24H [facility] Rx#:[id number] propofoL 1,000 mg In 200.000 169.803 73.725 Empty Bag 1 bag @ 5 MCG/ KG/MIN 3.255 mls/hr IV . Q24H [facility] Rx#:[id number] Tube Feeding 225 300 75 Output: Urine 1460 1100 685 Other: Voiding Method Indwelling Catheter Indwelling Catheter Indwelling Catheter # Bowel Movements 1 ABP, PAP, CO, CI - Last Documented Arterial Blood Pressure 103/61 - Labs CBC & Chem 7: 02/23/22 05:03 02/23/22 05:03 Labs: Abnormal Lab Results - Last 24 Hours (Table) 02/22/22 02/22/22 02/22/22 Range/Units 11:59 18:05 23:28 RBC (4.30-5.90) m/uL Hgb (13.0-17.5) gm/dL Hct (39.0-53.0) % MCH (25.0-35.0) pg MCHC (31.0-37.0) g/dL RDW (11.5-15.5) % ABG pH (7.35-7.45) ABG HCO3 (21-25) mmol/L ABG Total CO2 (19-24) mmol/L ABG O2 Saturation (94-97) % ABG Hematocrit (34.0-46.0) % Hemoglobin (13.0-17.5) gm/dL BUN (9-20) mg/dL Creatinine (0.66-1.25) mg/dL Glucose (74-99) mg/dL POC Glucose (mg/dL) 226 H 207 H 228 H (70-110) mg/dL Calcium (8.4-10.2) mg/dL Total Protein (6.3-8.2) g/dL Albumin (3.5-5.0) g/dL 02/23/22 02/23/22 02/23/22 Range/Units 00:01 05:03 05:03 RBC 3.42 L (4.30-5.90) m/uL Hgb 7.5 L (13.0-17.5) gm/dL Hct 27.5 L (39.0-53.0) % MCH 22.1 L (25.0-35.0) pg MCHC 27.4 L (31.0-37.0) g/dL RDW 18.9 H (11.5-15.5) % ABG pH (7.35-7.45) ABG HCO3 (21-25) mmol/L ABG Total CO2 (19-24) mmol/L ABG O2 Saturation (94-97) % ABG Hematocrit (34.0-46.0) % Hemoglobin (13.0-17.5) gm/dL BUN 47 H (9-20) mg/dL Creatinine 1.31 H (0.66-1.25) mg/dL Glucose 175 H (74-99) mg/dL POC Glucose (mg/dL) 211 H (70-110) mg/dL Calcium 7.9 L (8.4-10.2) mg/dL Total Protein 5.2 L (6.3-8.2) g/dL Albumin 2.6 L (3.5-5.0) g/dL 02/23/22 02/23/22 Range/Units 05:05 05:23 RBC (4.30-5.90) m/uL Hgb (13.0-17.5) gm/dL Hct (39.0-53.0) % MCH (25.0-35.0) pg MCHC (31.0-37.0) g/dL RDW (11.5-15.5) % ABG pH 7.48 H (7.35-7.45) ABG HCO3 27 H (21-25) mmol/L ABG Total CO2 28 H (19-24) mmol/L ABG O2 Saturation 97.9 H (94-97) % ABG Hematocrit 22 L (34.0-46.0) % Hemoglobin 7.3 L (13.0-17.5) gm/dL BUN (9-20) mg/dL Creatinine (0.66-1.25) mg/dL Glucose (74-99) mg/dL POC Glucose (mg/dL) 186 H (70-110) mg/dL Calcium (8.4-10.2) mg/dL Total Protein (6.3-8.2) g/dL Albumin (3.5-5.0) g/dL Microbiology - Last 24 Hours (Table) 02/21/22 04:28 Gram Stain - Final Sputum Sputum Culture - Final 02/20/22 22:59 Blood Culture - Preliminary Blood No Growth after 48 hours
[2022-02-23 12:05] LABS: Glucose,Whole Blood 205 mg/dL (70-110)
--- NOTE | 2022-02-23 14:04 | P.PN ---
Subjective Progress Note Date: 02/23/22 CHIEF COMPLAINT: Bacteremia with wound infection HISTORY OF PRESENT ILLNESS: The patient is a 76-year-old male who presented to the hospital with generalized weakness. He is on full mechanical ventilation after pain extubated and reintubated 2 days ago. He has positive blood cultures and is being treated for bacteremia. No new events overnight. ROS: Full mechanical ventilation. Has atrial fibrillation. Has positive blood cultures. PHYSICAL EXAM: VITAL SIGNS: Reviewed CONSTITUTIONAL: Well developed and in no acute distress. EYES: Conjuctivae without sclera icterus. Extraocular movements grossly intact. HEAD, EARS, NOSE, THROAT: Moist buccal mucosa. Head is atraumatic, normocephalic. cNo nasal drainage. RESPIRATORY: Mechanically ventilated. CARDIOVASCULAR: Palpable 2+ radial pulses. ABDOMEN: Dressing clean dry and intact. No cellulitis. MUSCULOSKELETAL: No gross deformity of the lower extremities noted. No clubbing. No cyanosis. SKIN: Good skin turgor. Well perfused. NEUROLOGIC: Cranial nerves II through XII grossly intact. No focal or lateralizing signs. PSYCH: Sedated CLINICAL LABS: Reviewed. WBC normal 8.9 Anemia, hemoglobin 7.4 to 7.5 today ASSESSMENT: 1. Atrial fibrillation 2. Bacteremia 3. MSSA wound infection 4. Hypoxia respiratory failure on mechanical ventilation PLAN: 1. Antibiotics per infectious disease 2. Management of mechanical ventilation per intensive 3. Prognosis guarded Objective - Vital Signs Vital signs: Vital Signs Temp 97.8 F 02/23/22 12:00 Pulse 75 02/23/22 13:00 Resp 24 02/23/22 13:00 BP 95/60 02/23/22 13:00 Pulse Ox 99 02/23/22 13:00 FiO2 40 02/23/22 13:00 Intake & Output 02/22/22 02/23/22 02/23/22 18:59 06:59 18:59 Intake Total 5129.566 3362.133 649.331 Output Total 1460 1100 875 Balance 287.583 432.133 -225.669 Weight 101.5 kg Intake: IV 912 638 256 0.9 KVO 240 260 120 Piperacillin-Tazobactam 3 200 100 100 .375 gm In Sodium Chloride 0.9% 100 ml @ 25 mls/hr IVPB Q8HR [facility] Rx# :[id number] magnesium 200 potassium 200 200 pressure bag 72 78 36 Intake, IV Titration 610.583 594.133 243.331 Amount Amiodarone 360 mg In 346.108 396.109 147.776 Dextrose 5% in Water 200 ml @ 1 MG/MIN 33.333 mls/ hr IV .Q6H [facility] Rx#: [id number] Norepinephrine 32 mg In 64.475 28.221 21.830 Sodium Chloride 0.9% 218 ml @ 0.05 MCG/KG/MIN 2. 344 mls/hr IV .Q24H [facility] Rx#:[id number] propofoL 1,000 mg In 200.000 169.803 73.725 Empty Bag 1 bag @ 5 MCG/ KG/MIN 3.255 mls/hr IV . Q24H [facility] Rx#:[id number] Tube Feeding 225 300 150 Output: Urine 1460 1100 875 Other: Voiding Method Indwelling Catheter Indwelling Catheter Indwelling Catheter # Bowel Movements 1 ABP, PAP, CO, CI - Last Documented Arterial Blood Pressure 98/52 - Labs CBC & Chem 7: 02/23/22 05:03 02/23/22 05:03 Labs: Abnormal Lab Results - Last 24 Hours (Table) 02/22/22 02/22/22 02/23/22 Range/Units 18:05 23:28 00:01 RBC (4.30-5.90) m/uL Hgb (13.0-17.5) gm/dL Hct (39.0-53.0) % MCH (25.0-35.0) pg MCHC (31.0-37.0) g/dL RDW (11.5-15.5) % ABG pH (7.35-7.45) ABG HCO3 (21-25) mmol/L ABG Total CO2 (19-24) mmol/L ABG O2 Saturation (94-97) % ABG Hematocrit (34.0-46.0) % Hemoglobin (13.0-17.5) gm/dL BUN (9-20) mg/dL Creatinine (0.66-1.25) mg/dL Glucose (74-99) mg/dL POC Glucose (mg/dL) 207 H 228 H 211 H (70-110) mg/dL Calcium (8.4-10.2) mg/dL Total Protein (6.3-8.2) g/dL Albumin (3.5-5.0) g/dL 02/23/22 02/23/22 02/23/22 Range/Units 05:03 05:03 05:05 RBC 3.42 L (4.30-5.90) m/uL Hgb 7.5 L (13.0-17.5) gm/dL Hct 27.5 L (39.0-53.0) % MCH 22.1 L (25.0-35.0) pg MCHC 27.4 L (31.0-37.0) g/dL RDW 18.9 H (11.5-15.5) % ABG pH (7.35-7.45) ABG HCO3 (21-25) mmol/L ABG Total CO2 (19-24) mmol/L ABG O2 Saturation (94-97) % ABG Hematocrit (34.0-46.0) % Hemoglobin (13.0-17.5) gm/dL BUN 47 H (9-20) mg/dL Creatinine 1.31 H (0.66-1.25) mg/dL Glucose 175 H (74-99) mg/dL POC Glucose (mg/dL) 186 H (70-110) mg/dL Calcium 7.9 L (8.4-10.2) mg/dL Total Protein 5.2 L (6.3-8.2) g/dL Albumin 2.6 L (3.5-5.0) g/dL 02/23/22 02/23/22 Range/Units 05:23 12:04 RBC (4.30-5.90) m/uL Hgb (13.0-17.5) gm/dL Hct (39.0-53.0) % MCH (25.0-35.0) pg MCHC (31.0-37.0) g/dL RDW (11.5-15.5) % ABG pH 7.48 H (7.35-7.45) ABG HCO3 27 H (21-25) mmol/L ABG Total CO2 28 H (19-24) mmol/L ABG O2 Saturation 97.9 H (94-97) % ABG Hematocrit 22 L (34.0-46.0) % Hemoglobin 7.3 L (13.0-17.5) gm/dL BUN (9-20) mg/dL Creatinine (0.66-1.25) mg/dL Glucose (74-99) mg/dL POC Glucose (mg/dL) 205 H (70-110) mg/dL Calcium (8.4-10.2) mg/dL Total Protein (6.3-8.2) g/dL Albumin (3.5-5.0) g/dL Microbiology - Last 24 Hours (Table) 02/21/22 04:28 Gram Stain - Final Sputum Sputum Culture - Final 02/20/22 22:59 Blood Culture - Preliminary Blood No Growth after 48 hours
[2022-02-23 16:03] VITALS: RESP 24
[2022-02-23 17:38] LABS: Glucose,Whole Blood 198 mg/dL (70-110)
[2022-02-23] MEDS: ASPIRIN 81 MG PO SCH (20:15)
[2022-02-24 01:30] LABS: Glucose,Whole Blood 210 mg/dL (70-110)
[2022-02-24] MEDS: INSULIN ASPART (NovoLOG) 100 UNIT/ML VIAL SQ SCH ×3 (01:33→13:15)
[2022-02-24] MEDS: PIPERACILLIN-TAZOBACTAM 3.375 GM in SODIUM CHLORIDE 0.9% 100 ML IVPB SCH ×2 (01:34→08:27)
[2022-02-24 02:16] LABS: Glucose,Whole Blood 218 mg/dL (70-110)
[2022-02-24] MEDS: IPRATROPIUM-ALBUTEROL 3 ML NEB INHALATION SCH ×4 (03:07→15:07)
[2022-02-24] MEDS: AMIODARONE 360 MG in DEXTROSE 5% IN WATER 200 ML IV SCH ×4 (04:38→10:37)
[2022-02-24 05:30] LABS: ABG Base Excess 3.8 mmol/L; ABG HCO3 27 mmol/L (21-25); ABG Oxygen Saturation 98.9 % (94-97); ABG PCO2 35 mmHg (35-45); ABG PH 7.49 (7.35-7.45); ABG PO2 103 mmHg (83-108); ABG TCO2 28 mmol/L (19-24)
[2022-02-24 05:35] LABS: ABG Hematocrit 24 % (34.0-46.0); Allen Test Performed? no
[2022-02-24 07:05] LABS: Glucose,Whole Blood 205 mg/dL (70-110)
--- NOTE | 2022-02-24 07:38 | XR ---
EXAMINATION TYPE: XR chest 1V portable DATE OF EXAM: 02/24/2022 COMPARISON: Chest x-ray 02/23/2022 HISTORY: Intubated TECHNIQUE: Single frontal view of the chest is obtained. FINDINGS: Patient is rotated. Endotracheal tube, right subclavian central venous catheter are overly ing appropriate positions. There is an NG tube in place, side-port is at the level of the distal esop hagus. Patchy bilateral airspace disease is present, the hemidiaphragms are obscured. No evident pneu mothorax or there are overlying leads. Cardiac mediastinal silhouette is stable. Aorta is dense. Ther e is thoracic spondylosis. IMPRESSION: Correlate for congestive heart failure, possible pleural effusions, pneumonia and pulmon alli edema not excluded versus atelectasis. The heart is enlarged. NG tube as described, side-port wit hin the distal thoracic esophagus.
[2022-02-24 07:51] LABS: Glucose,Whole Blood 210 mg/dL (70-110)
--- NOTE | 2022-02-24 07:51 | P.PN ---
Subjective Progress Note Date: 02/23/22 Principal diagnosis: Possible sepsis Patient is a 76-year-old male with a past medical history again for diverticulitis recurrent GI bleed in this patient who is status post laparotomy and no anterior resection on 01/15/2022 subsequently the patient was at the long term from it the patient was brought for evaluation of confusion and increasing shortness of breath patient did not get intubated. The patient was extubated 02/19/2022, patient did have worsening respiratory status and ended up getting reintubated on 02/21/2022 On today's evaluation that is 02/20/2022, the patient is afebrile this morning, the patient is sedated on the vent and FiO2 is stable at 40 % patient is requiring a low-dose pressor support , no significant purulent secretion through the ET or diarrhea reported by the nursing staff Objective - Vital Signs Vital signs: Vital Signs Temp 97.8 F 02/23/22 12:00 Pulse 87 02/23/22 15:33 Resp 14 02/23/22 15:00 BP 93/65 02/23/22 15:00 Pulse Ox 98 02/23/22 15:00 FiO2 40 02/23/22 15:30 Intake & Output 02/22/22 02/23/22 02/23/22 18:59 06:59 18:59 Intake Total 0383.957 8981.133 951.331 Output Total 1460 1100 955 Balance 287.583 432.133 -3.669 Weight 101.5 kg Intake: IV 912 638 508 0.9 KVO 240 260 160 Anidulafungin 200 mg In 200 Sodium Chloride 0.9% 200 ml @ 84 mls/hr IVPB ONCE ONE Rx#:[id number] Piperacillin-Tazobactam 3 200 100 100 .375 gm In Sodium Chloride 0.9% 100 ml @ 25 mls/hr IVPB Q8HR [facility] Rx# :[id number] magnesium 200 potassium 200 200 pressure bag 72 78 48 Intake, IV Titration 610.583 594.133 243.331 Amount Amiodarone 360 mg In 346.108 396.109 147.776 Dextrose 5% in Water 200 ml @ 1 MG/MIN 33.333 mls/ hr IV .Q6H [facility] Rx#: [id number] Norepinephrine 32 mg In 64.475 28.221 21.830 Sodium Chloride 0.9% 218 ml @ 0.05 MCG/KG/MIN 2. 344 mls/hr IV .Q24H [facility] Rx#:[id number] propofoL 1,000 mg In 200.000 169.803 73.725 Empty Bag 1 bag @ 5 MCG/ KG/MIN 3.255 mls/hr IV . Q24H [facility] Rx#:[id number] Tube Feeding 225 300 200 Output: Urine 1460 1100 955 Other: Voiding Method Indwelling Catheter Indwelling Catheter Indwelling Catheter # Bowel Movements 1 ABP, PAP, CO, CI - Last Documented Arterial Blood Pressure 92/53 - Exam GENERAL DESCRIPTION: An elderly male intubated on the vent RESPIRATORY SYSTEM: Unlabored breathing , coarse breath sounds bilaterally HEART: S1 S2 regular rate and rhythm , ABDOMEN: Soft , no tenderness EXTREMITIES: 2plus edema feet - Labs CBC & Chem 7: 02/23/22 05:03 02/23/22 05:03 Labs: Abnormal Lab Results - Last 24 Hours (Table) 02/22/22 02/22/22 02/23/22 Range/Units 18:05 23:28 00:01 RBC (4.30-5.90) m/uL Hgb (13.0-17.5) gm/dL Hct (39.0-53.0) % MCH (25.0-35.0) pg MCHC (31.0-37.0) g/dL RDW (11.5-15.5) % ABG pH (7.35-7.45) ABG HCO3 (21-25) mmol/L ABG Total CO2 (19-24) mmol/L ABG O2 Saturation (94-97) % ABG Hematocrit (34.0-46.0) % Hemoglobin (13.0-17.5) gm/dL BUN (9-20) mg/dL Creatinine (0.66-1.25) mg/dL Glucose (74-99) mg/dL POC Glucose (mg/dL) 207 H 228 H 211 H (70-110) mg/dL Calcium (8.4-10.2) mg/dL Total Protein (6.3-8.2) g/dL Albumin (3.5-5.0) g/dL 02/23/22 02/23/22 02/23/22 Range/Units 05:03 05:03 05:05 RBC 3.42 L (4.30-5.90) m/uL Hgb 7.5 L (13.0-17.5) gm/dL Hct 27.5 L (39.0-53.0) % MCH 22.1 L (25.0-35.0) pg MCHC 27.4 L (31.0-37.0) g/dL RDW 18.9 H (11.5-15.5) % ABG pH (7.35-7.45) ABG HCO3 (21-25) mmol/L ABG Total CO2 (19-24) mmol/L ABG O2 Saturation (94-97) % ABG Hematocrit (34.0-46.0) % Hemoglobin (13.0-17.5) gm/dL BUN 47 H (9-20) mg/dL Creatinine 1.31 H (0.66-1.25) mg/dL Glucose 175 H (74-99) mg/dL POC Glucose (mg/dL) 186 H (70-110) mg/dL Calcium 7.9 L (8.4-10.2) mg/dL Total Protein 5.2 L (6.3-8.2) g/dL Albumin 2.6 L (3.5-5.0) g/dL 02/23/22 02/23/22 Range/Units 05:23 12:04 RBC (4.30-5.90) m/uL Hgb (13.0-17.5) gm/dL Hct (39.0-53.0) % MCH (25.0-35.0) pg MCHC (31.0-37.0) g/dL RDW (11.5-15.5) % ABG pH 7.48 H (7.35-7.45) ABG HCO3 27 H (21-25) mmol/L ABG Total CO2 28 H (19-24) mmol/L ABG O2 Saturation 97.9 H (94-97) % ABG Hematocrit 22 L (34.0-46.0) % Hemoglobin 7.3 L (13.0-17.5) gm/dL BUN (9-20) mg/dL Creatinine (0.66-1.25) mg/dL Glucose (74-99) mg/dL POC Glucose (mg/dL) 205 H (70-110) mg/dL Calcium (8.4-10.2) mg/dL Total Protein (6.3-8.2) g/dL Albumin (3.5-5.0) g/dL Microbiology - Last 24 Hours (Table) 02/21/22 04:28 Gram Stain - Final Sputum Sputum Culture - Final 02/20/22 22:59 Blood Culture - Preliminary Blood No Growth after 48 hours Assessment and Plan (1) Abdominal wall defect, acquired Current Visit: Yes Status: Acute Code(s): M95.8 - OTH ACQUIRED DEFORMITIES OF MUSCULOSKELETAL SYSTEM SNOMED Code(s): 093985775726327 (2) Pneumonia Current Visit: Yes Status: Acute Code(s): J18.9 - PNEUMONIA, UNSPECIFIED ORGANISM SNOMED Code(s): 088587452 Plan: 1patient presented to hospital with confusion and increasing shortness of breath in this patient with evidence of ascites effusion and 3+ edema feet likely related to fluid overload underlying pneumonia less likely but not entirely excluded. 2patient with a nonhealing lower abdominal wound however there is no evidence of any surrounding redness and CT abdominal pelvis did not mention any abscess. 3abdominal cultures are growing MSSA and anaerobes, the patient sputum is growing Malathi. 4patient didn't have resolution of fever, repeat culture are currently pending the patient did have a normal white count, patient to continue with Zosyn and continue supportive care Time with Patient: Less than 30
--- NOTE | 2022-02-24 08:02 | P.PN ---
Subjective Progress Note Date: 02/24/22 PROGRESS NOTE The patient is a 76-year-old male with a known history of severe aortic stenosis who presented with respiratory failure, hypercapnia requiring mechanical ventilation, he was extubated and subsequently intubated. He had evidence of surgical site wound infection. He remains intubated. He is a DO NOT RESUSCITATE. There is evidence to suggest septic shock and worsening acute renal function. He had paroxysmal atrial fibrillation. He was started on IV amiodarone. He had no evidence of ventricle tachycardia. His echocardiogram showed an ejection fraction of 45% with severe aortic stenosis and mild pulmonary hypertension Medications: IV amiodarone, aspirin, Lovenox subcu, Lasix 40 mg IV every 12 hours PHYSICAL EXAMINATION: Blood pressure 112/50 heart rate 72, intubated and sedated LUNGS: Decreased breath sounds at the base HEART: Regular rate and rhythm, S1, S2. No S3. systolic ejection murmur, 08/11 ABDOMEN: Soft, hypoactive bowel sounds, no organomegaly, dressing in place EXTREMETIES: +1 edema LAB: PH 7.49, pCO2 35, pO2 103, yesterday BUN 47 and creatinine 1.31 IMPRESSION: 1. Respiratory failure with hypoxemia and hypercapnia 2. Severe aortic stenosis 3. Paroxysmal atrial fibrillation 4. Renal failure 5. Surgical wound infection 6. Anemia PLAN: 1. Continue supportive care 2. Prognosis is poor 3. According to the records there is a question of comfort care measures per family 4. Depending on his progress further recommendations will be made Objective - Vital Signs Vital signs: Vital Signs Temp 98.6 F 02/24/22 04:00 Pulse 69 02/24/22 07:47 Resp 24 02/24/22 07:47 BP 97/60 02/24/22 05:00 Pulse Ox 100 02/24/22 06:00 FiO2 40 02/24/22 07:44 Intake & Output 02/23/22 02/24/22 02/24/22 18:59 06:59 18:59 Intake Total 8262.056 5575.958 Output Total 1105 970 Balance 266.384 355.958 Intake: IV 586 412 0.9 KVO 220 240 Anidulafungin 200 mg In 200 Sodium Chloride 0.9% 200 ml @ 84 mls/hr IVPB ONCE ONE Rx#:[id number] Piperacillin-Tazobactam 3 100 100 .375 gm In Sodium Chloride 0.9% 100 ml @ 25 mls/hr IVPB Q8HR [facility] Rx# :[id number] pressure bag 66 72 Intake, IV Titration 510.384 523.958 Amount Amiodarone 360 mg In 347.776 386.109 Dextrose 5% in Water 200 ml @ 1 MG/MIN 33.333 mls/ hr IV .Q6H [facility] Rx#: [id number] Norepinephrine 32 mg In 21.830 Sodium Chloride 0.9% 218 ml @ 0.05 MCG/KG/MIN 2. 344 mls/hr IV .Q24H [facility] Rx#:[id number] propofoL 1,000 mg In 140.778 137.849 Empty Bag 1 bag @ 5 MCG/ KG/MIN 3.255 mls/hr IV . Q24H [facility] Rx#:[id number] Tube Feeding 275 300 Other 90 Output: Urine 1105 970 Other: Voiding Method Indwelling Catheter Indwelling Catheter # Bowel Movements 0 ABP, PAP, CO, CI - Last Documented Arterial Blood Pressure 114/54 - Labs CBC & Chem 7: 02/23/22 05:03 02/23/22 05:03 Labs: Abnormal Lab Results - Last 24 Hours (Table) 02/23/22 02/23/22 02/24/22 Range/Units 12:04 17:37 01:27 ABG pH (7.35-7.45) ABG HCO3 (21-25) mmol/L ABG Total CO2 (19-24) mmol/L ABG O2 Saturation (94-97) % ABG Hematocrit (34.0-46.0) % Hemoglobin (13.0-17.5) gm/dL POC Glucose (mg/dL) 205 H 198 H 210 H (70-110) mg/dL 02/24/22 02/24/22 02/24/22 Range/Units 02:14 05:28 07:04 ABG pH 7.49 H (7.35-7.45) ABG HCO3 27 H (21-25) mmol/L ABG Total CO2 28 H (19-24) mmol/L ABG O2 Saturation 98.9 H (94-97) % ABG Hematocrit 24 L (34.0-46.0) % Hemoglobin 7.7 L (13.0-17.5) gm/dL POC Glucose (mg/dL) 218 H 205 H (70-110) mg/dL 02/24/22 Range/Units 07:49 ABG pH (7.35-7.45) ABG HCO3 (21-25) mmol/L ABG Total CO2 (19-24) mmol/L ABG O2 Saturation (94-97) % ABG Hematocrit (34.0-46.0) % Hemoglobin (13.0-17.5) gm/dL POC Glucose (mg/dL) 210 H (70-110) mg/dL Microbiology - Last 24 Hours (Table) 02/20/22 22:59 Blood Culture - Preliminary Blood No Growth after 72 hours 02/21/22 04:28 Gram Stain - Final Sputum Sputum Culture - Final
[2022-02-24] MEDS: NOREPINEPHRINE 32 MG in SODIUM CHLORIDE 0.9% 218 ML IV SCH ×2 (08:17→11:50)
[2022-02-24] MEDS: CHLORHEXIDINE GLUCONATE 15 ML CUP MUCOUS MEM SCH (08:28)
[2022-02-24] MEDS: FUROSEMIDE 10 MG/ML 4 ML VIAL IV SCH (08:28)
[2022-02-24] MEDS: PANTOPRAZOLE 40 MG/10 ML VIAL IVP SCH (08:28)
[2022-02-24] MEDS: ENOXAPARIN 100 MG/ML SYRINGE SQ SCH (08:28)
[2022-02-24] MEDS: OXYBUTYNIN CHLORIDE 5 MG TAB PO SCH (08:36)
[2022-02-24] MEDS: COLLAGENASE 250 UNIT/GM OINTMENT 30 GM TUBE TOPICAL SCH (08:36)
[2022-02-24 08:53] LABS: Anisocytosis Slight; HCT 28.5 % (39.0-53.0); HGB 7.7 gm/dL (13.0-17.5); Hypochromasia Marked; MCH 21.8 pg (25.0-35.0); MCHC 26.9 g/dL (31.0-37.0); MCV 80.8 fL (80.0-100.0); Mean Platelet Volume 7.7; Microcytosis Slight; Platelet Count 361 k/uL (150-450); Poikilocytosis Moderate; RBC 3.53 m/uL (4.30-5.90); RDW 18.9 % (11.5-15.5)
[2022-02-24 09:01] LABS: Calcium 7.5 mg/dL (8.4-10.2); Potassium 3.6 mmol/L (3.5-5.1)
[2022-02-24 09:12] LABS: Band Neutrophils % 3 %; Eosinophils # (M) 0.08 k/uL (0-0.7); Lymphocytes # (M) 0.65 k/uL (1.0-4.8); Metamyelocytes # (M) 0.16 k/uL (0); Metamyelocytes % 2 %; Monocytes # (M) 0.32 k/uL (0-1.0); Myelocytes # (M) 0.16 k/uL (0); Myelocytes % 2 %; Neutrophils % (M) 80 %; Nucleated Red Blood Cells 2 /100 WBC (0-0); Total Cells Counted 100; WBC 8.1 k/uL (3.8-10.6)
[2022-02-24 09:13] LABS: Poikilocytosis (M) Present; Polychromasia Present; Stomatocytes Present
[2022-02-24] MEDS ORDERED: Potassium Replacement Protocol 1 EACH MISC MISCELLANE PRN (09:39)
--- NOTE | 2022-02-24 09:44 | P.PN ---
Subjective Progress Note Date: 02/24/22 On today's evaluation of 02/24/2022, I'm seeing the patient for a follow-up. This morning, the patient is sedated and the patient is currently on propofol running at 25 mcg/kg per minute. The patient is intubated on a mechanical ventilator and the patient is very meticulous a mechanical ventilator and the patient is currently on assist control mode at the rate of 24 with a tidal volume of 450 and FiO2 of 40% with a PEEP of 5. The blood gases from today shows a pH of 7.49 with a pCO2 of 35 and pO2 of 103. As such, there is a component of respiratory alkalosis. The patient is on IV fluids at KVO at 20 mL an hour. The patient is requiring pressors and norepinephrine infusion is running at a low dose of 0.08 mcg/kg per minute. His underlying cardiac rhythm is sinus and the patient is also on amiodarone at 1 g per minute. the chest x- ray from today shows adequate positioning of the ET tube. The patient also has an NG tube in place. There is bilateral pulmonary infiltrates involving both upper and the lower lobes and there is also evidence of bilateral pleural effusion. The heart is also enlarged. On today's blood work, the patient's white cell count of 8.0 with a hemoglobin of 7.7 and platelet count of 361. The patient's sodium level is at 139 with a potassium level of 3.6, BUN is 46 with a creatinine of 1.1. The most recent cultures are showing Malathi in the sputum from 02/13/2022 and abdominal wound cultures showed anaerobic gram-negative bacillus as the patient has an infected abdominal wound with secondary dehiscence and the current antibiotic coverage includes IV Zosyn. Infectious disease is also on the case. The patient is receiving enteral feeding for nutritional support and the patient is currently on vital high protein at the rate of 30 mL an hour. He is on Lovenox therapeutic doses of the dose of 100 mg every 12 hours of the patient has episodes of underlying atrial fibrillation. IV Protonix 40 mg every 24 hours. In summary, this patient was admitted to the hospital on 02/13/2022. He did have a surgical resection of the colon for severe diverticulosis and recurrent bleeds. He had a copy. Postoperative course and he was discharged to [facility]. Following that, the patient developed altered mentation, abdominal pain, wound infection and dehiscence and the patient was hospitalized and since then the patient has been having issues with hypoxic and hypercapnic respiratory failure, not tolerating weaning or extubation. He did develop also bilateral pneumonias and bilateral pleural effusions. His comorbidities are also multiple. The patient is known to have severe aortic stenosis with diastolic heart failure. He is diabetic and has hypertension and during the course of his illness, he developed an acute kidney injury and the renal function is improving for now and the creatinine is down to 1.1. Family is considering hospice care based on his complicated course and poor outcome. Objective - Vital Signs Vital signs: Vital Signs Temp 98.6 F 02/24/22 04:00 Pulse 69 02/24/22 07:47 Resp 24 02/24/22 07:47 BP 101/62 02/24/22 07:00 Pulse Ox 100 02/24/22 07:00 FiO2 40 02/24/22 07:44 Intake & Output 02/23/22 02/24/22 02/24/22 18:59 06:59 18:59 Intake Total 7626.374 4833.958 26 Output Total 1105 970 45 Balance 266.384 355.958 -19 Weight 103 kg Intake: IV 586 412 26 0.9 KVO 220 240 20 Anidulafungin 200 mg In 200 Sodium Chloride 0.9% 200 ml @ 84 mls/hr IVPB ONCE ONE Rx#:[id number] Piperacillin-Tazobactam 3 100 100 .375 gm In Sodium Chloride 0.9% 100 ml @ 25 mls/hr IVPB Q8HR [facility] Rx# :[id number] pressure bag 66 72 6 Intake, IV Titration 510.384 523.958 Amount Amiodarone 360 mg In 347.776 386.109 Dextrose 5% in Water 200 ml @ 1 MG/MIN 33.333 mls/ hr IV .Q6H [facility] Rx#: [id number] Norepinephrine 32 mg In 21.830 Sodium Chloride 0.9% 218 ml @ 0.05 MCG/KG/MIN 2. 344 mls/hr IV .Q24H [facility] Rx#:[id number] propofoL 1,000 mg In 140.778 137.849 Empty Bag 1 bag @ 5 MCG/ KG/MIN 3.255 mls/hr IV . Q24H [facility] Rx#:[id number] Tube Feeding 275 300 Other 90 Output: Urine 1105 970 45 Other: Voiding Method Indwelling Catheter Indwelling Catheter # Bowel Movements 0 ABP, PAP, CO, CI - Last Documented Arterial Blood Pressure 112/54 - Exam No acute distress, reintubated, with an orally placed endotracheal tube and NG tube. Sedated on propofol Head exam was generally normal. There was no scleral icterus or corneal arcus. Mucous membranes were moist. Neck supple. Full range of motion. No adenopathy thyromegaly or neck vein distention. Cardiovascular examination reveals regular rhythm rate. S1-S2 normal. No S3 or S4. A systolic murmur is noted. Heart sounds are distant. Lungs reveal scattered bilateral rhonchi. No wheezes. No crackles. Breath sounds equal bilaterally. Abdomen soft, with minimal bowel sounds. Surgical dressings are noted. Doppler wound was inspected. There are 2 areas where the wound is open and the base of these wounds are essentially clear this point in time. There is no active drainage and the wound base is essentially dry. Rest of the abdominal wound incision is intact. Extremities are intact. No cyanosis clubbing and he has plus 1 edema. Pulses are diminished in all 4 extremities. There are palpable. Skin is without rash or lesion. Neurologic examination shows that the patient is sedated on propofol. The pa tient withdraws and grimaces to deep painful stimulation and all 4 extremities. Adequate motor and sensory assessment cannot be done. - Labs CBC & Chem 7: 02/24/22 08:42 02/24/22 08:42 Labs: Abnormal Lab Results - Last 24 Hours (Table) 02/23/22 02/23/22 02/24/22 Range/Units 12:04 17:37 01:27 RBC (4.30-5.90) m/uL Hgb (13.0-17.5) gm/dL Hct (39.0-53.0) % MCH (25.0-35.0) pg MCHC (31.0-37.0) g/dL RDW (11.5-15.5) % Lymphocytes # (Manual) (1.0-4.8) k/uL Metamyelocytes # (Man) (0) k/uL Myelocytes # (Manual) (0) k/uL Nucleated RBCs (0-0) /100 WBC ABG pH (7.35-7.45) ABG HCO3 (21-25) mmol/L ABG Total CO2 (19-24) mmol/L ABG O2 Saturation (94-97) % ABG Hematocrit (34.0-46.0) % Hemoglobin (13.0-17.5) gm/dL BUN (9-20) mg/dL Glucose (74-99) mg/dL POC Glucose (mg/dL) 205 H 198 H 210 H (70-110) mg/dL Calcium (8.4-10.2) mg/dL 02/24/22 02/24/22 02/24/22 Range/Units 02:14 05:28 07:04 RBC (4.30-5.90) m/uL Hgb (13.0-17.5) gm/dL Hct (39.0-53.0) % MCH (25.0-35.0) pg MCHC (31.0-37.0) g/dL RDW (11.5-15.5) % Lymphocytes # (Manual) (1.0-4.8) k/uL Metamyelocytes # (Man) (0) k/uL Myelocytes # (Manual) (0) k/uL Nucleated RBCs (0-0) /100 WBC ABG pH 7.49 H (7.35-7.45) ABG HCO3 27 H (21-25) mmol/L ABG Total CO2 28 H (19-24) mmol/L ABG O2 Saturation 98.9 H (94-97) % ABG Hematocrit 24 L (34.0-46.0) % Hemoglobin 7.7 L (13.0-17.5) gm/dL BUN (9-20) mg/dL Glucose (74-99) mg/dL POC Glucose (mg/dL) 218 H 205 H (70-110) mg/dL Calcium (8.4-10.2) mg/dL 02/24/22 02/24/22 02/24/22 Range/Units 07:49 08:42 08:42 RBC 3.53 L (4.30-5.90) m/uL Hgb 7.7 L (13.0-17.5) gm/dL Hct 28.5 L (39.0-53.0) % MCH 21.8 L (25.0-35.0) pg MCHC 26.9 L (31.0-37.0) g/dL RDW 18.9 H (11.5-15.5) % Lymphocytes # (Manual) 0.65 L (1.0-4.8) k/uL Metamyelocytes # (Man) 0.16 H (0) k/uL Myelocytes # (Manual) 0.16 H (0) k/uL Nucleated RBCs 2 H (0-0) /100 WBC ABG pH (7.35-7.45) ABG HCO3 (21-25) mmol/L ABG Total CO2 (19-24) mmol/L ABG O2 Saturation (94-97) % ABG Hematocrit (34.0-46.0) % Hemoglobin (13.0-17.5) gm/dL BUN 46 H (9-20) mg/dL Glucose 192 H (74-99) mg/dL POC Glucose (mg/dL) 210 H (70-110) mg/dL Calcium 7.5 L (8.4-10.2) mg/dL Microbiology - Last 24 Hours (Table) 02/20/22 22:59 Blood Culture - Preliminary Blood No Growth after 72 hours 02/21/22 04:28 Gram Stain - Final Sputum Sputum Culture - Final Assessment and Plan Plan: Acute hypoxemic and hypercapnic respiratory failure, requiring intubation and mechanical ventilation on February 13, 2022, status post extubation on 02/19/2022. Acute respiratory failure, requiring reintubation on 02/21/2022. The most recent chest x-ray showing bilateral pulmonary consolidations and bilateral pleural effusions the patient remains on IV Zosyn. This could be a combination of pneumonia and CHF. Blood gases from today shows a component of respiratory alkalosis. The patient has adequate oxygenation and FiO2 of 40% with a PEEP of 5. Probable sepsis/septic shock, the patient is requiring low-dose pressors for now and the most recent cultures of been negative. Abdominal wound is dry and there is no active drainage. Most recent cultures are all negative. Surgical site wound infection, secondary to methicillin sensitive Staphylococcus aureus. The patient had an abdominal wound that had dehisced. This was a surgical for bowel resection. The patient has no active drainage from the surgical wound. The patient remains on IV Zosyn. General surgeries on the case. Acute kidney injury, improving Severe aortic stenosis, the patient has a ejection fraction LV of 40-45% Chronic diastolic CHF. Type 2 diabetes mellitus, currently on a sliding scale insulin coverage Chronic anemia, hemoglobin stable Benign essential hypertension. Chronic anemia and hemoglobin is at 7.5 History of bowel resection, December 2021. Enteral feeding for nutrition support and the patient is receiving vital high protein at the rate of 30 mL an hour Plan: Keep the patient sedated with propofol and perform daily sedation holidays and assess mental status Continue ventilator support No vent changes for today Chest exam blood gases were noted Would like to increase his diuretics and keep the patient nothing by mouth for now. The chest x-ray findings could be a combination of pneumonia and CHF as the patient has significant valvular heart disease. Repeat cultures will be obtained also. We'll start the patient on diuresis with Lasix 40 mg IV every 12 hours. Acute kidney injury has improved the patient's creatinine has stabilized. Creatinine is down to 1.1 Continue enteral feeding for nutritional support Continue IV Zosyn Continue supportive care We'll have a further discussion with the family and discuss goals of treatment. The patient was reintubated on 02/21/2022 Long-term prognosis poor baseline above-mentioned comorbidities. We'll continue to follow make further recommendations. This critically care evaluation that was on a more than 30 minutes. Time with Patient: Greater than 30
[2022-02-24 10:00] VITALS: TEMP 97.9
[2022-02-24 10:05] VITALS: BMI 36.6
[2022-02-24] MEDS: POTASSIUM CHLORIDE 10 MEQ in WATER FOR INJECTION 1 100ML.BAG IVPB SCH ×2 (10:07→11:47)
--- NOTE | 2022-02-24 10:41 | P.PN ---
Subjective Progress Note Date: 02/24/22 Patient was seen and examined. Unfortunately, patient was reintubated on 11/21. Ventilator settings rate 24, tidal volume 450, FiO2 40%, PEEP of 5. CBC shows hemoglobin of 7.7. BMP shows BUN of 46, calcium of 7.5. General: Intubated Derm: warm, dry Head: atraumatic, normocephalic, symmetric Eyes: EOMI, no lid lag, anicteric sclera Mouth: no lip lesion, mucus membranes moist Cardiovascular: Irregularly irregular, systolic ejection murmur Lungs: Coarse breath sounds bilaterally, ventilator dependent Abdominal: soft, abdominal dressing c/d/i Ext: no gross muscle atrophy, no edema, no contractures Neuro: Unable to accurately assess Psych: Unable to accurately assess Assessment/plan: Atrial fibrillation with RVR - Continue amiodarone drip - Cardiology on board Acute Hypoxemic and Hypercarbic Respiratory Failure Septic Shock with Toxic/Metabolic Encephalopathy Hospital Acquired Pneumonia Surgical Site Infection s/p Bowel Resection Acute Kidney Injury - Extubated 02/19, reintubated 02/21/2022 - Admit to ICU, telemetry - ICU, ID consultation appreciated - Wound Care consult - Surgery consult - Nephrology consult - Bronchodilators - Zosyn - f/u BCx - NGTD, Wound Cx - staph aureus - Lasix 40 mg IV today for 1 - Levophed - Monitor I/Os, UOP - Daily labs Severe Aortic Stenosis Chronic Diastolic Heart Failure - Strict I/Os, daily weights - Cardiology on board - Echocardiogram shows EF of 45% with moderate concentric LVH, severe calcification of the mitral valve, severe aortic stenosis Normocytic anemia -Stable DM - Insulin sliding scale SC Q6H Resolved: Hypokalemia NO CODE but OK with intubation DVT PPX heparin SC BID Palliative care to have a family meeting today. Poor prognosis. Objective - Vital Signs Vital signs: Vital Signs Temp 97.9 F 02/24/22 08:00 Pulse 71 02/24/22 10:00 Resp 24 02/24/22 10:00 BP 93/60 02/24/22 10:00 Pulse Ox 99 02/24/22 10:00 FiO2 40 02/24/22 08:00 Intake & Output 02/23/22 02/24/22 02/24/22 18:59 06:59 18:59 Intake Total 3975.060 5417.958 493.442 Output Total 1105 970 295 Balance 266.384 355.958 198.442 Weight 103 kg 103 kg Intake: IV 586 412 204 0.9 KVO 220 240 80 Anidulafungin 200 mg In 200 Sodium Chloride 0.9% 200 ml @ 84 mls/hr IVPB ONCE ONE Rx#:[id number] Piperacillin-Tazobactam 3 100 100 100 .375 gm In Sodium Chloride 0.9% 100 ml @ 25 mls/hr IVPB Q8HR [facility] Rx# :[id number] pressure bag 66 72 24 Intake, IV Titration 510.384 523.958 199.442 Amount Amiodarone 360 mg In 347.776 386.109 199.442 Dextrose 5% in Water 200 ml @ 1 MG/MIN 33.333 mls/ hr IV .Q6H [facility] Rx#: [id number] Norepinephrine 32 mg In 21.830 Sodium Chloride 0.9% 218 ml @ 0.05 MCG/KG/MIN 2. 344 mls/hr IV .Q24H [facility] Rx#:[id number] propofoL 1,000 mg In 140.778 137.849 Empty Bag 1 bag @ 5 MCG/ KG/MIN 3.255 mls/hr IV . Q24H [facility] Rx#:[id number] Tube Feeding 275 300 90 Other 90 Output: Urine 1105 970 295 Other: Voiding Method Indwelling Catheter Indwelling Catheter # Bowel Movements 0 ABP, PAP, CO, CI - Last Documented Arterial Blood Pressure 113/52 - Labs CBC & Chem 7: 02/24/22 08:42 02/24/22 08:42 Labs: Abnormal Lab Results - Last 24 Hours (Table) 02/23/22 02/23/22 02/24/22 Range/Units 12:04 17:37 01:27 RBC (4.30-5.90) m/uL Hgb (13.0-17.5) gm/dL Hct (39.0-53.0) % MCH (25.0-35.0) pg MCHC (31.0-37.0) g/dL RDW (11.5-15.5) % Lymphocytes # (Manual) (1.0-4.8) k/uL Metamyelocytes # (Man) (0) k/uL Myelocytes # (Manual) (0) k/uL Nucleated RBCs (0-0) /100 WBC ABG pH (7.35-7.45) ABG HCO3 (21-25) mmol/L ABG Total CO2 (19-24) mmol/L ABG O2 Saturation (94-97) % ABG Hematocrit (34.0-46.0) % Hemoglobin (13.0-17.5) gm/dL BUN (9-20) mg/dL Glucose (74-99) mg/dL POC Glucose (mg/dL) 205 H 198 H 210 H (70-110) mg/dL Calcium (8.4-10.2) mg/dL 02/24/22 02/24/22 02/24/22 Range/Units 02:14 05:28 07:04 RBC (4.30-5.90) m/uL Hgb (13.0-17.5) gm/dL Hct (39.0-53.0) % MCH (25.0-35.0) pg MCHC (31.0-37.0) g/dL RDW (11.5-15.5) % Lymphocytes # (Manual) (1.0-4.8) k/uL Metamyelocytes # (Man) (0) k/uL Myelocytes # (Manual) (0) k/uL Nucleated RBCs (0-0) /100 WBC ABG pH 7.49 H (7.35-7.45) ABG HCO3 27 H (21-25) mmol/L ABG Total CO2 28 H (19-24) mmol/L ABG O2 Saturation 98.9 H (94-97) % ABG Hematocrit 24 L (34.0-46.0) % Hemoglobin 7.7 L (13.0-17.5) gm/dL BUN (9-20) mg/dL Glucose (74-99) mg/dL POC Glucose (mg/dL) 218 H 205 H (70-110) mg/dL Calcium (8.4-10.2) mg/dL 02/24/22 02/24/22 02/24/22 Range/Units 07:49 08:42 08:42 RBC 3.53 L (4.30-5.90) m/uL Hgb 7.7 L (13.0-17.5) gm/dL Hct 28.5 L (39.0-53.0) % MCH 21.8 L (25.0-35.0) pg MCHC 26.9 L (31.0-37.0) g/dL RDW 18.9 H (11.5-15.5) % Lymphocytes # (Manual) 0.65 L (1.0-4.8) k/uL Metamyelocytes # (Man) 0.16 H (0) k/uL Myelocytes # (Manual) 0.16 H (0) k/uL Nucleated RBCs 2 H (0-0) /100 WBC ABG pH (7.35-7.45) ABG HCO3 (21-25) mmol/L ABG Total CO2 (19-24) mmol/L ABG O2 Saturation (94-97) % ABG Hematocrit (34.0-46.0) % Hemoglobin (13.0-17.5) gm/dL BUN 46 H (9-20) mg/dL Glucose 192 H (74-99) mg/dL POC Glucose (mg/dL) 210 H (70-110) mg/dL Calcium 7.5 L (8.4-10.2) mg/dL Microbiology - Last 24 Hours (Table) 02/20/22 22:59 Blood Culture - Preliminary Blood No Growth after 72 hours 02/21/22 04:28 Gram Stain - Final Sputum Sputum Culture - Final
--- NOTE | 2022-02-24 12:09 | P.PN ---
Subjective Progress Note Date: 02/24/22 Principal diagnosis: Possible sepsis Patient is a 76-year-old male with a past medical history again for diverticulitis recurrent GI bleed in this patient who is status post laparotomy and no anterior resection on 01/15/2022 subsequently the patient was at the halfway from it the patient was brought for evaluation of confusion and increasing shortness of breath patient did not get intubated. The patient was extubated 02/19/2022, patient did have worsening respiratory status and ended up getting reintubated on 02/21/2022 On today's evaluation that is 02/24/2022, the patient remains to be afebrile, the patient is sedated on the vent and FiO2 is stable at 40 % patient is requiring a low-dose pressor support per the nursing staff , no significant purulent secretion through the ET or diarrhea reported by the nursing staff Objective - Vital Signs Vital signs: Vital Signs Temp 97.9 F 02/24/22 08:00 Pulse 71 02/24/22 10:00 Resp 24 02/24/22 10:00 BP 93/60 02/24/22 10:00 Pulse Ox 99 02/24/22 10:00 FiO2 40 02/24/22 08:00 Intake & Output 02/23/22 02/24/22 02/24/22 18:59 06:59 18:59 Intake Total 5529.565 5627.958 646.794 Output Total 1105 970 295 Balance 266.384 355.958 351.794 Weight 103 kg 103 kg Intake: IV 586 412 204 0.9 KVO 220 240 80 Anidulafungin 200 mg In 200 Sodium Chloride 0.9% 200 ml @ 84 mls/hr IVPB ONCE ONE Rx#:[id number] Piperacillin-Tazobactam 3 100 100 100 .375 gm In Sodium Chloride 0.9% 100 ml @ 25 mls/hr IVPB Q8HR [facility] Rx# :[id number] pressure bag 66 72 24 Intake, IV Titration 510.384 523.958 352.794 Amount Amiodarone 360 mg In 347.776 386.109 199.442 Dextrose 5% in Water 200 ml @ 1 MG/MIN 33.333 mls/ hr IV .Q6H [facility] Rx#: [id number] Norepinephrine 32 mg In 21.830 95.25 Sodium Chloride 0.9% 218 ml @ 0.05 MCG/KG/MIN 2. 344 mls/hr IV .Q24H [facility] Rx#:[id number] propofoL 1,000 mg In 140.778 137.849 58.102 Empty Bag 1 bag @ 5 MCG/ KG/MIN 3.255 mls/hr IV . Q24H [facility] Rx#:[id number] Tube Feeding 275 300 90 Other 90 Output: Urine 1105 970 295 Other: Voiding Method Indwelling Catheter Indwelling Catheter Indwelling Catheter # Bowel Movements 0 ABP, PAP, CO, CI - Last Documented Arterial Blood Pressure 113/52 - Exam GENERAL DESCRIPTION: An elderly male intubated on the vent RESPIRATORY SYSTEM: Unlabored breathing , coarse breath sounds bilaterally HEART: S1 S2 regular rate and rhythm , ABDOMEN: Soft , no tenderness EXTREMITIES: 2plus edema feet - Labs CBC & Chem 7: 02/24/22 08:42 02/24/22 08:42 Labs: Abnormal Lab Results - Last 24 Hours (Table) 02/23/22 02/24/22 02/24/22 Range/Units 17:37 01:27 02:14 RBC (4.30-5.90) m/uL Hgb (13.0-17.5) gm/dL Hct (39.0-53.0) % MCH (25.0-35.0) pg MCHC (31.0-37.0) g/dL RDW (11.5-15.5) % Lymphocytes # (Manual) (1.0-4.8) k/uL Metamyelocytes # (Man) (0) k/uL Myelocytes # (Manual) (0) k/uL Nucleated RBCs (0-0) /100 WBC ABG pH (7.35-7.45) ABG HCO3 (21-25) mmol/L ABG Total CO2 (19-24) mmol/L ABG O2 Saturation (94-97) % ABG Hematocrit (34.0-46.0) % Hemoglobin (13.0-17.5) gm/dL BUN (9-20) mg/dL Glucose (74-99) mg/dL POC Glucose (mg/dL) 198 H 210 H 218 H (70-110) mg/dL Calcium (8.4-10.2) mg/dL 02/24/22 02/24/2202/24/22 Range/Units 05:28 07:04 07:49 RBC (4.30-5.90) m/uL Hgb (13.0-17.5) gm/dL Hct (39.0-53.0) % MCH (25.0-35.0) pg MCHC (31.0-37.0) g/dL RDW (11.5-15.5) % Lymphocytes # (Manual) (1.0-4.8) k/uL Metamyelocytes # (Man) (0) k/uL Myelocytes # (Manual) (0) k/uL Nucleated RBCs (0-0) /100 WBC ABG pH 7.49 H (7.35-7.45) ABG HCO3 27 H (21-25) mmol/L ABG Total CO2 28 H (19-24) mmol/L ABG O2 Saturation 98.9 H (94-97) % ABG Hematocrit 24 L (34.0-46.0) % Hemoglobin 7.7 L (13.0-17.5) gm/dL BUN (9-20) mg/dL Glucose (74-99) mg/dL POC Glucose (mg/dL) 205 H 210 H (70-110) mg/dL Calcium (8.4-10.2) mg/dL 02/24/22 02/24/22 Range/Units 08:42 08:42 RBC 3.53 L (4.30-5.90) m/uL Hgb 7.7 L (13.0-17.5) gm/dL Hct 28.5 L (39.0-53.0) % MCH 21.8 L (25.0-35.0) pg MCHC 26.9 L (31.0-37.0) g/dL RDW 18.9 H (11.5-15.5) % Lymphocytes # (Manual) 0.65 L (1.0-4.8) k/uL Metamyelocytes # (Man) 0.16 H (0) k/uL Myelocytes # (Manual) 0.16 H (0) k/uL Nucleated RBCs 2 H (0-0) /100 WBC ABG pH (7.35-7.45) ABG HCO3 (21-25) mmol/L ABG Total CO2 (19-24) mmol/L ABG O2 Saturation (94-97) % ABG Hematocrit (34.0-46.0) % Hemoglobin (13.0-17.5) gm/dL BUN 46 H (9-20) mg/dL Glucose 192 H (74-99) mg/dL POC Glucose (mg/dL) (70-110) mg/dL Calcium 7.5 L (8.4-10.2) mg/dL Microbiology - Last 24 Hours (Table) 02/20/22 22:59 Blood Culture - Preliminary Blood No Growth after 72 hours 02/21/22 04:28 Gram Stain - Final Sputum Sputum Culture - Final Assessment and Plan (1) Abdominal wall defect, acquired Current Visit: Yes Status: Acute Code(s): M95.8 - OTH ACQUIRED DEFORMITIES OF MUSCULOSKELETAL SYSTEM SNOMED Code(s): 227053314908605 (2) Pneumonia Current Visit: Yes Status: Acute Code(s): J18.9 - PNEUMONIA, UNSPECIFIED ORGANISM SNOMED Code(s): 094466726 Plan: 1patient presented to hospital with confusion and increasing shortness of breath in this patient with evidence of ascites effusion and 3+ edema feet likely related to fluid overload underlying pneumonia less likely but not entirely excluded. 2patient with a nonhealing lower abdominal wound however there is no evidence of any surrounding redness and CT abdominal pelvis did not mention any abscess. 3abdominal cultures are growing MSSA and anaerobes, the patient sputum is growing Malathi. 4patient did have resolution of fever, repeat culture are so far negative the patient did have a normal white count, patient to continue with Zosyn however plain is for possible hospice oriented care this afternoon which may be appropriate for him Family the bedside questions answered Time with Patient: Less than 30
--- NOTE | 2022-02-24 14:16 | P.CONS ---
History of Present Illness - Reason for Consult Consult date: 02/24/22 Goals of care Requesting physician: Jessie Leonardo - Chief Complaint Abdominal pain - History of Present Illness The patient is a 76 year-old male who was admitted to the hospital on 02/13/2022. He did have a surgical resection of the colon for severe diverticulosis and recurrent bleeds. He was discharged to [facility]. Following that, the patient developed altered mentation, abdominal pain, wound infection and dehiscence and the patient was hospitalized and since then the patient has been having issues with hypoxic and hypercapnic respiratory failure, not tolerating w eaning or extubation. He did develop also bilateral pneumonias and bilateral pleural effusions. His comorbidities are also multiple. The patient is known to have severe aortic stenosis with diastolic heart failure. He is diabetic and has hypertension and during the course of his illness, he developed an acute kidney injury and the renal function is improving for now and the creatinine is down to 1.1. The patient is intubated on a mechanical ventilator and requiring pressors. His underlying cardiac rhythm is sinus and the patient is also on amiodarone at 1 g per minute. The chest x-ray from today shows adequate positioning of the ET tube. The patient also has an NG tube in place. There is bilateral pulmonary infiltrates involving both upper and the lower lobes and there is also evidence of bilateral pleural effusion. The heart is also enlarged. The most recent cultures are showing Malathi in the sputum from 02/13/2022 and abdominal wound cultures showed anaerobic gram-negative bacillus as the patient has an infected abdominal wound with secondary dehiscence and the current antibiotic coverage includes IV Zosyn. Infectious disease is also on the case. The patient is receiving enteral feeding for nutritional support. Review of Systems ROS unobtainable: due to endotracheal tube Past Medical History Past Medical History: Blood Disorder, Diabetes Mellitus, Hyperlipidemia, Hypertension Additional Past Medical History / Comment(s): Past rectal bleeds, polycythemia, NIDDM, recently had lower 5 teeth extracted, R lower leg edema, heart murmur, DDD with occasional back pain. History of Any Multi-Drug Resistant Organisms: None Reported Past Surgical History: Bowel Resection, Tonsillectomy Additional Past Surgical History / Comment(s): Colonoscopies, bilateral cataract removals/lens implants, R mastoid surgery at age 4 yrs. Past Anesthesia/Blood Transfusion Reactions: No Reported Reaction Past Psychological History: No Psychological Hx Reported Smoking Status: Former smoker Past Alcohol Use History: None Reported Past Drug Use History: None Reported - Past Family History Father History Unknown: Yes Family Medical History: No Reported History Additional Family Medical History / Comment(s): Father was healthy and lived into his 90s. Mother History Unknown: Yes Medications and Allergies Home Medications Medication Instructions Recorded Confirmed Type Aspirin EC [Ecotrin Low Dose] 81 mg PO HS 12/10/21 02/12/22 History Multivitamins, Thera [Multivitamin 1 tab PO HS 12/10/21 02/12/22 History (formulary)] [place]-3/Dha/Epa/Fish Oil [Fish Oil 1 cap PO HS 12/10/21 02/12/22 History 1,000 mg Softgel] Oxybutynin Chloride [Ditropan] 5 mg PO BID 12/10/21 02/12/22 History Pravastatin Sodium [Pravachol] 40 mg PO HS@199912/10/21 02/12/22 History Testosterone Cypionate 200 mg IM Q10D 12/10/21 02/12/22 History [Depo-Testosterone] metFORMIN HCL [Glucophage] 500 mg PO BID 12/10/21 02/12/22 History Pantoprazole [Protonix] 40 mg PO DAILY #30 tab 12/13/21 02/12/22 Rx Acetaminophen Tab [Tylenol Tab] 1,000 mg PO Q6H PRN 02/12/22 02/12/22 History Ferrocite 324mg 1 tab PO HS 02/12/22 02/12/22 History Furosemide [Lasix] 40 mg PO DAILY 02/12/22 02/12/22 History Healthshake 1 dose PO BID@0800,1600 02/12/22 02/12/22 History Melatonin 3 mg PO HS PRN 02/12/22 02/12/22 History Psyllium Husk 100% [Metamucil 1 tbsp PO DAILY 02/12/22 02/12/22 History Packet] Allergies Allergy/AdvReac Type Severity Reaction Status Date / Time No Known Allergies Allergy Verified 02/12/22 16:03 Physical Exam Vitals: Vital Signs Temp Pulse Resp BP Pulse Ox FiO2 02/24/22 10:00 71 24 93/60 99 02/24/22 09:00 73 24 102/61 99 02/24/22 08:00 97.9 F 73 24 98/61 99 40 02/24/22 07:47 69 24 02/24/22 07:44 40 02/24/22 07:38 77 24 02/24/22 07:31 40 02/24/22 07:00 72 24 101/62 100 02/24/22 06:00 72 24 100 02/24/22 05:00 73 24 97/60 99 02/24/22 04:00 98.6 F 73 24 99 40 02/24/22 03:15 73 02/24/22 03:09 70 02/24/22 03:08 40 02/24/22 03:00 73 25 H 99 02/24/22 02:00 73 24 99 02/24/22 01:00 73 24 98 02/24/22 00:00 98.4 F 73 25 H 98 40 02/23/22 23:34 72 02/23/22 23:22 70 02/23/22 23:21 40 02/23/22 23:00 73 24 99 02/23/22 22:00 74 24 99 02/23/22 21:00 73 24 99 02/23/22 20:00 98.4 F 73 24 97 40 02/23/22 19:39 73 25 H 100 02/23/22 19:06 81 02/23/22 19:00 70 24 93/60 100 40 02/23/22 18:54 40 02/23/22 18:53 74 02/23/22 18:00 72 24 93/59 99 40 02/23/22 17:00 73 24 88/59 97 40 02/23/22 16:00 98.7 F 78 24 96/55 98 40 02/23/22 15:43 88 02/23/22 15:33 87 02/23/22 15:30 40 02/23/22 15:00 80 14 93/65 98 40 02/23/22 14:00 74 24 96/62 98 40 02/23/22 13:00 75 24 95/60 99 40 02/23/22 12:00 97.8 F 77 24 93/60 99 40 02/23/22 11:17 80 02/23/22 11:02 79 02/23/22 11:00 78 24 107/65 96 40 Intake and Output 0902/24/22 02/24/22 22:59 06:59 14:59 Intake Total 1149.321 847.690 493.442 Output Total 520 640 295 Balance 629.321 207.690 198.442 Intake: IV 408 308 204 0.9 KVO 160 160 80 Anidulafungin 200 mg In 200 Sodium Chloride 0.9% 200 ml @ 84 mls/hr IVPB ONCE ONE Rx#:[id number] Piperacillin-Tazobactam 3 100 100 .375 gm In Sodium Chloride 0.9% 100 ml @ 25 mls/hr IVPB Q8HR [facility] Rx# :[id number] pressure bag 48 48 24 Intake, IV Titration 511.321 279.690 199.442 Amount Amiodarone 360 mg In 400 186.109 199.442 Dextrose 5% in Water 200 ml @ 1 MG/MIN 33.333 mls/ hr IV .Q6H [facility] Rx#: [id number] propofoL 1,000 mg In 111.321 93.581 Empty Bag 1 bag @ 5 MCG/ KG/MIN 3.255 mls/hr IV . Q24H [facility] Rx#:[id number] Tube Feeding 200 200 90 Other 30 60 Output: Urine 520 640 295 Other: Voiding Method Indwelling Catheter Indwelling Catheter # Bowel Movements 0 Weight 103 kg 103 kg ABP, PAP, CO, CI - Last 8 Hours Arterial Blood Pressure 113/52 Arterial Blood Pressure 113/52 Arterial Blood Pressure 116/55 Arterial Blood Pressure 112/54 Arterial Blood Pressure 114/54 Arterial Blood Pressure 114/54 Arterial Blood Pressure 105/50 Arterial Blood Pressure 111/51 General: Well developed, well nourished. No acute distress. HEENT: Head is atraumatic, normocephalic. Sclerae are clear. Mucus membranes moist. CV: Heart regular in rate and rhythm positive S1 and S2. + murmur. Lungs: Satered rhonchi throughout. Respirations even and nonlabored. ET tube in place Abdomen/GI: Soft. Bowel sounds present in all 4 quadrants.No guarding, rigidity, or abdominal tenderness. OG tube with tube feeding. : Palmer draining clear yellow urine Musculoskeletal/ Extremities: No joint deformity or swelling. No gross atrophy. Vascular: +1 peripheral edema Skin: Warm and dry, No rash or lesions. Neurologic: Limited exam, patient sedated. Withdraws from painful stimulus. Results CBC & Chem 7: 02/24/22 08:42 02/24/22 08:42 Labs: Abnormal Lab Results - Last 24 Hours (Table) 02/23/22 02/23/22 02/24/22 Range/Units 12:04 17:37 01:27 RBC (4.30-5.90) m/uL Hgb (13.0-17.5) gm/dL Hct (39.0-53.0) % MCH (25.0-35.0) pg MCHC (31.0-37.0) g/dL RDW (11.5-15.5) % Lymphocytes # (Manual) (1.0-4.8) k/uL Metamyelocytes # (Man) (0) k/uL Myelocytes # (Manual) (0) k/uL Nucleated RBCs (0-0) /100 WBC ABG pH (7.35-7.45) ABG HCO3 (21-25) mmol/L ABG Total CO2 (19-24) mmol/L ABG O2 Saturation (94-97) % ABG Hematocrit (34.0-46.0) % Hemoglobin (13.0-17.5) gm/dL BUN (9-20) mg/dL Glucose (74-99) mg/dL POC Glucose (mg/dL) 205 H 198 H 210 H (70-110) mg/dL Calcium (8.4-10.2) mg/dL 02/24/22 02/24/22 02/24/22 Range/Units 02:14 05:28 07:04 RBC (4.30-5.90) m/uL Hgb (13.0-17.5) gm/dL Hct (39.0-53.0) % MCH (25.0-35.0) pg MCHC (31.0-37.0) g/dL RDW (11.5-15.5) % Lymphocytes # (Manual) (1.0-4.8) k/uL Metamyelocytes # (Man) (0) k/uL Myelocytes # (Manual) (0) k/uL Nucleated RBCs (0-0) /100 WBC ABG pH 7.49 H (7.35-7.45) ABG HCO3 27 H (21-25) mmol/L ABG Total CO2 28 H (19-24) mmol/L ABG O2 Saturation 98.9 H (94-97) % ABG Hematocrit 24 L (34.0-46.0) % Hemoglobin 7.7 L (13.0-17.5) gm/dL BUN (9-20) mg/dL Glucose (74-99) mg/dL POC Glucose (mg/dL) 218 H 205 H (70-110) mg/dL Calcium (8.4-10.2) mg/dL 02/24/22 02/24/22 02/24/22 Range/Units 07:49 08:42 08:42 RBC 3.53 L (4.30-5.90) m/uL Hgb 7.7 L (13.0-17.5) gm/dL Hct 28.5 L (39.0-53.0) % MCH 21.8 L (25.0-35.0) pg MCHC 26.9 L (31.0-37.0) g/dL RDW 18.9 H (11.5-15.5) % Lymphocytes # (Manual) 0.65 L (1.0-4.8) k/uL Metamyelocytes # (Man) 0.16 H (0) k/uL Myelocytes # (Manual) 0.16 H (0) k/uL Nucleated RBCs 2 H (0-0) /100 WBC ABG pH (7.35-7.45) ABG HCO3 (21-25) mmol/L ABG Total CO2 (19-24) mmol/L ABG O2 Saturation (94-97) % ABG Hematocrit (34.0-46.0) % Hemoglobin (13.0-17.5) gm/dL BUN 46 H (9-20) mg/dL Glucose 192 H (74-99) mg/dL POC Glucose (mg/dL) 210 H (70-110) mg/dL Calcium 7.5 L (8.4-10.2) mg/dL Microbiology - Last 24 Hours (Table) 02/20/22 22:59 Blood Culture - Preliminary Blood No Growth after 72 hours 02/21/22 04:28 Gram Stain - Final Sputum Sputum Culture - Final Chest x-ray: report reviewed CT scan - abdomen: report reviewed CT Scan - head: report reviewed CT scan - pelvis: report reviewed Assessment and Plan Assessment: Symptoms * Pain - CPOT 0 * Fatigue - CARI, sedated * SOB - intubated * Insomnia - sedated * N/V - None * Anxiety - none * Depression - CARI * Confusion - Sedated * Agitation - No * Hallucinations - CARI * Appetite/weight loss - OGT present with tube feeding * Dysphagia - CARI, intubated * Constipation - LBM 02/22 * Incontinence - Palmer * Itch - CARI Plan: Summary/Goals - Patient intubated, sedated, and appears comfortable. Daughter, Osiel, at bedside. Education provided regarding the patient's current status and poor prognosis. The patient has respiratory failure with bilateral upper and lower lobe pneumonia and pleural effusions. He has been extubated, re-intubated, and not tolerating SBT's. The family was informed that the next step would be discussing a trach and peg with the critical care team. The daughters stated that they have had discussions with their dad in the past and would not want to live like this. They stated they have thought things through all weekend. They would like to withdraw care. They were educated on the process of a compassionate wean. They are concerned about the timing due to work and other commitments. They were informed that there is no way to predict an exact time frame. The daughters stated they have more family coming up to the hospital at 5pm. They would like to extubate then. Dr. Gordon notified via perfect serve. RN aware. Recommendations - Terminal wean Advanced Directives - No Code Status - DNR Thank you for this consult Shasta Merritt [facility] Palliative Care [facility] [id number] Email: [email or web address] Time with Patient: Greater than 30
--- NOTE | 2022-02-24 15:33 | P.PN ---
Progress Note - Text Progress Note Date: 02/24/22 The patient remains in the ICU on the ventilator. Apparently family history decided perform a terminal wean tonight. The patient is clinically unchanged from 3 days ago. We will respect his wishes.
[2022-02-24] MEDS ORDERED: MORPHINE SULFATE 10 MG/ML 1ML VIAL IVP ONE (16:46)
[2022-02-24] MEDS ORDERED: ATROPINE OPHTH SOLN 1% 5ML BTL SUBLINGUAL PRN (16:46)
[2022-02-24] MEDS ORDERED: LORazepam 1 MG/0.5 ML VIAL IV PRN (16:46)
[2022-02-24] MEDS ORDERED: MORPHINE SULFATE 4 MG/ML SYRINGE IV PRN (16:46)
[2022-02-24 16:55] VITALS: PULSE 68
[2022-02-24] MEDS ORDERED: MORPHINE SULFATE (100 MG/2 ML) 100 MG in SODIUM CHLORIDE 0.9% 100 ML IV SCH (17:00)
[2022-02-24] MEDS ORDERED: SCOPOLAMINE 1 MG/72 HR PATCH TRANSDERM SCH (17:00)
[2022-02-24 18:00] VITALS: BP 92/58
== END 2022-02-24 21:45 | disposition expired | DRG 870 ==
LOC: EC 14:32 → 3SCARD 19:40 → 2SICU 21:52
PROVIDERS: ADMIT Internal Medicine; ATTEND Internal Medicine
PROC: 5A09357 Assistance with Respiratory Ventilation, Less than 24 Consecutive Hours, Continuous Positive Airway Pressure (ICD-10-PCS; 2022-02-12)
PROC: 0BH17EZ Insertion of Endotracheal Airway into Trachea, Via Natural or Artificial Opening (ICD-10-PCS; principal; 2022-02-13)
PROC: 5A1955Z Respiratory Ventilation, Greater than 96 Consecutive Hours (ICD-10-PCS; principal; 2022-02-13)
PROC: 03HY32Z Insertion of Monitoring Device into Upper Artery, Percutaneous Approach (ICD-10-PCS; 2022-02-13)
PROC: 4A133J1 Monitoring of Arterial Pulse, Peripheral, Percutaneous Approach (ICD-10-PCS; 2022-02-13)
PROC: 4A133B1 Monitoring of Arterial Pressure, Peripheral, Percutaneous Approach (ICD-10-PCS; 2022-02-13)
PROC: 02HV33Z Insertion of Infusion Device into Superior Vena Cava, Percutaneous Approach (ICD-10-PCS; 2022-02-13)
PROC: 3E0G76Z Introduction of Nutritional Substance into Upper GI, Via Natural or Artificial Opening (ICD-10-PCS; 2022-02-13)
PROC: 0DH67UZ Insertion of Feeding Device into Stomach, Via Natural or Artificial Opening (ICD-10-PCS; 2022-02-13)
PROC: 3E043XZ Introduction of Vasopressor into Central Vein, Percutaneous Approach (ICD-10-PCS; 2022-02-13)
PROC: 5A1945Z Respiratory Ventilation, 24-96 Consecutive Hours (ICD-10-PCS; 2022-02-21)
PROC: 0BH17EZ Insertion of Endotracheal Airway into Trachea, Via Natural or Artificial Opening (ICD-10-PCS; 2022-02-21)
DX: A41.02 Sepsis due to Methicillin resistant Staphylococcus aureus (principal); G92.8 Other toxic encephalopathy; I21.4 Non-ST elevation (NSTEMI) myocardial infarction; I50.43 Acute on chronic combined systolic (congestive) and diastolic (congestive) heart failure; J18.9 Pneumonia, unspecified organism; J96.21 Acute and chronic respiratory failure with hypoxia; J96.22 Acute and chronic respiratory failure with hypercapnia; N17.0 Acute kidney failure with tubular necrosis; R65.21 Severe sepsis with septic shock; E87.4 Mixed disorder of acid-base balance; I13.0 Hypertensive heart and chronic kidney disease with heart failure and stage 1 through stage 4 chronic kidney disease, or unspecified chronic kidney disease; I47.1 Supraventricular tachycardia; I48.92 Unspecified atrial flutter; J98.11 Atelectasis; R18.8 Other ascites; T81.31XA Disruption of external operation (surgical) wound, not elsewhere classified, initial encounter; T81.41XA Infection following a procedure, superficial incisional surgical site, initial encounter; D50.0 Iron deficiency anemia secondary to blood loss (chronic); Z20.822 Contact with and (suspected) exposure to COVID-19; Z51.5 Encounter for palliative care; Z66 Do not resuscitate; N18.9 Chronic kidney disease, unspecified; I08.0 Rheumatic disorders of both mitral and aortic valves; I27.20 Pulmonary hypertension, unspecified; E11.22 Type 2 diabetes mellitus with diabetic chronic kidney disease; F32.A Depression, unspecified; E78.5 Hyperlipidemia, unspecified; D75.1 Secondary polycythemia; E87.5 Hyperkalemia; E87.6 Hypokalemia; Y95 Nosocomial condition; G47.00 Insomnia, unspecified; I45.10 Unspecified right bundle-branch block; I48.0 Paroxysmal atrial fibrillation; K56.41 Fecal impaction; K57.30 Diverticulosis of large intestine without perforation or abscess without bleeding; L98.492 Non-pressure chronic ulcer of skin of other sites with fat layer exposed; R13.10 Dysphagia, unspecified; R32 Unspecified urinary incontinence; Z91.81 History of falling; Z79.01 Long term (current) use of anticoagulants; Z79.84 Long term (current) use of oral hypoglycemic drugs; Z79.899 Other long term (current) drug therapy; Z87.891 Personal history of nicotine dependence; Z90.49 Acquired absence of other specified parts of digestive tract
CPT/HCPCS: 36415; 36600; 70450; 71045; 71046; 74177; 76604; 80048; 80053; 80076; 81001; 82140; 82150; 82803; 82805; 83605; 83690; 83735; 83880; 84132; 84145; 84484; 85025; 85027; 85610; 85730; 86140; 87040; 87070; 87075; 87077; 87186; 87205; 87635; 93005; 93306; 94002; 94003; 94640; 94660; 96361; 96374; 96375; 99291